=== PATIENT | female | born 1975 | race Caucasian/White ===

== ENCOUNTER 2016-11-20 13:37 | Emergency (ER) | payer MEDICAID ==
[2016-11-20] MEDS ORDERED: DEXAMETHASONE 10 MG/ML VIAL PO STA (14:23)
[2016-11-20] MEDS ORDERED: CHERRY SYRUP 10 ML UDC PO ONE (14:23)
[2016-11-20] MEDS ORDERED: DEXAMETHASONE 10 MG/ML VIAL ONE (14:23)
[2016-11-20] MEDS ORDERED: AMOXICILLIN 250 MG CAPSULE PO STA (14:24)
[2016-11-20] MEDS ORDERED: AMOXICILLIN 250 MG CAPSULE PO ONE (14:26)
== END 2016-11-20 14:39 | disposition home or self-care (01) ==
DX: K04.7 Periapical abscess without sinus (principal); K02.9 Dental caries, unspecified; F17.200 Nicotine dependence, unspecified, uncomplicated
CPT/HCPCS: 99283; A9270

== ENCOUNTER 2017-10-05 15:32 | Emergency (ER) | payer MEDICAID ==
--- NOTE | 2017-10-05 16:42 | ED Physician Documentation ---
PD HPI NVD - Stated complaint Stated Complaint: FLU LIKE SYMPTOMS - Chief complaint Chief Complaint: General - History obtained from History obtained from: Patient - History of Present Illness Timing - onset: How many days ago (3) Timing - duration: Days (3) Timing - details: Abrupt onset, Still present Associated symptoms: Fever, Loss of appetite. 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 ). No: Bad food, Travel, Recent antibiotics Improved by: No: Vomiting Worsened by: Eating Similar symptoms before: Has not had sx before Recently seen: Not recently seen Review of Systems Constitutional: reports: Fever, Chills, Myalgias, Fatigue Nose: reports: Congestion. denies: Rhinorrhea / runny nose Throat: denies: Sore throat Respiratory: reports: Dyspnea, Cough GI: reports: Nausea, Vomiting. denies: Abdominal Pain : denies: Dysuria, Frequency Skin: denies: Rash, Lesions PD PAST MEDICAL HISTORY - Past Medical History Neuro: Headache/migraine - Past Surgical History Past Surgical History: No - Present Medications Home Medications: Ambulatory Orders Medication Instructions Recorded Confirmed Ferrous Sulfate 325 mg PO TID #90 tablet 08/19/15 11/20/16 Sumatriptan Succinate [Imitrex] 25 mg PO Q8H PRN #15 tablet 08/19/15 11/20/16 Amoxicillin 500 mg PO Q8H #30 capsule 11/20/16 HYDROcod/ACETAM 5/325 [[place] 5/325] 1 ea PO Q6H PRN #10 tablet 11/20/16 Ibuprofen [Motrin] 400 mg PO Q6H PRN #30 tablet 11/20/16 Dexamethasone [Decadron] 4 mg PO DAILY #5 tablet 10/05/17 HYDROcod/ACETAM 5/325 [[place] 5/325] 1 tab PO Q6H PRN #12 tablet 10/05/17 Ondansetron Odt [Zofran] 4 mg TL Q6H PRN #15 tablet 10/05/17 Oseltamivir [Tamiflu] 75 mg PO BID #10 capsule 10/05/17 - Allergies Allergies/Adverse Reactions: Allergies Allergy/AdvReac Type Severity Reaction Status Date / Time No Known Drug Allergies Allergy Verified 10/05/17 15:44 - Social History Does the pt smoke?: Yes Smoking Status: Current every day smoker Does the pt drink ETOH?: No Does the pt have substance abuse?: No - Immunizations Immunizations are current?: Yes - POLST Patient has POLST: No PD ED PE NORMAL - Vitals Vital signs reviewed: Yes - General General: Alert and oriented X 3, No acute distress, Well developed/nourished - HEENT HEENT: Ears normal, Pharynx benign. No: Moist mucous membranes - Neck Neck: Supple, no meningeal sign, Other (mild anterior adenopathy) - Cardiac Cardiac: RRR, No murmur - Respiratory Respiratory: Clear bilaterally - Abdomen Abdomen: Normal bowel sounds, Soft, Non tender, Non distended - Back Back: No CVA TTP - Derm Derm: Normal color, Warm and dry, No rash - 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, No motor deficit, Normal speech Results - Vitals Vitals: Oxygen O2 Source Room air - Labs Labs: Laboratory Tests 10/05/17 15:53 Influenza A (Rapid) Negative Influenza B (Rapid) POSITIVE H Influenza Types A,B Ag + H PD MEDICAL DECISION MAKING - ED course Complexity details: reviewed results, considered differential (sounds like the flu. ), d/w patient Departure - Departure Disposition: Home, Self Care Clinical Impression: Influenza B Condition: Stable Record reviewed to determine appropriate education?: Yes Instructions: ED Flu Follow-Up: Trevor Last MD [Primary Care Provider] - Prescriptions: Dexamethasone [Decadron] 4 mg PO DAILY #5 tablet HYDROcod/ACETAM 5/325 [[place] 5/325] 1 tab PO Q6H PRN #12 tablet PRN Reason: Pain Ondansetron Odt [Zofran] 4 mg TL Q6H PRN #15 tablet PRN Reason: Nausea / Vomiting Oseltamivir [Tamiflu] 75 mg PO BID #10 capsule Comments: Drink lots of fluids. Ondansetron if needed for nausea. you can use Decadron for inflammation to try to help with aches and pains. Use Tylenol if needed for fevers and pains. Add hydrocodone if needed for worse pain that can help with some diarrhea as well. Tamiflu can be used to try to reduce the degree of symptoms and shorten the course of the illness. 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 I presume this is likely to be another for 5 more days but he will have to see how you feel. Forms: Activity restrictions Discharge Date/Time: 10/05/17 18:18
[2017-10-05] MEDS ORDERED: ONDANSETRON ODT 4 MG TABLET TL STA (17:17)
[2017-10-05] MEDS ORDERED: DEXAMETHASONE 10 MG/ML VIAL PO STA (17:17)
[2017-10-05] MEDS ORDERED: KETOROLAC 30 MG/ML VIAL IM STA (17:17)
[2017-10-05] MEDS ORDERED: OSELTAMIVIR 75 MG CAPSULE PO STA (17:17)
[2017-10-05] MEDS ORDERED: CHERRY SYRUP 10 ML UDC PO ONE (17:36)
[2017-10-05 17:37] VITALS: BP 126/76
== END 2017-10-05 18:18 | disposition home or self-care (01) ==
LOC: ED 15:32
DX: J10.1 Influenza due to other identified influenza virus with other respiratory manifestations (principal); F17.200 Nicotine dependence, unspecified, uncomplicated
CPT/HCPCS: 87275; 87276; 96372; 99283; A9270; Q0162

== ENCOUNTER 2018-06-08 14:31 | Outpatient (CLI) | payer MEDICAID ==
--- NOTE | 2018-06-08 15:49 | XRAY Report ---
Reason: NUMBNESS TINGLING IN RIGHT ARM, NECK PAIN Procedure Date: 06/08/2018 Accession Number: [id number] / [id number] Procedure: XR - Cervical Spine 2 View CPT Code: FULL RESULT: EXAM: CERVICAL SPINE RADIOGRAPHY EXAM DATE: 06/08/2018 02:54 PM. CLINICAL HISTORY: Numbness, tingling in right arm, neck pain. COMPARISONS: None. TECHNIQUE: 3 views. FINDINGS: Alignment: Normal. No spondylolisthesis or scoliosis. Bones: The cervical vertebral bodies and posterior elements are well visualized from the skull base through C7-T1. No fractures or bone lesions. Disks: Normal. Disk heights are maintained. Facets: No degenerative disease. Soft Tissues: Normal. No prevertebral soft tissue swelling. The visualized lung apices are clear. IMPRESSION: Normal cervical spine radiography. [facility]
== END 2018-06-08 14:32 | disposition home or self-care (01) ==
LOC: DI 14:31
PROVIDERS: ATTEND Physician Assistant Medical
DX: M54.2 Cervicalgia (principal); R20.2 Paresthesia of skin
CPT/HCPCS: 72040

== ENCOUNTER 2018-11-18 13:18 | Emergency (ER) | payer MEDICAID ==
[2018-11-18 13:27] VITALS: BP 111/74
--- NOTE | 2018-11-18 14:12 | ED Physician Documentation ---
History of Present Illness - Stated complaint Stated Complaint: MOUTH PAIN - Chief complaint Chief Complaint: Heent - History obtained from History obtained from: Patient - Additonal information Additional information: Patient is a previously healthy 43-year-old female presenting with concern for dental infection. Patient reports that she has poor dental hygiene at baseline and follows with a dentist. Over the past 1 week, patient has had gum swelling, redness, purulent drainage over the right lower teeth. Patient also reports facial swelling over this area, but no facial erythema. Patient reports area to be extremely painful, but is still able to speak without issue, open her mouth without issue, and eat liquids and solids. No particular symptoms or interventions improve or worsen her complaints. Review of Systems Throat: reports: Dental pain / toothache, Other (Right lower gum swelling and purulent drainage. Poor dental hygiene throughout. Scattered dental caries and multiple missing teeth.Pharyngeal and tonsillar exam benign.) Respiratory: denies: Dyspnea Skin: reports: Other (Mild facial swelling over right lower mandible without erythema) PD PAST MEDICAL HISTORY - Past Medical History Past Medical History: No - Past Surgical History Past Surgical History: No - Present Medications Home Medications: Ambulatory Orders Medication Instructions Recorded Confirmed RX: Ferrous Sulfate 325 mg PO TID #90 tablet 08/19/15 11/20/16 Sumatriptan Succinate [Imitrex] 25 mg PO Q8H PRN #15 tablet 08/19/15 11/20/16 Ibuprofen [Motrin] 400 mg PO Q6H PRN #30 tablet 11/20/16 RX: Amoxicillin 500 mg PO Q8H #30 capsule 11/20/16 RX: HYDROcod/ACETAM 5/325 [[place] 1 ea PO Q6H PRN #10 tablet 11/20/16 5/325] Dexamethasone [Decadron] 4 mg PO DAILY #5 tablet 10/05/17 HYDROcod/ACETAM 5/325 [[place] 5/325] 1 tab PO Q6H PRN #12 tablet 10/05/17 Ondansetron Odt [Zofran] 4 mg TL Q6H PRN #15 tablet 10/05/17 Oseltamivir [Tamiflu] 75 mg PO BID #10 capsule 10/05/17 Chlorhexidine Gluconate [Peridex] 15 ml MM 1-2XD #10 mouthwash 11/18/18 RX: Penicillin Vk 500 mg PO Q6H 10 Days tablet 11/18/18 - Allergies Allergies/Adverse Reactions: Allergies Allergy/AdvReac Type Severity Reaction Status Date / Time No Known Drug Allergies Allergy Verified 11/18/18 13:26 - Social History Does the pt smoke?: Yes Smoking Status: Current every day smoker Does the pt drink ETOH?: No Does the pt have substance abuse?: No - Immunizations Immunizations are current?: Yes - POLST Patient has POLST: No PD ED PE NORMAL - General General: Alert and oriented X 3, No acute distress, Well developed/nourished - HEENT HEENT: Atraumatic, Moist mucous membranes, Pharynx benign, Other (Poor dental hygiene throughout with multiple missing teeth and scattered caries. Purulent drainage with gum swelling to right lower canine. Mild facial swelling without erythema overlying this area.) - Respiratory Respiratory: No respiratory distress - Derm Derm: Normal color, Warm and dry, No rash - 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, Normal speech PD ED PE EXPANDED - HEENT HEENT: Dental abscess Results - Vitals Vitals: Vital Signs - 24 hr 11/18/18 13:25 Temperature 36.5 C Heart Rate 89 Respiratory 20 Rate Blood Pressure 111/74 O2 Saturation 100 Oxygen O2 Source Room air PD MEDICAL DECISION MAKING - ED course Complexity details: considered differential, d/w patient ED course: Patient presenting with poor dental hygiene, multiple missing teeth, scattered dental caries and dental abscess to right lower canine area. Abscess is drain ing along the gumline. Abscess does not appear to continue into sublingual space or submandibular space. No facial erythema or other discolorations, but mild facial swelling overlying this area. No trismus. Do not feel patient is appropriate for dental block given obvious infection. Discussed other interventions including oral antibiotics and mouthwash. Also discussed contacting dentist immediately on Tuesday. Patient voiced understanding and is amenable to discharge plan. Departure - Departure Disposition: 01 Home, Self Care Clinical Impression: Dental abscess Condition: Good Instructions: ED Abscess Dental Follow-Up: Jaydon Herrera PA-C [Primary Care Provider] - Within 3 Days Prescriptions: Chlorhexidine Gluconate [Peridex] 15 ml MM 1-2XD #10 mouthwash RX: Penicillin Vk 500 mg PO Q6H 10 Days tablet Comments: Recommend good oral hygiene. Please use prescribed mouthwash as instructed, as well as take antibiotics as instructed. Please contact her dentist on Tuesday to set up an appointment and otherwise contact her primary care provider in next 2-3 days for follow-up. Please return to ED sooner if experience worsening signs of infection, pain, difficulty swallowing or breathing, difficulty opening your mouth, or other concerns. Discharge Date/Time: 11/18/18 14:37
--- NOTE | 2018-11-19 12:58 | ED Physician Documentation ---
ED Addendum - Addendum Addendum: 11/19/18 12:58 Diagnosis dental abscess Status good
== END 2018-11-18 14:37 | disposition home or self-care (01) ==
LOC: ED 13:18
DX: K04.7 Periapical abscess without sinus (principal); F17.200 Nicotine dependence, unspecified, uncomplicated
CPT/HCPCS: 99283

== ENCOUNTER 2019-08-13 15:07 | Emergency (ER) | payer MEDICAID ==
[2019-08-13] MEDS ORDERED: HYDROcod/ACETAM 5/325 MG TABLET PO STA (16:36)
[2019-08-13] MEDS ORDERED: predniSONE 20 MG TABLET PO STA (16:36)
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
[2019-08-13 17:12] VITALS: BP 159/98
== END 2019-08-13 17:05 | disposition home or self-care (01) ==
LOC: ED 15:07
DX: M54.5 Low back pain (principal); F17.200 Nicotine dependence, unspecified, uncomplicated
CPT/HCPCS: 99282; 99284; A9270; J7512

== ENCOUNTER 2019-09-16 08:00 | Outpatient (CLI) | payer MEDICAID | END 2019-09-16 23:59 | LOC: LAB.R 08:00 | PROVIDERS: ATTEND Family Medicine | DX: F10.929 Alcohol use, unspecified with intoxication, unspecified (principal) | CPT/HCPCS: 80320 ==

== ENCOUNTER 2019-11-17 20:07 | Emergency (ER) | payer MEDICAID ==
--- NOTE | 2019-11-17 20:24 | ED Physician Documentation ---
History of Present Illness - Stated complaint Stated Complaint: CP/BACK PX - Chief complaint Chief Complaint: Cardiac - History obtained from History obtained from: Patient (The patient is a 44-year-old female who presents with multiple complaints. She is complaining of chest pain, back pain, abdominal pain, subjective fever subjective chills subjective cough denies headache neck pain or rashes. Reports she did not take anything prior to arrival. Reports she drinks some milk and then became nauseated.Denies any recent travel outside the country in the last 14 days.) Review of Systems Constitutional: reports: Chills, Myalgias, Reviewed and negative Eyes: reports: Reviewed and negative Ears: reports: Reviewed and negative Nose: reports: Reviewed and negative Throat: reports: Reviewed and negative Cardiac: reports: Palpitations Respiratory: reports: Reviewed and negative GI: reports: Reviewed and negative : reports: Reviewed and negative Skin: reports: Reviewed and negative Musculoskeletal: reports: Back pain Neurologic: reports: Reviewed and negative Psychiatric: reports: Reviewed and negative Endocrine: reports: Reviewed and negative Immunocompromised: reports: Reviewed and negative PD PAST MEDICAL HISTORY - Past Surgical History Past Surgical History: No - Present Medications Home Medications: Ambulatory Orders Medication Instructions Recorded Confirmed Ferrous Sulfate 325 mg PO TID #90 tablet 08/19/15 11/20/16 Sumatriptan Succinate [Imitrex] 25 mg PO Q8H PRN #15 tablet 08/19/15 11/20/16 Amoxicillin 500 mg PO Q8H #30 capsule 11/20/16 HYDROcod/ACETAM 5/325 [[place] 5/325] 1 ea PO Q6H PRN #10 tablet 11/20/16 Ibuprofen [Motrin] 400 mg PO Q6H PRN #30 tablet 11/20/16 HYDROcod/ACETAM 5/325 [[place] 5/325] 1 tab PO Q6H PRN #12 tablet 10/05/17 Ondansetron Odt [Zofran] 4 mg TL Q6H PRN #15 tablet 10/05/17 Oseltamivir [Tamiflu] 75 mg PO BID #10 capsule 10/05/17 dexAMETHasone [Decadron] 4 mg PO DAILY #5 tablet 10/05/17 Chlorhexidine Gluconate [Peridex] 15 ml MM 1-2XD #10 mouthwash 11/18/18 Penicillin Vk 500 mg PO Q6H 10 Days tablet 11/18/18 Hydrocodone/Acetaminophen 1 - 2 each PO Q6H PRN #14 tablet 08/13/19 [Hydrocodon-Acetaminophen 5-325] predniSONE [Deltasone] 20 mg PO [id number] #21 tab 08/13/19 - Allergies Allergies/Adverse Reactions: Allergies Allergy/AdvReac Type Severity Reaction Status Date / Time No Known Drug Allergies Allergy Verified 11/17/19 20:17 - Social History Does the pt smoke?: Yes Smoking Status: Current every day smoker Does the pt drink ETOH?: No Does the pt have substance abuse?: No - Immunizations Immunizations are current?: Yes - POLST Patient has POLST: No PD ED PE NORMAL - Vitals Vital signs reviewed: Yes - General General: Alert and oriented X 3, No acute distress, Well developed/nourished - HEENT HEENT: Atraumatic, PERRL, EOMI, Ears normal, Moist mucous membranes, Pharynx benign, Dentition benign - Neck Neck: Supple, no meningeal sign, No JVD - Cardiac Cardiac: RRR, No murmur, Strong equal pulses - Respiratory Respiratory: No respiratory distress, Clear bilaterally - Abdomen Abdomen: Normal bowel sounds, Soft, Non tender, Non distended, No organomegaly - Female Female : Deferred - Rectal Rectal: Deferred - Back Back: No CVA TTP, No spinal TTP - Derm Derm: Normal color, Warm and dry, No rash - Extremities Extremities: No deformity, No tenderness to palpate, Normal ROM s pain, No edema, No calf tenderness / cord - 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, 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, No motor deficit, No sensory deficit, Normal speech - Psych Psych: Normal mood, Normal affect Results - Vitals Vitals: Vital Signs - 24 hr 11/17/19 11/17/19 11/17/19 20:17 20:29 22:11 Temperature 36.7 C 36.9 C Heart Rate 83 82 Respiratory 14 20 Rate Blood Pressure 170/100 H 142/87 H Blood Pressure 170/100 H [Left] O2 Saturation 98 96 Oxygen O2 Source Room air - EKG (time done) 20:19 Rate: Other (NO STEMI) - Labs Labs: Laboratory Tests 11/17/19 11/17/19 11/17/19 20:15 20:47 20:47 WBC 12.5 H RBC 4.17 L Hgb 13.2 Hct 38.9 MCV 93.3 MCH 31.7 H MCHC 33.9 RDW 14.4 Plt Count 354 MPV 9.3 Neut # (Auto) 9.1 H Lymph # (Auto) 2.6 [place] # (Auto) 0.6 Eos # (Auto) 0.1 Baso # (Auto) 0.1 Absolute Nucleated RBC 0.00 Nucleated RBC % 0.0 PT 11.7 INR 1.0 APTT 28.4 D-Dimer 224.2 Sodium 134 L Potassium 3.5 Chloride 102 Carbon Dioxide 23 Anion Gap 9.0 BUN 18 Creatinine 0.9 Estimated GFR (MDRD) 69 L Glucose 129 H Lactic Acid Calcium 9.1 Total Bilirubin 0.6 Direct Bilirubin 0.1 AST 77 H ALT 30 Alkaline Phosphatase 74 Total Creatine Kinase 73 Troponin I High Sens B-Natriuretic Peptide Total Protein 7.3 Albumin 4.1 Globulin 3.2 Lipase 32 Serum HCG, Qual Urine Color Urine Clarity Urine pH Ur Specific [place] Urine Protein Urine Glucose (UA) Urine Ketones Urine Occult Blood Urine Nitrite Urine Bilirubin Urine Urobilinogen Ur Leukocyte Esterase Urine RBC Urine WBC Ur Squamous Epith Cells Urine Bacteria Urine Mucus Ur Microscopic Review Urine Culture Comments Ethyl Alcohol < 5.0 11/17/19 11/17/19 11/17/19 20:47 20:47 20:47 WBC RBC Hgb Hct MCV MCH MCHC RDW Plt Count MPV Neut # (Auto) Lymph # (Auto) [place] # (Auto) Eos # (Auto) Baso # (Auto) Absolute Nucleated RBC Nucleated RBC % PT INR APTT D-Dimer Sodium Potassium Chloride Carbon Dioxide Anion Gap BUN Creatinine Estimated GFR (MDRD) Glucose Lactic Acid 2.0 Calcium Total Bilirubin Direct Bilirubin AST ALT Alkaline Phosphatase Total Creatine Kinase Troponin I High Sens 2.9 B-Natriuretic Peptide 15 Total Protein Albumin Globulin Lipase Serum HCG, Qual Urine Color Urine Clarity Urine pH Ur Specific [place] Urine Protein Urine Glucose (UA) Urine Ketones Urine Occult Blood Urine Nitrite Urine Bilirubin Urine Urobilinogen Ur Leukocyte Esterase Urine RBC Urine WBC Ur Squamous Epith Cells Urine Bacteria Urine Mucus Ur Microscopic Review Urine Culture Comments Ethyl Alcohol 11/17/19 11/17/19 20:47 21:57 WBC RBC Hgb Hct MCV MCH MCHC RDW Plt Count MPV Neut # (Auto) Lymph # (Auto) [place] # (Auto) Eos # (Auto) Baso # (Auto) Absolute Nucleated RBC Nucleated RBC % PT INR APTT D-Dimer Sodium Potassium Chloride Carbon Dioxide Anion Gap BUN Creatinine Estimated GFR (MDRD) Glucose Lactic Acid Calcium Total Bilirubin Direct Bilirubin AST ALT Alkaline Phosphatase Total Creatine Kinase Troponin I High Sens B-Natriuretic Peptide Total Protein Albumin Globulin Lipase Serum HCG, Qual NEGATIVE Urine Color YELLOW Urine Clarity CLEAR Urine pH 5.5 Ur Specific [place] >=1.030 H Urine Protein NEGATIVE Urine Glucose (UA) NEGATIVE Urine Ketones NEGATIVE Urine Occult Blood SMALL H Urine Nitrite NEGATIVE Urine Bilirubin NEGATIVE Urine Urobilinogen 0.2 (NORMAL) Ur Leukocyte Esterase NEGATIVE Urine RBC 6-10 H Urine WBC 0-3 Ur Squamous Epith Cells MOD Squamous H Urine Bacteria None Seen Urine Mucus Moderate Strands Ur Microscopic Review INDICATED Urine Culture Comments NOT INDICATED Ethyl Alcohol PD MEDICAL DECISION MAKING - ED course Complexity details: reviewed results, re-evaluated patient (23:00 Asymptomatic, pain-free with requesting to be discharged home patient updated on all of her results.), considered differential (Viral syndrome, although unlikely but it is in the differential would be ACS, PE, pneumothorax, esophageal rupture, Cardiac tamponade. Pneumonia bronchitis esophagitis pancreatitis cholecystitis. Given the fact that the patient is now pain-free and asymptomatic her work-up is unremarkable she has a negative chest x-ray negative EKG negative troponin negat reynold d-dimer LFTs are unremarkable lipase is will she does have a mild leukocytosis however she is well-appearing on the a.m. no headache no neck pain no rashes no chest pain on reevaluation no back pain on reevaluation no abdominal pain tolerated p.o. challenge has a steady gait and is asking to be discharged home.), d/w patient Departure - Departure Disposition: 01 Home, Self Care Clinical Impression: Viral syndrome Condition: Stable Instructions: ED Viral Syndrome Follow-Up: Jaydon Herrera PA-C [Primary Care Provider] - Within 3 Days
[2019-11-17] MEDS ORDERED: ASPIRIN CHEW 81 MG TABLET PO STA (20:32)
[2019-11-17] MEDS ORDERED: SODIUM CHLORIDE 0.9% 1,000 ML IV ONE (20:42)
[2019-11-17] MEDS ORDERED: ONDANSETRON 4 MG/2 ML VIAL IVP STA (20:42)
[2019-11-17] MEDS ORDERED: MORPHINE 2 MG/ML CARPUJECT IVP STA (20:42)
[2019-11-17 21:07] LABS: BASOPHILS # (AUTO) 0.1 10^3/uL (0.0-0.1); BASOPHILS % (AUTO) 0.8 %; EOSINOPHILS # (AUTO) 0.1 10^3/uL (0.0-0.7); EOSINOPHILS % (AUTO) 0.7 %; HGB - HEMOGLOBIN 13.2 g/dL (12.0-16.0); LYMPHOCYTES # (AUTO) 2.6 10^3/uL (1.5-3.5); LYMPHOCYTES % (AUTO) 20.5 %; MEAN CORPUSCULAR HEMOGLOBIN 31.7 pg (27.0-31.0); MEAN CORPUSCULAR HGB CONC 33.9 g/dL (32.0-36.0); MEAN CORPUSCULAR VOLUME 93.3 fL (81.0-99.0); MEAN PLATELET VOLUME 9.3 fL (7.9-10.8); MONOCYTES # (AUTO) 0.6 10^3/uL (0.0-1.0); MONOCYTES % (AUTO) 4.9 %; NEUTROPHILS # (AUTO) 9.1 10^3/uL (1.5-6.6); NEUTROPHILS % (AUTO) 72.7 %; PLT - PLATELET COUNT 354 10^3/uL (130-450); RED BLOOD COUNT 4.17 10^6/uL (4.20-5.40); RED CELL DISTRIBUTION WIDTH 14.4 % (12.0-15.0); WHITE BLOOD COUNT 12.5 x10^3/uL (4.8-10.8)
--- NOTE | 2019-11-17 21:24 | XRAY Report ---
Reason: cp Procedure Date: 11/17/2019 Accession Number: [id number] / [id number] Procedure: XR - Chest 2 View X-Ray CPT Code: 71728 Final Report FULL RESULT: EXAM: CHEST RADIOGRAPHY EXAM DATE: 11/17/2019 09:10 PM. CLINICAL HISTORY: Chest pain. COMPARISON: None available. TECHNIQUE: 2 views. FINDINGS: Heart size is normal. No consolidation, pleural effusion, or pneumothorax. IMPRESSION: No acute cardiopulmonary findings. [facility]
[2019-11-17 21:30] LABS: ALBUMIN 4.1 g/dL (3.2-5.5); ALKALINE PHOSPHATASE 74 IU/L (42-121); BUN - BLOOD UREA NITROGEN 18 mg/dL (6-20); CALCIUM 9.1 mg/dL (8.5-10.3); CARBON DIOXIDE - CO2 23 mmol/L (21-32); CHLORIDE 102 mmol/L (101-111); CK- CREATINE KINASE 73 IU/L (22-269); CREATININE 0.9 mg/dL (0.4-1.0); GFR - MDRD 69 (>89); GLUCOSE 129 mg/dL (70-100); LIPASE 32 U/L (22-51); SODIUM 134 mmol/L (135-145); TOTAL PROTEIN 7.3 g/dL (6.7-8.2)
[2019-11-17 21:31] LABS: HCG,QUALITATIVE BLOOD NEGATIVE
[2019-11-17 21:36] LABS: D-DIMER 224.2 ng/mL (200.0-255.0)
[2019-11-17 21:40] LABS: PT - PROTHROMBIN TIME 11.7 secs (9.9-12.6)
[2019-11-17 21:47] LABS: PARTIAL THROMBOPLASTIN TIME 28.4 secs (24.9-33.3)
[2019-11-17 21:49] LABS: ALT ALANINE AMINOTRANSFERASE 30 IU/L (10-60); AST ASPARTATE AMINOTRANSFERASE 77 IU/L (10-42); BILIRUBIN,DIRECT 0.1 mg/dL (0.1-0.5); BILIRUBIN,TOTAL 0.6 mg/dL (0.2-1.0)
[2019-11-17 22:10] LABS: GLUCOSE, URINE (UA) NEGATIVE (NEGATIVE); KETONES,URINE (UA) NEGATIVE (NEGATIVE); LEUKOCYTE ESTERASE, URINE NEGATIVE (NEGATIVE); NITRITE,URINE NEGATIVE (NEGATIVE); OCCULT BLOOD,URINE SMALL (NEGATIVE); PH,URINE 5.5 PH (5.0-7.5); PROTEIN,URINE NEGATIVE (NEGATIVE); UROBILINOGEN,URINE 0.2 (NORMAL) E.U./dL (NORMAL)
[2019-11-17 22:13] LABS: CLARITY,URINE CLEAR (CLEAR)
[2019-11-17 22:14] LABS: BILIRUBIN,URINE NEGATIVE (NEGATIVE); ICTOTEST,URINE NEGATIVE
[2019-11-17 22:24] LABS: BACTERIA,URINE None Seen /HPF (None Seen); MUCUS,URINE Moderate Strands; SQUAMOUS EPITHELIAL CELL,UR MOD Squamous (<= Few)
[2019-11-17 23:18] VITALS: BP 131/81
== END 2019-11-17 23:24 | disposition home or self-care (01) ==
LOC: ED 20:07
DX: B34.9 Viral infection, unspecified (principal); F17.210 Nicotine dependence, cigarettes, uncomplicated
CPT/HCPCS: 36415; 71046; 80048; 80076; 80320; 81001; 82550; 83605; 83690; 83880; 84484; 84703; 85025; 85379; 85610; 85730; 93005; 96361; 96374; 99284; A9270; 81003; 87086

== ENCOUNTER 2019-11-23 07:26 | Outpatient (CLI) | payer MEDICAID ==
[2019-11-23 07:59] LABS: BASOPHILS # (AUTO) 0.1 10^3/uL (0.0-0.1); BASOPHILS % (AUTO) 0.9 %; EOSINOPHILS # (AUTO) 0.1 10^3/uL (0.0-0.7); EOSINOPHILS % (AUTO) 1.5 %; HGB - HEMOGLOBIN 13.6 g/dL (12.0-16.0); LYMPHOCYTES # (AUTO) 3.2 10^3/uL (1.5-3.5); LYMPHOCYTES % (AUTO) 35.2 %; MEAN CORPUSCULAR HEMOGLOBIN 32.2 pg (27.0-31.0); MEAN CORPUSCULAR HGB CONC 33.7 g/dL (32.0-36.0); MEAN CORPUSCULAR VOLUME 95.3 fL (81.0-99.0); MEAN PLATELET VOLUME 9.1 fL (7.9-10.8); MONOCYTES # (AUTO) 0.6 10^3/uL (0.0-1.0); MONOCYTES % (AUTO) 6.4 %; NEUTROPHILS # (AUTO) 5.1 10^3/uL (1.5-6.6); NEUTROPHILS % (AUTO) 55.6 %; PLT - PLATELET COUNT 335 10^3/uL (130-450); RED BLOOD COUNT 4.23 10^6/uL (4.20-5.40); WHITE BLOOD COUNT 9.2 x10^3/uL (4.8-10.8)
[2019-11-23 08:04] LABS: ALBUMIN/GLOBULIN RATIO 1.2 (1.0-2.2); ALKALINE PHOSPHATASE 73 IU/L (42-121); ALT ALANINE AMINOTRANSFERASE 27 IU/L (10-60); AST ASPARTATE AMINOTRANSFERASE 45 IU/L (10-42); BILIRUBIN,TOTAL 0.9 mg/dL (0.2-1.0); BUN - BLOOD UREA NITROGEN 16 mg/dL (6-20); CALCIUM 9.1 mg/dL (8.5-10.3); CARBON DIOXIDE - CO2 25 mmol/L (21-32); CHLORIDE 102 mmol/L (101-111); CHOL/HDL RATIO 3.1 (<4.4); CHOLESTEROL 234 mg/dL; CREATININE 0.7 mg/dL (0.4-1.0); GFR - MDRD 92 (>89); GLUCOSE 93 mg/dL (70-100); HDL CHOLESTEROL 76 mg/dL; LDL CHOLESTEROL,CALCULATED 142 mg/dL; LDL/HDL RATIO 1.9 (<4.4); SODIUM 135 mmol/L (135-145); TOTAL PROTEIN 7.3 g/dL (6.7-8.2); VLDL CHOLESTEROL 16 mg/dL
== END 2019-11-23 07:27 | disposition home or self-care (01) ==
LOC: LAB 07:26
PROVIDERS: ATTEND Physician Assistant Medical
DX: I10 Essential (primary) hypertension (principal); F17.200 Nicotine dependence, unspecified, uncomplicated
CPT/HCPCS: 36415; 80050; 80061; 83721

== ENCOUNTER 2020-01-14 17:32 | Emergency (ER) | payer MEDICAID ==
[2020-01-14] MEDS ORDERED: THIAMINE 100 MG TABLET PO STA (17:58)
--- NOTE | 2020-01-14 17:59 | ED Physician Documentation ---
History of Present Illness - Stated complaint Stated Complaint: DETOX - Chief complaint Chief Complaint: General - History obtained from History obtained from: Patient - History of Present Illness Timing: Chronic (44-year-old woman has been drinking heavily for the last 4 months. About a gallon of whiskey a day. She presents requesting help with detox and with depression. She denies suicidal or homicidal ideation. 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, 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) : None HEENT: None Psych: None Musculoskeletal: None Derm: None - Past Surgical History Past Surgical History: No - Present Medications Home Medications: Ambulatory Orders Medication Instructions Recorded Confirmed Lisinopril [Prinivil] 10 mg PO DAILY 01/14/20 01/14/20 Migraine Otc Medication ORAL DAILY 01/14/20 - Allergies Allergies/Adverse Reactions: Allergies Allergy/AdvReac Type Severity Reaction Status Date / Time No Known Drug Allergies Allergy Verified 01/14/20 17:36 - Social History Does the pt smoke?: Yes Smoking Status: Current every day smoker Does the pt drink ETOH?: No Does the pt have substance abuse?: No - Family History Family history: reports: Non contributory - Immunizations Immunizations are current?: Yes Immunizations: TDAP >10years/unknown - POLST Patient has POLST: No PD ED PE NORMAL - Vitals Vital signs reviewed: Yes - General General: Alert and oriented X 3 (She is tearful with bloodshot eyes, poor eye contact but in no distress. She is alert and oriented.) - HEENT HEENT: PERRL, EOMI - Neck Neck: Supple, no meningeal sign, No bony TTP - Cardiac Cardiac: RRR, No murmur - Respiratory Respiratory: No respiratory distress, Clear bilaterally - Abdomen Abdomen: Non tender, Non distended - Back Back: No CVA TTP, No spinal TTP - Derm Derm: Normal color, Warm and dry - Extremities Extremities: No edema, No calf tenderness / cord - 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, Normal speech Results - Vitals Vitals: Vital Signs - 24 hr 01/14/20 01/14/20 17:36 19:14 Temperature 36.5 C 36.2 C L Heart Rate 100 88 Respiratory 20 16 Rate Blood Pressure 144/100 H 117/78 O2 Saturation 100 95 Oxygen O2 Source Room air - Labs Labs: Laboratory Tests 01/14/20 01/14/20 01/14/20 17:50 17:50 18:32 WBC 9.1 RBC 4.33 Hgb 14.6 Hct 42.1 MCV 97.2 MCH 33.7 H MCHC 34.7 RDW 15.9 H Plt Count 237 MPV 8.6 Neut # (Auto) 5.8 Lymph # (Auto) 2.4 [place] # (Auto) 0.6 Eos # (Auto) 0.1 Baso # (Auto) 0.1 Absolute Nucleated RBC 0.00 Nucleated RBC % 0.0 Sodium Potassium Chloride Carbon Dioxide Anion Gap BUN Creatinine Estimated GFR (MDRD) Glucose Calcium Total Bilirubin AST ALT Alkaline Phosphatase Total Protein Albumin Globulin Albumin/Globulin Ratio Lipase TSH Urine Color YELLOW Urine Clarity CLEAR Urine pH 6.5 Ur Specific [place] 1.010 Urine Protein NEGATIVE Urine Glucose (UA) NEGATIVE Urine Ketones TRACE Urine Occult Blood SMALL H Urine Nitrite NEGATIVE Urine Bilirubin NEGATIVE Urine Urobilinogen 0.2 (NORMAL) Ur Leukocyte Esterase NEGATIVE Urine RBC 0-5 Urine WBC 0-3 Ur Squamous Epith Cells MANY Squamous H Urine Bacteria None Seen Ur Microscopic Review INDICATED Urine Culture Comments NOT INDICATED Urine HCG, Qual NEGATIVE Salicylates Urine Opiates Screen NEGATIVE Ur Oxycodone Screen NEGATIVE Urine Methadone Screen NEGATIVE Ur Propoxyphene Screen NEGATIVE Acetaminophen Ur Barbiturates Screen NEGATIVE Ur Tricyclics Screen NEGATIVE Ur Phencyclidine Scrn NEGATIVE Ur Amphetamine Screen NEGATIVE U Methamphetamines Scrn NEGATIVE U Benzodiazepines Scrn NEGATIVE Urine Cocaine Screen NEGATIVE U Cannabinoids Screen POSITIVE H Ethyl Alcohol 01/14/20 01/14/20 18:32 18:32 WBC RBC Hgb Hct MCV MCH MCHC RDW Plt Count MPV Neut # (Auto) Lymph # (Auto) [place] # (Auto) Eos # (Auto) Baso # (Auto) Absolute Nucleated RBC Nucleated RBC % Sodium 140 Potassium 3.1 L Chloride 103 Carbon Dioxide 23 Anion Gap 14.0 H BUN 14 Creatinine 0.6 Estimated GFR (MDRD) 110 Glucose 78 Calcium 8.5 Total Bilirubin 0.5 AST 87 H ALT 75 H Alkaline Phosphatase 91 Total Protein 7.1 Albumin 4.0 Globulin 3.1 Albumin/Globulin Ratio 1.3 Lipase 190 H TSH 1.38 Urine Color Urine Clarity Urine pH Ur Specific [place] Urine Protein Urine Glucose (UA) Urine Ketones Urine Occult Blood Urine Nitrite Urine Bilirubin Urine Urobilinogen Ur Leukocyte Esterase Urine RBC Urine WBC Ur Squamous Epith Cells Urine Bacteria Ur Microscopic Review Urine Culture Comments Urine HCG, Qual Salicylates < 6.0 Urine Opiates Screen Ur Oxycodone Screen Urine Methadone Screen Ur Propoxyphene Screen Acetaminophen < 10 L Ur Barbiturates Screen Ur Tricyclics Screen Ur Phencyclidine Scrn Ur Amphetamine Screen U Methamphetamines Scrn U Benzodiazepines Scrn Urine Cocaine Screen U Cannabinoids Screen Ethyl Alcohol 277.8 PD MEDICAL DECISION MAKING - ED course ED course: 44-year-old woman presents with alcohol intoxication and ongoing abuse. We were arranging for outpatient detox, but she came out of the room yelling about her nurse being rude and eloped out of the department despite my attempts to talk her down. Departure - Departure Disposition: ED [place] Clinical Impression: Alcohol abuse Alcohol intoxication Qualifiers: Complication of substance-induced condition: uncomplicated Qualified Code(s): F10.920 - Alcohol use, unspecified with intoxication, uncomplicated Condition: Stable
[2020-01-14 18:03] LABS: MUDS CUTOFF CONCENTRATIONS CUTOFF CONC BELOW:
[2020-01-14 18:06] LABS: BILIRUBIN,URINE NEGATIVE (NEGATIVE); GLUCOSE, URINE (UA) NEGATIVE (NEGATIVE); KETONES,URINE (UA) TRACE mg/dL (NEGATIVE); LEUKOCYTE ESTERASE, URINE NEGATIVE (NEGATIVE); NITRITE,URINE NEGATIVE (NEGATIVE); OCCULT BLOOD,URINE SMALL (NEGATIVE); PH,URINE 6.5 PH (5.0-7.5); PROTEIN,URINE NEGATIVE (NEGATIVE); UROBILINOGEN,URINE 0.2 (NORMAL) E.U./dL (NORMAL)
[2020-01-14 18:08] LABS: CLARITY,URINE CLEAR (CLEAR); HCG UR QUAL NEGATIVE
[2020-01-14 18:18] LABS: AMPHETAMINE SCREEN,URINE NEGATIVE (NEGATIVE); BACTERIA,URINE None Seen /HPF (None Seen); BENZODIAZEPINES SCREEN, URINE NEGATIVE (NEGATIVE); COCAINE SCREEN URINE NEGATIVE (NEGATIVE); METHADONE SCREEN, URINE NEGATIVE (NEGATIVE); METHAMPHETAMINES SCREEN, URINE NEGATIVE (NEGATIVE); OPIATE SCREEN, URINE NEGATIVE (NEGATIVE); OXYCODONE SCREEN, URINE NEGATIVE (NEGATIVE); PROPOXYPHENE SCREEN, URINE NEGATIVE (NEGATIVE); RBC,URINE 0-5 /HPF (0-5); SQUAMOUS EPITHELIAL CELL,UR MANY Squamous (<= Few); TRICYCLIC ANTIDEPRESSANT,URINE NEGATIVE (NEGATIVE)
[2020-01-14 18:35] LABS: BASOPHILS # (AUTO) 0.1 10^3/uL (0.0-0.1); BASOPHILS % (AUTO) 1.1 %; EOSINOPHILS # (AUTO) 0.1 10^3/uL (0.0-0.7); EOSINOPHILS % (AUTO) 1.3 %; HGB - HEMOGLOBIN 14.6 g/dL (12.0-16.0); LYMPHOCYTES # (AUTO) 2.4 10^3/uL (1.5-3.5); LYMPHOCYTES % (AUTO) 26.8 %; MEAN CORPUSCULAR HEMOGLOBIN 33.7 pg (27.0-31.0); MEAN CORPUSCULAR HGB CONC 34.7 g/dL (32.0-36.0); MEAN CORPUSCULAR VOLUME 97.2 fL (81.0-99.0); MEAN PLATELET VOLUME 8.6 fL (7.9-10.8); MONOCYTES # (AUTO) 0.6 10^3/uL (0.0-1.0); MONOCYTES % (AUTO) 6.8 %; NEUTROPHILS # (AUTO) 5.8 10^3/uL (1.5-6.6); NEUTROPHILS % (AUTO) 63.7 %; PLT - PLATELET COUNT 237 10^3/uL (130-450); RED BLOOD COUNT 4.33 10^6/uL (4.20-5.40); RED CELL DISTRIBUTION WIDTH 15.9 % (12.0-15.0); WHITE BLOOD COUNT 9.1 x10^3/uL (4.8-10.8)
[2020-01-14 18:52] LABS: ACETAMINOPHEN < 10 ug/mL (10-30); ALBUMIN/GLOBULIN RATIO 1.3 (1.0-2.2); ALKALINE PHOSPHATASE 91 IU/L (42-121); ALT ALANINE AMINOTRANSFERASE 75 IU/L (10-60); AST ASPARTATE AMINOTRANSFERASE 87 IU/L (10-42); BILIRUBIN,TOTAL 0.5 mg/dL (0.2-1.0); BUN - BLOOD UREA NITROGEN 14 mg/dL (6-20); CALCIUM 8.5 mg/dL (8.5-10.3); CARBON DIOXIDE - CO2 23 mmol/L (21-32); CHLORIDE 103 mmol/L (101-111); CREATININE 0.6 mg/dL (0.4-1.0); GLUCOSE 78 mg/dL (70-100); LIPASE 190 U/L (22-51); SALICYLATE < 6.0 mg/dL; SODIUM 140 mmol/L (135-145); TOTAL PROTEIN 7.1 g/dL (6.7-8.2)
[2020-01-14 19:16] VITALS: BP 117/78
[2020-01-14] MEDS ORDERED: ONDANSETRON ODT 4 MG TABLET TL STA (19:21)
== END 2020-01-14 20:20 | disposition left against medical advice (07) ==
LOC: ED 17:32
DX: F10.129 Alcohol abuse with intoxication, unspecified (principal); F32.9 Major depressive disorder, single episode, unspecified; F17.200 Nicotine dependence, unspecified, uncomplicated; Z53.20 Procedure and treatment not carried out because of patient's decision for unspecified reasons
CPT/HCPCS: 36415; 80053; 80306; 80307; 80320; 80329; 81001; 81025; 83690; 84443; 85025; 99283; A9270; Q0162; 81003; 87086

== ENCOUNTER 2020-01-19 10:13 | Inpatient (IN) | payer MEDICAID ==
[2020-01-19 10:41] LABS: BASOPHILS # (AUTO) 0.1 10^3/uL (0.0-0.1); BASOPHILS % (AUTO) 1.1 %; EOSINOPHILS # (AUTO) 0.1 10^3/uL (0.0-0.7); EOSINOPHILS % (AUTO) 0.7 %; HGB - HEMOGLOBIN 16.6 g/dL (12.0-16.0); LYMPHOCYTES # (AUTO) 1.4 10^3/uL (1.5-3.5); LYMPHOCYTES % (AUTO) 12.9 %; MEAN CORPUSCULAR HEMOGLOBIN 34.1 pg (27.0-31.0); MEAN CORPUSCULAR HGB CONC 34.3 g/dL (32.0-36.0); MEAN CORPUSCULAR VOLUME 99.4 fL (81.0-99.0); MEAN PLATELET VOLUME 9.1 fL (7.9-10.8); MONOCYTES # (AUTO) 0.9 10^3/uL (0.0-1.0); MONOCYTES % (AUTO) 8.4 %; NEUTROPHILS # (AUTO) 8.5 10^3/uL (1.5-6.6); NEUTROPHILS % (AUTO) 76.4 %; PLT - PLATELET COUNT 324 10^3/uL (130-450); RED BLOOD COUNT 4.87 10^6/uL (4.20-5.40); RED CELL DISTRIBUTION WIDTH 15.5 % (12.0-15.0); WHITE BLOOD COUNT 11.2 x10^3/uL (4.8-10.8)
[2020-01-19 11:11] LABS: ALBUMIN/GLOBULIN RATIO 1.3 (1.0-2.2); BILIRUBIN,TOTAL 1.1 mg/dL (0.2-1.0); CALCIUM 9.8 mg/dL (8.5-10.3); CREATININE 0.9 mg/dL (0.4-1.0); TOTAL PROTEIN 8.9 g/dL (6.7-8.2)
[2020-01-19] MEDS ORDERED: ONDANSETRON 4 MG/2 ML VIAL IVP STA (11:45)
[2020-01-19] MEDS ORDERED: MORPHINE 2 MG/ML CARPUJECT IVP STA (11:45)
[2020-01-19] MEDS ORDERED: FOLIC ACID INJ 1 MG, THIAMINE INJ 100 MG, MAGNESIUM SULFATE 2 GM, MULTIVITAMIN 10 ML in... IV STA ×5 (11:45)
--- NOTE | 2020-01-19 11:48 | ED Physician Documentation ---
PD HPI ABD PAIN - Stated complaint Stated Complaint: ABD PAIN - Chief complaint Chief Complaint: Abd Pain - History obtained from History obtained from: Patient - History of Present Illness Timing - onset: How many weeks ago (1) Timing - duration: Weeks (1) Timing - details: Gradual onset, Still present Quality: Cramping, Sharp, Pain Location: Epigastric Radiation: Chest Improved by: Vomiting Worsened by: Eating, Palpation Associated symptoms: Nausea, Vomiting, Loss of appetite Similar symptoms before: Has not had sx before Recently seen: Emergency Dept - Additional information Additional information: 42-year-old female with history of alcoholism consumes large quantities of whiskey and she has developed abdominal pain over the past week she has had vomiting and epigastric pain and she has not been able to drink. She has not been able hold down fluids and she is coming to the emergency department today with epigastric pain vomiting and alcohol withdrawal. She came to the emergency department several days ago but felt that her nurse was rude and she left the department before being seen. She reports daily alcohol consumption since July. Review of Systems Constitutional: denies: Fever Eyes: denies: Decreased vision Ears: denies: Ear pain Nose: denies: Congestion Throat: denies: Sore throat Cardiac: denies: Chest pain / pressure, Palpitations Respiratory: denies: Dyspnea, Cough GI: reports: Abdominal Pain, Nausea, Vomiting : denies: Dysuria, Frequency Skin: denies: Rash Musculoskeletal: denies: Neck pain, Back pain, Extremity pain Neurologic: reports: Generalized weakness. 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, 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) : None HEENT: None Psych: None Musculoskeletal: None Derm: None - Past Surgical History Past Surgical History: No /CREDIT BALANCE SPECIALIST: Other - Present Medications Home Medications: Ambulatory Orders Medication Instructions Recorded Confirmed No Known Home Medications 01/19/20 01/19/20 - Allergies Allergies/Adverse Reactions: Allergies Allergy/AdvReac Type Severity Reaction Status Date / Time No Known Drug Allergies Allergy Verified 01/19/20 10:21 - Social History Does the pt smoke?: Yes Smoking Status: Current every day smoker Does the pt drink ETOH?: No Does the pt have substance abuse?: No - Immunizations Immunizations are current?: Yes Immunizations: TDAP >10years/unknown - POLST Patient has POLST: No PD ED PE NORMAL - Vitals Vital signs reviewed: Yes (tachy and hypertensive ) - General General: Alert and oriented X 3, Well developed/nourished, Other (The patient appears to be in pain ) - HEENT HEENT: Atraumatic, PERRL, EOMI, Other (dry mucous membranes) - Neck Neck: Supple, no meningeal sign, No bony TTP - Cardiac Cardiac: No murmur, Other (tachy ) - Respiratory Respiratory: No respiratory distress, Clear bilaterally - Abdomen Abdomen: Soft, Other (epigastric tenderness with garding and no referred tenderness. 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 ) Results - Vitals Vitals: Vital Signs - 24 hr 01/19/20 01/19/20 01/19/20 10:16 12:10 13:33 Temperature 36.9 C Heart Rate 119 H 110 H 117 H Respiratory 22 16 16 Rate Blood Pressure 140/118 H 122/98 H 154/110 H O2 Saturation 99 95 98 Oxygen O2 Source Room air - Labs Labs: Laboratory Tests 01/19/20 01/19/20 01/19/20 10:32 10:32 11:40 WBC 11.2 H RBC 4.87 Hgb 16.6 H Hct 48.4 H MCV 99.4 H MCH 34.1 H MCHC 34.3 RDW 15.5 H Plt Count 324 MPV 9.1 Neut # (Auto) 8.5 H Lymph # (Auto) 1.4 L [place] # (Auto) 0.9 Eos # (Auto) 0.1 Baso # (Auto) 0.1 Absolute Nucleated RBC 0.00 Nucleated RBC % 0.0 Sodium 138 Potassium 3.7 Chloride 97 L Carbon Dioxide 8 L* Anion Gap 33.0 H BUN 19 Creatinine 0.9 Estimated GFR (MDRD) 69 L Glucose 80 Calcium 9.8 Total Bilirubin 1.1 H AST 103 H ALT 66 H Alkaline Phosphatase 123 H Total Protein 8.9 H Albumin 5.0 Globulin 3.9 Albumin/Globulin Ratio 1.3 Lipase 740 H Urine Color YELLOW Urine Clarity CLEAR Urine pH 6.0 Ur Specific [place] >=1.030 H Urine Protein 100 H Urine Glucose (UA) NEGATIVE Urine Ketones >=80 H Urine Occult Blood MODERATE H Urine Nitrite NEGATIVE Urine Bilirubin NEGATIVE Urine Urobilinogen 0.2 (NORMAL) Ur Leukocyte Esterase NEGATIVE Urine RBC 0-5 Urine WBC 0-3 Ur Squamous Epith Cells FEW Squamous Urine Bacteria Few Ur Microscopic Review INDICATED Urine Culture Comments NOT INDICATED Urine HCG, Qual Ethyl Alcohol 90.1 01/19/20 11:40 WBC RBC Hgb Hct MCV MCH MCHC RDW Plt Count MPV Neut # (Auto) Lymph # (Auto) [place] # (Auto) Eos # (Auto) Baso # (Auto) Absolute Nucleated RBC Nucleated RBC % Sodium Potassium Chloride Carbon Dioxide Anion Gap BUN Creatinine Estimated GFR (MDRD) Glucose Calcium Total Bilirubin AST ALT Alkaline Phosphatase Total Protein Albumin Globulin Albumin/Globulin Ratio Lipase Urine Color Urine Clarity Urine pH Ur Specific [place] >=1.030 H Urine Protein Urine Glucose (UA) Urine Ketones Urine Occult Blood Urine Nitrite Urine Bilirubin Urine Urobilinogen Ur Leukocyte Esterase Urine RBC Urine WBC Ur Squamous Epith Cells Urine Bacteria Ur Microscopic Review Urine Culture Comments Urine HCG, Qual NEGATIVE Ethyl Alcohol - Rads (name of study) CT ab/pel w Radiology: Prelim report reviewed, EMP read indepedently, See rad report Procedures - IVC sono (time) 1145 Bedside IVC sono: IVC measures (cm) (0.67), IVC collapsed c insp (cm) (complete), Profound dehydration (est 3 liter deficit.) PD MEDICAL DECISION MAKING - ED course Complexity details: reviewed old records, reviewed results, re-evaluated patient, considered differential, d/w patient ED course: 44-year-old alcoholic female with acute epigastric pain and vomiting appears to have acute pancreatitis by review of her laboratory studies she is extremely dry she has an IVC measured at 0.67 cm estimating her deficit to be at least 3 L. She is administered a banana bag intravenously wide open and morphine and Zofran as well.A CT scan of the abdomen pelvis is undertaken. The scan does show acute pancreatitis without fluid collection. She does have findings in the liver with some hepatic steatosis and a question of a breast mass. The patient is severely dehydrated with an IVC measuring 0.67 centimeters with complete collapse and she does have a lactate of 3.3. She will need admission to the hospital for acute alcoholic pancreatitis. Departure - Departure Disposition: 66 [facility] DC/Xfer Clinical Impression: Dehydration Pancreatitis Qualifiers: Chronicity: acute Pancreatitis type: alcohol induced Acute pancreatitis complication: no infection or necrosis Qualified Code(s): K85.20 - Alcohol induced acute pancreatitis without necrosis or infection Condition: Serious Discharge Date/Time: 01/19/20 14:39
[2020-01-19] MEDS ORDERED: IOVERSOL 320 100 ML VIAL IVP ONE ×2 (11:54→12:40)
[2020-01-19 12:12] LABS: BILIRUBIN,URINE NEGATIVE (NEGATIVE); GLUCOSE, URINE (UA) NEGATIVE (NEGATIVE); KETONES,URINE (UA) >=80 mg/dL (NEGATIVE); LEUKOCYTE ESTERASE, URINE NEGATIVE (NEGATIVE); NITRITE,URINE NEGATIVE (NEGATIVE); OCCULT BLOOD,URINE MODERATE (NEGATIVE); PROTEIN,URINE 100 mg/dL (NEGATIVE); UROBILINOGEN,URINE 0.2 (NORMAL) E.U./dL (NORMAL)
[2020-01-19 12:15] LABS: CLARITY,URINE CLEAR (CLEAR)
[2020-01-19 12:21] LABS: HCG UR QUAL NEGATIVE
[2020-01-19] MEDS ORDERED: HYDROmorphone 1 MG/ML CARPUJECT IVP STA ×2 (12:44→16:12)
[2020-01-19 13:21] LABS: RBC,URINE 0-5 /HPF (0-5); SQUAMOUS EPITHELIAL CELL,UR FEW Squamous (<= Few)
[2020-01-19 13:22] LABS: BACTERIA,URINE Few /HPF (None Seen)
--- NOTE | 2020-01-19 13:45 | CT Report ---
Reason: pancreatitis Procedure Date: 01/19/2020 Accession Number: [id number] / [id number] Procedure: CT - Abdomen/Pelvis W CPT Code: Final Report FULL RESULT: EXAM: CT ABDOMEN AND PELVIS EXAM DATE: 01/19/2020 12:39 PM. CLINICAL HISTORY: Pancreatitis. COMPARISONS: None. TECHNIQUE: Routine helical CT imaging was performed through the abdomen and pelvis. IV contrast: 100 cc Optiray 320. Enteric contrast: No. Reconstructions: Coronal and sagittal. In accordance with CT protocol optimization, one or more of the following dose reduction techniques were utilized for this exam: automated exposure control, adjustment of mA and/or KV based on patient size, or use of iterative reconstructive technique. FINDINGS: Lung Bases: Unremarkable. Liver: There is diffusely low attenuation of the liver, compatible with severe hepatic steatosis. Additional focal fat deposition is present in segment 4B. No focal lesions are demonstrated. Portal veins are patent. Gallbladder/Bile Ducts: Unremarkable. Spleen: Within normal limits. Pancreas: There is mild diffuse peripancreatic haziness. No dilation of the main pancreatic duct. The gland enhances homogeneously. No areas of parenchymal necrosis demonstrated. No loculated pancreatic or peripancreatic collections demonstrated. Adrenal Glands: No nodules. Kidneys: There is a subcentimeter hypoattenuating focus in the lower pole of the left kidney which is too small to characterize. There is also a 2 mm nonobstructing calculus in the lower pole of the left kidney (series 5, image 33). No hydronephrosis. Peritoneal Cavity/Bowel: No evidence of bowel obstruction or inflammation. Appendix is within normal limits. Pelvic Organs: Urinary bladder is unremarkable. Uterus and adnexal structures are unremarkable in CT appearance. No pelvic adenopathy or free fluid. Vasculature: No abdominal aortic aneurysm. Portal veins are patent. Bones: No suspicious osseous lesion. Other: No retroperitoneal adenopathy. In the superior aspect of the right breast, there is a 15 mm ovoid nodule (series 3, image 2). IMPRESSION: 1. Findings compatible with acute interstitial edematous pancreatitis. No evidence for pancreatic necrosis or fluid collection. 2. Severe hepatic steatosis. 3. Non-obstructing left nephrolithiasis. 4. Small, well-circumscribed nodule in the superior aspect of the right breast is indeterminate. Although potentially representing a benign lesion, such as fibroadenoma, breast findings are not well assessed by CT. Suggest correlation with any previous mammogram. [facility]
[2020-01-19] MEDS ORDERED: MORPHINE 2 MG/ML CARPUJECT IVP PRN (14:04)
--- NOTE | 2020-01-19 14:08 | HISTORY & PHYSICAL EXAMINATION ---
Chief Complaint - Chief Complaint Chief Complaint: Abdominal pain History of Present Illness - Admitted From Admitted From:: Home - History Obtained From Records Reviewed: Yes History obtained from: Patient, ER Physician, EMR - History of Present Illness HPI Comment/Other: This is a 44-year-old female with a past medical history significant for hype rtension depression who presents today complaining of abdominal pain. She states that she has been drinking alcohol on a daily basis since July. She is drinking a bottle of whiskey each day and she has been trying to quit at times but would get tremors and so she would continue to drink. She began drinking in July due to stress at work and at home. Reports that yesterday she developed abdominal pain that became more severe overnight. She had episodes of nausea and vomiting yesterday. She reports no blood when she did vomit. She states she had a poor appetite and has been able to keep nothing down. She tried to drink alcohol this morning but she continued to vomit. Reports that pain is 10 out of 10 located in the epigastric area. Denies any fevers, chills, chest pain, dyspnea. Currently does not take any medications. She denies any current drug use and reports quitting meth over 5 years ago. In the emergency department, she is on be afebrile temperature of 36.9 C. She was tachycardic with a heart rate of 119. Hypertensive the blood pressure of 140/118. She was tachypneic and saturating well on room air. Labs showed a white count of 11.2 and hemoglobin of 16.6. Her BMP showed her bicarbonate was 8 and an anion gap of 33. Her AST and ALT were elevated. Lipase is also elevated at 740. Urinalysis showed greater than 80 ketones and a specific gravity of 1.03. CT of the abdomen and pelvis showed findings compatible with pancreatitis. Given these findings, medicine was consulted for admission. 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 Her grandmother on her father's side had a myocardial infarction. Her mother suffered from alcoholism and had melanoma. Living arrangement: At home Living Situation: With family Social History Notes: She reports she lives at home with her 4 children. Her ages range from 5-25. 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 She was most recently at [employer] but was previously at [email or web address]. Report smoking a pack a day for the past 20 years. She has been drinking a bottle of whiskey on a daily basis since July. She reports having signs of withdrawal but she would like to quit. 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 She denies any history of injection. - POLST Patient has POLST: No Meds/Allgy - Home Medications Home Medications: Ambulatory Orders Medication Instructions Recorded Confirmed No Known Home Medications 01/19/20 01/19/20 - Allergies Allergies/Adverse Reactions: Allergies Allergy/AdvReac Type Severity Reaction Status Date / Time No Known Drug Allergies Allergy Verified 01/19/20 10:21 Review of Systems - Constitutional Constitutional: reports: Weakness, Poor appetite. denies: Fever, Chills - Ears, Nose & Throat Ears, Nose & Throat: denies: Nasal congestion, Sore throat - Cardiovascular Cariovascular: denies: Chest pain, Exertional dyspnea, Decr. exercise tolerance - Respiratory Respiratory: denies: SOB at rest, SOB with exertion - Gastrointestinal Gastrointestinal: reports: Abdominal pain, Constipation, Nausea, Vomiting, Reflux/heartburn, Poor appetite. denies: Diarrhea, Rectal bleeding, Hemanth blood emesis - Genitourinary Genitourinary: denies: Dysuria, Frequency, Urgency - Integumentary Integumentary: reports: Pigment changes. denies: Rash - Neurological Neurological: reports: General weakness. denies: Focal weakness - Psychiatric Psychiatric: reports: Depression - All Other Systems All Other Systems: reports: Reviewed and negative Prior Level of Functionality: She is independent with her ADL's. Exam - Vital Signs Vital Signs: Vital Signs x48h Temp Pulse Resp BP Pulse Ox 01/19/20 13:33 117 H 16 154/110 H 98 01/19/20 12:10 110 H 16 122/98 H 95 01/19/20 10:16 36.9 C 119 H 22 140/118 H 99 - Physical Exam General Appearance: positive: Alert, Moderate distress Eyes Bilateral: positive: Normal inspection ENT: positive: ENT inspection nml Neck: positive: Nml inspection Respiratory: positive: No respiratory distress, Other (Tachypnic.). negative: Wheezes, Rales, Rhonchi Cardiovascular: positive: No murmur, Tachycardia. negative: Irregularly irregular, Systolic murmur, Diastolic murmur Abdomen: positive: No distention, Tenderness (Epigastric.). negative: Guarding, Rebound Skin: positive: Warm, Dry Extremities: positive: Full ROM, No pedal edema Neurologic/Psychiatric: positive: Oriented x3, Motor nml. negative: Disoriented to person, Disoriented to place, Disoriented to time Conclusion/Plan - Problem List (1) Alcoholic pancreatitis Conclusion/Plan: Her CT scan findings are consistent with pancreatitis and her lipase is elevated. This is secondary to her alcohol abuse. We will keep her n.p.o. except for sips of clears as tolerated. We will give her a liter of lactated Ringer's now and start her on maintenance fluids with D5 half-normal given her alcoholic ketoacidosis. Trend her lipase. We will advance her diet as she tolerates. Morphine IV as needed for pain control. Zofran IV as needed for nausea. We discussed the importance of alcohol cessation. I do not believe she is a right upper quadrant ultrasound at this time as her pancreatitis is likely due to alcohol and I doubt gallstones. Her LFTs likely elevated due to her alcohol abuse. Qualifiers: Chronicity: acute (2) Alcoholic ketoacidosis Conclusion/Plan: Bicarbonate is decreased at 8 and her anion gap is elevated at 33. Her urine reveals ketones. This is likely due to alcoholic/starvation ketoacidosis. We will start her on D5 half-normal saline at 150 mL an hour. Check serum ketones. Will check lactic acid given the elevated anion gap. (3) Alcohol abuse Conclusion/Plan: She has been drinking on a daily basis since July. We will monitor her for signs of withdrawal. Start her on thiamine and folate. Social work consult to discuss alcohol cessation as the patient is interested. (4) Transaminitis Conclusion/Plan: Her LFTs are elevated with AST greater than ALT. This likely secondary to her alcohol abuse. CT showed a fatty liver. We will trend her LFTs. (5) Breast mass, right Conclusion/Plan: This was incidental finding on CT of the abdomen pelvis. This was discussed with the patient. She will need an outpatient mammogram. (6) Depression Conclusion/Plan: She reports feeling depressed and stressed at home and says that her to turn to alcohol. Will consider an SSRI/SNRI on discharge. - Lab Results Lab results reviewed: Yes Aroldo Bones: 01/19/20 10:32 01/19/20 10:32 - Diagnostic Imaging Results Diagnostic Imaging Results: positive: Final report reviewed Core Measures - Anticipated LOS I expect patient to be DC'd or transferred within 96 hours.: Yes - Issues Hospital Issues and Management Plan: 44-year-old female with alcoholic pancreatitis and alcoholic ketoacidosis. She will be admitted for IV fluids and pain control. - DVT/VTE - Prophylaxis VTE/DVT Device ordered at admit?: Yes VTE/DVT Prophylaxis med ordered at admit?: Yes
--- NOTE | 2020-01-19 15:01 | PHARMACY PROGRESS NOTE ---
- Best Possible Medication History Admit Date and Time: 01/19/20 1404 Processed by: Pharmacy Medication History completed: Yes Secondary Source(s): Physician records, Pharmacy records, Insurance records As the person ultimately responsible for medication therapy, providers are able to order a medication from an existing home medication list in [facility] via the "Reconcile Routine" prior to Confirmation of that medication by client support representative. Such practice is discouraged except when the physician, in their clinical judgment, deems that a medical need exists for a medication without regard to previous use.
[2020-01-19] MEDS ORDERED: LACTATED RINGERS 1,000 ML IV ONE (15:12)
[2020-01-19] MEDS ORDERED: MORPHINE 4 MG/ML VIAL IVP PRN (15:19)
[2020-01-19] MEDS ORDERED: THIAMINE INJ 100 MG in SODIUM CHLORIDE 0.9% 50 ML IV ONE (15:20)
[2020-01-19] MEDS: SODIUM CHLORIDE FLUSH 0.9% 10 ML SYRINGE IVP SCH ×2 (15:35→23:52)
[2020-01-19 15:49] LABS: KETONES, SERUM (ACETEST) SMALL (NEGATIVE)
[2020-01-19 15:56] LABS: PHOSPHORUS 4.3 mg/dL (2.5-4.6)
[2020-01-19] MEDS ORDERED: LACTATED RINGERS 1,000 ML IV SCH (16:00)
[2020-01-19] MEDS: NICOTINE 14 MG PATCH TOP SCH (17:33)
[2020-01-19] MEDS: HYDROmorphone 1 MG/ML CARPUJECT IVP PRN ×3 (17:39→23:42)
[2020-01-19] MEDS: DEXTROSE 5%-0.45% NACL 1,000 ML IV SCH ×2 (17:45→23:51)
[2020-01-19] MEDS: ONDANSETRON 4 MG/2 ML VIAL IVP PRN (18:20)
[2020-01-19] MEDS: SODIUM CHLORIDE FLUSH 0.9% 10 ML SYRINGE IVP PRN ×2 (19:50→21:04)
[2020-01-19 20:19] LABS: CALCIUM 8.3 mg/dL (8.5-10.3); CREATININE 0.7 mg/dL (0.4-1.0)
[2020-01-19] MEDS: PROCHLORPERAZINE 10 MG/2 ML VIAL IVP PRN (21:02)
[2020-01-20] MEDS: HYDROmorphone 1 MG/ML CARPUJECT IVP PRN ×10 (01:47→22:33)
[2020-01-20] MEDS: ONDANSETRON 4 MG/2 ML VIAL IVP PRN ×3 (05:17→22:33)
[2020-01-20] MEDS: DEXTROSE 5%-0.45% NACL 1,000 ML IV SCH ×2 (05:39→13:07)
[2020-01-20 06:21] LABS: BASOPHILS % (AUTO) 0.5 %; EOSINOPHILS % (AUTO) 0.5 %; HGB - HEMOGLOBIN 12.9 g/dL (12.0-16.0); LYMPHOCYTES # (AUTO) 1.4 10^3/uL (1.5-3.5); MEAN CORPUSCULAR HEMOGLOBIN 32.3 pg (27.0-31.0); MEAN CORPUSCULAR VOLUME 94.8 fL (81.0-99.0); MEAN PLATELET VOLUME 9.2 fL (7.9-10.8); MONOCYTES # (AUTO) 0.6 10^3/uL (0.0-1.0); MONOCYTES % (AUTO) 6.8 %; NEUTROPHILS # (AUTO) 6.3 10^3/uL (1.5-6.6); NEUTROPHILS % (AUTO) 74.8 %; PLT - PLATELET COUNT 246 10^3/uL (130-450); WHITE BLOOD COUNT 8.4 x10^3/uL (4.8-10.8)
[2020-01-20 06:44] LABS: ALBUMIN 3.4 g/dL (3.2-5.5); BILIRUBIN,DIRECT 0.2 mg/dL (0.1-0.5); BILIRUBIN,TOTAL 0.9 mg/dL (0.2-1.0); CALCIUM 8.5 mg/dL (8.5-10.3); CREATININE 0.5 mg/dL (0.4-1.0); PHOSPHORUS 1.4 mg/dL (2.5-4.6); TOTAL PROTEIN 6.1 g/dL (6.7-8.2)
[2020-01-20] MEDS ORDERED: POTASSIUM CHLORIDE 20 MEQ TABLET PO ONE (07:34)
[2020-01-20] MEDS ORDERED: POTASSIUM PHOSPHATE 21 MMOL in SODIUM CHLORIDE 0.9% 250 ML IV ONE (08:00)
[2020-01-20] MEDS ORDERED: POTASSIUM CHLOR 10 MEQ/100 ML 10 MEQ/100 ML BAG IV SCH (08:00)
[2020-01-20] MEDS: NICOTINE 14 MG PATCH TOP SCH (08:02)
[2020-01-20] MEDS: ENOXAPARIN 40 MG/0.4 ML SYRINGE SUBQ SCH (08:02)
[2020-01-20] MEDS ORDERED: MULTIVITAMIN 10 ML, THIAMINE INJ 100 MG, FOLIC ACID INJ 1 MG in D5.45NS W/20 MEQ KCL 1,... IV SCH (09:00)
--- NOTE | 2020-01-20 09:29 | PROVIDER PROGRESS NOTE ---
Subjective - Prog Note Date Prog Note Date: 01/20/20 - Subjective Subjective: She reported abdominal pain has significantly improved but is still present. She did have some nausea and vomiting this morning. She would like to try some clears. Current Medications - Current Medications Current Medications: Active Medications Enoxaparin Sodium (Lovenox) 40 mg SUBQ DAILY [facility] Last Admin: 01/20/20 08:02 Dose: 40 mg Hydromorphone HCl (Dilaudid Inj Carp) 1 mg IVP Q2HR PRN PRN Reason: PAIN Last Admin: 01/20/20 09:18 Dose: 1 mg Dextrose/Sodium Chloride (D5.45ns) 1,000 mls @ 150 mls/hr IV .Q6H40M [facility] Last Admin: 01/20/20 05:39 Dose: 150 mls/hr Potassium Phosphate 21 mmol/ (Sodium Chloride) 257 mls @ 42.833 mls/hr IV ONCE ONE Stop: 01/20/20 13:59 Last Admin: 01/20/20 09:26 Dose: 42.833 mls/hr Multivitamins 10 ml/ Thiamine HCl 100 mg/ Folic Acid 1 mg/Sodium Chloride 1,011 .2 mls @ 200 mls/hr IV DAILY [facility] Last Admin: 01/20/20 09:41 Dose: 200 mls/hr Nicotine (Nicoderm) 1 patch TOP DAILY [facility] Last Admin: 01/20/20 08:02 Dose: 1 patch Ondansetron HCl (Zofran Inj) 4 mg IVP Q6HR PRN PRN Reason: Nausea / Vomiting Last Admin: 01/20/20 05:17 Dose: 4 mg Prochlorperazine Edisylate (Compazine Inj) 10 mg IVP Q6HR PRN PRN Reason: Nausea / Vomiting Last Admin: 01/19/20 21:02 Dose: 10 mg Sodium Chloride (Normal Saline Flush 0.9%) 10 ml IVP PRN PRN PRN Reason: NEEDED PER PROVIDER ORDERS Last Admin: 01/19/20 21:04 Dose: 10 ml Sodium Chloride (Normal Saline Flush 0.9%) 10 ml IVP 0100,0900,1700 [facility] Last Admin: 01/20/20 09:41 Dose: 10 ml No Known Home Medications 01/19/20 Objective - Vital Signs/Intake & Output Reviewed Vital Signs: Yes Vital Signs: Vital Signs x48h Temp Pulse Resp BP Pulse Ox 01/20/20 07:50 36.8 C 106 H 16 118/82 H 94 01/20/20 05:00 36.7 C 108 H 16 129/84 H 94 Intake & Output: Intake & Output 01/17/20 01/18/20 01/19/20 01/20/20 23:59 23:59 23:59 23:59 Intake Total 2981.2 870 Output Total 650 Balance 2331.2 870 - Objective General Appearance: positive: Alert, Mild distress Eyes Bilateral: positive: Normal inspection, Conjunctivae nml ENT: positive: ENT inspection nml Neck: positive: Nml inspection Respiratory: positive: No respiratory distress. negative: Wheezes, Rales Cardiovascular: positive: No murmur, Tachycardia. negative: Bradycardia, Systolic murmur Abdomen: positive: Nml bowel sounds, Tenderness (There is now only mild tenderness in the epigastric region.). negative: Non-tender, Guarding, Rebound Skin: positive: Warm, Dry. negative: Diaphoresis Extremities: positive: No pedal edema Neurologic/Psychiatric: positive: Oriented x3, Motor nml. negative: Disoriented to person, Disoriented to time - Lab Results Fish Bones: 01/20/20 05:49 01/20/20 14:58 Other Labs: Lab Results x24hrs 01/20/20 01/20/20 01/19/20 Range/Units 05:49 05:49 20:05 WBC 8.4 (4.8-10.8) x10^3/uL RBC 4.00 L (4.20-5.40) 10^6/uL Hgb 12.9 (12.0-16.0) g/dL Hct 37.9 (37.0-47.0) % MCV 94.8 (81.0-99.0) fL MCH 32.3 H (27.0-31.0) pg MCHC 34.0 (32.0-36.0) g/dL RDW 15.0 (12.0-15.0) % Plt Count 246 (130-450) 10^3/uL MPV 9.2 (7.9-10.8) fL Neut # (Auto) 6.3 (1.5-6.6) 10^3/uL Lymph # (Auto) 1.4 L (1.5-3.5) 10^3/uL [place] # (Auto) 0.6 (0.0-1.0) 10^3/uL Eos # (Auto) 0.0 (0.0-0.7) 10^3/uL Baso # (Auto) 0.0 (0.0-0.1) 10^3/uL Absolute Nucleated RBC 0.00 x10^3/uL Nucleated RBC % 0.0 /100WBC Sodium 129 L (135-145) mmol/L Potassium 3.3 L (3.5-5.0) mmol/L Chloride 97 L (101-111) mmol/L Carbon Dioxide 25 (21-32) mmol/L Anion Gap 7.0 (6-13) BUN 14 (6-20) mg/dL Creatinine 0.5 (0.4-1.0) mg/dL Estimated GFR (MDRD) 135 (>89) Glucose 182 H (70-100) mg/dL Lactic Acid 1.6 (0.5-2.2) mmol/L Calcium 8.5 (8.5-10.3) mg/dL Phosphorus 1.4 L (2.5-4.6) mg/dL Magnesium 2.0 (1.7-2.8) mg/dL Total Bilirubin 0.9 (0.2-1.0) mg/dL Direct Bilirubin 0.2 (0.1-0.5) mg/dL AST 45 H (10-42) IU/L ALT 39 (10-60) IU/L Alkaline Phosphatase 81 (42-121) IU/L Total Protein 6.1 L (6.7-8.2) g/dL Albumin 3.4 (3.2-5.5) g/dL Globulin 2.7 (2.1-4.2) g/dL Albumin/Globulin Ratio (1.0-2.2) Amylase 151 H (28-100) U/L Lipase 820 H (22-51) U/L Urine Color Urine Clarity (CLEAR) Urine pH (5.0-7.5) PH Ur Specific Geraldine (1.002-1.030) Urine Protein (NEGATIVE) mg/dL Urine Glucose (UA) (NEGATIVE) mg/dL Urine Ketones (NEGATIVE) mg/dL Urine Occult Blood (NEGATIVE) Urine Nitrite (NEGATIVE) Urine Bilirubin (NEGATIVE) Urine Urobilinogen (NORMAL) E.U./dL Ur Leukocyte Esterase (NEGATIVE) Urine RBC (0-5) /HPF Urine WBC (0-5) /HPF Ur Squamous Epith Cells (<= Few) Urine Bacteria (None Seen) /HPF Ur Microscopic Review Urine Culture Comments Urine HCG, Qual Ethyl Alcohol mg/dL Serum Ketones (NEGATIVE) 01/19/20 01/19/20 01/19/20 Range/Units 20:05 15:30 15:30 WBC (4.8-10.8) x10^3/uL RBC (4.20-5.40) 10^6/uL Hgb (12.0-16.0) g/dL Hct (37.0-47.0) % MCV (81.0-99.0) fL MCH (27.0-31.0) pg MCHC (32.0-36.0) g/dL RDW (12.0-15.0) % Plt Count (130-450) 10^3/uL MPV (7.9-10.8) fL Neut # (Auto) (1.5-6.6) 10^3/uL Lymph # (Auto) (1.5-3.5) 10^3/uL [place] # (Auto) (0.0-1.0) 10^3/uL Eos # (Auto) (0.0-0.7) 10^3/uL Baso # (Auto) (0.0-0.1) 10^3/uL Absolute Nucleated RBC x10^3/uL Nucleated RBC % /100WBC Sodium 131 L (135-145) mmol/L Potassium 4.1 (3.5-5.0) mmol/L Chloride 99 L (101-111) mmol/L Carbon Dioxide 14 L (21-32) mmol/L Anion Gap 18.0 H (6-13) BUN 15 (6-20) mg/dL Creatinine 0.7 (0.4-1.0) mg/dL Estimated GFR (MDRD) 92 (>89) Glucose 190 H (70-100) mg/dL Lactic Acid 4.2 H* (0.5-2.2) mmol/L Calcium 8.3 L (8.5-10.3) mg/dL Phosphorus 4.3 (2.5-4.6) mg/dL Magnesium 3.0 H (1.7-2.8) mg/dL Total Bilirubin (0.2-1.0) mg/dL Direct Bilirubin (0.1-0.5) mg/dL AST (10-42) IU/L ALT (10-60) IU/L Alkaline Phosphatase (42-121) IU/L Total Protein (6.7-8.2) g/dL Albumin (3.2-5.5) g/dL Globulin (2.1-4.2) g/dL Albumin/Globulin Ratio (1.0-2.2) Amylase (28-100) U/L Lipase (22-51) U/L Urine Color Urine Clarity (CLEAR) Urine pH (5.0-7.5) PH Ur Specific Geraldine (1.002-1.030) Urine Protein (NEGATIVE) mg/dL Urine Glucose (UA) (NEGATIVE) mg/dL Urine Ketones (NEGATIVE) mg/dL Urine Occult Blood (NEGATIVE) Urine Nitrite (NEGATIVE) Urine Bilirubin (NEGATIVE) Urine Urobilinogen (NORMAL) E.U./dL Ur Leukocyte Esterase (NEGATIVE) Urine RBC (0-5) /HPF Urine WBC (0-5) /HPF Ur Squamous Epith Cells (<= Few) Urine Bacteria (None Seen) /HPF Ur Microscopic Review Urine Culture Comments Urine HCG, Qual Ethyl Alcohol mg/dL Serum Ketones SMALL H (NEGATIVE) 01/19/20 01/19/20 01/19/20 Range/Units 11:40 11:40 10:32 WBC (4.8-10.8) x10^3/uL RBC (4.20-5.40) 10^6/uL Hgb (12.0-16.0) g/dL Hct (37.0-47.0) % MCV (81.0-99.0) fL MCH (27.0-31.0) pg MCHC (32.0-36.0) g/dL RDW (12.0-15.0) % Plt Count (130-450) 10^3/uL MPV (7.9-10.8) fL Neut # (Auto) (1.5-6.6) 10^3/uL Lymph # (Auto) (1.5-3.5) 10^3/uL [place] # (Auto) (0.0-1.0) 10^3/uL Eos # (Auto) (0.0-0.7) 10^3/uL Baso # (Auto) (0.0-0.1) 10^3/uL Absolute Nucleated RBC x10^3/uL Nucleated RBC % /100WBC Sodium 138 (135-145) mmol/L Potassium 3.7 (3.5-5.0) mmol/L Chloride 97 L (101-111) mmol/L Carbon Dioxide 8 L* (21-32) mmol/L Anion Gap 33.0 H (6-13) BUN 19 (6-20) mg/dL Creatinine 0.9 (0.4-1.0) mg/dL Estimated GFR (MDRD) 69 L (>89) Glucose 80 (70-100) mg/dL Lactic Acid (0.5-2.2) mmol/L Calcium 9.8 (8.5-10.3) mg/dL Phosphorus (2.5-4.6) mg/dL Magnesium (1.7-2.8) mg/dL Total Bilirubin 1.1 H (0.2-1.0) mg/dL Direct Bilirubin (0.1-0.5) mg/dL AST 103 H (10-42) IU/L ALT 66 H (10-60) IU/L Alkaline Phosphatase 123 H (42-121) IU/L Total Protein 8.9 H (6.7-8.2) g/dL Albumin 5.0 (3.2-5.5) g/dL Globulin 3.9 (2.1-4.2) g/dL Albumin/Globulin Ratio 1.3 (1.0-2.2) Amylase (28-100) U/L Lipase 740 H (22-51) U/L Urine Color YELLOW Urine Clarity CLEAR (CLEAR) Urine pH 6.0 (5.0-7.5) PH Ur Specific Geraldine >=1.030 H >=1.030 H (1.002-1.030) Urine Protein 100 H (NEGATIVE) mg/dL Urine Glucose (UA) NEGATIVE (NEGATIVE) mg/dL Urine Ketones >=80 H (NEGATIVE) mg/dL Urine Occult Blood MODERATE H (NEGATIVE) Urine Nitrite NEGATIVE (NEGATIVE) Urine Bilirubin NEGATIVE (NEGATIVE) Urine Urobilinogen 0.2 (NORMAL) (NORMAL) E.U./dL Ur Leukocyte Esterase NEGATIVE (NEGATIVE) Urine RBC 0-5 (0-5) /HPF Urine WBC 0-3 (0-5) /HPF Ur Squamous Epith Cells FEW Squamous (<= Few) Urine Bacteria Few (None Seen) /HPF Ur Microscopic Review INDICATED Urine Culture Comments NOT INDICATED Urine HCG, Qual NEGATIVE Ethyl Alcohol 90.1 mg/dL Serum Ketones (NEGATIVE) 01/19/20 Range/Units 10:32 WBC 11.2 H (4.8-10.8) x10^3/uL RBC 4.87 (4.20-5.40) 10^6/uL Hgb 16.6 H (12.0-16.0) g/dL Hct 48.4 H (37.0-47.0) % MCV 99.4 H (81.0-99.0) fL MCH 34.1 H (27.0-31.0) pg MCHC 34.3 (32.0-36.0) g/dL RDW 15.5 H (12.0-15.0) % Plt Count 324 (130-450) 10^3/uL MPV 9.1 (7.9-10.8) fL Neut # (Auto) 8.5 H (1.5-6.6) 10^3/uL Lymph # (Auto) 1.4 L (1.5-3.5) 10^3/uL [place] # (Auto) 0.9 (0.0-1.0) 10^3/uL Eos # (Auto) 0.1 (0.0-0.7) 10^3/uL Baso # (Auto) 0.1 (0.0-0.1) 10^3/uL Absolute Nucleated RBC 0.00 x10^3/uL Nucleated RBC % 0.0 /100WBC Sodium (135-145) mmol/L Potassium (3.5-5.0) mmol/L Chloride (101-111) mmol/L Carbon Dioxide (21-32) mmol/L Anion Gap (6-13) BUN (6-20) mg/dL Creatinine (0.4-1.0) mg/dL Estimated GFR (MDRD) (>89) Glucose (70-100) mg/dL Lactic Acid (0.5-2.2) mmol/L Calcium (8.5-10.3) mg/dL Phosphorus (2.5-4.6) mg/dL Magnesium (1.7-2.8) mg/dL Total Bilirubin (0.2-1.0) mg/dL Direct Bilirubin (0.1-0.5) mg/dL AST (10-42) IU/L ALT (10-60) IU/L Alkaline Phosphatase (42-121) IU/L Total Protein (6.7-8.2) g/dL Albumin (3.2-5.5) g/dL Globulin (2.1-4.2) g/dL Albumin/Globulin Ratio (1.0-2.2) Amylase (28-100) U/L Lipase (22-51) U/L Urine Color Urine Clarity (CLEAR) Urine pH (5.0-7.5) PH Ur Specific Geraldine (1.002-1.030) Urine Protein (NEGATIVE) mg/dL Urine Glucose (UA) (NEGATIVE) mg/dL Urine Ketones (NEGATIVE) mg/dL Urine Occult Blood (NEGATIVE) Urine Nitrite (NEGATIVE) Urine Bilirubin (NEGATIVE) Urine Urobilinogen (NORMAL) E.U./dL Ur Leukocyte Esterase (NEGATIVE) Urine RBC (0-5) /HPF Urine WBC (0-5) /HPF Ur Squamous Epith Cells (<= Few) Urine Bacteria (None Seen) /HPF Ur Microscopic Review Urine Culture Comments Urine HCG, Qual Ethyl Alcohol mg/dL Serum Ketones (NEGATIVE) ABX Reporting Has patient been on IV antibiotics over the past 48 hours?: No Assessment/Plan - Problem List (1) Alcoholic pancreatitis Impression: This is secondary to her alcohol abuse. Clinically, her abdominal pain has improved but her lipase is elevated this morning compared to admission. We will continue her on IV normal saline. Given her pain has improved and she will try clears, will start her on a clear liquid diet as tolerated. Continue with Dilaudid and Zofran IV as needed. We will recheck a lipase and amylase in the morning. Qualifiers: Chronicity: acute (2) Alcohol abuse Impression: She had been drinking daily since July and is at high risk for withdrawal. We will continue her on a banana bag. We will start her on CIWA protocol and monitor for signs of withdrawal. If there is any evidence, we will start her on Librium and Ativan as needed. (3) Hypokalemia Impression: We will replace intravenously and continue to monitor. (4) Breast mass, right Impression: This was evident on CT of the abdomen pelvis and she will need an outpatient mammogram. This was discussed with the patient. (5) Depression Impression: She reports feeling depressed and stressed at home. She had considered antidepressants in the past. Will discuss further with her as her pancreatitis improves and will consider discharging her on an SSRI or SNRI. Social work has been consulted given her stressful home and work situation. (6) Alcoholic ketoacidosis Impression: This has resolved. Her anion gap is closed and her bicarbonate is now within normal limits. (7) Transaminitis Impression: This was likely secondary to her alcohol use and has resolved.
[2020-01-20] MEDS: SODIUM CHLORIDE FLUSH 0.9% 10 ML SYRINGE IVP SCH ×2 (09:41→16:10)
[2020-01-20] MEDS: MULTIVITAMIN 10 ML, THIAMINE INJ 100 MG, FOLIC ACID INJ 1 MG in SODIUM CHLORIDE 0.9% 1,... IV SCH (09:41)
[2020-01-20 15:16] LABS: CALCIUM 8.1 mg/dL (8.5-10.3); CREATININE 0.5 mg/dL (0.4-1.0); PHOSPHORUS 2.2 mg/dL (2.5-4.6)
[2020-01-20] MEDS: SODIUM CHLORIDE 0.9% 1,000 ML IV SCH (17:49)
[2020-01-20] MEDS: SODIUM CHLORIDE FLUSH 0.9% 10 ML SYRINGE IVP PRN (17:49)
[2020-01-21] MEDS: hydrOXYzine PAMOATE 25 MG CAPSULE PO PRN ×2 (00:02→22:15)
[2020-01-21] MEDS: SODIUM CHLORIDE 0.9% 1,000 ML IV SCH ×2 (00:03→05:51)
[2020-01-21] MEDS: SODIUM CHLORIDE FLUSH 0.9% 10 ML SYRINGE IVP SCH ×4 (00:03→23:32)
[2020-01-21] MEDS: PROCHLORPERAZINE 10 MG/2 ML VIAL IVP PRN (00:09)
[2020-01-21] MEDS: HYDROmorphone 1 MG/ML CARPUJECT IVP PRN ×8 (00:14→23:32)
[2020-01-21 05:26] LABS: BASOPHILS # (AUTO) 0.1 10^3/uL (0.0-0.1); EOSINOPHILS # (AUTO) 0.2 10^3/uL (0.0-0.7); EOSINOPHILS % (AUTO) 3.8 %; HGB - HEMOGLOBIN 10.6 g/dL (12.0-16.0); LYMPHOCYTES # (AUTO) 1.4 10^3/uL (1.5-3.5); LYMPHOCYTES % (AUTO) 23.9 %; MEAN CORPUSCULAR HEMOGLOBIN 33.2 pg (27.0-31.0); MEAN CORPUSCULAR VOLUME 97.8 fL (81.0-99.0); MEAN PLATELET VOLUME 9.1 fL (7.9-10.8); MONOCYTES # (AUTO) 0.5 10^3/uL (0.0-1.0); NEUTROPHILS # (AUTO) 3.8 10^3/uL (1.5-6.6); NEUTROPHILS % (AUTO) 63.1 %; PLT - PLATELET COUNT 186 10^3/uL (130-450); RED BLOOD COUNT 3.19 10^6/uL (4.20-5.40); RED CELL DISTRIBUTION WIDTH 15.5 % (12.0-15.0)
[2020-01-21 05:40] LABS: ALBUMIN 2.9 g/dL (3.2-5.5); BILIRUBIN,DIRECT 0.2 mg/dL (0.1-0.5); BILIRUBIN,TOTAL 0.6 mg/dL (0.2-1.0); CALCIUM 8.1 mg/dL (8.5-10.3); CREATININE 0.4 mg/dL (0.4-1.0); MAGNESIUM 1.7 mg/dL (1.7-2.8); PHOSPHORUS 1.8 mg/dL (2.5-4.6); TOTAL PROTEIN 5.3 g/dL (6.7-8.2)
[2020-01-21] MEDS ORDERED: POTASSIUM CHLORIDE 20 MEQ TABLET PO ONE (07:28)
[2020-01-21] MEDS ORDERED: NEUTRA-PHOS 250 MG TABLET PO ONE (08:00)
[2020-01-21] MEDS: NICOTINE 14 MG PATCH TOP SCH (08:00)
[2020-01-21] MEDS: ENOXAPARIN 40 MG/0.4 ML SYRINGE SUBQ SCH (08:02)
[2020-01-21] MEDS: oxyCODONE 5 MG TABLET PO PRN ×4 (08:08→21:32)
[2020-01-21] MEDS: ONDANSETRON 4 MG/2 ML VIAL IVP PRN (08:09)
[2020-01-21] MEDS: SODIUM CHLORIDE FLUSH 0.9% 10 ML SYRINGE IVP PRN ×3 (08:13→19:30)
[2020-01-21] MEDS: MULTIVITAMIN 10 ML, THIAMINE INJ 100 MG, FOLIC ACID INJ 1 MG in SODIUM CHLORIDE 0.9% 1,... IV SCH (09:14)
--- NOTE | 2020-01-21 13:25 | PROVIDER PROGRESS NOTE ---
Subjective - Prog Note Date Prog Note Date: 01/21/20 - Subjective Subjective: She reports her abdominal pain has improved but is still present. She did tolerate a soft diet for lunch but continues to have epigastric pain that is 7 out of 10. She also has nausea but no vomiting. She has required IV Dilaudid although the frequency has decreased. Current Medications - Current Medications Current Medications: Active Medications Enoxaparin Sodium (Lovenox) 40 mg SUBQ DAILY [facility] Last Admin: 01/21/20 08:02 Dose: 40 mg Hydromorphone HCl (Dilaudid Inj Carp) 1 mg IVP Q4HR PRN PRN Reason: PAIN Last Admin: 01/21/20 11:06 Dose: 1 mg Hydroxyzine Pamoate (Vistaril) 50 mg PO QPM PRN PRN Reason: Insomnia Last Admin: 01/21/20 00:02 Dose: 50 mg Multivitamins 10 ml/ Thiamine HCl 100 mg/ Folic Acid 1 mg/Sodium Chloride 1,011.2 mls @ 200 mls/hr IV DAILY [facility] Last Admin: 01/21/20 09:14 Dose: 200 mls/hr Nicotine (Nicoderm) 1 patch TOP DAILY [facility] Last Admin: 01/21/20 08:00 Dose: 1 patch Ondansetron HCl (Zofran Inj) 4 mg IVP Q6HR PRN PRN Reason: Nausea / Vomiting Last Admin: 01/21/20 08:09 Dose: 4 mg Oxycodone HCl (Roxicodone) 5 mg PO Q4HR PRN PRN Reason: PAIN Last Admin: 01/21/20 13:15 Dose: 5 mg Prochlorperazine Edisylate (Compazine Inj) 10 mg IVP Q6HR PRN PRN Reason: Nausea / Vomiting Last Admin: 01/21/20 00:09 Dose: 10 mg Sodium Chloride (Normal Saline Flush 0.9%) 10 ml IVP PRN PRN PRN Reason: NEEDED PER PROVIDER ORDERS Last Admin: 01/21/20 09:17 Dose: 10 ml Sodium Chloride (Normal Saline Flush 0.9%) 10 ml IVP 0100,0900,1700 [facility] Last Admin: 01/21/20 08:08 Dose: 10 ml No Known Home Medications 01/19/20 Objective - Vital Signs/Intake & Output Reviewed Vital Signs: Yes Vital Signs: Vital Signs x48h Temp Pulse Resp BP Pulse Ox 01/21/20 08:14 36.9 C 92 16 103/80 94 01/21/20 05:48 36.8 C 94 18 121/77 93 Intake & Output: Intake & Output 01/18/20 01/19/20 01/20/20 01/21/20 23:59 23:59 23:59 23:59 Intake Total 2981.2 5933.1 3132.5 Output Total 650 Balance 2331.2 5933.1 3132.5 - Objective General Appearance: positive: No acute distress, Alert Eyes Bilateral: positive: Normal inspection ENT: positive: ENT inspection nml Neck: positive: Nml inspection Respiratory: positive: No respiratory distress. negative: Wheezes, Rales Cardiovascular: positive: No murmur, Tachycardia. negative: Systolic murmur Abdomen: positive: Nml bowel sounds, No distention, Tenderness (Mild tenderness in the epigastric region on deep palpation. Improved since admission.). negative: Non-tender, Guarding, Rebound Skin: positive: No rash, Warm, Dry Extremities: positive: Full ROM, No pedal edema Neurologic/Psychiatric: positive: Oriented x3, Motor nml. negative: Disoriented to person, Disoriented to place, Disoriented to time - Lab Results Fish Bones: 01/21/20 05:07 01/21/20 05:07 Other Labs: Lab Results x24hrs 01/21/20 01/21/20 01/20/20 Range/Units 05:07 05:07 14:58 WBC 6.0 (4.8-10.8) x10^3/uL RBC 3.19 L (4.20-5.40) 10^6/uL Hgb 10.6 L (12.0-16.0) g/dL Hct 31.2 L (37.0-47.0) % MCV 97.8 (81.0-99.0) fL MCH 33.2 H (27.0-31.0) pg MCHC 34.0 (32.0-36.0) g/dL RDW 15.5 H (12.0-15.0) % Plt Count 186 (130-450) 10^3/uL MPV 9.1 (7.9-10.8) fL Neut # (Auto) 3.8 (1.5-6.6) 10^3/uL Lymph # (Auto) 1.4 L (1.5-3.5) 10^3/uL [place] # (Auto) 0.5 (0.0-1.0) 10^3/uL Eos # (Auto) 0.2 (0.0-0.7) 10^3/uL Baso # (Auto) 0.1 (0.0-0.1) 10^3/uL Absolute Nucleated RBC 0.00 x10^3/uL Nucleated RBC % 0.0 /100WBC Sodium 136 131 L (135-145) mmol/L Potassium 3.1 L 3.7 (3.5-5.0) mmol/L Chloride 106 100 L (101-111) mmol/L Carbon Dioxide 25 23 (21-32) mmol/L Anion Gap 5.0 L 8.0 (6-13) BUN 7 10 (6-20) mg/dL Creatinine 0.4 0.5 (0.4-1.0) mg/dL Estimated GFR (MDRD) 175 135 (>89) Glucose 87 105 H (70-100) mg/dL Calcium 8.1 L 8.1 L (8.5-10.3) mg/dL Phosphorus 1.8 L 2.2 L (2.5-4.6) mg/dL Magnesium 1.7 (1.7-2.8) mg/dL Total Bilirubin 0.6 (0.2-1.0) mg/dL Direct Bilirubin 0.2 (0.1-0.5) mg/dL AST 31 (10-42) IU/L ALT 28 (10-60) IU/L Alkaline Phosphatase 67 (42-121) IU/L Total Protein 5.3 L (6.7-8.2) g/dL Albumin 2.9 L (3.2-5.5) g/dL Globulin 2.4 (2.1-4.2) g/dL Amylase 72 (28-100) U/L Lipase 169 H (22-51) U/L - Diagnostic Imaging Diagnostic Imaging Results: positive: Final report reviewed ABX Reporting Has patient been on IV antibiotics over the past 48 hours?: No Assessment/Plan - Problem List (1) Alcoholic pancreatitis Impression: He has significantly improved and her lipase is trending down. She does continue to have some abdominal pain after meals and is still requiring occasional IV pain medication. Given this, we will keep her 1 more night and hope to discharge her tomorrow. We will decrease the frequency of her Dilaudid and continue the oxycodone as needed. He was soft diet hope to advance to regular diet in the morning. Qualifiers: Chronicity: acute (2) Alcohol abuse Impression: She has not gone through withdrawal during this hospitalization. Continue thiamine and folate. (3) Hypokalemia Impression: We will replace orally. (4) Breast mass, right Impression: Will need outpatient follow-up and this was discussed with the patient. (5) Depression Impression: She has been tearful at times and misses her family. She was started on Atarax yesterday evening and this has helped with the feeling of anxiety. Will discuss prior to discharge regarding starting her on an SSRI/SNRI. (6) Transaminitis Impression: This has resolved. Was secondary to alcohol use.
[2020-01-21] MEDS: DOCUSATE SODIUM 250 MG CAPSULE PO SCH (17:12)
[2020-01-21] MEDS: SENNA 8.6 MG TABLET PO SCH (17:12)
[2020-01-21] MEDS: polyethylene glycoL 3350 17 GM PACKET PO SCH (21:32)
[2020-01-22] MEDS: oxyCODONE 5 MG TABLET PO PRN ×4 (02:11→20:24)
[2020-01-22] MEDS: SODIUM CHLORIDE FLUSH 0.9% 10 ML SYRINGE IVP PRN ×3 (05:10→22:49)
[2020-01-22] MEDS: HYDROmorphone 1 MG/ML CARPUJECT IVP PRN ×5 (05:10→22:49)
[2020-01-22 05:44] LABS: BASOPHILS # (AUTO) 0.1 10^3/uL (0.0-0.1); BASOPHILS % (AUTO) 1.1 %; EOSINOPHILS # (AUTO) 0.2 10^3/uL (0.0-0.7); EOSINOPHILS % (AUTO) 3.7 %; HGB - HEMOGLOBIN 11.4 g/dL (12.0-16.0); LYMPHOCYTES # (AUTO) 1.9 10^3/uL (1.5-3.5); LYMPHOCYTES % (AUTO) 32.6 %; MEAN CORPUSCULAR HEMOGLOBIN 34.1 pg (27.0-31.0); MEAN CORPUSCULAR VOLUME 97.6 fL (81.0-99.0); MEAN PLATELET VOLUME 9.2 fL (7.9-10.8); MONOCYTES # (AUTO) 0.5 10^3/uL (0.0-1.0); MONOCYTES % (AUTO) 8.5 %; NEUTROPHILS # (AUTO) 3.1 10^3/uL (1.5-6.6); NEUTROPHILS % (AUTO) 53.7 %; PLT - PLATELET COUNT 194 10^3/uL (130-450); RED BLOOD COUNT 3.34 10^6/uL (4.20-5.40); RED CELL DISTRIBUTION WIDTH 15.5 % (12.0-15.0); WHITE BLOOD COUNT 5.7 x10^3/uL (4.8-10.8)
[2020-01-22 06:16] LABS: ALBUMIN 3.1 g/dL (3.2-5.5); ALKALINE PHOSPHATASE 84 IU/L (42-121); ALT ALANINE AMINOTRANSFERASE 41 IU/L (10-60); AST ASPARTATE AMINOTRANSFERASE 64 IU/L (10-42); BILIRUBIN,DIRECT 0.2 mg/dL (0.1-0.5); BILIRUBIN,TOTAL 0.8 mg/dL (0.2-1.0); BUN - BLOOD UREA NITROGEN < 5 mg/dL (6-20); CALCIUM 8.6 mg/dL (8.5-10.3); CARBON DIOXIDE - CO2 28 mmol/L (21-32); CHLORIDE 103 mmol/L (101-111); CREATININE 0.4 mg/dL (0.4-1.0); GLUCOSE 90 mg/dL (70-100); MAGNESIUM 2.1 mg/dL (1.7-2.8); PHOSPHORUS 2.8 mg/dL (2.5-4.6); SODIUM 138 mmol/L (135-145); TOTAL PROTEIN 5.7 g/dL (6.7-8.2)
[2020-01-22] MEDS ORDERED: POTASSIUM CHLORIDE 20 MEQ TABLET PO ONE ×2 (07:33→13:34)
[2020-01-22] MEDS: SENNA 8.6 MG TABLET PO SCH (08:01)
[2020-01-22] MEDS: DOCUSATE SODIUM 250 MG CAPSULE PO SCH (08:01)
[2020-01-22] MEDS: ENOXAPARIN 40 MG/0.4 ML SYRINGE SUBQ SCH (08:02)
[2020-01-22] MEDS: NICOTINE 14 MG PATCH TOP SCH (08:02)
[2020-01-22] MEDS: POTASSIUM CHLOR 10 MEQ/100 ML 10 MEQ/100 ML BAG IV SCH ×2 (08:03→09:41)
[2020-01-22] MEDS: polyethylene glycoL 3350 17 GM PACKET PO SCH (08:03)
[2020-01-22] MEDS: SODIUM CHLORIDE FLUSH 0.9% 10 ML SYRINGE IVP SCH ×2 (08:12→16:08)
[2020-01-22] MEDS: MULTIVITAMIN 10 ML, THIAMINE INJ 100 MG, FOLIC ACID INJ 1 MG in SODIUM CHLORIDE 0.9% 1,... IV SCH (10:51)
--- NOTE | 2020-01-22 12:47 | XRAY Report ---
Reason: left mild to moderate abdominal pain Procedure Date: 01/22/2020 Accession Number: [id number] / [id number] Procedure: XR - Abdomen 1 View X-Ray CPT Code: 51365 Final Report FULL RESULT: EXAM: ABDOMEN RADIOGRAPHY EXAM DATE: 01/22/2020 11:48 AM. CLINICAL HISTORY: Left mild to moderate abdominal pain. COMPARISON: None. TECHNIQUE: 1 view. FINDINGS: Bowel Gas Pattern: Within normal limits. No dilated loops. Other: None. IMPRESSION: Normal 1-view abdomen x-ray. RADIA
[2020-01-22] MEDS ORDERED: MAGNESIUM CITRATE 296 ML BOTTLE PO PRN (13:35)
[2020-01-22] MEDS: ONDANSETRON 4 MG/2 ML VIAL IVP PRN (16:08)
--- NOTE | 2020-01-22 17:06 | PROVIDER PROGRESS NOTE ---
Assessment/Plan - Problem List (1) Alcoholic pancreatitis Qualifiers: Chronicity: acute Assessment/Plan: pt still complain of abdominal pain at upper quadrant. Lipase is 160. pt also complain of 7 days without bowel movement. continue banana bag with IVF, continue pain control, treat with constipation with enema, will consider clear diet if pt continue complaint of abdominal pain. (2)constipation pt also complain of 7 days without bowel movement. order mag citrate did not work, will order enema now (3) Alcohol abuse Impression: She has not gone through withdrawal during this hospitalization. Continue thiamine and folate. (4) Hypokalemia Impression: pt is still lower potassium, will replace, lab test (5) Breast mass, right Impression: discuss with pt and Will need outpatient follow-up and this was discussed with the patient. (6) Depression Impression: stable. (7) Transaminitis Impression: resolved, is secondary to alcohol use. - Current Meds Current Meds: Current Medications Generic Name Dose Route Start Last Admin Trade Name Freq PRN Reason Stop Dose Admin Docusate Sodium 250 - 500 mg 01/21/20 18:00 01/22/20 08:01 Colace 250mg Capsule PO 250 mg DAILY AL Administration Enoxaparin Sodium 40 mg 01/20/20 09:00 01/22/20 08:02 Lovenox SUBQ 40 mg DAILY AL Administration Hydromorphone HCl 1 mg 01/21/20 07:29 01/22/20 14:21 Dilaudid Inj Carp IVP 1 mg Q4HR PRN Administration PAIN Hydroxyzine Pamoate 50 mg 01/20/20 22:49 01/21/20 22:15 Vistaril PO 50 mg QPM PRN Administration Insomnia Multivitamins 10 ml/ Thiamine 1,011.2 mls @ 200 mls/hr 01/20/20 09:00 01/22/20 10:51 HCl 100 mg/ Folic Acid 1 mg/ IV 200 mls/hr Sodium Chloride DAILY AL Administration Magnesium Citrate 296 ml 01/22/20 13:35 01/22/20 14:11 PO 01/24/20 13:34 296 ml ONCE PRN Administration Constipation Nicotine 1 patch 01/19/20 17:06 01/22/20 08:02 Nicoderm TOP 1 patch DAILY AL Administration Ondansetron HCl 4 mg 01/19/20 14:04 01/22/20 16:08 Zofran Inj IVP 4 mg Q6HR PRN Administration Nausea / Vomiting Oxycodone HCl 5 mg 01/21/20 07:29 01/22/20 16:31 Roxicodone PO 5 mg Q4HR PRN Administration PAIN Polyethylene Glycol 17 gm 01/21/20 21:00 01/22/20 08:03 Miralax PO 17 gm DAILY AL Administration Prochlorperazine Edisylate 10 mg 01/19/20 20:36 01/21/20 00:09 Compazine Inj IVP 10 mg Q6HR PRN Administration Nausea / Vomiting Senna 8.6 - 17.2 mg 01/21/20 18:00 01/22/20 08:01 Senokot PO 8.6 mg DAILY AL Administration Sodium Chloride 10 ml 01/19/20 14:04 01/22/20 05:10 Normal Saline Flush 0.9% IVP 10 ml PRN PRN Administration NEEDED PER PROVIDER ORDERS Sodium Chloride 10 ml 01/19/20 17:00 01/22/20 16:08 Normal Saline Flush 0.9% IVP 10 ml 0100,0900,1700 AL Administration - Lab Result Fish Bone Diagrams: 01/22/20 05:31 01/22/20 12:49 - Additional Planning My Orders: My Active Orders 01/22/20 13:35 Magnesium Citrate 296 ml PO ONCE PRN 01/22/20 18:00 Mineral Oil [Mineral Oil Enema] 133 ml RC ONCE Subjective - Subjective Patient Reports: Constipation Objective Vital Signs: Vital Signs - 24 hr 01/21/20 01/21/20 01/22/20 20:18 23:31 05:00 Temperature 37.0 C 37.0 C 37 C Heart Rate [ 90 86 85 Brachial] Respiratory 16 16 16 Rate Blood Pressure 116/79 131/91 H 132/89 H [Right Brachial artery] O2 Saturation 96 97 93 01/22/20 01/22/20 01/22/20 05:18 08:05 12:31 Temperature 37.0 C 37.2 C 37.4 C Heart Rate [ 89 87 80 Brachial] Respiratory 19 16 16 Rate Blood Pressure 135/88 H 134/98 H 128/83 H [Right Brachial artery] O2 Saturation 97 95 97 01/22/20 15:39 Temperature 36.8 C Heart Rate [ 86 Brachial] Respiratory 18 Rate Blood Pressure 131/93 H [Right Brachial artery] O2 Saturation 99 Oxygen O2 Source Room air I&O (Last 24 Hrs): Intake and Output Totals x24h 01/20/20 01/21/20 01/22/20 23:59 23:59 23:59 Intake Total 5933.1 5203.7 1460 Output Total 500 700 Balance 5933.1 4703.7 760 General: Alert, Oriented x3, Mild distress HEENT: Atraumatic Neck: Supple Lymphatic: no adenopathy Neuro: Alert, Non Focal, Oriented Times 3 Cardiovascular: Regular rate, Normal S1, Normal S2 Respiratory: Chest non-tender, No respiratory distress, Breath sounds nml Abdomen: Normal bowel sounds, Soft, No tenderness Extremities: Normal pulses - Results Results: Laboratory Results WBC 5.7 x10^3/uL (4.8-10.8) 01/22/20 05:31 RBC 3.34 10^6/uL (4.20-5.40) L 01/22/20 05:31 Hgb 11.4 g/dL (12.0-16.0) L 01/22/20 05:31 Hct 32.6 % (37.0-47.0) L 01/22/20 05:31 MCV 97.6 fL (81.0-99.0) 01/22/20 05:31 MCH 34.1 pg (27.0-31.0) H 01/22/20 05:31 MCHC 35.0 g/dL (32.0-36.0) 01/22/20 05:31 RDW 15.5 % (12.0-15.0) H 01/22/20 05:31 Plt Count 194 10^3/uL (130-450) 01/22/20 05:31 MPV 9.2 fL (7.9-10.8) 01/22/20 05:31 Neut # (Auto) 3.1 10^3/uL (1.5-6.6) 01/22/20 05:31 Lymph # (Auto) 1.9 10^3/uL (1.5-3.5) 01/22/20 05:31 Kaufman # (Auto) 0.5 10^3/uL (0.0-1.0) 01/22/20 05:31 Eos # (Auto) 0.2 10^3/uL (0.0-0.7) 01/22/20 05:31 Baso # (Auto) 0.1 10^3/uL (0.0-0.1) 01/22/20 05:31 Absolute Nucleated RBC 0.00 x10^3/uL 01/22/20 05:31 Nucleated RBC % 0.0 /100WBC 01/22/20 05:31 Sodium 138 mmol/L (135-145) 01/22/20 05:31 Potassium 3.4 mmol/L (3.5-5.0) L 01/22/20 12:49 Chloride 103 mmol/L (101-111) 01/22/20 05:31 Carbon Dioxide 28 mmol/L (21-32) 01/22/20 05:31 Anion Gap 7.0 (6-13) 01/22/20 05:31 BUN < 5 mg/dL (6-20) L 01/22/20 05:31 Creatinine 0.4 mg/dL (0.4-1.0) 01/22/20 05:31 Estimated GFR (MDRD) 175 (>89) 01/22/20 05:31 Glucose 90 mg/dL (70-100) 01/22/20 05:31 Lactic Acid 1.6 mmol/L (0.5-2.2) 01/19/20 20:05 Calcium 8.6 mg/dL (8.5-10.3) 01/22/20 05:31 Phosphorus 2.8 mg/dL (2.5-4.6) 01/22/20 05:31 Magnesium 2.1 mg/dL (1.7-2.8) 01/22/20 05:31 Total Bilirubin 0.8 mg/dL (0.2-1.0) 01/22/20 05:31 Direct Bilirubin 0.2 mg/dL (0.1-0.5) 01/22/20 05:31 AST 64 IU/L (10-42) H 01/22/20 05:31 ALT 41 IU/L (10-60) 01/22/20 05:31 Alkaline Phosphatase 84 IU/L (42-121) 01/22/20 05:31 Total Protein 5.7 g/dL (6.7-8.2) L 01/22/20 05:31 Albumin 3.1 g/dL (3.2-5.5) L 01/22/20 05:31 Globulin 2.6 g/dL (2.1-4.2) 01/22/20 05:31 Albumin/Globulin Ratio 1.3 (1.0-2.2) 01/19/20 10:32 Amylase 72 U/L (28-100) 01/21/20 05:07 Lipase 160 U/L (22-51) H 01/22/20 12:30 Urine Color YELLOW 01/19/20 11:40 Urine Clarity CLEAR (CLEAR) 01/19/20 11:40 Urine pH 6.0 PH (5.0-7.5) 01/19/20 11:40 Ur Specific [place] >=1.030 (1.002-1.030) H 01/19/20 11:40 Urine Protein 100 mg/dL (NEGATIVE) H 01/19/20 11:40 Urine Glucose (UA) NEGATIVE mg/dL (NEGATIVE) 01/19/20 11:40 Urine Ketones >=80 mg/dL (NEGATIVE) H 01/19/20 11:40 Urine Occult Blood MODERATE (NEGATIVE) H 01/19/20 11:40 Urine Nitrite NEGATIVE (NEGATIVE) 01/19/20 11:40 Urine Bilirubin NEGATIVE (NEGATIVE) 01/19/20 11:40 Urine Urobilinogen 0.2 (NORMAL) E.U./dL (NORMAL) 01/19/20 11:40 Ur Leukocyte Esterase NEGATIVE (NEGATIVE) 01/19/20 11:40 Urine RBC 0-5 /HPF (0-5) 01/19/20 11:40 Urine WBC 0-3 /HPF (0-5) 01/19/20 11:40 Ur Squamous Epith Cells FEW Squamous (<= Few) 01/19/20 11:40 Urine Bacteria Few /HPF (None Seen) 01/19/20 11:40 Ur Microscopic Review INDICATED 01/19/20 11:40 Urine Culture Comments NOT INDICATED 01/19/20 11:40 Urine HCG, Qual NEGATIVE 01/19/20 11:40 Ethyl Alcohol 90.1 mg/dL 01/19/20 10:32 Serum Ketones SMALL (NEGATIVE) H 01/19/20 15:30 Sepsis Event Note (H) - Evaluation Current Stage of Sepsis: Ruled out ABX Reporting Has patient been on IV antibiotics over the past 48 hours?: No Current Medications - Current Medications Current Medications: Active Medications Docusate Sodium (Colace 250mg Capsule) 250 - 500 mg PO DAILY [facility] Last Admin: 01/22/20 08:01 Dose: 250 mg Enoxaparin Sodium (Lovenox) 40 mg SUBQ DAILY [facility] Last Admin: 01/22/20 08:02 Dose: 40 mg Hydromorphone HCl (Dilaudid Inj Carp) 1 mg IVP Q4HR PRN PRN Reason: PAIN Last Admin: 01/22/20 14:21 Dose: 1 mg Hydroxyzine Pamoate (Vistaril) 50 mg PO QPM PRN PRN Reason: Insomnia Last Admin: 01/21/20 22:15 Dose: 50 mg Multivitamins 10 ml/ Thiamine HCl 100 mg/ Folic Acid 1 mg/Sodium Chloride 1,011.2 mls @ 200 mls/hr IV DAILY [facility] Last Infusion: 01/22/20 16:00 Dose: Infused Magnesium Citrate () 296 ml PO ONCE PRN PRN Reason: Constipation Stop: 01/24/20 13:34 Last Admin: 01/22/20 14:11 Dose: 296 ml Mineral Oil (Mineral Oil Enema) 133 ml RC ONCE [facility] Stop: 01/22/20 18:01 Nicotine (Nicoderm) 1 patch TOP DAILY [facility] Last Admin: 01/22/20 08:02 Dose: 1 patch Ondansetron HCl (Zofran Inj) 4 mg IVP Q6HR PRN PRN Reason: Nausea / Vomiting Last Admin: 01/22/20 16:08 Dose: 4 mg Oxycodone HCl (Roxicodone) 5 mg PO Q4HR PRN PRN Reason: PAIN Last Admin: 01/22/20 16:31 Dose: 5 mg Polyethylene Glycol (Miralax) 17 gm PO DAILY [facility] Last Admin: 01/22/20 08:03 Dose: 17 gm Prochlorperazine Edisylate (Compazine Inj) 10 mg IVP Q6HR PRN PRN Reason: Nausea / Vomiting Last Admin: 01/21/20 00:09 Dose: 10 mg Senna (Senokot) 8.6 - 17.2 mg PO DAILY [facility] Last Admin: 01/22/20 08:01 Dose: 8.6 mg Sodium Chloride (Normal Saline Flush 0.9%) 10 ml IVP PRN PRN PRN Reason: NEEDED PER PROVIDER ORDERS Last Admin: 01/22/20 05:10 Dose: 10 ml Sodium Chloride (Normal Saline Flush 0.9%) 10 ml IVP 0100,0900,1700 AL Last Admin: 01/22/20 16:08 Dose: 10 ml No Known Home Medications 01/19/20
[2020-01-22] MEDS ORDERED: MINERAL OIL ENEMA 133 ML BOTTLE RC SCH (18:00)
[2020-01-22] MEDS: hydrOXYzine PAMOATE 25 MG CAPSULE PO PRN (20:25)
[2020-01-23] MEDS: oxyCODONE 5 MG TABLET PO PRN ×3 (00:54→09:36)
[2020-01-23] MEDS: SODIUM CHLORIDE FLUSH 0.9% 10 ML SYRINGE IVP SCH ×2 (00:55→09:35)
[2020-01-23] MEDS: SODIUM CHLORIDE FLUSH 0.9% 10 ML SYRINGE IVP PRN ×2 (03:01→06:52)
[2020-01-23] MEDS: HYDROmorphone 1 MG/ML CARPUJECT IVP PRN ×3 (03:01→11:40)
[2020-01-23 05:23] LABS: BASOPHILS # (AUTO) 0.1 10^3/uL (0.0-0.1); BASOPHILS % (AUTO) 1.3 %; EOSINOPHILS # (AUTO) 0.2 10^3/uL (0.0-0.7); EOSINOPHILS % (AUTO) 4.3 %; HGB - HEMOGLOBIN 11.2 g/dL (12.0-16.0); LYMPHOCYTES # (AUTO) 1.8 10^3/uL (1.5-3.5); LYMPHOCYTES % (AUTO) 34.8 %; MEAN PLATELET VOLUME 9.4 fL (7.9-10.8); MONOCYTES # (AUTO) 0.5 10^3/uL (0.0-1.0); MONOCYTES % (AUTO) 9.8 %; NEUTROPHILS # (AUTO) 2.6 10^3/uL (1.5-6.6); NEUTROPHILS % (AUTO) 49.4 %; PLT - PLATELET COUNT 228 10^3/uL (130-450); RED BLOOD COUNT 3.29 10^6/uL (4.20-5.40); RED CELL DISTRIBUTION WIDTH 15.9 % (12.0-15.0); WHITE BLOOD COUNT 5.3 x10^3/uL (4.8-10.8)
[2020-01-23 05:59] LABS: BUN - BLOOD UREA NITROGEN < 5 mg/dL (6-20); CALCIUM 8.6 mg/dL (8.5-10.3); CARBON DIOXIDE - CO2 27 mmol/L (21-32); CHLORIDE 100 mmol/L (101-111); CREATININE 0.5 mg/dL (0.4-1.0); GLUCOSE 100 mg/dL (70-100); MAGNESIUM 2.1 mg/dL (1.7-2.8); SODIUM 137 mmol/L (135-145)
[2020-01-23] MEDS ORDERED: POTASSIUM CHLORIDE 20 MEQ TABLET PO ONE (08:00)
[2020-01-23 08:08] LABS: KETONES, SERUM (ACETEST) NEGATIVE (NEGATIVE)
[2020-01-23 08:12] LABS: LIPASE 161 U/L (22-51)
[2020-01-23] MEDS: DOCUSATE SODIUM 250 MG CAPSULE PO SCH (09:34)
[2020-01-23] MEDS: polyethylene glycoL 3350 17 GM PACKET PO SCH (09:34)
[2020-01-23] MEDS: ENOXAPARIN 40 MG/0.4 ML SYRINGE SUBQ SCH (09:35)
[2020-01-23] MEDS: NICOTINE 14 MG PATCH TOP SCH (09:35)
[2020-01-23] MEDS: SENNA 8.6 MG TABLET PO SCH (09:35)
[2020-01-23] MEDS: MULTIVITAMIN 10 ML, THIAMINE INJ 100 MG, FOLIC ACID INJ 1 MG in SODIUM CHLORIDE 0.9% 1,... IV SCH (10:33)
[2020-01-23 13:10] VITALS: BP 120/80
--- NOTE | 2020-01-23 13:29 | Discharge Plan ---
Discharge Plan Problem Reviewed?: Yes Disposition: Home, Self Care Condition: Stable Prescriptions: oxyCODONE [Roxicodone] 5 mg PO Q4HR PRN #20 tablet PRN Reason: Pain Pnv No.95/Ferrous Fum/Folic AC [ Tablet] 1 each PO DAILY #15 tablet Thiamine HCl [Vitamin B-1] 100 mg PO DAILY #15 tablet Diet: Regular Activity Restrictions: Activity as Tolerated Shower Restrictions: No (fall precaution) Instruction Topics: Oxycodone tablets or capsules, Alcoholism Get Help, ED Withdrawal Alcohol Health Concerns: alcoholism Plan of Treatment: discussed with you about your alcohol issue, advise you quit alcohol. you understood and agreed to quit alcohol Care Goals: stabilization and improvement/resolved of your medical conditions. Assessment: discussed with you the care plan, you understood and agreed Additional Instructions or Follow Up instructions: you may followup your PCP in one to two weeks. Should your symptoms return or worsen, you may present ER or call 911 for help. No Smoking: If you smoke, Please STOP! Call for help. Follow-up with: Jaydon Herrera PA-C [Primary Care Provider] -
--- NOTE | 2020-01-23 13:46 | DISCHARGE SUMMARY ---
Discharge Summary Admit Date: 01/19/20 Discharge Date: 01/23/20 Discharging Provider: Romain Sanders Primary Care Provider: Jaydon Mcarthur Condition at Discharge: Stable Discharge Disposition: 01 Home, Self Care Discharge Facility Name: home - DIAGNOSES Admission Diagnoses: (1) Alcoholic pancreatitis (2) Alcoholic ketoacidosis (3) Alcohol abuse (4) Transaminitis (5) Breast mass, right (6) Depression Discharge Diagnoses with Status of Each Condition: (1) Alcoholic pancreatitis resolved. pt tolerate regular diet without nausea and vomiting. CT of abdomen reveals acute pancreatitis. (2)constipation resolved (3) Alcohol abuse discussed with pt. pt state she will quit alcohol (4) Hypokalemia resolved (5) Breast mass, right Dr. Mena discussed with pt for out-pt mammogram. I discussed with pt also for followup care. (6) Depression resolved (7) Transaminitis resolved - HPI History of Present Illness: refer from Dr. Mena's HPI on 01/19/2020 This is a 44-year-old female with a past medical history significant for hypertension depression who presents today complaining of abdominal pain. She states that she has been drinking alcohol on a daily basis since July. She is drinking a bottle of whiskey each day and she has been trying to quit at times but would get tremors and so she would continue to drink. She began drinking in July due to stress at work and at home. Reports that yesterday she developed abdominal pain that became more severe overnight. She had episodes of nausea and vomiting yesterday. She reports no blood when she did vomit. She states she had a poor appetite and has been able to keep nothing down. She tried to drink alcohol this morning but she continued to vomit. Reports that pain is 10 out of 10 located in the epigastric area. Denies any fevers, chills, chest pain, dyspnea. Currently does not take any medications. She denies any current drug use and reports quitting meth over 5 years ago. In the emergency department, she is on be afebrile temperature of 36.9 C. She was tachycardic with a heart rate of 119. Hypertensive the blood pressure of 140/118. She was tachypneic and saturating well on room air. Labs showed a white count of 11.2 and hemoglobin of 16.6. Her BMP showed her bicarbonate was 8 and an anion gap of 33. Her AST and ALT were elevated. Lipase is also elevated at 740. Urinalysis showed greater than 80 ketones and a specific gravity of 1.03. CT of the abdomen and pelvis showed findings compatible with pancreatitis. Given these findings, medicine was consulted for admission. - HOSPITAL COURSE Hospital Course: Patient was admitted for abdominal pain, CAT scan of abdomen reviewed acute pancreatitis, patient has alcoholic level was 90, patient was treated with bowel rest, intravenous IV fluids, lab monitor. After treatment, patient abdominal pain is controlled, patient tolerated regular diet without nausea vomiting. See detailed hospital course is as below (1) Alcoholic pancreatitis resolved. pt tolerate regular diet without nausea and vomiting. CT of abdomen reveals acute pancreatitis. (2)constipation resolved (3) Alcohol abuse discussed with pt. pt state she will quit alcohol (4) Hypokalemia resolved (5) Breast mass, right Dr. Mena discussed with pt for out-pt mammogram. I discussed with pt also for followup care. (6) Depression resolved (7) Transaminitis resolved - ALLERGIES Allergies/Adverse Reactions: Allergies Allergy/AdvReac Type Severity Reaction Status Date / Time No Known Drug Allergies Allergy Verified 01/19/20 10:21 - MEDICATIONS Home Medications: Ambulatory Orders Medication Instructions Recorded Confirmed Pnv No.95/Ferrous Fum/Folic AC 1 each PO DAILY #15 tablet 01/23/20 [ Tablet] Thiamine HCl [Vitamin B-1] 100 mg PO DAILY #15 tablet 01/23/20 oxyCODONE [Roxicodone] 5 mg PO Q4HR PRN #20 tablet 01/23/20 - PHYSICAL EXAM AT DISCHARGE General Appearance: positive: No acute distress, Alert. negative: Lethargic Eyes Bilateral: positive: Normal inspection, PERRL, No lid inflammation ENT: positive: ENT inspection nml, Pharynx nml, No signs of dehydration. negative: Dry mucous membranes Neck: positive: Nml inspection, Thyroid nml, Trachea midline. negative: Thyromegaly, Stiff neck, Tracheal deviation Respiratory: positive: Chest non-tender, No respiratory distress, Breath sounds nml. negative: Wheezes, Rales, Rhonchi Cardiovascular: positive: Regular rate & rhythm, No murmur, No gallop. negative: Irregularly irregular, Tachycardia, Bradycardia, Systolic murmur, Diastolic murmur Peripheral Pulses: positive: 2+ Abdomen: positive: Non-tender, No organomegaly, Nml bowel sounds, No distention. negative: Tenderness, Guarding, Rebound Back: positive: Nml inspection. negative: CVA tenderness (R), CVA tenderness (L) Skin: positive: Color nml, No rash, Warm, Dry. negative: Cyanosis, Diaphoresis, Pallor Extremities: positive: Non-tender, Full ROM, Nml appearance. negative: Calf tenderness, Jorgito's sign/cords Neurologic/Psychiatric: positive: Oriented x3, Motor nml, Sensation nml, Mood/affect nml. negative: Weakness, Sensory loss, Facial droop, Slurred/abnml speech, Depressed mood/affect - LABS Result Diagrams: 01/23/20 05:05 01/23/20 05:40 - SEPSIS Current Stage of Sepsis: Ruled out - FOLLOW UP Follow Up: discussed with you about your alcohol issue, advise you quit alcohol. you understood and agreed to quit alcohol. followup to have mammogram for her right breast small nodule. you may followup your PCP in one to two weeks. Should your symptoms return or worsen, you may present ER or call 911 for help. - TIME SPENT Time Spent in Discharge (Minutes): 30
== END 2020-01-23 14:17 | disposition home or self-care (01) | DRG 640 ==
LOC: ED 10:13 → MS2 14:04
PROVIDERS: ADMIT Internal Medicine; ATTEND Nurse Practitioner Gerontology
DX: E87.2 Acidosis (principal); K85.20 Alcohol induced acute pancreatitis without necrosis or infection; K59.00 Constipation, unspecified; F10.10 Alcohol abuse, uncomplicated; E87.6 Hypokalemia; F32.9 Major depressive disorder, single episode, unspecified; R74.0 Nonspecific elevation of levels of transaminase and lactic acid dehydrogenase [LDH]; I10 Essential (primary) hypertension; F17.210 Nicotine dependence, cigarettes, uncomplicated; N63.0 Unspecified lump in unspecified breast
CPT/HCPCS: 36415; 74018; 74177; 80048; 80053; 80076; 80320; 81001; 81025; 82009; 82150; 83605; 83690; 83735; 84100; 84132; 85025; 96365; 96375; 99284; 99285; 99406; A9270; J1170; J1650; J2270; J3411; J7040; J7120; Q9967; 81003; 87086

== ENCOUNTER 2020-02-20 08:00 | Outpatient (CLI) | payer MEDICAID ==
[2020-02-20 19:02] LABS: BASOPHILS # (AUTO) 0.2 10^3/uL (0.0-0.1); BASOPHILS % (AUTO) 1.5 %; EOSINOPHILS # (AUTO) 0.8 10^3/uL (0.0-0.7); EOSINOPHILS % (AUTO) 7.5 %; HGB - HEMOGLOBIN 14.4 g/dL (12.0-16.0); LYMPHOCYTES # (AUTO) 3.6 10^3/uL (1.5-3.5); MEAN CORPUSCULAR HEMOGLOBIN 32.4 pg (27.0-31.0); MEAN CORPUSCULAR HGB CONC 33.4 g/dL (32.0-36.0); MEAN CORPUSCULAR VOLUME 96.9 fL (81.0-99.0); MEAN PLATELET VOLUME 9.6 fL (7.9-10.8); MONOCYTES # (AUTO) 0.7 10^3/uL (0.0-1.0); MONOCYTES % (AUTO) 6.3 %; NEUTROPHILS # (AUTO) 5.3 10^3/uL (1.5-6.6); NEUTROPHILS % (AUTO) 50.4 %; PLT - PLATELET COUNT 360 10^3/uL (130-450); RED BLOOD COUNT 4.45 10^6/uL (4.20-5.40); RED CELL DISTRIBUTION WIDTH 15.9 % (12.0-15.0); WHITE BLOOD COUNT 10.5 x10^3/uL (4.8-10.8)
[2020-02-20 19:07] LABS: ALBUMIN/GLOBULIN RATIO 1.3 (1.0-2.2); BILIRUBIN,TOTAL 0.5 mg/dL (0.2-1.0); CALCIUM 9.5 mg/dL (8.5-10.3); CREATININE 0.6 mg/dL (0.4-1.0); TOTAL PROTEIN 7.1 g/dL (6.7-8.2)
== END 2020-02-20 23:59 | disposition home or self-care (01) ==
LOC: LAB.WCP 08:00
PROVIDERS: ATTEND Nurse Practitioner Family
DX: E87.6 Hypokalemia (principal); K86.0 Alcohol-induced chronic pancreatitis
CPT/HCPCS: 36415; 80053; 83690; 85025

== ENCOUNTER 2020-03-13 14:53 | Outpatient (CLI) | payer MEDICAID ==
--- NOTE | 2020-03-14 11:59 | Ultrasound Report ---
LIMITED ULTRASOUND OF RIGHT BREAST: 03/13/2020 CLINICAL: Follow up from incidental finding on CT exam, Right breast mass. Comparison is made to exam dated: 03/13/2020 mammogram - formerly [facility]. Color flow and real-time ultrasound of the right breast 10 o'clock region were performed. Sumner scale images of the real-time examination were reviewed. There is a 1.9 cm x 1.8 cm x 0.9 cm oval mass with a circumscribed and microlobulated margin in the r ight breast at 10 o'clock middle depth 4 cm from the nipple. This oval mass is hypoechoic with a wel l-defined boundary and no posterior acoustic shadowing or enhancement. This correlates with mammogra phy findings. Color flow imaging demonstrates that there is an adjacent vascularity. IMPRESSION: PROBABLY BENIGN The 1.9 cm oval mass in the right breast most likely is a fibroadenoma and is probably benign. Exam findings were conveyed to the patient. Discussion of possible biopsy versus follow-up imaging wa s held. The patient would like to proceed with follow-up imaging. Additionally there are multiple benign appearing masses in both breasts. These findings are probably benign. A follow-up right mammogram and right ultrasound in 6 months is recommended to demonstrate stability. This exam was interpreted at Station ID: [id number]. Electronically Signed By: Stuart Toussaint M.D. slc/:03/14/2020 09:18:07 Entry: - 03/14/2020 09:18:08 Ultrasound BI-RADS: 3 Probably benign BI-RADS CATEGORY: (3) - 3 Mammo and US [id number] 6 month follow-up LATERALITY: (B)
--- NOTE | 2020-03-14 11:59 | Mammography Report ---
BILATERAL DIGITAL DIAGNOSTIC MAMMOGRAM 3D/2D: 03/13/2020 CLINICAL: Right breast lump found on CT. Baseline exam. No prior mammograms available for comparison. CT abdomen and pelvis 01/19/2020 demonstr ates a mass in the right breast. The tissue of both breasts is heterogeneously dense. This may lower the sensitivity of mammography. There is a 2 cm oval mass with an obscured and circumscribed margin in the right breast at 10 o'clock middle depth. This correlates as an incidental finding on prior CT scan. Additional circumscribed masses in both breasts. No significant calcifications. IMPRESSION: INCOMPLETE: NEEDS ADDITIONAL IMAGING EVALUATION The 2 cm oval mass in the right breast corresponding to the incidental finding most likely is a cyst or a fibroadenoma and is indeterminate. A targeted ultrasound is recommended and will immediately follow. This exam was interpreted at Station ID: [id number]. NOTE: For mammograms, a report in lay terms will be sent to the patient. Approximately 15% of breast malignancies will not be visualized mammographically. In the management of a palpable breast mass, a negative mammogram must not discourage biopsy of a clinically suspicious lesion. Electronically Signed By: Stuart Toussaint M.D. slc/:03/13/2020 16:31:53 ACR BI-RADS Category 0: Incomplete 3340F PARENCHYMAL PATTERN: (D) - The breast(s) demonstrate(s) heterogeneously dense fibroglandular paramira acosta. BI-RADS CATEGORY: (0) - 0 Ultrasound [id number] Immediate follow-up LATERALITY: (B)
== END 2020-03-13 14:54 | disposition home or self-care (01) ==
LOC: DI 14:53
PROVIDERS: ATTEND Nurse Practitioner Family
DX: N63.12 Unspecified lump in the right breast, upper inner quadrant (principal)
CPT/HCPCS: 76642; 77066

== ENCOUNTER 2020-05-02 08:44 | Emergency (ER) | payer MEDICAID ==
[2020-05-02 09:55] LABS: BASOPHILS # (AUTO) 0.2 10^3/uL (0.0-0.1); BASOPHILS % (AUTO) 1.7 %; EOSINOPHILS % (AUTO) 0.1 %; LYMPHOCYTES # (AUTO) 1.5 10^3/uL (1.5-3.5); LYMPHOCYTES % (AUTO) 16.4 %; MEAN CORPUSCULAR HGB CONC 34.4 g/dL (32.0-36.0); MEAN CORPUSCULAR VOLUME 101.8 fL (81.0-99.0); MEAN PLATELET VOLUME 9.7 fL (7.9-10.8); MONOCYTES # (AUTO) 0.6 10^3/uL (0.0-1.0); NEUTROPHILS # (AUTO) 6.8 10^3/uL (1.5-6.6); NEUTROPHILS % (AUTO) 74.4 %; PLT - PLATELET COUNT 350 10^3/uL (130-450); RED CELL DISTRIBUTION WIDTH 17.3 % (12.0-15.0); WHITE BLOOD COUNT 9.1 x10^3/uL (4.8-10.8)
[2020-05-02] MEDS ORDERED: SODIUM CHLORIDE 0.9% 1,000 ML IV STA (10:15)
[2020-05-02 10:16] LABS: ALBUMIN 3.8 g/dL (3.2-5.5); ALBUMIN/GLOBULIN RATIO 1.2 (1.0-2.2); CALCIUM 8.6 mg/dL (8.5-10.3); CREATININE 0.6 mg/dL (0.4-1.0); TOTAL PROTEIN 7.1 g/dL (6.7-8.2)
[2020-05-02] MEDS ORDERED: KETOROLAC 30 MG/ML VIAL IVP STA (10:16)
[2020-05-02] MEDS ORDERED: LORazepam 2 MG/ML VIAL IVP STA (10:16)
[2020-05-02] MEDS ORDERED: PROMETHAZINE INJ 25 MG in SODIUM CHLORIDE 0.9% 50 ML IV STA (10:16)
--- NOTE | 2020-05-02 11:27 | ED Physician Documentation ---
History of Present Illness - Stated complaint Stated Complaint: BODY PX - Chief complaint Chief Complaint: General - History obtained from History obtained from: Patient - Additonal information Additional information: Pt comes to the ED complaining of nausea and body pain since cutting back her alcohol intake from a gallon of liquor/day to 1/4 gallon/day. She has been working with [facility] on her cessation plan, and states they told her not to quit all at once. Pt has been using Librium to help with the sx, but states she is out. No fevers. No other signs of illness. Pt states she has a h/o pancreatitis. Review of Systems Ten Systems: 10 systems reviewed and negative Constitutional: reports: Reviewed and negative Eyes: reports: Reviewed and negative Ears: reports: Reviewed and negative Nose: reports: Reviewed and negative Throat: reports: Reviewed and negative Cardiac: reports: Reviewed and negative Respiratory: reports: Reviewed and negative GI: reports: Nausea, Vomiting : reports: Reviewed and negative Skin: reports: Reviewed and negative Musculoskeletal: reports: Reviewed and negative Neurologic: reports: Reviewed and negative Psychiatric: reports: Reviewed and negative Endocrine: reports: Reviewed and negative Immunocompromised: reports: Reviewed and negative PD PAST MEDICAL HISTORY - Past Medical History Past Medical History: Yes Cardiovascular: None Respiratory: None Neuro: None, Migraines Endocrine/Autoimmune: None GI: Pancreatitis 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, 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) : None HEENT: None Psych: None Musculoskeletal: None Derm: None Other Past Medical History: alcoholism - Past Surgical History Past Surgical History: Yes /DOCTOR OF NURSE ANESTHESIA PRACTICE: Other - Present Medications Home Medications: Ambulatory Orders Medication Instructions Recorded Confirmed Pnv No.95/Ferrous Fum/Folic AC 1 each PO DAILY #15 tablet 01/23/20 [ Tablet] Thiamine HCl [Vitamin B-1] 100 mg PO DAILY #15 tablet 01/23/20 oxyCODONE [Roxicodone] 5 mg PO Q4HR PRN #20 tablet 01/23/20 Ondansetron Odt [Zofran] 4 mg TL Q6H PRN #10 tablet 05/02/20 chlordiazePOXIDE [Librium] 25 mg PO Q6H PRN #12 capsule 05/02/20 - Allergies Allergies/Adverse Reactions: Allergies Allergy/AdvReac Type Severity Reaction Status Date / Time No Known Drug Allergies Allergy Verified 05/02/20 08:58 - Social History Does the pt smoke?: Yes Smoking Status: Current every day smoker Does the pt drink ETOH?: No Does the pt have substance abuse?: No - Immunizations Immunizations are current?: Yes Immunizations: TDAP >10years/unknown - POLST Patient has POLST: No PD ED PE NORMAL - Vitals Vital signs reviewed: Yes - General General: Alert and oriented X 3, No acute distress, Well developed/nourished - HEENT HEENT: Atraumatic, PERRL, EOMI, Moist mucous membranes - Neck Neck: Supple, no meningeal sign - Cardiac Cardiac: RRR, No murmur - Respiratory Respiratory: No respiratory distress, Clear bilaterally - Abdomen Abdomen: Soft, Non distended, Other (mild diffuse tenderness) - Derm Derm: Warm and dry - Extremities Extremities: No deformity - 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 - Psych Psych: Normal mood, Normal affect Results - Vitals Vitals: Oxygen O2 Source Room air - Labs Labs: Laboratory Tests 05/02/20 05/02/20 09:32 09:32 WBC 9.1 RBC 4.00 L Hgb 14.0 Hct 40.7 MCV 101.8 H MCH 35.0 H MCHC 34.4 RDW 17.3 H Plt Count 350 MPV 9.7 Neut # (Auto) 6.8 H Lymph # (Auto) 1.5 [place] # (Auto) 0.6 Eos # (Auto) 0.0 Baso # (Auto) 0.2 H Absolute Nucleated RBC 0.03 Nucleated RBC % 0.3 Sodium 140 Potassium 3.1 L Chloride 99 L Carbon Dioxide 16 L Anion Gap 25.0 H BUN 11 Creatinine 0.6 Estimated GFR (MDRD) 110 Glucose 114 H Calcium 8.6 Total Bilirubin 5.0 H AST 475 H ALT 151 H Alkaline Phosphatase 220 H Total Protein 7.1 Albumin 3.8 Globulin 3.3 Albumin/Globulin Ratio 1.2 Lipase 219 H PD MEDICAL DECISION MAKING - ED course Complexity details: reviewed old records, reviewed results, re-evaluated patient, considered differential, d/w patient ED course: Pt was given IV fluids and anti-emetics, with improvement in sx. Her labs showed moderate elevation of her LFTs and mild elevation of lipase, most likely due to her chronic alcohol intake. Pt states that [facility] told her to come here today, but I have d/w her that it is very important that she follow up with them to be she sticks with their plan. I have given her a small Rx for Librium here, as well as for Zofran. We have discussed the usual indications for return. Departure - Departure Disposition: 01 Home, Self Care Clinical Impression: Chronic pain Qualifiers: Chronic pain type: chronic pain syndrome Qualified Code(s): G89.4 - Chronic pa in syndrome Alcohol dependence Qualifiers: Substance use status: uncomplicated Qualified Code(s): F10.20 - Alcohol dependence, uncomplicated Condition: Stable Instructions: ED Alcohol Abuse Prescriptions: chlordiazePOXIDE [Librium] 25 mg PO Q6H PRN #12 capsule PRN Reason: Alcohol Withdrawal Ondansetron Odt [Zofran] 4 mg TL Q6H PRN #10 tablet PRN Reason: Nausea / Vomiting Comments: Your labs show some stress to your liver from the drinking. However, there is not evidence of a an attack of pancreatitis at this time. Please continue your medications and follow-[facility]. Take the Zofran as needed for nausea and the Librium as needed for any further alcohol withdrawal symptoms. Be sure to get plenty of water to drink, as well. Discharge Date/Time: 05/02/20 12:33
[2020-05-02 12:28] VITALS: BP 123/90
== END 2020-05-02 12:33 | disposition home or self-care (01) ==
LOC: ED 08:44
DX: F10.20 Alcohol dependence, uncomplicated (principal); G89.4 Chronic pain syndrome; F17.200 Nicotine dependence, unspecified, uncomplicated
CPT/HCPCS: 36415; 80053; 83690; 85025; 96361; 96365; 96375; 99284; J2060; J7040

== ENCOUNTER 2020-05-05 14:33 | Outpatient (CLI) | payer MEDICAID | END 2020-05-05 14:34 | disposition critical access hospital (66) | LOC: EMS 14:33 | PROVIDERS: ATTEND Surgery | DX: R10.9 Unspecified abdominal pain (principal); R11.2 Nausea with vomiting, unspecified | CPT/HCPCS: A0425; A0429; A0999 ==

== ENCOUNTER 2020-05-05 14:36 | Inpatient (IN) | payer MEDICAID ==
[2020-05-05] MEDS ORDERED: SODIUM CHLORIDE 0.9% 1,000 ML IV STA (15:02)
[2020-05-05] MEDS ORDERED: THIAMINE INJ 100 MG in SODIUM CHLORIDE 0.9% 50 ML IV STA (15:02)
[2020-05-05] MEDS ORDERED: MORPHINE 2 MG/ML CARPUJECT IVP STA ×3 (15:02→18:07)
--- NOTE | 2020-05-05 15:05 | ED Physician Documentation ---
PD HPI ABD PAIN - Stated complaint Stated Complaint: CONSTIPATION - Chief complaint Chief Complaint: Abd Pain - History obtained from History obtained from: Patient - Additional information Additional information: 45-year-old woman with history of alcoholism presents by ambulance for abdominal, back pain, leg pain, and constipation. She had a lot of troubles lately with trying to quit drinking. For the last week she has been feeling sick with vomiting. Poor oral intake. Lack of bowel movements. Now developed Abdominal and back pain as well as leg pain below the thighs. There is no injury. No blood in the vomit. 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, 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) : None HEENT: None Psych: None Musculoskeletal: None Derm: None - Past Surgical History Past Surgical History: Yes /AIRCONDITIONING ENGINEER: Other - Present Medications Home Medications: Ambulatory Orders Medication Instructions Recorded Confirmed Pnv No.95/Ferrous Fum/Folic AC 1 each PO DAILY #15 tablet 01/23/20 [ Tablet] Thiamine HCl [Vitamin B-1] 100 mg PO DAILY #15 tablet 01/23/20 oxyCODONE [Roxicodone] 5 mg PO Q4HR PRN #20 tablet 01/23/20 Ondansetron Odt [Zofran] 4 mg TL Q6H PRN #10 tablet 05/02/20 chlordiazePOXIDE [Librium] 25 mg PO Q6H PRN #12 capsule 05/02/20 - Allergies Allergies/Adverse Reactions: Allergies Allergy/AdvReac Type Severity Reaction Status Date / Time No Known Drug Allergies Allergy Verified 05/02/20 08:58 - Social History Does the pt smoke?: Yes Smoking Status: Current every day smoker Does the pt drink ETOH?: No Does the pt have substance abuse?: No - Immunizations Immunizations are current?: Yes Immunizations: TDAP >10years/unknown - POLST Patient has POLST: No PD ED PE NORMAL - Vitals Vital signs reviewed: Yes - General General: Alert and oriented X 3, Other (She is writhing and uncomfortable, modestly tachycardic) - HEENT HEENT: PERRL, Other (She is icteric) - Neck Neck: Supple, no meningeal sign, No bony TTP - Cardiac Cardiac: RRR, No murmur - Respiratory Respiratory: No respiratory distress, Clear bilaterally - Abdomen Abdomen: Other (Diminished but not quite absent bowel tones with mild distention, mild diffuse tenderness without surgical signs.) - Back Back: No CVA TTP, No spinal TTP - Derm Derm: Normal color, Warm and dry - Extremities Extremities: Other (Lower extremities are nontender, nonswollen, full range of motion) - 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, Normal speech Results - Vitals Vitals: Vital Signs - 24 hr 05/05/20 05/05/20 05/05/20 14:46 14:50 17:16 Temperature 36.6 C 36.6 C Heart Rate 117 H 117 H 94 Respiratory 16 16 Rate Blood Pressure 127/95 H 127/95 H 115/93 H O2 Saturation 97 97 97 Oxygen O2 Source Room air - Labs Labs: Laboratory Tests 05/05/20 05/05/20 05/05/20 15:27 15:27 15:27 WBC 8.8 RBC 3.78 L Hgb 13.7 Hct 38.2 MCV 101.1 H MCH 36.2 H MCHC 35.9 RDW 15.2 H Plt Count 270 MPV 9.7 Neut # (Auto) 6.4 Lymph # (Auto) 1.6 [place] # (Auto) 0.6 Eos # (Auto) 0.0 Baso # (Auto) 0.2 H Absolute Nucleated RBC 0.00 Nucleated RBC % 0.0 PT 14.4 H INR 1.3 H VBG pH VBG pCO2 VBG pO2 VBG HCO3 VBG Total CO2 VBG O2 Saturation VBG Base Excess Sodium 135 Potassium 2.5 L* Chloride 96 L Carbon Dioxide 16 L Anion Gap 23.0 H BUN 13 Creatinine 0.5 Estimated GFR (MDRD) 135 Glucose 104 H Calcium 9.6 Magnesium 2.3 Total Bilirubin 10.0 H AST 605 H ALT 196 H Alkaline Phosphatase 253 H Total Creatine Kinase 28 Total Protein 7.7 Albumin 4.0 Globulin 3.7 Albumin/Globulin Ratio 1.1 Lipase 100 H Ur Specific [place] Urine HCG, Qual Salicylates < 6.0 Urine Opiates Screen Ur Oxycodone Screen Urine Methadone Screen Ur Propoxyphene Screen Acetaminophen < 10 L Ur Barbiturates Screen Ur Tricyclics Screen Ur Phencyclidine Scrn Ur Amphetamine Screen U Methamphetamines Scrn U Benzodiazepines Scrn Urine Cocaine Screen U Cannabinoids Screen Ethyl Alcohol 124.1 05/05/20 05/05/20 15:27 16:43 WBC RBC Hgb Hct MCV MCH MCHC RDW Plt Count MPV Neut # (Auto) Lymph # (Auto) [place] # (Auto) Eos # (Auto) Baso # (Auto) Absolute Nucleated RBC Nucleated RBC % PT INR VBG pH 7.404 VBG pCO2 27.2 L VBG pO2 73.3 H VBG HCO3 16.6 L VBG Total CO2 17.5 L VBG O2 Saturation 94.1 H VBG Base Excess -6.4 L Sodium Potassium Chloride Carbon Dioxide Anion Gap BUN Creatinine Estimated GFR (MDRD) Glucose Calcium Magnesium Total Bilirubin AST ALT Alkaline Phosphatase Total Creatine Kinase Total Protein Albumin Globulin Albumin/Globulin Ratio Lipase Ur Specific [place] >=1.030 H Urine HCG, Qual NEGATIVE Salicylates Urine Opiates Screen POSITIVE H Ur Oxycodone Screen NEGATIVE Urine Methadone Screen NEGATIVE Ur Propoxyphene Screen NEGATIVE Acetaminophen Ur Barbiturates Screen NEGATIVE Ur Tricyclics Screen NEGATIVE Ur Phencyclidine Scrn NEGATIVE Ur Amphetamine Screen NEGATIVE U Methamphetamines Scrn NEGATIVE U Benzodiazepines Scrn POSITIVE H Urine Cocaine Screen NEGATIVE U Cannabinoids Screen POSITIVE H Ethyl Alcohol PD MEDICAL DECISION MAKING - ED course ED course: 45-year-old woman with alcoholic pancreatitis and gastritis, also evidence of liver failure with a meld score of 19, discriminant factor is 16 suggesting no need for steroids. CT with evidence of colitis although this is in contrast with the H&P since she has not had diarrhea .Electrolyte abnormalities, most notably the potassium repleted IV. Spoke with Dr. Vera for admission at 6 PM. Departure - Departure Disposition: 66 [facility] DC/Xfer Clinical Impression: Transaminitis, Hypokalemia Alcoholic pancreatitis Qualifiers: Chronicity: acute Acute pancreatitis complication: unspecified Qualified Code(s): K85.20 - Alcohol induced acute pancreatitis without necrosis or infection Abdominal pain Qualifiers: Abdominal location: generalized Qualified Code(s): R10.84 - Generalized abdominal pain Condition: Serious
[2020-05-05] MEDS ORDERED: IOVERSOL 320 100 ML VIAL IVP ONE ×2 (15:13→21:08)
[2020-05-05 15:34] LABS: BASOPHILS # (AUTO) 0.2 10^3/uL (0.0-0.1); BASOPHILS % (AUTO) 1.7 %; EOSINOPHILS % (AUTO) 0.2 %; HGB - HEMOGLOBIN 13.7 g/dL (12.0-16.0); LYMPHOCYTES # (AUTO) 1.6 10^3/uL (1.5-3.5); LYMPHOCYTES % (AUTO) 17.9 %; MEAN CORPUSCULAR HEMOGLOBIN 36.2 pg (27.0-31.0); MEAN CORPUSCULAR HGB CONC 35.9 g/dL (32.0-36.0); MEAN CORPUSCULAR VOLUME 101.1 fL (81.0-99.0); MEAN PLATELET VOLUME 9.7 fL (7.9-10.8); MONOCYTES # (AUTO) 0.6 10^3/uL (0.0-1.0); MONOCYTES % (AUTO) 6.7 %; NEUTROPHILS # (AUTO) 6.4 10^3/uL (1.5-6.6); NEUTROPHILS % (AUTO) 72.9 %; PLT - PLATELET COUNT 270 10^3/uL (130-450); RED BLOOD COUNT 3.78 10^6/uL (4.20-5.40); RED CELL DISTRIBUTION WIDTH 15.2 % (12.0-15.0); WHITE BLOOD COUNT 8.8 x10^3/uL (4.8-10.8)
[2020-05-05 15:39] LABS: INR 1.3 (0.8-1.2); PT - PROTHROMBIN TIME 14.4 secs (9.9-12.6)
[2020-05-05 15:40] LABS: VBG PCO2 27.2 mmHg (41-51); VBG PH 7.404 (7.31-7.41); VBG PO2 73.3 mmHg (25-47)
[2020-05-05 15:41] LABS: VBG BASE EXCESS -6.4 mmol/L (-2 - +2); VBG TOTAL CO2 17.5 mmol/L (24-29)
[2020-05-05 15:53] LABS: ACETAMINOPHEN < 10 ug/mL (10-30); ALBUMIN/GLOBULIN RATIO 1.1 (1.0-2.2); ALKALINE PHOSPHATASE 253 IU/L (42-121); ALT ALANINE AMINOTRANSFERASE 196 IU/L (10-60); AST ASPARTATE AMINOTRANSFERASE 605 IU/L (10-42); BUN - BLOOD UREA NITROGEN 13 mg/dL (6-20); CALCIUM 9.6 mg/dL (8.5-10.3); CARBON DIOXIDE - CO2 16 mmol/L (21-32); CHLORIDE 96 mmol/L (101-111); CK- CREATINE KINASE 28 IU/L (22-269); CREATININE 0.5 mg/dL (0.4-1.0); GLUCOSE 104 mg/dL (70-100); LIPASE 100 U/L (22-51); MAGNESIUM 2.3 mg/dL (1.7-2.8); SALICYLATE < 6.0 mg/dL; SODIUM 135 mmol/L (135-145); TOTAL PROTEIN 7.7 g/dL (6.7-8.2)
[2020-05-05] MEDS ORDERED: POTASSIUM CHLOR 10 MEQ/100 ML 10 MEQ/100 ML BAG IV ONE ×2 (15:55)
[2020-05-05 16:56] LABS: MUDS CUTOFF CONCENTRATIONS CUTOFF CONC BELOW:
[2020-05-05 17:01] LABS: HCG UR QUAL NEGATIVE
[2020-05-05 17:08] LABS: AMPHETAMINE SCREEN,URINE NEGATIVE (NEGATIVE); BENZODIAZEPINES SCREEN, URINE POSITIVE (NEGATIVE); COCAINE SCREEN URINE NEGATIVE (NEGATIVE); METHADONE SCREEN, URINE NEGATIVE (NEGATIVE); METHAMPHETAMINES SCREEN, URINE NEGATIVE (NEGATIVE); OPIATE SCREEN, URINE POSITIVE (NEGATIVE); OXYCODONE SCREEN, URINE NEGATIVE (NEGATIVE); PROPOXYPHENE SCREEN, URINE NEGATIVE (NEGATIVE); TRICYCLIC ANTIDEPRESSANT,URINE NEGATIVE (NEGATIVE)
--- NOTE | 2020-05-05 17:45 | CT Report ---
PROCEDURE: Abdomen/Pelvis W INDICATIONS: IV only, abd pain CONTRAST: IV CONTRAST: Optiray 320 ml: 100 PO CONTRAST: *NO PO CONTRAST TECHNIQUE: After the administration of nonenhancing intravenous contrast, 5 mm thick sections acquired from the diaphragms to the symphysis. 5 mm thick coronal and sagittal reformats were acquired. For radiation dose reduction, the following was used: automated exposure control, adjustment of mA and/or kV acco rding to patient size. COMPARISON: 01/19/2020 FINDINGS: Image quality: Excellent. ABDOMEN: Lung bases: Lung bases are clear. Heart size is normal. Solid organs: An enlarged, fatty liver is seen. No focal liver lesions are seen. The spleen demonstra logan normal size, without focal lesions. Gallbladder wall does not appear thickened. The gallbladder i s prominent in size. Biliary system is non dilated. No significant pancreatic abnormality is seen. No significant peripancreatic inflammatory change can be seen. No adrenal nodules. Kidneys demonstrate normal size and enhancement, without hydronephrosis. Peritoneum and bowel: The colon demonstrates generalized wall thickening, with a nodular appearance. This is seen involving the descending colon, transverse colon, descending colon and the sigmoid colo n. Minimal surrounding inflammatory changes are seen. No free air is seen to suggest perforation. No loculated abscess is seen. No dilated loops of small bowel can be seen. Nodes and vessels: No retroperitoneal or mesenteric adenopathy by size criteria. Aorta and inferior vena cava are normal in size. Miscellaneous: No ventral hernias. PELVIS: Genitourinary: Bladder wall thickness is normal. The uterus demonstrates an unremarkable appearance for age. No adnexal masses are seen. Miscellaneous: No inguinal hernias or adenopathy. Bones: No suspicious bony lesions. No vertebral body compression fractures. IMPRESSION: Abnormal colon, with nodular thickening seen throughout is course. Please correlate with potential infectious and inflammatory causes, including C. difficile colitis. Given the age of the p atient and the extent of the involvement, ischemic colitis is considered to be unlikely. A prominent gallbladder is seen, without additional abnormality seen by CT. The pancreas now demonstrates a normal appearance. Incidental note is made of: Enlarged, fatty liver. Reviewed by: Jaden Chavez MD on 05/05/2020 4:44 PM [facility]DT Approved by: Jaden Chavez MD on 05/05/2020 4:44 PM AKDT Station ID: [id number]
[2020-05-05] MEDS: MORPHINE 4 MG/ML VIAL IVP PRN (21:43)
[2020-05-05] MEDS: SODIUM CHLORIDE 0.9% 1,000 ML IV SCH (21:44)
[2020-05-05] MEDS: POTASSIUM CHLOR 10 MEQ/100 ML 10 MEQ/100 ML BAG IV SCH ×2 (21:55→22:57)
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
[2020-05-05] MEDS ORDERED: LORazepam 2 MG/ML VIAL IVP STA (22:55)
[2020-05-05] MEDS: NICOTINE 7 MG PATCH TOP SCH (23:20)
[2020-05-05] MEDS ORDERED: MAGNESIUM SULFATE 2 GRAM 2 GM/50 ML BAG IV ONE (23:22)
[2020-05-06] MEDS: POTASSIUM CHLOR 10 MEQ/100 ML 10 MEQ/100 ML BAG IV SCH ×8 (00:09→14:14)
[2020-05-06] MEDS: MORPHINE 4 MG/ML VIAL IVP PRN ×6 (00:09→22:30)
[2020-05-06] MEDS ORDERED: THIAMINE 100 MG/1 ML 2 ML MDV ONE (00:19)
[2020-05-06 04:59] LABS: BASOPHILS # (AUTO) 0.1 10^3/uL (0.0-0.1); BASOPHILS % (AUTO) 1.2 %; EOSINOPHILS # (AUTO) 0.1 10^3/uL (0.0-0.7); EOSINOPHILS % (AUTO) 1.5 %; HGB - HEMOGLOBIN 11.9 g/dL (12.0-16.0); LYMPHOCYTES # (AUTO) 2.4 10^3/uL (1.5-3.5); LYMPHOCYTES % (AUTO) 26.9 %; MEAN CORPUSCULAR HEMOGLOBIN 37.1 pg (27.0-31.0); MEAN CORPUSCULAR HGB CONC 35.5 g/dL (32.0-36.0); MEAN CORPUSCULAR VOLUME 104.4 fL (81.0-99.0); MEAN PLATELET VOLUME 10.1 fL (7.9-10.8); MONOCYTES # (AUTO) 0.4 10^3/uL (0.0-1.0); NEUTROPHILS # (AUTO) 5.9 10^3/uL (1.5-6.6); PLT - PLATELET COUNT 244 10^3/uL (130-450); RED BLOOD COUNT 3.21 10^6/uL (4.20-5.40); RED CELL DISTRIBUTION WIDTH 15.4 % (12.0-15.0); WHITE BLOOD COUNT 8.9 x10^3/uL (4.8-10.8)
[2020-05-06 05:09] LABS: INR 1.2 (0.8-1.2)
[2020-05-06 05:19] LABS: ALBUMIN 3.4 g/dL (3.2-5.5); ALBUMIN/GLOBULIN RATIO 1.1 (1.0-2.2); BILIRUBIN,TOTAL 9.2 mg/dL (0.2-1.0); CALCIUM 7.9 mg/dL (8.5-10.3); CREATININE 0.4 mg/dL (0.4-1.0); TOTAL PROTEIN 6.5 g/dL (6.7-8.2)
[2020-05-06] MEDS: SODIUM CHLORIDE 0.9% 1,000 ML IV SCH (06:17)
[2020-05-06 08:48] LABS: MAGNESIUM 2.7 mg/dL (1.7-2.8); PHOSPHORUS 1.4 mg/dL (2.5-4.6)
[2020-05-06] MEDS: LORazepam 2 MG/ML VIAL IVP PRN ×2 (08:48→16:31)
[2020-05-06] MEDS: NICOTINE 7 MG PATCH TOP SCH (08:50)
[2020-05-06 09:00] LABS: KETONES, SERUM (ACETEST) NEGATIVE (NEGATIVE)
[2020-05-06] MEDS ORDERED: MULTIVITAMIN 10 ML, THIAMINE INJ 100 MG, FOLIC ACID INJ 1 MG in SODIUM CHLORIDE 0.9% 1,... IV SCH (09:00)
--- NOTE | 2020-05-06 09:15 | PHARMACY PROGRESS NOTE ---
- Best Possible Medication History Admit Date and Time: 05/05/20 1803 Processed by: Pharmacy Medication History completed: Yes Patient Interview: Completed Secondary Source(s): Pharmacy records, Insurance records (PATIENT INTERVIEWED BY EMBOSSING TOOL SETTER. PATIENT CONFIRMS HOME MEDICATIONS. PATIENT HAS NOT BEEN TAKING HOME MEDICATIONS X1 WEEK DUE TO NAUSEA AND VOMITING ) As the person ultimately responsible for medication therapy, providers are able to order a medication from an existing home medication list in [facility] via the "Reconcile Routine" prior to Confirmation of that medication by underwriting support manager. Such practice is discouraged except when the physician, in their clinical judgment, deems that a medical need exists for a medication without regard to previous use.
--- NOTE | 2020-05-06 09:20 | Ultrasound Report ---
PROCEDURE: Abdomen Complete INDICATIONS: liver failure TECHNIQUE: Real-time scanning was performed of the abdominal and retroperitoneal organs, with image documentatio n. COMPARISON: CT abdomen and pelvis 05/05/2020. FINDINGS: Liver: Liver is enlarged measuring 22.2 cm in long axis. Liver is diffusely echogenic. No focal hepa tic mass lesions. Gallbladder: Gallbladder is slightly prominent. No gallstones. No pericholecystic fluid. No gallbladd er wall thickening with gallbladder wall measuring 1.8 mm. No sonographic Espinal sign. Biliary ducts: Intrahepatic bile ducts are non-dilated. Extrahepatic bile duct caliber measures 6.2 mm. Normal is 6-7 mm or less in diameter, or 10 mm or less post-cholecystectomy. Pancreas: Obscured by bowel gas. Spleen: Spleen is normal in size and homogeneous in echotexture. Kidneys: Kidneys are normal in size and echotexture. Right kidney measures 10.6 cm long; left kidne y measures 11.4 cm long. No hydronephrosis or nephrolithiasis. No solid masses. Aorta: Visualized aorta is normal in caliber at less than 3 cm. Iliacs: Obscured by bowel gas. IVC: Intrahepatic inferior vena cava is patent. Miscellaneous: No free abdominal fluid. IMPRESSION: 1. Hepatomegaly. Liver is diffusely echogenic which is typically related to fatty infiltration, howev er finding is nonspecific and other etiologies including hepatic cirrhosis can produce a similar appe arance. Please correlate with clinical and laboratory data. 2. No biliary tree dilatation. 3. No sonographic evidence of cholelithiasis or cholecystitis. Reviewed by: Rufina Billings MD, PhD on 05/06/2020 9:19 AM PDT Approved by: Rufina Billings MD, PhD on 05/06/2020 9:19 AM PDT Station ID: [id number]
[2020-05-06] MEDS: D5.45NS W/20 MEQ KCL 1,000 ML IV SCH ×2 (10:02→23:42)
[2020-05-06] MEDS: NEUTRA-PHOS 250 MG TABLET PO SCH ×2 (12:09→18:00)
--- NOTE | 2020-05-06 15:30 | PROVIDER PROGRESS NOTE ---
Assessment/Plan - Problem List (1) Liver failure without hepatic coma Qualifiers: Liver failure chronicity: acute Qualified Code(s): K72.00 - Acute and subacute hepatic failure without coma Assessment/Plan: Improved, patient's liver enzyme and total bili are all reduced. 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 Patient reported she still drinks alcohol but she state a she will stop and quit.Continue banana bag (2) Alcoholic pancreatitis Conclusion/Plan: Lipase is 99 today, Supportive care with IV fluids, antiemetics, pain medicine. start with clear diet, continue lab monitor (3) Hypokalemia Conclusion/Plan: supplement IV recheck in am (4) Alcohol dependence Conclusion/Plan: Patient is tacycardia in the improved, heart rate is 104. continue monitor carefully for high blood pressure, tachycardia, delirium. CIWA protocol will be used at that time. (5) Colitis Conclusion/Plan: Improved, patient had a small bowel movement that without diarrhea. There is no hematochezia or diarrhea. Patient had normal WBC, patient has no fever, patient does not complain abdominal pain now, Just diffuse colon wall thickening on CT scan. Continue to monitor closely for signs and symptoms of infection and then will add antibiotics. Consideration of outpatient colonoscopy as needed - Current Meds Current Meds: Current Medications Generic Name Dose Route Start Last Admin Trade Name Freq PRN Reason Stop Dose Admin Multivitamins 10 ml/ Thiamine 1,011.2 mls @ 100 mls/hr 05/06/20 09:00 0 05/06/20 13:52 HCl 100 mg/ Folic Acid 1 mg/ IV 100 mls/hr Sodium Chloride DAILY AL Administration Potassium Chloride/Dextrose/Sod Cl 1,000 mls @ 100 mls/hr 05/06/20 09:00 05/06/20 10:02 D5.45ns W/20 Meq Kcl IV 05/07/20 04:59 Not Given .Q10H AL Lorazepam 1 mg 05/05/20 22:52 05/06/20 08:48 Ativan Inj (Vial) IVP 1 mg Q2H PRN Administration CIWA >8 Protocol Morphine Sulfate 4 mg 05/05/20 21:23 05/06/20 12:50 Morphine IVP 4 mg Q2HR PRN Administration PAIN Nicotine 1 patch 05/05/20 22:52 05/06/20 08:50 Nicoderm TOP 1 patch DAILY AL Administration Sodium Phosphate 250 mg 05/06/20 12:00 05/06/20 12:09 K-Phos Neutral PO 250 mg TIDWM AL Administration - Lab Result Fish Bone Diagrams: 05/06/20 04:00 05/06/20 04:00 - Additional Planning My Orders: My Active Orders 05/06/20 09:00 D5.45ns W/20 Meq KCl 1,000 ml IV 100 mls/hr 05/06/20 Lunch Clear Liquid Diet [DIET] 05/06/20 12:00 Neutra-Phos [K-Phos Neutral] 250 mg PO TIDWM 05/06/20 12:11 Telemetry- [RC] Q4HR 05/06/20 15:15 AMMONIA [CHEM] Routine POTASSIUM [CHEM] Timed Subjective - Subjective Patient Reports: Feeling Better Objective Vital Signs: Vital Signs - 24 hr 05/05/20 05/05/20 05/05/20 17:16 18:38 19:26 Temperature 36.6 C 36.5 C Heart Rate 94 116 H Heart Rate [ 87 Brachial] Respiratory 16 16 Rate Blood Pressure 115/93 H 137/100 H Blood Pressure 146/98 H [Right Brachial artery] O2 Saturation 97 100 98 05/05/20 05/05/20 05/06/20 21:00 23:35 04:25 Temperature 34.7 C L 36.9 C 36.7 C Heart Rate Heart Rate [ 115 H 109 H 104 H Brachial] Respiratory 16 20 16 Rate Blood Pressure Blood Pressure 148/106 H 135/95 H 131/84 H [Right Brachial artery] O2 Saturation 97 98 96 05/06/20 05/06/20 08:00 12:50 Temperature 36.7 C 36.9 C Heart Rate Heart Rate [ 114 H 102 H Brachial] Respiratory 16 18 Rate Blood Pressure Blood Pressure 137/95 H 123/87 H [Right Brachial artery] O2 Saturation 96 97 Oxygen O2 Source Room air I&O (Last 24 Hrs): Intake and Output Totals x24h 05/04/20 05/05/20 05/06/20 23:59 23:59 23:59 Intake Total 1451 3060 Balance 1451 3060 General: Alert, Oriented x3, No acute distress HEENT: Atraumatic Neck: Supple Lymphatic: no adenopathy Neuro: Alert, Non Focal, Oriented Times 3 Cardiovascular: Normal S1, Normal S2 Respiratory: Chest non-tender, No respiratory distress Abdomen: Normal bowel sounds, No tenderness Extremities: Normal pulses - Results Results: Laboratory Results WBC 8.9 x10^3/uL (4.8-10.8) 05/06/20 04:00 RBC 3.21 10^6/uL (4.20-5.40) L 05/06/20 04:00 Hgb 11.9 g/dL (12.0-16.0) L 05/06/20 04:00 Hct 33.5 % (37.0-47.0) L 05/06/20 04:00 MCV 104.4 fL (81.0-99.0) H 05/06/20 04:00 MCH 37.1 pg (27.0-31.0) H 05/06/20 04:00 MCHC 35.5 g/dL (32.0-36.0) 05/06/20 04:00 RDW 15.4 % (12.0-15.0) H 05/06/20 04:00 Plt Count 244 10^3/uL (130-450) 05/06/20 04:00 MPV 10.1 fL (7.9-10.8) 05/06/20 04:00 Neut # (Auto) 5.9 10^3/uL (1.5-6.6) 05/06/20 04:00 Lymph # (Auto) 2.4 10^3/uL (1.5-3.5) 05/06/20 04:00 [place] # (Auto) 0.4 10^3/uL (0.0-1.0) 05/06/20 04:00 Eos # (Auto) 0.1 10^3/uL (0.0-0.7) 05/06/20 04:00 Baso # (Auto) 0.1 10^3/uL (0.0-0.1) 05/06/20 04:00 Absolute Nucleated RBC 0.02 x10^3/uL 05/06/20 04:00 Nucleated RBC % 0.2 /100WBC 05/06/20 04:00 PT 14.0 secs (9.9-12.6) H 05/06/20 04:00 INR 1.2 (0.8-1.2) 05/06/20 04:00 VBG pH 7.404 (7.31-7.41) 05/05/20 15: VBG pCO2 27.2 mmHg (41-51) L 05/05/20: VBG pO2 73.3 mmHg (25-47) H 05/05/20: VBG HCO3 16.6 mmol/L (23-28) L 05/05/20: VBG Total CO2 17.5 mmol/L (24-29) L 05/05/20: VBG O2 Saturation 94.1 % (60-80) H 05/05/20: VBG Base Excess -6.4 mmol/L (-2 - +2) L 05/05/20 15: Sodium 134 mmol/L (135-145) L 05/06/20 04:00 Potassium 2.8 mmol/L (3.5-5.0) L 05/06/20 04:00 Chloride 98 mmol/L (101-111) L 05/06/20 04:00 Carbon Dioxide 19 mmol/L (21-32) L 05/06/20 04:00 Anion Gap 17.0 (6-13) H 05/06/20 04:00 BUN 11 mg/dL (6-20) 05/06/20 04:00 Creatinine 0.4 mg/dL (0.4-1.0) 05/06/20 04:00 Estimated GFR (MDRD) 174 (>89) 05/06/20 04:00 Glucose 74 mg/dL (70-100) 05/06/20 04:00 Calcium 7.9 mg/dL (8.5-10.3) L 05/06/20 04:00 Phosphorus 1.4 mg/dL (2.5-4.6) L 05/06/20 04:00 Magnesium 2.7 mg/dL (1.7-2.8) 05/06/20 04:00 Total Bilirubin 9.2 mg/dL (0.2-1.0) H 05/06/20 04:00 AST 493 IU/L (10-42) H 05/06/20 04:00 ALT 158 IU/L (10-60) H 05/06/20 04:00 Alkaline Phosphatase 201 IU/L (42-121) H 05/06/20 04:00 Total Creatine Kinase 28 IU/L (22-269) 05/05/20 15:27 Total Protein 6.5 g/dL (6.7-8.2) L 05/06/20 04:00 Albumin 3.4 g/dL (3.2-5.5) 05/06/20 04:00 Globulin 3.1 g/dL (2.1-4.2) 05/06/20 04:00 Albumin/Globulin Ratio 1.1 (1.0-2.2) 05/06/20 04:00 Lipase 99 U/L (22-51) H 05/06/20 04:00 Ur Specific [place] >=1.030 (1.002-1.030) H 05/05/20 16:43 Urine HCG, Qual NEGATIVE 05/05/20 16:43 Salicylates < 6.0 mg/dL 05/05/20 15:27 Urine Opiates Screen POSITIVE (NEGATIVE) H 05/05/20 16:43 Ur Oxycodone Screen NEGATIVE (NEGATIVE) 05/05/20 16:43 Urine Methadone Screen NEGATIVE (NEGATIVE) 05/05/20 16:43 Ur Propoxyphene Screen NEGATIVE (NEGATIVE) 05/05/20 16:43 Acetaminophen < 10 ug/mL (10-30) L 05/05/20 15:27 Ur Barbiturates Screen NEGATIVE (NEGATIVE) 05/05/20 16:43 Ur Tricyclics Screen NEGATIVE (NEGATIVE) 05/05/20 16:43 Ur Phencyclidine Scrn NEGATIVE (NEGATIVE) 05/05/20 16:43 Ur Amphetamine Screen NEGATIVE (NEGATIVE) 05/05/20 16:43 U Methamphetamines Scrn NEGATIVE (NEGATIVE) 05/05/20 16:43 U Benzodiazepines Scrn POSITIVE (NEGATIVE) H 05/05/20 16:43 Urine Cocaine Screen NEGATIVE (NEGATIVE) 05/05/20 16:43 U Cannabinoids Screen POSITIVE (NEGATIVE) H 05/05/20 16:43 Ethyl Alcohol 124.1 mg/dL 05/05/20 15:27 Serum Ketones NEGATIVE (NEGATIVE) 05/06/20 04:00 ABX Reporting Has patient been on IV antibiotics over the past 48 hours?: No Current Medications - Current Medications Current Medications: Active Medications Multivitamins 10 ml/ Thiamine HCl 100 mg/ Folic Acid 1 mg/Sodium Chloride 1,011.2 mls @ 100 mls/hr IV DAILY [facility] Last Admin: 05/06/20 13:52 Dose: 100 mls/hr Documented by: Potassium Chloride/Dextrose/Sod Cl (D5.45ns W/20 Meq Kcl) 1,000 mls @ 100 mls/hr IV .Q10H [facility] Stop: 05/07/20 04:59 Last Admin: 05/06/20 10:02 Dose: Not Given Documented by: Lorazepam (Ativan Inj (Vial)) 1 mg IVP Q2H PRN; Protocol PRN Reason: CIWA >8 Last Admin: 05/06/20 08:48 Dose: 1 mg Documented by: Morphine Sulfate (Morphine) 4 mg IVP Q2HR PRN PRN Reason: PAIN Last Admin: 05/06/20 12:50 Dose: 4 mg Documented by: Nicotine (Nicoderm) 1 patch TOP DAILY [facility] Last Admin: 05/06/20 08:50 Dose: 1 patch Documented by: Sodium Phosphate (K-Phos Neutral) 250 mg PO TIDWM [facility] Last Admin: 05/06/20 12:09 Dose: 250 mg Documented by: Albuterol Sulfate [Albuterol Sulfate Hfa] 2 puffs IH Q4H PRN 05/06/20 Fluticasone [Flonase] 2 sprays BEN DAILY 05/06/20 cloNIDine [Catapres] 0.1 mg PO BID 05/06/20
[2020-05-06] MEDS ORDERED: ALBUTEROL NEB 2.5 MG/3 ML INH PRN (15:53)
[2020-05-06] MEDS ORDERED: oxyCODONE 5 MG TABLET PO PRN (15:54)
[2020-05-06] MEDS: cloNIDine 0.1 MG TABLET PO SCH (20:41)
[2020-05-07] MEDS: MORPHINE 4 MG/ML VIAL IVP PRN ×9 (01:33→23:54)
[2020-05-07 05:31] LABS: BASOPHILS # (AUTO) 0.1 10^3/uL (0.0-0.1); BASOPHILS % (AUTO) 1.6 %; EOSINOPHILS # (AUTO) 0.2 10^3/uL (0.0-0.7); EOSINOPHILS % (AUTO) 2.9 %; HGB - HEMOGLOBIN 9.8 g/dL (12.0-16.0); LYMPHOCYTES # (AUTO) 2.2 10^3/uL (1.5-3.5); MEAN CORPUSCULAR HEMOGLOBIN 36.4 pg (27.0-31.0); MEAN CORPUSCULAR HGB CONC 34.3 g/dL (32.0-36.0); MEAN CORPUSCULAR VOLUME 106.3 fL (81.0-99.0); MEAN PLATELET VOLUME 10.3 fL (7.9-10.8); MONOCYTES # (AUTO) 0.3 10^3/uL (0.0-1.0); MONOCYTES % (AUTO) 4.4 %; NEUTROPHILS # (AUTO) 3.3 10^3/uL (1.5-6.6); NEUTROPHILS % (AUTO) 54.4 %; PLT - PLATELET COUNT 200 10^3/uL (130-450); RED BLOOD COUNT 2.69 10^6/uL (4.20-5.40); RED CELL DISTRIBUTION WIDTH 15.3 % (12.0-15.0); WHITE BLOOD COUNT 6.1 x10^3/uL (4.8-10.8)
[2020-05-07 05:46] LABS: ALBUMIN/GLOBULIN RATIO 1.2 (1.0-2.2); BILIRUBIN,TOTAL 8.8 mg/dL (0.2-1.0); CALCIUM 8.2 mg/dL (8.5-10.3); CREATININE 0.4 mg/dL (0.4-1.0); TOTAL PROTEIN 5.6 g/dL (6.7-8.2)
[2020-05-07] MEDS ORDERED: POTASSIUM CHLORIDE 20 MEQ TABLET PO ONE (07:56)
[2020-05-07] MEDS ORDERED: FLUTICASONE NASAL SPRAY NAS SCH (09:00)
[2020-05-07] MEDS: NEUTRA-PHOS 250 MG TABLET PO SCH ×3 (09:10→16:34)
[2020-05-07] MEDS: chlordiazePOXIDE 25 MG CAPSULE PO PRN ×2 (09:12→22:25)
[2020-05-07] MEDS: PRENATAL VITAMIN TABLET PO SCH ×2 (09:12→09:20)
[2020-05-07] MEDS: cloNIDine 0.1 MG TABLET PO SCH ×2 (09:12→21:05)
[2020-05-07] MEDS: NICOTINE 7 MG PATCH TOP SCH (09:12)
[2020-05-07] MEDS: POTASSIUM CHLOR 10 MEQ/100 ML 10 MEQ/100 ML BAG IV SCH ×2 (09:20→10:38)
[2020-05-07] MEDS: THIAMINE 100 MG TABLET PO SCH (09:24)
[2020-05-07 13:53] LABS: HEPATITIS A IGM NON-REACTIVE (NON-REACTIVE); HEPATITIS B SURFACE ANTIGEN NON-REACTIVE (NON-REACTIVE); HEPATITIS C ANTIBODY NON-REACTIVE (NON-REACTIVE)
--- NOTE | 2020-05-07 16:47 | PROVIDER PROGRESS NOTE ---
Assessment/Plan - Problem List (1) Liver failure without hepatic coma Qualifiers: Liver failure chronicity: acute Qualified Code(s): K72.00 - Acute and subacute hepatic failure without coma Assessment/Plan: 92, Patient's liver enzymes still high, almost the same as yesterday. But the patient request to eat more, has appetite on today. Advance diet as tolerated. 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 Hold hepatic toxic agent. Consult with social work to help patient quit alcoholic Improved, patient's liver enzyme and total bili are all reduced. Patient request diet, alcohol use is likely the cause of her liver failure.Order clear diet for patient.Continue laboratory mechanical technician. Patient reported she still drinks alcohol but she state a she will stop and quit.Continue banana bag (2) Alcoholic pancreatitis Conclusion/Plan: Slightly improved, lipase is 66 down from yesterday 99. Continue intravenous IV fluids, continue laboratory mechanical technician Lipase is 99 today, Supportive care with IV fluids, antiemetics, pain medicine. start with clear diet, continue lab monitor (3) Hypokalemia Conclusion/Plan: supplement IV recheck in am (4) Alcohol dependence Conclusion/Plan: 92,Patient tachycardia is controlled, HR 96.Continue CIWA protocol. Patient is tacycardia in the improved, heart rate is 104. continue monitor carefully for high blood pressure, tachycardia, delirium. CIWA protocol will be used at that time. (5) Colitis Conclusion/Plan: Improved, patient had a small bowel movement that without diarrhea. There is no hematochezia or diarrhea. Patient had normal WBC, patient has no fever, patient does not complain abdominal pain now, Just diffuse colon wall thickening on CT scan. Continue to monitor closely for signs and symptoms of infection and then will add antibiotics. Consideration of outpatient colonoscopy as needed - Current Meds Current Meds: Current Medications Generic Name Dose Route Start Last Admin Trade Name Freq PRN Reason Stop Dose Admin Chlordiazepoxide HCl 25 mg 05/06/20 15:53 05/07/20 09:12 Librium PO 25 mg Q6H PRN Administration Alcohol Withdrawal Clonidine HCl 0.1 mg 05/06/20 21:00 05/07/20 09:12 Catapres PO 0.1 mg BID AL Administration Lorazepam 1 mg 05/05/20 22:52 05/06/20 16:31 Ativan Inj (Vial) IVP 1 mg Q2H PRN Administration CIWA >8 Protocol Morphine Sulfate 4 mg 05/05/20 21:23 05/07/20 14:56 Morphine IVP 4 mg Q2HR PRN Administration PAIN Nicotine 1 patch 05/05/20 22:52 05/07/20 09:12 Nicoderm TOP 1 patch DAILY AL Administration Multivit/Folic Acid/Iron 1 tab 05/07/20 08:00 05/07/20 09:20 Trinatal Rx 1 PO 1 tab DAILYWM AL Administration Sodium Phosphate 250 mg 05/06/20 12:00 05/07/20 16:34 K-Phos Neutral PO 250 mg TIDWM AL Administration Thiamine HCl 100 mg 05/07/20 09:00 05/07/20 09:24 Vitamin B-1 PO 100 mg DAILY AL Administration - Lab Result Fish Bone Diagrams: 05/07/20 04:45 05/07/20 04:45 - Additional Planning My Orders: My Active Orders 05/06/20 15:53 Nebulizer/MDI Tx. [RC] .q4prn Resp Teach Nebulizer/MDI [RC] .ONCE Albuterol 2.5 mg INH RTQ4H PRN chlordiazePOXIDE [Librium] 25 mg PO Q6H PRN 05/06/20 16:47 Ondansetron Inj [Zofran Inj] 4 mg IVP Q6HR PRN 05/06/20 21:00 cloNIDine [Catapres] 0.1 mg PO BID 05/07/20 Breakfast Full Liquid Diet [DIET] 05/07/20 08:00 Vitamin [Trinatal Rx 1] 1 tab PO DAILYWM 05/07/20 09:00 Thiamine [Vitamin B-1] 100 mg PO DAILY 05/08/20 05:00 AMMONIA [CHEM] DAILYLAB PHOSPHORUS [CHEM] DAILYLAB 05/09/20 05:00 AMMONIA [CHEM] DAILYLAB 05/10/20 05:00 AMMONIA [CHEM] DAILYLAB Subjective - Subjective Patient Reports: Feeling Better Objective Vital Signs: Vital Signs - 24 hr 05/06/20 05/06/20 05/07/20 20:33 23:43 04:35 Temperature 36.9 C 37.0 C 37.0 C Heart Rate [ 100 102 H 90 Brachial] Respiratory 16 16 16 Rate Blood Pressure 125/89 H 115/78 130/88 H [Left Brachial artery] O2 Saturation 97 98 97 05/07/20 05/07/20 05/07/20 07:00 13:00 16:28 Temperature 36.6 C 36.7 C 36.8 C Heart Rate [ 104 H 95 96 Brachial] Respiratory 18 17 18 Rate Blood Pressure 124/86 H 96/67 107/65 [Left Brachial artery] O2 Saturation 96 97 96 Oxygen O2 Source Room air I&O (Last 24 Hrs): Intake and Output Totals x24h 05/05/20 05/06/20 05/07/20 23:59 23:59 23:59 Intake Total 1451 4411.2 1400 Output Total 1450 Balance 1451 4411.2 -50 General: Alert, Oriented x3, No acute distress HEENT: Atraumatic Neck: Supple Lymphatic: no adenopathy Neuro: Alert, Non Focal, Oriented Times 3 Cardiovascular: Regular rate, Normal S1, Normal S2 Respiratory: Chest non-tender, No respiratory distress Extremities: Normal pulses - Results Results: Laboratory Results WBC 6.1 x10^3/uL (4.8-10.8) 05/07/20 04:45 RBC 2.69 10^6/uL (4.20-5.40) L 05/07/20 04:45 Hgb 9.8 g/dL (12.0-16.0) L 05/07/20 04:45 Hct 28.6 % (37.0-47.0) L 05/07/20 04:45 MCV 106.3 fL (81.0-99.0) H 05/07/20 04:45 MCH 36.4 pg (27.0-31.0) H 05/07/20 04:45 MCHC 34.3 g/dL (32.0-36.0) 05/07/20 04:45 RDW 15.3 % (12.0-15.0) H 05/07/20 04:45 Plt Count 200 10^3/uL (130-450) 05/07/20 04:45 MPV 10.3 fL (7.9-10.8) 05/07/20 04:45 Neut # (Auto) 3.3 10^3/uL (1.5-6.6) 05/07/20 04:45 Lymph # (Auto) 2.2 10^3/uL (1.5-3.5) 05/07/20 04:45 [place] # (Auto) 0.3 10^3/uL (0.0-1.0) 05/07/20 04:45 Eos # (Auto) 0.2 10^3/uL (0.0-0.7) 05/07/20 04:45 Baso # (Auto) 0.1 10^3/uL (0.0-0.1) 05/07/20 04:45 Absolute Nucleated RBC 0.00 x10^3/uL 05/07/20 04:45 Nucleated RBC % 0.0 /100WBC 05/07/20 04:45 PT 14.0 secs (9.9-12.6) H 05/06/20 04:00 INR 1.2 (0.8-1.2) 05/06/20 04:00 VBG pH 7.404 (7.31-7.41) 05/05/20 15:27 VBG pCO2 27.2 mmHg (41-51) L 05/05/20 15:27 VBG pO2 73.3 mmHg (25-47) H 05/05/20 15:27 VBG HCO3 16.6 mmol/L (23-28) L 05/05/20 15:27 VBG Total CO2 17.5 mmol/L (24-29) L 05/05/20 15:27 VBG O2 Saturation 94.1 % (60-80) H 05/05/20 15:27 VBG Base Excess -6.4 mmol/L (-2 - +2) L 05/05/20 15:27 Sodium 137 mmol/L (135-145) 05/07/20 04:45 Potassium 3.0 mmol/L (3.5-5.0) L 05/07/20 04:45 Chloride 102 mmol/L (101-111) 05/07/20 04:45 Carbon Dioxide 23 mmol/L (21-32) 05/07/20 04:45 Anion Gap 12.0 (6-13) 05/07/20 04:45 BUN 9 mg/dL (6-20) 05/07/20 04:45 Creatinine 0.4 mg/dL (0.4-1.0) 05/07/20 04:45 Estimated GFR (MDRD) 174 (>89) 05/07/20 04:45 Glucose 82 mg/dL (70-100) 05/07/20 04:45 Calcium 8.2 mg/dL (8.5-10.3) L 05/07/20 04:45 Phosphorus 1.4 mg/dL (2.5-4.6) L 05/07/20 04:45 Magnesium 2.7 mg/dL (1.7-2.8) 05/06/20 04:00 Total Bilirubin 8.8 mg/dL (0.2-1.0) H 05/07/20 04:45 AST 627 IU/L (10-42) H 05/07/20 04:45 ALT 176 IU/L (10-60) H 05/07/20 04:45 Alkaline Phosphatase 214 IU/L (42-121) H 05/07/20 04:45 Ammonia 38.3 umol/L (7-35) H 05/07/20 08:53 Total Creatine Kinase 28 IU/L (22-269) 05/05/20 15:27 Total Protein 5.6 g/dL (6.7-8.2) L 05/07/20 04:45 Albumin 3.0 g/dL (3.2-5.5) L 05/07/20 04:45 Globulin 2.6 g/dL (2.1-4.2) 05/07/20 04:45 Albumin/Globulin Ratio 1.2 (1.0-2.2) 05/07/20 04:45 Lipase 64 U/L (22-51) H 05/07/20 04:45 Ur Specific [place] >=1.030 (1.002-1.030) H 05/05/20 16:43 Urine HCG, Qual NEGATIVE 05/05/20 16:43 Salicylates < 6.0 mg/dL 05/05/20 15:27 Urine Opiates Screen POSITIVE (NEGATIVE) H 05/05/20 16:43 Ur Oxycodone Screen NEGATIVE (NEGATIVE) 05/05/20 16:43 Urine Methadone Screen NEGATIVE (NEGATIVE) 05/05/20 16:43 Ur Propoxyphene Screen NEGATIVE (NEGATIVE) 05/05/20 16:43 Acetaminophen < 10 ug/mL (10-30) L 05/05/20 15:27 Ur Barbiturates Screen NEGATIVE (NEGATIVE) 05/05/20 16:43 Ur Tricyclics Screen NEGATIVE (NEGATIVE) 05/05/20 16:43 Ur Phencyclidine Scrn NEGATIVE (NEGATIVE) 05/05/20 16:43 Ur Amphetamine Screen NEGATIVE (NEGATIVE) 05/05/20 16:43 U Methamphetamines Scrn NEGATIVE (NEGATIVE) 05/05/20 16:43 U Benzodiazepines Scrn POSITIVE (NEGATIVE) H 05/05/20 16:43 Urine Cocaine Screen NEGATIVE (NEGATIVE) 05/05/20 16:43 U Cannabinoids Screen POSITIVE (NEGATIVE) H 05/05/20 16:43 Ethyl Alcohol 124.1 mg/dL 05/05/20 15:27 Serum Ketones NEGATIVE (NEGATIVE) 05/06/20 04:00 Hepatitis A IgM Ab NON-REACTIVE (NON-REACTIVE) 05/06/20 04:00 Hep Bs Antigen NON-REACTIVE (NON-REACTIVE) 05/06/20 04:00 Hep B Core IgM Ab NON-REACTIVE (NON-REACTIVE) 05/06/20 04:00 Hepatitis C Antibody NON-REACTIVE (NON-REACTIVE) 05/06/20 04:00 Hep C Ab Signal/Cutoff 0.00 (<1.00) 05/06/20 04:00 ABX Reporting Has patient been on IV antibiotics over the past 48 hours?: No Current Medications - Current Medications Current Medications: Active Medications Albuterol () 2.5 mg INH RTQ4H PRN PRN Reason: Wheezing Chlordiazepoxide HCl (Librium) 25 mg PO Q6H PRN PRN Reason: Alcohol Withdrawal Last Admin: 05/07/20 09:12 Dose: 25 mg Documented by: Clonidine HCl (Catapres) 0.1 mg PO BID AL Last Admin: 05/07/20 09:12 Dose: 0.1 mg Documented by: Sodium Chloride (Normal Saline 0.9%) 1,000 mls @ 100 mls/hr IV .Q10H AL Stop: 05/08/20 13:59 Lorazepam (Ativan Inj (Vial)) 1 mg IVP Q2H PRN; Protocol PRN Reason: CIWA >8 Last Admin: 05/06/20 16:31 Dose: 1 mg Documented by: Morphine Sulfate (Morphine) 4 mg IVP Q2HR PRN PRN Reason: PAIN Last Admin: 05/07/20 14:56 Dose: 4 mg Documented by: Nicotine (Nicoderm) 1 patch TOP DAILY AL Last Admin: 05/07/20 09:12 Dose: 1 patch Documented by: Ondansetron HCl (Zofran Inj) 4 mg IVP Q6HR PRN PRN Reason: Nausea / Vomiting Multivit/Folic Acid/Iron (Trinatal Rx 1) 1 tab PO DAILYWM [facility] Last Admin: 05/07/20 09:20 Dose: 1 tab Documented by: Sodium Phosphate (K-Phos Neutral) 250 mg PO TIDWM [facility] Last Admin: 05/07/20 16:34 Dose: 250 mg Documented by: Thiamine HCl (Vitamin B-1) 100 mg PO DAILY [facility] Last Admin: 05/07/20 09:24 Dose: 100 mg Documented by: Albuterol Sulfate [Albuterol Sulfate Hfa] 2 puffs IH Q4H PRN 05/06/20 Fluticasone [Flonase] 2 sprays BEN DAILY 05/06/20 cloNIDine [Catapres] 0.1 mg PO BID 05/06/20
[2020-05-07] MEDS: SODIUM CHLORIDE 0.9% 1,000 ML IV SCH (18:09)
[2020-05-08] MEDS: MORPHINE 4 MG/ML VIAL IVP PRN ×8 (01:51→21:07)
[2020-05-08] MEDS: SODIUM CHLORIDE 0.9% 1,000 ML IV SCH (03:48)
[2020-05-08] MEDS: chlordiazePOXIDE 25 MG CAPSULE PO PRN ×3 (05:10→17:15)
[2020-05-08 05:18] LABS: BASOPHILS # (AUTO) 0.1 10^3/uL (0.0-0.1); BASOPHILS % (AUTO) 1.5 %; EOSINOPHILS # (AUTO) 0.3 10^3/uL (0.0-0.7); HGB - HEMOGLOBIN 9.3 g/dL (12.0-16.0); LYMPHOCYTES # (AUTO) 2.1 10^3/uL (1.5-3.5); LYMPHOCYTES % (AUTO) 39.9 %; MEAN CORPUSCULAR HEMOGLOBIN 36.8 pg (27.0-31.0); MEAN CORPUSCULAR VOLUME 105.1 fL (81.0-99.0); MEAN PLATELET VOLUME 10.4 fL (7.9-10.8); MONOCYTES # (AUTO) 0.3 10^3/uL (0.0-1.0); NEUTROPHILS # (AUTO) 2.6 10^3/uL (1.5-6.6); PLT - PLATELET COUNT 197 10^3/uL (130-450); RED BLOOD COUNT 2.53 10^6/uL (4.20-5.40); RED CELL DISTRIBUTION WIDTH 15.2 % (12.0-15.0); WHITE BLOOD COUNT 5.4 x10^3/uL (4.8-10.8)
[2020-05-08 05:45] LABS: ALBUMIN 2.6 g/dL (3.2-5.5); ALBUMIN/GLOBULIN RATIO 1.1 (1.0-2.2); ALKALINE PHOSPHATASE 165 IU/L (42-121); ALT ALANINE AMINOTRANSFERASE 142 IU/L (10-60); AST ASPARTATE AMINOTRANSFERASE 352 IU/L (10-42); BUN - BLOOD UREA NITROGEN < 5 mg/dL (6-20); CALCIUM 8.2 mg/dL (8.5-10.3); CARBON DIOXIDE - CO2 25 mmol/L (21-32); CHLORIDE 106 mmol/L (101-111); CREATININE 0.4 mg/dL (0.4-1.0); GLUCOSE 93 mg/dL (70-100); LIPASE 49 U/L (22-51); PHOSPHORUS 2.8 mg/dL (2.5-4.6); SODIUM 138 mmol/L (135-145); TOTAL PROTEIN 4.9 g/dL (6.7-8.2)
[2020-05-08] MEDS ORDERED: POTASSIUM CHLORIDE 20 MEQ TABLET PO ONE (07:44)
[2020-05-08] MEDS: ONDANSETRON 4 MG/2 ML VIAL IVP PRN ×3 (08:52→17:08)
[2020-05-08] MEDS: NICOTINE 7 MG PATCH TOP SCH (09:21)
[2020-05-08] MEDS: NEUTRA-PHOS 250 MG TABLET PO SCH ×3 (09:22→17:08)
[2020-05-08] MEDS: cloNIDine 0.1 MG TABLET PO SCH ×2 (09:22→21:06)
[2020-05-08] MEDS: THIAMINE 100 MG TABLET PO SCH (09:23)
[2020-05-08] MEDS: POTASSIUM CHLOR 10 MEQ/100 ML 10 MEQ/100 ML BAG IV SCH ×4 (09:33→13:02)
--- NOTE | 2020-05-08 13:43 | PROVIDER PROGRESS NOTE ---
Assessment/Plan - Problem List (1) Liver failure without hepatic coma Qualifiers: Liver failure chronicity: acute Qualified Code(s): K72.00 - Acute and subacute hepatic failure without coma Assessment/Plan: 93,Patient's liver enzyme trended down significantly, Patient reported she feel better and request advance her diet. 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 92, Patient's liver enzymes still high, almost the same as yesterday. But the patient request to eat more, has appetite on today. Advance diet as tolerated. 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 Hold hepatic toxic agent. Consult with social work to help patient quit alcoholic Improved, patient's liver enzyme and total bili are all reduced. 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 Patient reported she still drinks alcohol but she state a she will stop and quit.Continue banana bag (2) Alcoholic pancreatitis Conclusion/Plan: 93, lipase is normal, pt request advance diet, Slightly improved, lipase is 66 down from yesterday 99. Continue intravenous IV fluids, continue tutorial laboratory supervisor Lipase is 99 today, Supportive care with IV fluids, antiemetics, pain medicine. start with clear diet, continue lab monitor (3) Hypokalemia Conclusion/Plan: supplement IV recheck in am (4) Alcohol dependence Conclusion/Plan: 92,Patient tachycardia is controlled, HR 96.Continue CIWA protocol. Patient is tacycardia in the improved, heart rate is 104. continue monitor carefully for high blood pressure, tachycardia, delirium. CIWA protocol will be used at that time. (5) Colitis Conclusion/Plan: /,Patient denies abdominal pain, patient has no diarrhea, normal WBC, patient has no fever, not antibiotics indicated. advise pt followup with GI as out-pt for colonoscopy. Improved, patient had a small bowel movement that without diarrhea. There is no hematochezia or diarrhea. Patient had normal WBC, patient has no fever, patient does not complain abdominal pain now, Just diffuse colon wall thickening on CT scan. Continue to monitor closely for signs and symptoms of infection and then will add antibiotics. Consideration of outpatient colonoscopy as needed - Current Meds Current Meds: Current Medications Generic Name Dose Route Start Last Admin Trade Name Freq PRN Reason Stop Dose Admin Chlordiazepoxide HCl 25 mg 05/06/20 15:53 05/08/20 11:39 Librium PO 25 mg Q6H PRN Administration Alcohol Withdrawal Clonidine HCl 0.1 mg 05/06/20 21:00 05/08/20 09:22 Catapres PO 0.1 mg BID AL Administration Sodium Chloride 1,000 mls @ 100 mls/hr 05/07/20 18:00 05/08/20 03:48 Normal Saline 0.9% IV 05/08/20 13:59 100 mls/hr .Q10H AL Administration Lorazepam 1 mg 05/05/20 22:52 05/06/20 16:31 Ativan Inj (Vial) IVP 1 mg Q2H PRN Administration CIWA >8 Protocol Morphine Sulfate 4 mg 05/05/20 21:23 05/08/20 11:47 Morphine IVP 4 mg Q2HR PRN Administration PAIN Nicotine 1 patch 05/05/20 22:52 05/08/20 09:21 Nicoderm TOP 1 patch DAILY AL Administration Ondansetron HCl 4 mg 05/06/20 16:47 05/08/20 09:21 Zofran Inj IVP 4 mg Q6HR PRN Administration Nausea / Vomiting Multivit/Folic Acid/Iron 1 tab 05/07/20 08:00 05/07/20 09:20 Trinatal Rx 1 PO 1 tab DAILYWM AL Administration Sodium Phosphate 250 mg 05/06/20 12:00 05/08/20 11:41 K-Phos Neutral PO 250 mg TIDWM AL Administration Thiamine HCl 100 mg 05/07/20 09:00 05/08/20 09:23 Vitamin B-1 PO 100 mg DAILY AL Administration - Lab Result Fish Bone Diagrams: 05/08/20 04:55 05/08/20 04:55 - Additional Planning My Orders: My Active Orders 05/07/20 18:00 Sodium Chloride 0.9% [Normal Saline 0.9%] 1,000 ml IV 100 mls/hr 05/08/20 Breakfast Soft (Low Fiber) Diet [DIET] 05/09/20 05:00 AMMONIA [CHEM] DAILYLAB 05/10/20 05:00 AMMONIA [CHEM] DAILYLAB Subjective - Subjective Patient Reports: Feeling Better Objective Vital Signs: Vital Signs - 24 hr 0905/07/20 05/07/20 16:28 20:48 23:55 Temperature 36.8 C 36.7 C 36.9 C Heart Rate [ 96 97 99 Brachial] Respiratory 18 18 16 Rate Blood Pressure 107/65 117/84 H 129/84 H [Left Brachial artery] O2 Saturation 96 98 99 05/08/20 05/08/20 05/08/20 03:51 08:00 12:45 Temperature 37.0 C 36.7 C 36.3 C L Heart Rate [ 98 97 100 Brachial] Respiratory 18 20 16 Rate Blood Pressure 119/84 H 111/79 112/72 [Left Brachial artery] O2 Saturation 96 99 99 Oxygen O2 Source Room air I&O (Last 24 Hrs): Intake and Output Totals x24h 05/06/20 05/07/20 05/08/20 23:59 23:59 23:59 Intake Total 4411.2 1890 1365 Output Total 1950 1075 Balance 4411.2 -60 290 General: Alert, Oriented x3, No acute distress HEENT: Atraumatic Neck: Supple Lymphatic: no adenopathy Neuro: Alert, Non Focal, Oriented Times 3 Cardiovascular: Regular rate, Normal S1, Normal S2 Respiratory: Chest non-tender, No respiratory distress Extremities: Normal pulses - Results Results: Laboratory Results WBC 5.4 x10^3/uL (4.8-10.8) 05/08/20 04:55 RBC 2.53 10^6/uL (4.20-5.40) L 05/08/20 04:55 Hgb 9.3 g/dL (12.0-16.0) L 05/08/20 04:55 Hct 26.6 % (37.0-47.0) L 05/08/20 04:55 MCV 105.1 fL (81.0-99.0) H 05/08/20 04:55 MCH 36.8 pg (27.0-31.0) H 05/08/20 04:55 MCHC 35.0 g/dL (32.0-36.0) 05/08/20 04:55 RDW 15.2 % (12.0-15.0) H 05/08/20 04:55 Plt Count 197 10^3/uL (130-450) 05/08/20 04:55 MPV 10.4 fL (7.9-10.8) 05/08/20 04:55 Neut # (Auto) 2.6 10^3/uL (1.5-6.6) 05/08/20 04:55 Lymph # (Auto) 2.1 10^3/uL (1.5-3.5) 05/08/20 04:55 [facility] # (Auto) 0.3 10^3/uL (0.0-1.0) 05/08/20 04:55 Eos # (Auto) 0.3 10^3/uL (0.0-0.7) 05/08/20 04:55 Baso # (Auto) 0.1 10^3/uL (0.0-0.1) 05/08/20 04:55 Absolute Nucleated RBC 0.00 x10^3/uL 05/08/20 04:55 Nucleated RBC % 0.0 /100WBC 05/08/20 04:55 PT 14.0 secs (9.9-12.6) H 05/06/20 04:00 INR 1.2 (0.8-1.2) 05/06/20 04:00 VBG pH 7.404 (7.31-7.41) 05/05/20 15:27 VBG pCO2 27.2 mmHg (41-51) L 05/05/20 15:27 VBG pO2 73.3 mmHg (25-47) H 05/05/20 15:27 VBG HCO3 16.6 mmol/L (23-28) L 05/05/20 15:27 VBG Total CO2 17.5 mmol/L (24-29) L 05/05/20 15:27 VBG O2 Saturation 94.1 % (60-80) H 05/05/20 15:27 VBG Base Excess -6.4 mmol/L (-2 - +2) L 05/05/20 15:27 Sodium 138 mmol/L (135-145) 05/08/20 04:55 Potassium 3.0 mmol/L (3.5-5.0) L 05/08/20 04:55 Chloride 106 mmol/L (101-111) 05/08/20 04:55 Carbon Dioxide 25 mmol/L (21-32) 05/08/20 04:55 Anion Gap 7.0 (6-13) 05/08/20 04:55 BUN < 5 mg/dL (6-20) L 05/08/20 04:55 Creatinine 0.4 mg/dL (0.4-1.0) 05/08/20 04:55 Estimated GFR (MDRD) 174 (>89) 05/08/20 04:55 Glucose 93 mg/dL (70-100) 05/08/20 04:55 POC Whole Bld Glucose 103 mg/dL (70 - 100) H 05/08/20 11:15 Calcium 8.2 mg/dL (8.5-10.3) L 05/08/20 04:55 Phosphorus 2.8 mg/dL (2.5-4.6) 05/08/20 04:55 Magnesium 2.7 mg/dL (1.7-2.8) 05/06/20 04:00 Total Bilirubin 7.0 mg/dL (0.2-1.0) H 05/08/20 04:55 AST 352 IU/L (10-42) H 05/08/20 04:55 ALT 142 IU/L (10-60) H 05/08/20 04:55 Alkaline Phosphatase 165 IU/L (42-121) H 05/08/20 04:55 Ammonia 30.7 umol/L (7-35) 05/08/20 04:55 Total Creatine Kinase 28 IU/L (22-269) 05/05/20 15:27 Total Protein 4.9 g/dL (6.7-8.2) L 05/08/20 04:55 Albumin 2.6 g/dL (3.2-5.5) L 05/08/20 04:55 Globulin 2.3 g/dL (2.1-4.2) 05/08/20 04:55 Albumin/Globulin Ratio 1.1 (1.0-2.2) 05/08/20 04:55 Lipase 49 U/L (22-51) 05/08/20 04:55 Ur Specific [place] >=1.030 (1.002-1.030) H 05/05/20 16:43 Urine HCG, Qual NEGATIVE 05/05/20 16:43 Salicylates < 6.0 mg/dL 05/05/20 15:27 Urine Opiates Screen POSITIVE (NEGATIVE) H 05/05/20 16:43 Ur Oxycodone Screen NEGATIVE (NEGATIVE) 05/05/20 16:43 Urine Methadone Screen NEGATIVE (NEGATIVE) 05/05/20 16:43 Ur Propoxyphene Screen NEGATIVE (NEGATIVE) 05/05/20 16:43 Acetaminophen < 10 ug/mL (10-30) L 05/05/20 15:27 Ur Barbiturates Screen NEGATIVE (NEGATIVE) 05/05/20 16:43 Ur Tricyclics Screen NEGATIVE (NEGATIVE) 05/05/20 16:43 Ur Phencyclidine Scrn NEGATIVE (NEGATIVE) 05/05/20 16:43 Ur Amphetamine Screen NEGATIVE (NEGATIVE) 05/05/20 16:43 U Methamphetamines Scrn NEGATIVE (NEGATIVE) 05/05/20 16:43 U Benzodiazepines Scrn POSITIVE (NEGATIVE) H 05/05/20 16:43 Urine Cocaine Screen NEGATIVE (NEGATIVE) 05/05/20 16:43 U Cannabinoids Screen POSITIVE (NEGATIVE) H 05/05/20 16:43 Ethyl Alcohol 124.1 mg/dL 05/05/20 15:27 Serum Ketones NEGATIVE (NEGATIVE) 05/06/20 04:00 Hepatitis A IgM Ab NON-REACTIVE (NON-REACTIVE) 05/06/20 04:00 Hep Bs Antigen NON-REACTIVE (NON-REACTIVE) 05/06/20 04:00 Hep B Core IgM Ab NON-REACTIVE (NON-REACTIVE) 05/06/20 04:00 Hepatitis C Antibody NON-REACTIVE (NON-REACTIVE) 05/06/20 04:00 Hep C Ab Signal/Cutoff 0.00 (<1.00) 05/06/20 04:00 ABX Reporting Has patient been on IV antibiotics over the past 48 hours?: No Current Medications - Current Medications Current Medications: Active Medications Albuterol () 2.5 mg INH RTQ4H PRN PRN Reason: Wheezing Chlordiazepoxide HCl (Librium) 25 mg PO Q6H PRN PRN Reason: Alcohol Withdrawal Last Admin: 05/08/20 11:39 Dose: 25 mg Documented by: Clonidine HCl (Catapres) 0.1 mg PO BID AL Last Admin: 05/08/20 09:22 Dose: 0.1 mg Documented by: Lorazepam (Ativan Inj (Vial)) 1 mg IVP Q2H PRN; Protocol PRN Reason: CIWA >8 Last Admin: 05/06/20 16:31 Dose: 1 mg Documented by: Morphine Sulfate (Morphine) 4 mg IVP Q2HR PRN PRN Reason: PAIN Last Admin: 05/08/20 11:47 Dose: 4 mg Documented by: Nicotine (Nicoderm) 1 patch TOP DAILY [facility] Last Admin: 05/08/20 09:21 Dose: 1 patch Documented by: Ondansetron HCl (Zofran Inj) 4 mg IVP Q6HR PRN PRN Reason: Nausea / Vomiting Last Admin: 05/08/20 09:21 Dose: 4 mg Documented by: Multivit/Folic Acid/Iron (Trinatal Rx 1) 1 tab PO DAILYWM [facility] Last Admin: 05/07/20 09:20 Dose: 1 tab Documented by: Sodium Phosphate (K-Phos Neutral) 250 mg PO TIDWM [facility] Last Admin: 05/08/20 11:41 Dose: 250 mg Documented by: Thiamine HCl (Vitamin B-1) 100 mg PO DAILY [facility] Last Admin: 05/08/20 09:23 Dose: 100 mg Documented by: Albuterol Sulfate [Albuterol Sulfate Hfa] 2 puffs IH Q4H PRN 05/06/20 Fluticasone [Flonase] 2 sprays BEN DAILY 05/06/20 cloNIDine [Catapres] 0.1 mg PO BID 05/06/20
[2020-05-09] MEDS: MORPHINE 4 MG/ML VIAL IVP PRN ×3 (00:53→11:08)
[2020-05-09] MEDS: chlordiazePOXIDE 25 MG CAPSULE PO PRN (00:54)
[2020-05-09] MEDS: LORazepam 2 MG/ML VIAL IVP PRN (04:05)
[2020-05-09 05:16] LABS: BASOPHILS # (AUTO) 0.1 10^3/uL (0.0-0.1); BASOPHILS % (AUTO) 1.4 %; EOSINOPHILS # (AUTO) 0.3 10^3/uL (0.0-0.7); EOSINOPHILS % (AUTO) 4.3 %; HGB - HEMOGLOBIN 9.6 g/dL (12.0-16.0); LYMPHOCYTES # (AUTO) 2.2 10^3/uL (1.5-3.5); LYMPHOCYTES % (AUTO) 37.9 %; MEAN CORPUSCULAR HEMOGLOBIN 35.6 pg (27.0-31.0); MEAN CORPUSCULAR HGB CONC 33.6 g/dL (32.0-36.0); MEAN CORPUSCULAR VOLUME 105.9 fL (81.0-99.0); MEAN PLATELET VOLUME 9.9 fL (7.9-10.8); MONOCYTES # (AUTO) 0.3 10^3/uL (0.0-1.0); MONOCYTES % (AUTO) 5.1 %; NEUTROPHILS % (AUTO) 50.8 %; PLT - PLATELET COUNT 226 10^3/uL (130-450); RED CELL DISTRIBUTION WIDTH 15.6 % (12.0-15.0); WHITE BLOOD COUNT 5.9 x10^3/uL (4.8-10.8)
[2020-05-09 05:32] LABS: ALBUMIN 2.8 g/dL (3.2-5.5); ALBUMIN/GLOBULIN RATIO 1.1 (1.0-2.2); BILIRUBIN,TOTAL 5.9 mg/dL (0.2-1.0); CALCIUM 9.1 mg/dL (8.5-10.3); CREATININE 0.5 mg/dL (0.4-1.0); TOTAL PROTEIN 5.3 g/dL (6.7-8.2)
[2020-05-09] MEDS ORDERED: POTASSIUM CHLORIDE 20 MEQ TABLET PO ONE (07:40)
[2020-05-09] MEDS: PRENATAL VITAMIN TABLET PO SCH (08:16)
[2020-05-09] MEDS: NEUTRA-PHOS 250 MG TABLET PO SCH ×3 (08:16→17:38)
[2020-05-09] MEDS: THIAMINE 100 MG TABLET PO SCH (08:17)
[2020-05-09] MEDS: LACTULOSE 10 GM /15 ML UDC PO SCH (08:17)
[2020-05-09] MEDS: cloNIDine 0.1 MG TABLET PO SCH (08:17)
[2020-05-09] MEDS: NICOTINE 7 MG PATCH TOP SCH (08:18)
[2020-05-09] MEDS ORDERED: SODIUM CHLORIDE 0.9% 1,000 ML IV SCH ×2 (11:00→13:40)
[2020-05-09] MEDS ORDERED: SODIUM CHLORIDE 0.9% 500 ML IV ONE (13:40)
[2020-05-09] MEDS ORDERED: ALBUTEROL SULFATE IH PRN (13:42)
[2020-05-09] MEDS: oxyCODONE 5 MG TABLET PO PRN ×3 (14:51→22:57)
--- NOTE | 2020-05-09 16:02 | Discharge Plan ---
Discharge Plan Problem Reviewed?: Yes Disposition: Home, Self Care Condition: Poor Prescriptions: Lactulose [Constulose] 10 gm PO DAILY #15 solution Diet: Regular Activity Restrictions: Activity as Tolerated Shower Restrictions: No (fall precaution) Instruction Topics: Lactulose oral solution, Alcoholism, Abuse Alcohol Life After [employer], Alcoholism Impact, Alcoholism Get Help Health Concerns: alcoholism Plan of Treatment: strongly advise and encourage you quit alcohol, you state you understood and will quit. daily Lactulose is prescribed for you, you was found to have slight elevated Ammonia level at hospital. Followup with your PCP in one week and recheck your liver enzyme. Care Goals: stabilization and improvement of your medical conditions Assessment: discussed the care plan with you, you understood and agreed. Additional Instructions or Follow Up instructions: you may followup with your PCP in one week, and have blood work to check your liver enzyme. Should your symptoms return or worsen, you may present ER or call 911 for help. No Smoking: If you smoke, Please STOP! Call for help. Follow-up with: VIVIENNE PEREZ, MSN, RENAL DIETITIAN [Primary Care Provider] -
--- NOTE | 2020-05-09 16:21 | DISCHARGE SUMMARY ---
Discharge Summary Discharge Date: 05/09/20 Discharging Provider: Romain Sanders Primary Care Provider: Mireille Bruner Condition at Discharge: Poor Discharge Disposition: 01 Home, Self Care Discharge Facility Name: home - ALLERGIES Allergies/Adverse Reactions: Allergies Allergy/AdvReac Type Severity Reaction Status Date / Time No Known Drug Allergies Allergy Verified 05/02/20 08:58 - MEDICATIONS Home Medications: Ambulatory Orders Medication Instructions Recorded Confirmed Pnv No.95/Ferrous Fum/Folic AC 1 each PO DAILY #15 tablet 01/23/20 05/06/20 [ Tablet] Thiamine HCl [Vitamin B-1] 100 mg PO DAILY #15 tablet 01/23/20 05/06/20 oxyCODONE [Roxicodone] 5 mg PO Q4HR PRN #20 tablet 01/23/20 05/06/20 Ondansetron Odt [Zofran Odt] 4 mg TL Q6H PRN #10 tablet 05/02/20 05/06/20 chlordiazePOXIDE [Librium] 25 mg PO Q6H PRN #12 capsule 05/02/20 05/06/20 Albuterol Sulfate [Albuterol 2 puffs IH Q4H PRN 05/06/20 05/06/20 Sulfate Hfa] Fluticasone [Flonase] 2 sprays BEN DAILY 05/06/20 05/06/20 cloNIDine [Catapres] 0.1 mg PO BID 05/06/20 05/06/20 Lactulose [Constulose] 10 gm PO DAILY #15 solution 05/09/20 - LABS Result Diagrams: 05/09/20 05:00 05/09/20 05:00
[2020-05-09] MEDS ORDERED: PROCHLORPERAZINE 10 MG/2 ML VIAL IVP PRN (16:23)
[2020-05-09] MEDS: ONDANSETRON 4 MG/2 ML VIAL IVP PRN (16:25)
--- NOTE | 2020-05-09 17:20 | PROVIDER PROGRESS NOTE ---
Assessment/Plan - Problem List (1) Liver failure without hepatic coma Qualifiers: Liver failure chronicity: acute Qualified Code(s): K72.00 - Acute and subacute hepatic failure without coma Assessment/Plan: (1) Liver failure without hepatic coma 94, liver enzyme continue to improve, total bili is 5.9 on today. Today patient had a slight elevated ammonia level, patient was give daily lactulose. recheck ammonia level is normal. Continue lab test 93,Patient's liver enzyme trended down significantly, Patient reported she feel better and request advance her diet. 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 92, Patient's liver enzymes still high, almost the same as yesterday. But the patient request to eat more, has appetite on today. Advance diet as tolerated. Continue supervisor laboratory animal facility. Hold hepatic toxic agent. Consult with social work to help patient quit alcoholic Improved, patient's liver enzyme and total bili are all reduced. 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 Patient reported she still drinks alcohol but she state a she will stop and quit.Continue banana bag (2) intractable nausea and vomiting 05/09 Patient had nausea and vomiting at this afternoon before discharge. Unknown etiology. Patient was prescript antiemesis as needed. We will continue monitor patient, supervisor laboratory animal facility patient, we may start intravenous IV fluids as needed (3) Alcoholic pancreatitis Conclusion/Plan: 94, patient denies abdominal pain, Lipase is down to the normal. advise the patient quitted alcohol 93, lipase is normal, pt request advance diet, Slightly improved, lipase is 66 down from yesterday 99. Continue intravenous IV fluids, continue supervisor laboratory animal facility Lipase is 99 today, Supportive care with IV fluids, antiemetics, pain medicine. start with clear diet, continue lab monitor (4) Hypokalemia Conclusion/Plan: supplement IV recheck in am (5) Alcohol dependence Conclusion/Plan: 92,Patient tachycardia is controlled, HR 96.Continue CIWA protocol. Patient is tacycardia in the improved, heart rate is 104. continue monitor carefully for high blood pressure, tachycardia, delirium. CIWA protocol will be used at that time. (6) Colitis Conclusion/Plan: 05/08,Patient denies abdominal pain, patient has no diarrhea, normal WBC, patient has no fever, not antibiotics indicated. advise pt followup with GI as out-pt for colonoscopy. Improved, patient had a small bowel movement that without diarrhea. There is no hematochezia or diarrhea. Patient had normal WBC, patient has no fever, patient does not complain abdominal pain now, Just diffuse colon wall thickening on CT scan. Continue to monitor closely for signs and symptoms of infection and then will add antibiotics. Consideration of outpatient colonoscopy as needed - Current Meds Current Meds: Current Medications Generic Name Dose Route Start Last Admin Trade Name Freq PRN Reason Stop Dose Admin Chlordiazepoxide HCl 25 mg 05/06/20 15:53 05/09/20 00:54 Librium PO 25 mg Q6H PRN Administration Alcohol Withdrawal Lactulose 10 gm 05/09/20 09:00 05/09/20 08:17 Enulose PO 10 gm DAILY AL Administration Lorazepam 1 mg 05/05/20 22:52 05/09/20 04:05 Ativan Inj (Vial) IVP 1 mg Q2H PRN Administration CIWA >8 Protocol Nicotine 1 patch 05/05/20 22:52 05/09/20 08:18 Nicoderm TOP 1 patch DAILY AL Administration Ondansetron HCl 4 mg 05/06/20 16:47 05/09/20 16:25 Zofran Inj IVP 4 mg Q6HR PRN Administration Nausea / Vomiting Oxycodone HCl 5 mg 05/09/20 13:05 05/09/20 14:51 Roxicodone PO 5 mg Q4HR PRN Administration PAIN Multivit/Folic Acid/Iron 1 tab 05/07/20 08:00 05/09/20 08:16 Trinatal Rx 1 PO 1 tab DAILYWM AL Administration Sodium Phosphate 250 mg 05/06/20 12:00 05/09/20 13:25 K-Phos Neutral PO Not Given TIDWM AL Thiamine HCl 100 mg 05/07/20 09:00 05/09/20 08:17 Vitamin B-1 PO 100 mg DAILY AL Administration - Lab Result Fish Bone Diagrams: 05/09/20 05:00 05/09/20 05:00 - Additional Planning My Orders: My Active Orders 05/09/20 09:00 Lactulose [Enulose] 10 gm PO DAILY 09/04/20 13:05 oxyCODONE [Roxicodone] 5 mg PO Q4HR PRN 05/09/20 Dinner Clear Liquid Diet [DIET] 05/09/20 16:20 Initiate Discharge Checklist [RC] .ONCE 05/09/20 16:23 Prochlorperazine Inj [Compazine Inj] 10 mg IVP Q6HR PRN 05/10/20 05:00 AMMONIA [CHEM] DAILYLAB CMP [COMPREHENSIVE METABOLIC PANEL] [CHEM] DAILYLAB 05/10/20 09:00 Enoxaparin [Lovenox] 40 mg SUBQ DAILY 05/11/20 05:00 CMP [COMPREHENSIVE METABOLIC PANEL] [CHEM] DAILYLAB 05/12/20 05:00 CMP [COMPREHENSIVE METABOLIC PANEL] [CHEM] DAILYLAB 05/13/20 05:00 CMP [COMPREHENSIVE METABOLIC PANEL] [CHEM] DAILYLAB Subjective - Subjective Patient Reports: Nausea Objective Vital Signs: Vital Signs - 24 hr 05/08/20 05/08/20 05/08/20 20:11 20:38 21:30 Temperature 36.5 C 37.2 C Heart Rate 85 Heart Rate [ 101 H 85 Brachial] Respiratory 18 18 18 Rate Blood Pressure 115/73 103/67 [Left Brachial artery] Blood Pressure [Right Brachial artery] O2 Saturation 99 97 05/09/20 05/09/20 05/09/20 00:49 03:57 09:00 Temperature 37.1 C 36.7 C 36.9 C Heart Rate Heart Rate [ 88 93 90 Brachial] Respiratory 18 18 15 Rate Blood Pressure 110/72 115/78 96/57 L [Left Brachial artery] Blood Pressure [Right Brachial artery] O2 Saturation 97 98 97 05/09/20 05/09/20 05/09/20 10:00 13:09 13:39 Temperature 36.9 C Heart Rate Heart Rate [ 93 99 Brachial] Respiratory 16 Rate Blood Pressure 100/57 L 99/62 104/64 [Left Brachial artery] Blood Pressure 90/62 [Right Brachial artery] O2 Saturation 97 05/09/20 05/09/20 14:49 15:42 Temperature 37.4 C 37.4 C Heart Rate Heart Rate [ 89 91 Brachial] Respiratory 16 18 Rate Blood Pressure [Left Brachial artery] Blood Pressure 98/69 108/74 [Right Brachial artery] O2 Saturation 97 95 Oxygen O2 Source Room air I&O (Last 24 Hrs): Intake and Output Totals x24h 09/02/20 09/03/20 09/04/20 23:59 23:59 23:59 Intake Total 1890 2785 2505 Output Total 1950 1525 1700 Balance -60 1260 805 General: Alert, Oriented x3, Mild distress HEENT: Atraumatic Neck: Supple Lymphatic: no adenopathy Neuro: Alert, Non Focal, Oriented Times 3 Cardiovascular: Regular rate, Normal S1, Normal S2 Respiratory: Chest non-tender, No respiratory distress Abdomen: Normal bowel sounds, Soft, No tenderness Extremities: Normal pulses - Results Results: Laboratory Results WBC 5.9 x10^3/uL (4.8-10.8) 05/09/20 05:00 RBC 2.70 10^6/uL (4.20-5.40) L 05/09/20 05:00 Hgb 9.6 g/dL (12.0-16.0) L 05/09/20 05:00 Hct 28.6 % (37.0-47.0) L 05/09/20 05:00 MCV 105.9 fL (81.0-99.0) H 05/09/20 05:00 MCH 35.6 pg (27.0-31.0) H 05/09/20 05:00 MCHC 33.6 g/dL (32.0-36.0) 05/09/20 05:00 RDW 15.6 % (12.0-15.0) H 05/09/20 05:00 Plt Count 226 10^3/uL (130-450) 05/09/20 05:00 MPV 9.9 fL (7.9-10.8) 05/09/20 05:00 Neut # (Auto) 3.0 10^3/uL (1.5-6.6) 05/09/20 05:00 Lymph # (Auto) 2.2 10^3/uL (1.5-3.5) 05/09/20 05:00 [place] # (Auto) 0.3 10^3/uL (0.0-1.0) 05/09/20 05:00 Eos # (Auto) 0.3 10^3/uL (0.0-0.7) 05/09/20 05:00 Baso # (Auto) 0.1 10^3/uL (0.0-0.1) 05/09/20 05:00 Absolute Nucleated RBC 0.00 x10^3/uL 05/09/20 05:00 Nucleated RBC % 0.0 /100WBC 05/09/20 05:00 PT 14.0 secs (9.9-12.6) H 05/06/20 04:00 INR 1.2 (0.8-1.2) 05/06/20 04:00 VBG pH 7.404 (7.31-7.41) 05/05/20 15:27 VBG pCO2 27.2 mmHg (41-51) L 05/05/20 15: VBG pO2 73.3 mmHg (25-47) H 05/05/20 15:27 VBG HCO3 16.6 mmol/L (23-28) L 05/05/20 15:27 VBG Total CO2 17.5 mmol/L (24-29) L 05/05/20 15: VBG O2 Saturation 94.1 % (60-80) H 05/05/20 15:27 VBG Base Excess -6.4 mmol/L (-2 - +2) L 05/05/20 15:27 Sodium 138 mmol/L (135-145) 05/09/20 05:00 Potassium 3.3 mmol/L (3.5-5.0) L 05/09/20 05:00 Chloride 105 mmol/L (101-111) 05/09/20 05:00 Carbon Dioxide 25 mmol/L (21-32) 05/09/20 05:00 Anion Gap 8.0 (6-13) 05/09/20 05:00 BUN 6 mg/dL (6-20) 05/09/20 05:00 Creatinine 0.5 mg/dL (0.4-1.0) 05/09/20 05:00 Estimated GFR (MDRD) 135 (>89) 05/09/20 05:00 Glucose 128 mg/dL (70-100) H 05/09/20 05:00 POC Whole Bld Glucose 107 mg/dL (70 - 100) H 05/09/20 16:24 Calcium 9.1 mg/dL (8.5-10.3) 05/09/20 05:00 Phosphorus 2.8 mg/dL (2.5-4.6) 05/08/20 04:55 Magnesium 2.7 mg/dL (1.7-2.8) 05/06/20 04:00 Total Bilirubin 5.9 mg/dL (0.2-1.0) H 05/09/20 05:00 AST 243 IU/L (10-42) H 05/09/20 05:00 ALT 132 IU/L (10-60) H 05/09/20 05:00 Alkaline Phosphatase 166 IU/L (42-121) H 05/09/20 05:00 Ammonia 34.6 umol/L (7-35) 05/09/20 15:40 Total Creatine Kinase 28 IU/L (22-269) 05/05/20 15:27 Troponin I High Sens 6.2 ng/L (2.3-14.8) 05/09/20 14:00 Total Protein 5.3 g/dL (6.7-8.2) L 05/09/20 05:00 Albumin 2.8 g/dL (3.2-5.5) L 05/09/20 05:00 Globulin 2.5 g/dL (2.1-4.2) 05/09/20 05:00 Albumin/Globulin Ratio 1.1 (1.0-2.2) 05/09/20 05:00 Lipase 52 U/L (22-51) H 05/09/20 05:00 Ur Specific Barry >=1.030 (1.002-1.030) H 05/05/20 16:43 Urine HCG, Qual NEGATIVE 05/05/20 16:43 Salicylates < 6.0 mg/dL 05/05/20 15:27 Urine Opiates Screen POSITIVE (NEGATIVE) H 05/05/20 16:43 Ur Oxycodone Screen NEGATIVE (NEGATIVE) 05/05/20 16:43 Urine Methadone Screen NEGATIVE (NEGATIVE) 05/05/20 16:43 Ur Propoxyphene Screen NEGATIVE (NEGATIVE) 05/05/20 16:43 Acetaminophen < 10 ug/mL (10-30) L 05/05/20 15:27 Ur Barbiturates Screen NEGATIVE (NEGATIVE) 05/05/20 16:43 Ur Tricyclics Screen NEGATIVE (NEGATIVE) 05/05/20 16:43 Ur Phencyclidine Scrn NEGATIVE (NEGATIVE) 05/05/20 16:43 Ur Amphetamine Screen NEGATIVE (NEGATIVE) 05/05/20 16:43 U Methamphetamines Scrn NEGATIVE (NEGATIVE) 05/05/20 16:43 U Benzodiazepines Scrn POSITIVE (NEGATIVE) H 05/05/20 16:43 Urine Cocaine Screen NEGATIVE (NEGATIVE) 05/05/20 16:43 U Cannabinoids Screen POSITIVE (NEGATIVE) H 05/05/20 16:43 Ethyl Alcohol 124.1 mg/dL 05/05/20 15:27 Serum Ketones NEGATIVE (NEGATIVE) 05/06/20 04:00 Hepatitis A IgM Ab NON-REACTIVE (NON-REACTIVE) 05/06/20 04:00 Hep Bs Antigen NON-REACTIVE (NON-REACTIVE) 05/06/20 04:00 Hep B Core IgM Ab NON-REACTIVE (NON-REACTIVE) 05/06/20 04:00 Hepatitis C Antibody NON-REACTIVE (NON-REACTIVE) 05/06/20 04:00 Hep C Ab Signal/Cutoff 0.00 (<1.00) 05/06/20 04:00 ABX Reporting Has patient been on IV antibiotics over the past 48 hours?: No Current Medications - Current Medications Current Medications: Active Medications Albuterol () 2.5 mg INH RTQ4H PRN PRN Reason: Wheezing Chlordiazepoxide HCl (Librium) 25 mg PO Q6H PRN PRN Reason: Alcohol Withdrawal Last Admin: 05/09/20 00:54 Dose: 25 mg Documented by: Enoxaparin Sodium (Lovenox) 40 mg SUBQ DAILY AL Lactulose (Enulose) 10 gm PO DAILY AL Last Admin: 05/09/20 08:17 Dose: 10 gm Documented by: Lorazepam (Ativan Inj (Vial)) 1 mg IVP Q2H PRN; Protocol PRN Reason: CIWA >8 Last Admin: 05/09/20 04:05 Dose: 1 mg Documented by: Nicotine (Nicoderm) 1 patch TOP DAILY AL Last Admin: 05/09/20 08:18 Dose: 1 patch Documented by: Ondansetron HCl (Zofran Inj) 4 mg IVP Q6HR PRN PRN Reason: Nausea / Vomiting Last Admin: 05/09/20 16:25 Dose: 4 mg Documented by: Oxycodone HCl (Roxicodone) 5 mg PO Q4HR PRN PRN Reason: PAIN Last Admin: 05/09/20 14:51 Dose: 5 mg Documented by: Multivit/Folic Acid/Iron (Trinatal Rx 1) 1 tab PO DAILYWM [facility] Last Admin: 05/09/20 08:16 Dose: 1 tab Documented by: Prochlorperazine Edisylate (Compazine Inj) 10 mg IVP Q6HR PRN PRN Reason: Nausea / Vomiting Sodium Phosphate (K-Phos Neutral) 250 mg PO TIDWM [facility] Last Admin: 05/09/20 13:25 Dose: Not Given Documented by: Thiamine HCl (Vitamin B-1) 100 mg PO DAILY [facility] Last Admin: 05/09/20 08:17 Dose: 100 mg Documented by: Albuterol Sulfate [Albuterol Sulfate Hfa] 2 puffs IH Q4H PRN 05/06/20 Fluticasone [Flonase] 2 sprays BEN DAILY 05/06/20 cloNIDine [Catapres] 0.1 mg PO BID 05/06/20
[2020-05-10] MEDS: oxyCODONE 5 MG TABLET PO PRN ×2 (02:36→07:58)
[2020-05-10 05:07] LABS: BASOPHILS # (AUTO) 0.1 10^3/uL (0.0-0.1); BASOPHILS % (AUTO) 0.9 %; EOSINOPHILS # (AUTO) 0.2 10^3/uL (0.0-0.7); EOSINOPHILS % (AUTO) 2.9 %; HGB - HEMOGLOBIN 9.6 g/dL (12.0-16.0); LYMPHOCYTES # (AUTO) 1.8 10^3/uL (1.5-3.5); LYMPHOCYTES % (AUTO) 32.6 %; MEAN CORPUSCULAR HEMOGLOBIN 36.1 pg (27.0-31.0); MEAN CORPUSCULAR HGB CONC 33.2 g/dL (32.0-36.0); MEAN CORPUSCULAR VOLUME 108.6 fL (81.0-99.0); MEAN PLATELET VOLUME 9.7 fL (7.9-10.8); MONOCYTES # (AUTO) 0.3 10^3/uL (0.0-1.0); MONOCYTES % (AUTO) 5.9 %; NEUTROPHILS # (AUTO) 3.1 10^3/uL (1.5-6.6); NEUTROPHILS % (AUTO) 57.3 %; PLT - PLATELET COUNT 243 10^3/uL (130-450); RED BLOOD COUNT 2.66 10^6/uL (4.20-5.40); RED CELL DISTRIBUTION WIDTH 16.7 % (12.0-15.0); WHITE BLOOD COUNT 5.4 x10^3/uL (4.8-10.8)
[2020-05-10 05:14] VITALS: BP 127/88
[2020-05-10 05:20] LABS: ALBUMIN 2.7 g/dL (3.2-5.5); ALBUMIN/GLOBULIN RATIO 1.1 (1.0-2.2); BILIRUBIN,TOTAL 5.4 mg/dL (0.2-1.0); CALCIUM 8.5 mg/dL (8.5-10.3); CREATININE 0.4 mg/dL (0.4-1.0); TOTAL PROTEIN 5.1 g/dL (6.7-8.2)
[2020-05-10] MEDS: ONDANSETRON 4 MG/2 ML VIAL IVP PRN (06:45)
[2020-05-10] MEDS ORDERED: POTASSIUM CHLORIDE 20 MEQ TABLET PO ONE (06:56)
--- NOTE | 2020-05-10 07:05 | Discharge Plan ---
Discharge Plan Problem Reviewed?: Yes Disposition: Home, Self Care Condition: Stable Prescriptions: oxyCODONE [Roxicodone] 5 mg PO Q4HR PRN #20 tablet PRN Reason: Pain Lactulose [Constulose] 10 gm PO DAILY #15 solution Ondansetron Odt [Zofran Odt] 4 mg TL Q6H PRN #30 tablet PRN Reason: Nausea / Vomiting Diet: Soft (with low, low fat) Activity Restrictions: Activity as Tolerated Shower Restrictions: No (fall precaution) Instruction Topics: Lactulose oral solution, Abuse Alcohol Life After Combat, Alcoholism, Alcoholism Impact, Alcoholism Get Help Health Concerns: You were admitted to the hospital with abdominal pain, back pain and leg pain. That is what brought you to the emergency room. You also shared with us you have been drinking way too much since July of last year and had been admitted once before in January 2020 for pancreatitis from alcohol abuse. Right now, you have been trying to stop drinking for 2 to 3 weeks. You were coming off of it by using a pill given to you by an outpatient rehab facility in [place]. You had become shaky, could not eat, had vomiting, and you had to come to the emergency room with your back pain and leg pain. We found you to have alcoholic hepatitis, pancreatitis, and a low potassium with severe dehydration. Plan of Treatment: Treatment consisted of intravenous fluids. We did not feed you anything for several days. After a few days in the hospital you were able to start taking clear liquids and then full liquids. We were getting ready to discharge you when you had an episode of vomiting and as such we kept you 1 more day. You were still with some abdominal pain and would like some pain medicine to go home with. You also wanted a nicotine patch to help you stop smoking. Care Goals: stabilization and improvement of your medical conditions As sucs you will go home with: 1. Nicotine 7 mg patch 2. Zofran tablets for nausea, 1 every 6 hours as needed 3. Take a vitamin every day 4. Thiamine (vitamin B1) 100 mg a day As you know, you must stop smoking and drinking. It is detrimental enough to yo ur health that your lifespan will be significantly shortened. Assessment: discussed the care plan with you, you understood and agreed. Additional Instructions or Follow Up instructions: you may followup with your PCP in one week, and have blood work to check your liver enzyme. Should your symptoms return or worsen, you may present ER or call 911 for help. No Smoking: If you smoke, Please STOP! Call for help. Follow-up with: VIVIENNE PEREZ, MSN, HUMAN SERVICE SPECIALIST [Primary Care Provider] -
[2020-05-10] MEDS: NICOTINE 7 MG PATCH TOP SCH (07:55)
[2020-05-10] MEDS: NEUTRA-PHOS 250 MG TABLET PO SCH (07:56)
[2020-05-10] MEDS: PRENATAL VITAMIN TABLET PO SCH (07:57)
[2020-05-10] MEDS: THIAMINE 100 MG TABLET PO SCH (07:57)
[2020-05-10] MEDS: LACTULOSE 10 GM /15 ML UDC PO SCH (07:59)
--- NOTE | 2020-05-10 08:48 | DISCHARGE SUMMARY ---
Discharge Summary Admit Date: 05/05/20 Discharge Date: 05/10/20 Discharging Provider: Ada Steele Primary Care Provider: Mireille Bruner Code Status: Attempt Resuscitation Condition at Discharge: Stable Discharge Disposition: 01 Home, Self Care - DIAGNOSES Admission Diagnoses: Liver failure without hepatic coma Alcoholic pancreatitis Hypokalemia Alcohol dependence Colitis Discharge Diagnoses with Status of Each Condition: Liver cirrhosis - improving. Alcoholic pancreatitis - resolved. Hypokalemia - stable. Alcohol dependence - stable. Colitis - improving. - HPI History of Present Illness: H&P per Dr. Steele: She is a 45-year-old white female who stated that she did not start abusing al cohol till July of last year. 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 While she was doing training and during her work hours, she worked 14 days in a row and it was "too much for her". So she started drinking in response to "all of that stress". She was admitted in January 2020 with alcoholic pancreatitis and discharged after 4 days. She continues to abuse alcohol. Again states that she is overwhelmed, and is "doing too much for everybody in her life". She is working with a company called [employer] out of [place]. She has managed to cut her drinking from half a gallon of whiskey a day to 1/4 gallon of whiskey a day. Starting 2 to 3 weeks ago they then instructed her to take the pill that they prescribed. Take the pill, 3 hours later she can have a drink, 3 hours later a pill, 3 hours later to drink, etc. This way she could avoid withdrawal. The pills she was using was Librium and she ran out a few days ago. She has become shaky, not eating. Become constipated. A couple of weeks ago she started having vomiting. No hematemesis, no hematochezia. She denies fever, chills, cough, shortness of breath. She began having leg pain and thigh pain. So she came to the emergency [facility] May 02. At that point in time CBC was normal other than macrocytosis. Potassium was 3.1. Total bili 5. AST 475, ALT 151, alk phos 220 and lipase 219. She was given IV fluids as well as antiemetics and improved. She was given a small prescription number for Librium as well as Zofran. She returns today because her abdominal pain got so severe, as well as leg pain. Ambulance was called and she was brought in by EMS. In e emergency room she was afebrile, oxygenating well. Mildly hypertensive and tachycardic. On examination she was icteric, alert. Writhing and uncomfortable in pain, tachycardic. Mild diffuse abdominal tenderness without surgical signs. Alert and oriented with normal speech. Labs showed her to be hypokalemic. Total bili was 10, liver enzymes show an AST of 605, ALT 196, alk phos 253. Lipase 100. CT of abdomen and pelvis shows clear lung bases. The colon had generalized wall thickening with a nodular appearance. This involves the descending colon, transverse colon, descending colon and the sigmoid colon. No free air. No loculated abscesses. No adenopathy. An enlarged fatty liver was seen. Spleen was normal size. No significant pancreatic abnormality was seen. Specifically there is no significant peripancreatic inflammatory changes. She is brought in for the presumptive diagnosis of colitis, hypokalemia, and incipient alcohol withdrawal. - CONSULTS | PROCEDURES Consultations: Social Work Procedures: CT of the abdomen and pelvis with IV contrast dated May 05 showed abnormal colon, with nodule thickening seen throughout his course. Please correlate with potential infectious inflammatory causes, including C. difficile colitis. Given the age of the patient extent of the involvement, ischemic colitis considered to be unlikely. A prominent gallbladder is seen, without additional abnormality seen by CT. The pancreas now demonstrates normal appearance. Abdominal ultrasound dated May 06 showed hepatomegaly. Liver is diffusely echogenic which is typically related to fatty infiltration, however finding is nonspecific and other etiology including hepatic cirrhosis Is a similar appearance. Please correlate with clinical laboratory data. No biliary tree dilatation. No sonographic evidence of cholelithiasis or cholecystitis. - HOSPITAL COURSE Hospital Course: He was admitted to the floor for alcoholic hepatitis and possible alcoholic pancreatitis/gastritis. The CT of the abdomen and pelvis did not suggest pancreatitis but suggested colitis. She did not have diarrhea during this hospitalization and so she was not tested for C. difficile. She was treated with antiemetics and IV fluids with improvement in her symptoms. Her LFTs trended down and improved. A right upper quadrant ultrasound was consistent with liver cirrhosis. Social work was consulted to provide the patient with resources regarding alcohol cessation. She was started on a clear liquid diet which was advanced. This took a few days due to nausea and vomiting. Kelleye was tested for hepatitis which was negative. She was initially supposed be discharged on May 09 but she developed nausea and vomiting in the afternoon and so she remained hospitalized until the following day. She was able to tolerate a diet without any further emesis. She was discharged home with antiemetics and she was provided with 20 tablets of oxycodone for pain. - ALLERGIES Allergies/Adverse Reactions: Allergies Allergy/AdvReac Type Severity Reaction Status Date / Time No Known Drug Allergies Allergy Verified 05/02/20 08:58 - MEDICATIONS Home Medications: Ambulatory Orders Medication Instructions Recorded Confirmed Pnv No.95/Ferrous Fum/Folic AC 1 each PO DAILY #15 tablet 01/23/20 05/06/20 [ Tablet] chlordiazePOXIDE [Librium] 25 mg PO Q6H PRN #12 capsule 05/02/20 05/06/20 Albuterol Sulfate [Albuterol 2 puffs IH Q4H PRN 05/06/20 05/06/20 Sulfate Hfa] Fluticasone [Flonase] 2 sprays BEN DAILY 05/06/20 05/06/20 cloNIDine [Catapres] 0.1 mg PO BID 05/06/20 05/06/20 Lactulose [Constulose] 10 gm PO DAILY #15 solution 05/09/20 Ondansetron Odt [Zofran Odt] 4 mg TL Q6H PRN #30 tablet 05/10/20 Thiamine HCl [Vitamin B-1] 100 mg PO DAILY #30 tablet 05/10/20 05/06/20 oxyCODONE [Roxicodone] 5 mg PO Q4HR PRN #20 tablet 05/10/20 - PHYSICAL EXAM AT DISCHARGE General Appearance: positive: No acute distress, Alert Eyes Bilateral: positive: Normal inspection, Conjunctivae nml ENT: positive: ENT inspection nml Neck: positive: Nml inspection Respiratory: positive: No respiratory distress. negative: Wheezes, Rales Cardiovascular: positive: Regular rate & rhythm, No murmur. negative: Tachycardia, Systolic murmur Abdomen: positive: Non-tender, No distention. negative: Tenderness, Guarding, Rebound Back: positive: Other (Paraspinal tenderness) Skin: positive: No rash, Warm, Dry Extremities: positive: Full ROM, No pedal edema Neurologic/Psychiatric: positive: Oriented x3, Motor nml. negative: Disoriented to person, Disoriented to place, Disoriented to time - LABS Result Diagrams: 05/10/20 04:54 05/10/20 04:54 - DIAGNOSTIC IMAGING Diagnostic Imaging Results: Final report reviewed - FOLLOW UP Follow Up: She was asked to follow up with her primary care provider in 1-2 weeks. - TIME SPENT Time Spent in Discharge (Minutes): 32
[2020-05-10] MEDS ORDERED: ENOXAPARIN 40 MG/0.4 ML SYRINGE SUBQ SCH (09:00)
== END 2020-05-10 08:37 | disposition home or self-care (01) | DRG 432 ==
LOC: EDUNIT# → ED 14:36 → MS3 18:03
PROVIDERS: ADMIT Internal Medicine; ATTEND Specialist
DX: K70.30 Alcoholic cirrhosis of liver without ascites (principal); K85.20 Alcohol induced acute pancreatitis without necrosis or infection; F10.239 Alcohol dependence with withdrawal, unspecified; K70.40 Alcoholic hepatic failure without coma; E87.6 Hypokalemia; K52.9 Noninfective gastroenteritis and colitis, unspecified; R11.2 Nausea with vomiting, unspecified; K70.10 Alcoholic hepatitis without ascites; F17.210 Nicotine dependence, cigarettes, uncomplicated; I10 Essential (primary) hypertension
CPT/HCPCS: 36415; 74177; 76700; 80053; 80074; 80306; 80307; 80320; 80329; 81025; 82009; 82140; 82550; 82803; 83690; 83735; 84100; 84132; 84484; 85025; 85610; 96365; 96366; 96367; 96375; 96376; 99284; 99285; A9270; J2060; J2270; J3411; J7040; Q9967

== ENCOUNTER 2020-12-11 20:42 | Inpatient (IN) | payer MEDICAID ==
--- OUTSIDE RECORDS SUMMARY | 2020-12-11 21:06 | EXTERNAL MEDICAL SUMMARY RPT | Continuity of Care Document ---
:1975 Demographics Phone Unavailable Preferred Language Unknown Marital Status Unknown Jainism Affiliation Unknown Race Unknown Ethnic Group Unknown Author Organization [facility] Address [address] [place] [address] Phone Social History date description facility [id number]
[2020-12-11 21:32] LABS: BASOPHILS # (AUTO) 0.1 10^3/uL (0.0-0.1); BASOPHILS % (AUTO) 0.5 %; EOSINOPHILS % (AUTO) 0.2 %; HGB - HEMOGLOBIN 15.5 g/dL (12.0-16.0); LYMPHOCYTES # (AUTO) 1.4 10^3/uL (1.5-3.5); LYMPHOCYTES % (AUTO) 8.1 %; MEAN CORPUSCULAR HEMOGLOBIN 31.9 pg (27.0-31.0); MEAN CORPUSCULAR VOLUME 96.7 fL (81.0-99.0); MEAN PLATELET VOLUME 9.7 fL (7.9-10.8); MONOCYTES # (AUTO) 0.7 10^3/uL (0.0-1.0); MONOCYTES % (AUTO) 4.1 %; NEUTROPHILS % (AUTO) 86.7 %; PLT - PLATELET COUNT 270 10^3/uL (130-450); RED BLOOD COUNT 4.86 10^6/uL (4.20-5.40); RED CELL DISTRIBUTION WIDTH 17.2 % (12.0-15.0); WHITE BLOOD COUNT 17.3 x10^3/uL (4.8-10.8)
[2020-12-11] MEDS ORDERED: ONDANSETRON 4 MG/2 ML VIAL IVP STA (21:35)
[2020-12-11] MEDS ORDERED: PANTOPRAZOLE 40 MG VIAL IV STA (21:35)
[2020-12-11 21:49] LABS: ALBUMIN 5.4 g/dL (3.2-5.5); ALBUMIN/GLOBULIN RATIO 1.6 (1.0-2.2); BILIRUBIN,TOTAL 1.1 mg/dL (0.2-1.0); CALCIUM 9.6 mg/dL (8.5-10.3); CREATININE 1.1 mg/dL (0.4-1.0); POTASSIUM 3.8 mmol/L (3.5-5.0); TOTAL PROTEIN 8.8 g/dL (6.7-8.2)
[2020-12-11] MEDS ORDERED: SODIUM CHLORIDE 0.9% 1,000 ML IV STA (21:56)
[2020-12-11] MEDS ORDERED: LORazepam 2 MG/ML VIAL IVP STA (22:18)
[2020-12-11] MEDS ORDERED: DROPERIDOL 5 MG/2 ML VIAL IVP STA (22:55)
[2020-12-11] MEDS ORDERED: FOLIC ACID INJ 1 MG, THIAMINE INJ 100 MG, MAGNESIUM SULFATE 2 GM, MULTIVITAMIN 10 ML in... IV STA ×5 (23:48)
[2020-12-11] MEDS ORDERED: PHENobarbital 65 MG/ML VIAL IV STA ×2 (23:50→23:51)
[2020-12-11] MEDS ORDERED: THIAMINE 100 MG/1 ML 2 ML MDV ONE (23:53)
[2020-12-11] MEDS ORDERED: MAGNESIUM SULFATE 1 GM/2 ML VIAL ONE (23:53)
[2020-12-11] MEDS ORDERED: FOLIC ACID 5 MG/1 ML 10ML MDV ONE (23:53)
--- NOTE | 2020-12-12 00:38 | ED Physician Documentation ---
History of Present Illness - Stated complaint Stated Complaint: VOMITING BLOOD - Chief complaint Chief Complaint: General - History obtained from History obtained from: Patient - Additonal information Additional information: Patient comes to the emergency department chief complaint of vomiting blood. The patient has a longstanding history of alcoholism, and states that her last week day of drinking was 4 days ago. She initially does not admit to drinking since, but then admits she has been drinking a lesser amount. She states she began to vomit a couple days ago and has had upper abdominal pain. She states that 2 of her most recent episodes of vomiting contained coffee-ground emesis. She has a history of chronic pancreatitis from her alcohol abuse, and is concerned this is acting up as well. Patient denies feeling shaky, but she is beginning to Feel nauseated again. No other complaints at this time. No fevers or chills. No dysuria. Review of Systems Ten Systems: 10 systems reviewed and negative Constitutional: reports: Reviewed and negative Eyes: reports: Reviewed and negative Ears: reports: Reviewed and negative Nose: reports: Reviewed and negative Throat: reports: Reviewed and negative Cardiac: reports: Reviewed and negative Respiratory: reports: Reviewed and negative GI: reports: Abdominal Pain, Nausea, Vomiting, Hematemesis : reports: Reviewed and negative Skin: reports: Reviewed and negative Musculoskeletal: reports: Reviewed and negative Neurologic: reports: Reviewed and negative Psychiatric: reports: Reviewed and negative Endocrine: reports: Reviewed and negative Immunocompromised: reports: Reviewed and negative PD PAST MEDICAL HISTORY - Past Medical History Past Medical History: Yes Cardiovascular: Hypertension Respiratory: None Neuro: Migraines Endocrine/Autoimmune: None GI: Pancreatitis [employer]: Ovarian cysts, 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), Other : None HEENT: Other Psych: Depression, Anxiety Musculoskeletal: Chronic back pain, Other Derm: None - Past Surgical History Past Surgical History: Yes /[employer]: Other - Present Medications Home Medications: Ambulatory Orders Medication Instructions Recorded Confirmed Pnv No.95/Ferrous Fum/Folic AC 1 each PO DAILY #15 tablet 01/23/20 05/06/20 [ Tablet] chlordiazePOXIDE [Librium] 25 mg PO Q6H PRN #12 capsule 05/02/20 05/06/20 Albuterol Sulfate [Albuterol 2 puffs IH Q4H PRN 05/06/20 05/06/20 Sulfate Hfa] Fluticasone [Flonase] 2 sprays BEN DAILY 05/06/20 05/06/20 cloNIDine [Catapres] 0.1 mg PO BID 05/06/20 05/06/20 Lactulose [Constulose] 10 gm PO DAILY #15 solution 05/09/20 Ondansetron Odt [Zofran Odt] 4 mg TL Q6H PRN #30 tablet 05/10/20 Thiamine HCl [Vitamin B-1] 100 mg PO DAILY #30 tablet 05/10/20 05/06/20 oxyCODONE [Roxicodone] 5 mg PO Q4HR PRN #20 tablet 05/10/20 - Allergies Allergies/Adverse Reactions: Allergies Allergy/AdvReac Type Severity Reaction Status Date / Time No Known Drug Allergies Allergy Verified 12/11/20 20:59 - Social History Does the pt smoke?: Yes Smoking Status: Current every day smoker Does the pt drink ETOH?: Yes Does the pt have substance abuse?: No - Immunizations Immunizations are current?: Yes Immunizations: TDAP >10years/unknown - POLST Patient has POLST: No POLST Status: Full Code PD ED PE NORMAL - Vitals Vital signs reviewed: Yes - General General: Alert and oriented X 3, No acute distress - HEENT HEENT: Atraumatic, PERRL, EOMI, Moist mucous membranes - Neck Neck: Supple, no meningeal sign - Cardiac Cardiac: No murmur, Other (Regular rhythm tachycardic rate in the 130s to 140s.) - Respiratory Respiratory: Clear bilaterally - Abdomen Abdomen: Normal bowel sounds, Soft, Non tender, Non distended - Derm Derm: Warm and dry - Extremities Extremities: No deformity - 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 - Psych Psych: Normal mood, Normal affect Results - Vitals Vitals: Vital Signs - 24 hr 12/11/20 12/11/20 12/11/20 20:59 21:05 23:05 Temperature 36.6 C 36.6 C 36.6 C Heart Rate 149 H 110 H 130 H Respiratory 16 17 18 Rate Blood Pressure 127/94 H 140/98 H 120/96 H O2 Saturation 94 100 99 12/11/20 23:48 Temperature 36.6 C Heart Rate 134 H Respiratory 19 Rate Blood Pressure 120/96 H O2 Saturation 98 Oxygen O2 Source Room air - Labs Labs: Laboratory Tests 04/04/2512/11/20 12/11/20 01:20 21:00 21:21 WBC 17.3 H RBC 4.86 Hgb 15.5 Hct 47.0 MCV 96.7 MCH 31.9 H MCHC 33.0 RDW 17.2 H Plt Count 270 MPV 9.7 Neut # (Auto) 15.0 H Lymph # (Auto) 1.4 L [place] # (Auto) 0.7 Eos # (Auto) 0.0 Baso # (Auto) 0.1 Absolute Nucleated RBC 0.00 Nucleated RBC % 0.0 PT 13.5 H INR 1.2 Sodium Potassium Chloride Carbon Dioxide Anion Gap BUN Creatinine Estimated GFR (MDRD) Glucose Calcium Total Bilirubin AST ALT Alkaline Phosphatase Total Protein Albumin Globulin Albumin/Globulin Ratio Lipase Urine Color YELLOW Urine Clarity CLEAR Urine pH 6.0 Ur Specific [place] >=1.030 H Urine Protein 30 H Urine Glucose (UA) NEGATIVE Urine Ketones >=80 H Urine Occult Blood LARGE H Urine Nitrite NEGATIVE Urine Bilirubin NEGATIVE Urine Urobilinogen 0.2 (NORMAL) Ur Leukocyte Esterase NEGATIVE Urine RBC 6-10 H Urine WBC 0-3 Ur Squamous Epith Cells MOD Squamous H Urine Bacteria Rare Urine Casts 3-5 Hyaline Casts Ur Microscopic Review INDICATED Urine Culture Comments NOT INDICATED Nasal Adenovirus (PCR) Nasal B. parapertussis DNA (PCR) Nasal Coronavir 229E PCR Nasal Coronavir HKU1 PCR Nasal Coronavir NL63 PCR Nasal Coronavir OC43 PCR Nasal Enterovir/Rhinovir PCR Nasal Influenza B PCR Nasal Influenza A PCR Nasal Parainfluen 1 PCR Nasal Parainfluen 2 PCR Nasal Parainfluen 3 PCR Nasal Parainfluen 4 PCR Nasal RSV (PCR) Nasal B.pertussis DNA PCR Nasal C.pneumoniae (PCR) Ben Human Metapneumo PCR Nasal M.pneumoniae (PCR) Nasal SARS-CoV-2 (PCR) Ethyl Alcohol Blood Type Blood Type Recheck Antibody Screen 12/11/20 12/11/20 12/11/20 21:21 21:21 21:21 WBC RBC Hgb Hct MCV MCH MCHC RDW Plt Count MPV Neut # (Auto) Lymph # (Auto) [place] # (Auto) Eos # (Auto) Baso # (Auto) Absolute Nucleated RBC Nucleated RBC % PT INR Sodium 139 Potassium 3.8 Chloride 98 L Carbon Dioxide 9 L* Anion Gap 32.0 H BUN 17 Creatinine 1.1 H Estimated GFR (MDRD) 54 L Glucose 79 Calcium 9.6 Total Bilirubin 1.1 H AST 117 H ALT 59 Alkaline Phosphatase 126 H Total Protein 8.8 H Albumin 5.4 Globulin 3.4 Albumin/Globulin Ratio 1.6 Lipase 142 H Urine Color Urine Clarity Urine pH Ur Specific [place] Urine Protein Urine Glucose (UA) Urine Ketones Urine Occult Blood Urine Nitrite Urine Bilirubin Urine Urobilinogen Ur Leukocyte Esterase Urine RBC Urine WBC Ur Squamous Epith Cells Urine Bacteria Urine Casts Ur Microscopic Review Urine Culture Comments Nasal Adenovirus (PCR) Nasal B. parapertussis DNA (PCR) Nasal Coronavir 229E PCR Nasal Coronavir HKU1 PCR Nasal Coronavir NL63 PCR Nasal Coronavir OC43 PCR Nasal Enterovir/Rhinovir PCR Nasal Influenza B PCR Nasal Influenza A PCR Nasal Parainfluen 1 PCR Nasal Parainfluen 2 PCR Nasal Parainfluen 3 PCR Nasal Parainfluen 4 PCR Nasal RSV (PCR) Nasal B.pertussis DNA PCR Nasal C.pneumoniae (PCR) Ben Human Metapneumo PCR Nasal M.pneumoniae (PCR) Nasal SARS-CoV-2 (PCR) Ethyl Alcohol 123.3 Blood Type Blood Type Recheck O NEGATIVE Antibody Screen 12/11/20 12/12/20 21:27 00:38 WBC RBC Hgb Hct MCV MCH MCHC RDW Plt Count MPV Neut # (Auto) Lymph # (Auto) [place] # (Auto) Eos # (Auto) Baso # (Auto) Absolute Nucleated RBC Nucleated RBC % PT INR Sodium Potassium Chloride Carbon Dioxide Anion Gap BUN Creatinine Estimated GFR (MDRD) Glucose Calcium Total Bilirubin AST ALT Alkaline Phosphatase Total Protein Albumin Globulin Albumin/Globulin Ratio Lipase Urine Color Urine Clarity Urine pH Ur Specific [place] Urine Protein Urine Glucose (UA) Urine Ketones Urine Occult Blood Urine Nitrite Urine Bilirubin Urine Urobilinogen Ur Leukocyte Esterase Urine RBC Urine WBC Ur Squamous Epith Cells Urine Bacteria Urine Casts Ur Microscopic Review Urine Culture Comments Nasal Adenovirus (PCR) NOT DETECTED Nasal B. parapertussis DNA (PCR) NOT DETECTED Nasal Coronavir 229E PCR NOT DETECTED Nasal Coronavir HKU1 PCR NOT DETECTED Nasal Coronavir NL63 PCR NOT DETECTED Nasal Coronavir OC43 PCR NOT DETECTED Nasal Enterovir/Rhinovir PCR NOT DETECTED Nasal Influenza B PCR NOT DETECTED Nasal Influenza A PCR NOT DETECTED Nasal Parainfluen 1 PCR NOT DETECTED Nasal Parainfluen 2 PCR NOT DETECTED Nasal Parainfluen 3 PCR NOT DETECTED Nasal Parainfluen 4 PCR NOT DETECTED Nasal RSV (PCR) NOT DETECTED Nasal B.pertussis DNA PCR NOT DETECTED Nasal C.pneumoniae (PCR) NOT DETECTED Ben Human Metapneumo PCR NOT DETECTED Nasal M.pneumoniae (PCR) NOT DETECTED Nasal SARS-CoV-2 (PCR) NOT DETECTED Ethyl Alcohol Blood Type O NEGATIVE Blood Type Recheck Antibody Screen NEGATIVE PD MEDICAL DECISION MAKING - ED course Complexity details: reviewed old records, reviewed results, re-evaluated patient, considered differential, d/w patient ED course: Patient was treated with IV fluids and Zofran, as well as Ativan, followed by phenobarbital IV. She was also given a liter 0.9 normal saline to start with, as well as a banana bag. On reevaluation, the patient was still significantly tachycardic. Her white blood cell count had been modestly elevated and her Lipase was also mildly elevated. I felt given her persistent, significant tachycardia in the setting of alcoholism and Hematemesis, the patient should stay in the Hospital. I spoke with Dr. Vera, who agreed to admit the patient to her service. Departure - Departure Disposition: [facility] DC/Xfer Clinical Impression: Alcohol withdrawal Qualifiers: Complication of substance-induced condition: uncomplicated Qualified Code(s): F10.230 - Alcohol dependence with withdrawal, uncomplicated Pancreatitis Qualifiers: Chronicity: acute Pancreatitis type: alcohol induced Acute pancreatitis complication: unspecified Qualified Code(s): K85.20 - Alcohol induced acute pancreatitis without necrosis or infection Condition: Critical Discharge Date/Time: 12/12/20 02:03
[2020-12-12] MEDS ORDERED: PROCHLORPERAZINE 10 MG/2 ML VIAL IVP PRN (00:43)
[2020-12-12] MEDS ORDERED: ONDANSETRON 4 MG/2 ML VIAL IVP PRN (00:43)
[2020-12-12 00:58] LABS: VBG PH 7.097 (7.31-7.41)
[2020-12-12 00:59] LABS: VBG BASE EXCESS -19.6 mmol/L (-2 - +2); VBG HCO3 8.8 mmol/L (23-28); VBG OXYGEN SATURATION 65.5 % (60-80); VBG PCO2 29.1 mmHg (41-51); VBG PO2 41.4 mmHg (25-47); VBG TOTAL CO2 9.7 mmol/L (24-29)
[2020-12-12] MEDS ORDERED: LORazepam 2 MG/ML VIAL IVP PRN (01:00)
[2020-12-12] MEDS ORDERED: IOPAMIDOL-300 100 ML VIAL ONE (01:03)
[2020-12-12 01:05] LABS: INR 1.2 (0.8-1.2); PT - PROTHROMBIN TIME 13.5 secs (9.9-12.6)
--- OUTSIDE RECORDS SUMMARY | 2020-12-12 01:08 | EXTERNAL MEDICAL SUMMARY RPT | Continuity of Care Document ---
:1975 Demographics Phone Unavailable Preferred Language Unknown Marital Status Unknown Uatsdin Affiliation Unknown Race Unknown Ethnic Group Unknown Author Organization [facility] Address [address] [place] [address] Phone Social History date description facility [phone]
[2020-12-12 01:28] LABS: MUDS CUTOFF CONCENTRATIONS CUTOFF CONC BELOW:
[2020-12-12 01:29] LABS: BILIRUBIN,URINE NEGATIVE (NEGATIVE); GLUCOSE, URINE (UA) NEGATIVE (NEGATIVE); KETONES,URINE (UA) >=80 mg/dL (NEGATIVE); LEUKOCYTE ESTERASE, URINE NEGATIVE (NEGATIVE); NITRITE,URINE NEGATIVE (NEGATIVE); OCCULT BLOOD,URINE LARGE (NEGATIVE); PROTEIN,URINE 30 mg/dL (NEGATIVE); UROBILINOGEN,URINE 0.2 (NORMAL) E.U./dL (NORMAL)
[2020-12-12 01:31] LABS: CLARITY,URINE CLEAR (CLEAR)
[2020-12-12 01:32] LABS: HCG UR QUAL NEGATIVE
[2020-12-12 01:35] LABS: B. PARAPERTUSSIS- RESP PCR PAN NOT DETECTED; B. PERTUSSIS- RESP PCR PANEL NOT DETECTED; C. PNEUMONIAE- RESP PCR PANEL NOT DETECTED; CORONAVIRUS 229E-RESP PCR NOT DETECTED; CORONAVIRUS HKU1-RESP PCR NOT DETECTED; CORONAVIRUS NL63-RESP PCR NOT DETECTED; CORONAVIRUS OC43-RESP PCR NOT DETECTED; HUMAN METAPNEUMOVIRUS NOT DETECTED; INFLUENZA A- RESP PCR PANEL NOT DETECTED; INFLUENZA B - RESP PCR PANEL NOT DETECTED; M. PNEUMONIAE- RESP PCR PANEL NOT DETECTED; PARAINFLUENZA VIRUS 1 NOT DETECTED; PARAINFLUENZA VIRUS 2 NOT DETECTED; PARAINFLUENZA VIRUS 3 NOT DETECTED; PARAINFLUENZA VIRUS 4 NOT DETECTED; RHINOVIRUS/ENTEROVIRUS NOT DETECTED; RSV- RESP PCR PANEL NOT DETECTED; SARS-CoV-2 -RESP PCR PANEL NOT DETECTED
[2020-12-12 01:40] LABS: AMPHETAMINE SCREEN,URINE NEGATIVE (NEGATIVE); BARBITURATE SCREEN,UR NEGATIVE (NEGATIVE); BENZODIAZEPINES SCREEN, URINE NEGATIVE (NEGATIVE); COCAINE SCREEN URINE NEGATIVE (NEGATIVE); METHADONE SCREEN, URINE NEGATIVE (NEGATIVE); METHAMPHETAMINES SCREEN, URINE NEGATIVE (NEGATIVE); OPIATE SCREEN, URINE NEGATIVE (NEGATIVE); OXYCODONE SCREEN, URINE NEGATIVE (NEGATIVE); PROPOXYPHENE SCREEN, URINE NEGATIVE (NEGATIVE); THC CANNABINOID SCREEN, URINE NEGATIVE (NEGATIVE); TRICYCLIC ANTIDEPRESSANT,URINE NEGATIVE (NEGATIVE)
[2020-12-12 01:40] LABS: BACTERIA,URINE Rare /HPF (None Seen); CASTS, URINE 3-5 Hyaline Casts /LPF; SQUAMOUS EPITHELIAL CELL,UR MOD Squamous (<= Few); WBC,URINE 0-3 /HPF (0-5)
[2020-12-12] MEDS ORDERED: IOPAMIDOL-300 100 ML VIAL IVP ONE (01:55)
[2020-12-12] MEDS: SODIUM CHLORIDE FLUSH 0.9% 10 ML SYRINGE IVP SCH ×3 (02:08→17:35)
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
[2020-12-12 05:16] LABS: BASOPHILS # (AUTO) 0.1 10^3/uL (0.0-0.1); BASOPHILS % (AUTO) 0.3 %; HGB - HEMOGLOBIN 12.5 g/dL (12.0-16.0); LYMPHOCYTES # (AUTO) 1.4 10^3/uL (1.5-3.5); LYMPHOCYTES % (AUTO) 8.3 %; MEAN CORPUSCULAR HEMOGLOBIN 31.6 pg (27.0-31.0); MEAN CORPUSCULAR HGB CONC 32.9 g/dL (32.0-36.0); MEAN CORPUSCULAR VOLUME 96.2 fL (81.0-99.0); MEAN PLATELET VOLUME 9.6 fL (7.9-10.8); MONOCYTES # (AUTO) 0.7 10^3/uL (0.0-1.0); MONOCYTES % (AUTO) 4.2 %; NEUTROPHILS # (AUTO) 14.6 10^3/uL (1.5-6.6); NEUTROPHILS % (AUTO) 86.7 %; PLT - PLATELET COUNT 207 10^3/uL (130-450); RED BLOOD COUNT 3.95 10^6/uL (4.20-5.40); RED CELL DISTRIBUTION WIDTH 17.1 % (12.0-15.0); WHITE BLOOD COUNT 16.8 x10^3/uL (4.8-10.8)
[2020-12-12 05:32] LABS: ALBUMIN 4.3 g/dL (3.2-5.5); ALBUMIN/GLOBULIN RATIO 1.6 (1.0-2.2); BILIRUBIN,TOTAL 1.7 mg/dL (0.2-1.0); CALCIUM 8.4 mg/dL (8.5-10.3); CREATININE 0.7 mg/dL (0.4-1.0); PHOSPHORUS 1.8 mg/dL (2.5-4.6); POTASSIUM 4.3 mmol/L (3.5-5.0)
[2020-12-12] MEDS ORDERED: MAGNESIUM SULFATE 2 GRAM 2 GM/50 ML BAG IV ONE (08:30)
[2020-12-12] MEDS ORDERED: chlordiazePOXIDE 25 MG CAPSULE PO SCH (09:00)
[2020-12-12] MEDS ORDERED: NEUTRA-PHOS 250 MG TABLET PO SCH (09:00)
[2020-12-12] MEDS ORDERED: POTASSIUM PHOSPHATE 15 MMOL in SODIUM CHLORIDE 0.9% 250 ML IV ONE (09:00)
--- NOTE | 2020-12-12 09:00 | CT Report ---
PROCEDURE: Abdomen/Pelvis W INDICATIONS: Nausea vomiting, pancreatitis suspected CONTRAST: IV CONTRAST: Isovue 300 ml: 100 PO CONTRAST: *NO PO CONTRAST TECHNIQUE: After the administration of intravenous contrast, 5 mm thick sections acquired from the diaphragms to the symphysis. 5 mm thick coronal and sagittal reformats were acquired. For radiation dose reducti on, the following was used: automated exposure control, adjustment of mA and/or kV according to ascencion ent size. COMPARISON: CT abdomen and pelvis with contrast, 05/05/2020 and 01/19/2020. Ultrasound abdomen, 2019. FINDINGS: Image quality: Excellent. ABDOMEN: Lung bases: Lung bases are clear. Heart size is normal. Solid organs: Severe hepatic steatosis. Liver and spleen are normal in size and enhancement. Gallbl adder Biliary system is non dilated. Subtle stranding around the pancreas suggesting mild pancre atitis. No adrenal nodules. There is a 3 mm stone in the left kidney. Kidneys demonstrate normal si ze and enhancement, without hydronephrosis. Peritoneum and bowel: Mild diffuse colonic wall thickening is present. Bowel loops demonstrate bob l wall thickness and caliber. No free fluid or air. Nodes and vessels: No retroperitoneal or mesenteric adenopathy by size criteria. Aorta and inferior vena cava are normal in size. Miscellaneous: No ventral hernias. PELVIS: Genitourinary: Bladder wall thickness is normal. Uterus is normal. There is a 1.7 cm cyst in the le ft ovary, compatible with a dominant ovarian follicle. Right ovary is unremarkable. No free fluid in pelvis. Miscellaneous: No inguinal hernias or adenopathy. Bones: No suspicious bony lesions. No vertebral body compression fractures. IMPRESSION: 1. Subtle stranding around the pancreas suggesting mild pancreatitis. 2. Severe hepatic steatosis. 3. A 3 mm nonobstructive stone in left kidney. 4. Mild diffuse colonic wall thickening is present as seen on the last exam. Differential diagnoses i nclude artifact from inadequate distention versus colitis, possibly related to inflammatory bowel dis ease. Recommend clinical correlation. No significant discrepancy with the preliminary interpretation. Reviewed by: Rui Wesley MD on 12/12/2020 8:59 AM PDT Approved by: Rui Wesley MD on 12/12/2020 8:59 AM PDT Station ID: [id number]
[2020-12-12] MEDS: FAMOTIDINE 20 MG/2 ML VIAL IVP SCH ×2 (09:24→21:06)
[2020-12-12] MEDS: SODIUM CHLORIDE 0.9% 1,000 ML IV SCH ×2 (09:27→17:34)
[2020-12-12] MEDS: MORPHINE 2 MG/ML CARPUJECT IVP PRN ×2 (09:51→12:23)
[2020-12-12] MEDS: MAGNESIUM OXIDE 400 MG TABLET PO SCH (10:05)
[2020-12-12] MEDS: chlordiazePOXIDE 25 MG CAPSULE PO SCH ×3 (10:06→23:48)
[2020-12-12] MEDS: THIAMINE 100 MG TABLET PO SCH (10:06)
[2020-12-12] MEDS: SODIUM CHLORIDE FLUSH 0.9% 10 ML SYRINGE IVP PRN (12:27)
[2020-12-12] MEDS ORDERED: LABETALOL 20 MG/4 ML SYRINGE IVP PRN (15:20)
[2020-12-12] MEDS: HYDROmorphone 1 MG/ML CARPUJECT IVP PRN ×3 (15:45→23:48)
[2020-12-12] MEDS ORDERED: MULTIVITAMIN 10 ML, THIAMINE INJ 100 MG, FOLIC ACID INJ 1 MG in SODIUM CHLORIDE 0.9% 1,... IV SCH (20:00)
[2020-12-12] MEDS: cloNIDine 0.1 MG TABLET PO SCH (21:06)
[2020-12-13] MEDS: SODIUM CHLORIDE 0.9% 1,000 ML IV SCH ×3 (01:18→18:11)
[2020-12-13] MEDS: HYDROmorphone 1 MG/ML CARPUJECT IVP PRN ×8 (03:30→22:56)
[2020-12-13] MEDS: SODIUM CHLORIDE FLUSH 0.9% 10 ML SYRINGE IVP SCH ×3 (04:45→18:12)
[2020-12-13 04:53] LABS: BASOPHILS # (AUTO) 0.1 10^3/uL (0.0-0.1); BASOPHILS % (AUTO) 0.5 %; EOSINOPHILS # (AUTO) 0.1 10^3/uL (0.0-0.7); EOSINOPHILS % (AUTO) 0.4 %; HCT - HEMATOCRIT 31.8 % (37.0-47.0); LYMPHOCYTES # (AUTO) 2.7 10^3/uL (1.5-3.5); MEAN CORPUSCULAR HEMOGLOBIN 32.4 pg (27.0-31.0); MEAN CORPUSCULAR HGB CONC 34.6 g/dL (32.0-36.0); MEAN CORPUSCULAR VOLUME 93.8 fL (81.0-99.0); MEAN PLATELET VOLUME 9.6 fL (7.9-10.8); MONOCYTES # (AUTO) 0.5 10^3/uL (0.0-1.0); MONOCYTES % (AUTO) 3.7 %; NEUTROPHILS # (AUTO) 8.8 10^3/uL (1.5-6.6); PLT - PLATELET COUNT 153 10^3/uL (130-450); RED BLOOD COUNT 3.39 10^6/uL (4.20-5.40); RED CELL DISTRIBUTION WIDTH 16.8 % (12.0-15.0); WHITE BLOOD COUNT 12.1 x10^3/uL (4.8-10.8)
[2020-12-13 05:08] LABS: ALBUMIN 3.6 g/dL (3.2-5.5); ALBUMIN/GLOBULIN RATIO 1.7 (1.0-2.2); BILIRUBIN,TOTAL 1.7 mg/dL (0.2-1.0); CALCIUM 8.6 mg/dL (8.5-10.3); CREATININE 0.4 mg/dL (0.4-1.0); POTASSIUM 3.3 mmol/L (3.5-5.0); TOTAL PROTEIN 5.7 g/dL (6.7-8.2)
[2020-12-13] MEDS: chlordiazePOXIDE 25 MG CAPSULE PO SCH ×3 (06:35→18:12)
[2020-12-13 07:18] LABS: MAGNESIUM 2.1 mg/dL (1.7-2.8); PHOSPHORUS 1.2 mg/dL (2.5-4.6)
--- NOTE | 2020-12-13 07:48 | PROVIDER PROGRESS NOTE ---
Assessment/Plan - Problem List (1) Alcoholic pancreatitis Qualifiers: Chronicity: acute Acute pancreatitis complication: unspecified Qualified Code(s): K85.20 - Alcohol induced acute pancreatitis without necrosis or infection Assessment/Plan: Lipase level is 67. Yesterday was 142. Patient receiving IV hydration with normal saline at 125 mils per hour Pain management with Dilaudid 1 mg IV every 2 hours as needed and [place]. CIWA protocol initiated. Patient has been on Librium 25 mg 4 times daily scheduled. Ativan ordered as needed. Patient receiving magnesium and vitamin B1 orally. (2) Alcoholic ketoacidosis Assessment/Plan: Improved/resolved with IV hydration. Patient's anion gap is 10. 2 days ago it was 32. Patient's bicarbonate level has improved from 9 to 21 Patient tolerated a clear liquid diet so her diet was advanced to full liquid diet. (3) Alcohol abuse Assessment/Plan: CIWA protocol initiated. Librium 25 mg 4 times daily scheduled ordered. Ativan ordered as needed. Patient received a banana bag. Patient is on oral vitamin B1 and magnesium. (4) Dehydration Assessment/Plan: Patient has been receiving normal saline at 125 mL/h. Patient's estimated GFR has improved from 54 to 174 (5) Nausea & vomiting Assessment/Plan: Improved On zofran and compazine prn Tolerated a clear liquid diet. Diet advanced to full liquid diet. (6) Hypokalemia Assessment/Plan: Replacing per ICU electrolyte protocol - Current Meds Current Meds: Current Medications Generic Name Dose Route Start Last Admin Trade Name Freq PRN Reason Stop Dose Admin Chlordiazepoxide HCl 25 mg 12/12/20 10:00 12/13/20 06:35 Chlordiazepoxide 25 Mg Capsule PO 12/13/20 18:01 25 mg Q6HR AL Administration Clonidine HCl 0.1 mg 12/12/20 21:00 12/12/20 21:06 Clonidine 0.1 Mg Tablet PO 0.1 mg BID AL Administration Famotidine 20 mg 12/12/20 09:00 12/12/20 21:06 Famotidine 20 Mg/2 Ml Vial IVP 20 mg BID AL Administration Hydromorphone HCl 1 mg 12/12/20 15:13 12/13/20 06:44 Hydromorphone 1 Mg/Ml Carpuject IVP 1 mg Q2HR PRN Administration PAIN Sodium Chloride 1,000 mls @ 125 mls/hr 12/12/20 09:00 12/13/20 01:18 Normal Saline 0.9% IV 125 mls/hr .Q8H AL Administration Labetalol HCl 10 mg 12/12/20 15:20 12/12/20 15:48 Labetalol 20 Mg/4 Ml Syringe IVP 10 mg Q4H PRN Administration PER PHYSICIAN ORDER Lorazepam 2 mg 12/12/20 01:00 12/12/20 02:09 Lorazepam 2 Mg/Ml Vial IVP 2 mg Q30M PRN Administration CIWA >8 Protocol Magnesium Oxide 400 mg 12/12/20 09:00 12/12/20 10:05 Magnesium Oxide 400 Mg Tablet PO 400 mg DAILYWM AL Administration Sodium Chloride 10 ml 12/12/20 01:00 12/13/20 04:45 Sodium Chloride Flush 0.9% 10 Ml Syringe IVP Not Given 0100,0900,1700 AL Sodium Chloride 10 ml 12/12/20 00:43 12/12/20 12:27 Sodium Chloride Flush 0.9% 10 Ml Syringe IVP 10 ml PRN PRN Administration NEEDED PER PROVIDER ORDERS Thiamine HCl 100 mg 12/12/20 09:00 12/12/20 10:06 Thiamine 100 Mg Tablet PO 100 mg DAILY AL Administration - Lab Result Fish Bone Diagrams: 12/13/20 04:41 12/13/20 04:41 - Additional Planning My Orders: My Active Orders 12/12/20 09:00 Magnesium Oxide [Mag Ox] 400 mg PO DAILYWM Sodium Chloride 0.9% [Normal Saline 0.9%] 1,000 ml IV 125 mls/hr Thiamine [Vitamin B-1] 100 mg PO DAILY 12/12/20 10:00 chlordiazePOXIDE [Librium] 25 mg PO Q6HR 12/12/20 15:13 HYDROmorphone 1MG CARP [Dilaudid Inj Carp] 1 mg IVP Q2HR PRN 12/12/20 15:20 Labetalol Syringe [Trandate Syringe] 10 mg IVP Q4H PRN 12/12/20 21:00 cloNIDine [Catapres] 0.1 mg PO BID 12/14/20 05:00 LIPASE [CHEM] DAILYLAB 12/15/20 05:00 LIPASE [CHEM] DAILYLAB Subjective - Subjective Patient Reports: Other (Patient is more awake alert oriented and communicative today. She is able to tolerate a clear liquid diet. Her abdominal pain and chronic back pain persist. She denies chest pain, dyspnea, nausea, vomiting, fever or chills. She is not tremulous.) Objective Vital Signs: Vital Signs - 24 hr 12/12/20 12/12/20 12/12/20 08:12 10:00 11:00 Temperature 37.2 C Heart Rate [ 120 H 111 H 112 H Monitoring electrodes] Respiratory 26 H 26 H 24 Rate Blood Pressure 151/110 H 168/115 H 168/115 H [Right Brachial artery] O2 Saturation 95 97 97 12/12/20 12/12/20 12/12/20 13:00 13:59 15:10 Temperature Heart Rate [ 101 H 102 H 104 H Monitoring electrodes] Respiratory 22 28 H 22 Rate Blood Pressure 148/115 H 141/115 H [Right Brachial artery] O2 Saturation 95 95 95 12/12/20 12/12/20 12/12/20 15:55 15:56 16:00 Temperature Heart Rate [ 106 H 98 94 Monitoring electrodes] Respiratory 18 17 16 Rate Blood Pressure 136/103 H 121/93 H 114/94 H [Right Brachial artery] O2 Saturation 90 L 95 96 12/12/20 12/12/20 12/12/20 16:15 16:30 16:45 Temperature 37.2 C Heart Rate [ 99 97 94 Monitoring electrodes] Respiratory 12 Rate Blood Pressure 107/86 H 115/88 H 120/95 H [Right Brachial artery] O2 Saturation 98 12/12/20 12/12/20 12/12/20 17:00 18:00 19:00 Temperature Heart Rate [ 100 94 95 Monitoring electrodes] Respiratory 15 22 17 Rate Blood Pressure 125/96 H 134/107 H 114/83 H [Right Brachial artery] O2 Saturation 99 94 93 12/12/20 12/12/20 12/13/20 21:00 22:01 01:00 Temperature 36.7 C Heart Rate [ 93 91 90 Monitoring electrodes] Respiratory 14 14 11 L Rate Blood Pressure 124/94 H 120/95 H 117/96 H [Right Brachial artery] O2 Saturation 96 94 94 12/13/20 12/13/20 04:11 07:15 Temperature 36.7 C Heart Rate [ 92 91 Monitoring electrodes] Respiratory 10 L 10 L Rate Blood Pressure 109/86 H 107/81 H [Right Brachial artery] O2 Saturation 93 97 Oxygen O2 Source Room air I&O (Last 24 Hrs): Intake and Output Totals x24h 12/11/20 12/12/20 12/13/20 23:59 23:59 23:59 Intake Total 1000 2854.367 1062.5 Output Total 2575 800 Balance 1000 279.367 262.5 General: Alert, Oriented x3, No acute distress HEENT: PERRLA, EOMI Neck: Supple, No JVD Neuro: Alert, Non Focal, Oriented Times 3 Cardiovascular: No murmurs, Other (Mild sinus tachycardia) Respiratory: Chest non-tender, No respiratory distress, Breath sounds nml Abdomen: Normal bowel sounds, Soft, Other (tenderness to palpation) Extremities: No clubbing, No cyanosis, No edema Skin: No rashes, No breakdown, No significant lesion - Results Results: Laboratory Results WBC 12.1 x10^3/uL (4.8-10.8) H 12/13/20 04:41 RBC 3.39 10^6/uL (4.20-5.40) L 12/13/20 04:41 Hgb 11.0 g/dL (12.0-16.0) L 12/13/20 04:41 Hct 31.8 % (37.0-47.0) L 12/13/20 04:41 MCV 93.8 fL (81.0-99.0) 12/13/20 04:41 MCH 32.4 pg (27.0-31.0) H 12/13/20 04:41 MCHC 34.6 g/dL (32.0-36.0) 12/13/20 04:41 RDW 16.8 % (12.0-15.0) H 12/13/20 04:41 Plt Count 153 10^3/uL (130-450) 12/13/20 04:41 MPV 9.6 fL (7.9-10.8) 12/13/20 04:41 Neut # (Auto) 8.8 10^3/uL (1.5-6.6) H 12/13/20 04:41 Lymph # (Auto) 2.7 10^3/uL (1.5-3.5) 12/13/20 04:41 [place] # (Auto) 0.5 10^3/uL (0.0-1.0) 12/13/20 04:41 Eos # (Auto) 0.1 10^3/uL (0.0-0.7) 12/13/20 04:41 Baso # (Auto) 0.1 10^3/uL (0.0-0.1) 12/13/20 04:41 Absolute Nucleated RBC 0.00 x10^3/uL 12/13/20 04:41 Nucleated RBC % 0.0 /100WBC 12/13/20 04:41 PT 13.5 secs (9.9-12.6) H 12/11/20 21:00 INR 1.2 (0.8-1.2) 12/11/20 21:00 VBG pH 7.097 (7.31-7.41) L 12/12/20 00:55 VBG pCO2 29.1 mmHg (41-51) L 12/12/20 00:55 VBG pO2 41.4 mmHg (25-47) 12/12/20 00:55 VBG HCO3 8.8 mmol/L (23-28) L 12/12/20 00:55 VBG Total CO2 9.7 mmol/L (24-29) L 12/12/20 00:55 VBG O2 Saturation 65.5 % (60-80) 12/12/20 00:55 VBG Base Excess -19.6 mmol/L (-2 - +2) L 12/12/20 00:55 Sodium 135 mmol/L (135-145) 12/13/20 04:41 Potassium 3.3 mmol/L (3.5-5.0) L 12/13/20 04:41 Chloride 104 mmol/L (101-111) 12/13/20 04:41 Carbon Dioxide 21 mmol/L (21-32) 12/13/20 04:41 Anion Gap 10.0 (6-13) 12/13/20 04:41 BUN 13 mg/dL (6-20) 12/13/20 04:41 Creatinine 0.4 mg/dL (0.4-1.0) 12/13/20 04:41 Estimated GFR (MDRD) 174 (>89) 12/13/20 04:41 Glucose 100 mg/dL (70-100) 12/13/20 04:41 Calcium 8.6 mg/dL (8.5-10.3) 12/13/20 04:41 Phosphorus 1.2 mg/dL (2.5-4.6) L 12/13/20 04:41 Magnesium 2.1 mg/dL (1.7-2.8) 12/13/20 04:41 Total Bilirubin 1.7 mg/dL (0.2-1.0) H 12/13/20 04:41 GGT 122 IU/L (8-38) H 12/12/20 04:20 AST 44 IU/L (10-42) H 12/13/20 04:41 ALT 34 IU/L (10-60) 12/13/20 04:41 Alkaline Phosphatase 76 IU/L (42-121) 12/13/20 04:41 Total Protein 5.7 g/dL (6.7-8.2) L 12/13/20 04:41 Albumin 3.6 g/dL (3.2-5.5) 12/13/20 04:41 Globulin 2.1 g/dL (2.1-4.2) 12/13/20 04:41 Albumin/Globulin Ratio 1.7 (1.0-2.2) 12/13/20 04:41 Lipase 67 U/L (22-51) H 12/13/20 04:41 Urine Color YELLOW 12/11/20 01:20 Urine Clarity CLEAR (CLEAR) 12/11/20 01:20 Urine pH 6.0 PH (5.0-7.5) 12/11/20 01:20 Ur Specific [place] >=1.030 (1.002-1.030) H 12/11/20 01:20 Urine Protein 30 mg/dL (NEGATIVE) H 12/11/20 01:20 Urine Glucose (UA) NEGATIVE mg/dL (NEGATIVE) 12/11/20 01:20 Urine Ketones >=80 mg/dL (NEGATIVE) H 12/11/20 01:20 Urine Occult Blood LARGE (NEGATIVE) H 12/11/20 01:20 Urine Nitrite NEGATIVE (NEGATIVE) 12/11/20 01:20 Urine Bilirubin NEGATIVE (NEGATIVE) 12/11/20 01:20 Urine Urobilinogen 0.2 (NORMAL) E.U./dL (NORMAL) 12/11/20 01:20 Ur Leukocyte Esterase NEGATIVE (NEGATIVE) 12/11/20 01:20 Urine RBC 6-10 /HPF (0-5) H 12/11/20 01:20 Urine WBC 0-3 /HPF (0-5) 12/11/20 01:20 Ur Squamous Epith Cells MOD Squamous (<= Few) H 12/11/20 01:20 Urine Bacteria Rare /HPF (None Seen) 12/11/20 01:20 Urine Casts 3-5 Hyaline Casts /LPF 12/11/20 01:20 Ur Microscopic Review INDICATED 12/11/20 01:20 Urine Culture Comments NOT INDICATED 12/11/20 01:20 Urine HCG, Qual NEGATIVE 12/12/20 01:21 Nasal Adenovirus (PCR) NOT DETECTED 12/12/20 00:38 Nasal B. parapertussis DNA (PCR) NOT DETECTED 12/12/20 00:38 Nasal Coronavir 229E PCR NOT DETECTED 12/12/20 00:38 Nasal Coronavir HKU1 PCR NOT DETECTED 12/12/20 00:38 Nasal Coronavir NL63 PCR NOT DETECTED 12/12/20 00:38 Nasal Coronavir OC43 PCR NOT DETECTED 12/12/20 00:38 Nasal Enterovir/Rhinovir PCR NOT DETECTED 12/12/20 00:38 Nasal Influenza B PCR NOT DETECTED 12/12/20 00:38 Nasal Influenza A PCR NOT DETECTED 12/12/20 00:38 Nasal Parainfluen 1 PCR NOT DETECTED 12/12/20 00:38 Nasal Parainfluen 2 PCR NOT DETECTED 12/12/20 00:38 Nasal Parainfluen 3 PCR NOT DETECTED 12/12/20 00:38 Nasal Parainfluen 4 PCR NOT DETECTED 12/12/20 00:38 Nasal RSV (PCR) NOT DETECTED 12/12/20 00:38 Nasal Screen MRSA (PCR) NEGATIVE (NEGATIVE) 12/12/20 01:45 Nasal B.pertussis DNA PCR NOT DETECTED 12/12/20 00:38 Nasal C.pneumoniae (PCR) NOT DETECTED 12/12/20 00:38 Rm Human Metapneumo PCR NOT DETECTED 12/12/20 00:38 Nasal M.pneumoniae (PCR) NOT DETECTED 12/12/20 00:38 Nasal SARS-CoV-2 (PCR) NOT DETECTED 12/12/20 00:38 Urine Opiates Screen NEGATIVE (NEGATIVE) 12/12/20 01:20 Ur Oxycodone Screen NEGATIVE (NEGATIVE) 12/12/20 01:20 Urine Methadone Screen NEGATIVE (NEGATIVE) 12/12/20 01:20 Ur Propoxyphene Screen NEGATIVE (NEGATIVE) 12/12/20 01:20 Ur Barbiturates Screen NEGATIVE (NEGATIVE) 12/12/20 01:20 Ur Tricyclics Screen NEGATIVE (NEGATIVE) 12/12/20 01:20 Ur Phencyclidine Scrn NEGATIVE (NEGATIVE) 12/12/20 01:20 Ur Amphetamine Screen NEGATIVE (NEGATIVE) 12/12/20 01:20 U Methamphetamines Scrn NEGATIVE (NEGATIVE) 12/12/20 01:20 U Benzodiazepines Scrn NEGATIVE (NEGATIVE) 12/12/20 01:20 Urine Cocaine Screen NEGATIVE (NEGATIVE) 12/12/20 01:20 U Cannabinoids Screen NEGATIVE (NEGATIVE) 12/12/20 01:20 Ethyl Alcohol 123.3 mg/dL 12/11/20 21:21 Blood Type O NEGATIVE 12/11/20 21:27 Blood Type Recheck O NEGATIVE 12/11/20 21:21 Antibody Screen NEGATIVE 12/11/20 21:27 ABX Reporting Has patient been on IV antibiotics over the past 48 hours?: No
[2020-12-13] MEDS ORDERED: POTASSIUM CHLORIDE 20 MEQ TABLET PO ONE (08:00)
[2020-12-13] MEDS: MAGNESIUM OXIDE 400 MG TABLET PO SCH (08:15)
[2020-12-13] MEDS: THIAMINE 100 MG TABLET PO SCH (08:15)
[2020-12-13] MEDS: cloNIDine 0.1 MG TABLET PO SCH ×2 (08:15→20:59)
[2020-12-13] MEDS: FAMOTIDINE 20 MG/2 ML VIAL IVP SCH (08:16)
--- NOTE | 2020-12-13 10:17 | PHARMACY PROGRESS NOTE ---
- Best Possible Medication History Admit Date and Time: 12/12/20 0043 Processed by: Pharmacy Medication History completed: Yes Patient Interview: Pt unable to participate Secondary Source(s): Physician records As the person ultimately responsible for medication therapy, providers are able to order a medication from an existing home medication list in [facility] via the "Reconcile Routine" prior to Confirmation of that medication by merchandise support associate. Such practice is discouraged except when the physician, in their clinical judgment, deems that a medical need exists for a medication without regard to previous use.
[2020-12-13] MEDS: HYDROcodone/ACETAM 7.5 MG/325 MG 15 ML UDC PO PRN ×2 (14:51→20:54)
[2020-12-13] MEDS: NICOTINE 14 MG PATCH TOP SCH (18:11)
[2020-12-13] MEDS: FAMOTIDINE 20 MG TABLET PO SCH (20:59)
[2020-12-14] MEDS: SODIUM CHLORIDE FLUSH 0.9% 10 ML SYRINGE IVP SCH ×4 (01:03→23:27)
[2020-12-14] MEDS: HYDROmorphone 1 MG/ML CARPUJECT IVP PRN ×7 (01:03→23:33)
[2020-12-14] MEDS: SODIUM CHLORIDE 0.9% 1,000 ML IV SCH ×3 (02:54→19:28)
[2020-12-14 05:22] LABS: BASOPHILS % (AUTO) 0.7 %; EOSINOPHILS % (AUTO) 0.7 %; HCT - HEMATOCRIT 28.3 % (37.0-47.0); HGB - HEMOGLOBIN 9.7 g/dL (12.0-16.0); LYMPHOCYTES # (AUTO) 2.3 10^3/uL (1.5-3.5); LYMPHOCYTES % (AUTO) 39.6 %; MEAN CORPUSCULAR HEMOGLOBIN 32.3 pg (27.0-31.0); MEAN CORPUSCULAR HGB CONC 34.3 g/dL (32.0-36.0); MEAN CORPUSCULAR VOLUME 94.3 fL (81.0-99.0); MEAN PLATELET VOLUME 10.2 fL (7.9-10.8); MONOCYTES # (AUTO) 0.3 10^3/uL (0.0-1.0); MONOCYTES % (AUTO) 4.5 %; NEUTROPHILS # (AUTO) 3.1 10^3/uL (1.5-6.6); NEUTROPHILS % (AUTO) 54.3 %; PLT - PLATELET COUNT 138 10^3/uL (130-450); RED CELL DISTRIBUTION WIDTH 16.8 % (12.0-15.0); WHITE BLOOD COUNT 5.8 x10^3/uL (4.8-10.8)
[2020-12-14 05:44] LABS: ALBUMIN 3.2 g/dL (3.2-5.5); ALBUMIN/GLOBULIN RATIO 1.5 (1.0-2.2); BILIRUBIN,TOTAL 1.2 mg/dL (0.2-1.0); CALCIUM 8.3 mg/dL (8.5-10.3); CREATININE 0.4 mg/dL (0.4-1.0); POTASSIUM 3.2 mmol/L (3.5-5.0); TOTAL PROTEIN 5.3 g/dL (6.7-8.2)
--- NOTE | 2020-12-14 07:20 | PROVIDER PROGRESS NOTE ---
Assessment/Plan - Problem List (1) Alcoholic pancreatitis Qualifiers: Chronicity: acute Acute pancreatitis complication: unspecified Qualified Code(s): K85.20 - Alcohol induced acute pancreatitis without necrosis or infection Assessment/Plan: Lipase level is 38. Yesterday was 67. Patient receiving IV hydration with normal saline at 125 mils per hour Pain management with Dilaudid 1 mg IV every 2 hours as needed and [place]. CIWA protocol . Librium discontinued Ativan ordered as needed. Patient receiving magnesium and vitamin B1 orally. Tolerating mechanical soft diet. Anticipating discharge home tomorrow 12/15/20 (2) Alcoholic ketoacidosis Assessment/Plan: Improved/resolved with IV hydration. Tolerated mechanical soft diet. (3) Alcohol abuse Assessment/Plan: CIWA protocol. Ativan as needed. Librium discontinued after 6 doses. Patient receiving thiamine and magnesium supplements. (4) Dehydration Assessment/Plan: Patient has been receiving normal saline at 125 mL/h. Patient's estimated GFR has improved from 54 to 174 (5) Nausea & vomiting Assessment/Plan: Improved On zofran and compazine prn Currently on mechanical soft diet. (6) Hypokalemia Assessment/Plan: Will replace and recheck. - Current Meds Current Meds: Current Medications Generic Name Dose Route Start Last Admin Trade Name Freq PRN Reason Stop Dose Admin Hydrocodone Bitart/Acetaminophen 15 ml 12/13/20 14:45 12/13/20 20:54 Hydrocodone/Acetam 7.5 Mg/325 Mg 15 Ml Udc PO 15 ml Q6HR PRN Administration PAIN Clonidine HCl 0.1 mg 12/12/20 21:00 12/13/20 20:59 Clonidine 0.1 Mg Tablet PO 0.1 mg BID AL Administration Famotidine 20 mg 12/13/20 21:00 12/13/20 20:59 Famotidine 20 Mg Tablet PO 20 mg BID AL Administration Hydromorphone HCl 1 mg 12/12/20 15:13 12/14/20 05:35 Hydromorphone 1 Mg/Ml Carpuject IVP 1 mg Q2HR PRN Administration PAIN Sodium Chloride 1,000 mls @ 125 mls/hr 12/12/20 09:00 12/14/20 02:54 Normal Saline 0.9% IV 125 mls/hr .Q8H AL Administration Labetalol HCl 10 mg 12/12/20 15:20 12/12/20 15:48 Labetalol 20 Mg/4 Ml Syringe IVP 10 mg Q4H PRN Administration PER PHYSICIAN ORDER Lorazepam 2 mg 12/12/20 01:00 12/12/20 02:09 Lorazepam 2 Mg/Ml Vial IVP 2 mg Q30M PRN Administration CIWA >8 Protocol Magnesium Oxide 400 mg 12/12/20 09:00 12/13/20 08:15 Magnesium Oxide 400 Mg Tablet PO 400 mg DAILYWM AL Administration Nicotine 1 patch 12/13/20 17:00 12/13/20 18:11 Nicotine 14 Mg Patch TOP 1 patch DAILY AL Administration Sodium Chloride 10 ml 12/12/20 01:00 12/14/20 01:03 Sodium Chloride Flush 0.9% 10 Ml Syringe IVP 10 ml 0100,0900,1700 AL Administration Sodium Chloride 10 ml 12/12/20 00:43 12/12/20 12:27 Sodium Chloride Flush 0.9% 10 Ml Syringe IVP 10 ml PRN PRN Administration NEEDED PER PROVIDER ORDERS Thiamine HCl 100 mg 12/12/20 09:00 12/13/20 08:15 Thiamine 100 Mg Tablet PO 100 mg DAILY AL Administration - Lab Result Fish Bone Diagrams: 12/14/20 05:13 12/14/20 05:13 - Additional Planning My Orders: My Active Orders 12/13/20 14:45 HYDROcodone/ACET 7.5/325 SHANKAR [Lortab 7.5/325 Shankar] 15 ml PO Q6HR PRN 12/13/20 17:00 Nicotine 14 mg Patch [Nicoderm] 1 patch TOP DAILY 12/13/20 18:39 Telemetry- [RC] Q4HR 12/14/20 09:00 polyethylene glycoL 3350 [Miralax] 17 gm PO DAILY 12/15/20 05:00 LIPASE [CHEM] DAILYLAB Subjective - Subjective Patient Reports: Other (Patient was seated in bedside chair at time of exam. C omplained of a poor night sleep. She reported improvement in her abdominal pain. She tolerated a soft mechanical diet. Denied any other complains.) Objective Vital Signs: Vital Signs - 24 hr 12/13/20 12/13/20 12/13/20 08:00 09:00 10:00 Temperature Heart Rate [ 94 88 100 Monitoring electrodes] Respiratory 17 10 L 13 Rate Blood Pressure 94/72 94/72 104/77 [Left Brachial artery] O2 Saturation 99 96 98 12/13/20 12/13/20 12/13/20 12:00 13:00 14:00 Temperature Heart Rate [ 85 89 101 H Monitoring electrodes] Respiratory 11 L 14 12 Rate Blood Pressure 92/73 95/79 100/80 [Left Brachial artery] O2 Saturation 96 97 98 12/13/20 12/13/20 12/14/20 17:00 18:37 00:01 Temperature 36.9 C 36.5 C Heart Rate [ 99 101 H 85 Monitoring electrodes] Respiratory 13 20 16 Rate Blood Pressure 107/78 113/87 H 93/65 [Left Brachial artery] O2 Saturation 97 98 100 12/14/20 05:43 Temperature 36.8 C Heart Rate [ 85 Monitoring electrodes] Respiratory 16 Rate Blood Pressure 99/66 [Left Brachial artery] O2 Saturation 98 Oxygen O2 Source Room air I&O (Last 24 Hrs): Intake and Output Totals x24h 12/12/20 12/13/20 12/14/20 23:59 23:59 23:59 Intake Total 2854.367 4662.500 1000 Output Total 2575 1420 Balance 433.004 0283.500 1000 General: Alert, Oriented x3, Moderate distress HEENT: PERRLA, EOMI Neck: Supple, No JVD Neuro: Alert, Non Focal, Oriented Times 3 Cardiovascular: Regular rate, No murmurs Respiratory: Chest non-tender, No respiratory distress, Breath sounds nml Abdomen: Normal bowel sounds, Soft, Other (mild tenderness to palpation) Extremities: No clubbing, No cyanosis, No edema Skin: No rashes, No breakdown - Results Results: Laboratory Results WBC 5.8 x10^3/uL (4.8-10.8) 12/14/20 05:13 RBC 3.00 10^6/uL (4.20-5.40) L 12/14/20 05:13 Hgb 9.7 g/dL (12.0-16.0) L 12/14/20 05:13 Hct 28.3 % (37.0-47.0) L 12/14/20 05:13 MCV 94.3 fL (81.0-99.0) 12/14/20 05:13 MCH 32.3 pg (27.0-31.0) H 12/14/20 05:13 MCHC 34.3 g/dL (32.0-36.0) 12/14/20 05:13 RDW 16.8 % (12.0-15.0) H 12/14/20 05:13 Plt Count 138 10^3/uL (130-450) 12/14/20 05:13 MPV 10.2 fL (7.9-10.8) 12/14/20 05:13 Neut # (Auto) 3.1 10^3/uL (1.5-6.6) 12/14/20 05:13 Lymph # (Auto) 2.3 10^3/uL (1.5-3.5) 12/14/20 05:13 [place] # (Auto) 0.3 10^3/uL (0.0-1.0) 12/14/20 05:13 Eos # (Auto) 0.0 10^3/uL (0.0-0.7) 12/14/20 05:13 Baso # (Auto) 0.0 10^3/uL (0.0-0.1) 12/14/20 05:13 Absolute Nucleated RBC 0.00 x10^3/uL 12/14/20 05:13 Nucleated RBC % 0.0 /100WBC 12/14/20 05:13 PT 13.5 secs (9.9-12.6) H 12/11/20 21:00 INR 1.2 (0.8-1.2) 12/11/20 21:00 VBG pH 7.097 (7.31-7.41) L 12/12/20 00:55 VBG pCO2 29.1 mmHg (41-51) L 12/12/20 00:55 VBG pO2 41.4 mmHg (25-47) 12/12/20 00:55 VBG HCO3 8.8 mmol/L (23-28) L 12/12/20 00:55 VBG Total CO2 9.7 mmol/L (24-29) L 12/12/20 00:55 VBG O2 Saturation 65.5 % (60-80) 12/12/20 00:55 VBG Base Excess -19.6 mmol/L (-2 - +2) L 12/12/20 00:55 Sodium 135 mmol/L (135-145) 12/14/20 05:13 Potassium 3.2 mmol/L (3.5-5.0) L 12/14/20 05:13 Chloride 105 mmol/L (101-111) 12/14/20 05:13 Carbon Dioxide 24 mmol/L (21-32) 12/14/20 05:13 Anion Gap 6.0 (6-13) 12/14/20 05:13 BUN 10 mg/dL (6-20) 12/14/20 05:13 Creatinine 0.4 mg/dL (0.4-1.0) 12/14/20 05:13 Estimated GFR (MDRD) 174 (>89) 12/14/20 05:13 Glucose 99 mg/dL (70-100) 12/14/20 05:13 Calcium 8.3 mg/dL (8.5-10.3) L 12/14/20 05:13 Phosphorus 1.2 mg/dL (2.5-4.6) L 12/13/20 04:41 Magnesium 2.1 mg/dL (1.7-2.8) 12/13/20 04:41 Total Bilirubin 1.2 mg/dL (0.2-1.0) H 12/14/20 05:13 GGT 122 IU/L (8-38) H 12/12/20 04:20 AST 38 IU/L (10-42) 12/14/20 05:13 ALT 25 IU/L (10-60) 12/14/20 05:13 Alkaline Phosphatase 73 IU/L (42-121) 12/14/20 05:13 Total Protein 5.3 g/dL (6.7-8.2) L 12/14/20 05:13 Albumin 3.2 g/dL (3.2-5.5) 12/14/20 05:13 Globulin 2.1 g/dL (2.1-4.2) 12/14/20 05:13 Albumin/Globulin Ratio 1.5 (1.0-2.2) 12/14/20 05:13 Lipase 38 U/L (22-51) 12/14/20 05:13 Urine Color YELLOW 12/11/20 01:20 Urine Clarity CLEAR (CLEAR) 12/11/20 01:20 Urine pH 6.0 PH (5.0-7.5) 12/11/20 01:20 Ur Specific [place] >=1.030 (1.002-1.030) H 12/11/20 01:20 Urine Protein 30 mg/dL (NEGATIVE) H 12/11/20 01:20 Urine Glucose (UA) NEGATIVE mg/dL (NEGATIVE) 12/11/20 01:20 Urine Ketones >=80 mg/dL (NEGATIVE) H 12/11/20 01:20 Urine Occult Blood LARGE (NEGATIVE) H 12/11/20 01:20 Urine Nitrite NEGATIVE (NEGATIVE) 12/11/20 01:20 Urine Bilirubin NEGATIVE (NEGATIVE) 12/11/20 01:20 Urine Urobilinogen 0.2 (NORMAL) E.U./dL (NORMAL) 12/11/20 01:20 Ur Leukocyte Esterase NEGATIVE (NEGATIVE) 12/11/20 01:20 Urine RBC 6-10 /HPF (0-5) H 12/11/20 01:20 Urine WBC 0-3 /HPF (0-5) 12/11/20 01:20 Ur Squamous Epith Cells MOD Squamous (<= Few) H 12/11/20 01:20 Urine Bacteria Rare /HPF (None Seen) 12/11/20 01:20 Urine Casts 3-5 Hyaline Casts /LPF 12/11/20 01:20 Ur Microscopic Review INDICATED 12/11/20 01:20 Urine Culture Comments NOT INDICATED 12/11/20 01:20 Urine HCG, Qual NEGATIVE 12/12/20 01:21 Nasal Adenovirus (PCR) NOT DETECTED 12/12/20 00:38 Nasal B. parapertussis DNA (PCR) NOT DETECTED 12/12/20 00:38 Nasal Coronavir 229E PCR NOT DETECTED 12/12/20 00:38 Nasal Coronavir HKU1 PCR NOT DETECTED 12/12/20 00:38 Nasal Coronavir NL63 PCR NOT DETECTED 12/12/20 00:38 Nasal Coronavir OC43 PCR NOT DETECTED 12/12/20 00:38 Nasal Enterovir/Rhinovir PCR NOT DETECTED 12/12/20 00:38 Nasal Influenza B PCR NOT DETECTED 12/12/20 00:38 Nasal Influenza A PCR NOT DETECTED 12/12/20 00:38 Nasal Parainfluen 1 PCR NOT DETECTED 12/12/20 00:38 Nasal Parainfluen 2 PCR NOT DETECTED 12/12/20 00:38 Nasal Parainfluen 3 PCR NOT DETECTED 12/12/20 00:38 Nasal Parainfluen 4 PCR NOT DETECTED 12/12/20 00:38 Nasal RSV (PCR) NOT DETECTED 12/12/20 00:38 Nasal Screen MRSA (PCR) NEGATIVE (NEGATIVE) 12/12/20 01:45 Nasal B.pertussis DNA PCR NOT DETECTED 12/12/20 00:38 Nasal C.pneumoniae (PCR) NOT DETECTED 12/12/20 00:38 Rm Human Metapneumo PCR NOT DETECTED 12/12/20 00:38 Nasal M.pneumoniae (PCR) NOT DETECTED 12/12/20 00:38 Nasal SARS-CoV-2 (PCR) NOT DETECTED 12/12/20 00:38 Urine Opiates Screen NEGATIVE (NEGATIVE) 12/12/20 01:20 Ur Oxycodone Screen NEGATIVE (NEGATIVE) 12/12/20 01:20 Urine Methadone Screen NEGATIVE (NEGATIVE) 12/12/20 01:20 Ur Propoxyphene Screen NEGATIVE (NEGATIVE) 12/12/20 01:20 Ur Barbiturates Screen NEGATIVE (NEGATIVE) 12/12/20 01:20 Ur Tricyclics Screen NEGATIVE (NEGATIVE) 12/12/20 01:20 Ur Phencyclidine Scrn NEGATIVE (NEGATIVE) 12/12/20 01:20 Ur Amphetamine Screen NEGATIVE (NEGATIVE) 12/12/20 01:20 U Methamphetamines Scrn NEGATIVE (NEGATIVE) 12/12/20 01:20 U Benzodiazepines Scrn NEGATIVE (NEGATIVE) 12/12/20 01:20 Urine Cocaine Screen NEGATIVE (NEGATIVE) 12/12/20 01:20 U Cannabinoids Screen NEGATIVE (NEGATIVE) 12/12/20 01:20 Ethyl Alcohol 123.3 mg/dL 12/11/20 21:21 Blood Type O NEGATIVE 12/11/20 21:27 Blood Type Recheck O NEGATIVE 12/11/20 21:21 Antibody Screen NEGATIVE 12/11/20 21:27 ABX Reporting Has patient been on IV antibiotics over the past 48 hours?: No
[2020-12-14] MEDS ORDERED: POTASSIUM CHLORIDE 20 MEQ TABLET PO ONE (08:00)
[2020-12-14] MEDS: MAGNESIUM OXIDE 400 MG TABLET PO SCH (08:34)
[2020-12-14] MEDS: FAMOTIDINE 20 MG TABLET PO SCH ×2 (08:34→20:40)
[2020-12-14] MEDS: NICOTINE 14 MG PATCH TOP SCH (08:35)
[2020-12-14] MEDS: polyethylene glycoL 3350 17 GM PACKET PO SCH (08:35)
[2020-12-14] MEDS: cloNIDine 0.1 MG TABLET PO SCH ×2 (08:35→20:40)
[2020-12-14] MEDS: THIAMINE 100 MG TABLET PO SCH (08:36)
[2020-12-14] MEDS: HYDROcodone/ACETAM 7.5 MG/325 MG 15 ML UDC PO PRN ×2 (11:33→18:27)
[2020-12-14] MEDS ORDERED: NEUTRA-PHOS 250 MG TABLET PO STA (16:29)
[2020-12-14] MEDS: SODIUM CHLORIDE FLUSH 0.9% 10 ML SYRINGE IVP PRN (19:41)
[2020-12-15] MEDS: HYDROcodone/ACETAM 7.5 MG/325 MG 15 ML UDC PO PRN ×2 (02:55→08:48)
[2020-12-15] MEDS: SODIUM CHLORIDE 0.9% 1,000 ML IV SCH ×2 (03:26→10:42)
[2020-12-15 06:37] LABS: CALCIUM 8.1 mg/dL (8.5-10.3); CREATININE 0.4 mg/dL (0.4-1.0); POTASSIUM 3.6 mmol/L (3.5-5.0)
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
[2020-12-15 08:25] LABS: BASOPHILS % (AUTO) 0.9 %; EOSINOPHILS # (AUTO) 0.1 10^3/uL (0.0-0.7); EOSINOPHILS % (AUTO) 1.8 %; HCT - HEMATOCRIT 25.6 % (37.0-47.0); HGB - HEMOGLOBIN 8.7 g/dL (12.0-16.0); LYMPHOCYTES % (AUTO) 44.4 %; MEAN CORPUSCULAR HEMOGLOBIN 32.8 pg (27.0-31.0); MEAN CORPUSCULAR VOLUME 96.6 fL (81.0-99.0); MEAN PLATELET VOLUME 11.1 fL (7.9-10.8); MONOCYTES # (AUTO) 0.3 10^3/uL (0.0-1.0); MONOCYTES % (AUTO) 5.7 %; NEUTROPHILS # (AUTO) 2.2 10^3/uL (1.5-6.6); PLT - PLATELET COUNT 142 10^3/uL (130-450); RED BLOOD COUNT 2.65 10^6/uL (4.20-5.40); RED CELL DISTRIBUTION WIDTH 17.3 % (12.0-15.0); WHITE BLOOD COUNT 4.6 x10^3/uL (4.8-10.8)
[2020-12-15] MEDS: NICOTINE 14 MG PATCH TOP SCH (08:49)
[2020-12-15] MEDS: cloNIDine 0.1 MG TABLET PO SCH (08:49)
[2020-12-15] MEDS: FAMOTIDINE 20 MG TABLET PO SCH (08:49)
[2020-12-15] MEDS: MAGNESIUM OXIDE 400 MG TABLET PO SCH (08:49)
[2020-12-15] MEDS: THIAMINE 100 MG TABLET PO SCH (08:49)
[2020-12-15] MEDS: polyethylene glycoL 3350 17 GM PACKET PO SCH (08:50)
[2020-12-15] MEDS: SODIUM CHLORIDE FLUSH 0.9% 10 ML SYRINGE IVP SCH (08:52)
[2020-12-15] MEDS ORDERED: DOCUSATE SODIUM 250 MG CAPSULE PO SCH (09:00)
[2020-12-15 10:34] VITALS: BP 107/74
== END 2020-12-15 11:20 | disposition home or self-care (01) | DRG 439 ==
LOC: ED 20:42 → ICU 12-12 00:43 → MS3 12-13 19:16
PROVIDERS: ADMIT Internal Medicine; ATTEND Internal Medicine
DX: K85.20 Alcohol induced acute pancreatitis without necrosis or infection (principal); E87.2 Acidosis; F10.139 Alcohol abuse with withdrawal, unspecified; Y90.6 Blood alcohol level of 120-199 mg/100 ml; F15.11 Other stimulant abuse, in remission; R74.01 Elevation of levels of liver transaminase levels; I10 Essential (primary) hypertension; G89.29 Other chronic pain; M54.9 Dorsalgia, unspecified; E86.0 Dehydration; R00.0 Tachycardia, unspecified; E87.6 Hypokalemia; F17.210 Nicotine dependence, cigarettes, uncomplicated; Z20.822 Contact with and (suspected) exposure to COVID-19; Z79.899 Other long term (current) drug therapy
CPT/HCPCS: 0202U; 36415; 74177; 80048; 80053; 80306; 80320; 81001; 81025; 82803; 82977; 83690; 83735; 84100; 85025; 85610; 86850; 86900; 86901; 87150; 96374; 96375; 99284; 99285; A9270; J1170; J2060; J3411; Q9967; 81003; 87086

== ENCOUNTER 2021-01-11 15:19 | Outpatient (CLI) | payer MEDICAID | END 2021-01-11 15:20 | disposition critical access hospital (66) | LOC: EMS 15:19 | DX: R55 Syncope and collapse (principal); S09.93XA Unspecified injury of face, initial encounter; W19.XXXA Unspecified fall, initial encounter | CPT/HCPCS: A0425; A0429 ==

== ENCOUNTER 2021-01-11 15:23 | Emergency (ER) | payer MEDICAID ==
[2021-01-11] MEDS ORDERED: THIAMINE 100 MG TABLET PO STA (15:35)
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
[2021-01-11 16:11] LABS: BASOPHILS # (AUTO) 0.1 10^3/uL (0.0-0.1); EOSINOPHILS # (AUTO) 0.1 10^3/uL (0.0-0.7); EOSINOPHILS % (AUTO) 0.8 %; HCT - HEMATOCRIT 41.5 % (37.0-47.0); HGB - HEMOGLOBIN 14.1 g/dL (12.0-16.0); LYMPHOCYTES # (AUTO) 3.7 10^3/uL (1.5-3.5); LYMPHOCYTES % (AUTO) 35.7 %; MEAN CORPUSCULAR HEMOGLOBIN 31.7 pg (27.0-31.0); MEAN CORPUSCULAR VOLUME 93.3 fL (81.0-99.0); MEAN PLATELET VOLUME 8.9 fL (7.9-10.8); MONOCYTES # (AUTO) 0.4 10^3/uL (0.0-1.0); NEUTROPHILS % (AUTO) 58.3 %; PLT - PLATELET COUNT 362 10^3/uL (130-450); RED BLOOD COUNT 4.45 10^6/uL (4.20-5.40); RED CELL DISTRIBUTION WIDTH 16.7 % (12.0-15.0); WHITE BLOOD COUNT 10.3 x10^3/uL (4.8-10.8)
[2021-01-11 16:24] LABS: ALBUMIN 4.5 g/dL (3.2-5.5); ALBUMIN/GLOBULIN RATIO 1.3 (1.0-2.2); BILIRUBIN,TOTAL 0.6 mg/dL (0.2-1.0); CALCIUM 9.3 mg/dL (8.5-10.3); CREATININE 0.5 mg/dL (0.4-1.0); POTASSIUM 3.3 mmol/L (3.5-5.0); TOTAL PROTEIN 7.9 g/dL (6.7-8.2)
[2021-01-11 16:32] LABS: MUDS CUTOFF CONCENTRATIONS CUTOFF CONC BELOW:
[2021-01-11 16:34] LABS: HCG UR QUAL NEGATIVE
--- NOTE | 2021-01-11 16:40 | CT Report ---
PROCEDURE: HEAD WO INDICATIONS: syncope, hx subarachnoid cysts TECHNIQUE: Noncontrast 4.5 mm thick angled axial sections acquired from the foramen magnum to the vertex. For r adiation dose reduction, the following was used: automated exposure control, adjustment of mA and/or kV according to patient size. COMPARISON: Correlation is made with the accompanying maxillofacial CT, 01/11/2021. Correlation is mad e with the prior brain MRI, 11/25/2015 FINDINGS: Image quality: Excellent. CSF spaces: Basal cisterns are patent. There is a stable arachnoid cyst again seen along the posteri or aspect of the posterior fossa, without significant change compared to 2016. Ventricles are normal in size and shape. Brain: No midline shift. No intracranial masses or hemorrhage. Sumner-white matter interface is norm al. Skull and face: Calvarium and visualized facial bones are intact, without suspicious lesions. Sinuses: Visualized sinuses and mastoids are clear. IMPRESSION: No acute abnormality is seen. No imaging explanation is found for syncope. Stable posterior fossa arachnoid cyst, unchanged from 2016. Reviewed by: Jaden Chavez MD on 01/11/2021 3:38 PM TERESO Approved by: Jaden Chavez MD on 01/11/2021 3:38 PM TERESO Station ID: [id number]
--- NOTE | 2021-01-11 16:40 | CT Report ---
PROCEDURE: MAXILLOFACIAL WO INDICATIONS: syncope TECHNIQUE: Noncontrast 1.5 mm thick axial images acquired from the mandible through the frontal sinuses, with co mandi and sagittal reformatting. For radiation dose reduction, the following was used: automated ex posure control, adjustment of mA and/or kV according to patient size. COMPARISON: Correlation is made with the accompanying head CT, 01/11/2021. FINDINGS: Image quality: Excellent. Bones and teeth: Orbital ward are intact. Sinus ward show no fracture or deformity. Nasal bones and septum are intact. Visualized portions of the mandible demonstrate no fractures or subluxation. Zygomatic arches are intact. Pterygoid plates are intact. Visualized portions of the skull base an d auditory canals are intact. Poor dentition is seen, particularly considering the patient's age. Sinuses: Paranasal sinuses are aerated, without fluid levels, mucosal thickening, or mucoceles. Mil d leftward nasal septal deviation is incidentally noted. Mastoid air cells are aerated. Soft tissues: No edema, masses, or fluid collections. No enlarged lymph nodes. No soft tissue lace rations or debris. Vascular: Visualized vascular structures appear normal in the absence of contrast. Bony vascular fo ramina and canals are intact. IMPRESSION: No displaced fracture is seen. Reviewed by: Jaden Chavez MD on 01/11/2021 3:39 PM TERESO Approved by: Jaden Chavez MD on 01/11/2021 3:39 PM TERESO Station ID: [id number]
[2021-01-11 16:48] LABS: AMPHETAMINE SCREEN,URINE NEGATIVE (NEGATIVE); BARBITURATE SCREEN,UR NEGATIVE (NEGATIVE); BENZODIAZEPINES SCREEN, URINE NEGATIVE (NEGATIVE); COCAINE SCREEN URINE NEGATIVE (NEGATIVE); METHADONE SCREEN, URINE NEGATIVE (NEGATIVE); METHAMPHETAMINES SCREEN, URINE NEGATIVE (NEGATIVE); OPIATE SCREEN, URINE NEGATIVE (NEGATIVE); OXYCODONE SCREEN, URINE NEGATIVE (NEGATIVE); PROPOXYPHENE SCREEN, URINE NEGATIVE (NEGATIVE); THC CANNABINOID SCREEN, URINE POSITIVE (NEGATIVE); TRICYCLIC ANTIDEPRESSANT,URINE NEGATIVE (NEGATIVE)
[2021-01-11] MEDS ORDERED: TETANUS/DIPHTHERIA/PERTUSSIS 0.5 ML SYRINGE IM ONE (16:51)
[2021-01-11] MEDS ORDERED: BACITRACIN ZINC OINT 1 PACKET TOP STA (16:51)
[2021-01-11] MEDS ORDERED: KETOROLAC 30 MG/ML VIAL IVP STA (17:24)
[2021-01-11] MEDS ORDERED: oxyCODONE 5 MG TABLET PO STA (17:24)
[2021-01-11 17:30] LABS: CALCIUM, IONIZED 1.11 mmol/L (1.15-1.33); VBG PH 7.377 (7.31-7.41)
[2021-01-11 18:25] VITALS: BP 124/79
--- NOTE | 2021-01-11 19:41 | XRAY Report ---
PROCEDURE: Chest 1 View X-Ray INDICATIONS: Syncope, prolonged qt TECHNIQUE: One view of the chest was acquired. COMPARISON: 11/17/2019 FINDINGS: Surgical changes and devices: None. Lungs and pleura: No pleural effusions or pneumothorax. Lungs are clear. Mediastinum: Mediastinal contours appear normal. Heart size is normal. Bones and chest wall: No suspicious bony lesions. Overlying soft tissues appear unremarkable. IMPRESSION: No acute cardiopulmonary process demonstrated radiographically. Reviewed by: Mil Rivas MD on 01/11/2021 7:40 PM PDT Approved by: Mil Rivas MD on 01/11/2021 7:40 PM PDT Station ID: [id number]
== END 2021-01-11 18:40 | disposition left against medical advice (07) ==
LOC: EDUNIT# → ED 15:23
DX: R55 Syncope and collapse (principal); R94.31 Abnormal electrocardiogram [ECG] [EKG]; I10 Essential (primary) hypertension; F10.10 Alcohol abuse, uncomplicated; R93.0 Abnormal findings on diagnostic imaging of skull and head, not elsewhere classified; Z53.29 Procedure and treatment not carried out because of patient's decision for other reasons; F17.200 Nicotine dependence, unspecified, uncomplicated; Z91.81 History of falling
CPT/HCPCS: 36415; 70450; 70486; 71045; 80053; 80306; 81025; 82330; 83690; 83735; 85025; 90471; 90715; 93005; 96374; 99284; A9270; 82310

== ENCOUNTER 2021-02-22 21:24 | Emergency (ER) | payer MEDICAID ==
[2021-02-22] MEDS ORDERED: SODIUM CHLORIDE 0.9% 1,000 ML IV STA ×2 (21:47→23:00)
[2021-02-22] MEDS ORDERED: ONDANSETRON 4 MG/2 ML VIAL IVP STA (21:47)
[2021-02-22] MEDS ORDERED: PHENobarbital 65 MG/ML VIAL IV STA (21:48)
[2021-02-22 21:55] LABS: BASOPHILS # (AUTO) 0.1 10^3/uL (0.0-0.1); BASOPHILS % (AUTO) 0.9 %; EOSINOPHILS # (AUTO) 0.3 10^3/uL (0.0-0.7); EOSINOPHILS % (AUTO) 3.5 %; HCT - HEMATOCRIT 41.3 % (37.0-47.0); HGB - HEMOGLOBIN 14.5 g/dL (12.0-16.0); LYMPHOCYTES # (AUTO) 1.2 10^3/uL (1.5-3.5); LYMPHOCYTES % (AUTO) 12.2 %; MEAN CORPUSCULAR HEMOGLOBIN 34.7 pg (27.0-31.0); MEAN CORPUSCULAR HGB CONC 35.1 g/dL (32.0-36.0); MEAN CORPUSCULAR VOLUME 98.8 fL (81.0-99.0); MEAN PLATELET VOLUME 10.4 fL (7.9-10.8); MONOCYTES # (AUTO) 0.6 10^3/uL (0.0-1.0); MONOCYTES % (AUTO) 5.8 %; NEUTROPHILS # (AUTO) 7.6 10^3/uL (1.5-6.6); NEUTROPHILS % (AUTO) 77.2 %; PLT - PLATELET COUNT 198 10^3/uL (130-450); RED BLOOD COUNT 4.18 10^6/uL (4.20-5.40); RED CELL DISTRIBUTION WIDTH 18.4 % (12.0-15.0); WHITE BLOOD COUNT 9.8 x10^3/uL (4.8-10.8)
[2021-02-22 22:13] LABS: ALBUMIN 5.1 g/dL (3.2-5.5); ALBUMIN/GLOBULIN RATIO 1.5 (1.0-2.2); BILIRUBIN,TOTAL 3.7 mg/dL (0.2-1.0); CALCIUM 10.1 mg/dL (8.5-10.3); CREATININE 0.7 mg/dL (0.4-1.0); ETOH - ETHANOL 14.1 mg/dL; POTASSIUM 3.8 mmol/L (3.5-5.0); TOTAL PROTEIN 8.4 g/dL (6.7-8.2)
[2021-02-22] MEDS ORDERED: KETOROLAC 30 MG/ML VIAL IVP STA (22:59)
[2021-02-22] MEDS ORDERED: HYDROmorphone 0.5 MG/0.5 ML SYRINGE IVP STA (23:00)
--- NOTE | 2021-02-22 23:02 | ED Physician Documentation ---
History of Present Illness - Stated complaint Stated Complaint: SOA,BACK PX,DETOX - Chief complaint Chief Complaint: Cardiac - History obtained from History obtained from: Patient - Additonal information Additional information: Patient comes emergency department chief complaint of nausea and vomiting and shakiness for the last few days. She states that she has not been able to keep alcohol down and that her back, which gives her chronic trouble, has been hurting worse ever since an injury a few weeks ago. No fevers or chills. No shortness of breath or cough. No blood in her vomit. No diarrhea. Patient states that she feels as though she is going through some alcohol withdrawal. She also states she feels very dehydrated. No other complaints at this time. Review of Systems Ten Systems: 10 systems reviewed and negative Constitutional: reports: Reviewed and negative Eyes: reports: Reviewed and negative Ears: reports: Reviewed and negative Nose: reports: Reviewed and negative Throat: reports: Reviewed and negative Cardiac: reports: Reviewed and negative Respiratory: reports: Reviewed and negative GI: reports: Nausea, Vomiting : reports: Reviewed and negative Skin: reports: Reviewed and negative Musculoskeletal: reports: Back pain Neurologic: reports: Reviewed and negative Psychiatric: reports: Reviewed and negative Endocrine: reports: Reviewed and negative Immunocompromised: reports: Reviewed and negative PD PAST MEDICAL HISTORY - Past Medical History Past Medical History: Yes Cardiovascular: Hypertension Respiratory: None Neuro: Migraines Endocrine/Autoimmune: None GI: Pancreatitis 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, 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), Other : None HEENT: Other Psych: Depression, Anxiety Musculoskeletal: Chronic back pain, Other Derm: None - Past Surgical History Past Surgical History: Yes /DEPOSITION OPERATOR: Other - Present Medications Home Medications: Ambulatory Orders Medication Instructions Recorded Confirmed Pnv No.95/Ferrous Fum/Folic AC 1 each PO DAILY #15 tablet 01/23/20 12/13/20 [ Tablet] Albuterol Sulfate [Albuterol 2 puffs IH Q4H PRN 05/06/20 12/13/20 Sulfate Hfa] Fluticasone [Flonase] 2 sprays BEN DAILY 05/06/20 12/13/20 Thiamine HCl [Vitamin B-1] 100 mg PO DAILY #30 tablet 05/10/20 12/13/20 lisinopriL [Lisinopril] 10 mg PO DAILY 12/13/20 12/13/20 oxyCODONE [Roxicodone] 5 mg PO Q4-6H #12 tablet 12/15/20 Ondansetron Odt [Zofran] 4 mg TL Q6H PRN #10 tablet 02/23/21 - Allergies Allergies/Adverse Reactions: Allergies Allergy/AdvReac Type Severity Reaction Status Date / Time No Known Drug Allergies Allergy Verified 01/11/21 15:27 - Social History Does the pt smoke?: Yes Smoking Status: Current every day smoker Does the pt drink ETOH?: Yes Does the pt have substance abuse?: No - Immunizations Immunizations are current?: Yes Immunizations: TDAP >10years/unknown - POLST Patient has POLST: No POLST Status: Full Code PD ED PE NORMAL - Vitals Vital signs reviewed: Yes - General General: Alert and oriented X 3, No acute distress, Other (Patient appears to be in chronically poor health but does not appear acutely in distress) - HEENT HEENT: Atraumatic, PERRL, EOMI, Other (Moderately dry mucous membranes) - Neck Neck: Supple, no meningeal sign - Cardiac Cardiac: No murmur, Strong equal pulses, Other (Tachycardic rate regular rhythm no murmur) - Respiratory Respiratory: No respiratory distress, Clear bilaterally - Abdomen Abdomen: Soft, Non distended, Other (Mild tenderness epigastric region) - Back Back: Other (Mild tenderness L1-L2 with increased spacing of spinous processes) - Derm Derm: Normal color, Warm and dry, No rash - Extremities Extremities: No deformity, No edema - 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, 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, No motor deficit, No sensory deficit, Normal speech, Other (Mild fine tremor.) - Psych Psych: Normal mood, Normal affect Results - Vitals Vitals: Vital Signs - 24 hr 02/22/21 02/22/21 02/22/21 21:40 21:48 22:18 Temperature 36.2 C L Heart Rate 137 H 126 H 89 Respiratory 16 18 18 Rate Blood Pressure 124/102 H 129/106 H 138/90 H O2 Saturation 99 98 99 02/22/21 02/22/21 02/23/21 23:00 23:30 00:00 Temperature Heart Rate 95 95 98 Respiratory 17 18 18 Rate Blood Pressure 137/96 H 138/91 H 145/88 H O2 Saturation 99 100 99 Oxygen O2 Source Room air - Labs Labs: Laboratory Tests 02/22/21 02/22/21 21:45 21:45 WBC 9.8 RBC 4.18 L Hgb 14.5 Hct 41.3 MCV 98.8 MCH 34.7 H MCHC 35.1 RDW 18.4 H Plt Count 198 MPV 10.4 Neut # (Auto) 7.6 H Lymph # (Auto) 1.2 L [place] # (Auto) 0.6 Eos # (Auto) 0.3 Baso # (Auto) 0.1 Absolute Nucleated RBC 0.00 Nucleated RBC % 0.0 Sodium 138 Potassium 3.8 Chloride 97 L Carbon Dioxide 11 L* Anion Gap 30.0 H BUN 15 Creatinine 0.7 Estimated GFR (MDRD) 91 Glucose 133 H Calcium 10.1 Total Bilirubin 3.7 H AST 234 H ALT 121 H Alkaline Phosphatase 124 H Total Protein 8.4 H Albumin 5.1 Globulin 3.3 Albumin/Globulin Ratio 1.5 Lipase 66 H Ethyl Alcohol 14.1 PD MEDICAL DECISION MAKING - ED course Complexity details: reviewed old records, reviewed results, re-evaluated patient, considered differential, d/w patient ED course: Patient was treated symptomatically with IV fluids, Zofran, phenobarbital, Toradol, and 1/2 mg of Dilaudid. She was worked up with labs and x-ray of the lumbar spine, all of which were unremarkable. I gave the patient prescription for Zofran. We have discussed the usual indications for return. Departure - Departure Disposition: 01 Home, Self Care Clinical Impression: Alcohol withdrawal Qualifiers: Complication of substance-induced condition: uncomplicated Qualified Code(s): F10.230 - Alcohol dependence with withdrawal, uncomplicated Back pain Qualifiers: Back pain location: low back pain Chronicity: acute Back pain laterality: midline Sciatica presence: without sciatica Qualified Code(s): M54.5 - Low back pain Condition: Stable Instructions: ED Withdrawal Alcohol, ED Neck Back Pain General Prescriptions: Ondansetron Odt [Zofran] 4 mg TL Q6H PRN #10 tablet PRN Reason: Nausea / Vomiting Comments: Your labs show mild ongoing elevations of your liver enzymes, which is not new. Your pancreatic pancreatic enzymes are slightly elevated, but not in the range of acute pancreatitis. You have been treated for your tremors, nausea, and dehydration tonight. Please take the nausea medication, as needed and try to get clear liquids as much as possible. You may start with small amounts of water or sports drinks at a time, every 15 to 20 minutes while awake. If you are able to hold this down for an hour or more, you may increase the amount of fluid. Your x-rays do not show any concerning findings at this time. Please follow-up with your primary care physician if you are not feeling better after the next few days. Discharge Date/Time: 02/23/21 00:28
[2021-02-23 00:08] VITALS: BP 145/88
--- NOTE | 2021-02-23 10:00 | XRAY Report ---
PROCEDURE: Lumbar Spine 2 View INDICATIONS: back pain after injury TECHNIQUE: 2 views of the lumbar spine were acquired. COMPARISON: None. FINDINGS: Bones: 5 [id number] vertebrae are present. There is normal bony alignment. No vertebral body compression fractures. No suspicious bony lesions. Soft tissues: Overlying bowel gas pattern is normal. No suspicious soft tissue calcifications. IMPRESSION: No visualized acute fracture or dislocation. However, occult injury cannot be excluded. Recommend short interval imaging follow-up in 7-10 days as clinically indicated for additional evalua tion. Reviewed by: Poly Benjamin MD on 02/23/2021 9:59 AM PDT Approved by: Poly Benjamin MD on 02/23/2021 9:59 AM PDT Station ID: [id number]
== END 2021-02-23 00:28 | disposition home or self-care (01) ==
LOC: ED 21:24
DX: F10.230 Alcohol dependence with withdrawal, uncomplicated (principal); E86.0 Dehydration; M54.5 Low back pain; G89.29 Other chronic pain; I10 Essential (primary) hypertension; F17.200 Nicotine dependence, unspecified, uncomplicated
CPT/HCPCS: 36415; 72100; 80053; 80320; 83690; 85025; 93005; 96361; 96374; 96375; 99284; J1170

== ENCOUNTER 2021-03-15 15:12 | Emergency (ER) | payer MEDICAID ==
[2021-03-15 15:23] VITALS: BP 123/84
[2021-03-15] MEDS ORDERED: BUFFERED LIDOCAINE 10 ML SYRINGE SUBQ STA (15:30)
[2021-03-15] MEDS ORDERED: HYDROmorphone 1 MG/ML CARPUJECT IVP STA (15:30)
[2021-03-15] MEDS ORDERED: KETAMINE 500 MG/10 ML VIAL IVP STA (15:31)
--- NOTE | 2021-03-15 15:32 | ED Physician Documentation ---
History of Present Illness - Stated complaint Stated Complaint: DRAINING LUMP UNDER BREAST - Chief complaint Chief Complaint: General - History obtained from History obtained from: Patient - Additonal information Additional information: Woman with history of alcoholism and long QT syndrome presents with a painful lump under her left breast. She has noticed the lump for years, but over the last week or so it has become significantly more painful. She denies fevers or chills. 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), Other : None HEENT: Other Psych: Depression, Anxiety Musculoskeletal: Chronic back pain, Other Derm: None - Past Surgical History Past Surgical History: Yes /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 SEAM 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: Other - Present Medications Home Medications: Ambulatory Orders Medication Instructions Recorded Confirmed Pnv No.95/Ferrous Fum/Folic AC 1 each PO DAILY #15 tablet 01/23/20 12/13/20 [ Tablet] Albuterol Sulfate [Albuterol 2 puffs IH Q4H PRN 05/06/20 12/13/20 Sulfate Hfa] Fluticasone [Flonase] 2 sprays BEN DAILY 05/06/20 12/13/20 Thiamine HCl [Vitamin B-1] 100 mg PO DAILY #30 tablet 05/10/20 12/13/20 lisinopriL [Lisinopril] 10 mg PO DAILY 12/13/20 12/13/20 oxyCODONE [Roxicodone] 5 mg PO Q4-6H #12 tablet 12/15/20 Ondansetron Odt [Zofran] 4 mg TL Q6H PRN #10 tablet 02/23/21 Amox/Clav 875/125 [Augmentin] 1 each PO Q12H #20 tablet 03/15/21 HYDROcod/ACETAM 5/325 [[place] 5/325] 1 - 2 tab PO Q6H PRN #15 tablet 03/15/21 - Allergies Allergies/Adverse Reactions: Allergies Allergy/AdvReac Type Severity Reaction Status Date / Time No Known Drug Allergies Allergy Verified 03/15/21 15:23 - Social History Does the pt smoke?: Yes Smoking Status: Current every day smoker Does the pt drink ETOH?: Yes Does the pt have substance abuse?: No - Immunizations Immunizations are current?: Yes Immunizations: TDAP >10years/unknown - POLST Patient has POLST: No POLST Status: Full Code PD ED PE NORMAL - Vitals Vital signs reviewed: Yes - General General: Alert and oriented X 3, No acute distress - HEENT HEENT: PERRL, EOMI - Neck Neck: Supple, no meningeal sign, No bony TTP - Cardiac Cardiac: RRR, No murmur - Respiratory Respiratory: No respiratory distress, Clear bilaterally - Abdomen Abdomen: Non tender - Back Back: No CVA TTP, No spinal TTP - Derm Derm: Other (There is an abscess on the inferior part of the left breast, given her description it most likely represents a infected sebaceous cyst. Breast exam and procedures done with RN present and chaperoning.) - 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, Normal speech Results - Vitals Vitals: Vital Signs - 24 hr 03/15/21 03/15/21 15:16 15:45 Temperature 37.9 C Heart Rate 92 75 Respiratory 16 12 Rate Blood Pressure 123/84 H O2 Saturation 99 Oxygen O2 Source Room air Procedures - Abscess I&D (location) L breast Preparation: Alcohol, Lidocaine 1% Incision: Incised with scalpel, Purulent drainage, Loculations broken, Packed, Culture obtained Other: Pt tolerated well, Dressing applied, Antibiotic prescribed - Procedural sedation Sedation prep: Informed consent, Time out completed, Last meal (last night), PE performed (Mallampati 1), ASA 2 - mild disease (smoking/htn) Sedation medications: ketamine (100mg IVP x 1) Patient status during sedation: Responds to tactile, Recovered uneventfully Sedation recovery: Recovered uneventfully, Other (She drove here but says she will have her son pick her up.) Time in sedation (Minutes): 20 Departure - Departure Disposition: 01 Home, Self Care Clinical Impression: Breast abscess Condition: Good Record reviewed to determine appropriate education?: Yes Instructions: ED Abscess IandD Follow-Up: Alex Ríos MD [Provider Admit Priv/Credential] - Prescriptions: Amox/Clav 875/125 [Augmentin] 1 each PO Q12H #20 tablet HYDROcod/ACETAM 5/325 [[place] 5/325] 1 - 2 tab PO Q6H PRN #15 tablet PRN Reason: Pain Comments: Do not drive for the next 24 hours. Return, follow-up with your doctor, or go to urgent care in 2 days for recheck and packing removal. Eventually you should follow-up with the breast surgeon, her name is listed on this form. We are performing a wound culture, the results should be done in 48-72 hours. If antibiotic change is necessary we will call you. Return if worse in the meantime, especially if you develop increased pain, fevers, cannot keep down the medication. Otherwise follow-up with your physician in approximately 2-3 days. I am prescribing a short course of narcotic pain medication for you. These are potentially dangerous and addictive medications that should be used carefully. These medications may constipate you. Take an axuq-slo-hyhphui stool softener (docusate) twice daily with plenty of water while taking these medications. If you go 24 hours without a bowel movement, take [id number] miralax, per package instructions. Do not drink or drive while taking these medications. If you received narcotic or sedating medications while in the emergency department, do not drive for 24 hours. Store this medication in a safe, secure place and out of reach of children. It is a violation of federal law to give or sell this medication to another person or to use in a manner other than prescribed. The ED will not refill narcotic prescriptions, including prescriptions lost or stolen. To dispose of unwanted medications: 1. [facility] at [address] in [place] has a medication drop box. They accept prescription medications (in pill form) Tuesday through Tuesday 9:00 a.m. to 5:00 p.m. 2. [facility] accepts prescription medications (in pill form only) for disposal year round. Call for more information. 3. Contact the [facility] for the next [facility] sponsored prescription drug collection event. , [phone], or [phone]; Note that many narcotic pain relievers also contain Tylenol/acetaminophen. Please ensure that your total dose of acetaminophen from all sources does not exceed 3 g (3000 mg) per day.
[2021-03-15] MEDS ORDERED: AMOX/CLAV 875 MG/125 MG TABLET PO STA (16:31)
[2021-03-15] MEDS ORDERED: KETOROLAC 15 MG/ML VIAL IVP STA (16:31)
[2021-03-15] MEDS ORDERED: HYDROcod/ACET 5/325 Prepack 4 PO STA (16:33)
== END 2021-03-15 17:12 | disposition home or self-care (01) ==
LOC: ED 15:12
DX: N61.1 Abscess of the breast and nipple (principal); F17.200 Nicotine dependence, unspecified, uncomplicated
CPT/HCPCS: 10061; 87070; 87205; 96374; 96375; 99152; 99284; 99285; A9270; J1170; 94770

== ENCOUNTER 2021-03-17 12:59 | Emergency (ER) | payer MEDICAID ==
--- NOTE | 2021-03-17 15:47 | ED Physician Documentation ---
History of Present Illness - Stated complaint Stated Complaint: WOUND REDRESSED - Chief complaint Chief Complaint: Wound - Additonal information Additional information: 42-year-old female presents emergency department to have the packing removed from her left breast abscess. Seen by my colleague 2 days ago for the abscess which was drained at the bedside. She was prescribed Augmentin but did not fill the prescription until today. She has had no fevers. She reports that it has continued to drain some bloody purulent fluid. 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, 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), Other : None HEENT: Other Psych: Depression, Anxiety Musculoskeletal: Chronic back pain, Other Derm: None - Past Surgical History Past Surgical History: Yes /COMMERCIAL DESIGNER: Other - Present Medications Home Medications: Ambulatory Orders Medication Instructions Recorded Confirmed Pnv No.95/Ferrous Fum/Folic AC 1 each PO DAILY #15 tablet 01/23/20 12/13/20 [ Tablet] Albuterol Sulfate [Albuterol 2 puffs IH Q4H PRN 05/06/20 12/13/20 Sulfate Hfa] Fluticasone [Flonase] 2 sprays BEN DAILY 05/06/20 12/13/20 Thiamine HCl [Vitamin B-1] 100 mg PO DAILY #30 tablet 05/10/20 12/13/20 lisinopriL [Lisinopril] 10 mg PO DAILY 12/13/20 12/13/20 oxyCODONE [Roxicodone] 5 mg PO Q4-6H #12 tablet 12/15/20 Ondansetron Odt [Zofran] 4 mg TL Q6H PRN #10 tablet 02/23/21 Amox/Clav 875/125 [Augmentin] 1 each PO Q12H #20 tablet 03/15/21 HYDROcod/ACETAM 5/325 [[place] 5/325] 1 - 2 tab PO Q6H PRN #15 tablet 03/15/21 - Allergies Allergies/Adverse Reactions: Allergies Allergy/AdvReac Type Severity Reaction Status Date / Time No Known Drug Allergies Allergy Verified 03/17/21 13:05 - Social History Does the pt smoke?: Yes Smoking Status: Current every day smoker Does the pt drink ETOH?: Yes Does the pt have substance abuse?: No - Immunizations Immunizations are current?: Yes Immunizations: TDAP >10years/unknown - POLST Patient has POLST: No POLST Status: Full Code PD ED PE EXPANDED - General General: Alert, In Pain - Derm Derm: Abscess (1 cm incision is noted under the left breast abscess with a very small amount of surrounding erythema. Packing was removed and does reveal a small to moderate amount of mucopurulent drainage on the dressing though no further drainage was delivered with palpation of the wound. ) Results - Vitals Vitals: Vital Signs - 24 hr 03/17/21 13:05 Temperature 36.5 C Heart Rate 85 Respiratory 16 Rate Blood Pressure 116/73 O2 Saturation 99 Oxygen O2 Source Room air PD MEDICAL DECISION MAKING - ED course Complexity details: reviewed results, re-evaluated patient, d/w patient ED course: 45-year-old female presents the emergency department to have the packing removed from under her left breast. Status post I&D 2 days ago by my colleague. The packing was removed and a small to moderate amount of mucopurulent drainage was on the dressing material but none was delivered from the wound itself. Wound appears to be healing appropriately. Though it is quite painful. I did encourage her to begin taking the antibiotics as prescribed as well as routine w ound care to include showers Neosporin. Advise close follow-up with breast surgeon as already referred. Emergent and worrisome return precautions were discussed. Departure - Departure Disposition: 01 Home, Self Care Clinical Impression: Breast abscess Condition: Stable Record reviewed to determine appropriate education?: Yes Comments: Jerica we did remove the packing from your breast abscess today. The wound looks good. It is normal to expect a little bit of bloody as well as milky or purulent drainage. Please begin taking the antibiotics that Dr. Martínez prescribed. It is okay to shower normally and allow water to rinse through your wound. With the antibiotics and routine wound care I would expect your pain to be getting markedly better over the next 3 to 4 days. If your symptoms are worsening, you develop fevers have increased redness or worsening pain please risk return to the ER for a second look. Also continue to follow-up with the surgeon that you were referred to.
[2021-03-17 15:49] VITALS: BP 114/72
== END 2021-03-17 15:48 | disposition home or self-care (01) ==
LOC: ED 12:59
DX: Z48.01 Encounter for change or removal of surgical wound dressing (principal); N61.1 Abscess of the breast and nipple; I10 Essential (primary) hypertension; F17.200 Nicotine dependence, unspecified, uncomplicated

== ENCOUNTER 2021-07-01 08:18 | Outpatient (CLI) | payer MEDICAID ==
[2021-07-01 08:56] LABS: ALBUMIN 4.3 g/dL (3.2-5.5); ALBUMIN/GLOBULIN RATIO 1.4 (1.0-2.2); BILIRUBIN,TOTAL 0.6 mg/dL (0.2-1.0); CALCIUM 9.4 mg/dL (8.5-10.3); CREATININE 0.5 mg/dL (0.4-1.0); POTASSIUM 3.9 mmol/L (3.5-5.0); TOTAL PROTEIN 7.3 g/dL (6.7-8.2)
== END 2021-07-01 08:19 | disposition home or self-care (01) ==
LOC: LAB 08:18
PROVIDERS: ATTEND Internal Medicine
DX: I45.81 Long QT syndrome (principal)
CPT/HCPCS: 36415; 80053; 83735

== ENCOUNTER 2021-10-31 02:55 | Outpatient (CLI) | payer MEDICAID ==
[2021-10-31 03:23] LABS: BASOPHILS # (AUTO) 0.1 10^3/uL (0.0-0.1); EOSINOPHILS # (AUTO) 0.2 10^3/uL (0.0-0.7); EOSINOPHILS % (AUTO) 1.9 %; HCT - HEMATOCRIT 36.5 % (37.0-47.0); HGB - HEMOGLOBIN 11.9 g/dL (12.0-16.0); LYMPHOCYTES # (AUTO) 3.6 10^3/uL (1.5-3.5); MEAN CORPUSCULAR HEMOGLOBIN 31.1 pg (27.0-31.0); MEAN CORPUSCULAR HGB CONC 32.6 g/dL (32.0-36.0); MEAN CORPUSCULAR VOLUME 95.3 fL (81.0-99.0); MEAN PLATELET VOLUME 9.3 fL (7.9-10.8); MONOCYTES # (AUTO) 0.5 10^3/uL (0.0-1.0); MONOCYTES % (AUTO) 5.3 %; NEUTROPHILS % (AUTO) 53.7 %; PLT - PLATELET COUNT 397 10^3/uL (130-450); RED BLOOD COUNT 3.83 10^6/uL (4.20-5.40); RED CELL DISTRIBUTION WIDTH 16.2 % (12.0-15.0); WHITE BLOOD COUNT 9.4 x10^3/uL (4.8-10.8)
[2021-10-31 03:42] LABS: ALBUMIN 3.8 g/dL (3.2-5.5); ALBUMIN/GLOBULIN RATIO 1.3 (1.0-2.2); ALKALINE PHOSPHATASE 87 IU/L (42-121); ALT ALANINE AMINOTRANSFERASE 21 IU/L (10-60); AST ASPARTATE AMINOTRANSFERASE 28 IU/L (10-42); BILIRUBIN,TOTAL 0.6 mg/dL (0.2-1.0); BUN - BLOOD UREA NITROGEN 14 mg/dL (6-20); CALCIUM 9.1 mg/dL (8.5-10.3); CARBON DIOXIDE - CO2 24 mmol/L (21-32); CHLORIDE 105 mmol/L (101-111); CHOLESTEROL 206 mg/dL; CREATININE 0.6 mg/dL (0.4-1.0); GFR - MDRD 109 (>89); GLUCOSE 112 mg/dL (70-100); HDL CHOLESTEROL 51 mg/dL; LDL CHOLESTEROL,CALCULATED 129 mg/dL; LDL/HDL RATIO 2.5 (<4.4); POTASSIUM 3.7 mmol/L (3.5-5.0); SODIUM 139 mmol/L (135-145); TOTAL PROTEIN 6.8 g/dL (6.7-8.2); TRIGLYCERIDES 128 mg/dL; VLDL CHOLESTEROL 26 mg/dL
[2021-10-31 03:53] LABS: THYROID STIMULATING HORMONE 2.27 uIU/mL (0.34-5.60)
[2021-10-31 08:53] LABS: ESTIMATED AVERAGE GLUCOSE 114 mg/dL (70-100); HEMOGLOBIN A1c% 5.6 % (4.27-6.07)
== END 2021-10-31 02:56 | disposition home or self-care (01) ==
LOC: LAB 02:55
PROVIDERS: ATTEND Internal Medicine Cardiovascular Disease
DX: R55 Syncope and collapse (principal); I10 Essential (primary) hypertension; Z13.220 Encounter for screening for lipoid disorders; Z13.1 Encounter for screening for diabetes mellitus
CPT/HCPCS: 36415; 80050; 80061; 83036; 83721; 83735

== ENCOUNTER 2021-11-28 15:08 | Inpatient (IN) | payer MEDICAID ==
[2021-11-28] MEDS ORDERED: HYDROmorphone 1 MG/ML CARPUJECT IVP STA (15:14)
[2021-11-28] MEDS ORDERED: SODIUM CHLORIDE 0.9% 1,000 ML IV STA (15:14)
[2021-11-28] MEDS ORDERED: ONDANSETRON 4 MG/2 ML VIAL IVP STA ×2 (15:14→19:23)
--- NOTE | 2021-11-28 15:15 | ED Physician Documentation ---
PD HPI ABD PAIN - Stated complaint Stated Complaint: ABD PX - History obtained from History obtained from: Patient, EMS - Additional information Additional information: 46-year-old woman with history of alcoholism and alcoholic pancreatitis has been sick since last night with right-sided abdominal pain and vomiting. It is associated with decreased bowel movements. She describes the vomit is brown but not black. She admits to drinking alcohol, "but less than I used to." Review of Systems Ten Systems: 10 systems reviewed and negative Constitutional: reports: Reviewed and negative Throat: reports: Reviewed and negative Cardiac: reports: Reviewed and negative PD PAST MEDICAL HISTORY - Past Medical History Cardiovascular: Hypertension Respiratory: None Neuro: Migraines Endocrine/Autoimmune: None GI: Pancreatitis COPYWRITING INTERN: Ovarian cysts, 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), Other : None HEENT: Other Psych: Depression, Anxiety Musculoskeletal: Chronic back pain, Other Derm: None - Past Surgical History Past Surgical History: Yes /COPYWRITING INTERN: Other - Present Medications Home Medications: Ambulatory Orders Medication Instructions Recorded Confirmed Pnv No.95/Ferrous Fum/Folic AC 1 each PO DAILY #15 tablet 01/23/20 12/13/20 [ Tablet] Albuterol Sulfate [Albuterol 2 puffs IH Q4H PRN 05/06/20 12/13/20 Sulfate Hfa] Fluticasone [Flonase] 2 sprays BEN DAILY 05/06/20 12/13/20 Thiamine HCl [Vitamin B-1] 100 mg PO DAILY #30 tablet 05/10/20 12/13/20 lisinopriL [Lisinopril] 10 mg PO DAILY 12/13/20 12/13/20 oxyCODONE [Roxicodone] 5 mg PO Q4-6H #12 tablet 12/15/20 Ondansetron Odt [Zofran] 4 mg TL Q6H PRN #10 tablet 02/23/21 Amox/Clav 875/125 [Augmentin] 1 each PO Q12H #20 tablet 03/15/21 HYDROcod/ACETAM 5/325 [[place] 5/325] 1 - 2 tab PO Q6H PRN #15 tablet 03/15/21 - Allergies Allergies/Adverse Reactions: Allergies Allergy/AdvReac Type Severity Reaction Status Date / Time No Known Drug Allergies Allergy Verified 11/28/21 15:15 - Social History Does the pt smoke?: Yes Smoking Status: Current every day smoker Does the pt drink ETOH?: Yes Does the pt have substance abuse?: No - Immunizations Immunizations are current?: Yes Immunizations: TDAP >10years/unknown - POLST Patient has POLST: No POLST Status: Full Code PD ED PE NORMAL - Vitals Vital signs reviewed: Yes (Slight resting tachypnea and tachycardia) - General General: No acute distress, Other (Slow slurred speech; Retching) - HEENT HEENT: Other (Very dry mucous membranes) - Neck Neck: Supple, no meningeal sign, No bony TTP - Cardiac Cardiac: Other (Tachycardic but regular without murmur) - Respiratory Respiratory: Clear bilaterally, Other (Mild tachypnea with clear lungs) - Abdomen Abdomen: Other (Quite diminished bowel tones with mild diffuse tenderness without focal findings or surgical signs.) - Back Back: No CVA TTP, No spinal TTP - Derm Derm: Normal color, Warm and dry - Extremities Extremities: No edema, No calf tenderness / cord - 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, Normal speech Results - Vitals Vitals: Vital Signs - 24 hr 11/28/21 11/28/21 11/28/21 15:16 15:18 17:17 Temperature 36.5 C 36.5 C 36.5 C Heart Rate 120 H 120 H 116 H Respiratory 16 16 Rate Blood Pressure 140/100 H 141/100 H 158/96 H O2 Saturation 100 100 99 11/28/21 11/28/21 11/28/21 17:18 18:00 19:00 Temperature 36.5 C Heart Rate 116 H 117 H 120 H Respiratory 18 24 Rate Blood Pressure 158/96 H 155/92 H 158/90 H O2 Saturation 99 98 98 11/28/21 11/28/21 19:30 20:00 Temperature 36.5 C Heart Rate 129 H 112 H Respiratory 20 18 Rate Blood Pressure 142/95 H 140/72 H O2 Saturation 97 98 Oxygen O2 Source Room air - Labs Labs: Laboratory Tests 11/28/21 11/28/21 11/28/21 06:05 15:25 15:25 WBC 26.3 H RBC 4.44 Hgb 13.6 Hct 42.4 MCV 95.5 MCH 30.6 MCHC 32.1 RDW 17.7 H Plt Count 432 MPV 9.4 Neut # (Auto) Not Reportable Lymph # (Auto) Not Reportable [place] # (Auto) Not Reportable Eos # (Auto) Not Reportable Baso # (Auto) Not Reportable Absolute Nucleated RBC Not Reportable Total Counted 100 Band Neuts % (Manual) 2 Abnorm Lymph % (Manual) 0 Nucleated RBC % Not Reportable Neutrophils # (Manual) 24.7 H Lymphocytes # (Manual) 1.3 L Monocytes # (Manual) 0.3 Eosinophils # (Manual) 0.0 Basophils # (Manual) 0.0 Differential Comment MANUAL DIFFERENTIAL Platelet Estimate NORMAL (130-450,000) Platelet Morphology RARE GIANT PLATELETS RBC Morph Micro Appear 1+ ANISOCYTOSIS PT 12.7 H INR 1.1 Bld Gas Analysis Time 1609 Sample Site RIGHT BRACHIAL ABG pH 7.11 L* ABG pCO2 19 L* ABG pO2 158 H* ABG HCO3 5.7 L ABG Total CO2 6.3 L* ABG O2 Saturation 99 H ABG Base Excess -21.9 L Christo Test NOT APPLICABLE VBG pH VBG pCO2 VBG pO2 VBG HCO3 VBG Total CO2 VBG O2 Saturation VBG Base Excess Room Air YES Sodium Potassium Chloride Carbon Dioxide Anion Gap BUN Creatinine Estimated GFR (MDRD) Glucose Lactic Acid Calcium Total Bilirubin AST ALT Alkaline Phosphatase Total Protein Albumin Globulin Albumin/Globulin Ratio Lipase Urine Color Urine Clarity Urine pH Ur Specific [place] Urine Protein Urine Glucose (UA) Urine Ketones Urine Occult Blood Urine Nitrite Urine Bilirubin Urine Urobilinogen Ur Leukocyte Esterase Urine RBC Urine WBC Ur Squamous Epith Cells Urine Bacteria Ur Microscopic Review Urine Culture Comments Urine HCG, Qual Urine Opiates Screen Ur Oxycodone Screen Urine Methadone Screen Ur Propoxyphene Screen Ur Barbiturates Screen Ur Tricyclics Screen Ur Phencyclidine Scrn Ur Amphetamine Screen U Methamphetamines Scrn U Benzodiazepines Scrn Urine Cocaine Screen U Cannabinoids Screen Ethyl Alcohol Serum Ketones SARS-CoV-2 (PCR) 11/28/21 11/28/21 11/28/21 15:25 15:25 15:59 WBC RBC Hgb Hct MCV MCH MCHC RDW Plt Count MPV Neut # (Auto) Lymph # (Auto) [place] # (Auto) Eos # (Auto) Baso # (Auto) Absolute Nucleated RBC Total Counted Band Neuts % (Manual) Abnorm Lymph % (Manual) Nucleated RBC % Neutrophils # (Manual) Lymphocytes # (Manual) Monocytes # (Manual) Eosinophils # (Manual) Basophils # (Manual) Differential Comment Platelet Estimate Platelet Morphology RBC Morph Micro Appear PT INR Bld Gas Analysis Time Sample Site ABG pH ABG pCO2 ABG pO2 ABG HCO3 ABG Total CO2 ABG O2 Saturation ABG Base Excess Christo Test VBG pH 7.074 L VBG pCO2 25.3 L VBG pO2 59.4 H VBG HCO3 7.2 L VBG Total CO2 8.0 L VBG O2 Saturation 80.5 H VBG Base Excess -21.4 L Room Air Sodium 139 Potassium 3.6 Chloride 94 L Carbon Dioxide 8 L* Anion Gap 37.0 H BUN 20 Creatinine 0.9 Estimated GFR (MDRD) 68 L Glucose 94 Lactic Acid 9.2 H* Calcium 9.2 Total Bilirubin 1.5 H AST 148 H ALT 65 H Alkaline Phosphatase 126 H Total Protein 8.4 H Albumin 5.0 Globulin 3.4 Albumin/Globulin Ratio 1.5 Lipase 23 Urine Color Urine Clarity Urine pH Ur Specific [place] Urine Protein Urine Glucose (UA) Urine Ketones Urine Occult Blood Urine Nitrite Urine Bilirubin Urine Urobilinogen Ur Leukocyte Esterase Urine RBC Urine WBC Ur Squamous Epith Cells Urine Bacteria Ur Microscopic Review Urine Culture Comments Urine HCG, Qual Urine Opiates Screen Ur Oxycodone Screen Urine Methadone Screen Ur Propoxyphene Screen Ur Barbiturates Screen Ur Tricyclics Screen Ur Phencyclidine Scrn Ur Amphetamine Screen U Methamphetamines Scrn U Benzodiazepines Scrn Urine Cocaine Screen U Cannabinoids Screen Ethyl Alcohol 95.6 Serum Ketones SMALL H SARS-CoV-2 (PCR) 11/28/21 11/28/21 11/28/21 16:30 16:45 19:06 WBC RBC Hgb Hct MCV MCH MCHC RDW Plt Count MPV Neut # (Auto) Lymph # (Auto) [place] # (Auto) Eos # (Auto) Baso # (Auto) Absolute Nucleated RBC Total Counted Band Neuts % (Manual) Abnorm Lymph % (Manual) Nucleated RBC % Neutrophils # (Manual) Lymphocytes # (Manual) Monocytes # (Manual) Eosinophils # (Manual) Basophils # (Manual) Differential Comment Platelet Estimate Platelet Morphology RBC Morph Micro Appear PT INR Bld Gas Analysis Time Sample Site ABG pH ABG pCO2 ABG pO2 ABG HCO3 ABG Total CO2 ABG O2 Saturation ABG Base Excess Christo Test VBG pH VBG pCO2 VBG pO2 VBG HCO3 VBG Total CO2 VBG O2 Saturation VBG Base Excess Room Air Sodium Potassium Chloride Carbon Dioxide Anion Gap BUN Creatinine Estimated GFR (MDRD) Glucose Lactic Acid 9.5 H* Calcium Total Bilirubin AST ALT Alkaline Phosphatase Total Protein Albumin Globulin Albumin/Globulin Ratio Lipase Urine Color YELLOW Urine Clarity HAZY Urine pH 6.0 Ur Specific [place] 1.020 Urine Protein 30 H Urine Glucose (UA) NEGATIVE Urine Ketones 40 H Urine Occult Blood LARGE H Urine Nitrite NEGATIVE Urine Bilirubin NEGATIVE Urine Urobilinogen 0.2 (NORMAL) Ur Leukocyte Esterase NEGATIVE Urine RBC 6-10 H Urine WBC 4-5 Ur Squamous Epith Cells MOD Squamous H Urine Bacteria Few Ur Microscopic Review INDICATED Urine Culture Comments NOT INDICATED Urine HCG, Qual NEGATIVE Urine Opiates Screen POSITIVE H Ur Oxycodone Screen NEGATIVE Urine Methadone Screen NEGATIVE Ur Propoxyphene Screen NEGATIVE Ur Barbiturates Screen NEGATIVE Ur Tricyclics Screen NEGATIVE Ur Phencyclidine Scrn NEGATIVE Ur Amphetamine Screen NEGATIVE U Methamphetamines Scrn NEGATIVE U Benzodiazepines Scrn NEGATIVE Urine Cocaine Screen NEGATIVE U Cannabinoids Screen POSITIVE H Ethyl Alcohol Serum Ketones SARS-CoV-2 (PCR) NOT DETECTED Procedures - Central Line Central Line Preparation: Consent Obtained, Time out completed, Ultrasound used, Sterile prep and drape Central line location: Right IJ Central line type: Triple lumen Central line aftercare: Chlorhexidine disc placed, Secured, Placement confirmed, No pneumothorax, No complications, Bundle checklist complete, Pt tolerated well PD MEDICAL DECISION MAKING - ED course ED course: 46-year-old woman presents by ambulance for abdominal pain of a days duration and vomiting. She is found to be surprisingly ill with a white count of 26,000, significant metabolic acidosis with respiratory compensation and profound lactic acidemia. She was given large volume crystalloid resuscitation with 3 L of crystalloid, 1 of saline and 2 of lactated Ringer's. She had a peripheral IV prehospital and a central line was placed after noting her lactate. She may be in septic shock, although sepsis is not clear given lack of source but given the lactic acidosis and white count will treat for same and was administered cefepime, Flagyl, and vancomycin after blood cultures. Spoke with Dr. Vera for admission at 5:30 PM. Her second lactate was actually slightly uptrending and a bicarb drip was started. - Critical Care Time(min): 44 Time Includes: Direct patient care, Review records, Reassess patient, Document care, Coordinate care, Medical consult Data interpretation: Labs, Pulse ox Procedures included in critical care time: Peripheral IV Procedures excluded from critical care time: Central IV Departure - Departure Disposition: 66 [facility] DC/Xfer Clinical Impression: Transaminitis, Lactic acidosis, Dehydration Alcohol intoxication Qualifiers: Complication of substance-induced condition: uncomplicated Qualified Code(s): F10.920 - Alcohol use, unspecified with intoxication, uncomplicated Abdominal pain Qualifiers: Abdominal location: generalized Qualified Code(s): R10.84 - Generalized abdomi nal pain Condition: Critical Discharge Date/Time: 11/28/21 21:08
[2021-11-28] MEDS ORDERED: IOVERSOL 320 100 ML VIAL IVP ONE ×2 (15:28→16:29)
[2021-11-28 15:32] LABS: BASOPHILS % (AUTO) 0.6 %; EOSINOPHILS % (AUTO) 0.2 %; HCT - HEMATOCRIT 42.4 % (37.0-47.0); HGB - HEMOGLOBIN 13.6 g/dL (12.0-16.0); LYMPHOCYTES % (AUTO) 6.3 %; MEAN CORPUSCULAR HEMOGLOBIN 30.6 pg (27.0-31.0); MEAN CORPUSCULAR HGB CONC 32.1 g/dL (32.0-36.0); MEAN CORPUSCULAR VOLUME 95.5 fL (81.0-99.0); MEAN PLATELET VOLUME 9.4 fL (7.9-10.8); MONOCYTES % (AUTO) 5.4 %; PLT - PLATELET COUNT 432 10^3/uL (130-450); RED BLOOD COUNT 4.44 10^6/uL (4.20-5.40); RED CELL DISTRIBUTION WIDTH 17.7 % (12.0-15.0); WHITE BLOOD COUNT 26.3 x10^3/uL (4.8-10.8)
[2021-11-28 15:34] LABS: ABNORMAL LYMPHS % (MANUAL) 0 %
[2021-11-28 15:36] LABS: VBG PCO2 25.3 mmHg (41-51); VBG PH 7.074 (7.31-7.41); VBG PO2 59.4 mmHg (25-47)
[2021-11-28 15:37] LABS: VBG BASE EXCESS -21.4 mmol/L (-2 - +2); VBG HCO3 7.2 mmol/L (23-28); VBG OXYGEN SATURATION 80.5 % (60-80)
[2021-11-28 15:38] LABS: KETONES, SERUM (ACETEST) SMALL (NEGATIVE)
[2021-11-28 15:42] LABS: INR 1.1 (0.8-1.2); PT - PROTHROMBIN TIME 12.7 secs (9.9-12.6)
[2021-11-28 15:45] LABS: ALBUMIN/GLOBULIN RATIO 1.5 (1.0-2.2); ALKALINE PHOSPHATASE 126 IU/L (42-121); ALT ALANINE AMINOTRANSFERASE 65 IU/L (10-60); AST ASPARTATE AMINOTRANSFERASE 148 IU/L (10-42); BILIRUBIN,TOTAL 1.5 mg/dL (0.2-1.0); BUN - BLOOD UREA NITROGEN 20 mg/dL (6-20); CALCIUM 9.2 mg/dL (8.5-10.3); CHLORIDE 94 mmol/L (101-111); CREATININE 0.9 mg/dL (0.4-1.0); ETOH - ETHANOL 95.6 mg/dL; GFR - MDRD 68 (>89); GLUCOSE 94 mg/dL (70-100); LIPASE 23 U/L (22-51); POTASSIUM 3.6 mmol/L (3.5-5.0); SODIUM 139 mmol/L (135-145); TOTAL PROTEIN 8.4 g/dL (6.7-8.2)
[2021-11-28 15:47] LABS: CARBON DIOXIDE - CO2 8 mmol/L (21-32)
[2021-11-28] MEDS ORDERED: LACTATED RINGERS 1,000 ML IV STA ×2 (15:47→16:27)
[2021-11-28] MEDS ORDERED: THIAMINE INJ 100 MG in SODIUM CHLORIDE 0.9% 50 ML IV STA (15:50)
[2021-11-28] MEDS ORDERED: METOCLOPRAMIDE 10 MG/2 ML VIAL IVP STA (16:06)
[2021-11-28 16:12] LABS: ABG HCO3 5.7 mmol/L (22.0-26.0)
[2021-11-28 16:13] LABS: ABG BASE EXCESS -21.9 mmol/L (-2.0-3.0); ABG OXYGEN SATURATION 99 % (94-98)
[2021-11-28 16:15] LABS: BAND NEUTROPHILS % (MANUAL) 2 %; LYMPHOCYTES # (MANUAL) 1.3 10^3/uL (1.5-3.5); LYMPHOCYTES % (MANUAL) 5 %; MONOCYTES # (MANUAL) 0.3 10^3/uL (0.0-1.0); NEUTROPHILS # (MANUAL) 24.7 10^3/uL (1.5-6.6)
[2021-11-28 16:16] LABS: DIFFERENTIAL COMMENT MANUAL DIFFERENTIAL; PLATELET ESTIMATE, MANUAL NORMAL (130-450,000) (NORMAL); PLATELET MORPHOLOGY RARE GIANT PLATELETS (NORMAL); RBC MORPHOLOGY (MULTIPLE) 1+ ANISOCYTOSIS (NORMAL)
[2021-11-28 16:16] LABS: ABG PH 7.11 (7.35-7.45)
[2021-11-28 16:17] LABS: ABG PCO2 19 mmHg (34-45); ABG PO2 158 mmHg (80-100); ABG TCO2 6.3 MMOL/L (21.0-29.0)
[2021-11-28] MEDS ORDERED: metroNIDAZOLE 500 MG/100 ML 500 MG/100 ML BAG IV STA (16:17)
[2021-11-28] MEDS ORDERED: CEFEPIME 2 GM in SODIUM CHLORIDE 0.9% MINIBAG 100 ML IV STA (16:17)
[2021-11-28] MEDS ORDERED: VANCOMYCIN INJ 1.25 GM in SODIUM CHLORIDE 0.9% 250 ML IV STA (16:17)
[2021-11-28 16:18] LABS: LACTIC ACID, VENOUS 9.2 mmol/L (0.5-2.2)
--- NOTE | 2021-11-28 16:57 | CT Report ---
PROCEDURE: Abdomen/Pelvis W INDICATIONS: IV only R abd pain CONTRAST: IV CONTRAST: Optiray 320 ml: 100 PO CONTRAST: *NO PO CONTRAST TECHNIQUE: After the administration of IV contrast, 5 mm thick sections acquired from the diaphragms to the symp hysis. 5 mm thick coronal and sagittal reformats were acquired. For radiation dose reduction, the f ollowing was used: automated exposure control, adjustment of mA and/or kV according to patient size. COMPARISON: 2020 FINDINGS: Image quality: Excellent. ABDOMEN: Lung bases: Lung bases are clear. Heart size is normal. There is a small to moderate hiatal hernia . Solid organs: The liver demonstrates profound fatty infiltration. No focally suspicious liver lesion s are seen. The liver demonstrates mild enlargement. The spleen demonstrates normal size and demonstrates no suspicious lesions. The gallbladder is prominent in size. Gallbladder wall does not appear thickened. No pericholecystic fluid is seen. Biliary system is non dilated. Pancreas enhances normally. No adrenal nodules. Kidneys demonstrate normal size and enhancement, without hydronephrosis. A 3 mm nonobstructing left- sided kidney stone is again seen. Peritoneum and bowel: There is diffuse nodular thickening seen throughout the colon. No abscess colle ction is seen. No dilated loops of small bowel are seen. No free air or significant free fluid can be seen. A normal appendix is incidentally noted. Nodes and vessels: No retroperitoneal or mesenteric adenopathy by size criteria. Aorta and inferior vena cava are normal in size. Miscellaneous: No ventral hernias. PELVIS: Genitourinary: Bladder wall thickness is normal. The uterus demonstrates an unremarkable appearance for age. No adnexal masses are seen. Miscellaneous: No inguinal hernias or adenopathy. Bones: No suspicious bony lesions. No vertebral body compression fractures. Mild dextroconvex scol iotic curvature is seen. IMPRESSION: Diffuse nodular thickening can be seen throughout the colon. Please correlate with potent ial infectious and inflammatory causes of colitis, including C. difficile colitis. The colon appears similar to the 12/12/2020 examination. No findings of abscess or perforation can be seen. No dilated loops of small bowel are seen. A normal appendix is seen. The gallbladder is prominent in size, and demonstrates no additional CT abnormality. If there is stro ng clinical concern for cholecystitis, please consider dedicated right upper quadrant ultrasound. Incidental note is made of: Small to moderate hiatal hernia Mildly enlarged, prominently fatty infiltrated liver. 3 mm nonobstructing left-sided kidney stone Reviewed by: Jaden Chavez MD on 11/28/2021 3:56 PM TERESO Approved by: Jaden Chavez MD on 11/28/2021 3:56 PM TERESO Station ID: [id number]
[2021-11-28 17:03] LABS: MUDS CUTOFF CONCENTRATIONS CUTOFF CONC BELOW:
[2021-11-28 17:07] LABS: BILIRUBIN,URINE NEGATIVE (NEGATIVE); GLUCOSE, URINE (UA) NEGATIVE (NEGATIVE); KETONES,URINE (UA) 40 mg/dL (NEGATIVE); LEUKOCYTE ESTERASE, URINE NEGATIVE (NEGATIVE); NITRITE,URINE NEGATIVE (NEGATIVE); OCCULT BLOOD,URINE LARGE (NEGATIVE); PROTEIN,URINE 30 mg/dL (NEGATIVE); UROBILINOGEN,URINE 0.2 (NORMAL) E.U./dL (NORMAL)
[2021-11-28 17:18] LABS: CLARITY,URINE HAZY (CLEAR); HCG UR QUAL NEGATIVE
--- NOTE | 2021-11-28 17:28 | XRAY Report ---
PROCEDURE: Chest for Line Placement INDICATIONS: LINE PLACEMENT TECHNIQUE: One view of the chest was acquired. COMPARISON: 01/11/2021 FINDINGS: Surgical changes and devices: There is a right-sided central line, with the tip overlying the inferio r aspect of the superior vena cava, near the cavoatrial junction. Lungs and pleura: No pleural effusions or pneumothorax. Lungs are clear. Mediastinum: Mediastinal contours appear normal. Heart size is normal. Bones and chest wall: No suspicious bony lesions. Overlying soft tissues appear unremarkable. IMPRESSION: The tip of the right-sided central line overlies the inferior aspect of the superior vena cava. Reviewed by: Jaden Chavez MD on 11/28/2021 4:27 PM TERESO Approved by: Jaden Chavez MD on 11/28/2021 4:27 PM TERESO Station ID: [id number]
[2021-11-28 17:30] LABS: BACTERIA,URINE Few /HPF (None Seen); SQUAMOUS EPITHELIAL CELL,UR MOD Squamous (<= Few)
[2021-11-28 17:31] LABS: AMPHETAMINE SCREEN,URINE NEGATIVE (NEGATIVE); BARBITURATE SCREEN,UR NEGATIVE (NEGATIVE); BENZODIAZEPINES SCREEN, URINE NEGATIVE (NEGATIVE); COCAINE SCREEN URINE NEGATIVE (NEGATIVE); METHADONE SCREEN, URINE NEGATIVE (NEGATIVE); METHAMPHETAMINES SCREEN, URINE NEGATIVE (NEGATIVE); OPIATE SCREEN, URINE POSITIVE (NEGATIVE); OXYCODONE SCREEN, URINE NEGATIVE (NEGATIVE); PROPOXYPHENE SCREEN, URINE NEGATIVE (NEGATIVE); THC CANNABINOID SCREEN, URINE POSITIVE (NEGATIVE); TRICYCLIC ANTIDEPRESSANT,URINE NEGATIVE (NEGATIVE)
[2021-11-28] MEDS ORDERED: LORazepam 2 MG/ML VIAL IVP STA (17:47)
[2021-11-28] MEDS ORDERED: KETOROLAC 15 MG/ML VIAL IVP STA (19:23)
[2021-11-28 19:33] LABS: LACTIC ACID, VENOUS 9.5 mmol/L (0.5-2.2)
[2021-11-28] MEDS ORDERED: SODIUM BICARBONATE 150 MEQ in DEXTROSE 5% 1,000 ML IV SCH (20:00)
[2021-11-28] MEDS: SODIUM BICARBONATE 150 MEQ in DEXTROSE 5% 1,000 ML IV SCH (20:02)
[2021-11-28] MEDS ORDERED: ONDANSETRON 4 MG/2 ML VIAL IVP PRN (20:19)
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
[2021-11-28 20:42] LABS: BASOPHILS % (AUTO) 0.3 %; EOSINOPHILS % (AUTO) 0.2 %; HCT - HEMATOCRIT 34.1 % (37.0-47.0); LYMPHOCYTES % (AUTO) 5.5 %; MEAN CORPUSCULAR HEMOGLOBIN 30.8 pg (27.0-31.0); MEAN CORPUSCULAR HGB CONC 32.3 g/dL (32.0-36.0); MEAN CORPUSCULAR VOLUME 95.5 fL (81.0-99.0); MEAN PLATELET VOLUME 9.2 fL (7.9-10.8); MONOCYTES % (AUTO) 4.1 %; PLT - PLATELET COUNT 326 10^3/uL (130-450); RED BLOOD COUNT 3.57 10^6/uL (4.20-5.40); RED CELL DISTRIBUTION WIDTH 17.6 % (12.0-15.0); WHITE BLOOD COUNT 25.5 x10^3/uL (4.8-10.8)
[2021-11-28 20:54] LABS: ABNORMAL LYMPHS % (MANUAL) 0 %; BAND NEUTROPHILS % (MANUAL) 0 %
[2021-11-28 20:55] LABS: ALBUMIN 4.2 g/dL (3.2-5.5); ALBUMIN/GLOBULIN RATIO 1.4 (1.0-2.2); BILIRUBIN,TOTAL 1.7 mg/dL (0.2-1.0); CALCIUM 8.4 mg/dL (8.5-10.3); CREATININE 0.8 mg/dL (0.4-1.0); POTASSIUM 4.4 mmol/L (3.5-5.0); TOTAL PROTEIN 7.1 g/dL (6.7-8.2)
[2021-11-28] MEDS ORDERED: metroNIDAZOLE 500 MG/100 ML 500 MG/100 ML BAG IV SCH (21:00)
[2021-11-28 21:09] LABS: DIFFERENTIAL COMMENT MANUAL DIFFERENTIAL; LYMPHOCYTES # (MANUAL) 2.6 10^3/uL (1.5-3.5); LYMPHOCYTES % (MANUAL) 10 %; MONOCYTES # (MANUAL) 1.3 10^3/uL (0.0-1.0); NEUTROPHILS # (MANUAL) 21.7 10^3/uL (1.5-6.6); PLATELET ESTIMATE, MANUAL NORMAL (130-450,000) (NORMAL); PLATELET MORPHOLOGY NORMAL APPEARANCE (NORMAL); RBC MORPHOLOGY (MULTIPLE) 1+ ANISOCYTOSIS (NORMAL)
[2021-11-28] MEDS: oxyCODONE 5 MG TABLET PO PRN (21:59)
[2021-11-28] MEDS: chlordiazePOXIDE 25 MG CAPSULE PO SCH (21:59)
[2021-11-28] MEDS: ACETAMINOPHEN 325 MG TABLET PO PRN (22:00)
[2021-11-28 22:40] LABS: LACTIC ACID, VENOUS 4.7 mmol/L (0.5-2.2)
[2021-11-29] MEDS ORDERED: SODIUM CHLORIDE 0.9% 500 ML IV PRN (00:16)
[2021-11-29] MEDS: metroNIDAZOLE 500 MG/100 ML 500 MG/100 ML BAG IV SCH ×3 (00:33→16:44)
[2021-11-29] MEDS: DEXTROSE 5%-0.45% NACL 1,000 ML IV SCH ×3 (00:57→11:09)
[2021-11-29] MEDS: oxyCODONE 5 MG TABLET PO PRN ×6 (02:35→22:54)
[2021-11-29] MEDS: ACETAMINOPHEN 325 MG TABLET PO PRN ×4 (02:35→22:54)
[2021-11-29] MEDS: SODIUM CHLORIDE FLUSH 0.9% 10 ML SYRINGE IVP PRN ×3 (02:36→20:12)
[2021-11-29] MEDS: SODIUM CHLORIDE FLUSH 0.9% 10 ML SYRINGE IVP SCH ×3 (02:36→17:32)
[2021-11-29] MEDS: SODIUM BICARBONATE 150 MEQ in DEXTROSE 5% 1,000 ML IV SCH ×2 (04:03→07:48)
[2021-11-29] MEDS: chlordiazePOXIDE 25 MG CAPSULE PO SCH ×3 (04:49→20:12)
[2021-11-29] MEDS: CEFEPIME 2 GM in SODIUM CHLORIDE 0.9% MINIBAG 100 ML IV SCH ×2 (04:49→16:12)
[2021-11-29] MEDS ORDERED: VANCOMYCIN INJ 1 GM in SODIUM CHLORIDE 0.9% 250 ML IV SCH (05:00)
[2021-11-29 05:22] LABS: CALCIUM, IONIZED 1.09 mmol/L (1.15-1.33); VBG PH 7.409 (7.31-7.41)
[2021-11-29 05:24] LABS: BASOPHILS % (AUTO) 0.4 %; HCT - HEMATOCRIT 26.2 % (37.0-47.0); HGB - HEMOGLOBIN 8.7 g/dL (12.0-16.0); LYMPHOCYTES # (AUTO) 1.6 10^3/uL (1.5-3.5); LYMPHOCYTES % (AUTO) 15.8 %; MEAN CORPUSCULAR HEMOGLOBIN 30.5 pg (27.0-31.0); MEAN CORPUSCULAR HGB CONC 33.2 g/dL (32.0-36.0); MEAN CORPUSCULAR VOLUME 91.9 fL (81.0-99.0); MONOCYTES # (AUTO) 0.6 10^3/uL (0.0-1.0); MONOCYTES % (AUTO) 5.8 %; NEUTROPHILS # (AUTO) 7.6 10^3/uL (1.5-6.6); NEUTROPHILS % (AUTO) 77.6 %; PLT - PLATELET COUNT 260 10^3/uL (130-450); RED BLOOD COUNT 2.85 10^6/uL (4.20-5.40); RED CELL DISTRIBUTION WIDTH 17.2 % (12.0-15.0); WHITE BLOOD COUNT 9.8 x10^3/uL (4.8-10.8)
[2021-11-29 05:37] LABS: ALBUMIN 3.4 g/dL (3.2-5.5); ALBUMIN/GLOBULIN RATIO 1.6 (1.0-2.2); ALKALINE PHOSPHATASE 72 IU/L (42-121); ALT ALANINE AMINOTRANSFERASE 39 IU/L (10-60); AST ASPARTATE AMINOTRANSFERASE 69 IU/L (10-42); BILIRUBIN,TOTAL 1.5 mg/dL (0.2-1.0); BUN - BLOOD UREA NITROGEN 13 mg/dL (6-20); CARBON DIOXIDE - CO2 24 mmol/L (21-32); CHLORIDE 98 mmol/L (101-111); CREATININE 0.6 mg/dL (0.4-1.0); GFR - MDRD 109 (>89); GLUCOSE 394 mg/dL (70-100); MAGNESIUM 1.3 mg/dL (1.7-2.8); POTASSIUM 3.3 mmol/L (3.5-5.0); SODIUM 132 mmol/L (135-145); TOTAL PROTEIN 5.5 g/dL (6.7-8.2)
[2021-11-29 05:38] LABS: PHOSPHORUS < 1.0 mg/dL (2.5-4.6)
[2021-11-29] MEDS: PANTOPRAZOLE 40 MG VIAL IVP SCH (06:37)
[2021-11-29] MEDS: MAGNESIUM SULFATE 2 GRAM 2 GM/50 ML BAG IV SCH ×2 (06:37→07:54)
[2021-11-29] MEDS: CALCIUM CARBONATE CHEW 500 MG TABLET PO SCH ×2 (06:37→09:13)
[2021-11-29] MEDS: SODIUM CHLORIDE 0.9% 1,000 ML IV SCH ×2 (07:49→16:02)
[2021-11-29] MEDS: NICOTINE 14 MG PATCH TOP SCH (09:12)
[2021-11-29] MEDS: POTASSIUM PHOSPHATE 15 MMOL in SODIUM CHLORIDE 0.9% 250 ML IV SCH ×2 (09:12→13:53)
[2021-11-29] MEDS: THIAMINE 100 MG TABLET PO SCH (09:13)
[2021-11-29] MEDS: PRENATAL VITAMIN TABLET PO SCH (09:13)
[2021-11-29] MEDS: SENNA 8.6 MG TABLET PO SCH (10:52)
[2021-11-29] MEDS: DOCUSATE SODIUM 250 MG CAPSULE PO SCH (10:52)
[2021-11-29] MEDS: polyethylene glycoL 3350 17 GM PACKET PO SCH (10:52)
--- NOTE | 2021-11-29 11:35 | PHARMACY PROGRESS NOTE ---
- Best Possible Medication History Admit Date and Time: 11/28/212013 Processed by: Pharmacy Medication History completed: Yes Secondary Source(s): Physician records, Insurance records As the person ultimately responsible for medication therapy, providers are able to order a medication from an existing home medication list in [facility] via the "Reconcile Routine" prior to Confirmation of that medication by technical support technician. Such practice is discouraged except when the physician, in their clinical judgment, deems that a medical need exists for a medication without regard to previous use.
[2021-11-29] MEDS: VANCOMYCIN INJ 1 GM in SODIUM CHLORIDE 0.9% 250 ML IV SCH ×2 (12:40→20:15)
[2021-11-29] MEDS: LIDOCAINE PATCH 5% TOP PRN (13:42)
[2021-11-29 13:44] LABS: CALCIUM, IONIZED 1.11 mmol/L (1.15-1.33); VBG PH 7.433 (7.31-7.41)
[2021-11-29 16:40] LABS: PHOSPHORUS < 1.0 mg/dL (2.5-4.6)
[2021-11-29] MEDS ORDERED: POTASSIUM PHOSPHATE 15 MMOL in SODIUM CHLORIDE 0.9% 250 ML IV SCH ×2 (17:00→22:00)
--- NOTE | 2021-11-29 19:38 | PROVIDER PROGRESS NOTE ---
Assessment/Plan - Problem List (1) Sepsis Assessment/Plan: 11/29/21 WBC improved from 26.3 yesterday down to 9.8 today. Lactic acid is down to 2.2. Blood cultures are no growth to date. We will continue vancomycin, cefepime and Flagyl for 1 more day. Continue IV hydration with normal saline at 125 mL/h. 11/28/[address] of the abdomen/pelvis showed colitis. Blood cultures drawn. WBC was 26.3 with lactic acid of 9.2. Patient was started on vancomycin, cefepime and Flagyl. We will continue. She was given a liter of sodium bicarbonate. We will hold off on further administration for now. Continue IV hydration with normal saline at 125 mL/h. Lactic acid check q. 4 hours x 2. Patient was admitted to the ICU. (2) Colitis Assessment/Plan: This was shown on CT of abdomen/pelvis done in the ED. Patient is currently on cefepime, vancomycin and Flagyl. We will continue to monitor. (3) Dehydration Assessment/Plan: She was given 1 L bolus of fluids in the ED. We will continue IV hydration with normal saline at 125 mL/h. (4) Lactic acidosis Assessment/Plan: 11/29/21 Improved/resolved. Lactic acid today was 2.2. Continue IV hydration with normal saline at 125 mL/h. 11/28/21 Etiology undetermined. Suspect alcohol abuse and/or sepsis When 1 L sodium bicarbonate solution in the ED. She also received 1 L of normal saline. We will continue IV hydration with normal saline at 125 mL/h. We will trend lactic acid x2 more. (5) Alcohol abuse Assessment/Plan: [facility] protocol initiated. Librium 25 mg p.o. 3 times daily ordered. Multivitamin ordered - Current Meds Current Meds: Current Medications Generic Name Dose Route Start Last Admin Trade Name Freq PRN Reason Stop Dose Admin Acetaminophen 650 mg 11/28/21 20:19 11/29/21 19:23 Acetaminophen 325 Mg Tablet PO 650 mg Q4HR PRN Administration Pain 1 to 4 Chlordiazepoxide HCl 25 mg 11/28/21 21:00 11/29/21 12:40 Chlordiazepoxide 25 Mg Capsule PO 25 mg Q8H AL Administration Docusate Sodium 250 - 500 mg 11/29/21 11:00 11/29/21 10:52 Docusate Sodium 250 Mg Capsule PO 250 mg DAILY AL Administration Cefepime HCl 2 gm/ Sodium 100 mls @ 200 mls/hr 11/29/21 05:00 11/29/21 16:43 Chloride IV Infused Q12H AL Infusion Metronidazole 500 mg in 100 mls @ 100 mls/hr 11/29/21 01:00 11/29/21 17:33 Flagyl 500 Mg/100 Ml IV Infused Q8H AL Infusion Sodium Chloride 500 mls @ 20 mls/hr 11/29/21 00:16 11/29/21 18:03 Normal Saline 0.9% IV 20 mls/hr Q24H PRN Infusion TKO RATE Sodium Chloride 1,000 mls @ 125 mls/hr 11/29/21 08:00 11/29/21 18:00 Normal Saline 0.9% IV 125 mls/hr .Q8H AL Infusion Vancomycin HCl 1 gm/ Sodium 250 mls @ 167 mls/hr 11/29/21 13:00 11/29/21 14:30 Chloride IV Infused Q8H AL Infusion Potassium Phosphate 15 mmol/ 255 mls @ 63 mls/hr 11/29/21 17:00 11/29/21 18:00 Sodium Chloride IV 11/29/21 20:59 64 mls/hr Q4H AL Infusion Protocol Potassium Chloride 20 meq in 100 mls @ 100 mls/hr 11/29/21 21:00 11/29/21 18:04 Potassium Chloride IV 11/29/21 21:59 Infused ONCE ONE Infusion Lidocaine 1 patch 11/29/21 10:58 11/29/21 13:42 Lidocaine Patch 5% TOP 1 patch DAILY PRN Administration PAIN Nicotine 1 patch 11/29/21 09:00 11/29/21 09:12 Nicotine 14 Mg Patch TOP 1 patch DAILY AL Administration Ondansetron HCl 4 mg 11/28/21 20:19 11/29/21 09:32 Ondansetron 4 Mg/2 Ml Vial IVP 4 mg Q6HR PRN Administration Nausea / Vomiting Oxycodone HCl 5 mg 11/28/21 21:22 11/29/21 19:23 Oxycodone 5 Mg Tablet PO 5 mg Q4HR PRN Administration PAIN Pantoprazole Sodium 40 mg 11/29/21 07:00 11/29/21 06:37 Pantoprazole 40 Mg Vial IVP 40 mg QDAC AL Administration Polyethylene Glycol 17 gm 11/29/21 11:00 11/29/21 10:52 Polyethylene Glycol 3350 17 Gm Packet PO 17 gm DAILY AL Administration Multivit/Folic Acid/Iron 1 tab 11/29/21 09:00 11/29/21 09:13 Vitamin Tablet PO 1 tab DAILY AL Administration Senna 8.6 - 17.2 mg 11/29/21 11:00 11/29/21 10:52 Senna 8.6 Mg Tablet PO 8.6 mg DAILY AL Administration Sodium Chloride 10 ml 11/29/21 01:00 11/29/21 17:32 Sodium Chloride Flush 0.9% 10 Ml Syringe IVP Not Given 0100,0900,1700 AL Sodium Chloride 10 ml 11/28/21 20:14 11/29/21 06:38 Sodium Chloride Flush 0.9% 10 Ml Syringe IVP 10 ml PRN PRN Administration NEEDED PER PROVIDER ORDERS Sodium Chloride 20 ml 11/28/21 23:51 11/29/21 02:36 Sodium Chloride Flush 0.9% 10 Ml Syringe IVP 20 ml PRN PRN Administration After Blood Draw Thiamine HCl 100 mg 11/29/21 09:00 11/29/21 09:13 Thiamine 100 Mg Tablet PO 100 mg DAILY AL Administration - Lab Result Fish Bone Diagrams: 11/29/21 04:45 11/29/21 16:00 - Additional Planning My Orders: My Active Orders 11/28/21 20:14 Activity Orders [RC] Q2HR Daily Weight [RC] 0600 IO [RC] Q1HR Initiate Bowel Care Protocol [RC] QSHIFT Initiate ICU Electrolyte Prot. [RC] .protocol Initiate Line Care Protocol [RC] .protocol Initiate Personal Care Protoco [RC] .protocol Sodium Chloride Flush 0.9% [Normal Saline Flush 0.9%] 10 ml IVP PRN PRN Code Status [OTHERS] Routine Condition of Patient [OTHERS] Routine DVT Prophylaxis [OTHERS] Routine 11/28/21 20:19 Acetaminophen [Tylenol] 650 mg PO Q4HR PRN Ondansetron Inj [Zofran Inj] 4 mg IVP Q6HR PRN 11/28/21 20:21 Telemetry- [RC] Q4HR 11/28/21 20:22 Oxygen Therapy [RC] .PRN SCDs [RC] QSHIFT 11/28/21 20:30 CIWA - AR Score Card [RC] Q4HR LORazepam INJ [Ativan Inj (Vial)] 1 mg IVP Q30M PRN 11/28/21 21:00 chlordiazePOXIDE [Librium] 25 mg PO Q8H 11/28/21 21:22 oxyCODONE [Roxicodone] 5 mg PO Q4HR PRN 11/28/21 23:51 Sodium Chloride Flush 0.9% [Normal Saline Flush 0.9%] 20 ml IVP PRN PRN 11/29/21 00:16 Sodium Chloride 0.9% [Normal Saline 0.9%] 500 ml IV Q24H 11/29/21 01:00 Sodium Chloride Flush 0.9% [Normal Saline Flush 0.9%] 10 ml IVP 0100,0900,1700 metroNIDAZOLE 500 MG/100 ML [Flagyl 500 mg/100 ml] 500 mg in 100 ml IV Q8H 11/29/21 05:00 Cefepime 2 gm Sodium Chloride 0.9% Minibag [Normal Saline 0.9% Minibag] 100 ml IV Q12H 11/29/21 07:00 Pantoprazole [Protonix] 40 mg IVP QDAC 11/29/21 08:00 Sodium Chloride 0.9% [Normal Saline 0.9%] 1,000 ml IV 125 mls/hr 11/29/21 09:00 Nicotine 14 mg Patch [Nicoderm] 1 patch TOP DAILY Vitamin [Trinatal Rx 1] 1 tab PO DAILY Thiamine [Vitamin B-1] 100 mg PO DAILY 11/29/21 11:00 Docusate Sodium 250Mg Capsule [Colace 250Mg Capsule] 250 - 500 mg PO DAILY Senna [Senokot] 8.6 - 17.2 mg PO DAILY polyethylene glycoL 3350 [Miralax] 17 gm PO DAILY 11/29/21 13:00 Vancomycin Inj [Vancomycin] 1 gm Sodium Chloride 0.9% [Normal Saline 0.9%] 250 ml IV Q8H 11/29/21 17:00 Potassium Phosphate 15 mmol Sodium Chloride 0.9% [Normal Saline 0.9%] 250 ml IV Q4H 11/29/21 19:37 LACTIC ACID, VENOUS [CHEM] Stat 11/30/21 05:00 CALCIUM, IONIZED ([facility]) [BG] DAILYLAB CBC - COMP BLD CT W/AUTO DIFF [HEME] DAILYLAB COMPREHENSIVE METABOLIC PANEL [CHEM] DAILYLAB 12/01/21 05:00 CALCIUM, IONIZED ([facility]) [BG] DAILYLAB CBC - COMP BLD CT W/AUTO DIFF [HEME] DAILYLAB COMPREHENSIVE METABOLIC PANEL [CHEM] DAILYLAB 12/02/21 05:00 CBC - COMP BLD CT W/AUTO DIFF [HEME] DAILYLAB COMPREHENSIVE METABOLIC PANEL [CHEM] DAILYLAB 12/03/21 05:00 CBC - COMP BLD CT W/AUTO DIFF [HEME] DAILYLAB COMPREHENSIVE METABOLIC PANEL [CHEM] DAILYLAB Subjective - Subjective Patient Reports: Other (Resting comfortably in bed. Reported mild right-sided abdominal pain which is significantly improved from the previous day. Also reported chronic back pain. Has been having diarrhea today.) Objective Vital Signs: Vital Signs - 24 hr 11/28/21 11/28/21 11/28/21 20:00 21:00 22:00 Temperature 36.5 C Heart Rate 112 H Heart Rate [ 128 H 116 H Monitoring electrodes] Respiratory 18 26 H 22 Rate Blood Pressure 140/72 H Blood Pressure 142/87 H 140/88 H [Left Brachial artery] Blood Pressure [Right brachial artery] O2 Saturation 98 100 100 11/28/21 11/29/21 11/29/21 23:00 00:00 01:00 Temperature 37.4 C Heart Rate Heart Rate [ 121 H 110 H 119 H Monitoring electrodes] Respiratory 21 23 17 Rate Blood Pressure Blood Pressure 147/102 H 108/52 L 124/79 [Left Brachial artery] Blood Pressure [Right brachial artery] O2 Saturation 97 96 96 11/29/21 11/29/21 11/29/21 02:00 03:00 04:00 Temperature Heart Rate Heart Rate [ 115 H 107 H 103 H Monitoring electrodes] Respiratory 17 19 17 Rate Blood Pressure Blood Pressure 115/79 113/82 H 121/82 H [Left Brachial artery] Blood Pressure [Right brachial artery] O2 Saturation 98 94 98 11/29/21 11/29/21 11/29/21 05:00 06:00 07:00 Temperature 37.2 C Heart Rate Heart Rate [ 102 H 99 96 Monitoring electrodes] Respiratory 16 22 20 Rate Blood Pressure Blood Pressure 127/87 H [Left Brachial artery] Blood Pressure 110/75 114/72 [Right brachial artery] O2 Saturation 98 95 94 11/29/21 11/29/21 11/29/21 08:00 09:00 10:00 Temperature 36.8 C Heart Rate Heart Rate [ 100 94 91 Monitoring electrodes] Respiratory 16 20 18 Rate Blood Pressure Blood Pressure [Left Brachial artery] Blood Pressure 122/97 H 142/95 H 111/82 H [Right brachial artery] O2 Saturation 97 96 98 11/29/21 11/29/21 11/29/21 11:00 12:00 13:00 Temperature 36.8 C Heart Rate Heart Rate [ 100 98 90 Monitoring electrodes] Respiratory 20 19 14 Rate Blood Pressure Blood Pressure [Left Brachial artery] Blood Pressure 127/91 H 129/95 H 130/92 H [Right brachial artery] O2 Saturation 99 97 97 11/29/21 11/29/21 11/29/21 14:00 15:00 16:00 Temperature Heart Rate Heart Rate [ 81 85 89 Monitoring electrodes] Respiratory 17 20 20 Rate Blood Pressure Blood Pressure [Left Brachial artery] Blood Pressure 130/89 H 146/95 H 137/99 H [Right brachial artery] O2 Saturation 94 97 98 11/29/21 11/29/21 11/29/21 17:00 18:00 19:00 Temperature 37.1 C Heart Rate Heart Rate [ 96 90 89 Monitoring electrodes] Respiratory 13 15 19 Rate Blood Pressure Blood Pressure [Left Brachial artery] Blood Pressure 125/89 H 135/96 H 123/95 H [Right brachial artery] O2 Saturation 99 98 95 Oxygen O2 Source Room air I&O (Last 24 Hrs): Intake and Output Totals x24h 11/27/21 11/28/21 11/29/21 23:59 23:59 23:59 Intake Total 4094.333 8599.966 Output Total 350 4400 Balance 3744.333 4199.966 General: Alert, Oriented x3, Mild distress HEENT: PERRLA, EOMI Neck: Supple, No JVD Neuro: Alert, Oriented Times 3 Cardiovascular: Regular rate, Normal S1, Normal S2, No murmurs Respiratory: Chest non-tender, No respiratory distress, Breath sounds nml Abdomen: Normal bowel sounds, Soft, Other (Mild abdominal tenderness) Extremities: No clubbing, No cyanosis, No edema Skin: No rashes, No breakdown, No significant lesion - Results Results: Laboratory Results WBC 9.8 x10^3/uL (4.8-10.8) 11/29/21 04:45 RBC 2.85 10^6/uL (4.20-5.40) L 11/29/21 04:45 Hgb 8.7 g/dL (12.0-16.0) L 11/29/21 04:45 Hct 26.2 % (37.0-47.0) L 11/29/21 04:45 MCV 91.9 fL (81.0-99.0) 11/29/21 04:45 MCH 30.5 pg (27.0-31.0) 11/29/21 04:45 MCHC 33.2 g/dL (32.0-36.0) 11/29/21 04:45 RDW 17.2 % (12.0-15.0) H 11/29/21 04:45 Plt Count 260 10^3/uL (130-450) 11/29/21 04:45 MPV 10.0 fL (7.9-10.8) 11/29/21 04:45 Neut # (Auto) 7.6 10^3/uL (1.5-6.6) H 11/29/21 04:45 Lymph # (Auto) 1.6 10^3/uL (1.5-3.5) 11/29/21 04:45 Harding # (Auto) 0.6 10^3/uL (0.0-1.0) 11/29/21 04:45 Eos # (Auto) 0.0 10^3/uL (0.0-0.7) 11/29/21 04:45 Baso # (Auto) 0.0 10^3/uL (0.0-0.1) 11/29/21 04:45 Absolute Nucleated RBC 0.00 x10^3/uL 11/29/21 04:45 Total Counted 100 11/28/21 20:37 Band Neuts % (Manual) 0 % (0-10) 11/28/21 20:37 Abnorm Lymph % (Manual) 0 % 11/28/21 20:37 Nucleated RBC % 0.0 /100WBC 11/29/21 04:45 Neutrophils # (Manual) 21.7 10^3/uL (1.5-6.6) H 11/28/21 20:37 Lymphocytes # (Manual) 2.6 10^3/uL (1.5-3.5) 11/28/21 20:37 Monocytes # (Manual) 1.3 10^3/uL (0.0-1.0) H 11/28/21 20:37 Eosinophils # (Manual) 0.0 10^3/uL (0-0.7) 11/28/21 20:37 Basophils # (Manual) 0.0 10^3/uL (0-0.1) 11/28/21 20:37 Differential Comment MANUAL DIFFERENTIAL 11/28/21 20:37 Platelet Estimate NORMAL (130-450,000) (NORMAL) 11/28/21 20: Platelet Morphology NORMAL APPEARANCE (NORMAL) 11/28/21 20: RBC Morph Micro Appear 1+ ANISOCYTOSIS (NORMAL) 11/28/21 20:37 PT 12.7 secs (9.9-12.6) H 11/28/21 15:25 INR 1.1 (0.8-1.2) 11/28/21 15:25 Bld Gas Analysis Time 1609 11/28/21 06:05 Sample Site RIGHT BRACHIAL 11/28/21 06:05 ABG pH 7.11 (7.35-7.45) L* 11/28/21 06:05 ABG pCO2 19 mmHg (34-45) L* 11/28/21 06:05 ABG pO2 158 mmHg (80-100) H* 11/28/21 06:05 ABG HCO3 5.7 mmol/L (22.0-26.0) L 11/28/21 06:05 ABG Total CO2 6.3 MMOL/L (21.0-29.0) L* 11/28/21 06:05 ABG O2 Saturation 99 % (94-98) H 11/28/21 06:05 ABG Base Excess -21.9 mmol/L (-2.0-3.0) L 11/28/21 06:05 Christo Test NOT APPLICABLE 11/28/21 06:05 VBG pH 7.433 (7.31-7.41) H 11/29/21 13:34 VBG pCO2 25.3 mmHg (41-51) L 11/28/21 15:25 VBG pO2 59.4 mmHg (25-47) H 11/28/21 15:25 VBG HCO3 7.2 mmol/L (23-28) L 11/28/21 15:25 VBG Total CO2 8.0 mmol/L (24-29) L 11/28/21 15:25 VBG O2 Saturation 80.5 % (60-80) H 11/28/21 15:25 VBG Base Excess -21.4 mmol/L (-2 - +2) L 11/28/21 15:25 Ionized Calcium 1.11 mmol/L (1.15-1.33) L 11/29/21 13:34 Room Air YES 11/28/21 06:05 Sodium 132 mmol/L (135-145) L 11/29/21 04:45 Potassium 3.0 mmol/L (3.5-5.0) L 11/29/21 16:00 Chloride 98 mmol/L (101-111) L 11/29/21 04:45 Carbon Dioxide 24 mmol/L (21-32) 11/29/21 04:45 Anion Gap 10.0 (6-13) 11/29/21 04:45 BUN 13 mg/dL (6-20) 11/29/21 04:45 Creatinine 0.6 mg/dL (0.4-1.0) 11/29/21 04:45 Estimated GFR (MDRD) 109 (>89) 11/29/21 04:45 Glucose 394 mg/dL (70-100) H 11/29/21 04:45 Lactic Acid 3.6 mmol/L (0.5-2.2) H* 11/29/21 07:00 Calcium 8.0 mg/dL (8.5-10.3) L 11/29/21 04:45 Phosphorus < 1.0 mg/dL (2.5-4.6) L* 11/29/21 16:00 Magnesium 3.0 mg/dL (1.7-2.8) H 11/29/21 10:56 Total Bilirubin 1.5 mg/dL (0.2-1.0) H 11/29/21 04:45 AST 69 IU/L (10-42) H 11/29/21 04:45 ALT 39 IU/L (10-60) 11/29/21 04:45 Alkaline Phosphatase 72 IU/L (42-121) 11/29/21 04:45 Total Protein 5.5 g/dL (6.7-8.2) L 11/29/21 04:45 Albumin 3.4 g/dL (3.2-5.5) 11/29/21 04:45 Globulin 2.1 g/dL (2.1-4.2) 11/29/21 04:45 Albumin/Globulin Ratio 1.6 (1.0-2.2) 11/29/21 04:45 Lipase 23 U/L (22-51) 11/28/21 15:25 Urine Color YELLOW 11/28/21 16:45 Urine Clarity HAZY (CLEAR) 11/28/21 16:45 Urine pH 6.0 PH (5.0-7.5) 11/28/21 16:45 Ur Specific [place] 1.020 (1.002-1.030) 11/28/21 16:45 Urine Protein 30 mg/dL (NEGATIVE) H 11/28/21 16:45 Urine Glucose (UA) NEGATIVE mg/dL (NEGATIVE) 11/28/21 16:45 Urine Ketones 40 mg/dL (NEGATIVE) H 11/28/21 16:45 Urine Occult Blood LARGE (NEGATIVE) H 11/28/21 16:45 Urine Nitrite NEGATIVE (NEGATIVE) 11/28/21 16:45 Urine Bilirubin NEGATIVE (NEGATIVE) 11/28/21 16:45 Urine Urobilinogen 0.2 (NORMAL) E.U./dL (NORMAL) 11/28/21 16:45 Ur Leukocyte Esterase NEGATIVE (NEGATIVE) 11/28/21 16:45 Urine RBC 6-10 /HPF (0-5) H 11/28/21 16:45 Urine WBC 4-5 /HPF (0-5) 11/28/21 16:45 Ur Squamous Epith Cells MOD Squamous (<= Few) H 11/28/21 16:45 Urine Bacteria Few /HPF (None Seen) 11/28/21 16:45 Ur Microscopic Review INDICATED 11/28/21 16:45 Urine Culture Comments NOT INDICATED 11/28/21 16:45 Urine HCG, Qual NEGATIVE 11/28/21 16:45 Nasal Screen MRSA (PCR) NEGATIVE (NEGATIVE) 11/28/21 21:30 Urine Opiates Screen POSITIVE (NEGATIVE) H 11/28/21 16:45 Ur Oxycodone Screen NEGATIVE (NEGATIVE) 11/28/21 16:45 Urine Methadone Screen NEGATIVE (NEGATIVE) 11/28/21 16:45 Ur Propoxyphene Screen NEGATIVE (NEGATIVE) 11/28/21 16:45 Ur Barbiturates Screen NEGATIVE (NEGATIVE) 11/28/21 16:45 Ur Tricyclics Screen NEGATIVE (NEGATIVE) 11/28/21 16:45 Ur Phencyclidine Scrn NEGATIVE (NEGATIVE) 11/28/21 16:45 Ur Amphetamine Screen NEGATIVE (NEGATIVE) 11/28/21 16:45 U Methamphetamines Scrn NEGATIVE (NEGATIVE) 11/28/21 16:45 U Benzodiazepines Scrn NEGATIVE (NEGATIVE) 11/28/21 16:45 Urine Cocaine Screen NEGATIVE (NEGATIVE) 11/28/21 16:45 U Cannabinoids Screen POSITIVE (NEGATIVE) H 11/28/21 16:45 Ethyl Alcohol 95.6 mg/dL 11/28/21 15:25 Serum Ketones SMALL (NEGATIVE) H 11/28/21 15:25 SARS-CoV-2 (PCR) NOT DETECTED 11/28/21 16:30 Sepsis Event Note (H) - Evaluation Current Stage of Sepsis: Sepsis Possible source of Sepsis: positive: GI tract/intra-abdominal - Sepsis Criteria Sepsis Criteria: Recorded Heart Rate greater than 90 bpm, WBC count greater than 12,000 or less than 4000, Metabolic: lactate > 2 mmol/L ABX Reporting Has patient been on IV antibiotics over the past 48 hours?: Yes
[2021-11-29] MEDS ORDERED: POTASSIUM CHLOR 20 MEQ/100 ML 20 MEQ/100 ML BAG IV ONE (21:00)
[2021-11-30] MEDS: SODIUM CHLORIDE 0.9% 1,000 ML IV SCH (00:01)
[2021-11-30] MEDS: metroNIDAZOLE 500 MG/100 ML 500 MG/100 ML BAG IV SCH ×3 (00:50→17:23)
[2021-11-30] MEDS: SODIUM CHLORIDE FLUSH 0.9% 10 ML SYRINGE IVP SCH ×4 (00:50→22:57)
[2021-11-30] MEDS: LORazepam 2 MG/ML VIAL IVP PRN ×2 (00:51→08:23)
[2021-11-30] MEDS: oxyCODONE 5 MG TABLET PO PRN ×6 (02:50→22:55)
[2021-11-30] MEDS: ACETAMINOPHEN 325 MG TABLET PO PRN ×5 (02:50→20:23)
[2021-11-30] MEDS: chlordiazePOXIDE 25 MG CAPSULE PO SCH ×3 (04:13→20:22)
[2021-11-30] MEDS: CEFEPIME 2 GM in SODIUM CHLORIDE 0.9% MINIBAG 100 ML IV SCH ×2 (04:14→17:17)
[2021-11-30] MEDS: SODIUM CHLORIDE FLUSH 0.9% 10 ML SYRINGE IVP PRN ×3 (04:18→22:57)
[2021-11-30] MEDS: VANCOMYCIN INJ 1 GM in SODIUM CHLORIDE 0.9% 250 ML IV SCH ×3 (05:13→21:01)
[2021-11-30 05:46] LABS: CALCIUM, IONIZED 1.12 mmol/L (1.15-1.33); VBG PH 7.412 (7.31-7.41)
[2021-11-30 06:01] LABS: BASOPHILS # (AUTO) 0.1 10^3/uL (0.0-0.1); BASOPHILS % (AUTO) 0.8 %; EOSINOPHILS % (AUTO) 0.5 %; HCT - HEMATOCRIT 26.7 % (37.0-47.0); LYMPHOCYTES # (AUTO) 2.8 10^3/uL (1.5-3.5); LYMPHOCYTES % (AUTO) 34.8 %; MEAN CORPUSCULAR HEMOGLOBIN 30.7 pg (27.0-31.0); MEAN CORPUSCULAR HGB CONC 33.7 g/dL (32.0-36.0); MEAN CORPUSCULAR VOLUME 91.1 fL (81.0-99.0); MEAN PLATELET VOLUME 10.1 fL (7.9-10.8); MONOCYTES # (AUTO) 0.2 10^3/uL (0.0-1.0); NEUTROPHILS # (AUTO) 4.8 10^3/uL (1.5-6.6); NEUTROPHILS % (AUTO) 60.6 %; PLT - PLATELET COUNT 223 10^3/uL (130-450); RED BLOOD COUNT 2.93 10^6/uL (4.20-5.40); RED CELL DISTRIBUTION WIDTH 17.5 % (12.0-15.0); WHITE BLOOD COUNT 7.9 x10^3/uL (4.8-10.8)
[2021-11-30 06:02] LABS: ALBUMIN 3.3 g/dL (3.2-5.5); ALBUMIN/GLOBULIN RATIO 1.7 (1.0-2.2); ALKALINE PHOSPHATASE 71 IU/L (42-121); ALT ALANINE AMINOTRANSFERASE 30 IU/L (10-60); AST ASPARTATE AMINOTRANSFERASE 44 IU/L (10-42); BUN - BLOOD UREA NITROGEN < 5 mg/dL (6-20); CALCIUM 8.1 mg/dL (8.5-10.3); CARBON DIOXIDE - CO2 26 mmol/L (21-32); CHLORIDE 105 mmol/L (101-111); CREATININE 0.4 mg/dL (0.4-1.0); GFR - MDRD 173 (>89); GLUCOSE 168 mg/dL (70-100); MAGNESIUM 1.8 mg/dL (1.7-2.8); PHOSPHORUS 1.5 mg/dL (2.5-4.6); POTASSIUM 2.8 mmol/L (3.5-5.0); SODIUM 140 mmol/L (135-145); TOTAL PROTEIN 5.3 g/dL (6.7-8.2)
[2021-11-30] MEDS: PANTOPRAZOLE 40 MG VIAL IVP SCH (06:45)
[2021-11-30] MEDS ORDERED: MAGNESIUM SULFATE 2 GRAM 2 GM/50 ML BAG IV ONE (07:00)
[2021-11-30] MEDS ORDERED: POTASSIUM CHLOR 20 MEQ/100 ML 20 MEQ/100 ML BAG IV SCH ×2 (07:00)
[2021-11-30] MEDS: polyethylene glycoL 3350 17 GM PACKET PO SCH (07:39)
[2021-11-30] MEDS: DOCUSATE SODIUM 250 MG CAPSULE PO SCH (07:39)
[2021-11-30] MEDS ORDERED: POTASSIUM CHLOR 10 MEQ/100 ML 10 MEQ/100 ML BAG IV SCH (08:00)
[2021-11-30] MEDS: SENNA 8.6 MG TABLET PO SCH (08:27)
[2021-11-30] MEDS: NICOTINE 14 MG PATCH TOP SCH (08:34)
[2021-11-30] MEDS: THIAMINE 100 MG TABLET PO SCH (08:37)
[2021-11-30] MEDS: PRENATAL VITAMIN TABLET PO SCH (08:37)
[2021-11-30] MEDS ORDERED: POTASSIUM PHOSPHATE 21 MMOL in SODIUM CHLORIDE 0.9% 250 ML IV ONE (09:00)
[2021-11-30 10:16] LABS: MAGNESIUM 2.3 mg/dL (1.7-2.8); POTASSIUM 2.9 mmol/L (3.5-5.0)
[2021-11-30] MEDS: POTASSIUM CHLOR 10 MEQ/100 ML 10 MEQ/100 ML BAG IV SCH ×4 (13:12→16:54)
[2021-11-30] MEDS: LIDOCAINE PATCH 5% TOP PRN (13:44)
[2021-11-30] MEDS: POTASSIUM CHLOR 20 MEQ/100 ML 20 MEQ/100 ML BAG IV SCH ×2 (19:58→21:02)
--- NOTE | 2021-11-30 21:20 | PROVIDER PROGRESS NOTE ---
Assessment/Plan - Problem List (1) Sepsis Assessment/Plan: 11/30/21 Antibiotics discontinued today. Blood cultures are no growth to date. Patient made Med/Surg Status Anticipate discharged on 12/01/2021. 11/29/21 WBC improved from 26.3 yesterday down to 9.8 today. Lactic acid is down to 2.2. Blood cultures are no growth to date. We will continue vancomycin, cefepime and Flagyl for 1 more day. Continue IV hydration with normal saline at 125 mL/h. 11/28/[address] of the abdomen/pelvis showed colitis. Blood cultures drawn. WBC was 26.3 with lactic acid of 9.2. Patient was started on vancomycin, cefepime and Flagyl. We will continue. She was given a liter of sodium bicarbonate. We will hold off on further administration for now. Continue IV hydration with normal saline at 125 mL/h. Lactic acid check q. 4 hours x 2. Patient was admitted to the ICU. (2) Colitis Assessment/Plan: 11/30/21 Abdominal pain significantly improved. Antibiotics discontinued today 11/30/2021. Advanced diet tolerated. 11/29/21 This was shown on CT of abdomen/pelvis done in the ED. Patient is currently on cefepime, vancomycin and Flagyl. We will continue to monitor. (3) Dehydration Assessment/Plan: Resolved. IV hydration discontinued since patient is adequately drinking liquids. (4) Lactic acidosis Assessment/Plan: 11/29/21 Improved/resolved. Lactic acid today was 2.2. Continue IV hydration with normal saline at 125 mL/h. 11/28/21 Etiology undetermined. Suspect alcohol abuse and/or sepsis When 1 L sodium bicarbonate solution in the ED. She also received 1 L of normal saline. We will continue IV hydration with normal saline at 125 mL/h. We will trend lactic acid x2 more. (5) Alcohol abuse Assessment/Plan: On [facility] protocol. Librium 25 mg p.o. 3 times daily ordered. Multivitamin ordered - Current Meds Current Meds: Current Medications Generic Name Dose Route Start Last Admin Trade Name Freq PRN Reason Stop Dose Admin Acetaminophen 650 mg 11/28/21 20:19 11/30/21 20:23 Acetaminophen 325 Mg Tablet PO 650 mg Q4HR PRN Administration Pain 1 to 4 Chlordiazepoxide HCl 25 mg 11/28/21 21:00 11/30/21 20:22 Chlordiazepoxide 25 Mg Capsule PO 25 mg Q8H AL Administration Docusate Sodium 250 - 500 mg 11/29/21 11:00 11/30/21 07:39 Docusate Sodium 250 Mg Capsule PO Not Given DAILY AL Cefepime HCl 2 gm/ Sodium 100 mls @ 200 mls/hr 11/29/21 05:00 11/30/21 19:32 Chloride IV Infused Q12H AL Infusion Metronidazole 500 mg in 100 mls @ 100 mls/hr 11/29/21 01:00 11/30/21 18:25 Flagyl 500 Mg/100 Ml IV Infused Q8H AL Infusion Sodium Chloride 500 mls @ 20 mls/hr 11/29/21 00:16 11/30/21 14:42 Normal Saline 0.9% IV 20 mls/hr Q24H PRN Infusion TKO RATE Vancomycin HCl 1 gm/ Sodium 250 mls @ 167 mls/hr 11/29/21 13:00 11/30/21 21:01 Chloride IV 167 mls/hr Q8H AL Administration Potassium Chloride 20 meq in 100 mls @ 100 mls/hr 11/30/21 20:00 11/30/21 21:02 Potassium Chloride IV 11/30/21 21:59 100 mls/hr Q1H AL Administration Protocol Lidocaine 1 patch 11/29/21 10:58 11/30/21 13:44 Lidocaine Patch 5% TOP 1 patch DAILY PRN Administration PAIN Lorazepam 1 mg 11/28/21 20:30 11/30/21 08:23 Lorazepam 2 Mg/Ml Vial IVP 1 mg Q30M PRN Administration CIWA >8 Protocol Nicotine 1 patch 11/29/21 09:00 11/30/21 08:34 Nicotine 14 Mg Patch TOP 1 patch DAILY AL Administration Ondansetron HCl 4 mg 11/28/21 20:19 11/29/21 09:32 Ondansetron 4 Mg/2 Ml Vial IVP 4 mg Q6HR PRN Administration Nausea / Vomiting Oxycodone HCl 5 mg 11/28/21 21:22 11/30/21 18:23 Oxycodone 5 Mg Tablet PO 5 mg Q4HR PRN Administration PAIN Polyethylene Glycol 17 gm 11/29/21 11:00 11/30/21 07:39 Polyethylene Glycol 3350 17 Gm Packet PO Not Given DAILY AL Multivit/Folic Acid/Iron 1 tab 11/29/21 09:00 11/30/21 08:37 Vitamin Tablet PO 1 tab DAILY AL Administration Senna 8.6 - 17.2 mg 11/29/21 11:00 11/30/21 08:27 Senna 8.6 Mg Tablet PO Not Given DAILY AL Sodium Chloride 10 ml 11/29/21 01:00 11/30/21 17:25 Sodium Chloride Flush 0.9% 10 Ml Syringe IVP 10 ml 0100,0900,1700 AL Administration Sodium Chloride 10 ml 11/28/21 20:14 11/30/21 06:45 Sodium Chloride Flush 0.9% 10 Ml Syringe IVP 10 ml PRN PRN Administration NEEDED PER PROVIDER ORDERS Sodium Chloride 20 ml 11/28/21 23:51 11/30/21 04:18 Sodium Chloride Flush 0.9% 10 Ml Syringe IVP 20 ml PRN PRN Administration After Blood Draw Thiamine HCl 100 mg 11/29/21 09:00 11/30/21 08:37 Thiamine 100 Mg Tablet PO 100 mg DAILY AL Administration - Lab Result Fish Bone Diagrams: 11/30/21 04:15 11/30/21 18:45 - Additional Planning My Orders: My Active Orders 12/01/21 05:00 CALCIUM, IONIZED ([facility]) [BG] DAILYLAB CBC - COMP BLD CT W/AUTO DIFF [HEME] DAILYLAB COMPREHENSIVE METABOLIC PANEL [CHEM] DAILYLAB 12/01/21 07:00 Pantoprazole [Protonix] 40 mg PO QDAC 12/02/21 05:00 CBC - COMP BLD CT W/AUTO DIFF [HEME] DAILYLAB COMPREHENSIVE METABOLIC PANEL [CHEM] DAILYLAB 12/03/21 05:00 CBC - COMP BLD CT W/AUTO DIFF [HEME] DAILYLAB COMPREHENSIVE METABOLIC PANEL [CHEM] DAILYLAB Subjective - Subjective Patient Reports: Other (Resting comfortably in bed. No new complaints however patient complains of lower back pain which is chronic and discomfort at the site of central line on the right side of her neck.) Objective Vital Signs: Vital Signs - 24 hr 11/29/21 11/29/21 11/29/21 22:00 23:00 23:24 Temperature 37.1 C Heart Rate [ 93 86 Monitoring electrodes] Respiratory 17 18 Rate Blood Pressure 107/73 124/91 H [Right brachial artery] O2 Saturation 95 96 11/30/21 11/30/21 11/30/21 00:00 03:06 06:00 Temperature 36.6 C Heart Rate [ 96 91 Monitoring electrodes] Respiratory 17 20 Rate Blood Pressure 112/76 128/93 H [Right brachial artery] O2 Saturation 94 96 11/30/21 11/30/21 11/30/21 08:00 12:00 17:24 Temperature 36.6 C 36.8 C Heart Rate [ 93 86 96 Monitoring electrodes] Respiratory 17 16 20 Rate Blood Pressure 122/92 H 138/97 H [Right brachial artery] O2 Saturation 97 95 100 Oxygen O2 Source Room air I&O (Last 24 Hrs): Intake and Output Totals x24h 11/28/21 11/29/21 11/30/21 23:59 23:59 23:59 Intake Total 4094.333 9884.166 7260.417 Output Total 350 5550 7325 Balance 3744.333 4334.166 -64.583 Comments/Notes: General: Alert, Oriented x3, Mild distress HEENT: PERRLA, EOMI Neck: Supple, No JVD Neuro: Alert, Oriented Times 3 Cardiovascular: Regular rate, Normal S1, Normal S2, No murmurs Respiratory: Chest non-tender, No respiratory distress, Breath sounds nml Abdomen: Normal bowel sounds, Soft, Other (Mild abdominal tenderness) Extremities: No clubbing, No cyanosis, No edema Skin: No rashes, No breakdown, No significant lesion - Results Results: Laboratory Results WBC 7.9 x10^3/uL (4.8-10.8) 11/30/21 04:15 RBC 2.93 10^6/uL (4.20-5.40) L 11/30/21 04:15 Hgb 9.0 g/dL (12.0-16.0) L 11/30/21 04:15 Hct 26.7 % (37.0-47.0) L 11/30/21 04:15 MCV 91.1 fL (81.0-99.0) 11/30/21 04:15 MCH 30.7 pg (27.0-31.0) 11/30/21 04:15 MCHC 33.7 g/dL (32.0-36.0) 11/30/21 04:15 RDW 17.5 % (12.0-15.0) H 11/30/21 04:15 Plt Count 223 10^3/uL (130-450) 11/30/21 04:15 MPV 10.1 fL (7.9-10.8) 11/30/21 04:15 Neut # (Auto) 4.8 10^3/uL (1.5-6.6) 11/30/21 04:15 Lymph # (Auto) 2.8 10^3/uL (1.5-3.5) 11/30/21 04:15 [place] # (Auto) 0.2 10^3/uL (0.0-1.0) 11/30/21 04:15 Eos # (Auto) 0.0 10^3/uL (0.0-0.7) 11/30/21 04:15 Baso # (Auto) 0.1 10^3/uL (0.0-0.1) 11/30/21 04:15 Absolute Nucleated RBC 0.00 x10^3/uL 11/30/21 04:15 Total Counted 100 11/28/21 20:37 Band Neuts % (Manual) 0 % (0-10) 11/28/21 20:37 Abnorm Lymph % (Manual) 0 % 11/28/21 20:37 Nucleated RBC % 0.0 /100WBC 11/30/21 04:15 Neutrophils # (Manual) 21.7 10^3/uL (1.5-6.6) H 11/28/21 20:37 Lymphocytes # (Manual) 2.6 10^3/uL (1.5-3.5) 11/28/21 20:37 Monocytes # (Manual) 1.3 10^3/uL (0.0-1.0) H 11/28/21 20:37 Eosinophils # (Manual) 0.0 10^3/uL (0-0.7) 11/28/21 20:37 Basophils # (Manual) 0.0 10^3/uL (0-0.1) 11/28/21 20:37 Differential Comment MANUAL DIFFERENTIAL 11/28/21 20:37 Platelet Estimate NORMAL (130-450,000) (NORMAL) 11/28/21 20:37 Platelet Morphology NORMAL APPEARANCE (NORMAL) 11/28/21 20:37 RBC Morph Micro Appear 1+ ANISOCYTOSIS (NORMAL) 11/28/21 20:37 PT 12.7 secs (9.9-12.6) H 11/28/21 15:25 INR 1.1 (0.8-1.2) 11/28/21 15:25 Bld Gas Analysis Time 1609 11/28/21 06:05 Sample Site RIGHT BRACHIAL 11/28/21 06:05 ABG pH 7.11 (7.35-7.45) L* 11/28/21 06:05 ABG pCO2 19 mmHg (34-45) L* 11/28/21 06:05 ABG pO2 158 mmHg (80-100) H* 11/28/21 06:05 ABG HCO3 5.7 mmol/L (22.0-26.0) L 11/28/21 06:05 ABG Total CO2 6.3 MMOL/L (21.0-29.0) L* 11/28/21 06:05 ABG O2 Saturation 99 % (94-98) H 11/28/21 06:05 ABG Base Excess -21.9 mmol/L (-2.0-3.0) L 11/28/21 06:05 Christo Test NOT APPLICABLE 11/28/21 06:05 VBG pH 7.412 (7.31-7.41) H 11/30/21 04:15 VBG pCO2 25.3 mmHg (41-51) L 11/28/21 15:25 VBG pO2 59.4 mmHg (25-47) H 11/28/21 15:25 VBG HCO3 7.2 mmol/L (23-28) L 11/28/21 15:25 VBG Total CO2 8.0 mmol/L (24-29) L 11/28/21 15:25 VBG O2 Saturation 80.5 % (60-80) H 11/28/21 15:25 VBG Base Excess -21.4 mmol/L (-2 - +2) L 11/28/21 15:25 Ionized Calcium 1.12 mmol/L (1.15-1.33) L 11/30/21 04:15 Room Air YES 11/28/21 06:05 Sodium 140 mmol/L (135-145) 11/30/21 04:15 Potassium 3.2 mmol/L (3.5-5.0) L 11/30/21 18:45 Chloride 105 mmol/L (101-111) 11/30/21 04:15 Carbon Dioxide 26 mmol/L (21-32) 11/30/21 04:15 Anion Gap 9.0 (6-13) 11/30/21 04:15 BUN < 5 mg/dL (6-20) L 11/30/21 04:15 Creatinine 0.4 mg/dL (0.4-1.0) 11/30/21 04:15 Estimated GFR (MDRD) 173 (>89) 11/30/21 04:15 Glucose 168 mg/dL (70-100) H 11/30/21 04:15 Lactic Acid 2.2 mmol/L (0.5-2.2) 11/29/21 20:15 Calcium 8.1 mg/dL (8.5-10.3) L 11/30/21 04:15 Phosphorus 2.9 mg/dL (2.5-4.6) 11/30/21 15:15 Magnesium 2.3 mg/dL (1.7-2.8) 11/30/21 09:56 Total Bilirubin 1.0 mg/dL (0.2-1.0) 11/30/21 04:15 AST 44 IU/L (10-42) H 11/30/21 04:15 ALT 30 IU/L (10-60) 11/30/21 04:15 Alkaline Phosphatase 71 IU/L (42-121) 11/30/21 04:15 Total Protein 5.3 g/dL (6.7-8.2) L 11/30/21 04:15 Albumin 3.3 g/dL (3.2-5.5) 11/30/21 04:15 Globulin 2.0 g/dL (2.1-4.2) L 11/30/21 04:15 Albumin/Globulin Ratio 1.7 (1.0-2.2) 11/30/21 04:15 Lipase 23 U/L (22-51) 11/28/21 15:25 Urine Color YELLOW 11/28/21 16:45 Urine Clarity HAZY (CLEAR) 11/28/21 16:45 Urine pH 6.0 PH (5.0-7.5) 11/28/21 16:45 Ur Specific [place] 1.020 (1.002-1.030) 11/28/21 16:45 Urine Protein 30 mg/dL (NEGATIVE) H 11/28/21 16:45 Urine Glucose (UA) NEGATIVE mg/dL (NEGATIVE) 11/28/21 16:45 Urine Ketones 40 mg/dL (NEGATIVE) H 11/28/21 16:45 Urine Occult Blood LARGE (NEGATIVE) H 11/28/21 16:45 Urine Nitrite NEGATIVE (NEGATIVE) 11/28/21 16:45 Urine Bilirubin NEGATIVE (NEGATIVE) 11/28/21 16:45 Urine Urobilinogen 0.2 (NORMAL) E.U./dL (NORMAL) 11/28/21 16:45 Ur Leukocyte Esterase NEGATIVE (NEGATIVE) 11/28/21 16:45 Urine RBC 6-10 /HPF (0-5) H 11/28/21 16:45 Urine WBC 4-5 /HPF (0-5) 11/28/21 16:45 Ur Squamous Epith Cells MOD Squamous (<= Few) H 11/28/21 16:45 Urine Bacteria Few /HPF (None Seen) 11/28/21 16:45 Ur Microscopic Review INDICATED 11/28/21 16:45 Urine Culture Comments NOT INDICATED 11/28/21 16:45 Urine HCG, Qual NEGATIVE 11/28/21 16:45 Nasal Screen MRSA (PCR) NEGATIVE (NEGATIVE) 11/28/21 21:30 Last Dose Date 11/29/21 11/30/21 12:04 Last Dose Time 13:00 11/30/21 12:04 Vancomycin Trough 16.0 ug/mL (10.0-20.0) 11/30/21 12:04 Urine Opiates Screen POSITIVE (NEGATIVE) H 11/28/21 16:45 Ur Oxycodone Screen NEGATIVE (NEGATIVE) 11/28/21 16:45 Urine Methadone Screen NEGATIVE (NEGATIVE) 11/28/21 16:45 Ur Propoxyphene Screen NEGATIVE (NEGATIVE) 11/28/21 16:45 Ur Barbiturates Screen NEGATIVE (NEGATIVE) 11/28/21 16:45 Ur Tricyclics Screen NEGATIVE (NEGATIVE) 11/28/21 16:45 Ur Phencyclidine Scrn NEGATIVE (NEGATIVE) 11/28/21 16:45 Ur Amphetamine Screen NEGATIVE (NEGATIVE) 11/28/21 16:45 U Methamphetamines Scrn NEGATIVE (NEGATIVE) 11/28/21 16:45 U Benzodiazepines Scrn NEGATIVE (NEGATIVE) 11/28/21 16:45 Urine Cocaine Screen NEGATIVE (NEGATIVE) 11/28/21 16:45 U Cannabinoids Screen POSITIVE (NEGATIVE) H 11/28/21 16:45 Ethyl Alcohol 95.6 mg/dL 11/28/21 15:25 Serum Ketones SMALL (NEGATIVE) H 11/28/21 15:25 SARS-CoV-2 (PCR) NOT DETECTED 11/28/21 16:30 Sepsis Event Note (H) - Evaluation Current Stage of Sepsis: Sepsis Possible source of Sepsis: positive: GI tract/intra-abdominal - Sepsis Criteria Sepsis Criteria: Recorded Heart Rate greater than 90 bpm, WBC count greater than 12,000 or less than 4000, Metabolic: lactate > 2 mmol/L ABX Reporting Has patient been on IV antibiotics over the past 48 hours?: Yes
[2021-12-01] MEDS: ACETAMINOPHEN 325 MG TABLET PO PRN (03:20)
[2021-12-01] MEDS: oxyCODONE 5 MG TABLET PO PRN ×2 (03:20→11:01)
[2021-12-01] MEDS: chlordiazePOXIDE 25 MG CAPSULE PO SCH (05:11)
[2021-12-01] MEDS: SODIUM CHLORIDE FLUSH 0.9% 10 ML SYRINGE IVP PRN (05:11)
[2021-12-01 05:21] LABS: BASOPHILS # (AUTO) 0.1 10^3/uL (0.0-0.1); BASOPHILS % (AUTO) 1.3 %; EOSINOPHILS # (AUTO) 0.1 10^3/uL (0.0-0.7); EOSINOPHILS % (AUTO) 2.3 %; HCT - HEMATOCRIT 26.9 % (37.0-47.0); HGB - HEMOGLOBIN 8.9 g/dL (12.0-16.0); LYMPHOCYTES # (AUTO) 2.1 10^3/uL (1.5-3.5); MEAN CORPUSCULAR HEMOGLOBIN 30.7 pg (27.0-31.0); MEAN CORPUSCULAR HGB CONC 33.1 g/dL (32.0-36.0); MEAN CORPUSCULAR VOLUME 92.8 fL (81.0-99.0); MEAN PLATELET VOLUME 9.3 fL (7.9-10.8); MONOCYTES # (AUTO) 0.2 10^3/uL (0.0-1.0); MONOCYTES % (AUTO) 5.8 %; NEUTROPHILS # (AUTO) 1.6 10^3/uL (1.5-6.6); NEUTROPHILS % (AUTO) 38.6 %; PLT - PLATELET COUNT 174 10^3/uL (130-450)
[2021-12-01 05:23] LABS: CALCIUM, IONIZED 1.13 mmol/L (1.15-1.33); VBG PH 7.447 (7.31-7.41)
[2021-12-01 05:43] LABS: ALBUMIN 3.3 g/dL (3.2-5.5); ALBUMIN/GLOBULIN RATIO 1.7 (1.0-2.2); ALKALINE PHOSPHATASE 71 IU/L (42-121); ALT ALANINE AMINOTRANSFERASE 30 IU/L (10-60); AST ASPARTATE AMINOTRANSFERASE 57 IU/L (10-42); BILIRUBIN,TOTAL 0.9 mg/dL (0.2-1.0); BUN - BLOOD UREA NITROGEN < 5 mg/dL (6-20); CALCIUM 8.5 mg/dL (8.5-10.3); CARBON DIOXIDE - CO2 27 mmol/L (21-32); CHLORIDE 107 mmol/L (101-111); CREATININE 0.4 mg/dL (0.4-1.0); GFR - MDRD 173 (>89); GLUCOSE 110 mg/dL (70-100); MAGNESIUM 1.9 mg/dL (1.7-2.8); PHOSPHORUS 2.9 mg/dL (2.5-4.6); POTASSIUM 3.2 mmol/L (3.5-5.0); SODIUM 142 mmol/L (135-145); TOTAL PROTEIN 5.2 g/dL (6.7-8.2)
[2021-12-01] MEDS ORDERED: PANTOPRAZOLE 40 MG TABLET PO SCH (07:00)
[2021-12-01] MEDS ORDERED: POTASSIUM CHLORIDE 20 MEQ TABLET PO SCH (08:00)
[2021-12-01] MEDS: polyethylene glycoL 3350 17 GM PACKET PO SCH (08:38)
[2021-12-01] MEDS: THIAMINE 100 MG TABLET PO SCH (08:38)
[2021-12-01] MEDS: PRENATAL VITAMIN TABLET PO SCH (08:38)
[2021-12-01] MEDS: NICOTINE 14 MG PATCH TOP SCH (08:52)
[2021-12-01] MEDS: SENNA 8.6 MG TABLET PO SCH (08:53)
[2021-12-01] MEDS: DOCUSATE SODIUM 250 MG CAPSULE PO SCH (08:53)
--- NOTE | 2021-12-01 09:21 | Discharge Plan ---
Discharge Plan Problem Reviewed?: Yes Disposition: Home, Self Care Condition: Good Prescriptions: Pnv No.121/Iron/Folic Acid [ Multivitamin Tablet] 1 each PO DAILY #30 tablet Thiamine [Vitamin B-1] 100 mg PO DAILY #30 tablet Diet: Regular Activity Restrictions: Activity as Tolerated Shower Restrictions: No Driving Restrictions: No Health Concerns: You have a history of alcohol abuse that is complicated by alcoholic pancreatitis history. You also have episodes of alcohol withdrawal. You were seen in our emergency room after being brought in by ambulance because you started having right-sided abdominal pain and vomiting that had been going on for a couple of days. It was associated with decreased bowel movements. After evaluation we found her to have severe electrolyte abnormalities with low potassium, dehydration, and an elevated lactic acid. We were afraid that you are having an episode of infection but we now feel that it was just a severe inflammatory response from your liver causing all of these problems. You have responded to vitamins, intravenous fluids for hydration, and medicines for nausea and vomiting. You now feels stable enough to return home. You have been able to keep food down and your abdominal pain is controlled. Plan of Treatment: 1. Please see your primary care provider, Mireille Bruner, in the next 1 to 2 weeks for follow-up. 2. Please make sure you take a multivitamin and a thiamine tablet every day. Those vitamins are needed when someone has chronic alcohol changes in their bowel and liver. It helps prevent brain damage. 3. You stated that you do not want to do alcohol rehab, or get an AA sponsor, or see a counselor. You have spoken to your family and are going to quit cold turkey because you have a 7-year-old and a 12-year-old at home. You need to be more present in your children's life. However, if you feel yourself sliding back, please take advantage of some of the places you could go to for help as identified by our high school social studies tutor. Care Goals: To remain off alcohol and avoid the complications of pancreatitis, alcoholic dementia, and cirrhotic liver disease. Assessment: Patient is stating her care goals of stopping drinking and declines rehab or AA at this time No Smoking: If you smoke, Please STOP! Call for help. Follow-up with: Provider,Other [Primary Care Provider] -
--- NOTE | 2021-12-01 09:30 | DISCHARGE SUMMARY ---
"Discharge Summary Admit Date: 11/28/21 Discharge Date: 12/01/21 Discharging Provider: Ada Steele MD Primary Care Provider: Mireille Bruner Code Status: Attempt Resuscitation Condition at Discharge: Good Discharge Disposition: 01 Home, Self Care - DIAGNOSES Discharge Diagnoses with Status of Each Condition: 1. Abdominal pain, diffuse, resolved 2. SIRS due to noninfectious process without acute organ dysfunction, resolved 3. Gastroenteritis 4. Chronic alcohol abuse 5. History of pancreatitis 6. Dehydration 7. Lactic acidosis - HPI History of Present Illness: 46-year-old female with history of alcohol abuse and alcoholic pancreatitis who presented to the ED with complaint of right-sided abdominal pain, nausea and vomiting. Her symptoms have been going on for the past 2 days. She also repor yamilex no bowel movement in the past 1 week. She denied eating anything bad. She has not traveled recently. Her daughter has been sick with flu-like symptoms. She reports that her last alcohol consumption was yesterday when she drank 2 shots of whiskey. In the ED she was noted to be tachycardic with heart rate in the 120s. Work-up included a BMP which showed a bicarbonate level of 8. She also had a lactic acid of 9.2 and creatinine 1.5. She had a WBC of 26.3. CT of the abdomen pelvis showed diffuse nodular thickening throughout the colon for which a potential infectious cause was suspected. She was presented for admission for further management. 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 Please correlate with potential infectious and inflammatory causes of colitis including C. difficile colitis. The colon appears similar to December 12, 2020. No abscess or perforation. No dilated loops of bowel. Normal appendix. Gallbladder prominent in size but no CT abnormality. Chest x-ray with the tip of a right-sided central line overlying the inferior aspect of the superior vena cava. No pleural effusions no pneumothorax. Lungs are clear. Blood cultures negative after 2 days from November 28. - HOSPITAL COURSE Hospital Course: The patient was treated for her symptoms of abdominal pain, nausea, and received IV fluids, pain medicines, nausea medicines. She was also placed on empiric antibiotic therapy with cefepime. Flagyl. She did have some electrolyte ab normalities requiring copious potassium supplementation. She also received Librium as needed for possible alcohol withdrawal. Patient was initially n.p.o. then transition to a diet that she was able to keep food down with. Abdominal pain remained vague and on the right side without rebound or guarding and normal bowel sounds. Although her abdominal pain was at times attributed to chronic pancreatitis, it was more right-sided than left-sided. The fact that her bowel continues to be nodular and abnormal from a previous CAT scan to now indicates the patient should probably have a colonoscopy for diagnosis. I shared that with her. Dehydration, lactic acidosis resolved. White cell count went to normal. She was initially treated as sepsis from a bowel source due to the CT scan. However clinically she did not follow a pattern of diverticulitis, cholecystitis or appendicitis. She appeared to have diffuse enteritis. Antibiotics were not continued at discharge. She did not have diarrhea. Tox screen was positive for cannabis and opiates with a small amount of ketones. Ethyl alcohol level on admission was 95.6. Patient was eating and keeping down her food. Without abdominal pain. Ambulating in her room but the day of discharge. Exam at discharge with a temperature of 36.9. Heart rate 91. Blood pressure 130/96. Respirations 17. 98% on room air. She is 5 foot 2 inches tall and weighs 65.5 kg. She is a slender, fatigued appearing white female who looks older than stated age. Neck is supple. Oral mucosa is pink and moist. Lungs are clear to auscultation and percussion. Regular rate and rhythm. Abdomen still has vague right mid abdominal aching with palpation but no rebound or guarding and bowel sounds are normal. There are no masses. Extremities are without clubbing cyanosis or edema. She is alert, oriented, ambulating in her room without any deficits, ataxia, or tremulousness. Greater than 30 minutes was spent coordinating discharge. I explained that she cannot drink any alcohol, ever, again. Her risk of pancreatitis and the complications could lead to . She says that she was not ever going to drink again because of her 2 small children at home.. - ALLERGIES Allergies/Adverse Reactions: Allergies Allergy/AdvReac Type Severity Reaction Status Date / Time No Known Drug Allergies Allergy Verified 11/28/21 15:15 - MEDICATIONS Home Medications: Ambulatory Orders Medication Instructions Recorded Confirmed Albuterol Sulfate [Albuterol 2 puffs IH Q4H PRN 05/06/20 11/29/21 Sulfate Hfa] Ibuprofen [Motrin] 800 mg PO DAILY PRN 11/29/21 11/29/21 Pnv No.121/Iron/Folic Acid 1 each PO DAILY #30 tablet 12/01/21 [ Multivitamin Tablet] Thiamine [Vitamin B-1] 100 mg PO DAILY #30 tablet 12/01/21 - LABS Result Diagrams: 12/01/21 05:12 12/01/21 05:12"
[2021-12-01] MEDS: SODIUM CHLORIDE FLUSH 0.9% 10 ML SYRINGE IVP SCH (10:12)
[2021-12-01 11:50] VITALS: BP 130/96
== END 2021-12-01 12:05 | disposition home or self-care (01) | DRG 872 ==
LOC: EDUNIT# → ED 15:08 → ICU 20:14
PROVIDERS: ADMIT Internal Medicine; ATTEND Specialist
DX: A41.9 Sepsis, unspecified organism (principal); E87.2 Acidosis; K86.0 Alcohol-induced chronic pancreatitis; F10.139 Alcohol abuse with withdrawal, unspecified; K52.9 Noninfective gastroenteritis and colitis, unspecified; E86.0 Dehydration; I10 Essential (primary) hypertension; F17.200 Nicotine dependence, unspecified, uncomplicated; F32.A Depression, unspecified; F41.9 Anxiety disorder, unspecified; Z20.822 Contact with and (suspected) exposure to COVID-19; Z32.02 Encounter for pregnancy test, result negative
CPT/HCPCS: 36415; 36556; 74177; 80053; 80202; 80306; 80320; 81001; 81025; 82009; 82330; 82803; 83605; 83690; 83735; 84100; 84132; 85025; 85610; 87040; 87150; 87635; 96361; 96365; 96366; 96368; 96375; 96376; 99285; 99291; A9270; J1170; J2060; J2765; J3370; J3411; J7040; J7120; Q9967; 81003; 87086

== ENCOUNTER 2021-12-03 22:18 | Outpatient (CLI) | payer MEDICAID ==
[2021-12-03 22:32] LABS: BASOPHILS % (AUTO) 0.5 %; EOSINOPHILS # (AUTO) 0.1 10^3/uL (0.0-0.7); EOSINOPHILS % (AUTO) 1.6 %; HCT - HEMATOCRIT 32.6 % (37.0-47.0); HGB - HEMOGLOBIN 10.5 g/dL (12.0-16.0); LYMPHOCYTES # (AUTO) 2.5 10^3/uL (1.5-3.5); LYMPHOCYTES % (AUTO) 33.4 %; MEAN CORPUSCULAR HEMOGLOBIN 30.8 pg (27.0-31.0); MEAN CORPUSCULAR HGB CONC 32.2 g/dL (32.0-36.0); MEAN CORPUSCULAR VOLUME 95.6 fL (81.0-99.0); MEAN PLATELET VOLUME 9.3 fL (7.9-10.8); MONOCYTES # (AUTO) 0.7 10^3/uL (0.0-1.0); MONOCYTES % (AUTO) 9.8 %; NEUTROPHILS % (AUTO) 54.4 %; PLT - PLATELET COUNT 245 10^3/uL (130-450); RED BLOOD COUNT 3.41 10^6/uL (4.20-5.40); RED CELL DISTRIBUTION WIDTH 19.9 % (12.0-15.0); WHITE BLOOD COUNT 7.4 x10^3/uL (4.8-10.8)
[2021-12-03 22:37] LABS: BILIRUBIN,URINE NEGATIVE (NEGATIVE); CLARITY,URINE CLEAR (CLEAR); GLUCOSE, URINE (UA) NEGATIVE (NEGATIVE); KETONES,URINE (UA) NEGATIVE (NEGATIVE); LEUKOCYTE ESTERASE, URINE TRACE (NEGATIVE); NITRITE,URINE NEGATIVE (NEGATIVE); OCCULT BLOOD,URINE NEGATIVE (NEGATIVE); PH,URINE 6.5 PH (5.0-7.5); PROTEIN,URINE TRACE mg/dL (NEGATIVE); UROBILINOGEN,URINE 0.2 (NORMAL) E.U./dL (NORMAL)
[2021-12-03 22:43] LABS: BACTERIA,URINE Rare /HPF (None Seen); RBC,URINE None Seen /HPF (0-5); SQUAMOUS EPITHELIAL CELL,UR MOD Squamous (<= Few); WBC,URINE 0-3 /HPF (0-5)
[2021-12-03 22:45] LABS: ALBUMIN 4.1 g/dL (3.2-5.5); ALBUMIN/GLOBULIN RATIO 1.6 (1.0-2.2); BILIRUBIN,TOTAL 0.4 mg/dL (0.2-1.0); CALCIUM 9.1 mg/dL (8.5-10.3); CREATININE 0.5 mg/dL (0.4-1.0); POTASSIUM 3.9 mmol/L (3.5-5.0); TOTAL PROTEIN 6.7 g/dL (6.7-8.2)
== END 2021-12-03 22:19 | disposition home or self-care (01) ==
LOC: LAB 22:18
PROVIDERS: ATTEND Nurse Practitioner
DX: R10.31 Right lower quadrant pain (principal)
CPT/HCPCS: 36415; 80053; 81001; 82150; 83615; 83690; 85025; 87086

== ENCOUNTER 2022-01-01 17:54 | Emergency (ER) | payer MEDICAID ==
[2022-01-01] MEDS ORDERED: HYDROmorphone 1 MG/ML CARPUJECT IVP STA (18:18)
[2022-01-01] MEDS ORDERED: SODIUM CHLORIDE 0.9% 1,000 ML IV STA (18:18)
[2022-01-01] MEDS ORDERED: ONDANSETRON 4 MG/2 ML VIAL IVP STA (18:18)
--- NOTE | 2022-01-01 18:20 | ED Physician Documentation ---
PD HPI ABD PAIN - Stated complaint Stated Complaint: ABD & BACK PX - Chief complaint Chief Complaint: Abd Pain - History obtained from History obtained from: Patient - Additional information Additional information: 46-year-old woman with history of alcoholism, although she states she has not drank since she was discharged from this hospital last month where she had a few day stay for SIRS and colitis. She has a history of pancreatitis and for the last 6 days has had upper abdominal pain radiating to the back similar to prior episodes of pancreatitis. No history of abdominal surgeries save and exploratory laparoscopy for endometriosis. No history of gallstones. Pain is severe and unrelenting. She is nauseous but has not vomited. Some constipation the last few days, perhaps due to poor appetite she thinks. 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: Other - Present Medications Home Medications: Ambulatory Orders Medication Instructions Recorded Confirmed Albuterol Sulfate [Albuterol 2 puffs IH Q4H PRN 05/06/20 11/29/21 Sulfate Hfa] Ibuprofen [Motrin] 800 mg PO DAILY PRN 11/29/21 11/29/21 Pnv No.121/Iron/Folic Acid 1 each PO DAILY #30 tablet 12/01/21 [ Multivitamin Tablet] Thiamine [Vitamin B-1] 100 mg PO DAILY #30 tablet 12/01/21 Omeprazole 40 mg PO DAILY #30 cap 01/01/22 Oxycodone HCl/Acetaminophen 1 - 2 each PO Q6H PRN #14 tablet 01/01/22 [Percocet 5-325 mg Tablet] - Allergies Allergies/Adverse Reactions: Allergies Allergy/AdvReac Type Severity Reaction Status Date / Time No Known Drug Allergies Allergy Verified 11/28/21 15:15 - Social History Does the pt smoke?: Yes Smoking Status: Current every day smoker Does the pt drink ETOH?: Yes Does the pt have substance abuse?: No - Immunizations Immunizations are current?: Yes Immunizations: TDAP >10years/unknown - POLST Patient has POLST: No POLST Status: Full Code PD ED PE NORMAL - Vitals Vital signs reviewed: Yes - General General: Alert and oriented X 3, Other (Appears uncomfortable) - HEENT HEENT: PERRL, EOMI - Neck Neck: Supple, no meningeal sign, No bony TTP - Cardiac Cardiac: Other (Tachycardic, regular without murmur) - Respiratory Respiratory: No respiratory distress, Clear bilaterally - Abdomen Abdomen: Normal bowel sounds, Soft, Other (Moderately tender in the upper abdomen without surgical signs) - Back Back: No CVA TTP, No spinal TTP - Derm Derm: Normal color, Warm and dry - Extremities Extremities: No edema, No calf tenderness / cord - 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, Normal speech Results - Vitals Vitals: Vital Signs - 24 hr 01/01/22 01/01/22 17:59 20:03 Temperature 36.3 C L 36.5 C Heart Rate 126 H 90 Respiratory 16 16 Rate Blood Pressure 141/107 H 128/88 H O2 Saturation 98 98 Oxygen O2 Source Room air - Labs Labs: Laboratory Tests 01/01/22 01/01/22 01/01/22 18:12 18:12 18:32 WBC 13.3 H RBC 4.64 Hgb 13.9 Hct 40.7 MCV 87.7 MCH 30.0 MCHC 34.2 RDW 18.4 H Plt Count 443 MPV 9.1 Neut # (Auto) 8.1 H Lymph # (Auto) 3.9 H [place] # (Auto) 1.0 Eos # (Auto) 0.2 Baso # (Auto) 0.1 Absolute Nucleated RBC 0.00 Nucleated RBC % 0.0 PT 13.2 H INR 1.2 VBG pH VBG pCO2 VBG pO2 VBG HCO3 VBG Total CO2 VBG O2 Saturation VBG Base Excess Sodium 132 L Potassium 3.5 Chloride 103 Carbon Dioxide 14 L Anion Gap 15.0 H BUN 22 H Creatinine 1.0 Estimated GFR (MDRD) 60 L Glucose 108 H Calcium 10.2 Magnesium 2.0 Total Bilirubin 0.6 AST 18 ALT 16 Alkaline Phosphatase 105 Total Protein 8.5 H Albumin 5.0 Globulin 3.5 Albumin/Globulin Ratio 1.4 Lipase 56 H Urine Color Urine Clarity Urine pH Ur Specific [place] Urine Protein Urine Glucose (UA) Urine Ketones Urine Occult Blood Urine Nitrite Urine Bilirubin Urine Urobilinogen Ur Leukocyte Esterase Urine RBC Urine WBC Ur Squamous Epith Cells Urine Bacteria Urine Casts Urine Mucus Ur Microscopic Review Urine Culture Comments Urine HCG, Qual Ethyl Alcohol < 5.0 Serum Ketones NEGATIVE 01/01/22 01/01/22 18:32 19:00 WBC RBC Hgb Hct MCV MCH MCHC RDW Plt Count MPV Neut # (Auto) Lymph # (Auto) [place] # (Auto) Eos # (Auto) Baso # (Auto) Absolute Nucleated RBC Nucleated RBC % PT INR VBG pH 7.318 VBG pCO2 27.2 L VBG pO2 95.4 H VBG HCO3 13.6 L VBG Total CO2 14.5 L VBG O2 Saturation 97.5 H VBG Base Excess -10.8 L Sodium Potassium Chloride Carbon Dioxide Anion Gap BUN Creatinine Estimated GFR (MDRD) Glucose Calcium Magnesium Total Bilirubin AST ALT Alkaline Phosphatase Total Protein Albumin Globulin Albumin/Globulin Ratio Lipase Urine Color YELLOW Urine Clarity HAZY Urine pH 6.0 Ur Specific [place] 1.025 Urine Protein 30 H Urine Glucose (UA) NEGATIVE Urine Ketones TRACE Urine Occult Blood NEGATIVE Urine Nitrite NEGATIVE Urine Bilirubin NEGATIVE Urine Urobilinogen 0.2 (NORMAL) Ur Leukocyte Esterase NEGATIVE Urine RBC 0-5 Urine WBC 4-5 Ur Squamous Epith Cells MANY Squamous H Urine Bacteria Few Urine Casts 3-5 WBC Casts Urine Mucus Few Strands Ur Microscopic Review INDICATED Urine Culture Comments NOT INDICATED Urine HCG, Qual NEGATIVE Ethyl Alcohol Serum Ketones PD MEDICAL DECISION MAKING - ED course ED course: 46-year-old woman presents for 6 days of upper abdominal pain. She has a history of pancreatitis related to alcohol but has not been drinking corroborated by a negative blood alcohol level here. Gallbladder ultrasound was negative for gallstones and no evidence of biliary obstruction on labs. White blood cell count borderline high. Low bicarb noted but this is a frequent finding with her and she has been much worse with that in the past. No biochemical evidence of pancreatitis, although her lipase is elevated it is not elevated enough to be consistent with that diagnosis. She is feeling much better after meds here. Gastritis could still be causative and would not show up on the testing available to me fla[place] and she will be treated with a PPI pending follow-up. Departure - Departure Disposition: 01 Home, Self Care Clinical Impression: Gastritis Qualifiers: Gastritis type: unspecified gastritis Chronicity: acute Gastritis bleeding: without bleeding Qualified Code(s): K29.00 - Acute gastritis without bleeding Condition: Good Record reviewed to determine appropriate education?: Yes Instructions: ED PUD Vs Gastritis Prescriptions: Omeprazole 40 mg PO DAILY #30 cap Oxycodone HCl/Acetaminophen [Percocet 5-325 mg Tablet] 1 - 2 each PO Q6H PRN #14 tablet PRN Reason: pain Comments: I sent your prescription electronically to the [facility] pharmacy at the corner of [address] and [address] here in [place]. As discussed, really no sign of active pancreatitis. By process of illumination and given the ultrasound showing no gallstones, I suspect to have gastritis. This should be well treated by the antacid medicine we are putting you on. However it still usually takes a few days for the pain to go completely away. Return for new or worsening symptoms or if pain is uncontrolled by the pain medication. Follow-up with your primary care physician, next available appointment for discussion. If symptoms are persistent they may want to refer you for an upper endoscopy. I am prescribing a short course of narcotic pain medication for you. These are potentially dangerous and addictive medications that should be used carefully. These medications may constipate you. Take an nhhi-mnz-oqibmvx stool softener (docusate) twice daily with plenty of water while taking these medications. If you go 24 hours without a bowel movement, take [id number] miralax, per package instructions. Do not drink or drive while taking these medications. If you received narcotic or sedating medications while in the emergency department, do not drive for 24 hours. Store this medication in a safe, secure place and out of reach of children. It is a violation of federal law to give or sell this medication to another [facility] or to use in a manner other than prescribed. The ED will not refill narcotic prescriptions, including prescriptions lost or stolen. To dispose of unwanted medications: 1. [facility] at [address] in [place] has a medication drop box. They accept prescription medications (in pill form) Tuesday through Tuesday 9:00 a.m. to 5:00 p.m. 2. The [facility] Police Department accepts prescription medications (in pill form only) for disposal year round. Call for more information. 3. Contact the [facility] for the next [facility] sponsored prescription drug collection event. , [id number], or [phone]; Note that many narcotic pain relievers also contain Tylenol/acetaminophen. Please ensure that your total dose of acetaminophen from all sources does not exceed 3 g (3000 mg) per day. Discharge Date/Time: 01/01/22 20:20
[2022-01-01 18:23] LABS: BASOPHILS # (AUTO) 0.1 10^3/uL (0.0-0.1); BASOPHILS % (AUTO) 0.8 %; EOSINOPHILS # (AUTO) 0.2 10^3/uL (0.0-0.7); EOSINOPHILS % (AUTO) 1.8 %; HCT - HEMATOCRIT 40.7 % (37.0-47.0); HGB - HEMOGLOBIN 13.9 g/dL (12.0-16.0); LYMPHOCYTES # (AUTO) 3.9 10^3/uL (1.5-3.5); LYMPHOCYTES % (AUTO) 29.1 %; MEAN CORPUSCULAR HGB CONC 34.2 g/dL (32.0-36.0); MEAN CORPUSCULAR VOLUME 87.7 fL (81.0-99.0); MEAN PLATELET VOLUME 9.1 fL (7.9-10.8); MONOCYTES % (AUTO) 7.2 %; NEUTROPHILS # (AUTO) 8.1 10^3/uL (1.5-6.6); NEUTROPHILS % (AUTO) 60.8 %; PLT - PLATELET COUNT 443 10^3/uL (130-450); RED BLOOD COUNT 4.64 10^6/uL (4.20-5.40); RED CELL DISTRIBUTION WIDTH 18.4 % (12.0-15.0); WHITE BLOOD COUNT 13.3 x10^3/uL (4.8-10.8)
[2022-01-01 18:34] LABS: ALBUMIN/GLOBULIN RATIO 1.4 (1.0-2.2); ALKALINE PHOSPHATASE 105 IU/L (42-121); ALT ALANINE AMINOTRANSFERASE 16 IU/L (10-60); AST ASPARTATE AMINOTRANSFERASE 18 IU/L (10-42); BILIRUBIN,TOTAL 0.6 mg/dL (0.2-1.0); BUN - BLOOD UREA NITROGEN 22 mg/dL (6-20); CALCIUM 10.2 mg/dL (8.5-10.3); CARBON DIOXIDE - CO2 14 mmol/L (21-32); CHLORIDE 103 mmol/L (101-111); ETOH - ETHANOL < 5.0 mg/dL; GFR - MDRD 60 (>89); GLUCOSE 108 mg/dL (70-100); LIPASE 56 U/L (22-51); POTASSIUM 3.5 mmol/L (3.5-5.0); SODIUM 132 mmol/L (135-145); TOTAL PROTEIN 8.5 g/dL (6.7-8.2)
[2022-01-01 18:38] LABS: KETONES, SERUM (ACETEST) NEGATIVE (NEGATIVE)
[2022-01-01 18:38] LABS: VBG BASE EXCESS -10.8 mmol/L (-2 - +2); VBG HCO3 13.6 mmol/L (23-28); VBG OXYGEN SATURATION 97.5 % (60-80); VBG PCO2 27.2 mmHg (41-51); VBG PH 7.318 (7.31-7.41); VBG PO2 95.4 mmHg (25-47); VBG TOTAL CO2 14.5 mmol/L (24-29)
[2022-01-01 18:43] LABS: INR 1.2 (0.8-1.2); PT - PROTHROMBIN TIME 13.2 secs (9.9-12.6)
[2022-01-01 19:12] LABS: BILIRUBIN,URINE NEGATIVE (NEGATIVE); GLUCOSE, URINE (UA) NEGATIVE (NEGATIVE); KETONES,URINE (UA) TRACE mg/dL (NEGATIVE); LEUKOCYTE ESTERASE, URINE NEGATIVE (NEGATIVE); NITRITE,URINE NEGATIVE (NEGATIVE); OCCULT BLOOD,URINE NEGATIVE (NEGATIVE); PROTEIN,URINE 30 mg/dL (NEGATIVE); UROBILINOGEN,URINE 0.2 (NORMAL) E.U./dL (NORMAL)
[2022-01-01 19:13] LABS: CLARITY,URINE HAZY (CLEAR); HCG UR QUAL NEGATIVE
[2022-01-01 19:24] LABS: BACTERIA,URINE Few /HPF (None Seen); RBC,URINE 0-5 /HPF (0-5); SQUAMOUS EPITHELIAL CELL,UR MANY Squamous (<= Few)
[2022-01-01 19:25] LABS: CASTS, URINE 3-5 WBC Casts /LPF; MUCUS,URINE Few Strands
--- NOTE | 2022-01-01 19:53 | Ultrasound Report ---
PROCEDURE: Abdomen Limited INDICATIONS: RUQ pain TECHNIQUE: Real-time scanning was performed of the abdominal and retroperitoneal organs, with image documentatio n. COMPARISON: None. FINDINGS: Liver: Liver is normal in size and homogeneous in echotexture. Gallbladder: No stones. Wall thickness is normal measuring 2.3 mm. Biliary ducts: Intrahepatic bile ducts are non-dilated. Extrahepatic bile duct caliber measures 78 mm. Normal is 6-7 mm or less in diameter, or 10 mm or less post-cholecystectomy. Pancreas: Not visualized Kidneys: Right kidney measures 10.2 cm long. No hydronephrosis. Punctate focus of echogenicity is p resent within the right kidney. No solid masses. Aorta: Visualized aorta is normal in caliber at less than 3 cm. Iliacs: Proximal common iliac arteries are normal in caliber at less than 2.5 cm. Miscellaneous: No free abdominal fluid. IMPRESSION: Punctate focus suspicious for nonobstructing calculus in the right kidney. Gallbladder is unremarkable. Reviewed by: Poly Benjamin MD on 01/01/2022 7:52 PM PDT Approved by: Poly Benjamin MD on 01/01/2022 7:52 PM PDT Station ID: [id number]
[2022-01-01] MEDS ORDERED: PANTOPRAZOLE 40 MG VIAL IVP STA (20:01)
[2022-01-01] MEDS ORDERED: oxyCODONE/ACET 5/325 Prepack 4 PO STA (20:01)
[2022-01-01 20:13] VITALS: BP 128/88
== END 2022-01-01 20:20 | disposition home or self-care (01) ==
LOC: ED 17:54
DX: K29.00 Acute gastritis without bleeding (principal); I10 Essential (primary) hypertension; F17.200 Nicotine dependence, unspecified, uncomplicated
CPT/HCPCS: 36415; 76705; 80053; 80320; 81001; 81025; 82009; 82803; 83690; 83735; 85025; 85610; 96374; 96375; 99284; J1170; 81003; 87086

== ENCOUNTER 2022-01-31 23:48 | Emergency (ER) | payer MEDICAID ==
[2022-02-01 00:35] LABS: BASOPHILS # (AUTO) 0.1 10^3/uL (0.0-0.1); BASOPHILS % (AUTO) 0.6 %; EOSINOPHILS # (AUTO) 0.1 10^3/uL (0.0-0.7); EOSINOPHILS % (AUTO) 1.1 %; HCT - HEMATOCRIT 35.1 % (37.0-47.0); HGB - HEMOGLOBIN 12.3 g/dL (12.0-16.0); LYMPHOCYTES # (AUTO) 3.5 10^3/uL (1.5-3.5); LYMPHOCYTES % (AUTO) 35.3 %; MEAN CORPUSCULAR HEMOGLOBIN 30.4 pg (27.0-31.0); MEAN CORPUSCULAR VOLUME 86.7 fL (81.0-99.0); MEAN PLATELET VOLUME 9.3 fL (7.9-10.8); MONOCYTES # (AUTO) 0.6 10^3/uL (0.0-1.0); NEUTROPHILS # (AUTO) 5.6 10^3/uL (1.5-6.6); NEUTROPHILS % (AUTO) 56.8 %; PLT - PLATELET COUNT 400 10^3/uL (130-450); RED BLOOD COUNT 4.05 10^6/uL (4.20-5.40); RED CELL DISTRIBUTION WIDTH 18.6 % (12.0-15.0); WHITE BLOOD COUNT 9.8 x10^3/uL (4.8-10.8)
[2022-02-01 00:49] LABS: ALBUMIN 3.6 g/dL (3.2-5.5); ALBUMIN/GLOBULIN RATIO 1.1 (1.0-2.2); BILIRUBIN,TOTAL 0.9 mg/dL (0.2-1.0); CALCIUM 9.2 mg/dL (8.5-10.3); CREATININE 0.5 mg/dL (0.4-1.0); POTASSIUM 3.1 mmol/L (3.5-5.0)
--- NOTE | 2022-02-01 01:05 | ED Physician Documentation ---
PD HPI ABD PAIN - Chief complaint Chief Complaint: Abd Pain - History obtained from History obtained from: Patient - History of Present Illness Timing - onset: Other (a little over a month ago, per patient) Timing - details: Waxing and waning Pain level now: 8 Improved by: Other (no ameliorating factors) Worsened by: Other (no exacerbating factors) Associated symptoms: Nausea, Vomiting. No: Fever, Hematemesis, Diarrhea, Constipation, Melena, Hematochezia Recently seen: Emergency Dept (T+R for similar symptoms last month) - Additional information Additional information: c/o ongoing abdominal pain, generalized but worst across upper abdomen and periumbilical region. She says the pain has been ongoing for a little over a month ago (per patient), and she was T+R from this ED last month for similar c/o. She says she was evaluated by PMD since previous [facility] ED visit and is waiting to obtain appointment for consult with GI. She says she was told the medication that she was prescribed on previous ED visit would resolve symptoms, but she says she is no better with the rx (PPI). She says she has not had any alcohol for over two months Review of Systems Constitutional: reports: Reviewed and negative Cardiac: reports: Reviewed and negative Respiratory: reports: Reviewed and negative GI: reports: Abdominal Pain, Nausea, Vomiting. 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 - Present Medications Home Medications: Ambulatory Orders Medication Instructions Recorded Confirmed Albuterol Sulfate [Albuterol 2 puffs IH Q4H PRN 05/06/20 11/29/21 Sulfate Hfa] Ibuprofen [Motrin] 800 mg PO DAILY PRN 11/29/21 11/29/21 Pnv No.121/Iron/Folic Acid 1 each PO DAILY #30 tablet 12/01/21 [ Multivitamin Tablet] Thiamine [Vitamin B-1] 100 mg PO DAILY #30 tablet 12/01/21 Omeprazole 40 mg PO DAILY #30 cap 01/01/22 Oxycodone HCl/Acetaminophen 1 - 2 each PO Q6H PRN #14 tablet 01/01/22 [Percocet 5-325 mg Tablet] oxyCODONE [Roxicodone] 5 - 10 mg PO Q6H PRN #14 tablet 02/01/22 - Allergies Allergies/Adverse Reactions: Allergies Allergy/AdvReac Type Severity Reaction Status Date / Time No Known Drug Allergies Allergy Verified 01/31/22 23:51 - Social History Does the pt smoke?: Yes Smoking Status: Current every day smoker Does the pt drink ETOH?: Yes Does the pt have substance abuse?: No - Immunizations Immunizations are current?: Yes Immunizations: TDAP >10years/unknown - POLST Patient has POLST: No POLST Status: Full Code PD ED PE NORMAL - Vitals Vital signs reviewed: Yes - General General: Alert and oriented X 3, No acute distress, Well developed/nourished, Other (asleep when I enter room, slowly wakens to verbal but then AAOx3. NAD during H+P, expresses painful discomfort towards end of this initial evaluation) - HEENT HEENT: Moist mucous membranes - Cardiac Cardiac: RRR, No murmur - Respiratory Respiratory: No respiratory distress, Clear bilaterally - Abdomen Abdomen: Normal bowel sounds, Soft, Non tender, Non distended - Back Back: No CVA TTP - Derm Derm: Normal color, Warm and dry - Extremities Extremities: No edema - 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 Results - Vitals Vitals: Oxygen O2 Source Room air - Labs Labs: Laboratory Tests 01/31/22 01/31/22 02/01/22 00:08 00:08 00:48 WBC 9.8 RBC 4.05 L Hgb 12.3 Hct 35.1 L MCV 86.7 MCH 30.4 MCHC 35.0 RDW 18.6 H Plt Count 400 MPV 9.3 Neut # (Auto) 5.6 Lymph # (Auto) 3.5 [place] # (Auto) 0.6 Eos # (Auto) 0.1 Baso # (Auto) 0.1 Absolute Nucleated RBC 0.00 Nucleated RBC % 0.0 Sodium 140 Potassium 3.1 L Chloride 106 Carbon Dioxide 22 Anion Gap 12.0 BUN 17 Creatinine 0.5 Estimated GFR (MDRD) 134 Glucose 136 H Calcium 9.2 Total Bilirubin 0.9 AST 393 H ALT 136 H Alkaline Phosphatase 348 H Total Protein 7.0 Albumin 3.6 Globulin 3.4 Albumin/Globulin Ratio 1.1 Lipase 46 Urine Color DARK YELLOW Urine Clarity CLEAR Urine pH 6.0 Ur Specific [place] >=1.030 H Urine Protein TRACE Urine Glucose (UA) NEGATIVE Urine Ketones TRACE Urine Occult Blood NEGATIVE Urine Nitrite NEGATIVE Urine Bilirubin NEGATIVE Urine Urobilinogen 0.2 (NORMAL) Ur Leukocyte Esterase NEGATIVE Ur Microscopic Review NOT INDICATED Urine Culture Comments NOT INDICATED Urine HCG, Qual NEGATIVE PD MEDICAL DECISION MAKING - ED course Complexity details: reviewed results, re-evaluated patient, considered differential, d/w patient ED course: Unclear cause of her abdominal pain at this time. She has unremarkable CBC, normal lipase. Her AST, ALT, and alkaline phosphate are all elevated (normal bilirubin) with AST/ALT ratio of 2.9. She denies recent alcohol intake, says she is sober over two months. PUD/gastritis remains high on differential diagnosis. She had similar symptoms last month and, at that time had unremarkable US. No emergent imaging performed on tonights visit. Given maalox, lidocaine PO as well as tramadol for pain. On reevaluation, she reports inadequate relief although she is not in any apparent distress and abdomen is nontender (when distracted). I discussed the results with patient as well as lack of apparent cause of her pain/lack of diagnosis. Most concerning are the abnormal LFTs, which were normal last month but have been elevated (even higher) on previous visits. We discussed acetaminophen intake and she describes taking acetaminophen on a regular, daily basis although adhering to maximum 2gram/day intake. I advised her to stop taking acetaminophen/tylenol (and any acetaminophen-containing products) until she is advised otherwise by her doctor (which would likely be contingent on normalization of LFTs). In regards to pain medication, she says she was told to avoid NSAIDs due to suspected gastritis. She reports no improvement with tramadol. She is given percocet take-home pack (recognizing that this is an acetaminophen-containing product but there are no alternative take-home medications without acetaminophen), and oxycodone rx e-prescribed to her pharmacy of choice. Her REYMUNDO form does not reflect a concerning rx-fill pattern. Return precautions discussed and I encouraged her to continue to pursue outpatient follow up, particularly with a gun stock maker. I am prescribing a short course of short-acting opioid pain medication for this patient. 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 I have discussed that the opioids are for short term therapy only, and will not be refilled from the ED Departure - Departure Disposition: Home, Self Care Clinical Impression: Transaminitis Condition: Good Instructions: ED Abdominal Pain Female Non-Specific Abdominal Pain Follow-Up: Shelia Barajas ARNP [Primary Care Provider] - (Call to arrange for next available appointment) Prescriptions: oxyCODONE [Roxicodone] 5 - 10 mg PO Q6H PRN #14 tablet PRN Reason: Abdominal Pain Comments: Your liver function tests are abnormal tonight. You have had similar abnormalities in the past, although not consistently (these tests were normal on your ER visit last month, but they were higher/more abnormal when you were admitted in 2019). The cause of this is not apparent at this time, but you might need other tests to look further into the problem and thus I recommend you contact your primary care provider to arrange for next available appointment for reevaluation. As we discussed, I recommend avoiding tylenol/acetaminophen until you are told it is safe to do so by your doctor. A prescription for oxycodone (narcotic pain medication) has been electronically submitted to [facility] pharmacy in [place] (the [facility] pharmacy is closed today due to but [facility] opens at 10 AM). I am prescribing a short course of narcotic pain medication for you. These are potentially dangerous and addictive medications that should be used carefully. These medications may constipate you. Take an yopp-bew-jgxnyqy stool softener (docusate) twice daily with plenty of water while taking these medications. If you go 24 hours without a bowel movement, take [id number]-svqfrmf miralax, per p porsche instructions. Do not drink or drive while taking these medications. If you received narcotic or sedating medications while in the emergency department, do not drive for 24 hours. Store this medication in a safe, secure place and out of reach of children. It is a violation of federal law to give or sell this medication to another person or to use in a manner other than prescribed. The ED will not refill narcotic prescriptions, including prescriptions lost or stolen. To dispose of unwanted medications: 1. [facility] at [address] in [place] has a medication drop box. They accept prescription medications (in pill form) Tuesday through Tuesday 9:00 a.m. to 5:00 p.m. 2. The [facility] Police Department accepts prescription medications (in pill form only) for disposal year round. Call for more information. 3. Contact the [facility] for the next [facility] sponsored prescription drug collection event. , [phone], or [phone]; Discharge Date/Time: 02/01/22 03:08
[2022-02-01 01:19] LABS: GLUCOSE, URINE (UA) NEGATIVE (NEGATIVE); KETONES,URINE (UA) TRACE mg/dL (NEGATIVE); LEUKOCYTE ESTERASE, URINE NEGATIVE (NEGATIVE); NITRITE,URINE NEGATIVE (NEGATIVE); OCCULT BLOOD,URINE NEGATIVE (NEGATIVE); PROTEIN,URINE TRACE mg/dL (NEGATIVE); UROBILINOGEN,URINE 0.2 (NORMAL) E.U./dL (NORMAL)
[2022-02-01 01:20] LABS: CLARITY,URINE CLEAR (CLEAR)
[2022-02-01 01:24] LABS: BILIRUBIN,URINE NEGATIVE (NEGATIVE); HCG UR QUAL NEGATIVE; ICTOTEST,URINE NEGATIVE
[2022-02-01] MEDS ORDERED: LIDOCAINE VISCOUS 2% 15 ML UDC MM STA (01:28)
[2022-02-01] MEDS ORDERED: MAG HYDROX/AL HYDROX/SIMETH 30 ML UDC PO STA (01:28)
[2022-02-01] MEDS ORDERED: SODIUM CHLORIDE 0.9% 1,000 ML IV STA (01:29)
[2022-02-01] MEDS ORDERED: traMADol 50 MG TABLET PO STA (01:29)
[2022-02-01] MEDS ORDERED: oxyCODONE/ACET 5/325 Prepack 4 PO STA (02:49)
[2022-02-01 03:08] VITALS: BP 145/104
== END 2022-02-01 03:08 | disposition home or self-care (01) ==
LOC: ED 23:48
DX: R74.02 Elevation of levels of lactic acid dehydrogenase [LDH] (principal); I10 Essential (primary) hypertension; F17.200 Nicotine dependence, unspecified, uncomplicated
CPT/HCPCS: 36415; 80053; 81003; 81025; 83690; 85025; 99283; A9270; 81001; 87086

== ENCOUNTER 2022-02-16 20:03 | Emergency (ER) | payer MEDICAID ==
[2022-02-16 21:03] LABS: BASOPHILS # (AUTO) 0.1 10^3/uL (0.0-0.1); BASOPHILS % (AUTO) 0.8 %; EOSINOPHILS # (AUTO) 0.3 10^3/uL (0.0-0.7); EOSINOPHILS % (AUTO) 3.4 %; HCT - HEMATOCRIT 35.1 % (37.0-47.0); HGB - HEMOGLOBIN 11.9 g/dL (12.0-16.0); LYMPHOCYTES # (AUTO) 3.2 10^3/uL (1.5-3.5); LYMPHOCYTES % (AUTO) 36.9 %; MEAN CORPUSCULAR HGB CONC 33.9 g/dL (32.0-36.0); MEAN CORPUSCULAR VOLUME 88.4 fL (81.0-99.0); MEAN PLATELET VOLUME 8.9 fL (7.9-10.8); MONOCYTES # (AUTO) 0.5 10^3/uL (0.0-1.0); MONOCYTES % (AUTO) 6.3 %; NEUTROPHILS # (AUTO) 4.5 10^3/uL (1.5-6.6); NEUTROPHILS % (AUTO) 52.4 %; PLT - PLATELET COUNT 411 10^3/uL (130-450); RED BLOOD COUNT 3.97 10^6/uL (4.20-5.40); RED CELL DISTRIBUTION WIDTH 18.2 % (12.0-15.0); WHITE BLOOD COUNT 8.5 x10^3/uL (4.8-10.8)
[2022-02-16 21:15] LABS: ALBUMIN 3.6 g/dL (3.2-5.5); ALBUMIN/GLOBULIN RATIO 1.1 (1.0-2.2); BILIRUBIN,TOTAL 0.7 mg/dL (0.2-1.0); CALCIUM 9.1 mg/dL (8.5-10.3); CREATININE 0.6 mg/dL (0.4-1.0); POTASSIUM 2.8 mmol/L (3.5-5.0); TOTAL PROTEIN 6.9 g/dL (6.7-8.2)
[2022-02-16 21:47] LABS: BILIRUBIN,URINE NEGATIVE (NEGATIVE); GLUCOSE, URINE (UA) NEGATIVE (NEGATIVE); KETONES,URINE (UA) NEGATIVE (NEGATIVE); LEUKOCYTE ESTERASE, URINE NEGATIVE (NEGATIVE); NITRITE,URINE NEGATIVE (NEGATIVE); OCCULT BLOOD,URINE NEGATIVE (NEGATIVE); PH,URINE 5.5 PH (5.0-7.5); PROTEIN,URINE TRACE mg/dL (NEGATIVE); UROBILINOGEN,URINE 0.2 (NORMAL) E.U./dL (NORMAL)
[2022-02-16 21:50] LABS: CLARITY,URINE CLEAR (CLEAR); HCG UR QUAL NEGATIVE
[2022-02-16] MEDS ORDERED: HYDROmorphone 1 MG/ML CARPUJECT IVP STA (22:10)
[2022-02-16] MEDS ORDERED: ONDANSETRON 4 MG/2 ML VIAL IVP STA (22:10)
[2022-02-16] MEDS ORDERED: POTASSIUM CHLORIDE 20 MEQ/15 ML UDC PO STA (22:10)
[2022-02-16] MEDS ORDERED: SODIUM CHLORIDE 0.9% 1,000 ML IV STA (22:10)
[2022-02-16] MEDS ORDERED: POTASSIUM CHLOR 10 MEQ/100 ML 10 MEQ/100 ML BAG IV ONE (22:10)
[2022-02-16] MEDS ORDERED: THIAMINE INJ 100 MG, MAGNESIUM SULFATE 2 GM, MULTIVITAMIN 10 ML, FOLIC ACID INJ 1 MG in... IV ONE ×5 (23:13)
[2022-02-16] MEDS ORDERED: FOLIC ACID 5 MG/1 ML 10ML MDV ONE (23:32)
[2022-02-16] MEDS ORDERED: MAGNESIUM SULFATE 1 GM/2 ML VIAL ONE (23:32)
[2022-02-16] MEDS ORDERED: MULTIVITAMIN IV 10 ML VIAL ONE (23:32)
[2022-02-16] MEDS ORDERED: THIAMINE 100 MG/1 ML 2 ML MDV ONE (23:32)
[2022-02-17] MEDS ORDERED: HYDROmorphone 1 MG/ML CARPUJECT IVP STA (00:06)
--- NOTE | 2022-02-17 01:14 | ED Physician Documentation ---
PD HPI ABD PAIN - Stated complaint Stated Complaint: ABD AND BACK PX - Chief complaint Chief Complaint: Abd Pain - History obtained from History obtained from: Patient - History of Present Illness Timing - onset: Chronic Timing - duration: Days (2) Timing - details: Gradual onset, Still present Quality: Cramping, Sharp, Pain Location: RUQ Radiation: Other (periumbilical) Improved by: Laying still Worsened by: Moving, Position, Palpation Associated symptoms: Nausea Similar symptoms before: Diagnosis (chronic abdominal pain with fatty infiltrate of the liver.) Recently seen: Emergency Dept - Additional information Additional information: 46 y/o female with a history of alcoholism has been without alcohol (except 2 times) in the past 3 months. She has abdominal pain and she has been seen for this about once per month here in the ED. She has an appointment to see GI and she has an appointment for a HIDA scan in 2 days. Review of Systems Constitutional: denies: Fever Eyes: denies: Decreased vision Ears: denies: Ear pain Nose: denies: Congestion Throat: denies: Sore throat Cardiac: denies: Chest pain / pressure, Palpitations Respiratory: denies: Dyspnea, Cough GI: reports: Abdominal Pain, Nausea : denies: Dysuria, Frequency Skin: denies: Rash Musculoskeletal: denies: Neck pain, Back pain, Extremity pain Neurologic: denies: Generalized weakness, Focal weakness, Numbness PD PAST MEDICAL HISTORY - Past Medical History Past Medical History: Yes Cardiovascular: Hypertension Respiratory: None Neuro: Migraines Endocrine/Autoimmune: None GI: Pancreatitis 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, 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), Other : None HEENT: Other Psych: Depression, Anxiety Musculoskeletal: Chronic back pain, Other Derm: None - Past Surgical History Past Surgical History: Yes /SALES OPERATIONS ASSISTANT: Other - Present Medications Home Medications: Ambulatory Orders Medication Instructions Recorded Confirmed Albuterol Sulfate [Albuterol 2 puffs IH Q4H PRN 05/06/20 11/29/21 Sulfate Hfa] Ibuprofen [Motrin] 800 mg PO DAILY PRN 11/29/21 11/29/21 Pnv No.121/Iron/Folic Acid 1 each PO DAILY #30 tablet 12/01/21 [ Multivitamin Tablet] Thiamine [Vitamin B-1] 100 mg PO DAILY #30 tablet 12/01/21 Omeprazole 40 mg PO DAILY #30 cap 01/01/22 Oxycodone HCl/Acetaminophen 1 - 2 each PO Q6H PRN #14 tablet 01/01/22 [Percocet 5-325 mg Tablet] oxyCODONE [Roxicodone] 5 - 10 mg PO Q6H PRN #14 tablet 02/01/22 Oxycodone HCl/Acetaminophen 1 - 2 each PO Q6H PRN #14 tablet 02/17/22 [Percocet 5-325 mg Tablet] - Allergies Allergies/Adverse Reactions: Allergies Allergy/AdvReac Type Severity Reaction Status Date / Time No Known Drug Allergies Allergy Verified 02/16/22 20:21 - Social History Does the pt smoke?: Yes Smoking Status: Current every day smoker Does the pt drink ETOH?: Yes Does the pt have substance abuse?: No - Immunizations Immunizations are current?: Yes Immunizations: TDAP >10years/unknown - POLST Patient has POLST: No POLST Status: Full Code PD ED PE NORMAL - Vitals Vital signs reviewed: Yes (hypertensive mild ) - General General: Alert and oriented X 3, No acute distress, Well developed/nourished - HEENT HEENT: Atraumatic, PERRL, EOMI - Neck Neck: Supple, no meningeal sign, No bony TTP - Cardiac Cardiac: RRR, No murmur - Respiratory Respiratory: No respiratory distress, Clear bilaterally - Abdomen Abdomen: Normal bowel sounds, Soft, Non distended, Other (mild general tenderness without garding or rebound. ) - Back Back: No CVA TTP, No spinal TTP - Derm Derm: Normal color, Warm and dry, No rash - Extremities Extremities: No deformity, No edema - 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, ground worker 2-12 intact, No motor deficit, No sensory deficit, Normal speech Eye Opening: Spontaneous Motor: Obeys Commands Verbal: Oriented GCS Score: 15 - Psych Psych: Normal mood, Normal affect Results - Vitals Vitals: Vital Signs - 24 hr 02/16/22 02/16/22 02/16/22 20:16 20:20 22:20 Temperature 36.3 C L 36.3 C L Heart Rate 87 87 77 Respiratory 16 16 13 Rate Blood Pressure 124/88 H 124/88 H 144/95 H O2 Saturation 98 98 100 02/17/22 02/17/22 02/17/22 00:00 00:55 01:44 Temperature Heart Rate 77 63 63 Respiratory 13 17 16 Rate Blood Pressure 144/95 H 164/113 H 154/102 H O2 Saturation 100 99 100 Oxygen O2 Source Room air - Labs Labs: Laboratory Tests 02/16/22 02/16/22 02/16/22 20:56 20:56 21:42 WBC 8.5 RBC 3.97 L Hgb 11.9 L Hct 35.1 L MCV 88.4 MCH 30.0 MCHC 33.9 RDW 18.2 H Plt Count 411 MPV 8.9 Neut # (Auto) 4.5 Lymph # (Auto) 3.2 [place] # (Auto) 0.5 Eos # (Auto) 0.3 Baso # (Auto) 0.1 Absolute Nucleated RBC 0.00 Nucleated RBC % 0.0 Sodium 139 Potassium 2.8 L Chloride 103 Carbon Dioxide 25 Anion Gap 11.0 BUN 11 Creatinine 0.6 Estimated GFR (MDRD) 109 Glucose 128 H Calcium 9.1 Total Bilirubin 0.7 AST 88 H ALT 85 H Alkaline Phosphatase 258 H Total Protein 6.9 Albumin 3.6 Globulin 3.3 Albumin/Globulin Ratio 1.1 Lipase 61 H Urine Color YELLOW Urine Clarity CLEAR Urine pH 5.5 Ur Specific [place] >=1.030 H Urine Protein TRACE Urine Glucose (UA) NEGATIVE Urine Ketones NEGATIVE Urine Occult Blood NEGATIVE Urine Nitrite NEGATIVE Urine Bilirubin NEGATIVE Urine Urobilinogen 0.2 (NORMAL) Ur Leukocyte Esterase NEGATIVE Ur Microscopic Review NOT INDICATED Urine Culture Comments NOT INDICATED Urine HCG, Qual NEGATIVE Ethyl Alcohol 02/17/22 00:15 WBC RBC Hgb Hct MCV MCH MCHC RDW Plt Count MPV Neut # (Auto) Lymph # (Auto) [place] # (Auto) Eos # (Auto) Baso # (Auto) Absolute Nucleated RBC Nucleated RBC % Sodium Potassium Chloride Carbon Dioxide Anion Gap BUN Creatinine Estimated GFR (MDRD) Glucose Calcium Total Bilirubin AST ALT Alkaline Phosphatase Total Protein Albumin Globulin Albumin/Globulin Ratio Lipase Urine Color Urine Clarity Urine pH Ur Specific [place] Urine Protein Urine Glucose (UA) Urine Ketones Urine Occult Blood Urine Nitrite Urine Bilirubin Urine Urobilinogen Ur Leukocyte Esterase Ur Microscopic Review Urine Culture Comments Urine HCG, Qual Ethyl Alcohol < 5.0 PD MEDICAL DECISION MAKING - ED course Complexity details: reviewed old records, reviewed results, re-evaluated patient, considered differential, d/w patient ED course: 46-year-old female with fatty infiltrated liver history of alcoholism has chronic abdominal pain and she has quite a large liver on CT scan. I wonder even if her abdominal pain is related to the suspensory ligaments of the liver. She indicates that certain ways that she rolls and moves will increase the pain. Tonight she is having significant pain and comes to the emergency department for treatment. She does have an appointment for a HIDA scan in 2 days time. She has an appointment for GI specialist as well. She is prescribed a small amount of pain medication. She is found to be dehydrated and have a low potassium. Here in the emergency department she is administered a banana bag intravenously as well as IV and oral potassium. Departure - Departure Disposition: Home, Self Care Clinical Impression: Dehydration, Hypokalemia, Chronic abdominal pain Condition: Stable Instructions: Diet High Potassium Dc, ED Abdominal Pain Female Non-Specific Abdominal Pain, ED Dehydration Follow-Up: Shelia Barajas ARNP [Primary Care Provider] - Prescriptions: Oxycodone HCl/Acetaminophen [Percocet 5-325 mg Tablet] 1 - 2 each PO Q6H PRN #14 tablet PRN Reason: pain Comments: Jerica, today it looks like you are a bit dehydrated and had a low potassium. We have provided some potassium but you will need to to have a diet high in potassium. Continue your current medications and follow-up with your primary care doctor as planned. Discharge Date/Time: 02/17/22 01:49
[2022-02-17 01:46] VITALS: BP 154/102
== END 2022-02-17 01:49 | disposition home or self-care (01) ==
LOC: ED 20:03
DX: R10.11 Right upper quadrant pain (principal); G89.29 Other chronic pain; I10 Essential (primary) hypertension; F17.200 Nicotine dependence, unspecified, uncomplicated; E86.0 Dehydration; E87.6 Hypokalemia
CPT/HCPCS: 36415; 80053; 80320; 81003; 81025; 83690; 85025; 96365; 96366; 96368; 96375; 96376; 99284; 99285; A9270; J1170; J3411; 81001; 87086

== ENCOUNTER 2022-02-18 08:48 | Outpatient (CLI) | payer MEDICAID ==
--- NOTE | 2022-02-18 14:11 | Nuclear Medicine Report ---
PROCEDURE: Hepatobiliary HIDA w/ Rx INDICATIONS: ABD PAIN RADIOPHARMACEUTICAL: 5.5 mCi Tc-99m meprofenin i.v. and 1.1 g sincalide i.v. TECHNIQUE: Following intravenous administration of Tc-99m meprofenin, sequential anterior abdominal images were obtained through 60 minutes. To evaluate the contractile response of the gallbladder in response to Cholecystokinin (CCK), 1.1 microgram sincalide (0.02 g/kg) was administered by slow intr avenous infusion approximately 60 minutes after the administration of the radiopharmaceutical. Seque ntial imaging was continued for 30 minutes after the start of CCK infusion. Gallbladder ejection fra ction was calculated. COMPARISON: None. FINDINGS: Biliary scan: There is normal tracer uptake and excretion by the liver. There is normal visualizati on of the intrahepatic ducts, common bile duct, and gallbladder. There is normal tracer transit into the duodenum. CCK stimulation: There is poor contractile response of the gallbladder to CCK infusion. The calcula yamilex gallbladder ejection fraction is 24%; normal values are above 35%. IMPRESSION: 1. Normal filling of gallbladder. No findings to suggest acute cholecystitis. 2. Poor contractile response of gallbladder to CCK infusion, consistent with cooperative dyskinesia. Reviewed by: Rui Wesley MD on 02/18/2022 2:10 PM PDT Approved by: Rui Wesley MD on 02/18/2022 2:10 PM PDT Station ID: [id number]
[2022-02-18] MEDS ORDERED: SINCALIDE 1.2 MCG in SODIUM CHLORIDE 0.9% 50 ML IV ONE (14:28)
== END 2022-02-18 08:49 | disposition home or self-care (01) ==
LOC: DI 08:48
PROVIDERS: ATTEND Physician Assistant Medical
DX: R10.10 Upper abdominal pain, unspecified (principal)
CPT/HCPCS: 78227; J7040

== ENCOUNTER 2022-02-25 08:34 | Outpatient (CLI) | payer MEDICAID ==
[2022-02-25 08:54] LABS: BASOPHILS # (AUTO) 0.1 10^3/uL (0.0-0.1); BASOPHILS % (AUTO) 0.8 %; EOSINOPHILS # (AUTO) 0.2 10^3/uL (0.0-0.7); EOSINOPHILS % (AUTO) 2.5 %; HCT - HEMATOCRIT 35.9 % (37.0-47.0); LYMPHOCYTES % (AUTO) 25.2 %; MEAN CORPUSCULAR HEMOGLOBIN 30.4 pg (27.0-31.0); MEAN CORPUSCULAR HGB CONC 33.4 g/dL (32.0-36.0); MEAN CORPUSCULAR VOLUME 90.9 fL (81.0-99.0); MEAN PLATELET VOLUME 8.9 fL (7.9-10.8); MONOCYTES # (AUTO) 0.5 10^3/uL (0.0-1.0); MONOCYTES % (AUTO) 5.7 %; NEUTROPHILS # (AUTO) 5.2 10^3/uL (1.5-6.6); NEUTROPHILS % (AUTO) 65.5 %; PLT - PLATELET COUNT 451 10^3/uL (130-450); RED BLOOD COUNT 3.95 10^6/uL (4.20-5.40); RED CELL DISTRIBUTION WIDTH 19.7 % (12.0-15.0); WHITE BLOOD COUNT 7.9 x10^3/uL (4.8-10.8)
[2022-02-25 09:08] LABS: ALBUMIN 3.6 g/dL (3.2-5.5); BILIRUBIN,TOTAL 0.6 mg/dL (0.2-1.0); CALCIUM 9.3 mg/dL (8.5-10.3); CREATININE 0.6 mg/dL (0.4-1.0); POTASSIUM 3.3 mmol/L (3.5-5.0); TOTAL PROTEIN 7.1 g/dL (6.7-8.2)
[2022-02-25 09:09] LABS: INR 1.1 (0.8-1.2); PT - PROTHROMBIN TIME 12.7 secs (9.9-12.6)
[2022-02-26 06:10] LABS: HBsAG SCREEN Negative (Negative); HCV AB <0.1 s/co ratio (0.0-0.9)
== END 2022-02-25 08:35 | disposition home or self-care (01) ==
LOC: LAB 08:34
PROVIDERS: ATTEND Nurse Practitioner
DX: R10.31 Right lower quadrant pain (principal); R10.11 Right upper quadrant pain
CPT/HCPCS: 36415; 80053; 82150; 83690; 85025; 85610; 86709; 86803; 87340

== ENCOUNTER 2022-03-09 15:11 | Outpatient (CLI) | payer MEDICAID | END 2022-03-09 15:12 | disposition home or self-care (01) | LOC: LAB 15:11 | PROVIDERS: ATTEND Physician Assistant | DX: Z01.812 Encounter for preprocedural laboratory examination (principal); Z20.822 Contact with and (suspected) exposure to COVID-19 ==

== ENCOUNTER 2022-03-28 10:00 | Emergency (ER) | payer MEDICAID ==
[2022-03-28] MEDS ORDERED: ONDANSETRON ODT 4 MG TABLET TL STA (10:13)
[2022-03-28 10:23] LABS: BASOPHILS # (AUTO) 0.1 10^3/uL (0.0-0.1); BASOPHILS % (AUTO) 0.9 %; EOSINOPHILS # (AUTO) 0.2 10^3/uL (0.0-0.7); EOSINOPHILS % (AUTO) 2.5 %; HGB - HEMOGLOBIN 11.8 g/dL (12.0-16.0); LYMPHOCYTES % (AUTO) 30.9 %; MEAN CORPUSCULAR HEMOGLOBIN 33.2 pg (27.0-31.0); MEAN CORPUSCULAR HGB CONC 35.8 g/dL (32.0-36.0); MEAN PLATELET VOLUME 8.4 fL (7.9-10.8); MONOCYTES # (AUTO) 0.5 10^3/uL (0.0-1.0); MONOCYTES % (AUTO) 5.5 %; NEUTROPHILS # (AUTO) 5.7 10^3/uL (1.5-6.6); NEUTROPHILS % (AUTO) 59.8 %; PLT - PLATELET COUNT 518 10^3/uL (130-450); RED BLOOD COUNT 3.55 10^6/uL (4.20-5.40); RED CELL DISTRIBUTION WIDTH 19.6 % (12.0-15.0); WHITE BLOOD COUNT 9.6 x10^3/uL (4.8-10.8)
[2022-03-28 10:37] LABS: ALBUMIN/GLOBULIN RATIO 0.9 (1.0-2.2); BILIRUBIN,TOTAL 0.4 mg/dL (0.2-1.0); CALCIUM 9.4 mg/dL (8.5-10.3); CREATININE 0.4 mg/dL (0.4-1.0); POTASSIUM 3.5 mmol/L (3.5-5.0); TOTAL PROTEIN 6.2 g/dL (6.7-8.2)
[2022-03-28 11:22] LABS: BILIRUBIN,URINE NEGATIVE (NEGATIVE); GLUCOSE, URINE (UA) NEGATIVE (NEGATIVE); KETONES,URINE (UA) NEGATIVE (NEGATIVE); LEUKOCYTE ESTERASE, URINE NEGATIVE (NEGATIVE); NITRITE,URINE NEGATIVE (NEGATIVE); OCCULT BLOOD,URINE MODERATE (NEGATIVE); PROTEIN,URINE NEGATIVE (NEGATIVE); UROBILINOGEN,URINE 0.2 (NORMAL) E.U./dL (NORMAL)
[2022-03-28 11:23] LABS: CLARITY,URINE CLEAR (CLEAR); HCG UR QUAL NEGATIVE
[2022-03-28 11:30] LABS: RBC,URINE 0-5 /HPF (0-5); SQUAMOUS EPITHELIAL CELL,UR MOD Squamous (<= Few); WBC,URINE 0-3 /HPF (0-5)
[2022-03-28 11:31] LABS: BACTERIA,URINE Few /HPF (None Seen)
[2022-03-28] MEDS ORDERED: HYDROmorphone 1 MG/ML CARPUJECT IM STA (13:13)
--- NOTE | 2022-03-28 13:17 | ED Physician Documentation ---
PD HPI ABD PAIN - Stated complaint Stated Complaint: STOMACH PAIN - Chief complaint Chief Complaint: Abd Pain - History obtained from History obtained from: Patient - History of Present Illness Timing - onset: How many months ago (3) Timing - duration: Months (3) Timing - details: Gradual onset Pain level max: 7 Pain level now: 6 Quality: Aching, Pain Location: RUQ Radiation: No: Chest, , Lower back, Left flank, Left shoulder, Right flank, Right shoulder, Upper back Associated symptoms: No: Fever, Nausea, Vomiting, Hematemesis, Diarrhea, Constipation, Melena, Hematochezia, Dysuria, Hematuria - Additional information Additional information: 46-year-old female with a history of alcoholism and cirrhosis presents with continued right upper quadrant abdominal pain. Ongoing for several months. She states that her last alcohol intake was about 4 months ago. She states that her doctor tried referring her to palliative care, but they state that they do not have the staff to care for her. Patient states she has had continued pain. Her doctor is trying to prescribe her tramadol but it is stuck in a preauthorization process. Nothing makes it better or worse. No fevers. No vomiting. No diarrhea or constipation. Pain is always in the same spot. She has been worked up several times for this in the past. 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, 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), Other : None HEENT: Other Psych: Depression, Anxiety Musculoskeletal: Chronic back pain, Other Derm: None - Past Surgical History Past Surgical History: Yes /MARKETING ADMINISTRATIVE ASSISTANT: Other - Present Medications Home Medications: Ambulatory Orders Medication Instructions Recorded Confirmed Albuterol Sulfate [Albuterol 2 puffs IH Q4H PRN 05/06/20 11/29/21 Sulfate Hfa] Ibuprofen [Motrin] 800 mg PO DAILY PRN 11/29/21 11/29/21 Pnv No.121/Iron/Folic Acid 1 each PO DAILY #30 tablet 12/01/21 [ Multivitamin Tablet] Thiamine [Vitamin B-1] 100 mg PO DAILY #30 tablet 12/01/21 Omeprazole 40 mg PO DAILY #30 cap 01/01/22 Oxycodone HCl/Acetaminophen 1 - 2 each PO Q6H PRN #14 tablet 01/01/22 [Percocet 5-325 mg Tablet] oxyCODONE [Roxicodone] 5 - 10 mg PO Q6H PRN #14 tablet 02/01/22 Oxycodone HCl/Acetaminophen 1 - 2 each PO Q6H PRN #14 tablet 02/17/22 [Percocet 5-325 mg Tablet] Oxycodone HCl [Roxicodone] 5 - 10 mg PO Q6H PRN #14 tablet 02/27/22 Oxycodone HCl [Roxicodone] 5 mg PO Q6H PRN #14 tablet 03/28/22 - Allergies Allergies/Adverse Reactions: Allergies Allergy/AdvReac Type Severity Reaction Status Date / Time No Known Drug Allergies Allergy Verified 03/28/22 10:11 - Social History Does the pt smoke?: Yes Smoking Status: Current every day smoker Does the pt drink ETOH?: Yes Does the pt have substance abuse?: No - Immunizations Immunizations are current?: Yes Immunizations: TDAP >10years/unknown - POLST Patient has POLST: No POLST Status: Full Code PD ED PE NORMAL - Vitals Vital signs reviewed: Yes - General General: Alert and oriented X 3, No acute distress - HEENT HEENT: Moist mucous membranes - Cardiac Cardiac: RRR, Strong equal pulses - Respiratory Respiratory: No respiratory distress, Clear bilaterally - Abdomen Abdomen: Soft, Non tender, Non distended - Back Back: No CVA TTP - Derm Derm: Warm and dry - Extremities Extremities: No edema - 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 - Psych Psych: Normal mood, Normal affect Results - Vitals Vitals: Vital Signs - 24 hr 03/28/22 03/28/22 10:11 13:37 Temperature 36.8 C 37.0 C Heart Rate 97 82 Respiratory 18 16 Rate Blood Pressure 119/88 H 141/100 H O2 Saturation 98 98 Oxygen O2 Source Room air - Labs Labs: Laboratory Tests 03/28/22 03/28/22 03/28/22 10:20 10:20 11:15 WBC 9.6 RBC 3.55 L Hgb 11.8 L Hct 33.0 L MCV 93.0 MCH 33.2 H MCHC 35.8 RDW 19.6 H Plt Count 518 H MPV 8.4 Neut # (Auto) 5.7 Lymph # (Auto) 3.0 [place] # (Auto) 0.5 Eos # (Auto) 0.2 Baso # (Auto) 0.1 Absolute Nucleated RBC 0.00 Nucleated RBC % 0.0 Sodium 140 Potassium 3.5 Chloride 106 Carbon Dioxide 23 Anion Gap 11.0 BUN 11 Creatinine 0.4 Estimated GFR (MDRD) 173 Glucose 143 H Calcium 9.4 Total Bilirubin 0.4 AST 29 ALT 26 Alkaline Phosphatase 147 H Total Protein 6.2 L Albumin 3.0 L Globulin 3.2 Albumin/Globulin Ratio 0.9 L Lipase 40 Urine Color YELLOW Urine Clarity CLEAR Urine pH 6.0 Ur Specific [place] >=1.030 H Urine Protein NEGATIVE Urine Glucose (UA) NEGATIVE Urine Ketones NEGATIVE Urine Occult Blood MODERATE H Urine Nitrite NEGATIVE Urine Bilirubin NEGATIVE Urine Urobilinogen 0.2 (NORMAL) Ur Leukocyte Esterase NEGATIVE Urine RBC 0-5 Urine WBC 0-3 Ur Squamous Epith Cells MOD Squamous H Urine Bacteria Few Ur Microscopic Review INDICATED Urine Culture Comments NOT INDICATED Urine HCG, Qual NEGATIVE PD MEDICAL DECISION MAKING - ED course Complexity details: reviewed results, re-evaluated patient, considered differential, d/w patient ED course: Patient has chronic ongoing abdominal pain, has had been through multiple negative work-ups. No cause found. Laboratory testing does not show any acute abnormalities. Will prescribe a small amount of pain medication and have her follow-up with her doctor. Patient was informed that we will no longer be able to prescribe narcotic pain medication through this emergency department for her chronic abd pain. Patient counseled that she needs to work closely with her doctor to establish a care plan for her pain. Patient counseled regarding signs and symptoms for which I believe and urgent re-evaluation would be necessary. Patient with good understanding of and agreement to plan and is comfortable going home at this time This document was made in part using voice recognition software. While efforts are made to proofread this document, sound alike and grammatical errors may occur. Departure - Departure Disposition: 01 Home, Self Care Clinical Impression: Abdominal pain Qualifiers: Abdominal location: unspecified location Qualified Code(s): R10.9 - Unspecified abdominal pain Condition: Good Instructions: ED Abdominal Pain Female Non-Specific Abdominal Pain Follow-Up: Your,doctor in 1 week [Other] Prescriptions: Oxycodone HCl [Roxicodone] 5 mg PO Q6H PRN #14 tablet PRN Reason: Pain Comments: Your prescription was sent to [facility] in [place]. Please follow-up with your doctor for further care. We will be unable to prescribe any more narcotics from the emergency department for this issue. I am prescribing a short course of narcotic pain medication for you. These are potentially dangerous and addictive medications that should be used carefully. These medications may constipate you. Take an trca-mgc-[id number] stool softener (docusate) twice daily with plenty of water while taking these medications. If you go 24 hours without a bowel movement, take [id number]-erflarg miralax, per package instructions. Do not drink or drive while taking these medications. If you received narcotic or sedating medications while in the emergency department, do not drive for 24 hours. Store this medication in a safe, secure place and out of reach of children. It is a violation of federal law to give or sell this medication to another person or to use in a manner other than prescribed. The ED will not refill narcotic prescriptions, including prescriptions lost or stolen. To dispose of unwanted medications: 1. [facility] at [address] in [place] has a medication drop box. They accept prescription medications (in pill form) Tuesday through Tuesday 9:00 a.m. to 5:00 p.m. 2. [facility] accepts prescription medications (in pill form only) for disposal year round. Call for more information. 3. Contact the [facility] for the next [facility] sponsored prescription drug collection event. , [phone], or [phone]; Discharge Date/Time: 03/28/22 13:37
[2022-03-28 13:38] VITALS: BP 141/100
== END 2022-03-28 13:37 | disposition home or self-care (01) ==
LOC: ED 10:00
DX: R10.11 Right upper quadrant pain (principal); I10 Essential (primary) hypertension; F17.200 Nicotine dependence, unspecified, uncomplicated
CPT/HCPCS: 36415; 80053; 81001; 81025; 83690; 85025; 96372; 99283; 99284; J1170; Q0162; 81003; 87086

== ENCOUNTER 2022-04-02 08:57 | Outpatient (CLI) | payer MEDICAID ==
--- NOTE | 2022-04-02 13:21 | Ultrasound Report ---
PROCEDURE: Abdomen Complete INDICATIONS: RUQ ABD PAIN TECHNIQUE: Real-time scanning was performed of the abdominal and retroperitoneal organs, with image documentatio n. COMPARISON: CT 12/12/2020, ultrasound 01/01/2022, HIDA scan 02/18/2022 FINDINGS: Liver: 13.6 cm. Echogenic. Gallbladder: Distended at 10.3 cm. Wall thickness is 2.2 mm. Biliary ductal dilation with CBD measuring 12.2 mm and CHD measuring 4 mm. Intrahepatic dilation is s een. Pancreatic duct is dilated at 10 mm. The parenchyma is heterogeneous. Spleen measures 9.5 cm, within normal limits. Kidneys: No hydronephrosis. Suspected bilateral small calculi. The right kidney measures 11.1 cm. The left kidney measures 11.3 cm. Normal cortical thickness. No abdominal aortic aneurysm. Normal diameter of the common iliac arteries. The IVC is patent. No pathologic free fluid. IMPRESSION: Increased biliary ductal dilation. Newly apparent pancreatic ductal dilation with heterogeneous pancr eatic parenchyma. Further evaluation with MRI abdomen/MRCP is recommended. Hepatic steatosis. Distended gallbladder. February 2022 HIDA scan was negative at the time for cholecystitis. Reviewed by: Alfredito Aguero MD on 04/02/2022 1:20 PM PDT Approved by: Alfredito Aguero MD on 04/02/2022 1:20 PM PDT Station ID: [id number]
== END 2022-04-02 08:58 | disposition home or self-care (01) ==
LOC: DI 08:57
PROVIDERS: ATTEND Nurse Practitioner
DX: K83.8 Other specified diseases of biliary tract (principal); K76.0 Fatty (change of) liver, not elsewhere classified; K82.8 Other specified diseases of gallbladder

== ENCOUNTER 2022-05-01 10:30 | Outpatient (CLI) | payer MEDICAID | END 2022-05-01 23:59 | disposition home or self-care (01) | LOC: MAC.MOP 10:30 | PROVIDERS: ATTEND Nurse Practitioner | DX: R55 Syncope and collapse (principal); I47.2 Ventricular tachycardia; I49.1 Atrial premature depolarization | CPT/HCPCS: 93248 ==

== ENCOUNTER 2022-05-13 09:15 | Outpatient (CLI) | payer MEDICAID ==
--- NOTE | 2022-05-13 12:35 | Mammography Report ---
BILATERAL DIGITAL DIAGNOSTIC MAMMOGRAM 3D/2D: 05/13/2022 CLINICAL: 2 Palpable right breast lumps and focal pain. Comparison is made to exams dated: 03/13/2020 mammogram and 03/13/2020 mammogram - [facility]. Both breasts are heterogeneously dense, which may obscure small masses (category c / 51-75% glandula r tissue). No significant masses, calcifications, or other findings are seen in either breast. No abnormality which corresponds with the palpable abnormalitues are seen. IMPRESSION: INCOMPLETE: NEEDS ADDITIONAL IMAGING EVALUATION There is no abnormality seen in the left breast to correspond with the palpable abnormality at 3 o'cl ock, however, ultrasound is recommended. There is no abnormality seen in the left breast to correspond with the palpable abnormality at 6 o'cl ock, however, ultrasound is recommended. Based on the Tyrer Cuzick model (a risk assessment model) the patients lifetime risk is 10.2% and he r 10 year risk is 1.8%. According to the ACR, ACS, and NCCN guidelines, an annual breast MRI exam mykel ng with mammogram is recommended if the patients lifetime risk is 20% or greater. This exam was interpreted at Station ID: [id number]. NOTE: For mammograms, a report in lay terms will be sent to the patient. Approximately 15% of breast malignancies will not be visualized mammographically. In the management of a palpable breast mass, a negative mammogram must not discourage biopsy of a clinically suspicious lesion. Electronically Signed By: Ryne Duke acr/:05/13/2022 10:47:51 ACR BI-RADS Category 0: Incomplete 3340F PARENCHYMAL PATTERN: (D) - The breast(s) demonstrate(s) heterogeneously dense fibroglandular parenchy ma. BI-RADS CATEGORY: (0) - 0 Ultrasound [id number] Immediate follow-up LATERALITY: (L)
--- NOTE | 2022-05-25 10:08 | Ultrasound Report ---
LIMITED ULTRASOUND OF LEFT BREAST: 05/13/2022 CLINICAL: Palpable left breast lump. Comparison is made to exams dated: 05/13/2022 mammogram, 03/13/2020 mammogram, and 03/13/2020 mammogram - [facility]. Continuous wave Doppler ultrasound of the left breast 2-3 o'clock and 6 o'clock regions was performe d. No abnormality which corresponds with the palpable abnormality is seen. IMPRESSION: NEGATIVE There is no sonographic evidence of malignancy. There are no abnormalities seen in the left breast to correspond with the palpable abnormalities at 2 , 3, and 6 o'clock, however, clinical followup is recommended. Recommend continued clinical and self breast exam and if there is any change in the palpable abnormal ity or enlargement, recommend repeat ultrasound at that time. Otherwise, a 1 year screening mammogram is recommended. This exam was interpreted at Station ID: [id number]. Electronically Signed By: Ryne Duke acr/:05/24/2022 13:41:34 Ultrasound BI-RADS: 1 Negative BI-RADS CATEGORY: (1) - 1 RECOMMENDATION: (ANNUAL) - Recommend routine annual screening mammography. [id number] 1 year screening LATERALITY: (B)
== END 2022-05-13 09:16 | disposition home or self-care (01) ==
LOC: DI 09:15
PROVIDERS: ATTEND Nurse Practitioner
DX: N63.25 Unspecified lump in the left breast, overlapping quadrants (principal)

== ENCOUNTER 2022-05-13 10:19 | Outpatient (CLI) | payer MEDICAID | END 2022-05-13 10:20 | disposition home or self-care (01) | LOC: LAB 10:19 | PROVIDERS: ATTEND Physician Assistant | DX: Z53.9 Procedure and treatment not carried out, unspecified reason (principal) ==

== ENCOUNTER 2022-05-25 16:51 | Emergency (ER) | payer MEDICAID ==
[2022-05-25] MEDS ORDERED: HYDROcod/ACETAM 5/325 MG TABLET PO STA (17:12)
[2022-05-25] MEDS ORDERED: cephALEXin 250 MG CAPSULE PO STA (17:12)
--- NOTE | 2022-05-25 17:16 | ED Physician Documentation ---
PD HPI WOUND RECHECK - Stated complaint Stated Complaint: FEMALE - Chief complaint Chief Complaint: Wound - Histroy obtained from History obtained from: Patient - Additional information Additional information: 47-year-old woman with alcoholism in remission presents with a draining abscess in the left groin. Is been going on for several days and is quite painful. No fevers or chills. She has an ancillary complaint of weight loss. She has GI and surgery follow-up and the running diagnosis is pancreatic insufficiency but she is not on pancreatic enzymes. Review of Systems Constitutional: reports: Fatigue, Weight Loss. 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: Other - Present Medications Home Medications: Ambulatory Orders Medication Instructions Recorded Confirmed Albuterol Sulfate [Albuterol 2 puffs IH Q4H PRN 05/06/20 05/25/22 Sulfate Hfa] Ibuprofen [Motrin] 800 mg PO DAILY PRN 11/29/21 05/25/22 Pnv No.121/Iron/Folic Acid 1 each PO DAILY #30 tablet 12/01/21 05/25/22 [ Multivitamin Tablet] Thiamine [Vitamin B-1] 100 mg PO DAILY #30 tablet 12/01/21 05/25/22 Omeprazole 40 mg PO DAILY #30 cap 01/01/22 05/25/22 HYDROcod/ACETAM 5/325 [[place] 5/325] 1 - 2 tab PO Q6H PRN #10 tablet 05/25/22 Lipase/Protease/Amylase [Creon Dr 1 each PO AC #90 cap.sr 05/25/22 24,000 Unit Capsule] Ondansetron Odt [Zofran Odt] 4 mg TL Q6H PRN 05/25/22 05/25/22 cephALEXin [Keflex] 500 mg PO Q6H #28 cap 05/25/22 - Allergies Allergies/Adverse Reactions: Allergies Allergy/AdvReac Type Severity Reaction Status Date / Time No Known Drug Allergies Allergy Verified 05/25/22 16:54 - Social History Does the pt smoke?: Yes Smoking Status: Current every day smoker Does the pt drink ETOH?: Yes Does the pt have substance abuse?: No - Immunizations Immunizations are current?: Yes Immunizations: TDAP >10years/unknown - POLST Patient has POLST: No POLST Status: Full Code PD ED PE NORMAL - Vitals Vital signs reviewed: Yes - General General: Alert and oriented X 3, No acute distress - Abdomen Abdomen: Normal bowel sounds, Soft, Non tender - Derm Derm: Other (Completely drained abscess but was still with some purulence at the base in the left groin. It is shallow. No cellulitis.) - 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, Normal speech Results - Vitals Vitals: Vital Signs - 24 hr 05/25/22 16:55 Temperature 37.1 C Heart Rate 101 H Respiratory 16 Rate Blood Pressure 142/88 H O2 Saturation 98 Oxygen O2 Source Room air PD MEDICAL DECISION MAKING - ED course ED course: She has an abscess that is completely drained and does not require further incision and drainage. She is started on Keflex for same pending wound culture. She also has a complaint of weight loss chronically, potentially due to chronic pancreatitis and we will trial some Creon. Departure - Departure Disposition: 01 Home, Self Care Clinical Impression: Abscess Condition: Good Record reviewed to determine appropriate education?: Yes Instructions: ED Staph Infec Abx Tx Only Prescriptions: Lipase/Protease/Amylase [[place] Dr 24,000 Unit Capsule] 1 each PO AC #90 cap.sr cephALEXin [Keflex] 500 mg PO Q6H #28 cap HYDROcod/ACETAM 5/325 [Java 5/325] 1 - 2 tab PO Q6H PRN #10 tablet PRN Reason: Pain Comments: I sent your prescriptions electronically to the [facility] pharmacy at the corner of [address] [address] and [facility] in [place]. Return for new or worsening symptoms. We are performing a wound culture, the results should be done in 48-72 hours. If antibiotic change is necessary we will call you. Return if worse in the meantime, especially if you develop increased pain, fevers, cannot keep down the medication. Otherwise follow-up with your physician in approximately 2-3 days. I am prescribing a short course of narcotic pain medication for you. These are potentially dangerous and addictive medications that should be used carefully. These medications may constipate you. Take an duyb-gay-pztjnyw stool softener (docusate) twice daily with plenty of water while taking these medications. If you go 24 hours without a bowel movement, take prpq-yit-vwcmmmj miralax, per package instructions. Do not drink or drive while taking these medications. If you received narcotic or sedating medications while in the emergency department, do not drive for 24 hours. Store this medication in a safe, secure place and out of reach of children. It is a violation of federal law to give or sell this medication to another person or to use in a manner other than prescribed. The ED will not refill narcotic prescriptions, including prescriptions lost or stolen. To dispose of unwanted medications: 1. [facility] at [address] in [place] has a medication drop box. They accept prescription medications (in pill form) Tuesday through Tuesday 9:00 a.m. to 5:00 p.m. 2. The [facility] accepts prescription medications (in pill form only) for disposal year round. Call for more information. 3. Contact the [facility] for the next [facility] sponsored prescription drug collection event. , [phone], or [phone]; Note that many narcotic pain relievers also contain Tylenol/acetaminophen. Please ensure that your total dose of acetaminophen from all sources does not exceed 3 g (3000 mg) per day.
[2022-05-25 17:55] VITALS: BP 130/80
--- NOTE | 2022-05-28 15:01 | ED Physician Documentation ---
ED Addendum - Addendum Addendum: 05/28/22 15:00 Reviewed cultures, will ask RN to change antibiotics to doxycycline 100 mg p.o. twice daily for 7 days
== END 2022-05-25 17:54 | disposition home or self-care (01) ==
LOC: ED 16:51
DX: L02.214 Cutaneous abscess of groin (principal); F17.200 Nicotine dependence, unspecified, uncomplicated
CPT/HCPCS: 87070; 87205; 99283; A9270; 87077; 87181

== ENCOUNTER 2022-06-13 10:02 | Outpatient (CLI) | payer MEDICAID | END 2022-06-13 10:03 | disposition EMS.NT | LOC: EMS 10:02 | DX: K12.1 Other forms of stomatitis (principal) ==

== ENCOUNTER 2022-06-13 10:33 | Emergency (ER) | payer MEDICAID ==
[2022-06-13] MEDS ORDERED: ONDANSETRON 4 MG/2 ML VIAL IVP STA (11:20)
[2022-06-13] MEDS ORDERED: SODIUM CHLORIDE 0.9% 1,000 ML IV STA (11:20)
[2022-06-13] MEDS ORDERED: PROMETHAZINE INJ 25 MG in SODIUM CHLORIDE 0.9% 50 ML IV STA (12:04)
[2022-06-13 12:06] LABS: ALBUMIN 2.8 g/dL (3.2-5.5); ALKALINE PHOSPHATASE 143 IU/L (42-121); ALT ALANINE AMINOTRANSFERASE 29 IU/L (10-60); AST ASPARTATE AMINOTRANSFERASE 37 IU/L (10-42); BILIRUBIN,TOTAL 1.1 mg/dL (0.2-1.0); BUN - BLOOD UREA NITROGEN < 5 mg/dL (6-20); CALCIUM 8.2 mg/dL (8.5-10.3); CARBON DIOXIDE - CO2 22 mmol/L (21-32); CHLORIDE 105 mmol/L (101-111); CREATININE 0.6 mg/dL (0.4-1.0); GFR - MDRD 108 (>89); GLUCOSE 115 mg/dL (70-100); LIPASE 28 U/L (22-51); POTASSIUM 2.6 mmol/L (3.5-5.0); SODIUM 142 mmol/L (135-145); TOTAL PROTEIN 5.6 g/dL (6.7-8.2)
--- NOTE | 2022-06-13 12:07 | ED Physician Documentation ---
History of Present Illness - Stated complaint Stated Complaint: MOUTH PX/ WEAK - Chief complaint Chief Complaint: Abd Pain - History obtained from History obtained from: Patient - History of Present Illness Timing: How many days ago Pain level max: 5 Pain level now: 5 - Additonal information Additional information: Patient is a 47-year-old female who presents to the emergency department complaining of a thick white substance on her tongue and on the roof of her mouth. She has been scraping this off. She states pain to her tongue and mouth. Started after she was taking antibiotics for a abscess. She states the abscess has resolved. No further swelling or drainage. Worse with eating and drinking, nothing makes it better. Started several days ago. No fevers. No chills. She states she had 1 episode of a small amount of blood in her emesis a few days ago but none since. She has had diarrhea as well, nonbloody. This seems to be improving now. 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, 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), Other : None HEENT: Other Psych: Depression, Anxiety Musculoskeletal: Chronic back pain, Other Derm: None - Past Surgical History Past Surgical 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 - Present Medications Home Medications: Ambulatory Orders Medication Instructions Recorded Confirmed Albuterol Sulfate [Albuterol 2 puffs IH Q4H PRN 05/06/20 05/25/22 Sulfate Hfa] Ibuprofen [Motrin] 800 mg PO DAILY PRN 11/29/21 05/25/22 Pnv No.121/Iron/Folic Acid 1 each PO DAILY #30 tablet 12/01/21 05/25/22 [ Multivitamin Tablet] Thiamine [Vitamin B-1] 100 mg PO DAILY #30 tablet 12/01/21 05/25/22 Omeprazole 40 mg PO DAILY #30 cap 01/01/22 05/25/22 HYDROcod/ACETAM 5/325 [[place] 5/325] 1 - 2 tab PO Q6H PRN #10 tablet 05/25/22 Lipase/Protease/Amylase [Creon Dr 1 each PO AC #90 cap.sr 05/25/22 24,000 Unit Capsule] Ondansetron Odt [Zofran Odt] 4 mg TL Q6H PRN 05/25/22 05/25/22 cephALEXin [Keflex] 500 mg PO Q6H #28 cap 05/25/22 Clotrimazole Alexx [Clotrimazole] 10 mg MM 5XD #60 lozenge 06/13/22 Ondansetron Odt [Zofran] 4 mg TL Q6H PRN #10 tablet 06/13/22 Potassium Chloride [K-Dur] 20 meq PO DAILY #5 tablet 06/13/22 Promethazine [Phenergan] 25 mg PO Q6H PRN #10 tab 06/13/22 - Allergies Allergies/Adverse Reactions: Allergies Allergy/AdvReac Type Severity Reaction Status Date / Time No Known Drug Allergies Allergy Verified 06/13/22 10:55 - Social History Does the pt smoke?: Yes Smoking Status: Current every day smoker Does the pt drink ETOH?: Yes Does the pt have substance abuse?: No - Immunizations Immunizations are current?: Yes Immunizations: TDAP >10years/unknown - POLST Patient has POLST: No POLST Status: Full Code PD ED PE NORMAL - Vitals Vital signs reviewed: Yes - General General: Alert and oriented X 3, No acute distress - HEENT HEENT: Moist mucous membranes, Other (I do not see any white exudates on the roof of her mouth or cheeks. There is inflammation of the mucous membranes. Normal phonation. No trismus.) - Neck Neck: Supple, no meningeal sign, No adenopathy - Cardiac Cardiac: RRR, Strong equal pulses - Respiratory Respiratory: No respiratory distress, Clear bilaterally - Abdomen Abdomen: Soft, Non tender, Non distended - Derm Derm: Warm and dry - Extremities Extremities: No edema - 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 - Psych Psych: Normal mood, Normal affect Results - Vitals Vitals: Vital Signs - 24 hr 06/13/22 06/13/2206/13/22 10:50 12:59 13:41 Temperature 36.7 C Heart Rate 69 69 59 L Respiratory 16 20 16 Rate Blood Pressure 105/56 L 96/60 O2 Saturation 98 100 100 Oxygen O2 Source Room air - Labs Labs: Laboratory Tests 06/13/22 06/13/22 06/13/22 11:30 11:30 11:30 WBC 8.7 RBC 3.14 L Hgb 11.3 L Hct 31.1 L MCV 99.0 MCH 36.0 H MCHC 36.3 H RDW 20.2 H Plt Count 504 H MPV 9.1 Neut # (Auto) 5.9 Lymph # (Auto) 2.3 [place] # (Auto) 0.4 Eos # (Auto) 0.0 Baso # (Auto) 0.0 Absolute Nucleated RBC 0.02 Nucleated RBC % 0.2 Manual Slide Review Indicated WBC Morphology NORMAL APPEARANCE Platelet Estimate INCREASED (>450,000) Platelet Morphology NORMAL APPEARANCE RBC Morph Micro Appear 1+ MACROCYTOSIS Sodium 142 Potassium 2.6 L Chloride 105 Carbon Dioxide 22 Anion Gap 15.0 H BUN < 5 L Creatinine 0.6 Estimated GFR (MDRD) 108 Glucose 115 H Calcium 8.2 L Phosphorus 3.6 Magnesium 2.0 Total Bilirubin 1.1 H AST 37 ALT 29 Alkaline Phosphatase 143 H Total Protein 5.6 L Albumin 2.8 L Globulin 2.8 Albumin/Globulin Ratio 1.0 Lipase 28 PD MEDICAL DECISION MAKING - ED course Complexity details: reviewed results, re-evaluated patient, considered differential, d/w patient ED course: 47-year-old female with what sounds like thrush by history. She states she has been scraping the white spots off of her mouth and palate and cheeks. We will treat for possible thrush. Patient feels better after IV fluids, Zofran and Phenergan. She is hypokalemic and was given oral potassium. Eating and drinking without difficulty here. This may be a side effect of the antibiotic she was placed on. She is finished with this now. Has no abscess recurrence. Abdomen is soft, nontender nondistended on serial exam. She will follow-up with her doctor to recheck her potassium later this week. Patient counseled regarding signs and symptoms for which I believe and urgent re-evaluation would be necessary. Patient with good understanding of and agreement to plan and is comfortable going home at this time This document was made in part using voice recognition software. While efforts are made to proofread this document, sound alike and grammatical errors may occur. Departure - Departure Disposition: 01 Home, Self Care Clinical Impression: Oral candidiasis, Hypokalemia, Dehydration Vomiting Qualifiers: Vomiting type: unspecified Nausea presence: with nausea Qualified Code(s): R11.2 - Nausea with vomiting, unspecified Diarrhea Qualifiers: Diarrhea type: unspecified type Qualified Code(s): R19.7 - Diarrhea, unsp ecified Condition: Good Instructions: Thrush Oral, ED Nausea Vomiting Follow-Up: your,doctor in 1 week [Other] Prescriptions: Clotrimazole Alexx [Clotrimazole] 10 mg MM 5XD #60 lozenge Potassium Chloride [K-Dur] 20 meq PO DAILY #5 tablet Promethazine [Phenergan] 25 mg PO Q6H PRN #10 tab PRN Reason: Nausea / Vomiting Ondansetron Odt [Zofran] 4 mg TL Q6H PRN #10 tablet PRN Reason: Nausea / Vomiting Comments: Your prescriptions were sent to the [facility] pharmacy. Drink plenty of fluids at home. Return if you worsen. Please have your potassium rechecked with your doctor later this week. Discharge Date/Time: 06/13/22 13:48
[2022-06-13] MEDS ORDERED: CLOTRIMAZOLE 10 MG LOZENGE MM STA (12:09)
[2022-06-13 12:24] LABS: BASOPHILS % (AUTO) 0.3 %; HCT - HEMATOCRIT 31.1 % (37.0-47.0); HGB - HEMOGLOBIN 11.3 g/dL (12.0-16.0); LYMPHOCYTES # (AUTO) 2.3 10^3/uL (1.5-3.5); LYMPHOCYTES % (AUTO) 26.8 %; MEAN CORPUSCULAR HGB CONC 36.3 g/dL (32.0-36.0); MEAN PLATELET VOLUME 9.1 fL (7.9-10.8); MONOCYTES # (AUTO) 0.4 10^3/uL (0.0-1.0); MONOCYTES % (AUTO) 4.9 %; NEUTROPHILS # (AUTO) 5.9 10^3/uL (1.5-6.6); NEUTROPHILS % (AUTO) 67.8 %; NRBC ABSOLUTE COUNT (AUTO) 0.02 x10^3/uL; NUCLEATED RED BLOOD CELLS AUTO 0.2 /100WBC; PLT - PLATELET COUNT 504 10^3/uL (130-450); RED BLOOD COUNT 3.14 10^6/uL (4.20-5.40); RED CELL DISTRIBUTION WIDTH 20.2 % (12.0-15.0); WHITE BLOOD COUNT 8.7 x10^3/uL (4.8-10.8)
[2022-06-13] MEDS ORDERED: POTASSIUM CHLORIDE 20 MEQ TABLET PO STA (12:27)
[2022-06-13] MEDS ORDERED: MAGNESIUM SULFATE 2 GRAM 2 GM/50 ML BAG IV ONE (12:28)
[2022-06-13 12:48] LABS: PHOSPHORUS 3.6 mg/dL (2.5-4.6)
[2022-06-13 12:54] LABS: SLIDE REVIEW? Indicated
[2022-06-13 13:00] LABS: WBC MORPHOLOGY (MULTIPLE) NORMAL APPEARANCE (NORMAL)
[2022-06-13 13:01] LABS: PLATELET ESTIMATE, MANUAL INCREASED (>450,000) (NORMAL); PLATELET MORPHOLOGY NORMAL APPEARANCE (NORMAL)
[2022-06-13 13:42] VITALS: BP 96/60
== END 2022-06-13 13:48 | disposition home or self-care (01) ==
LOC: ED 10:33
DX: B37.0 Candidal stomatitis (principal); E87.6 Hypokalemia; E86.0 Dehydration; R11.2 Nausea with vomiting, unspecified; R19.7 Diarrhea, unspecified; I10 Essential (primary) hypertension; F17.200 Nicotine dependence, unspecified, uncomplicated
CPT/HCPCS: 36415; 80053; 83690; 83735; 84100; 85025; 96361; 96365; 96368; 96375; 99284; A9270; J7040

== ENCOUNTER 2022-07-14 10:15 | Outpatient (CLI) | payer MEDICAID ==
[2022-07-14 10:50] LABS: % IRON SATURATION 20 % (20-50); CHOL/HDL RATIO 2.7 (<4.4); CHOLESTEROL 91 mg/dL; HDL CHOLESTEROL 34 mg/dL; IRON 46 ug/dL (28-170); LDL CHOLESTEROL,CALCULATED 34 mg/dL; TOTAL IRON BINDING CAPACITY 228 ug/dL (250-450); TRANSFERRIN 163 mg/dL (192-382); TRIGLYCERIDES 116 mg/dL; VLDL CHOLESTEROL 23 mg/dL
[2022-07-14 10:59] LABS: THYROID STIMULATING HORMONE 1.63 uIU/mL (0.34-5.60)
[2022-07-14 11:05] LABS: FERRITIN 16.6 ng/mL (11.0-306.8)
[2022-07-15 07:10] LABS: AFP SERUM TUMOR MARKER 2.4 ng/mL (0.0-6.4)
[2022-07-16 13:11] LABS: DEAMIDATED GLIADIN IGA 5 units (0-19); DEAMIDATED GLIADIN IGG 3 units (0-19); ENDOMYSIAL IGA Negative (Negative); IMMUNOGLOBULIN A 340 mg/dL (87-352); T-TRANSGLUTAMINASE (TTG) IGA <2 U/mL (0-3); T-TRANSGLUTAMINASE (TTG) IGG <2 U/mL (0-5)
== END 2022-07-14 10:16 | disposition home or self-care (01) ==
LOC: LAB 10:15
PROVIDERS: ATTEND Physician Assistant
DX: K85.90 Acute pancreatitis without necrosis or infection, unspecified (principal); R10.84 Generalized abdominal pain; R74.8 Abnormal levels of other serum enzymes
CPT/HCPCS: 36415; 80061; 81599; 82105; 82390; 82728; 82784; 82787; 83516; 83540; 83721; 84443; 84466; 86255

== ENCOUNTER 2022-07-25 10:17 | Outpatient (CLI) | payer MEDICAID ==
[2022-07-25 10:41] LABS: BASOPHILS # (AUTO) 0.1 10^3/uL (0.0-0.1); BASOPHILS % (AUTO) 0.9 %; EOSINOPHILS # (AUTO) 0.2 10^3/uL (0.0-0.7); EOSINOPHILS % (AUTO) 1.8 %; HCT - HEMATOCRIT 31.3 % (37.0-47.0); HGB - HEMOGLOBIN 10.5 g/dL (12.0-16.0); LYMPHOCYTES # (AUTO) 3.9 10^3/uL (1.5-3.5); LYMPHOCYTES % (AUTO) 36.7 %; MEAN CORPUSCULAR HEMOGLOBIN 37.9 pg (27.0-31.0); MEAN CORPUSCULAR HGB CONC 33.5 g/dL (32.0-36.0); MEAN PLATELET VOLUME 8.3 fL (7.9-10.8); MONOCYTES # (AUTO) 0.5 10^3/uL (0.0-1.0); MONOCYTES % (AUTO) 4.7 %; NEUTROPHILS # (AUTO) 5.9 10^3/uL (1.5-6.6); NEUTROPHILS % (AUTO) 55.5 %; PLT - PLATELET COUNT 392 10^3/uL (130-450); RED BLOOD COUNT 2.77 10^6/uL (4.20-5.40); RED CELL DISTRIBUTION WIDTH 15.8 % (12.0-15.0); WHITE BLOOD COUNT 10.6 x10^3/uL (4.8-10.8)
[2022-07-25 10:47] LABS: INR 1.2 (0.8-1.2)
[2022-07-25 10:57] LABS: ALBUMIN 2.5 g/dL (3.2-5.5); ALBUMIN/GLOBULIN RATIO 0.8 (1.0-2.2); BILIRUBIN,TOTAL 0.5 mg/dL (0.2-1.0); CREATININE 0.5 mg/dL (0.4-1.0); POTASSIUM 3.9 mmol/L (3.5-5.0); TOTAL PROTEIN 5.6 g/dL (6.7-8.2)
[2022-07-28 10:09] LABS: MITOCHONDRIAL (M2) ANTIBODY <20.0 Units (0.0-20.0)
[2022-07-28 17:08] LABS: ANTINUCLEAR ANTIBODIES IFA Negative (.)
== END 2022-07-25 10:18 | disposition home or self-care (01) ==
LOC: LAB 10:17
PROVIDERS: ATTEND Nurse Practitioner
DX: K74.60 Unspecified cirrhosis of liver (principal); K86.1 Other chronic pancreatitis
CPT/HCPCS: 36415; 80053; 82150; 83690; 85025; 85610; 85730; 86038; 86381

== ENCOUNTER 2022-09-13 21:09 | Emergency (ER) | payer MEDICAID ==
[2022-09-13] MEDS ORDERED: methocarbamoL 500 MG TABLET PO STA (22:06)
[2022-09-13] MEDS ORDERED: HYDROcod/ACETAM 5/325 MG TABLET PO STA ×2 (22:06→22:58)
[2022-09-13 22:21] LABS: BASOPHILS # (AUTO) 0.1 10^3/uL (0.0-0.1); BASOPHILS % (AUTO) 0.9 %; EOSINOPHILS # (AUTO) 0.2 10^3/uL (0.0-0.7); EOSINOPHILS % (AUTO) 1.5 %; HCT - HEMATOCRIT 33.4 % (37.0-47.0); HGB - HEMOGLOBIN 10.5 g/dL (12.0-16.0); LYMPHOCYTES # (AUTO) 4.5 10^3/uL (1.5-3.5); LYMPHOCYTES % (AUTO) 38.5 %; MEAN CORPUSCULAR HEMOGLOBIN 34.9 pg (27.0-31.0); MEAN CORPUSCULAR HGB CONC 31.4 g/dL (32.0-36.0); MEAN PLATELET VOLUME 8.4 fL (7.9-10.8); MONOCYTES # (AUTO) 0.8 10^3/uL (0.0-1.0); MONOCYTES % (AUTO) 6.6 %; NEUTROPHILS # (AUTO) 6.1 10^3/uL (1.5-6.6); NEUTROPHILS % (AUTO) 52.2 %; PLT - PLATELET COUNT 426 10^3/uL (130-450); RED BLOOD COUNT 3.01 10^6/uL (4.20-5.40); RED CELL DISTRIBUTION WIDTH 13.6 % (12.0-15.0); WHITE BLOOD COUNT 11.7 x10^3/uL (4.8-10.8)
[2022-09-13 22:22] LABS: SLIDE REVIEW? Indicated
[2022-09-13 22:33] LABS: ALBUMIN 2.7 g/dL (3.2-5.5); ALBUMIN/GLOBULIN RATIO 0.8 (1.0-2.2); BILIRUBIN,TOTAL 0.4 mg/dL (0.2-1.0); CALCIUM 8.3 mg/dL (8.5-10.3); CREATININE 0.6 mg/dL (0.4-1.0); PHOSPHORUS 4.2 mg/dL (2.5-4.6); POTASSIUM 3.7 mmol/L (3.5-5.0); TOTAL PROTEIN 5.9 g/dL (6.7-8.2)
[2022-09-13 22:45] LABS: PLATELET ESTIMATE, MANUAL NORMAL (130-450,000) (NORMAL); PLATELET MORPHOLOGY 1+ GIANT PLATELETS (NORMAL); RBC MORPHOLOGY (MULTIPLE) 2+ MACROCYTOSIS (NORMAL)
--- NOTE | 2022-09-13 23:02 | ED Physician Documentation ---
PD HPI BACK PAIN - Stated complaint Stated Complaint: BACK PX, TWITCHING - Chief complaint Chief Complaint: Back Pain - History obtained from History obtained from: Patient - History of Present Illness Timing - onset: How many days ago (3) Timing - duration: Days (3) Timing - details: Gradual onset Pain level max: 6 Pain level now: 6 Location: Mid, Lower, Right, Left Quality: Pain, Spasm, Similar to prior episodes Associated symptoms: No: Fever, Weakness, Numbness, Incontinent of urine, Unable to urinate, Hematuria, Incontinent of stool Improves with: Rest Worsened by: Movement Contributing factors: No: Lifting, Twisting, Trauma, Anticoagulated, Cancer, IVDA, Out of meds Review of Systems Constitutional: denies: Fever, Chills GI: denies: Vomiting : denies: Now EGA Neurologic: denies: Focal weakness, Numbness PD PAST MEDICAL HISTORY - Past Medical History Past Medical History: Yes Cardiovascular: Hypertension Respiratory: None Neuro: Migraines Endocrine/Autoimmune: None GI: Pancreatitis 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, 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), Other : None HEENT: Other Psych: Depression, Anxiety Musculoskeletal: Chronic back pain, Other Derm: None - Past Surgical History Past Surgical 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 - Present Medications Home Medications: Ambulatory Orders Medication Instructions Recorded Confirmed Albuterol Sulfate [Albuterol 2 puffs IH Q4H PRN 05/06/20 05/25/22 Sulfate Hfa] Ibuprofen [Motrin] 800 mg PO DAILY PRN 11/29/21 05/25/22 Pnv No.121/Iron/Folic Acid 1 each PO DAILY #30 tablet 12/01/21 05/25/22 [ Multivitamin Tablet] Thiamine [Vitamin B-1] 100 mg PO DAILY #30 tablet 12/01/21 05/25/22 Omeprazole 40 mg PO DAILY #30 cap 01/01/22 05/25/22 HYDROcod/ACETAM 5/325 [[place] 5/325] 1 - 2 tab PO Q6H PRN #10 tablet 05/25/22 Lipase/Protease/Amylase [Creon Dr 1 each PO AC #90 cap.sr 05/25/22 24,000 Unit Capsule] Ondansetron Odt [Zofran Odt] 4 mg TL Q6H PRN 09/20/22 09/20/22 cephALEXin [Keflex] 500 mg PO Q6H #28 cap 05/25/22 Clotrimazole Alexx [Clotrimazole] 10 mg MM 5XD #60 lozenge 06/13/22 Ondansetron Odt [Zofran] 4 mg TL Q6H PRN #10 tablet 06/13/22 Potassium Chloride [K-Dur] 20 meq PO DAILY #5 tablet 06/13/22 Promethazine [Phenergan] 25 mg PO Q6H PRN #10 tab 06/13/22 HYDROcod/ACETAM 5/325 [[place] 5/325] 1 - 2 ea PO Q6H PRN #14 tablet 09/13/22 methocarbamoL [Robaxin] 500 mg PO Q6H PRN #20 tablet 09/13/22 - Allergies Allergies/Adverse Reactions: Allergies Allergy/AdvReac Type Severity Reaction Status Date / Time No Known Drug Allergies Allergy Verified 09/13/22 21:17 - Social History Does the pt smoke?: Yes Smoking Status: Current every day smoker Does the pt drink ETOH?: Yes Does the pt have substance abuse?: No - Immunizations Immunizations are current?: Yes Immunizations: TDAP >10years/unknown - POLST Patient has POLST: No POLST Status: Full Code PD ED PE NORMAL - Vitals Vital signs reviewed: Yes - General General: Alert and oriented X 3, No acute distress, Well developed/nourished - HEENT HEENT: PERRL, Moist mucous membranes - Neck Neck: Supple, no meningeal sign - Cardiac Cardiac: RRR, Strong equal pulses - Respiratory Respiratory: No respiratory distress, Clear bilaterally - Abdomen Abdomen: Soft, Non tender, Non distended - Back Back: No spinal TTP (No midline tenderness to palpation or percussion. No step- off or deformity.) - Derm Derm: Warm and dry - Extremities Extremities: No edema, No calf tenderness / cord - 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, No motor deficit, No sensory deficit, Other (Normal bilateral lower extremity patellar and ankle jerk reflexes. Normal great toe extension bilaterally. no saddle anesthesia) - Psych Psych: Normal mood, Normal affect Results - Vitals Vitals: Vital Signs - 24 hr 09/13/22 09/13/22 21:13 23:13 Temperature 36.1 C L Heart Rate 74 73 Respiratory 18 16 Rate Blood Pressure 155/93 H 152/97 H O2 Saturation 100 100 Oxygen O2 Source Room air - Labs Labs: Laboratory Tests 09/13/22 09/13/22 22:15 22:15 WBC 11.7 H RBC 3.01 L Hgb 10.5 L Hct 33.4 L MCV 111.0 H MCH 34.9 H MCHC 31.4 L RDW 13.6 Plt Count 426 MPV 8.4 Neut # (Auto) 6.1 Lymph # (Auto) 4.5 H [place] # (Auto) 0.8 Eos # (Auto) 0.2 Baso # (Auto) 0.1 Absolute Nucleated RBC 0.00 Nucleated RBC % 0.0 Manual Slide Review Indicated Platelet Estimate NORMAL (130-450,000) Platelet Morphology 1+ GIANT PLATELETS RBC Morph Micro Appear 2+ MACROCYTOSIS Sodium 138 Potassium 3.7 Chloride 113 H Carbon Dioxide 20 L Anion Gap 5.0 L BUN 8 Creatinine 0.6 Estimated GFR (MDRD) 108 Glucose 90 Calcium 8.3 L Phosphorus 4.2 Magnesium 2.0 Total Bilirubin 0.4 AST 29 ALT 25 Alkaline Phosphatase 112 Total Protein 5.9 L Albumin 2.7 L Globulin 3.2 Albumin/Globulin Ratio 0.8 L PD Medical Decision Making - ED course Complexity details: reviewed results, re-evaluated patient, considered differential (No cauda equina, no spinal epidural abscess, no fracture, no aortic dissection or evidence of aneursym rupture), d/w patient ED course: Patient with back spasm and muscle spasms. Feels better after oral hydrocodone and Robaxin. Ambulating without difficulty in the emergency department. No rice p. No evidence of cauda equina, epidural abscess. No indication for emergent imaging. Laboratory testing does not show any acute abnormalities. Patient will follow up with her doctor for further care. No red flags. Patient counseled regarding signs and symptoms for which I believe and urgent re- evaluation would be necessary. Patient with good understanding of and agreement to plan and is comfortable going home at this time This document was made in part using voice recognition software. While efforts are made to proofread this document, sound alike and grammatical errors may occur. Departure - Departure Disposition: 01 Home, Self Care Clinical Impression: Back spasm Condition: Good Instructions: ED Spasm Back No Trauma Follow-Up: Shelia Barajas ARNP [Primary Care Provider] - Within 1 week Prescriptions: HYDROcod/ACETAM 5/325 [[place] 5/325] 1 - 2 ea PO Q6H PRN #14 tablet PRN Reason: Pain methocarbamoL [Robaxin] 500 mg PO Q6H PRN #20 tablet PRN Reason: muscle spasm Comments: Please follow-up with your doctor for further care. Your prescriptions were sent to [facility] in [place]. Please return if you worsen. Do not drink alcohol with the medications you are prescribed. I am prescribing a short course of narcotic pain medication for you. These are potentially dangerous and addictive medications that should be used carefully. These medications may constipate you. Take an aael-xji-gxnarid stool softener (docusate) twice daily with plenty of water while taking these medications. If you go 24 hours without a bowel movement, take cwml-sjn-fshisdx miralax, per package instructions. Do not drink or drive while taking these medications. If you received narcotic or sedating medications while in the emergency department, do not drive for 24 hours. Store this medication in a safe, secure place and out of reach of children. It is a violation of federal law to give or sell this medication to another person or to use in a manner other than prescribed. The ED will not refill narcotic prescriptions, including prescriptions lost or stolen. To dispose of unwanted medications: 1. [facility] at [address] [facility] in [place] has a medication drop box. They accept prescription medications (in pill form) Tuesday through Tuesday 9:00 a.m. to 5:00 p.m. 2. The [facility] accepts prescription medications (in pill form only) for disposal year round. Call for more information. 3. Contact the [facility] for the next [facility] sponsored prescription drug collection event. , [phone], or [phone]; Discharge Date/Time: 09/13/22 23:15
[2022-09-13 23:14] VITALS: BP 152/97
== END 2022-09-13 23:15 | disposition home or self-care (01) ==
LOC: ED 21:09
DX: M62.830 Muscle spasm of back (principal)
CPT/HCPCS: 36415; 80053; 83735; 84100; 85025; 99283; A9270

== ENCOUNTER 2022-09-19 12:08 | Outpatient (CLI) | payer MEDICAID ==
[2022-09-19 12:52] LABS: INR 1.2 (0.8-1.2); PT - PROTHROMBIN TIME 13.1 secs (9.9-12.6)
[2022-09-19 12:58] LABS: ALBUMIN 2.2 g/dL (3.2-5.5); ALBUMIN/GLOBULIN RATIO 0.8 (1.0-2.2); BILIRUBIN,TOTAL 0.7 mg/dL (0.2-1.0); CALCIUM 7.4 mg/dL (8.5-10.3); CREATININE 0.5 mg/dL (0.4-1.0); POTASSIUM 3.3 mmol/L (3.5-5.0); TOTAL PROTEIN 5.1 g/dL (6.7-8.2)
== END 2022-09-19 12:09 | disposition home or self-care (01) ==
LOC: LAB 12:08
PROVIDERS: ATTEND Physician Assistant
DX: E83.00 Disorder of copper metabolism, unspecified (principal); K86.1 Other chronic pancreatitis; R10.84 Generalized abdominal pain
CPT/HCPCS: 36415; 80053; 81599; 82525; 82570; 82784; 82787; 83690; 85610

== ENCOUNTER 2022-09-23 08:29 | Outpatient (CLI) | payer MEDICAID | END 2022-09-23 08:30 | disposition home or self-care (01) | LOC: LAB.R 08:29 | PROVIDERS: ATTEND Physician Assistant | DX: K86.1 Other chronic pancreatitis (principal) | CPT/HCPCS: 81599; 82653 ==

== ENCOUNTER 2022-10-17 22:14 | Emergency (ER) | payer MEDICAID ==
[2022-10-17 22:25] VITALS: BP 149/99
[2022-10-17 22:44] LABS: BASOPHILS # (AUTO) 0.1 10^3/uL (0.0-0.1); BASOPHILS % (AUTO) 0.7 %; EOSINOPHILS # (AUTO) 0.3 10^3/uL (0.0-0.7); EOSINOPHILS % (AUTO) 1.7 %; HCT - HEMATOCRIT 33.5 % (37.0-47.0); HGB - HEMOGLOBIN 11.1 g/dL (12.0-16.0); LYMPHOCYTES # (AUTO) 4.4 10^3/uL (1.5-3.5); LYMPHOCYTES % (AUTO) 27.1 %; MEAN CORPUSCULAR HEMOGLOBIN 33.4 pg (27.0-31.0); MEAN CORPUSCULAR HGB CONC 33.1 g/dL (32.0-36.0); MEAN CORPUSCULAR VOLUME 100.9 fL (81.0-99.0); MEAN PLATELET VOLUME 8.4 fL (7.9-10.8); MONOCYTES # (AUTO) 0.9 10^3/uL (0.0-1.0); MONOCYTES % (AUTO) 5.7 %; NEUTROPHILS # (AUTO) 10.4 10^3/uL (1.5-6.6); NEUTROPHILS % (AUTO) 64.4 %; PLT - PLATELET COUNT 390 10^3/uL (130-450); RED BLOOD COUNT 3.32 10^6/uL (4.20-5.40); RED CELL DISTRIBUTION WIDTH 16.3 % (12.0-15.0); WHITE BLOOD COUNT 16.1 x10^3/uL (4.8-10.8)
[2022-10-17 22:52] LABS: BILIRUBIN,URINE NEGATIVE (NEGATIVE); GLUCOSE, URINE (UA) NEGATIVE (NEGATIVE); KETONES,URINE (UA) NEGATIVE (NEGATIVE); LEUKOCYTE ESTERASE, URINE NEGATIVE (NEGATIVE); NITRITE,URINE POSITIVE (NEGATIVE); OCCULT BLOOD,URINE NEGATIVE (NEGATIVE); PH,URINE 6.5 PH (5.0-7.5); PROTEIN,URINE NEGATIVE (NEGATIVE); UROBILINOGEN,URINE 0.2 (NORMAL) E.U./dL (NORMAL)
[2022-10-17 22:55] LABS: ALBUMIN 2.7 g/dL (3.2-5.5); ALBUMIN/GLOBULIN RATIO 0.8 (1.0-2.2); BILIRUBIN,TOTAL 0.3 mg/dL (0.2-1.0); CALCIUM 8.7 mg/dL (8.5-10.3); CREATININE 0.4 mg/dL (0.4-1.0); POTASSIUM 3.6 mmol/L (3.5-5.0); TOTAL PROTEIN 6.3 g/dL (6.7-8.2)
[2022-10-17] MEDS ORDERED: ONDANSETRON 4 MG/2 ML VIAL IM STA (22:55)
[2022-10-17] MEDS ORDERED: HYDROmorphone 1 MG/ML CARPUJECT IM STA (22:55)
[2022-10-17 22:57] LABS: CLARITY,URINE CLEAR (CLEAR); RBC,URINE 0-5 /HPF (0-5); WBC,URINE 0-3 /HPF (0-5)
[2022-10-17 22:58] LABS: BACTERIA,URINE Many /HPF (None Seen); SQUAMOUS EPITHELIAL CELL,UR MANY Squamous (<= Few)
[2022-10-17] MEDS ORDERED: HYDROcod/ACET 5/325 Prepack 4 PO STA (23:27)
[2022-10-17] MEDS ORDERED: ONDANSETRON ODT 4 MG Prepack 2 TL PRN (23:27)
--- NOTE | 2022-10-17 23:29 | ED Physician Documentation ---
History of Present Illness - Stated complaint Stated Complaint: ABD PX, SOA - Chief complaint Chief Complaint: Abd Pain - History obtained from History obtained from: Patient - Additonal information Additional information: The patient comes to the emergency department chief complaint of a flareup of her chronic upper abdominal pain. The patient has a longstanding history of upper abdominal pain and has had extensive work-up, including CT scans, ultrasounds, MRCP, And HIDA scan. When she was seen here in April by myself, she had reported that she was going to see a GI specialist and surgeon and talk about possibly having a cholecystectomy. However, the patient states now that she never made it to that appointment and instead, has had telehealth appointments with her GI specialist. They have this point decided that the patient should just be on pancreatic enzymes and does not need a cholecystectomy. The patient has a history of alcoholism but has been sober since last November, she states. She is not really sure what triggered this episode, and states that there is no specific food that seems to trigger her pain. She states she has been nauseated but has not had any vomiting. She states the pain is very much like what she has had in the past with previous episodes. No other complaints at this time. She does note that her GI specialist is trying to work with our surgeons locally to see if she can have endoscopy and colonoscopy done here, as she has not had either of those things done to evaluate her pain. 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: Other - Present Medications Home Medications: Ambulatory Orders Medication Instructions Recorded Confirmed Albuterol Sulfate [Albuterol 2 puffs IH Q4H PRN 05/06/20 05/25/22 Sulfate Hfa] Ibuprofen [Motrin] 800 mg PO DAILY PRN 11/29/21 05/25/22 Pnv No.121/Iron/Folic Acid 1 each PO DAILY #30 tablet 12/01/21 05/25/22 [ Multivitamin Tablet] Thiamine [Vitamin B-1] 100 mg PO DAILY #30 tablet 12/01/21 05/25/22 Omeprazole 40 mg PO DAILY #30 cap 01/01/22 05/25/22 HYDROcod/ACETAM 5/325 [White 5/325] 1 - 2 tab PO Q6H PRN #10 tablet 05/25/22 Lipase/Protease/Amylase [Creon Dr 1 each PO AC #90 cap.sr 05/25/22 24,000 Unit Capsule] Ondansetron Odt [Zofran Odt] 4 mg TL Q6H PRN 05/25/22 05/25/22 cephALEXin [Keflex] 500 mg PO Q6H #28 cap 05/25/22 Clotrimazole Alexx [Clotrimazole] 10 mg MM 5XD #60 lozenge 06/13/22 Ondansetron Odt [Zofran] 4 mg TL Q6H PRN #10 tablet 06/13/22 Potassium Chloride [K-Dur] 20 meq PO DAILY #5 tablet 06/13/22 Promethazine [Phenergan] 25 mg PO Q6H PRN #10 tab 06/13/22 HYDROcod/ACETAM 5/325 [White 5/325] 1 - 2 ea PO Q6H PRN #14 tablet 09/13/22 methocarbamoL [Robaxin] 500 mg PO Q6H PRN #20 tablet 09/13/22 - Allergies Allergies/Adverse Reactions: Allergies Allergy/AdvReac Type Severity Reaction Status Date / Time No Known Drug Allergies Allergy Verified 10/17/22 22:25 - Social History Does the pt smoke?: Yes Smoking Status: Current every day smoker Does the pt drink ETOH?: Yes Does the pt have substance abuse?: No - Immunizations Immunizations are current?: Yes Immunizations: TDAP >10years/unknown - POLST Patient has POLST: No POLST Status: Full Code PD ED PE NORMAL - Vitals Vital signs reviewed: Yes - General General: Alert and oriented X 3, No acute distress, Well developed/nourished - HEENT HEENT: Atraumatic, PERRL, EOMI, Moist mucous membranes - Neck Neck: Supple, no meningeal sign - Cardiac Cardiac: RRR, No murmur, Strong equal pulses - Respiratory Respiratory: No respiratory distress, Clear bilaterally - Abdomen Abdomen: Soft, Non distended, Other (Moderate epigastric tenderness with some medial right upper quadrant tenderness, as well. No rebound or guarding.) - Derm Derm: Warm and dry - Extremities Extremities: No deformity - 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 - Psych Psych: Normal mood, Normal affect Results - Vitals Vitals: Vital Signs - 24 hr 10/17/22 22:18 Temperature 36.8 C Heart Rate 108 H Respiratory 20 Rate Blood Pressure 149/99 H O2 Saturation 100 Oxygen O2 Source Room air - Labs Labs: Laboratory Tests 10/17/22 10/17/22 10/17/22 22:35 22:35 22:41 WBC 16.1 H RBC 3.32 L Hgb 11.1 L Hct 33.5 L MCV 100.9 H MCH 33.4 H MCHC 33.1 RDW 16.3 H Plt Count 390 MPV 8.4 Neut # (Auto) 10.4 H Lymph # (Auto) 4.4 H [place] # (Auto) 0.9 Eos # (Auto) 0.3 Baso # (Auto) 0.1 Absolute Nucleated RBC 0.00 Nucleated RBC % 0.0 Sodium 135 Potassium 3.6 Chloride 101 Carbon Dioxide 24 Anion Gap 10.0 BUN 11 Creatinine 0.4 Estimated GFR (MDRD) 173 Glucose 102 H Calcium 8.7 Total Bilirubin 0.3 AST 36 ALT 21 Alkaline Phosphatase 109 Total Protein 6.3 L Albumin 2.7 L Globulin 3.6 Albumin/Globulin Ratio 0.8 L Lipase 44 Urine Color YELLOW Urine Clarity CLEAR Urine pH 6.5 Ur Specific [place] 1.020 Urine Protein NEGATIVE Urine Glucose (UA) NEGATIVE Urine Ketones NEGATIVE Urine Occult Blood NEGATIVE Urine Nitrite POSITIVE H Urine Bilirubin NEGATIVE Urine Urobilinogen 0.2 (NORMAL) Ur Leukocyte Esterase NEGATIVE Urine RBC 0-5 Urine WBC 0-3 Ur Squamous Epith Cells MANY Squamous H Urine Bacteria Many H Ur Microscopic Review INDICATED Urine Culture Comments NOT INDICATED PD Medical Decision Making - ED course Complexity details: reviewed old records, reviewed results, re-evaluated patient, considered differential, d/w patient ED course: The patient was given a liter of normal saline and doses of Dilaudid and Zofran. She was worked up with laboratory studies which were ordered and reviewed by me, including CBC which showed an elevated white blood cell count of 16, and an ER abdominal panel, which showed normal lipase and no significant abnormalities of LFTs. The patient's urinalysis was positive for nitrite and bacteria, but was heavily contaminated with squamous cells, and I felt that the patient should not be treated with antibiotics unless the culture comes back positive. I went and reevaluated the patient, who is feeling better than she had been. She reported that the pain is same as episode she has had before of her chronic pain, which has been extensively worked up, and additionally, her abdominal exam did not reveal an acute abdomen. [facility] Tuesday [facility], and I did not feel that CT imaging was likely to be helpful if any imaging was done at all. At this point in time, I discussed with the patient that she should stick to a clear liquid diet for the next 24 hours and then slowly advance her diet as tolerated if she is no longer in pain or nauseated. We have discussed that if her symptoms get noticeably worse, she should return to the emergency department. Patient was agreeable to this plan. She is also advised to call her GI specialist's office first thing tomorrow morning. Departure - Departure Disposition: 01 Home, Self Care Clinical Impression: Abdominal pain Qualifiers: Abdominal location: upper abdomen, unspecified Qualified Code(s): R10.10 - Upper abdominal pain, unspecified Condition: Stable Instructions: ED Abdominal Pain Female Non-Specific Abdominal Pain Comments: Your labs do not show pancreatitis or an elevation of your liver enzymes. Your white blood cell count is moderately elevated, which can be due to a number of possibilities. Your abdominal exam does show some tenderness in the top of your abdomen, but does not reveal any concerning findings at this time for a more serious condition. Your urinalysis does show some bacterial breakdown products, but is also contaminated with residue from the outside, and at this time, we will wait to start antibiotics unless your culture comes back positive. Please drink plenty of fluids and follow-up as planned with your orderlies teacher. If you feel as though you are significantly worsening, please return to the emergency department for reevaluation. Discharge Date/Time: 10/17/22 23:51
== END 2022-10-17 23:51 | disposition home or self-care (01) ==
LOC: ED 22:14
DX: R10.10 Upper abdominal pain, unspecified (principal); I10 Essential (primary) hypertension; F17.200 Nicotine dependence, unspecified, uncomplicated
CPT/HCPCS: 36415; 80053; 81001; 83690; 85025; 96372; 99283; 99284; J1170; 81003; 87086

== ENCOUNTER 2022-10-20 10:13 | Outpatient (CLI) | payer MEDICAID ==
[2022-10-20 11:00] LABS: ALBUMIN 2.3 g/dL (3.2-5.5); ALBUMIN/GLOBULIN RATIO 0.7 (1.0-2.2); BILIRUBIN,TOTAL 0.3 mg/dL (0.2-1.0); CREATININE 0.5 mg/dL (0.4-1.0); CRP - C-REACTIVE PROTEIN 3.7 mg/dL (0-1.0); POTASSIUM 3.3 mmol/L (3.5-5.0); TOTAL PROTEIN 5.8 g/dL (6.7-8.2)
[2022-10-20 11:02] LABS: PT - PROTHROMBIN TIME 11.8 secs (9.9-12.6)
[2022-10-21 06:10] LABS: HBsAG SCREEN Negative (Negative); HCV AB Non Reactive (Non Reactive); HEPATITIS B CORE IGM AB Negative (Negative)
[2022-10-21 07:10] LABS: AFP SERUM TUMOR MARKER 2.2 ng/mL (0.0-6.4)
[2022-10-22 06:10] LABS: ADENOVIRUS F 40/41 Not Detected (Not Detected); ASTROVIRUS Not Detected (Not Detected); C DIFFICILE TOXIN A/B Not Detected (Not Detected); CAMPYLOBACTER Not Detected (Not Detected); CRYPTOSPORIDIUM Not Detected (Not Detected); CYCLOSPORA CAYETANENSIS Not Detected (Not Detected); ENTAMOEBA HISTOLYTICA Not Detected (Not Detected); ENTEROAGGREGATIVE E COLI Not Detected (Not Detected); ENTEROPATHOGENIC E COLI Not Detected (Not Detected); ENTEROTOXIGENIC E COLI Not Detected (Not Detected); GIARDIA LAMBLIA Not Detected (Not Detected); NOROVIRUS GI/GII Not Detected (Not Detected); PLESIOMONAS SHIGELLOIDES Not Detected (Not Detected); ROTAVIRUS A Not Detected (Not Detected); SALMONELLA Not Detected (Not Detected); SAPOVIRUS Not Detected (Not Detected); SHIGA-TOXIN-PRODUCING E COLI Not Detected (Not Detected); SHIGELLA/ENTEROINVASIVE E COLI Not Detected (Not Detected); VIBRIO Not Detected (Not Detected); VIBRIO CHOLERAE Not Detected (Not Detected); YERSINIA ENTEROCOLITICA Not Detected (Not Detected)
[2022-10-22 09:09] LABS: LIVER-KIDNEY MICROSOMAL AB 0.9 Units (0.0-20.0)
== END 2022-10-20 10:14 | disposition home or self-care (01) ==
LOC: LAB 10:13
PROVIDERS: ATTEND Physician Assistant
DX: K70.30 Alcoholic cirrhosis of liver without ascites (principal); K86.89 Other specified diseases of pancreas; R19.7 Diarrhea, unspecified; R10.84 Generalized abdominal pain
CPT/HCPCS: 36415; 80053; 81599; 82105; 83690; 85610; 86015; 86140; 86376; 86381; 86705; 86709; 86803; 87340; 87507

== ENCOUNTER 2022-10-26 14:53 | Outpatient (CLI) | payer MEDICAID ==
[2022-10-26] MEDS ORDERED: iohexoL-300 100 ML VIAL ONE (14:57)
--- NOTE | 2022-10-26 16:45 | CT Report ---
PROCEDURE: ABDOMEN/PELVIS W INDICATIONS: PANCREATIC DUCT DILATED, PANCREATIC STONES CONTRAST: 100mL Omni 300 TECHNIQUE: After the administration of IV and oral contrast, 5 mm thick sections acquired from the diaphragms to the symphysis. 5 mm thick coronal and sagittal reformats were acquired. For radiation dose reducti on, the following was used: automated exposure control, adjustment of mA and/or kV according to ascencion ent size. COMPARISON: CT of abdomen and pelvis dated 11/28/2021, 12/12/2020 and 05/05/2020. Ultrasound of abdomen dated 04/18/2022 and 04/02/2022. FINDINGS: Image quality: Excellent. ABDOMEN: Lung bases: Lung bases are clear. Heart size is normal. Solid organs: Liver and spleen are normal in size and enhancement. Gallbladder is within normal rice its. There is no intrahepatic biliary ductal dilatation. Common bile duct measures up to 7 mm in diam eter. Pancreas appears atrophic on the current study with numerous calcifications scattered throughout the pancreatic parenchyma. Prominence of the pancreatic head and uncinate process is seen with adjacent f at stranding and edema concerning for focal pancreatitis involving pancreatic head and uncinate proce ss. Dilated pancreatic duct is seen measures up to 9 mm in diameter near pancreatic head with suggest ion of multiple pancreatic duct stones. No peripancreatic fluid collection is seen. No adrenal nodules. Kidneys demonstrate normal size and enhancement, without hydronephrosis. Peritoneum and bowel: There is no bowel obstruction. No gross abnormal bowel wall thickening or mesen teric fat stranding. No abscess collection. No free fluid of free air. Nodes and vessels: No retroperitoneal or mesenteric adenopathy by size criteria. Aorta and inferior vena cava are normal in size. Miscellaneous: No ventral hernias. PELVIS: Genitourinary: Bladder wall thickness is normal. Miscellaneous: No inguinal hernias or adenopathy. There is suggestion of a right ovarian cyst measu res 2.5 x 2.7 cm in size. Uterus and left ovaries show no gross abnormality. Bones: No suspicious bony lesions. No vertebral body compression fractures. IMPRESSION: 1. Inflammatory changes adjacent to the head and uncinate process of pancreas concerning for acute pa ncreatitis involving head and uncinate process. Atrophic appearing body and tail of pancreas with sca ttered parenchymal calcifications suggestive of sequela from prior pancreatitis. Dilated pancreatic d uct measures up to 9 mm in diameter with suggestion of pancreatic duct stones. No discrete drainable peripancreatic fluid collection. 2. Common bile duct size measures at upper limits of normal. No, bile duct stone is seen. No intrahep atic biliary ductal dilatation. Hepatic steatosis. Normal-appearing gallbladder. 3. No bowel obstruction or abnormal bowel wall thickening. No free fluid of free air. No abscess dipak ection. 4. Suggestion of right over area cyst as above. Reviewed by: Channing Jackson MD on 10/26/2022 4:43 PM PST Approved by: Channing Jackson MD on 10/26/2022 4:43 PM PST Station ID: [id number]
[2022-10-26] MEDS ORDERED: iohexoL-300 100 ML VIAL IVP ONE (16:54)
[2022-10-26] MEDS ORDERED: DIATRIZOATE MEGLU/DIATRIZO SOD 30 ML BOTTLE PO ONE (16:55)
== END 2022-10-26 14:54 | disposition home or self-care (01) ==
LOC: DI 14:53
PROVIDERS: ATTEND Physician Assistant
DX: K86.89 Other specified diseases of pancreas (principal); K86.0 Alcohol-induced chronic pancreatitis; R10.13 Epigastric pain; K76.0 Fatty (change of) liver, not elsewhere classified
CPT/HCPCS: 74177; Q9963; Q9967

== ENCOUNTER 2022-11-10 07:15 | Emergency (ER) | payer MEDICAID ==
[2022-11-10 07:38] LABS: BASOPHILS % (AUTO) 0.6 %; EOSINOPHILS % (AUTO) 0.8 %; HCT - HEMATOCRIT 26.3 % (37.0-47.0); LYMPHOCYTES % (AUTO) 31.8 %; MEAN CORPUSCULAR HEMOGLOBIN 33.3 pg (27.0-31.0); MEAN CORPUSCULAR HGB CONC 34.2 g/dL (32.0-36.0); MEAN CORPUSCULAR VOLUME 97.4 fL (81.0-99.0); MEAN PLATELET VOLUME 8.4 fL (7.9-10.8); MONOCYTES % (AUTO) 5.6 %; NEUTROPHILS % (AUTO) 60.7 %; PLT - PLATELET COUNT 528 10^3/uL (130-450); RED CELL DISTRIBUTION WIDTH 17.2 % (12.0-15.0); WHITE BLOOD COUNT 15.9 x10^3/uL (4.8-10.8)
[2022-11-10 07:41] LABS: ABNORMAL LYMPHS % (MANUAL) 0 %; BAND NEUTROPHILS % (MANUAL) 0 %
--- NOTE | 2022-11-10 07:42 | ED Physician Documentation ---
PD HPI ABD PAIN - Stated complaint Stated Complaint: PAIN,FEMALE - Chief complaint Chief Complaint: Abd Pain - History obtained from History obtained from: Patient - History of Present Illness Timing - onset: How many days ago (2) Timing - duration: Days (2) Timing - details: Gradual onset (has had abd pains intermittently and someewhat chronically for several months. current symptoms are worse the past 2 days. Has not nausea, and soft/slightly watery stool with red/purple clots swirled in. No prior GI bleeding episodes in the past. PCP is referring pt to GI.), Still present, Waxing and waning Quality: Cramping, Aching, Pain Location: Periumbilical Radiation: No: Chest, Lower back Improved by: Laying still. No: Eating Worsened by: Eating Associated symptoms: Nausea, Hematochezia (since last night, has noted red blood swirled with the stool. no melena. no mucous.). No: Fever, Vomiting, Diarrhea (loose stools but not watery.) Similar symptoms before: Diagnosis (has had bile duct obstruction with sludge/small stones and one noted in pancreatic duct causing pancreatic inflammation and chronic pancreatitis. Seen by dr. christianson, gi at [facility] with ercp, clearing of the cbd, sphnicterotomy, but unable to retrieve the pancreatic duct stone.) Recently seen: Surgery Review of Systems Constitutional: reports: Myalgias. denies: Fever, Chills Nose: denies: Rhinorrhea / runny nose, Congestion Throat: denies: Sore throat Respiratory: denies: Cough GI: reports: Abdominal Pain, Nausea, Bloody / black stool. 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), Other : None HEENT: Other Psych: Depression, Anxiety Musculoskeletal: Chronic back pain, Other Derm: None - Past Surgical History Past Surgical History: Yes /SECURITIES ATTORNEY: Other - Present Medications Home Medications: Ambulatory Orders Medication Instructions Recorded Confirmed Albuterol Sulfate [Albuterol 2 puffs IH Q4H PRN 05/06/20 05/25/22 Sulfate Hfa] Ibuprofen [Motrin] 800 mg PO DAILY PRN 11/29/21 05/25/22 Pnv No.121/Iron/Folic Acid 1 each PO DAILY #30 tablet 12/01/21 05/25/22 [ Multivitamin Tablet] Thiamine [Vitamin B-1] 100 mg PO DAILY #30 tablet 12/01/21 05/25/22 Omeprazole 40 mg PO DAILY #30 cap 01/01/22 05/25/22 HYDROcod/ACETAM 5/325 [[place] 5/325] 1 - 2 tab PO Q6H PRN #10 tablet 05/25/22 Lipase/Protease/Amylase [Creon Dr 1 each PO AC #90 cap.sr 05/25/22 24,000 Unit Capsule] Ondansetron Odt [Zofran Odt] 4 mg TL Q6H PRN 05/25/22 05/25/22 cephALEXin [Keflex] 500 mg PO Q6H #28 cap 05/25/22 Clotrimazole Alexx [Clotrimazole] 10 mg MM 5XD #60 lozenge 06/13/22 Ondansetron Odt [Zofran] 4 mg TL Q6H PRN #10 tablet 06/13/22 Potassium Chloride [K-Dur] 20 meq PO DAILY #5 tablet 06/13/22 Promethazine [Phenergan] 25 mg PO Q6H PRN #10 tab 06/13/22 HYDROcod/ACETAM 5/325 [[place] 5/325] 1 - 2 ea PO Q6H PRN #14 tablet 09/13/22 methocarbamoL [Robaxin] 500 mg PO Q6H PRN #20 tablet 09/13/22 Amox/Clav 875/125 [Augmentin] 1 each PO Q12H 5 Days #10 tablet 11/10/22 HYDROcod/ACETAM 5/325 [[place] 5/325] 1 ea PO Q6H PRN #18 tablet 11/10/22 L.acid/L.casei/B.bif/B.cristiano/Fos 1 each PO TID 7 Days #20 cap 11/10/22 [Probiotic Blend Capsule] Ondansetron Odt [Zofran] 4 mg TL Q6H PRN #20 tablet 11/10/22 dexAMETHasone [Decadron] 4 mg PO DAILY #5 tablet 11/10/22 - Allergies Allergies/Adverse Reactions: Allergies Allergy/AdvReac Type Severity Reaction Status Date / Time No Known Drug Allergies Allergy Verified 11/10/22 07:22 - Social History Does the pt smoke?: Yes Smoking Status: Current every day smoker Does the pt drink ETOH?: Yes Does the pt have substance abuse?: No - Immunizations Immunizations are current?: Yes Immunizations: TDAP >10years/unknown - POLST Patient has POLST: No POLST Status: Full Code PD ED PE NORMAL - Vitals Vital signs reviewed: Yes - General General: Alert and oriented X 3, Well developed/nourished, Other (appears in steven n and also tearful.) - HEENT HEENT: PERRL (nonicteric) - Neck Neck: Supple, no meningeal sign, No adenopathy - Cardiac Cardiac: No: RRR (tachycardic but regular. ) Results - Vitals Vitals: Vital Signs - 24 hr 11/10/22 11/10/22 11/10/22 07:20 09:22 10:40 Temperature 36.2 C L 36.6 C Heart Rate 143 H 90 70 Respiratory 20 16 16 Rate Blood Pressure 133/89 H 134/82 H 132/78 H O2 Saturation 100 100 100 Oxygen O2 Source Room air - Labs Labs: Microbiology 11/10/22 08:15 Occult Blood - Final Stool Laboratory Tests 11/10/22 11/10/22 11/10/22 07:29 07:29 07:29 WBC 15.9 H RBC 2.70 L Hgb 9.0 L Hct 26.3 L MCV 97.4 MCH 33.3 H MCHC 34.2 RDW 17.2 H Plt Count 528 H MPV 8.4 Neut # (Auto) Not Reportable Lymph # (Auto) Not Reportable [place] # (Auto) Not Reportable Eos # (Auto) Not Reportable Baso # (Auto) Not Reportable Absolute Nucleated RBC Not Reportable Total Counted 100 Band Neuts % (Manual) 0 Abnorm Lymph % (Manual) 0 Nucleated RBC % Not Reportable Neutrophils # (Manual) 9.2 H Lymphocytes # (Manual) 5.4 H Monocytes # (Manual) 1.0 Eosinophils # (Manual) 0.3 Basophils # (Manual) 0.0 Differential Comment MANUAL DIFFERENTIAL Platelet Estimate INCREASED (>450,000) Platelet Morphology NORMAL APPEARANCE RBC Morph Micro Appear 1+ ANISOCYTOSIS ESR 35 H Sodium 139 Potassium 4.0 Chloride 107 Carbon Dioxide 21 Anion Gap 11.0 BUN 15 Creatinine 0.6 Estimated GFR (MDRD) 108 Glucose 133 H Calcium 8.6 Total Bilirubin 0.5 AST 26 ALT 26 Alkaline Phosphatase 182 H C-Reactive Protein Total Protein 6.0 L Albumin 2.6 L Globulin 3.4 Albumin/Globulin Ratio 0.8 L Lipase 34 Urine Color Urine Clarity Urine pH Ur Specific [place] Urine Protein Urine Glucose (UA) Urine Ketones Urine Occult Blood Urine Nitrite Urine Bilirubin Urine Urobilinogen Ur Leukocyte Esterase Urine RBC Urine WBC Ur Squamous Epith Cells Urine Bacteria Urine Mucus Ur Microscopic Review Urine Culture Comments Stool Leukocytes, Qual 11/10/22 11/10/22 11/10/22 07:29 08:15 08:15 WBC RBC Hgb Hct MCV MCH MCHC RDW Plt Count MPV Neut # (Auto) Lymph # (Auto) [place] # (Auto) Eos # (Auto) Baso # (Auto) Absolute Nucleated RBC Total Counted Band Neuts % (Manual) Abnorm Lymph % (Manual) Nucleated RBC % Neutrophils # (Manual) Lymphocytes # (Manual) Monocytes # (Manual) Eosinophils # (Manual) Basophils # (Manual) Differential Comment Platelet Estimate Platelet Morphology RBC Morph Micro Appear ESR Sodium Potassium Chloride Carbon Dioxide Anion Gap BUN Creatinine Estimated GFR (MDRD) Glucose Calcium Total Bilirubin AST ALT Alkaline Phosphatase C-Reactive Protein < 1.0 Total Protein Albumin Globulin Albumin/Globulin Ratio Lipase Urine Color YELLOW Urine Clarity HAZY Urine pH 5.5 Ur Specific [place] >=1.030 H Urine Protein NEGATIVE Urine Glucose (UA) NEGATIVE Urine Ketones NEGATIVE Urine Occult Blood NEGATIVE Urine Nitrite POSITIVE H Urine Bilirubin NEGATIVE Urine Urobilinogen 0.2 (NORMAL) Ur Leukocyte Esterase NEGATIVE Urine RBC 0-5 Urine WBC 0-3 Ur Squamous Epith Cells FEW Squamous Urine Bacteria Moderate H Urine Mucus Few Strands Ur Microscopic Review INDICATED Urine Culture Comments INDICATED Stool Leukocytes, Qual POSITIVE PD Medical Decision Making - ED course Complexity details: reviewed old records (the patient was able to pull up the procedure note in her mychart, and i read the procedure and findings report from the eRCP. ), reviewed results, considered differential (has recurrent RUQ pain and has had chronic pancreatitis and fatty liver due to ductal stones. Had ERCP with attempt to clear it, and did have clearing of the cBd. this was 2 weeks ago, and so consider complication of that such as bleeding from the site, seroma/hematoma, abscess/infection. can get CT), d/w patient Reviewed Lab Results: CT abd did not show any sequelae that would be from the procedure. Chronic pancreatitis from the persistent pancreatic duct stone. Was tachycardic on presentation and this improved with pain improvement. it seemed regular. Drug Therapy Requiring Monitoring for Toxicity: patient had IV started and was given medications for nausea, pain. Toradol, Dilaudid, Inapsine given iv in standard doses. No ill side effects from these and she did have reasonable though incomplete improvement in the pain. ED course: She should contact her GI in [place] PA-C. Departure - Departure Disposition: Home, Self Care Clinical Impression: GI bleeding, Colitis, Acute on chronic pancreatitis, Pancreatic duct calculus Condition: Stable Record reviewed to determine appropriate education?: Yes Follow-Up: Shelia Barajas ARNP [Primary Care Provider] - Rosa Maria Lynne PA-C [Physician No Access] - Prescriptions: Amox/Clav 875/125 [Augmentin] 1 each PO Q12H 5 Days #10 tablet dexAMETHasone [Decadron] 4 mg PO DAILY #5 tablet HYDROcod/ACETAM 5/325 [[place] 5/325] 1 ea PO Q6H PRN #18 tablet PRN Reason: Pain L.acid/L.casei/B.bif/B.cristiano/Fos [Probiotic Blend Capsule] 1 each PO TID 7 Days #20 cap Ondansetron Odt [Zofran] 4 mg TL Q6H PRN #20 tablet PRN Reason: Nausea / Vomiting Comments: Your CT scan shows a persistence of the pancreatic duct stone and some inflammation of the pancreas so appearance of acute on chronic pancreatitis. Your liver enzymes and lipase/pancreas enzymes are actually normal. You do have a slightly elevated white count which has been that way. Inflammation markers are also elevated. The upper abdominal pain presume is the inflammation of the pancreas. Continue with your pancreatic enzymes and for the next couple of days to clear liquid diet. Being contact with Ms. Parrish your bank courier to discuss further treatment. The CT scan does not show any obvious complications related to the ERCP. No signs of locals fluid collections or abscess etc. This should not necessarily be given new blood in your stool. I presume therefore you have some element of inflammation of the colon/colitis. We can treat this with some antibiotics as well as steroid anti-inflammatory and probiotics. Your blood count is somewhat low/anemic but not too far off from your usual anemia. I would anticipate cessation of the blood in your stool over the next couple of days. Nausea and pain medicine as needed. I sent your prescriptions to your preferred pharmacy. Return if worsening. Discharge Date/Time: 11/10/22 10:50
[2022-11-10 07:47] LABS: ALBUMIN 2.6 g/dL (3.2-5.5); ALBUMIN/GLOBULIN RATIO 0.8 (1.0-2.2); BILIRUBIN,TOTAL 0.5 mg/dL (0.2-1.0); CALCIUM 8.6 mg/dL (8.5-10.3); CREATININE 0.6 mg/dL (0.4-1.0)
[2022-11-10 08:02] LABS: EOSINOPHILS # (MANUAL) 0.3 10^3/uL (0-0.7); LYMPHOCYTES # (MANUAL) 5.4 10^3/uL (1.5-3.5); LYMPHOCYTES % (MANUAL) 34 %; NEUTROPHILS # (MANUAL) 9.2 10^3/uL (1.5-6.6)
[2022-11-10 08:10] LABS: PLATELET ESTIMATE, MANUAL INCREASED (>450,000) (NORMAL); PLATELET MORPHOLOGY NORMAL APPEARANCE (NORMAL); RBC MORPHOLOGY (MULTIPLE) 1+ ANISOCYTOSIS (NORMAL)
[2022-11-10 08:11] LABS: DIFFERENTIAL COMMENT MANUAL DIFFERENTIAL
[2022-11-10 08:23] LABS: BILIRUBIN,URINE NEGATIVE (NEGATIVE); GLUCOSE, URINE (UA) NEGATIVE (NEGATIVE); KETONES,URINE (UA) NEGATIVE (NEGATIVE); LEUKOCYTE ESTERASE, URINE NEGATIVE (NEGATIVE); NITRITE,URINE POSITIVE (NEGATIVE); OCCULT BLOOD,URINE NEGATIVE (NEGATIVE); PH,URINE 5.5 PH (5.0-7.5); PROTEIN,URINE NEGATIVE (NEGATIVE); UROBILINOGEN,URINE 0.2 (NORMAL) E.U./dL (NORMAL)
[2022-11-10 08:25] LABS: CLARITY,URINE HAZY (CLEAR)
[2022-11-10] MEDS: SODIUM CHLORIDE 0.9% 1,000 ML IV STA (08:28)
[2022-11-10] MEDS: KETOROLAC 15 MG/ML VIAL IVP STA (08:30)
[2022-11-10] MEDS: DROPERIDOL 5 MG/2 ML VIAL IVP STA (08:31)
[2022-11-10] MEDS: HYDROmorphone 1 MG/ML CARPUJECT IVP STA (08:32)
[2022-11-10 08:35] LABS: BACTERIA,URINE Moderate /HPF (None Seen); MUCUS,URINE Few Strands; RBC,URINE 0-5 /HPF (0-5); SQUAMOUS EPITHELIAL CELL,UR FEW Squamous (<= Few); WBC,URINE 0-3 /HPF (0-5)
[2022-11-10] MEDS ORDERED: iohexoL-300 100 ML VIAL ONE (09:05)
[2022-11-10] MEDS: iohexoL-300 100 ML VIAL IVP ONE (09:34)
--- NOTE | 2022-11-10 10:04 | CT Report ---
PROCEDURE: ABDOMEN/PELVIS W INDICATIONS: upper abd pain, chronic, but ERCP 2 weeks ago CONTRAST: 100ml Omnipaque 300 TECHNIQUE: After the administration of intravenous contrast, 5 mm thick sections acquired from the diaphragms to the symphysis. 5 mm thick coronal and sagittal reformats were acquired. For radiation dose reducti on, the following was used: automated exposure control, adjustment of mA and/or kV according to ascencion ent size. COMPARISON: 10/26/2022, 11/28/2021. FINDINGS: Image quality: Excellent. ABDOMEN: Lung bases: Lung bases are clear. Heart size is normal. Solid organs: Liver and spleen are normal in size and enhancement. In November,, there was moderat e to severe diffuse hepatic steatosis. This has resolved. Gallbladder is somewhat distended. No galls tones are identified. No gallbladder wall thickening. Biliary system is non dilated. Again noted are diffuse changes of chronic pancreatitis with extensive pancreatic calcifications and a significantly dilated pancreatic duct. There is a prominent stone in the pancreatic duct at the level of the pancr eatic head. This was also present in the most recent prior study. The area of the pancreatic head and uncinate process is enlarged, as was the case in October,, but not in November,. Findings mo st likely represent acute on chronic pancreatitis. No adrenal nodules. Kidneys demonstrate normal si ze and enhancement, without hydronephrosis. Peritoneum and bowel: Bowel loops demonstrate normal wall thickness and caliber. No free fluid or a ir. Nodes and vessels: No retroperitoneal or mesenteric adenopathy by size criteria. Aorta and inferior vena cava are normal in size. Miscellaneous: No ventral hernias. PELVIS: Genitourinary: Bladder wall thickness is normal. Miscellaneous: No inguinal hernias or adenopathy. Bones: No suspicious bony lesions. No vertebral body compression fractures. IMPRESSION: 1. Findings are consistent with acute on chronic pancreatitis. 2. Among other things, there is a prominent pancreatic duct stone. This was present in October, , as well. 3. Distended gallbladder. No gallstones or gallbladder wall thickening. Reviewed by: Uriah Costa MD on 11/10/2022 10:03 AM PST Approved by: Uriah Costa MD on 11/10/2022 10:03 AM PST Station ID: [id number]
[2022-11-10] MEDS ORDERED: CHERRY SYRUP 10 ML UDC PO ONE (10:40)
[2022-11-10] MEDS: AMOX/CLAV 875 MG/125 MG TABLET PO STA (10:41)
[2022-11-10 10:43] VITALS: BP 132/78
[2022-11-10] MEDS: DEXAMETHASONE 10 MG/ML VIAL IVP STA (10:45)
== END 2022-11-10 10:50 | disposition home or self-care (01) ==
LOC: ED 07:15
DX: K92.2 Gastrointestinal hemorrhage, unspecified (principal); K85.90 Acute pancreatitis without necrosis or infection, unspecified; K86.89 Other specified diseases of pancreas; I10 Essential (primary) hypertension; F17.200 Nicotine dependence, unspecified, uncomplicated; Z79.899 Other long term (current) drug therapy
CPT/HCPCS: 36415; 74177; 80053; 81001; 82272; 83630; 83690; 83993; 85025; 85651; 86140; 87086; 87181; 96361; 96374; 96375; 99284; 99285; A9270; J1170; Q9967; 81003

== ENCOUNTER 2022-11-18 21:19 | Emergency (ER) | payer MEDICAID ==
[2022-11-18 21:55] VITALS: BP 120/80
== END 2022-11-18 23:30 | disposition left against medical advice (07) ==
LOC: ED 21:19
DX: Z53.21 Procedure and treatment not carried out due to patient leaving prior to being seen by health care provider (principal)

== ENCOUNTER 2022-11-20 15:39 | Emergency (ER) | payer MEDICAID ==
--- NOTE | 2022-11-20 16:03 | ED Physician Documentation ---
PD HPI ABD PAIN - Stated complaint Stated Complaint: BACK PX,RT SIDE PX - Chief complaint Chief Complaint: Abd Pain - History obtained from History obtained from: Patient - History of Present Illness Quality: Aching, Sharp Location: RUQ Radiation: Right flank Improved by: Other (Nothing) Worsened by: Moving, Palpation Associated symptoms: Nausea. No: Fever, Vomiting, Hematemesis, Diarrhea, Constipation, Dysuria, Hematuria - Additional information Additional information: Patient is a 47-year-old female presents the emergency department with ongoing right-sided abdominal pain. This is a chronic ongoing condition. She has had an ERCP and still has 2 stones in her pancreatic duct. She is followed by GI at [facility]. 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 She states he has been unable to sisal picker any pain medication and is requesting pain control. No fevers. No vomiting. Nothing makes it better or worse. Had a CT scan about 10 days ago. She states that she had dark stools about 10 days ago as well, but these have resolved. Does not have any further bleeding. Has never had a blood transfusion. 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), Other : None HEENT: Other Psych: Depression, Anxiety Musculoskeletal: Chronic back pain, Other Derm: None - Past Surgical History Past Surgical History: Yes /FLAVORING MACHINE OPERATOR: Other - Present Medications Home Medications: Ambulatory Orders Medication Instructions Recorded Confirmed Albuterol Sulfate [Albuterol 2 puffs IH Q4H PRN 05/06/20 05/25/22 Sulfate Hfa] Ibuprofen [Motrin] 800 mg PO DAILY PRN 11/29/21 05/25/22 Pnv No.121/Iron/Folic Acid 1 each PO DAILY #30 tablet 12/01/21 05/25/22 [ Multivitamin Tablet] Thiamine [Vitamin B-1] 100 mg PO DAILY #30 tablet 12/01/21 05/25/22 Omeprazole 40 mg PO DAILY #30 cap 01/01/22 05/25/22 HYDROcod/ACETAM 5/325 [[place] 5/325] 1 - 2 tab PO Q6H PRN #10 tablet 05/25/22 Lipase/Protease/Amylase [Creon Dr 1 each PO AC #90 cap.sr 05/25/22 24,000 Unit Capsule] Ondansetron Odt [Zofran Odt] 4 mg TL Q6H PRN 05/25/22 05/25/22 cephALEXin [Keflex] 500 mg PO Q6H #28 cap 05/25/22 Clotrimazole Alexx [Clotrimazole] 10 mg MM 5XD #60 lozenge 06/13/22 Ondansetron Odt [Zofran] 4 mg TL Q6H PRN #10 tablet 06/13/22 Potassium Chloride [K-Dur] 20 meq PO DAILY #5 tablet 06/13/22 Promethazine [Phenergan] 25 mg PO Q6H PRN #10 tab 06/13/22 HYDROcod/ACETAM 5/325 [[place] 5/325] 1 - 2 ea PO Q6H PRN #14 tablet 09/13/22 methocarbamoL [Robaxin] 500 mg PO Q6H PRN #20 tablet 09/13/22 Amox/Clav 875/125 [Augmentin] 1 each PO Q12H 5 Days #10 tablet 11/10/22 HYDROcod/ACETAM 5/325 [[place] 5/325] 1 ea PO Q6H PRN #18 tablet 11/10/22 L.acid/L.casei/B.bif/B.cristiano/Fos 1 each PO TID 7 Days #20 cap 11/10/22 [Probiotic Blend Capsule] Ondansetron Odt [Zofran] 4 mg TL Q6H PRN #20 tablet 11/10/22 dexAMETHasone [Decadron] 4 mg PO DAILY #5 tablet 11/10/22 - Allergies Allergies/Adverse Reactions: Allergies Allergy/AdvReac Type Severity Reaction Status Date / Time No Known Drug Allergies Allergy Verified 11/18/22 21:54 - Social History Does the pt smoke?: Yes Smoking Status: Current every day smoker Does the pt drink ETOH?: Yes Does the pt have substance abuse?: No - Immunizations Immunizations are current?: Yes Immunizations: TDAP >10years/unknown - POLST Patient has POLST: No POLST Status: Full Code PD ED PE NORMAL - Vitals Vital signs reviewed: Yes - General General: Alert and oriented X 3, No acute distress - HEENT HEENT: PERRL, Moist mucous membranes - Neck Neck: Supple, no meningeal sign - Cardiac Cardiac: RRR, Strong equal pulses - Respiratory Respiratory: No respiratory distress, Clear bilaterally - Abdomen Abdomen: Soft, Non distended, Other (Tender palpation right upper quadrant. Positive Espinal sign. Mild right CVA tenderness. No peritoneal signs otherwise normal abdomen exam) - Rectal Rectal: Pt declined - Derm Derm: Warm and dry - Extremities Extremities: No edema, No calf tenderness / cord - 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 - Psych Psych: Normal mood, Normal affect Results - Vitals Vitals: Vital Signs - 24 hr 11/20/22 11/20/22 15:43 19:55 Temperature 36.8 C 36.6 C Heart Rate 114 H Heart Rate [ 63 Monitoring electrodes] Respiratory 18 16 Rate Blood Pressure 148/104 H Blood Pressure 180/111 H [Right Brachial artery] O2 Saturation 99 100 Oxygen O2 Source Room air - Labs Labs: Laboratory Tests 11/20/22 11/20/22 11/20/22 16:00 16:00 16:08 WBC 17.7 H RBC 2.32 L Hgb 7.3 L Hct 23.2 L MCV 100.0 H MCH 31.5 H MCHC 31.5 L RDW 17.4 H Plt Count 837 H* MPV 7.9 Neut # (Auto) 10.5 H Lymph # (Auto) 5.6 H Custer # (Auto) 1.2 H Eos # (Auto) 0.3 Baso # (Auto) 0.1 Absolute Nucleated RBC 0.02 Band Neuts % (Manual) Not Reportable Abnorm Lymph % (Manual) Not Reportable Nucleated RBC % 0.1 Neutrophils # (Manual) Not Reportable Lymphocytes # (Manual) Not Reportable Monocytes # (Manual) Not Reportable Eosinophils # (Manual) Not Reportable Basophils # (Manual) Not Reportable Differential Comment MANUAL=AUTO DIFF Manual Slide Review Indicated WBC Morphology 1+ SMUDGE CELLS Platelet Estimate INCREASED (>450,000) Platelet Morphology NORMAL APPEARANCE RBC Morph Micro Appear 2+ ACANTHOCYTES PT INR APTT Sodium 136 Potassium 4.0 Chloride 108 Carbon Dioxide 21 Anion Gap 7.0 BUN 8 Creatinine 0.5 Estimated GFR (MDRD) 133 Glucose 143 H Calcium 8.2 L Total Bilirubin 0.2 AST 29 ALT 26 Alkaline Phosphatase 118 Total Protein 5.9 L Albumin 2.7 L Globulin 3.2 Albumin/Globulin Ratio 0.8 L Lipase 118 H Urine Color YELLOW Urine Clarity CLEAR Urine pH 6.0 Ur Specific [place] >=1.030 H Urine Protein NEGATIVE Urine Glucose (UA) NEGATIVE Urine Ketones NEGATIVE Urine Occult Blood NEGATIVE Urine Nitrite NEGATIVE Urine Bilirubin NEGATIVE Urine Urobilinogen 0.2 (NORMAL) Ur Leukocyte Esterase NEGATIVE Ur Microscopic Review NOT INDICATED Urine Culture Comments NOT INDICATED Urine HCG, Qual NEGATIVE Slides for Path Review Indicated Blood Type Antibody Screen Crossmatch IS Only 11/20/22 11/20/22 16:58 16:58 WBC RBC Hgb Hct MCV MCH MCHC RDW Plt Count MPV Neut # (Auto) Lymph # (Auto) [place] # (Auto) Eos # (Auto) Baso # (Auto) Absolute Nucleated RBC Band Neuts % (Manual) Abnorm Lymph % (Manual) Nucleated RBC % Neutrophils # (Manual) Lymphocytes # (Manual) Monocytes # (Manual) Eosinophils # (Manual) Basophils # (Manual) Differential Comment Manual Slide Review WBC Morphology Platelet Estimate Platelet Morphology RBC Morph Micro Appear PT 10.9 INR 1.0 APTT 26.2 Sodium Potassium Chloride Carbon Dioxide Anion Gap BUN Creatinine Estimated GFR (MDRD) Glucose Calcium Total Bilirubin AST ALT Alkaline Phosphatase Total Protein Albumin Globulin Albumin/Globulin Ratio Lipase Urine Color Urine Clarity Urine pH Ur Specific [place] Urine Protein Urine Glucose (UA) Urine Ketones Urine Occult Blood Urine Nitrite Urine Bilirubin Urine Urobilinogen Ur Leukocyte Esterase Ur Microscopic Review Urine Culture Comments Urine HCG, Qual Slides for Path Review Blood Type O NEGATIVE Antibody Screen NEGATIVE Crossmatch IS Only See Detail - Rads (name of study) Right upper quadrant ultrasound Relevant Findings:: Final report received, See rad report CT abdomen pelvis Relevant Findings:: Final report received, See rad report PD Medical Decision Making - ED course Complexity details: reviewed results, re-evaluated patient, considered differential, d/w patient ED course: 47-year-old female with continued abdominal pain and flank pain. Has known stones in her pancreatic duct. She has an elevated white blood cell count. Her platelets are elevated as well. She is anemic. She denies any blood in the stool currently. Given IV Protonix. Her pain is well controlled with IV Dilaudid. Discussed admission to the hospital versus transfer with the patient. She states that she has to be at home with her daughter until she can find someone to watch her, likely tomorrow. The patient did agree to stay tonight for at least a unit of blood. Informed of the risks of leaving including worsening infection, sepsis, . Patient accepts these risks and will liekly sign AMA after the blood transfusion. Patient is signed out to the oncoming emergency department physician awaiting the blood transfusion and reassessment of the patient. Departure - Departure Clinical Impression: Acute on chronic pancreatitis, Pancreatic duct calculus, Thrombocytosis Anemia Qualifiers: Anemia type: unspecified type Qualified Code(s): D64.9 - Anemia, unspecified Abdominal pain Qualifiers: Abdominal location: unspecified location Qualified Code(s): R10.9 - Unspecified abdominal pain Leukocytosis Qualifiers: Leukocytosis type: unspecified Qualified Code(s): D72.829 - Elevated white blood cell count, unspecified Condition: Stable
[2022-11-20 16:07] LABS: BASOPHILS # (AUTO) 0.1 10^3/uL (0.0-0.1); BASOPHILS % (AUTO) 0.5 %; EOSINOPHILS # (AUTO) 0.3 10^3/uL (0.0-0.7); EOSINOPHILS % (AUTO) 1.5 %; HCT - HEMATOCRIT 23.2 % (37.0-47.0); HGB - HEMOGLOBIN 7.3 g/dL (12.0-16.0); LYMPHOCYTES # (AUTO) 5.6 10^3/uL (1.5-3.5); LYMPHOCYTES % (AUTO) 31.5 %; MEAN CORPUSCULAR HEMOGLOBIN 31.5 pg (27.0-31.0); MEAN CORPUSCULAR HGB CONC 31.5 g/dL (32.0-36.0); MEAN PLATELET VOLUME 7.9 fL (7.9-10.8); MONOCYTES # (AUTO) 1.2 10^3/uL (0.0-1.0); MONOCYTES % (AUTO) 6.6 %; NEUTROPHILS # (AUTO) 10.5 10^3/uL (1.5-6.6); NEUTROPHILS % (AUTO) 59.2 %; NRBC ABSOLUTE COUNT (AUTO) 0.02 x10^3/uL; NUCLEATED RED BLOOD CELLS AUTO 0.1 /100WBC; RED BLOOD COUNT 2.32 10^6/uL (4.20-5.40); RED CELL DISTRIBUTION WIDTH 17.4 % (12.0-15.0); WHITE BLOOD COUNT 17.7 x10^3/uL (4.8-10.8)
[2022-11-20 16:13] LABS: PLT - PLATELET COUNT 837 10^3/uL (130-450); SLIDE REVIEW? Indicated
[2022-11-20] MEDS ORDERED: HYDROmorphone 1 MG/ML CARPUJECT IVP STA ×2 (16:17→18:32)
[2022-11-20 16:18] LABS: ALBUMIN 2.7 g/dL (3.2-5.5); ALBUMIN/GLOBULIN RATIO 0.8 (1.0-2.2); BILIRUBIN,TOTAL 0.2 mg/dL (0.2-1.0); CALCIUM 8.2 mg/dL (8.5-10.3); CREATININE 0.5 mg/dL (0.4-1.0); TOTAL PROTEIN 5.9 g/dL (6.7-8.2)
[2022-11-20] MEDS ORDERED: SODIUM CHLORIDE 0.9% 1,000 ML IV STA (16:23)
[2022-11-20 16:25] LABS: BILIRUBIN,URINE NEGATIVE (NEGATIVE); GLUCOSE, URINE (UA) NEGATIVE (NEGATIVE); KETONES,URINE (UA) NEGATIVE (NEGATIVE); LEUKOCYTE ESTERASE, URINE NEGATIVE (NEGATIVE); NITRITE,URINE NEGATIVE (NEGATIVE); OCCULT BLOOD,URINE NEGATIVE (NEGATIVE); PROTEIN,URINE NEGATIVE (NEGATIVE); UROBILINOGEN,URINE 0.2 (NORMAL) E.U./dL (NORMAL)
[2022-11-20 16:28] LABS: CLARITY,URINE CLEAR (CLEAR)
[2022-11-20 16:29] LABS: HCG UR QUAL NEGATIVE
[2022-11-20 16:49] LABS: PLATELET ESTIMATE, MANUAL INCREASED (>450,000) (NORMAL); PLATELET MORPHOLOGY NORMAL APPEARANCE (NORMAL)
[2022-11-20 16:50] LABS: DIFFERENTIAL COMMENT MANUAL=AUTO DIFF; SLIDE SENT FOR PATH REVIEW? Indicated
[2022-11-20] MEDS ORDERED: iohexoL-300 100 ML VIAL ONE (16:53)
[2022-11-20] MEDS ORDERED: iohexoL-300 100 ML VIAL IVP ONE (17:15)
[2022-11-20 17:16] LABS: PT - PROTHROMBIN TIME 10.9 secs (9.9-12.6)
[2022-11-20 17:23] LABS: PARTIAL THROMBOPLASTIN TIME 26.2 secs (24.9-33.3)
--- NOTE | 2022-11-20 18:08 | CT Report ---
PROCEDURE: ABDOMEN/PELVIS W INDICATIONS: RUQ/RLQ abd pain, anemia CONTRAST: 100ml omni 300 TECHNIQUE: After the administration of IV contrast, 5 mm thick sections acquired from the diaphragms to the symp hysis. 5 mm thick coronal and sagittal reformats were acquired. For radiation dose reduction, the f ollowing was used: automated exposure control, adjustment of mA and/or kV according to patient size. COMPARISON: November 10, 2022. October 26, 2022 FINDINGS: Image quality: Excellent. ABDOMEN: Lung bases: Lung bases are clear. Heart size is normal. Solid organs: Liver and spleen are normal in size and enhancement. Gallbladder is hydropic. Biliar y system is non dilated. The pancreas is diffusely edematous and enhances poorly with numerous calcif ications throughout the pancreas. There is dilation of the pancreatic duct with numerous stones near the confluence. Number of calcifications in the degree of ductal dilation is relatively unchanged fro m study November 10.. No adrenal nodules. Kidneys demonstrate normal size and enhancement, without hydro nephrosis. Peritoneum and bowel: Bowel loops demonstrate normal wall thickness and caliber. No free fluid or a ir. Nodes and vessels: No retroperitoneal or mesenteric adenopathy by size criteria. Aorta and inferior vena cava are normal in size. Miscellaneous: No ventral hernias. PELVIS: Genitourinary: Bladder wall thickness is normal. Miscellaneous: No inguinal hernias or adenopathy. Bones: No suspicious bony lesions. No vertebral body compression fractures. IMPRESSION: 1.Acute on chronic pancreatitis. 2.Pancreatic ductal dilation with numerous calcific bodies near the distal duct, relatively unchanged . 3.Stable hydropic gallbladder. Reviewed by: Alber Rivas MD on 11/20/2022 5:07 PM AKDT Approved by: Alber Rivas MD on 11/20/2022 5:07 PM AKDT Station ID: [id number]
[2022-11-20] MEDS ORDERED: PANTOPRAZOLE 40 MG VIAL IVP STA (18:33)
--- NOTE | 2022-11-20 19:11 | Ultrasound Report ---
PROCEDURE: Abdomen Limited INDICATIONS: RUQ abd pain TECHNIQUE: Real-time focused scanning was performed of the abdomen, with image documentation. COMPARISON: CT November 20, 2022. Ultrasound 04/18/2022 FINDINGS: Liver measures 14.7 cm. Diffuse increased echogenicity of the liver. Portal veins are patent with hep atopedal flow. Common hepatic duct measures 4 mm. Common biliary duct measures 9 mm, previously 13.5 mm. Gallbladder is hydropic without stone identified. No pericholecystic fluid or sonographic Espinal's si gn per fugitive investigator. Gallbladder wall measures 2.9 mm. The pancreas is diffusely heterogeneous with numerous echogenicities throughout the head and body. Th e tail is obscured by bowel gas. The pancreatic duct is dilated to 9.1 mm, previously seen at 8 mm. N umerous calcific densities overlie the pancreatic duct with at least 2 measuring 7.5 mm. The right kidney measures 10.6 cm in length with normal morphology. Renal cortex measures 1.5 cm in t hickness. IMPRESSION: 1.Persistently dilated pancreatic duct measuring up to 9 mm with calcific densities consistent with c hronic pancreatitis. 2.Continued slight increase in size of common biliary duct without intrahepatic ductal dilation. Reviewed by: Alber Rivas MD on 11/20/2022 6:10 PM TERESO Approved by: Alber Rivas MD on 11/20/2022 6:10 PM AKMINH Station ID: [id number]
[2022-11-20] MEDS ORDERED: oxyCODONE/ACET 5/325 Prepack 4 PO STA (21:05)
--- NOTE | 2022-11-20 21:06 | ED Physician Documentation ---
ED Addendum - Addendum Addendum: 11/20/22 21:06 Patient received in signout from Dr. Knox pending reevaluation after blood transfusion. Patient was advised She needs admission for further management of her anemia as well as acute on chronic pancreatitis and leukocytosis.However she did inform Dr. Knox that she was not able to stay in the hospital [facility] as she needs to attend to her daughter at home. She did receive 1 unit of PRBCs. Patient still is not wanting to go home. She understands the risks of leaving AGAINST MEDICAL ADVICE which include Ongoing blood loss, infection, sepsis, .She does not appear intoxicated and is able to state clearly the reasons that she is not able to stay as well as the risks of leaving.She does have signs of acute on chronic pancreatitis and states that she does not have any pain medication at home. Therefore I did send the patient with a small amount of narcotic pain medication. Patient is aware that she is welcome to return to the emergency department at any time. Departure - Departure Disposition: 01 Home, Self Care Clinical Impression: Acute on chronic pancreatitis, Pancreatic duct calculus, Thrombocytosis Anemia Qualifiers: Anemia type: unspecified type Qualified Code(s): D64.9 - Anemia, unspecified Abdominal pain Qualifiers: Abdominal location: unspecified location Qualified Code(s): R10.9 - Unspecified abdominal pain Leukocytosis Qualifiers: Leukocytosis type: unspecified Qualified Code(s): D72.829 - Elevated white blood cell count, unspecified Condition: Stable Instructions: ED Anemia Type Not Specified, ED Pancreatitis Prescriptions: Oxycodone HCl/Acetaminophen [Percocet 5-325 mg Tablet] 1 each PO Q6H PRN #10 tablet PRN Reason: pain Comments: We recommended you stay in the hospital [facility] for further management of your anemia and pancreatitis. But we also understand that you have an application at home that you need to attend to. I have sent a small amount of narcotic pain medication to [facility] to help you with your pain until you are able to return to the emergency department for further treatment. Please do not take NSAIDs like ibuprofen or naproxen. Please understand that you are welcome to return to the ER at any time. Please also follow-up with your PCP and home and school visitor Discharge Date/Time: 11/20/22 21:18
[2022-11-20 21:08] VITALS: BP 178/107
[2022-11-23 12:41] LABS: PATHOLOGIST SLIDE COMMENTS SEE SEPARATE REPORT
== END 2022-11-20 21:18 | disposition home or self-care (01) ==
LOC: ED 15:39
DX: K86.1 Other chronic pancreatitis (principal); K86.89 Other specified diseases of pancreas; D75.839 Thrombocytosis, unspecified; D64.9 Anemia, unspecified; D72.829 Elevated white blood cell count, unspecified; I10 Essential (primary) hypertension; F17.200 Nicotine dependence, unspecified, uncomplicated
CPT/HCPCS: 36415; 36430; 74177; 76705; 80053; 81003; 81025; 83690; 85025; 85610; 85730; 86850; 86900; 86901; 86920; 96361; 96374; 96375; 96376; 99284; 99285; J1170; P9016; Q9967; 81001; 87086

== ENCOUNTER 2022-11-21 05:01 | Outpatient (CLI) | payer MEDICAID | END 2022-11-21 05:02 | disposition critical access hospital (66) | LOC: EMS 05:01 | DX: R51.9 Headache, unspecified (principal); R11.2 Nausea with vomiting, unspecified; R10.9 Unspecified abdominal pain | CPT/HCPCS: A0425; A0429; A0999 ==

== ENCOUNTER 2022-11-21 05:05 | Inpatient (IN) | payer MEDICAID ==
[2022-11-21] MEDS ORDERED: SODIUM CHLORIDE 0.9% 1,000 ML IV STA (05:38)
[2022-11-21] MEDS ORDERED: ONDANSETRON 4 MG/2 ML VIAL IVP STA (05:38)
[2022-11-21] MEDS ORDERED: HYDROmorphone 1 MG/ML CARPUJECT IVP STA ×2 (05:38→06:41)
[2022-11-21 05:42] LABS: BASOPHILS # (AUTO) 0.1 10^3/uL (0.0-0.1); BASOPHILS % (AUTO) 0.6 %; EOSINOPHILS # (AUTO) 0.3 10^3/uL (0.0-0.7); EOSINOPHILS % (AUTO) 1.9 %; HCT - HEMATOCRIT 27.6 % (37.0-47.0); HGB - HEMOGLOBIN 8.9 g/dL (12.0-16.0); LYMPHOCYTES # (AUTO) 5.4 10^3/uL (1.5-3.5); LYMPHOCYTES % (AUTO) 34.4 %; MEAN CORPUSCULAR HEMOGLOBIN 31.6 pg (27.0-31.0); MEAN CORPUSCULAR HGB CONC 32.2 g/dL (32.0-36.0); MEAN CORPUSCULAR VOLUME 97.9 fL (81.0-99.0); MEAN PLATELET VOLUME 7.8 fL (7.9-10.8); MONOCYTES % (AUTO) 6.4 %; NEUTROPHILS # (AUTO) 8.8 10^3/uL (1.5-6.6); NRBC ABSOLUTE COUNT (AUTO) 0.03 x10^3/uL; NUCLEATED RED BLOOD CELLS AUTO 0.2 /100WBC; PLT - PLATELET COUNT 723 10^3/uL (130-450); RED BLOOD COUNT 2.82 10^6/uL (4.20-5.40); RED CELL DISTRIBUTION WIDTH 17.4 % (12.0-15.0); WHITE BLOOD COUNT 15.6 x10^3/uL (4.8-10.8)
--- NOTE | 2022-11-21 05:48 | ED Physician Documentation ---
PD HPI ABD PAIN - Stated complaint Stated Complaint: N/V - Chief complaint Chief Complaint: Abd Pain - History obtained from History obtained from: Patient - Additional information Additional information: Patient is a 47-year-old female presenting for evaluation of nausea and vomiting for the past several hours. She has a history of chronic Pancreatitis. She has been sober from alcohol for the past 1 year. She recently had an ERCP in October But there was challenges with cannulation of the pancreatic duct and still has 2 stones in her pancreatic duct. (Gi = ADELINE Lynne at [facility]).She was seen yesterday in the emergency department for ongoing right-sided abdominal pain. She had imaging with CT and ultrasound showing acute on chronic pancreatitis. She was also found to be slightly anemic with a hemoglobin of 7.3. She had had dark stools 10 days prior but these have resolved. She was found to have a leukocytosis. It was recommended that she stay in the hospital for further evaluation but patient had to go home to 10 to a young child.In the middle the night she started having repeated episodes of emesis that she was not able to control. She denies blood in her emesis. She also reports having abdominal pain. Patient had an ultrasound last night IMPRESSION: 1.Persistently dilated pancreatic duct measuring up to 9 mm with calcific densities consistent with chronic pancreatitis. 2.Continued slight increase in size of common biliary duct without intrahepatic ductal dilation. Common bile duct measures 9 mm, previously 13.5 mm.Gallbladder wall measures 2.[address] of the abdomen and pelvis showed IMPRESSION: 1.Acute on chronic pancreatitis. 2.Pancreatic ductal dilation with numerous calcific bodies near the distal duct, relatively unchanged. 3.Stable hydropic gallbladder. Review of Systems Constitutional: denies: Fever Cardiac: denies: Chest pain / pressure Respiratory: denies: Dyspnea GI: reports: Abdominal Pain, Nausea, Vomiting. 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 - Present Medications Home Medications: Ambulatory Orders Medication Instructions Recorded Confirmed Albuterol Sulfate [Albuterol 2 puffs IH Q4H PRN 05/06/20 11/21/22 Sulfate Hfa] Ibuprofen [Motrin] 800 mg PO Q6H PRN 11/29/21 11/21/22 Pnv No.121/Iron/Folic Acid 1 each PO DAILY #30 tablet 12/01/21 11/21/22 [ Multivitamin Tablet] Thiamine [Vitamin B-1] 100 mg PO DAILY #30 tablet 12/01/21 11/21/22 Omeprazole 40 mg PO DAILY #30 cap 01/01/22 11/21/22 Acetaminophen [Tylenol] 1,000 mg PO Q6H PRN 11/21/22 11/21/22 Calcium Carbonate [Tums (Calcium 500 mg PO Q4-6H 11/21/22 11/21/22 Carbonate 500mg)] Colestipol HCl [Colestid] 2 gm PO BID 11/21/22 11/21/22 Lipase/Protease/Amylase [Zenpep Dr 1 cap PO TIDWM 11/21/22 11/21/22 20,000 Unit Capsule] Metoclopramide [Reglan] 10 mg PO TID PRN 11/21/22 11/21/22 Ondansetron Odt [Zofran Odt] 4 mg PO TID PRN 11/21/22 11/21/22 Potassium Chloride [K-Dur] 10 meq PO DAILY 11/21/22 11/21/22 - Allergies Allergies/Adverse Reactions: Allergies Allergy/AdvReac Type Severity Reaction Status Date / Time No Known Drug Allergies Allergy Verified 11/21/22 05:13 - Social History Does the pt smoke?: Yes Smoking Status: Current every day smoker Does the pt drink ETOH?: Yes Does the pt have substance abuse?: No Substance Use and Type: Marijuana, CBD oil / Products - Immunizations Immunizations are current?: Yes Immunizations: TDAP >10years/unknown - POLST Patient has POLST: No POLST Status: Full Code PD ED PE NORMAL - General General: Alert and oriented X 3, No acute distress, Well developed/nourished - HEENT HEENT: Atraumatic - Neck Neck: Supple, no meningeal sign - Cardiac Cardiac: RRR - Respiratory Respiratory: No respiratory distress, Clear bilaterally - Abdomen Abdomen: Normal bowel sounds, Soft, Non distended, Other (Epigastric and B/l upper quadrant (R>L) tenderness to palpation) - Derm Derm: Warm and dry - Neuro Neuro: Normal speech Results - Vitals Vitals: Vital Signs - 24 hr 11/21/22 11/21/22 11/21/22 05:10 05:13 06:32 Temperature 36.6 C Heart Rate 66 71 59 L Respiratory 17 17 14 Rate Blood Pressure 175/107 H 160/94 H 162/95 H O2 Saturation 100 97 100 Oxygen O2 Source Room air - Labs Labs: Laboratory Tests 11/21/22 11/21/22 11/21/22 05:26 05:26 05:26 WBC 15.6 H RBC 2.82 L Hgb 8.9 L Hct 27.6 L MCV 97.9 MCH 31.6 H MCHC 32.2 RDW 17.4 H Plt Count 723 H MPV 7.8 L Neut # (Auto) 8.8 H Lymph # (Auto) 5.4 H [place] # (Auto) 1.0 Eos # (Auto) 0.3 Baso # (Auto) 0.1 Absolute Nucleated RBC 0.03 Nucleated RBC % 0.2 Sodium 137 Potassium 3.0 L Chloride 105 Carbon Dioxide 24 Anion Gap 8.0 BUN 8 Creatinine 0.4 Estimated GFR (MDRD) 173 Glucose 123 H Calcium 8.1 L Magnesium 1.9 Total Bilirubin 0.5 AST 22 ALT 24 Alkaline Phosphatase 119 Total Protein 5.8 L Albumin 2.6 L Globulin 3.2 Albumin/Globulin Ratio 0.8 L Lipase 19 L PD Medical Decision Making - ED course Complexity details: reviewed results, re-evaluated patient, d/w patient Social Determinants of Health: Reports sobriety from ETOH 1 year ED course: 608 - D/W [facility] GI (Dr. Herrera). Reviewed patient's presentations, relevant labs and imaging along with recent history including ERCP with difficulties of cannulating the pancreatic duct.He does not feel that the patient requires transfer at this time Or is an urgent need for procedure. He feels that the patient can be managed medically with IV fluids, pain and nausea medications. Pt is a 47 yo F with chronic pancreatitis presenting with increased pain, N/V. Seen last night for pain and found to have acute on chronic pancreatitis, Hgb 7.3 and WBC 17. She had reported dark stools that resolved 1 week ago - was given 1 U PRBC. Imaging was obtained. She was advised to stay in the hospital but she needed to leave to take care of young child. She returns this morning with uncontrolled N/V despite use of zofran at home. VSS. Repeat labs show improved Hgb to 8.9, improved white count to 15, mild hypokalemia 3.0, lipase 19. Pt has failed trial of outpatient management and is willing to be hospitalized. D/W implementation project coordinator GI at [facility] who feels pt can be managed medically at this time and does not require transfer at this time. D/W with admitting hospitalist, Dr. Steele who will see pt. Departure - Departure Disposition: ED Place in Observation Clinical Impression: Acute on chronic pancreatitis, Hypokalemia, Anemia, Leukocytosis Condition: Stable Discharge Date/Time: 11/21/22 10:10
[2022-11-21 05:53] LABS: ALBUMIN 2.6 g/dL (3.2-5.5); ALBUMIN/GLOBULIN RATIO 0.8 (1.0-2.2); BILIRUBIN,TOTAL 0.5 mg/dL (0.2-1.0); CALCIUM 8.1 mg/dL (8.5-10.3); CREATININE 0.4 mg/dL (0.4-1.0); TOTAL PROTEIN 5.8 g/dL (6.7-8.2)
[2022-11-21] MEDS: POTASSIUM CHLOR 10 MEQ/100 ML 10 MEQ/100 ML BAG IV SCH ×4 (06:03→10:18)
[2022-11-21] MEDS ORDERED: METOCLOPRAMIDE 10 MG/2 ML VIAL IVP STA (06:41)
[2022-11-21] MEDS: SODIUM CHLORIDE 0.9% 1,000 ML IV SCH ×2 (10:18→22:03)
[2022-11-21] MEDS: ENOXAPARIN 40 MG/0.4 ML SYRINGE SUBQ SCH (10:18)
[2022-11-21] MEDS: SODIUM CHLORIDE FLUSH 0.9% 10 ML SYRINGE IVP SCH ×2 (10:19→18:22)
[2022-11-21] MEDS: MORPHINE 2 MG/ML CARPUJECT IVP PRN ×2 (10:23→12:28)
--- NOTE | 2022-11-21 11:36 | PHARMACY PROGRESS NOTE ---
- Best Possible Medication History Admit Date and Time: 11/21/22 0757 Processed by: Pharmacy Medication History completed: Yes Patient Interview: Completed Secondary Source(s): Pharmacy records, Insurance records As the person ultimately responsible for medication therapy, providers are able to order a medication from an existing home medication list in [facility] via the "Reconcile Routine" prior to Confirmation of that medication by arch support maker. Such practice is discouraged except when the physician, in their clinical judgment, deems that a medical need exists for a medication without regard to previous use.
[2022-11-21] MEDS: HYDROmorphone 1 MG/ML CARPUJECT IVP PRN ×5 (13:56→22:48)
[2022-11-21] MEDS: NICOTINE 14 MG PATCH TOP SCH (13:56)
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
[2022-11-21 16:39] LABS: MUDS CUTOFF CONCENTRATIONS CUTOFF CONC BELOW:
[2022-11-21 16:52] LABS: AMPHETAMINE SCREEN,URINE NEGATIVE (NEGATIVE); BARBITURATE SCREEN,UR NEGATIVE (NEGATIVE); BENZODIAZEPINES SCREEN, URINE NEGATIVE (NEGATIVE); COCAINE SCREEN URINE NEGATIVE (NEGATIVE); METHADONE SCREEN, URINE NEGATIVE (NEGATIVE); METHAMPHETAMINES SCREEN, URINE NEGATIVE (NEGATIVE); OPIATE SCREEN, URINE POSITIVE (NEGATIVE); THC CANNABINOID SCREEN, URINE POSITIVE (NEGATIVE); TRICYCLIC ANTIDEPRESSANT,URINE NEGATIVE (NEGATIVE)
[2022-11-21 16:53] LABS: OXYCODONE SCREEN, URINE POSITIVE (NEGATIVE); PROPOXYPHENE SCREEN, URINE NEGATIVE (NEGATIVE)
[2022-11-21] MEDS: ONDANSETRON 4 MG/2 ML VIAL IVP PRN (21:22)
[2022-11-22] MEDS: HYDROmorphone 1 MG/ML CARPUJECT IVP PRN ×10 (00:47→23:52)
[2022-11-22] MEDS: SODIUM CHLORIDE FLUSH 0.9% 10 ML SYRINGE IVP SCH ×4 (00:50→23:52)
[2022-11-22] MEDS: ONDANSETRON 4 MG/2 ML VIAL IVP PRN ×3 (03:12→18:42)
[2022-11-22] MEDS: PROCHLORPERAZINE 10 MG/2 ML VIAL IVP PRN ×3 (04:21→22:40)
[2022-11-22] MEDS: SODIUM CHLORIDE FLUSH 0.9% 10 ML SYRINGE IVP PRN ×2 (07:47→11:50)
[2022-11-22 07:53] LABS: BASOPHILS # (AUTO) 0.1 10^3/uL (0.0-0.1); BASOPHILS % (AUTO) 0.5 %; EOSINOPHILS % (AUTO) 0.3 %; HGB - HEMOGLOBIN 9.2 g/dL (12.0-16.0); LYMPHOCYTES # (AUTO) 2.8 10^3/uL (1.5-3.5); LYMPHOCYTES % (AUTO) 25.6 %; MEAN CORPUSCULAR HEMOGLOBIN 31.8 pg (27.0-31.0); MEAN CORPUSCULAR HGB CONC 32.9 g/dL (32.0-36.0); MEAN CORPUSCULAR VOLUME 96.9 fL (81.0-99.0); MEAN PLATELET VOLUME 7.6 fL (7.9-10.8); MONOCYTES # (AUTO) 0.7 10^3/uL (0.0-1.0); NEUTROPHILS # (AUTO) 7.5 10^3/uL (1.5-6.6); NEUTROPHILS % (AUTO) 67.1 %; PLT - PLATELET COUNT 642 10^3/uL (130-450); RED BLOOD COUNT 2.89 10^6/uL (4.20-5.40); RED CELL DISTRIBUTION WIDTH 17.2 % (12.0-15.0); WHITE BLOOD COUNT 11.1 x10^3/uL (4.8-10.8)
[2022-11-22 08:06] LABS: ALBUMIN 2.7 g/dL (3.2-5.5); ALBUMIN/GLOBULIN RATIO 0.8 (1.0-2.2); BILIRUBIN,TOTAL 0.5 mg/dL (0.2-1.0); CALCIUM 8.1 mg/dL (8.5-10.3); CREATININE 0.4 mg/dL (0.4-1.0); POTASSIUM 3.3 mmol/L (3.5-5.0)
[2022-11-22] MEDS: SODIUM CHLORIDE 0.9% 1,000 ML IV SCH ×2 (08:42→14:04)
[2022-11-22] MEDS: ENOXAPARIN 40 MG/0.4 ML SYRINGE SUBQ SCH (08:45)
[2022-11-22] MEDS: NICOTINE 14 MG PATCH TOP SCH (08:45)
[2022-11-22] MEDS: POTASSIUM CHLOR 10 MEQ/100 ML 10 MEQ/100 ML BAG IV SCH ×4 (13:38→17:43)
--- NOTE | 2022-11-22 17:51 | PROVIDER PROGRESS NOTE ---
Subjective - Prog Note Date Prog Note Date: 11/22/22 Prog Note Time: 17:45 - Subjective Pt reports feeling: No change Subjective: Nausea all day long off-and-on. Waxes and wanes. Had emesis this morning. Pain continues to that she needs IV Dilaudid every 2-3 hours. She denies fever, chills, chest pain. She says that her headache is just as bad as her abdominal pain. The headache is because she has had nothing to eat. Current Medications - Current Medications Current Medications: Active Medications Enoxaparin Sodium (Enoxaparin 40 Mg/0.4 Ml Syringe) 40 mg SUBQ DAILY [facility]LY [facility], [facility] Last Admin: 11/22/22 08:45 Dose: 40 mg Hydromorphone HCl (Hydromorphone 1 Mg/Ml Carpuject) 1 mg IVP Q2HR PRN PRN Reason: Severe Pain (Level 7-10) Last Admin: 11/22/22 16:43 Dose: 1 mg Sodium Chloride (Normal Saline 0.9%) 1,000 mls @ 100 mls/hr IV .Q10H [facility], [facility] Last Admin: 11/22/22 14:04 Dose: Not Given Multivitamins 10 ml/ TRACE ELEMENTS 1 ml/ Amino Acids/Electrolytes/Dextrose 2,011 mls @ 83 mls/hr IV MoWeFr [facility], [facility]; Protocol Fat Emulsion Intravenous (Intralipid 20%) 250 mls @ 21 mls/hr IV 1900 AL Amino Acids/Electrolytes/Dextrose (Clinimix E 4.25%-5% Solution) 2,000 mls @ 83 mls/hr IV SuTuThSa [facility], [facility]; Protocol Nicotine (Nicotine 14 Mg Patch) 1 patch TOP DAILY [facility], [facility] Last Admin: 11/22/22 08:45 Dose: 1 patch Ondansetron HCl (Ondansetron Odt 4 Mg Tablet) 4 mg TL Q6HR PRN PRN Reason: Nausea / Vomiting Ondansetron HCl (Ondansetron 4 Mg/2 Ml Vial) 4 mg IVP Q6HR PRN PRN Reason: Nausea / Vomiting Last Admin: 11/22/22 09:40 Dose: 4 mg Prochlorperazine Edisylate (Prochlorperazine 10 Mg/2 Ml Vial) 10 mg IVP Q6HR PRN PRN Reason: Nausea / Vomiting Last Admin: 11/22/22 11:50 Dose: 10 mg Sodium Chloride (Sodium Chloride Flush 0.9% 10 Ml Syringe) 10 ml IVP PRN PRN PRN Reason: NEEDED PER PROVIDER ORDERS Last Admin: 11/22/22 11:50 Dose: 10 ml Sodium Chloride (Sodium Chloride Flush 0.9% 10 Ml Syringe) 10 ml IVP 010 0,0900,1700 AL Last Admin: 11/22/22 17:43 Dose: 10 ml Albuterol Sulfate [Albuterol Sulfate Hfa] 2 puffs IH Q4H PRN 05/06/20 Ibuprofen [Motrin] 800 mg PO Q6H PRN 11/29/21 Acetaminophen [Tylenol] 1,000 mg PO Q6H PRN 11/21/22 Calcium Carbonate [Tums (Calcium Carbonate 500mg)] 500 mg PO Q4-6H 11/21/22 Colestipol HCl [Colestid] 2 gm PO BID 11/21/22 Lipase/Protease/Amylase [Zenpep Dr 20,000 Unit Capsule] 1 cap PO TIDWM 11/21/22 Metoclopramide [Reglan] 10 mg PO TID PRN 11/21/22 Ondansetron Odt [Zofran Odt] 4 mg PO TID PRN 11/21/22 Potassium Chloride [K-Dur] 10 meq PO DAILY 11/21/22 Objective - Vital Signs/Intake & Output Reviewed Vital Signs: Yes Vital Signs: Vital Signs x48h Temp Pulse Resp BP Pulse Ox 11/22/22 16:00 36.7 C 61 16 177/98 H 100 Intake & Output: Intake & Output 11/19/22 11/20/22 11/21/22 11/22/22 23:59 23:59 23:59 23:59 Intake Total 6854.665 5335 Output Total 50 Balance 3350.626 7620 - Objective General Appearance: positive: Alert, Other (Thin white female, looks very fatigued, alopecia, cachectic) Eyes Bilateral: positive: PERRL, No scleral icterus ENT: positive: Dry mucous membranes (She is being allowed ice chips) Neck: positive: No JVD. negative: Stiff neck Respiratory: positive: No respiratory distress. negative: Wheezes, Rales, Rhonchi Cardiovascular: positive: Regular rate & rhythm Abdomen: positive: Other (Soft. Deep palpation does not reproduce any pain. Hypoactive bowel sounds. No rebound or guarding.) Skin: positive: Warm, Dry, Pallor Extremities: positive: Non-tender, Full ROM Neurologic/Psychiatric: positive: Oriented x3, CN's nml (2-12), Motor nml - Lab Results Fish Bones: 11/22/22 07:48 11/22/22 07:48 Other Labs: Lab Results x24hrs 11/22/22 11/22/22 Range/Units 07:48 07:48 WBC 11.1 H (4.8-10.8) x10^3/uL RBC 2.89 L (4.20-5.40) 10^6/uL Hgb 9.2 L (12.0-16.0) g/dL Hct 28.0 L (37.0-47.0) % MCV 96.9 (81.0-99.0) fL MCH 31.8 H (27.0-31.0) pg MCHC 32.9 (32.0-36.0) g/dL RDW 17.2 H (12.0-15.0) % Plt Count 642 H (130-450) 10^3/uL MPV 7.6 L (7.9-10.8) fL Neut # (Auto) 7.5 H (1.5-6.6) 10^3/uL Lymph # (Auto) 2.8 (1.5-3.5) 10^3/uL [place] # (Auto) 0.7 (0.0-1.0) 10^3/uL Eos # (Auto) 0.0 (0.0-0.7) 10^3/uL Baso # (Auto) 0.1 (0.0-0.1) 10^3/uL Absolute Nucleated RBC 0.00 x10^3/uL Nucleated RBC % 0.0 /100WBC Sodium 135 (135-145) mmol/L Potassium 3.3 L (3.5-5.0) mmol/L Chloride 104 (101-111) mmol/L Carbon Dioxide 23 (21-32) mmol/L Anion Gap 8.0 (6-13) BUN 5 L (6-20) mg/dL Creatinine 0.4 (0.4-1.0) mg/dL Estimated GFR (MDRD) 173 (>89) Glucose 118 H (70-100) mg/dL Calcium 8.1 L (8.5-10.3) mg/dL Total Bilirubin 0.5 (0.2-1.0) mg/dL AST 19 (10-42) IU/L ALT 19 (10-60) IU/L Alkaline Phosphatase 125 H (42-121) IU/L Total Protein 6.0 L (6.7-8.2) g/dL Albumin 2.7 L (3.2-5.5) g/dL Globulin 3.3 (2.1-4.2) g/dL Albumin/Globulin Ratio 0.8 L (1.0-2.2) Lipase 39 (22-51) U/L ABX Reporting Has patient been on IV antibiotics over the past 48 hours?: No Assessment/Plan - Problem List (1) Acute on chronic pancreatitis Impression: With intractable abdominal pain. She continues to have abdominal pain, enough that she is requiring Dilaudid 1 mg every 2-3 hours IV push. Lipase is unremarkable. It was 118 when she was evaluated in the emergency room the day before yesterday, normal at 19 yesterday. And today she is 39. I shared with her her lab values. Explained that the only thing on finding today is a slightly low potassium, and a slightly elevated blood pressure. White cell count was 15.6 yesterday, and 11.1 today but I do not suspect infection. She has no fever. No chills. The main manifestation of her acute phase for her pancreatitis was pain. She continues to have pain requiring extensive doses of IV opioids. She still has nausea, and had emesis this morning she tells me. She still wants us to give her food now even if it is broth. I have carefully explained to her for as long as she is having pain, I must assume that her pancreas is inflamed to the point that she cannot eat. Especially if she is having nausea and vomiting. I would like her pain to be controlled more than Dilaudid 1 mg every 2-3 hours before feeding her. She is concerned about nutrition status and I share her concern since she has lost quite a bit of weight over the last few months with this chronic pancreatitis. She had an unsuccessful ERCP in October. It should be remembered that she should be referred to [facility] in the outpatient setting to have a second ERCP to get the pancreatic duct stone removed. The ER provider who took care of her in the emergency room had a phone conversation with [facility] GI on-call. They did not feel that there was an urgent need to have her transferred for an ERCP. Plan: Continue IV pain medicines in the form of Dilaudid (not morphine) at her request at 1 mg every 2 hours as needed Continue IV or oral disintegrating Zofran 4 mg IV push every 6 hours as needed nausea IV fluids in the form of normal saline at 100 cc an hour for hydration N.p.o. except for ice chips until pain has resolved and nausea and vomiting have resolved PPN to start tonight at 1900 for help with malnutrition (2) Tobacco withdrawal Conclusion/Plan: NicoDerm 14 mg ordered (3) Hypokalemia Conclusion/Plan: She received a potassium rider 40 mEq in the emergency room. That was when she was 3.0. And spite of supplementation she is 3.3 today, and I will give her another 40 mEq potassium rider. (4) Anemia due to poor nutrition Conclusion/Plan: She has been intermittently anemic. 2021, April, she went to 11.7. By July 2022 she was 10.5. September of this year she was 11.1. November 10 she was 9, and 11/20 in the ER she was 7.3. Iron in July 2022 was 46, ferritin was 16.6, TIBC 228 and considered low, percent saturation 20 and transferrin 163. She is not hemolyzing becasue she has within normal LDH November 2021. Platelets are high on admission with a thrombocytosis that I think is reactive. White cell count is also elevated but there is no fever, chills, or positive review of systems for infection. Her main complaint is abdominal pain. Nevertheless pancreatitis can convert to infected pancreas and we will continue to monitor for signs and symptoms of that. I will order iron infusion since she is not able to absorb due to her chronic pancreatitis (5) Hypertension Hypertension is not listed in her past medical history and she does not take any medications for hypertension. CARLOS ALBERTO inhibitors are rarely associated with pancreatitis and as such I will not be giving her that. Will order hydralazine for systolic blood pressures greater than 160, and if she is discharged, and still needs medication, she may be a candidate for either amlodipine or m etoprolol.
[2022-11-22] MEDS ORDERED: hydrALAZINE INJ 20 MG/ML VIAL IVP PRN (17:57)
[2022-11-22] MEDS: FAT EMULSION 20% 250 ML IV SCH (19:22)
[2022-11-22] MEDS: PPN (CLINIMIX E 4.25/5) 2,000 ML with MULTIVITAMIN 10 ML, TRACE ELEMENTS 1 ML IV SCH ×3 (19:22)
[2022-11-23] MEDS: ONDANSETRON 4 MG/2 ML VIAL IVP PRN ×3 (00:52→13:56)
[2022-11-23] MEDS: HYDROmorphone 1 MG/ML CARPUJECT IVP PRN ×9 (01:48→23:15)
[2022-11-23] MEDS: PROCHLORPERAZINE 10 MG/2 ML VIAL IVP PRN ×3 (04:36→18:34)
[2022-11-23 06:26] LABS: BASOPHILS % (AUTO) 0.3 %; EOSINOPHILS % (AUTO) 0.4 %; HCT - HEMATOCRIT 26.9 % (37.0-47.0); HGB - HEMOGLOBIN 8.8 g/dL (12.0-16.0); LYMPHOCYTES # (AUTO) 1.9 10^3/uL (1.5-3.5); LYMPHOCYTES % (AUTO) 16.5 %; MEAN CORPUSCULAR HEMOGLOBIN 31.5 pg (27.0-31.0); MEAN CORPUSCULAR HGB CONC 32.7 g/dL (32.0-36.0); MEAN CORPUSCULAR VOLUME 96.4 fL (81.0-99.0); MEAN PLATELET VOLUME 7.7 fL (7.9-10.8); MONOCYTES # (AUTO) 0.7 10^3/uL (0.0-1.0); MONOCYTES % (AUTO) 6.1 %; NEUTROPHILS # (AUTO) 8.7 10^3/uL (1.5-6.6); NEUTROPHILS % (AUTO) 76.3 %; PLT - PLATELET COUNT 540 10^3/uL (130-450); RED BLOOD COUNT 2.79 10^6/uL (4.20-5.40); RED CELL DISTRIBUTION WIDTH 16.6 % (12.0-15.0); WHITE BLOOD COUNT 11.3 x10^3/uL (4.8-10.8)
[2022-11-23 06:43] LABS: ALBUMIN 2.6 g/dL (3.2-5.5); ALBUMIN/GLOBULIN RATIO 0.8 (1.0-2.2); BILIRUBIN,TOTAL 0.3 mg/dL (0.2-1.0); CALCIUM 8.2 mg/dL (8.5-10.3); CREATININE 0.4 mg/dL (0.4-1.0); PHOSPHORUS 3.7 mg/dL (2.5-4.6); POTASSIUM 3.2 mmol/L (3.5-5.0)
[2022-11-23] MEDS: FERRIC GLUCONATE 125 MG in SODIUM CHLORIDE 0.9% 100ML 100 ML IV SCH (08:55)
[2022-11-23] MEDS: NICOTINE 14 MG PATCH TOP SCH (08:56)
[2022-11-23] MEDS: ENOXAPARIN 40 MG/0.4 ML SYRINGE SUBQ SCH (08:57)
[2022-11-23] MEDS: SODIUM CHLORIDE FLUSH 0.9% 10 ML SYRINGE IVP SCH ×3 (08:57→23:55)
[2022-11-23] MEDS: BUTALB/ACETAM/CAFF 50/325/40MG TABLET PO PRN (16:38)
[2022-11-23] MEDS: SODIUM CHLORIDE FLUSH 0.9% 10 ML SYRINGE IVP PRN ×4 (18:11→23:16)
[2022-11-23] MEDS: POTASSIUM CHLOR 10 MEQ/100 ML 10 MEQ/100 ML BAG IV SCH ×4 (18:11→23:15)
[2022-11-23] MEDS ORDERED: PPN IV SCH (19:00)
[2022-11-23] MEDS: FAT EMULSION 20% 250 ML IV SCH (19:33)
--- NOTE | 2022-11-23 19:52 | PROVIDER PROGRESS NOTE ---
Assessment/Plan - Problem List (1) Acute on chronic pancreatitis Assessment/Plan: She presented with intractable abdominal pain, requiring Dilaudid 1 mg every 2-3 hours IV push. Lipase is unremarkable. It was 118 when she was evaluated in the emergency room the day before yesterday, normal at 19 yesterday. And today she is 39. I shared with her her lab values. Explained that the only thing on finding today is a slightly low potassium, and a slightly elevated blood pressure. White cell count was 15.6 yesterday, and 11.1 today but I do not suspect infection. She has no fever. No chills. The main manifestation of her acute phase for her pancreatitis was pain. She continues to have pain requiring extensive doses of IV opioids. She still has nausea, and had emesis this morning she tells me. She still wants us to give her food now even if it is broth. I have carefully explained to her for as long as she is having pain, I must assume that her pancreas is inflamed to the point that she cannot eat. Especially if she is having nausea and vomiting. I would like her pain to be controlled more than Dilaudid 1 mg every 2-3 hours before feeding her. She is concerned about nutrition status and I share her concern since she has lost quite a bit of weight over the last few months with this chr onic pancreatitis. Plan: Continue IV pain medicines in the form of Dilaudid (not morphine at her request) at 1 mg every 2 hours as needed Continue IV or oral Zofran 4 mg IV prn nausea Because her IV narcotic needs have slightly decreased since yesterday, will start clear liquids for diet today IV fluids in the form of normal saline at 100 cc an hour for hydration, will be decreased as po intake increases Cont PPN for help with malnutrition (2) Pancreatic duct stones She had an unsuccessful ERCP in October. It should be remembered that she should be referred to [facility] in the outpatient setting to have a second ERCP to get the pancreatic duct stone removed. The ER provider who took care of her in the emergency room had a phone conversation with [facility] GI on-call. They did not feel that there was an urgent need to have her transferred for an ERCP. (3) Migraine headache She takes Excedrin Migraine at home. Plan: We will give Fioricet as needed, which has nearly the same ingredients (4) Hypokalemia Conclusion/Plan: Likely due to poor p.o. intake Plan: Replace with IV K riders Follow BMP daily (5) Anemia due to poor nutrition Conclusion/Plan: She has been intermittently anemic. April, she went to 11.7. By July 2022 she was 10.5. September of this year she was 11.1. November 10 she was 9, and 11/20 in the ER she was 7.3. (6) Iron deficiency anemia Iron in July 2022 was 46, ferritin was 16.6, TIBC 228 and considered low, percent saturation 20 and transferrin 163. She is not hemolyzing becasue she has within normal LDH November 2021. Platelets are high on admission with a thrombocytosis that I think is reactive. White cell count is also elevated but there is no fever, chills, or positive review of systems for infection. Her main complaint is abdominal pain. Nevertheless pancreatitis can convert to infected pancreas and we will continue to monitor for signs and symptoms of that. She likely has anemia due to poor nutrition She got iron infusion since she is not able to absorb due to her chronic pancreatitis Plan: She will probably need future iron infusions, when she is not able to absorb oral iron due to her chronic (7) Hypertension Hypertension is not listed in her past medical history and she does not take any medications for hypertension. CARLOS ALBERTO inhibitors are rarely associated with pancreatitis and as such I will not be giving her that. Possibly BP is up due to her pain Plan: Cont hydralazine prn for systolic blood pressures greater than 160, and if she is discharged, and still needs medication, she may be a candidate for either amlodipine or metoprolol. (8) Severe protein calorie malnutrition She has some muscle wasting and loss of subcutaneous fat on her chest and arms. She has weight loss of 25%of her weight in 1 year. Plan: Cont PPN for help with malnutrition until adequate oral intake shown (9) Tobacco withdrawal Conclusion/Plan: NicoDerm 14 mg ordered - Current Meds Current Meds: Current Medications Generic Name Dose Route Start Last Admin Trade Name Freq PRN Reason Stop Dose Admin Acetaminophen/Butalbital/Caffeine 1 tab 11/23/22 14:31 11/23/22 16:38 Butalb/Acetam/Caff 50/325/40mg Tablet PO 1 tab Q4HR PRN Administration HEADACHE Enoxaparin Sodium 40 mg 03/19/23 09:00 11/23/22 08:57 Enoxaparin 40 Mg/0.4 Ml Syringe SUBQ 40 mg DAILY AL Administration Hydromorphone HCl 1 mg 11/21/22 13:40 11/23/22 18:55 Hydromorphone 1 Mg/Ml Carpuject IVP 1 mg Q2HR PRN Administration Severe Pain (Level 7-10) Multivitamins 10 ml/ TRACE 2,011 mls @ 83 mls/hr 11/22/22 19:00 11/22/22 19:22 ELEMENTS 1 ml/ Amino Acids/ IV 83 mls/hr Electrolytes/Dextrose MoWeFr AL Administration Protocol Fat Emulsion Intravenous 250 mls @ 21 mls/hr 11/22/22 19:00 11/23/22 19:33 Intralipid 20% IV 21 mls/hr 1900 AL Administration Amino Acids/Electrolytes/Dextrose 2,000 mls @ 83 mls/hr 11/23/22 19:00 11/23/22 19:34 Clinimix E 4.25%-5% Solution IV 83 mls/hr SuTuThSa [facility] Administration Protocol Ferric Sodium Gluconate 110 mls @ 100 mls/hr 11/23/22 09:00 11/23/22 10:10 Complex 125 mg/ Sodium IV 11/25/22 10:05 Infused Chloride DAILY AL Infusion Potassium Chloride 10 meq in 100 mls @ 100 mls/hr 11/23/22 18:00 11/23/22 18:34 Potassium Chloride IV 11/23/22 21:59 0 mls/hr Q1H AL Infusion Nicotine 1 patch 11/21/22 14:00 11/23/22 08:56 Nicotine 14 Mg Patch TOP 1 patch DAILY AL Administration Ondansetron HCl 4 mg 11/21/22 07:57 11/23/22 13:56 Ondansetron 4 Mg/2 Ml Vial IVP 4 mg Q6HR PRN Administration Nausea / Vomiting Prochlorperazine Edisylate 10 mg 11/22/22 03:45 11/23/22 18:34 Prochlorperazine 10 Mg/2 Ml Vial IVP 10 mg Q6HR PRN Administration Nausea / Vomiting Sodium Chloride 10 ml 11/21/22 07:57 11/23/22 19:34 Sodium Chloride Flush 0.9% 10 Ml Syringe IVP 10 ml PRN PRN Administration NEEDED PER PROVIDER ORDERS Sodium Chloride 10 ml 11/21/22 09:00 11/23/22 16:38 Sodium Chloride Flush 0.9% 10 Ml Syringe IVP 10 ml 0100,0900,1700 [facility] Administration - Lab Result Fish Bone Diagrams: 11/23/22 06:17 11/24/22 09:43 - Additional Planning My Orders: My Active Orders 11/23/22 14:31 Butalb/Acetam/Caff 50/325/40 [Fioricet] 1 tab PO Q4HR PRN 11/23/22 Dinner DIET [Dysphagia - Puree] [DIET] 11/23/22 18:00 Potassium Chlor 10 Meq/100 ml [Potassium Chloride] 10 meq in 100 ml IV Q1H Subjective - Subjective Patient Reports: Feeling Better (Today she had a migraine headache which she gets when her stomach is empty she says. She asked for pain meds because of this, not because of abdominal pain. When she got clear liquids as a trial, it did not cause her abdominal pain. When she got pured diet for dinner, she started to get RUQ pain) Objective Vital Signs: Vital Signs - 24 hr 11/22/22 11/23/22 11/23/22 23:47 08:04 15:43 Temperature 36.7 C 36.8 C 36.8 C Heart Rate [ 65 58 L 72 Brachial] Respiratory 20 16 18 Rate Blood Pressure 156/83 H 152/88 H 139/86 H [Right Brachial artery] O2 Saturation 100 96 98 Oxygen O2 Source Room air I&O (Last 24 Hrs): Intake and Output Totals x24h 11/21/22 11/22/22 11/23/22 23:59 23:59 23:59 Intake Total 5346.295 6185 518.333 Output Total 275 100 Balance 2309.614 4621 418.333 General: Alert, Oriented x3, Other (Cachexia, sunken eyes) HEENT: Mucous membr. moist/pink, Other (Poor dentition) Neck: Supple, No JVD Neuro: Alert, Non Focal Cardiovascular: Regular rate, No murmurs Respiratory: No respiratory distress Abdomen: Normal bowel sounds, Soft, No tenderness Extremities: No clubbing, No edema, No tenderness/swelling - Results Results: Laboratory Results WBC 11.3 x10^3/uL (4.8-10.8) H 11/23/22 06:17 RBC 2.79 10^6/uL (4.20-5.40) L 11/23/22 06:17 Hgb 8.8 g/dL (12.0-16.0) L 11/23/22 06:17 Hct 26.9 % (37.0-47.0) L 11/23/22 06:17 MCV 96.4 fL (81.0-99.0) 11/23/22 06:17 MCH 31.5 pg (27.0-31.0) H 11/23/22 06:17 MCHC 32.7 g/dL (32.0-36.0) 11/23/22 06:17 RDW 16.6 % (12.0-15.0) H 11/23/22 06:17 Plt Count 540 10^3/uL (130-450) H 11/23/22 06:17 MPV 7.7 fL (7.9-10.8) L 11/23/22 06:17 Neut # (Auto) 8.7 10^3/uL (1.5-6.6) H 11/23/22 06:17 Lymph # (Auto) 1.9 10^3/uL (1.5-3.5) 11/23/22 06:17 [place] # (Auto) 0.7 10^3/uL (0.0-1.0) 11/23/22 06:17 Eos # (Auto) 0.0 10^3/uL (0.0-0.7) 11/23/22 06:17 Baso # (Auto) 0.0 10^3/uL (0.0-0.1) 11/23/22 06:17 Absolute Nucleated RBC 0.00 x10^3/uL 11/23/22 06:17 Nucleated RBC % 0.0 /100WBC 11/23/22 06:17 Sodium 135 mmol/L (135-145) 11/23/22 06:17 Potassium 3.2 mmol/L (3.5-5.0) L 11/23/22 06:17 Chloride 100 mmol/L (101-111) L 11/23/22 06:17 Carbon Dioxide 24 mmol/L (21-32) 11/23/22 06:17 Anion Gap 11.0 (6-13) 11/23/22 06:17 BUN 10 mg/dL (6-20) 11/23/22 06:17 Creatinine 0.4 mg/dL (0.4-1.0) 11/23/22 06:17 Estimated GFR (MDRD) 173 (>89) 11/23/22 06:17 Glucose 189 mg/dL (70-100) H 11/23/22 06:17 Calcium 8.2 mg/dL (8.5-10.3) L 11/23/22 06:17 Phosphorus 3.7 mg/dL (2.5-4.6) 11/23/22 06:17 Magnesium 2.0 mg/dL (1.7-2.8) 11/23/22 06:17 Total Bilirubin 0.3 mg/dL (0.2-1.0) 11/23/22 06:17 AST 18 IU/L (10-42) 11/23/22 06:17 ALT 16 IU/L (10-60) 11/23/22 06:17 Alkaline Phosphatase 108 IU/L (42-121) 11/23/22 06:17 Total Protein 6.0 g/dL (6.7-8.2) L 11/23/22 06:17 Albumin 2.6 g/dL (3.2-5.5) L 11/23/22 06:17 Globulin 3.4 g/dL (2.1-4.2) 11/23/22 06:17 Albumin/Globulin Ratio 0.8 (1.0-2.2) L 11/23/22 06:17 Prealbumin 21 mg/dL (18-45) 11/23/22 06:17 Triglycerides 114 mg/dL (-149) 11/23/22 06:17 Lipase 37 U/L (22-51) 11/23/22 06:17 Urine Opiates Screen POSITIVE (NEGATIVE) H 11/21/22 16:37 Ur Oxycodone Screen POSITIVE (NEGATIVE) H 11/21/22 16:37 Urine Methadone Screen NEGATIVE (NEGATIVE) 11/21/22 16:37 Ur Propoxyphene Screen NEGATIVE (NEGATIVE) 11/21/22 16:37 Ur Barbiturates Screen NEGATIVE (NEGATIVE) 11/21/22 16:37 Ur Tricyclics Screen NEGATIVE (NEGATIVE) 11/21/22 16:37 Ur Phencyclidine Scrn NEGATIVE (NEGATIVE) 11/21/22 16:37 Ur Amphetamine Screen NEGATIVE (NEGATIVE) 11/21/22 16:37 U Methamphetamines Scrn NEGATIVE (NEGATIVE) 11/21/22 16:37 U Benzodiazepines Scrn NEGATIVE (NEGATIVE) 11/21/22 16:37 Urine Cocaine Screen NEGATIVE (NEGATIVE) 11/21/22 16:37 U Cannabinoids Screen POSITIVE (NEGATIVE) H 11/21/22 16:37
[2022-11-24] MEDS: HYDROmorphone 1 MG/ML CARPUJECT IVP PRN ×9 (01:20→23:41)
[2022-11-24] MEDS: BUTALB/ACETAM/CAFF 50/325/40MG TABLET PO PRN (03:59)
[2022-11-24] MEDS: ENOXAPARIN 40 MG/0.4 ML SYRINGE SUBQ SCH (08:18)
[2022-11-24] MEDS: NICOTINE 14 MG PATCH TOP SCH (08:19)
[2022-11-24 09:58] LABS: CALCIUM 8.6 mg/dL (8.5-10.3); CREATININE 0.4 mg/dL (0.4-1.0); POTASSIUM 4.1 mmol/L (3.5-5.0)
[2022-11-24] MEDS: SODIUM CHLORIDE FLUSH 0.9% 10 ML SYRINGE IVP SCH ×3 (10:05→23:41)
[2022-11-24] MEDS: FERRIC GLUCONATE 125 MG in SODIUM CHLORIDE 0.9% 100ML 100 ML IV SCH (10:05)
[2022-11-24] MEDS: ONDANSETRON ODT 4 MG TABLET TL PRN ×2 (12:20→18:33)
--- NOTE | 2022-11-24 17:56 | PROVIDER PROGRESS NOTE ---
Assessment/Plan - Problem List (1) Acute on chronic pancreatitis Assessment/Plan: She presented with intractable abdominal pain, requiring Dilaudid 1 mg every 2-3 hours IV push. Labs were reviewed. Lipase was 118 when she was evaluated in the emergency room then normalized. White cell count improved. She has no fever. No chills. The main manifestation of her acute phase for her pancreatitis was pain requiring IV opioids. She is on iv PPN. Plan: Continue IV pain medicines prn, in the form of Dilaudid (not morphine at her request) at 1 mg but will start to extend dosing interval Continue IV or oral Zofran 4 mg IV prn nausea Because she tolerated clear liquids then pureed for 2 meals, will try soft low fat diet for dinner today IV fluids will be decreased as po intake increases Cont PPN for help with malnutrition (2) Pancreatic duct stones She had an unsuccessful ERCP in October. It should be remembered that she should be referred to [facility] in the outpatient setting to have a second ERCP to get the pancreatic duct stone removed. The ER provider who took care of her in the emergency room had a phone conversation with [facility] GI on-call. They did not feel that there was an urgent need to have her transferred for an ERCP. (3) Hypokalemia Conclusion/Plan: She received a potassium rider 40 mEq in the emergency room. That was when she was 3.0. And spite of supplementation she is 3.3 today, and I will give her another 40 mEq potassium rider. (4) Anemia due to poor nutrition Conclusion/Plan: She has been intermittently anemic. April, she went to 11.7. By July 2022 she was 10.5. September of this year she was 11.1. November 10 she was 9, and 11/20 in the ER she was 7.3. Plan: Following CBC daily (5) Iron deficiency anemia Iron in July 2022 was 46, ferritin was 16.6, TIBC 228 and considered low, pe rcent saturation 20 and transferrin 163. She is not hemolyzing becasue she has within normal LDH November 2021. Platelets are high on admission with a thrombocytosis that I think is reactive. White cell count is also elevated but there is no fever, chills, or positive review of systems for infection. Her main complaint is abdominal pain. Nevertheless pancreatitis can convert to infected pancreas and we will continue to monitor for signs and symptoms of that. She likely has anemia due to poor nutrition She got iron infusion since she is not able to absorb due to her chronic pancreatitis Plan: She will probably need future iron infusions, when she is not able to absorb oral iron due to her chronic (6) Hypertension Hypertension is not listed in her past medical history and she does not take any medications for hypertension. CARLOS ALBERTO inhibitors are rarely associated with pancreatitis and as such I will not be giving her that. Plan: ont hydralazine iv prn for systolic blood pressures greater than 160 (7) Migraine headache Resolved. She takes Excedrin Migraine at home. Plan: We will offer Fioricet as needed, which has nearly the same ingredients. She has also recvd the Dilaudid for this. needs medication, she may be a candidate for either amlodipine or metoprolol. (8) Severe protein calorie malnutrition She has some muscle wasting and loss of subcutaneous fat on her chest and arms. She has weight loss of 25%of her weight in 1 year. Plan: Cont PPN for help with malnutrition (9) Tobacco withdrawal Conclusion/Plan: NicoDerm 14 mg ordered - Current Meds Current Meds: Current Medications Generic Name Dose Route Start Last Admin Trade Name Freq PRN Reason Stop Dose Admin Acetaminophen/Butalbital/Caffeine 1 tab 11/23/22 14:31 11/24/22 03:59 Butalb/Acetam/Caff 50/325/40mg Tablet PO 1 tab Q4HR PRN Administration HEADACHE Enoxaparin Sodium 40 mg 11/21/22 09:00 11/24/22 08:18 Enoxaparin 40 Mg/0.4 Ml Syringe SUBQ 40 mg DAILY AL Administration Hydromorphone HCl 1 mg 11/21/22 13:40 11/24/22 16:34 Hydromorphone 1 Mg/Ml Carpuject IVP 1 mg Q2HR PRN Administration Severe Pain (Level 7-10) Multivitamins 10 ml/ TRACE 2,011 mls @ 83 mls/hr 11/22/22 19:00 11/23/22 19:00 ELEMENTS 1 ml/ Amino Acids/ IV Infused Electrolytes/Dextrose MoWeFr AL Infusion Protocol Fat Emulsion Intravenous 250 mls @ 21 mls/hr 11/22/22 19:00 11/24/22 07:45 Intralipid 20% IV Infused 1900 [facility] Infusion Amino Acids/Electrolytes/Dextrose 2,000 mls @ 83 mls/hr 11/23/22 19:00 11/23/22 22:31 Clinimix E 4.25%-5% Solution [facility]ls[facility] Ferric Sodium Gluconate 110 mls @ 100 mls/hr 11/23/22 09:00 11/24/22 11:11 Complex 125 mg/ Sodium IV 11/25/22 10:05 Infused Chloride DAILY [facility] Infusion Nicotine 1 patch 11/21/22 14:00 11/24/22 08:19 Nicotine 14 Mg Patch TOP 1 patch DAILY AL Administration Ondansetron HCl 4 mg 11/21/22 07:57 11/24/22 12:20 Ondansetron Odt 4 Mg Tablet TL 4 mg Q6HR PRN Administration Nausea / Vomiting Ondansetron HCl 4 mg 11/21/22 07:57 11/23/22 13:56 Ondansetron 4 Mg/2 Ml Vial IVP 4 mg Q6HR PRN Administration Nausea / Vomiting Prochlorperazine Edisylate 10 mg 11/22/22 03:45 11/23/22 18:34 Prochlorperazine 10 Mg/2 Ml Vial IVP 10 mg Q6HR PRN Administration Nausea / Vomiting Sodium Chloride 10 ml 11/21/22 07:57 11/23/22 23:16 Sodium Chloride Flush 0.9% 10 Ml Syringe IVP 10 ml PRN PRN Administration NEEDED PER PROVIDER ORDERS Sodium Chloride 10 ml 11/21/22 09:00 11/24/22 16:37 Sodium Chloride Flush 0.9% 10 Ml Syringe IVP 10 ml 0100,0900,1700 [facility] Administration - Lab Result Fish Bone Diagrams: 11/23/22 06:17 11/24/22 09:43 - Additional Planning My Orders: My Active Orders 11/24/22 Dinner DIET [Low Fat Diet] [DIET] Subjective - Subjective Patient Reports: Abdominal Pain (Less svere abd pain and feels like a fullness in R abd, that she needs to strain to empty her bladder. After urinating, her bladder scan showed 20 cc only.) Objective Vital Signs: Vital Signs - 24 hr 11/24/22 11/24/22 11/24/22 00:00 08:10 14:46 Temperature 37.0 C 36.8 C Heart Rate [ 74 71 65 Brachial] Respiratory 14 20 16 Rate Blood Pressure 131/83 H 162/94 H 154/94 H [Right Brachial artery] O2 Saturation 97 100 100 11/24/22 15:40 Temperature 36.8 C Heart Rate [ 66 Brachial] Respiratory 18 Rate Blood Pressure 147/88 H [Right Brachial artery] O2 Saturation 98 Oxygen O2 Source Room air I&O (Last 24 Hrs): Intake and Output Totals x24h 11/22/22 11/23/22 11/24/22 23:59 23:59 23:59 Intake Total 2183 3468.720 1417.7 Output Total 688 921 7087 Balance 1908 3368.720 17.7 General: Alert, Oriented x3, No acute distress HEENT: Mucous membr. moist/pink, Other (poor dentition, many missing teeth) Neck: Supple, No JVD Neuro: Alert, Non Focal Cardiovascular: Regular rate Respiratory: No respiratory distress Abdomen: Normal bowel sounds, Soft, No tenderness Extremities: No clubbing, No edema, No tenderness/swelling - Results Results: Laboratory Results WBC 11.3 x10^3/uL (4.8-10.8) H 11/23/22 06:17 RBC 2.79 10^6/uL (4.20-5.40) L 11/23/22 06:17 Hgb 8.8 g/dL (12.0-16.0) L 11/23/22 06:17 Hct 26.9 % (37.0-47.0) L 11/23/22 06:17 MCV 96.4 fL (81.0-99.0) 11/23/22 06:17 MCH 31.5 pg (27.0-31.0) H 11/23/22 06:17 MCHC 32.7 g/dL (32.0-36.0) 11/23/22 06:17 RDW 16.6 % (12.0-15.0) H 11/23/22 06:17 Plt Count 540 10^3/uL (130-450) H 11/23/22 06:17 MPV 7.7 fL (7.9-10.8) L 11/23/22 06:17 Neut # (Auto) 8.7 10^3/uL (1.5-6.6) H 11/23/22 06:17 Lymph # (Auto) 1.9 10^3/uL (1.5-3.5) 11/23/22 06:17 [place] # (Auto) 0.7 10^3/uL (0.0-1.0) 11/23/22 06:17 Eos # (Auto) 0.0 10^3/uL (0.0-0.7) 11/23/22 06:17 Baso # (Auto) 0.0 10^3/uL (0.0-0.1) 11/23/22 06:17 Absolute Nucleated RBC 0.00 x10^3/uL 11/23/22 06:17 Nucleated RBC % 0.0 /100WBC 11/23/22 06:17 Sodium 136 mmol/L (135-145) 11/24/22 09:43 Potassium 4.1 mmol/L (3.5-5.0) 11/24/22 09:43 Chloride 103 mmol/L (101-111) 11/24/22 09:43 Carbon Dioxide 25 mmol/L (21-32) 11/24/22 09:43 Anion Gap 8.0 (6-13) 11/24/22 09:43 BUN 11 mg/dL (6-20) 11/24/22 09:43 Creatinine 0.4 mg/dL (0.4-1.0) 11/24/22 09:43 Estimated GFR (MDRD) 173 (>89) 11/24/22 09:43 Glucose 137 mg/dL (70-100) H 11/24/22 09:43 Calcium 8.6 mg/dL (8.5-10.3) 11/24/22 09:43 Phosphorus 3.7 mg/dL (2.5-4.6) 11/23/22 06:17 Magnesium 2.0 mg/dL (1.7-2.8) 11/23/22 06:17 Total Bilirubin 0.3 mg/dL (0.2-1.0) 11/23/22 06:17 AST 18 IU/L (10-42) 11/23/22 06:17 ALT 16 IU/L (10-60) 11/23/22 06:17 Alkaline Phosphatase 108 IU/L (42-121) 11/23/22 06:17 Total Protein 6.0 g/dL (6.7-8.2) L 11/23/22 06:17 Albumin 2.6 g/dL (3.2-5.5) L 11/23/22 06:17 Globulin 3.4 g/dL (2.1-4.2) 11/23/22 06:17 Albumin/Globulin Ratio 0.8 (1.0-2.2) L 11/23/22 06:17 Prealbumin 21 mg/dL (18-45) 11/23/22 06:17 Triglycerides 114 mg/dL (-149) 11/23/22 06:17 Lipase 37 U/L (22-51) 11/23/22 06:17 Urine Opiates Screen POSITIVE (NEGATIVE) H 11/21/22 16:37 Ur Oxycodone Screen POSITIVE (NEGATIVE) H 11/21/22 16:37 Urine Methadone Screen NEGATIVE (NEGATIVE) 11/21/22 16:37 Ur Propoxyphene Screen NEGATIVE (NEGATIVE) 11/21/22 16:37 Ur Barbiturates Screen NEGATIVE (NEGATIVE) 11/21/22 16:37 Ur Tricyclics Screen NEGATIVE (NEGATIVE) 11/21/22 16:37 Ur Phencyclidine Scrn NEGATIVE (NEGATIVE) 11/21/22 16:37 Ur Amphetamine Screen NEGATIVE (NEGATIVE) 11/21/22 16:37 U Methamphetamines Scrn NEGATIVE (NEGATIVE) 11/21/22 16:37 U Benzodiazepines Scrn NEGATIVE (NEGATIVE) 11/21/22 16:37 Urine Cocaine Screen NEGATIVE (NEGATIVE) 11/21/22 16:37 U Cannabinoids Screen POSITIVE (NEGATIVE) H 11/21/22 16:37
[2022-11-24] MEDS ORDERED: BUTALB/ACETAM/CAFF 50/325/40MG TABLET PO PRN (19:00)
[2022-11-24] MEDS: FAT EMULSION 20% 250 ML IV SCH (19:12)
[2022-11-24] MEDS: PPN (CLINIMIX E 4.25/5) 2,000 ML with MULTIVITAMIN 10 ML, TRACE ELEMENTS 1 ML IV SCH ×3 (19:12)
[2022-11-24] MEDS: ACETAMINOPHEN 325 MG TABLET PO PRN (21:15)
[2022-11-25] MEDS: HYDROmorphone 1 MG/ML CARPUJECT IVP PRN ×4 (04:38→21:08)
[2022-11-25 05:53] LABS: ALBUMIN 2.6 g/dL (3.2-5.5); ALBUMIN/GLOBULIN RATIO 0.9 (1.0-2.2); BILIRUBIN,TOTAL 0.3 mg/dL (0.2-1.0); CALCIUM 8.4 mg/dL (8.5-10.3); CREATININE 0.4 mg/dL (0.4-1.0); PHOSPHORUS 4.4 mg/dL (2.5-4.6); POTASSIUM 4.1 mmol/L (3.5-5.0); TOTAL PROTEIN 5.5 g/dL (6.7-8.2)
[2022-11-25] MEDS: ACETAMINOPHEN 325 MG TABLET PO PRN ×2 (06:27→12:23)
[2022-11-25] MEDS: ENOXAPARIN 40 MG/0.4 ML SYRINGE SUBQ SCH (08:58)
[2022-11-25] MEDS: NICOTINE 14 MG PATCH TOP SCH (08:58)
[2022-11-25] MEDS: FERRIC GLUCONATE 125 MG in SODIUM CHLORIDE 0.9% 100ML 100 ML IV SCH (08:58)
[2022-11-25] MEDS: SODIUM CHLORIDE FLUSH 0.9% 10 ML SYRINGE IVP SCH ×2 (08:59→17:19)
[2022-11-25] MEDS: NICOTINE 7 MG PATCH TOP SCH (09:13)
[2022-11-25] MEDS: LIPASE/PROTEASE/AMYLASE CAPSULE PO SCH ×2 (12:23→17:19)
--- NOTE | 2022-11-25 19:31 | PROVIDER PROGRESS NOTE ---
Assessment/Plan - Problem List (1) Acute on chronic pancreatitis Assessment/Plan: She presented with intractable abdominal pain, requiring Dilaudid 1 mg every 2-3 hours IV push. Labs were reviewed. Lipase was 118 when she was evaluated in the emergency room then normalized. White cell count improved. She has no fever. No chills. The main manifestation of her acute phase for her pancreatitis was pain requiring IV opioids. She is on iv PPN. Plan: Because she tolerated soft low fat diet will cont that Will resume her Creon, 30 min before meals Will start to transition to po pain meds: Will order Dilaudid p.o. scheduled at 0200, 0800, 1400, 2200. And will stagger that with Tylenol 1000mg scheduled plus Motrin 600 mg scheduled at 0400, 1000, 1600, 2200. If this schedule works then she can be discharged home to take p.o. pain meds. Continue IV Dilaudid prn 8-10/10 breakthrough pain IV fluids will be decreased even further Stop PPN and iv Lipids today (2) Pancreatic duct stones She had an unsuccessful ERCP in October. It should be remembered that she should be referred to [facility] in the outpatient setting to have a second ERCP to get the pancreatic duct stone removed. The ER provider who took care of her in the emergency room had a phone conversation with [facility] GI on-call. They did not feel that there was an urgent need to have her transferred for an ERCP. (3) Hypokalemia Conclusion/Plan: She received a potassium rider 40 mEq in the emergency room. That was when she was 3.0. And spite of supplementation she is 3.3 today, and I will give her another 40 mEq potassium rider. (4) Anemia due to poor nutrition Conclusion/Plan: She has been intermittently anemic. April, she went to 11.7. By July 2022 she was 10.5. September of this year she was 11.1. November 10 she was 9, and 11/20 in the ER she was 7.3. Plan: Following CBC daily (5) Iron deficiency anemia Iron in July 2022 was 46, ferritin was 16.6, TIBC 228 and considered low, percent saturation 20 and transferrin 163. She is not hemolyzing becasue she has within normal LDH November 2021. Platelets are high on admission with a thrombocytosis that I think is reactive. White cell count is also elevated but there is no fever, chills, or positive review of systems for infection. Her main complaint is abdominal pain. Nevertheless pancreatitis can convert to infected pancreas and we will continue to monitor for signs and symptoms of that. She likely has anemia due to poor nutrition She got iron infusion since she is not able to absorb due to her chronic pancreatitis Plan: She will probably need future iron infusions, when she is not able to absorb oral iron due to her chronic (6) Hypertension Hypertension is not listed in her past medical history and she does not take any medications for hypertension. CARLOS ALBERTO inhibitors are rarely associated with pancreatitis and as such I will not be giving her that. Plan: Cont hydralazine iv prn for systolic blood pressures greater than 160 (7) Migraine headache Resolved. She takes Excedrin Migraine at home. Plan: Pain meds prn (8) Severe protein calorie malnutrition She has some muscle wasting and loss of subcutaneous fat on her chest and arms. She has weight loss of 25%of her weight in 1 year. Plan: We will start weaning down her PPN to stop it as well has her IV fluids, since she is drinking fluids and taking a diet adequately (9) Tobacco withdrawal Conclusion/Plan: NicoDerm 14 mg was decreased to 7 mg 11/25 - Current Meds Current Meds: Current Medications Generic Name Dose Route Start Last Admin Trade Name Freq PRN Reason Stop Dose Admin Lipase/Protease/Amylase 4 cap 11/25/22 12:00 11/25/22 17:19 Lipase/Protease/Amylase Capsule PO 4 cap TIDWM AL Administration Enoxaparin Sodium 40 mg 11/21/22 09:00 11/25/22 08:58 Enoxaparin 40 Mg/0.4 Ml Syringe SUBQ 40 mg DAILY AL Administration Nicotine 1 patch 11/25/22 09:00 11/25/22 09:13 Nicotine 7 Mg Patch TOP 1 patch DAILY AL Administration Ondansetron HCl 4 mg 11/21/22 07:57 11/24/22 18:33 Ondansetron Odt 4 Mg Tablet TL 4 mg Q6HR PRN Administration Nausea / Vomiting Ondansetron HCl 4 mg 11/21/22 07:57 11/23/22 13:56 Ondansetron 4 Mg/2 Ml Vial IVP 4 mg Q6HR PRN Administration Nausea / Vomiting Prochlorperazine Edisylate 10 mg 11/22/22 03:45 11/23/22 18:34 Prochlorperazine 10 Mg/2 Ml Vial IVP 10 mg Q6HR PRN Administration Nausea / Vomiting Sodium Chloride 10 ml 11/21/22 07:57 11/23/22 23:16 Sodium Chloride Flush 0.9% 10 Ml Syringe IVP 10 ml PRN PRN Administration NEEDED PER PROVIDER ORDERS Sodium Chloride 10 ml 11/21/22 09:00 11/25/22 17:19 Sodium Chloride Flush 0.9% 10 Ml Syringe IVP 10 ml 0100,0900,1700 AL Administration - Lab Result Fish Bone Diagrams: 11/23/22 06:17 11/25/22 05:33 - Additional Planning My Orders: My Active Orders 11/25/22 08:59 Miscellaenous Nursing Order [RC] QSHIFT 11/25/22 09:00 Nicotine 7 mg Patch [Nicoderm] 1 patch TOP DAILY 11/25/22 12:00 Lipase/Protease/Amylase [Pancrelipase Dr 5,000/17,000/24,000 Halfway] 4 cap PO TID WM 11/25/22 19:26 HYDROmorphone 1MG CARP [Dilaudid 1Mg Carp] 1 mg IVP Q6HR PRN 11/25/22 20:00 HYDROmorphone [Dilaudid] 2 mg PO 0200,0800,1400,2000 11/25/22 22:00 Acetaminophen [Tylenol] 1,000 mg PO 0400,1000,1600,2200 Ibuprofen [Motrin] 400 mg PO 0400,1000,1600,2200 Subjective - Subjective Patient Reports: Other (Has right upper and right lower quadrant pain when she bends forward, improved when she stretches out her back.) Nursing Reports: Other (She was bladder scanned after urinating to check if the right lower quadrant pain was a full bladder and it only showed 20 cc) Objective Vital Signs: Vital Signs - 24 hr 11/24/22 11/25/22 11/25/22 23:38 08:24 15:35 Temperature 36.9 C 36.7 C 36.4 C L Heart Rate [ 72 73 64 Brachial] Respiratory 16 18 20 Rate Blood Pressure 153/93 H 134/83 H 152/84 H [Right Brachial artery] O2 Saturation 97 99 100 Oxygen O2 Source Room air I&O (Last 24 Hrs): Intake and Output Totals x24h 11/23/22 11/24/22 11/25/22 23:59 23:59 23:59 Intake Total 3468.720 3412.85 1737 Output Total 100 2450 1100 Balance 3368.720 962.85 637 General: Alert, Oriented x3, Other (Cachectic) HEENT: Mucous membr. moist/pink, Other (Poor nutrition, many teeth are missing) Neck: Supple, No JVD Neuro: Alert, Non Focal Respiratory: No respiratory distress Abdomen: Normal bowel sounds, Soft, No tenderness, Other (Firmness in the right upper quadrant and left upper quadrant are noted, possibly her enlarged liver. There is no guarding or rebound. Normal bowel sounds) Extremities: No clubbing, No edema, No tenderness/swelling - Results Results: Laboratory Results WBC 11.3 x10^3/uL (4.8-10.8) H 11/23/22 06:17 RBC 2.79 10^6/uL (4.20-5.40) L 11/23/22 06:17 Hgb 8.8 g/dL (12.0-16.0) L 11/23/22 06:17 Hct 26.9 % (37.0-47.0) L 11/23/22 06:17 MCV 96.4 fL (81.0-99.0) 11/23/22 06:17 MCH 31.5 pg (27.0-31.0) H 11/23/22 06:17 MCHC 32.7 g/dL (32.0-36.0) 11/23/22 06:17 RDW 16.6 % (12.0-15.0) H 11/23/22 06:17 Plt Count 540 10^3/uL (130-450) H 11/23/22 06:17 MPV 7.7 fL (7.9-10.8) L 11/23/22 06:17 Neut # (Auto) 8.7 10^3/uL (1.5-6.6) H 11/23/22 06:17 Lymph # (Auto) 1.9 10^3/uL (1.5-3.5) 11/23/22 06:17 [place] # (Auto) 0.7 10^3/uL (0.0-1.0) 11/23/22 06:17 Eos # (Auto) 0.0 10^3/uL (0.0-0.7) 11/23/22 06:17 Baso # (Auto) 0.0 10^3/uL (0.0-0.1) 11/23/22 06:17 Absolute Nucleated RBC 0.00 x10^3/uL 11/23/22 06:17 Nucleated RBC % 0.0 /100WBC 11/23/22 06:17 Sodium 138 mmol/L (135-145) 11/25/22 05:33 Potassium 4.1 mmol/L (3.5-5.0) 11/25/22 05:33 Chloride 108 mmol/L (101-111) 11/25/22 05:33 Carbon Dioxide 24 mmol/L (21-32) 11/25/22 05:33 Anion Gap 6.0 (6-13) 11/25/22 05:33 BUN 13 mg/dL (6-20) 11/25/22 05:33 Creatinine 0.4 mg/dL (0.4-1.0) 11/25/22 05:33 Estimated GFR (MDRD) 173 (>89) 11/25/22 05:33 Glucose 122 mg/dL (70-100) H 11/25/22 05:33 Calcium 8.4 mg/dL (8.5-10.3) L 11/25/22 05:33 Phosphorus 4.4 mg/dL (2.5-4.6) 11/25/22 05:33 Magnesium 2.0 mg/dL (1.7-2.8) 11/25/22 05:33 Total Bilirubin 0.3 mg/dL (0.2-1.0) 11/25/22 05:33 AST 62 IU/L (10-42) H 11/25/22 05:33 ALT 33 IU/L (10-60) 11/25/22 05:33 Alkaline Phosphatase 110 IU/L (42-121) 11/25/22 05:33 Total Protein 5.5 g/dL (6.7-8.2) L 11/25/22 05:33 Albumin 2.6 g/dL (3.2-5.5) L 11/25/22 05:33 Globulin 2.9 g/dL (2.1-4.2) 11/25/22 05:33 Albumin/Globulin Ratio 0.9 (1.0-2.2) L 11/25/22 05:33 Prealbumin 20 mg/dL (18-45) 11/25/22 05:33 Triglycerides 156 mg/dL (-149) H 11/25/22 05:33 Lipase 37 U/L (22-51) 11/23/22 06:17 Urine Opiates Screen POSITIVE (NEGATIVE) H 11/21/22 16:37 Ur Oxycodone Screen POSITIVE (NEGATIVE) H 11/21/22 16:37 Urine Methadone Screen NEGATIVE (NEGATIVE) 11/21/22 16:37 Ur Propoxyphene Screen NEGATIVE (NEGATIVE) 11/21/22 16:37 Ur Barbiturates Screen NEGATIVE (NEGATIVE) 11/21/22 16:37 Ur Tricyclics Screen NEGATIVE (NEGATIVE) 11/21/22 16:37 Ur Phencyclidine Scrn NEGATIVE (NEGATIVE) 11/21/22 16:37 Ur Amphetamine Screen NEGATIVE (NEGATIVE) 11/21/22 16:37 U Methamphetamines Scrn NEGATIVE (NEGATIVE) 11/21/22 16:37 U Benzodiazepines Scrn NEGATIVE (NEGATIVE) 11/21/22 16:37 Urine Cocaine Screen NEGATIVE (NEGATIVE) 11/21/22 16:37 U Cannabinoids Screen POSITIVE (NEGATIVE) H 11/21/22 16:37
[2022-11-25] MEDS ORDERED: HYDROmorphone 2 MG TABLET PO SCH (20:00)
[2022-11-25] MEDS: HYDROmorphone 2 MG TABLET PO SCH (20:12)
[2022-11-25] MEDS: ACETAMINOPHEN 500 MG TABLET PO SCH (22:07)
[2022-11-25] MEDS: IBUPROFEN 400 MG TABLET PO SCH (22:07)
[2022-11-26] MEDS: SODIUM CHLORIDE FLUSH 0.9% 10 ML SYRINGE IVP SCH ×3 (01:29→16:19)
[2022-11-26] MEDS: HYDROmorphone 2 MG TABLET PO SCH ×2 (02:08→08:17)
[2022-11-26] MEDS: ONDANSETRON ODT 4 MG TABLET TL PRN (03:16)
[2022-11-26] MEDS: ACETAMINOPHEN 500 MG TABLET PO SCH ×4 (03:16→22:35)
[2022-11-26] MEDS: IBUPROFEN 400 MG TABLET PO SCH ×4 (03:16→22:35)
[2022-11-26] MEDS: HYDROmorphone 1 MG/ML CARPUJECT IVP PRN (05:38)
[2022-11-26] MEDS: NICOTINE 7 MG PATCH TOP SCH (08:16)
[2022-11-26] MEDS: LIPASE/PROTEASE/AMYLASE CAPSULE PO SCH ×3 (08:16→16:18)
[2022-11-26] MEDS: ENOXAPARIN 40 MG/0.4 ML SYRINGE SUBQ SCH (08:17)
[2022-11-26] MEDS ORDERED: HYDROmorphone 1 MG/ML CARPUJECT IVP PRN (11:32)
[2022-11-26] MEDS: traMADol 50 MG TABLET PO SCH ×2 (14:17→20:39)
[2022-11-26] MEDS ORDERED: traMADol 50 MG TABLET PO SCH (16:00)
[2022-11-26] MEDS ORDERED: LIPASE/PROTEASE/AMYLASE CAPSULE PO SCH (19:00)
--- NOTE | 2022-11-26 19:44 | PROVIDER PROGRESS NOTE ---
Assessment/Plan - Problem List (1) Acute on chronic pancreatitis Assessment/Plan: She presented with intractable abdominal pain, requiring Dilaudid 1 mg every 2-3 hours IV push. Labs were reviewed. Lipase was 118 when she was evaluated in the emergency room then normalized. White cell count improved. She has no fever. No chills. The main manifestation of her acute phase for her pancreatitis was pain requiring IV opioids. She received iv PPN. I ordered a clear liquid diet 2 days ago, this was able to be advanced to soft, low fat, without any worsening or abdominal pain. Then PPN was stopped and IV fluids have been deep We resumed her Creon, now properly, to be given 30-60 min before meals In order to transition to po pain meds: I ordered Dilaudid p.o. scheduled at 0200, 0800, 1400, 2200. And will stagger that with Tylenol 1000mg scheduled plus Motrin 600 mg scheduled at 0400, 1000, 1600, 2200. Continued IV Dilaudid prn 8- 10/10 breakthrough pain. Plan: Continue to adjust oral pain meds in anticipation of a discharge soon (2) Drug-seaking behavior Patient told her RN that she has tramadol at home and also has oxycodone at home. The RN noticed that the patient is laughing and appears comfortable when she is with visitors but as soon as the RN walks in, she frowns and appears to hold her abdomen as if it is in pain and rates her pain 9/10. Plan: I have changed the scheduled Dilaudid to scheduled Tramadol and intersperse this with the Tylenol/Motrin as above in #1. I told the pt that we will see which narcotic gives her better relief, and that she is expected to be [facility] home tomorrow. (3) Pancreatic duct stones She had an unsuccessful ERCP in October. It should be remembered that she should be referred to [facility] in the outpatient setting to have a second ERCP to get the pancreatic duct stone removed. The ER provider who took care of her in the emergency room had a phone conversation with [facility] GI on-call. They did not feel that there was an urgent need to have her transferred for an ERCP. (4) Anemia due to poor nutrition Conclusion/Plan: She has been intermittently anemic. April, she went to 11.7. By July 2022 she was 10.5. September of this year she was 11.1. November 10 she was 9, and 11/20 in the ER she was 7.3. Plan: Following CBC intermittently (5) Iron deficiency anemia Iron in July 2022 was 46, ferritin was 16.6, TIBC 228 and considered low, percent saturation 20 and transferrin 163. She is not hemolyzing becasue she has within normal LDH November 2021. Platelets are high on admission with a thrombocytosis that I think is reactive. White cell count is also elevated but there is no fever, chills, or positive review of systems for infection. Her main complaint is abdominal pain. Nevertheless pancreatitis can convert to infected pancreas and we will continue to monitor for signs and symptoms of that. She likely has anemia due to poor nutrition She got iron infusion since she is not able to absorb due to her chronic pancreatitis Plan: She will probably need future iron infusions, when she is not able to absorb oral iron due to her chronic (6) Severe protein calorie malnutrition She has some muscle wasting and loss of subcutaneous fat on her chest and arms. She has weight loss of 25%of her weight in 1 year. Plan: Oral diet has started, she is interested in Ensure supplements (7) Tobacco withdrawal Conclusion/Plan: NicoDerm 14 mg was decreased to 7 mg 11/25 (8) Hypertension Hypertension is not listed in her past medical history and she does not take any medications for hypertension. CARLOS ALBERTO inhibitors are rarely associated with pancreatitis and as such I will not be giving her that. Plan: Cont hydralazine iv prn for systolic blood pressures greater than 160 (9) Migraine headache Resolved. She takes Excedrin Migraine at home. Plan: We will offer Fioricet as needed, which has nearly the same ingredients. She has also recvd the Dilaudid for this. needs medication, she may be a candidate for either amlodipine or metoprolol. (10) Hypokalemia Conclusion/Plan: Resolved after replacement Labs were all reviewed - Current Meds Current Meds: Current Medications Generic Name Dose Route Start Last Admin Trade Name Freq PRN Reason Stop Dose Admin Acetaminophen 1,000 mg 11/25/22 22:00 11/26/22 16:19 Acetaminophen 500 Mg Tablet PO 1,000 mg Q6H AL Administration Lipase/Protease/Amylase 4 cap 11/26/22 11:00 11/26/22 16:18 Lipase/Protease/Amylase Capsule PO 4 cap 0700,1100,1600 AL Administration Enoxaparin Sodium 40 mg 11/21/22 09:00 11/26/22 08:17 Enoxaparin 40 Mg/0.4 Ml Syringe SUBQ 40 mg DAILY AL Administration Ibuprofen 400 mg 11/25/22 22:00 11/26/22 16:18 Ibuprofen 400 Mg Tablet PO 400 mg 0400,1000,1600,2200 AL Administration Nicotine 1 patch 11/25/22 09:00 11/26/22 08:16 Nicotine 7 Mg Patch TOP 1 patch DAILY AL Administration Ondansetron HCl 4 mg 11/21/22 07:57 11/26/22 03:16 Ondansetron Odt 4 Mg Tablet TL 4 mg Q6HR PRN Administration Nausea / Vomiting Ondansetron HCl 4 mg 11/21/22 07:57 11/23/22 13:56 Ondansetron 4 Mg/2 Ml Vial IVP 4 mg Q6HR PRN Administration Nausea / Vomiting Prochlorperazine Edisylate 10 mg 11/22/22 03:45 11/23/22 18:34 Prochlorperazine 10 Mg/2 Ml Vial IVP 10 mg Q6HR PRN Administration Nausea / Vomiting Sodium Chloride 10 ml 11/21/22 07:57 11/23/22 23:16 Sodium Chloride Flush 0.9% 10 Ml Syringe IVP 10 ml PRN PRN Administration NEEDED PER PROVIDER ORDERS Sodium Chloride 10 ml 11/21/22 09:00 11/26/22 16:19 Sodium Chloride Flush 0.9% 10 Ml Syringe IVP 10 ml 0100,0900,1700 AL Administration Tramadol HCl 50 mg 11/26/22 14:00 11/26/22 14:17 Tramadol 50 Mg Tablet PO 50 mg 0200,0800,1400,2000 AL Administration - Lab Result Fish Bone Diagrams: 11/23/22 06:17 11/25/22 05:33 - Additional Planning My Orders: My Active Orders 11/25/22 22:00 Acetaminophen [Tylenol] 1,000 mg PO Q6H Ibuprofen [Motrin] 400 mg PO 0400,1000,1600,2200 11/26/22 11:00 Lipase/Protease/Amylase [Pancrelipase Dr 5,000/17,000/24,000 Half-Way] 4 cap PO 0700,1100,1600 11/26/22 11:32 HYDROmorphone 1MG CARP [Dilaudid 1Mg Carp] 1 mg IVP Q8HR PRN 11/26/22 14:00 traMADol [Ultram] 50 mg PO 0200,0800,1400,2000 11/26/22 19:00 Lipase/Protease/Amylase [Pancrelipase Dr 5,000/17,000/24,000 Half-Way] 2 cap PO 1900 Subjective - Subjective Patient Reports: Resting Comfortably Objective Vital Signs: Vital Signs - 24 hr 11/25/22 11/26/22 11/26/22 23:34 08:00 16:00 Temperature 36.6 C 36.5 C 36.3 C L Heart Rate [ 66 67 76 Brachial] Respiratory 18 18 18 Rate Blood Pressure 146/77 H 135/75 H 153/90 H [Right Brachial artery] O2 Saturation 98 99 100 Oxygen O2 Source Room air I&O (Last 24 Hrs): Intake and Output Totals x24h 11/24/22 11/25/22 11/26/22 23:59 23:59 23:59 Intake Total 3412.85 4308 1100 Output Total 2450 1100 Balance 962.85 3208 1100 General: Alert, Oriented x3 HEENT: Mucous membr. moist/pink, Other (Poor dentition with many missing teeth) Neuro: Alert, Non Focal Cardiovascular: Regular rate Respiratory: No respiratory distress Abdomen: Soft, No tenderness Extremities: No clubbing, No edema, No tenderness/swelling - Results Results: Laboratory Results WBC 11.3 x10^3/uL (4.8-10.8) H 11/23/22 06:17 RBC 2.79 10^6/uL (4.20-5.40) L 11/23/22 06:17 Hgb 8.8 g/dL (12.0-16.0) L 11/23/22 06:17 Hct 26.9 % (37.0-47.0) L 11/23/22 06:17 MCV 96.4 fL (81.0-99.0) 11/23/22 06:17 MCH 31.5 pg (27.0-31.0) H 11/23/22 06:17 MCHC 32.7 g/dL (32.0-36.0) 11/23/22 06:17 RDW 16.6 % (12.0-15.0) H 11/23/22 06:17 Plt Count 540 10^3/uL (130-450) H 11/23/22 06:17 MPV 7.7 fL (7.9-10.8) L 11/23/22 06:17 Neut # (Auto) 8.7 10^3/uL (1.5-6.6) H 11/23/22 06:17 Lymph # (Auto) 1.9 10^3/uL (1.5-3.5) 11/23/22 06:17 Baldwin # (Auto) 0.7 10^3/uL (0.0-1.0) 11/23/22 06:17 Eos # (Auto) 0.0 10^3/uL (0.0-0.7) 11/23/22 06:17 Baso # (Auto) 0.0 10^3/uL (0.0-0.1) 11/23/22 06:17 Absolute Nucleated RBC 0.00 x10^3/uL 11/23/22 06:17 Nucleated RBC % 0.0 /100WBC 11/23/22 06:17 Sodium 138 mmol/L (135-145) 11/25/22 05:33 Potassium 4.1 mmol/L (3.5-5.0) 11/25/22 05:33 Chloride 108 mmol/L (101-111) 11/25/22 05:33 Carbon Dioxide 24 mmol/L (21-32) 11/25/22 05:33 Anion Gap 6.0 (6-13) 11/25/22 05:33 BUN 13 mg/dL (6-20) 11/25/22 05:33 Creatinine 0.4 mg/dL (0.4-1.0) 11/25/22 05:33 Estimated GFR (MDRD) 173 (>89) 11/25/22 05:33 Glucose 122 mg/dL (70-100) H 11/25/22 05:33 Calcium 8.4 mg/dL (8.5-10.3) L 11/25/22 05:33 Phosphorus 4.4 mg/dL (2.5-4.6) 11/25/22 05:33 Magnesium 2.0 mg/dL (1.7-2.8) 11/25/22 05:33 Total Bilirubin 0.3 mg/dL (0.2-1.0) 11/25/22 05:33 AST 62 IU/L (10-42) H 11/25/22 05:33 ALT 33 IU/L (10-60) 11/25/22 05:33 Alkaline Phosphatase 110 IU/L (42-121) 11/25/22 05:33 Total Protein 5.5 g/dL (6.7-8.2) L 11/25/22 05:33 Albumin 2.6 g/dL (3.2-5.5) L 11/25/22 05:33 Globulin 2.9 g/dL (2.1-4.2) 11/25/22 05:33 Albumin/Globulin Ratio 0.9 (1.0-2.2) L 11/25/22 05:33 Prealbumin 20 mg/dL (18-45) 11/25/22 05:33 Triglycerides 156 mg/dL (-149) H 11/25/22 05:33 Lipase 37 U/L (22-51) 11/23/22 06:17 Urine Opiates Screen POSITIVE (NEGATIVE) H 11/21/22 16:37 Ur Oxycodone Screen POSITIVE (NEGATIVE) H 11/21/22 16:37 Urine Methadone Screen NEGATIVE (NEGATIVE) 11/21/22 16:37 Ur Propoxyphene Screen NEGATIVE (NEGATIVE) 11/21/22 16:37 Ur Barbiturates Screen NEGATIVE (NEGATIVE) 11/21/22 16:37 Ur Tricyclics Screen NEGATIVE (NEGATIVE) 11/21/22 16:37 Ur Phencyclidine Scrn NEGATIVE (NEGATIVE) 11/21/22 16:37 Ur Amphetamine Screen NEGATIVE (NEGATIVE) 11/21/22 16:37 U Methamphetamines Scrn NEGATIVE (NEGATIVE) 11/21/22 16:37 U Benzodiazepines Scrn NEGATIVE (NEGATIVE) 11/21/22 16:37 Urine Cocaine Screen NEGATIVE (NEGATIVE) 11/21/22 16:37 U Cannabinoids Screen POSITIVE (NEGATIVE) H 11/21/22 16:37
[2022-11-26] MEDS: SODIUM CHLORIDE FLUSH 0.9% 10 ML SYRINGE IVP PRN (22:36)
[2022-11-27] MEDS: traMADol 50 MG TABLET PO SCH ×2 (01:37→08:24)
[2022-11-27] MEDS: SODIUM CHLORIDE FLUSH 0.9% 10 ML SYRINGE IVP SCH ×2 (01:37→08:24)
[2022-11-27] MEDS: IBUPROFEN 400 MG TABLET PO SCH ×2 (03:53→10:29)
[2022-11-27] MEDS: ACETAMINOPHEN 500 MG TABLET PO SCH ×2 (03:53→10:29)
[2022-11-27] MEDS: LIPASE/PROTEASE/AMYLASE CAPSULE PO SCH ×2 (06:30→11:39)
[2022-11-27 07:22] VITALS: BP 163/85
[2022-11-27] MEDS: NICOTINE 7 MG PATCH TOP SCH (08:24)
[2022-11-27] MEDS: ENOXAPARIN 40 MG/0.4 ML SYRINGE SUBQ SCH (08:24)
[2022-11-27] MEDS: ONDANSETRON ODT 4 MG TABLET TL PRN (10:29)
--- NOTE | 2022-11-27 11:03 | Discharge Plan ---
Discharge Plan Problem Reviewed?: Yes Disposition: Home, Self Care Condition: Fair Prescriptions: Ondansetron Odt [Zofran Odt] 4 mg TL Q6HR PRN #14 tab PRN Reason: Nausea / Vomiting HYDROmorphone [Dilaudid] 2 mg PO Q8H PRN #20 tablet PRN Reason: Severe Pain (Level 7-10) Diet: Soft (Low fat diet) Activity Restrictions: Activity as Tolerated Shower Restrictions: No Driving Restrictions: No Instruction Topics: Pancreatitis Chronic Dc Health Concerns: You were hospitalized to treat acute pancreatitis on top of chronic pancreatitis, which is a result of the retained pancreatic duct stones. You needed bowel rest and IV narcotics for pain management, which have now been transitioned to oral narcotic pain meds. You are being discharged home because you can now tolerate a soft diet. Please stay on a low-fat diet and take your pancreas enzyme pills 30 minutes before meals, as you have been doing. Also, please stay well-hydrated. A new prescription for Dilaudid pills, as a pain medication, has been sent to your pharmacy. Please use these sparingly and you can intersperse taking Tylenol and Motrin for pain, as you have done before this hospitalization. Also you can use the Tramadol you have at home and the Hydrocodone you have at home. These medicines need to last you until you see the doctor on Dec 10, who will manage the pancreas duct stones. A prescription for a lozenge to take if you have nausea, has also been ordered for you. All new prescriptions were sent to your [facility] pharmacy in [place]. You should have a follow-up visit with your primary care provider or specialist/[employer], in the next 1 to 2 weeks for further management. Plan of Treatment: As above. Care Goals: Improvement in symptoms and stabilization are the goals. Assessment: These instructions are provided for you as a reminder. No Smoking: If you smoke, Please STOP! Call for help. Follow-up with: Shelia Barajas ARNP [Provider Admit Priv/Credential] -
[2022-11-27] MEDS ORDERED: HYDROmorphone 2 MG TABLET PO ONE (12:05)
--- NOTE | 2022-11-27 12:15 | DISCHARGE SUMMARY ---
Discharge Summary Admit Date: 11/21/22 Discharge Date: 11/27/22 Discharging Provider: Oliva Vera MD Primary Care Provider: Shelia Barajas ARNP Condition at Discharge: Fair Discharge Disposition: 01 Home, Self Care - HPI History of Present Illness: 50-year-old female who has a history of alcoholic pancreatitis but has been sober for over a year according to her stated history, but has developed chronic pancreatitis. She is followed by [facility] gastroenterology for her chronic pancreatitis. She had an ERCP in October for evaluation of retained stones in her pancreatic duct. However it was an unsuccessful procedure and she is awaiting evaluation with [facility]. She is seen frequently in our emergency room because of pain exacerbation. She was seen November 10, 2022. CT scan on that visit showed persistence of the pancreatic duct stone, the same chronic inflammation of her pancreas, and enzymes were normal. She was able to go home from that visit. She then returned on November 20, 2022 twice. With the first visit for abdominal pain, radiating to the right flank, nausea but no fever or vomiting, she was requesting pain medicine. She was requesting pain control. She had some tenderness to palpation on the right upper quadrant, positive Espinal sign, but no peritoneal signs. White cell count was elevated at 15.7, and hemoglobin was 7.3. Admission versus transfer was discussed with the patient. She stated that she really just wanted to go home because she had to deal with home situation. Apparently her 5-year-old daughter was with her in the emergency room. And she could not have her here with her while she was admitted. So she had to find somebody to watch her daughter. Her son came to the emergency room to pecan picker his 5-year-old sister. ER reported that he was intoxicated. And they walked home last night (because they live across the street). While her children walked home, she stayed in the ER to get her 1 unit of blood. She then left, but came back because nausea and vomiting returned. Abdominal pain returned. Objective work-up in the emergency room showed an ultrasound having a persistently dilated pancreatic duct, calcific densities consistent with chronic pancreatitis. Continued slight increase in the common biliary duct without intrahepatic ductal dilatation. CT of the abdomen had acute on chronic pancreatitis. Pancreatic ductal dilatation with numerous calcific bodies near the distal duct. Stable hydropic gallbladder.Bilirubin and liver function studies are normal. White cell count was 15.7 last night, and 15.6 today. Potassium was 4.0 last night, and 3.0 this morning. No fever and BP stable. The second emergency room provider spoke to [facility], spoke to GI. They do not feel that this patient requires urgent transfer for an ERCP at this time. As such the ER doctor is requesting that we admit this patient for acute on chronic pancreatitis, and control of her nausea, and pain. On initial evaluation, the patient's review of systems was positive for her abdominal pain, nausea, vomiting. Right upper quadrant pain that seems to refer to her right shoulder. She denied fever, chills, rigors. No blood in her stool. No blood in her emesis. Weight loss has been ongoing as she has suffered through these last few years of pancreatitis. No new cough, shortness of breath, phlegm production. No urgency, frequency diarrhea. She does not have any new joint pain, just her chronic back pain. No syncope, seizures, memory loss. She is cold all the time The patient has been increasingly angry through the course of the day. She is requesting a nicotine patch for tobacco withdrawal. She is angry that she is n.p.o. except for ice chips. Speaking with a loud voice. She is demanding that we feed her even if it is broth. She does not like morphine and is demanding that we change her to Dilaudid. I did answer her questions and explained that we usually keep acute pancreatitis patients n.p.o. I explained that we do not like to stimulate the pancreas with any type of food or intake in order to quiet enzyme secretion down. And then in a day or 2 as her pancreas calms down, we can start feeding her and moving forward. She is not happy with that plan. She wants a new doctor. I explained that there is no other doctor during this shift and she states that I am lying, that she has worked here before, and knows that there is another doctor on shift. She will call her friends and [id number] to find out who the other doctor is. I ask if there are any other questions and she says no, not for now. - HOSPITAL COURSE Hospital Course: (1) Acute on chronic pancreatitis She presented with intractable abdominal pain, requiring Dilaudid 1 mg every 2 hours. Lipase was 118 when she was evaluated in the emergency room then normalized. Platelets were high on this admission, a thrombocytosis that was probably reactive. White cell count was also elevated, but she had no fever, chills, or positive review of systems for infection. Her main complaint was a bdominal pain. Nevertheless pancreatitis can convert to infected pancreas, and we monitored for signs or symptoms of that. The main manifestation of her acute phase for her pancreatitis was pain requiring IV opioids. She received iv PPN. Then eventually she tolerated a clear liquid diet and was able to be advanced to soft, low fat, diet without any worsening or abdominal pain. PPN was stopped. We resumed her Creon, to be given 30-60 min before meals. She was transitioned to po pain meds with Dilaudid, staggered that with Tylenol plus Motrin. She was discharged with several tablets of oral Dilaudid. (2) Pancreatic duct stones She had an unsuccessful ERCP in October. The ER provider had a phone conversation with [facility] GI on-call. They did not feel that there was an urgent need to have her transferred for an ERCP. It should be rem embered that she should be referred to [facility] in the outpatient setting to have a second ERCP to get the pancreatic duct stone removed. (3) Drug-seeking behavior IV pain medicine was Dilaudid (not Morphine at her request), we ordered 1 mg eulalio ry 2 hours as needed. The RN noticed that the patient was laughing and appeared comfortable when she was with visitors, but as soon as the RN walked in, she frowned and appeared to hold her abdomen, as if it is in pain, and rated her pain 9/10. We tried scheduled Dilaudid and scheduled Tramadol and tried overlapping those with Tylenol/Motrin, since the patient told her RN that she has Tramadol at home. She also changed her story about what she has at home. (4) Anemia due to poor nutrition She has been intermittently anemic. In Apr 2022, Hgb was 11.7. By July, Hgb was 10.5. September2022, Hgb was 11.1. On 11/10/22, Hgb was 9, and 11/20/22 in the ER now, her Hgb was 7.3. She likely has anemia due to poor nutrition. We followed CBC intermittently but no transfusions were needed. (5) Iron deficiency anemia Iron in July 2022 was 46, ferritin was 16.6, TIBC 228 and considered low, percent saturation 20% and transferrin 163. She was not hemolyzing because she had LDH within normal limits in November 2021. She likely has anemia due to poor nutrition. She got iron infusion here, since she was not able to absorb due to her chronic pancreatitis. She will probably need future iron infusions, when she is not able to absorb oral iron due to her chronic pancreatitis. (6) Severe protein calorie malnutrition She has some muscle wasting and loss of subcutaneous fat on her chest and arms. She has had a weight loss of 25% of her weight in 1 year. When she took in a diet, she was interested in Ensure supplements. (7) Hypertension Hypertension is not listed in her past medical history and she does not take any medications for hypertension. CARLOS ALBERTO inhibitors are rarely associated with pancreatitis and as such, we did not give her that. If she needs BP medication, she may be a candidate for either Amlodipine or Metoprolol. (8) Migraine headache She takes Excedrin Migraine at home. We offered Fioricet prn, which has nearly the same ingredients. She wanted Dilaudid for her migraine. (9) Tobacco withdrawal NicoDerm 14 mg was ordered at admission, and decreased to 7 mg on 11/25/22. (10) Hypokalemia Resolved after replacement - ALLERGIES Allergies/Adverse Reactions: Allergies Allergy/AdvReac Type Severity Reaction Status Date / Time No Known Drug Allergies Allergy Verified 11/29/22 10:36 - MEDICATIONS Home Medications: Ambulatory Orders Medication Instructions Recorded Confirmed Albuterol Sulfate [Albuterol 2 puffs IH Q4H PRN 05/06/20 11/21/22 Sulfate Hfa] Ibuprofen [Motrin] 800 mg PO Q6H PRN 11/29/21 11/21/22 Pnv No.121/Iron/Folic Acid 1 each PO DAILY #30 tablet 12/01/21 11/21/22 [ Multivitamin Tablet] Thiamine [Vitamin B-1] 100 mg PO DAILY #30 tablet 12/01/21 11/21/22 Omeprazole 40 mg PO DAILY #30 cap 01/01/22 11/21/22 Acetaminophen [Tylenol] 1,000 mg PO Q6H PRN 11/21/22 11/21/22 Calcium Carbonate [Tums (Calcium 500 mg PO Q4-6H 11/21/22 11/21/22 Carbonate 500mg)] Colestipol HCl [Colestid] 2 gm PO BID 11/21/22 11/21/22 Lipase/Protease/Amylase [Zenpep Dr 1 cap PO TIDWM 11/21/22 11/21/22 20,000 Unit Capsule] Metoclopramide [Reglan] 10 mg PO TID PRN 11/21/22 11/21/22 Ondansetron Odt [Zofran Odt] 4 mg PO TID PRN 11/21/22 11/21/22 Potassium Chloride [K-Dur] 10 meq PO DAILY 11/21/22 11/21/22 HYDROmorphone [Dilaudid] 2 mg PO Q8H PRN #20 tablet 11/27/22 Ondansetron Odt [Zofran Odt] 4 mg TL Q6HR PRN #14 tab 11/27/22 Sulfamethox/Trimeth 800/160 1 each PO BID #14 tablet 11/29/22 [Bactrim Ds 800/160] - PHYSICAL EXAM AT DISCHARGE General Appearance: positive: Alert, Mild distress (when narcotic wearing off.), Other (Cachectic WF) Eyes Bilateral: positive: Normal inspection, EOMI ENT: positive: No signs of dehydration, Other (Poor dentition with many missing teeth.) Neck: positive: Nml inspection, No JVD Respiratory: positive: No respiratory distress Cardiovascular: positive: Regular rate & rhythm, No murmur Abdomen: positive: Non-tender, Nml bowel sounds, No distention Skin: positive: Warm, Dry, Pallor Extremities: positive: Non-tender, No pedal edema Neurologic/Psychiatric: positive: Oriented x3, Motor nml - LABS Result Diagrams: 11/23/22 06:17 11/25/22 05:33 - FOLLOW UP Follow Up: See PCP and keep appt w/ Dr Rodriguez. Needs to return to for repat ERCP. - TIME SPENT Time Spent in Discharge (Minutes): 50
== END 2022-11-27 12:48 | disposition home or self-care (01) | DRG 438 ==
LOC: EDUNIT# → ED 05:05 → MS2 07:57
PROVIDERS: ADMIT Specialist; ATTEND Internal Medicine
DX: K85.90 Acute pancreatitis without necrosis or infection, unspecified (principal); E43 Unspecified severe protein-calorie malnutrition; Z68.1 Body mass index [BMI] 19.9 or less, adult; F17.213 Nicotine dependence, cigarettes, with withdrawal; K86.1 Other chronic pancreatitis; E87.6 Hypokalemia; D72.829 Elevated white blood cell count, unspecified; K86.89 Other specified diseases of pancreas; Z76.5 Malingerer [conscious simulation]; D53.9 Nutritional anemia, unspecified; D50.9 Iron deficiency anemia, unspecified; I10 Essential (primary) hypertension; G43.909 Migraine, unspecified, not intractable, without status migrainosus; E78.00 Pure hypercholesterolemia, unspecified; F41.9 Anxiety disorder, unspecified; F32.A Depression, unspecified
CPT/HCPCS: 36415; 80048; 80053; 80306; 83690; 83735; 84100; 84134; 84478; 85025; 96365; 96375; 96376; 99285; A9270; J1170; J1650; J2765; J2916; J3490; Q0162

== ENCOUNTER 2022-11-29 10:29 | Emergency (ER) | payer MEDICAID ==
[2022-11-29 10:36] VITALS: BP 159/99
[2022-11-29] MEDS ORDERED: SULFAMETH/TRIMETH DS 800/160 MG TABLET PO STA (11:03)
--- NOTE | 2022-11-29 11:19 | ED Physician Documentation ---
PD HPI UPPER EXT INJURY - Stated complaint Stated Complaint: L ARM SWELLING - Chief complaint Chief Complaint: Wound - History obtained from History obtained from: Patient - Additonal information Additional information: The patient comes to the emergency department chief complaint of left arm pain and redness at the site of her IV. She was just here in the hospital for her ongoing issues with abdominal pain and pancreatitis and states actually, since being put on oral Dilaudid, that is doing much better. However, she has noticed a red tender area surrounding where her IV was In her left AC. She has not had any fevers or chills. No streaking. She says her friend said she might have a blood clot and that was why she came in. 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, 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) : None HEENT: Other Psych: Depression, Anxiety Musculoskeletal: Chronic back pain Derm: None - Past Surgical History Past Surgical History: Yes General: Other /ACADEMIC SUCCESS COORDINATOR: Other - Present Medications Home Medications: Ambulatory Orders Medication Instructions Recorded Confirmed Albuterol Sulfate [Albuterol 2 puffs IH Q4H PRN 05/06/20 11/21/22 Sulfate Hfa] Ibuprofen [Motrin] 800 mg PO Q6H PRN 11/29/21 11/21/22 Pnv No.121/Iron/Folic Acid 1 each PO DAILY #30 tablet 12/01/21 11/21/22 [ Multivitamin Tablet] Thiamine [Vitamin B-1] 100 mg PO DAILY #30 tablet 12/01/21 11/21/22 Omeprazole 40 mg PO DAILY #30 cap 01/01/22 11/21/22 Acetaminophen [Tylenol] 1,000 mg PO Q6H PRN 11/21/22 11/21/22 Calcium Carbonate [Tums (Calcium 500 mg PO Q4-6H 11/21/22 11/21/22 Carbonate 500mg)] Colestipol HCl [Colestid] 2 gm PO BID 11/21/22 11/21/22 Lipase/Protease/Amylase [Zenpep Dr 1 cap PO TIDWM 11/21/22 11/21/22 20,000 Unit Capsule] Metoclopramide [Reglan] 10 mg PO TID PRN 11/21/22 11/21/22 Ondansetron Odt [Zofran Odt] 4 mg PO TID PRN 11/21/22 11/21/22 Potassium Chloride [K-Dur] 10 meq PO DAILY 11/21/22 11/21/22 HYDROmorphone [Dilaudid] 2 mg PO Q8H PRN #20 tablet 11/27/22 Ondansetron Odt [Zofran Odt] 4 mg TL Q6HR PRN #14 tab 11/27/22 Sulfamethox/Trimeth 800/160 1 each PO BID #14 tablet 11/29/22 [Bactrim Ds 800/160] - Allergies Allergies/Adverse Reactions: Allergies Allergy/AdvReac Type Severity Reaction Status Date / Time No Known Drug Allergies Allergy Verified 11/29/22 10:36 - Social History Does the pt smoke?: Yes Smoking Status: Current every day smoker Does the pt drink ETOH?: Yes Does the pt have substance abuse?: No - Immunizations Immunizations are current?: Yes Immunizations: TDAP >10years/unknown - POLST Patient has POLST: No POLST Status: Full Code PD ED PE NORMAL - Vitals Vital signs reviewed: Yes - General General: Alert and oriented X 3, No acute distress - HEENT HEENT: Atraumatic, PERRL, EOMI, Moist mucous membranes - Neck Neck: Supple, no meningeal sign - Cardiac Cardiac: Strong equal pulses - Respiratory Respiratory: No respiratory distress - Derm Derm: Warm and dry, Other (IV site in L AC with small scab and approximately 6cm area of erythema surrounding and proximal to the puncture site. Mild induration at puncture, but remainder soft. No fluctuance or drainage.) - Extremities Extremities: No deformity - 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 - Psych Psych: Normal mood, Normal affect Results - Vitals Vitals: Oxygen O2 Source Room air PD Medical Decision Making - ED course Complexity details: considered differential, d/w patient ED course: I d/w pt that her sx and findings are consistent with phlebitis and maybe a small cellulitis. I do not feel the has a DVT. We have started abx in the ED, and pt is given a prescription for the same. We have discussed the usual indications for return. Departure - Departure Disposition: 01 Home, Self Care Clinical Impression: Phlebitis Condition: Stable Instructions: ED Phlebitis Superficial Prescriptions: Sulfamethox/Trimeth 800/160 [Bactrim Ds 800/160] 1 each PO BID #14 tablet Comments: Your symptoms and physical exam findings are consistent with a phlebitis, which is an inflammation of the tissue of the vein and surrounding tissue after IV placement. This is very common and generally benign. It appears you have a little bit of a skin infection surrounding the IV site also, and for this you have been started on antibiotics. Your findings are not at all consistent with a deep vein clot, which would be the only kind that we would worry about in terms of more serious complications. IVs are put in the superficial veins, and these do not pose a risk of clot breaking loose and going to your lung circulation. You may continue your normal pain medication and use hot packs to help soothe the area. You have been given your first dose of antibiotics here, and a prescription has been sent to the [facility] pharmacy. Please pick the antibiotics up this afternoon's you can take your evening dose today. Please follow-up with your primary doctor as needed. Discharge Date/Time: 11/29/22 11:34
== END 2022-11-29 11:34 | disposition home or self-care (01) ==
LOC: ED 10:29
DX: I80.9 Phlebitis and thrombophlebitis of unspecified site (principal); I10 Essential (primary) hypertension; E78.00 Pure hypercholesterolemia, unspecified; F17.200 Nicotine dependence, unspecified, uncomplicated; Z79.899 Other long term (current) drug therapy
CPT/HCPCS: 99282; 99283; A9270

== ENCOUNTER 2023-02-18 13:46 | Outpatient (CLI) | payer MEDICAID ==
[2023-02-18 14:07] LABS: BASOPHILS # (AUTO) 0.1 10^3/uL (0.0-0.1); EOSINOPHILS # (AUTO) 0.3 10^3/uL (0.0-0.7); EOSINOPHILS % (AUTO) 2.4 %; HCT - HEMATOCRIT 34.7 % (37.0-47.0); HGB - HEMOGLOBIN 11.8 g/dL (12.0-16.0); LYMPHOCYTES # (AUTO) 3.7 10^3/uL (1.5-3.5); LYMPHOCYTES % (AUTO) 35.9 %; MEAN CORPUSCULAR HEMOGLOBIN 32.2 pg (27.0-31.0); MEAN CORPUSCULAR VOLUME 94.6 fL (81.0-99.0); MEAN PLATELET VOLUME 8.3 fL (7.9-10.8); MONOCYTES # (AUTO) 0.5 10^3/uL (0.0-1.0); MONOCYTES % (AUTO) 5.2 %; NEUTROPHILS # (AUTO) 5.7 10^3/uL (1.5-6.6); NEUTROPHILS % (AUTO) 55.3 %; PLT - PLATELET COUNT 529 10^3/uL (130-450); RED BLOOD COUNT 3.67 10^6/uL (4.20-5.40); RED CELL DISTRIBUTION WIDTH 19.9 % (12.0-15.0); WHITE BLOOD COUNT 10.4 x10^3/uL (4.8-10.8)
[2023-02-18 14:20] LABS: ALBUMIN 3.2 g/dL (3.2-5.5); ALBUMIN/GLOBULIN RATIO 0.9 (1.0-2.2); BILIRUBIN,TOTAL 0.6 mg/dL (0.2-1.0); CALCIUM 8.5 mg/dL (8.5-10.3); CREATININE 0.6 mg/dL (0.4-1.0); POTASSIUM 3.9 mmol/L (3.5-5.0); TOTAL PROTEIN 6.7 g/dL (6.7-8.2)
[2023-02-18 14:31] LABS: THYROID STIMULATING HORMONE 0.66 uIU/mL (0.34-5.60)
[2023-02-18 14:39] LABS: FERRITIN 59.4 ng/mL (11.0-306.8)
[2023-02-18 14:42] LABS: FOLATE 18.53 ng/mL (5.90 - >24.8)
== END 2023-02-18 13:47 | disposition home or self-care (01) ==
LOC: LAB 13:46
PROVIDERS: ATTEND Nurse Practitioner
DX: K86.1 Other chronic pancreatitis (principal); D64.9 Anemia, unspecified; E46 Unspecified protein-calorie malnutrition
CPT/HCPCS: 36415; 80050; 82150; 82607; 82728; 82746; 83540; 83690; 84466

== ENCOUNTER 2023-03-06 16:50 | Outpatient (CLI) | payer MEDICAID | END 2023-03-06 23:59 | disposition critical access hospital (66) | LOC: EMS 16:50 | DX: R51.9 Headache, unspecified (principal) | CPT/HCPCS: A0425; A0429; A0999 ==

== ENCOUNTER 2023-03-06 16:56 | Emergency (ER) | payer MEDICAID ==
[2023-03-06 17:05] VITALS: BP 107/74
[2023-03-06 17:27] LABS: BASOPHILS % (AUTO) 0.3 %; HGB - HEMOGLOBIN 11.6 g/dL (12.0-16.0); LYMPHOCYTES # (AUTO) 2.8 10^3/uL (1.5-3.5); LYMPHOCYTES % (AUTO) 31.8 %; MEAN CORPUSCULAR HEMOGLOBIN 32.4 pg (27.0-31.0); MEAN CORPUSCULAR HGB CONC 34.1 g/dL (32.0-36.0); MEAN PLATELET VOLUME 8.6 fL (7.9-10.8); MONOCYTES # (AUTO) 0.4 10^3/uL (0.0-1.0); MONOCYTES % (AUTO) 4.9 %; NEUTROPHILS # (AUTO) 5.5 10^3/uL (1.5-6.6); NEUTROPHILS % (AUTO) 62.8 %; PLT - PLATELET COUNT 485 10^3/uL (130-450); RED BLOOD COUNT 3.58 10^6/uL (4.20-5.40); RED CELL DISTRIBUTION WIDTH 20.3 % (12.0-15.0); WHITE BLOOD COUNT 8.8 x10^3/uL (4.8-10.8)
[2023-03-06 17:30] LABS: SLIDE REVIEW? Indicated
[2023-03-06 17:40] LABS: ALBUMIN 2.5 g/dL (3.2-5.5); ALBUMIN/GLOBULIN RATIO 0.8 (1.0-2.2); ALKALINE PHOSPHATASE 158 IU/L (42-121); ALT ALANINE AMINOTRANSFERASE 28 IU/L (10-60); AST ASPARTATE AMINOTRANSFERASE 41 IU/L (10-42); BILIRUBIN,TOTAL 0.6 mg/dL (0.2-1.0); BUN - BLOOD UREA NITROGEN 6 mg/dL (6-20); CALCIUM 8.1 mg/dL (8.5-10.3); CARBON DIOXIDE - CO2 23 mmol/L (21-32); CHLORIDE 108 mmol/L (101-111); CREATININE 0.5 mg/dL (0.4-1.0); ETOH - ETHANOL < 5.0 mg/dL; GFR - MDRD 133 (>89); GLUCOSE 105 mg/dL (70-100); LIPASE 23 U/L (22-51); POTASSIUM 3.1 mmol/L (3.5-5.0); SODIUM 137 mmol/L (135-145); TOTAL PROTEIN 5.7 g/dL (6.7-8.2)
[2023-03-06 17:44] LABS: BILIRUBIN,URINE NEGATIVE (NEGATIVE); GLUCOSE, URINE (UA) NEGATIVE (NEGATIVE); KETONES,URINE (UA) 15 mg/dL (NEGATIVE); LEUKOCYTE ESTERASE, URINE NEGATIVE (NEGATIVE); NITRITE,URINE NEGATIVE (NEGATIVE); OCCULT BLOOD,URINE NEGATIVE (NEGATIVE); PH,URINE 5.5 PH (5.0-7.5); PROTEIN,URINE NEGATIVE (NEGATIVE); UROBILINOGEN,URINE 0.2 (NORMAL) E.U./dL (NORMAL)
[2023-03-06 17:47] LABS: CLARITY,URINE CLEAR (CLEAR)
--- NOTE | 2023-03-06 17:49 | ED Physician Documentation ---
History of Present Illness - Stated complaint Stated Complaint: VOMITING/LOVE - Chief complaint Chief Complaint: General - History obtained from History obtained from: Patient, EMS - History of Present Illness Timing: How many days ago (2) Pain level max: 8 Pain level now: 8 - Additonal information Additional information: Patient is a 47-year-old female who presents to the emergency department complaining of a headache ongoing for the past 2 days. History of migraines and feels similar. She states her last drink of alcohol was last year. She did have some vomiting earlier today but that has since resolved. She is mainly complaining of a gradual onset holoacranial headache that is similar to prior migraines. Dull, aching, throbbing, worse with light and sound. Worse with movement. Took Excedrin Migraine without relief. Denies any trauma or fever. 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, 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) : None HEENT: Other Psych: Depression, Anxiety Musculoskeletal: Chronic back pain Derm: None - Past Surgical History Past Surgical History: Yes General: Other /MELTER LOADER: Other - Present Medications Home Medications: Ambulatory Orders Medication Instructions Recorded Confirmed Albuterol Sulfate [Albuterol 2 puffs IH Q4H PRN 05/06/20 11/21/22 Sulfate Hfa] Ibuprofen [Motrin] 800 mg PO Q6H PRN 11/29/21 11/21/22 Pnv No.121/Iron/Folic Acid 1 each PO DAILY #30 tablet 12/01/21 11/21/22 [ Multivitamin Tablet] Thiamine [Vitamin B-1] 100 mg PO DAILY #30 tablet 12/01/21 11/21/22 Omeprazole 40 mg PO DAILY #30 cap 01/01/22 11/21/22 Acetaminophen [Tylenol] 1,000 mg PO Q6H PRN 11/21/22 11/21/22 Calcium Carbonate [Tums (Calcium 500 mg PO Q4-6H 11/21/22 11/21/22 Carbonate 500mg)] Colestipol HCl [Colestid] 2 gm PO BID 11/21/22 11/21/22 Lipase/Protease/Amylase [Zenpep Dr 1 cap PO TIDWM 11/21/22 11/21/22 20,000 Unit Capsule] Metoclopramide [Reglan] 10 mg PO TID PRN 11/21/22 11/21/22 Ondansetron Odt [Zofran Odt] 4 mg PO TID PRN 11/21/22 11/21/22 Potassium Chloride [K-Dur] 10 meq PO DAILY 11/21/22 11/21/22 HYDROmorphone [Dilaudid] 2 mg PO Q8H PRN #20 tablet 11/27/22 Ondansetron Odt [Zofran Odt] 4 mg TL Q6HR PRN #14 tab 11/27/22 Sulfamethox/Trimeth 800/160 1 each PO BID #14 tablet 11/29/22 [Bactrim Ds 800/160] - Allergies Allergies/Adverse Reactions: Allergies Allergy/AdvReac Type Severity Reaction Status Date / Time No Known Drug Allergies Allergy Verified 03/06/23 17:00 - Social History Does the pt smoke?: Yes Smoking Status: Current every day smoker Does the pt drink ETOH?: Yes Does the pt have substance abuse?: No - Immunizations Immunizations are current?: Yes Immunizations: TDAP >10years/unknown - POLST Patient has POLST: No POLST Status: Full Code PD ED PE NORMAL - Vitals Vital signs reviewed: Yes - General General: Alert and oriented X 3, No acute distress - HEENT HEENT: Atraumatic, PERRL, EOMI, Moist mucous membranes - Neck Neck: Supple, no meningeal sign, No bony TTP - Cardiac Cardiac: RRR - Respiratory Respiratory: No respiratory distress, Clear bilaterally - Abdomen Abdomen: Soft, Non tender, Non distended - Back Back: No CVA TTP, No spinal TTP - Derm Derm: Warm and dry - Extremities Extremities: No edema - 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, qc analyst 2-12 intact, No motor deficit, No sensory deficit, Normal speech - Psych Psych: Normal mood, Normal affect Results - Vitals Vitals: Vital Signs - 24 hr 03/06/23 16:59 Temperature 37.3 C Heart Rate 94 Respiratory 16 Rate Blood Pressure 107/74 O2 Saturation 100 Oxygen O2 Source Room air - Labs Labs: Laboratory Tests 03/06/23 03/06/23 03/06/23 17:20 17:22 17:22 WBC 8.8 RBC 3.58 L Hgb 11.6 L Hct 34.0 L MCV 95.0 MCH 32.4 H MCHC 34.1 RDW 20.3 H Plt Count 485 H MPV 8.6 Neut # (Auto) 5.5 Lymph # (Auto) 2.8 Dale # (Auto) 0.4 Eos # (Auto) 0.0 Baso # (Auto) 0.0 Absolute Nucleated RBC 0.00 Nucleated RBC % 0.0 Manual Slide Review Indicated Platelet Estimate INCREASED (>450,000) Platelet Morphology NORMAL APPEARANCE RBC Morph Micro Appear 3+ ANISOCYTOSIS Sodium 137 Potassium 3.1 L Chloride 108 Carbon Dioxide 23 Anion Gap 6.0 BUN 6 Creatinine 0.5 Estimated GFR (MDRD) 133 Glucose 105 H Calcium 8.1 L Total Bilirubin 0.6 AST 41 ALT 28 Alkaline Phosphatase 158 H Total Protein 5.7 L Albumin 2.5 L Globulin 3.2 Albumin/Globulin Ratio 0.8 L Lipase 23 Urine Color YELLOW Urine Clarity CLEAR Urine pH 5.5 Ur Specific Holden 1.025 Urine Protein NEGATIVE Urine Glucose (UA) NEGATIVE Urine Ketones 15 H Urine Occult Blood NEGATIVE Urine Nitrite NEGATIVE Urine Bilirubin NEGATIVE Urine Urobilinogen 0.2 (NORMAL) Ur Leukocyte Esterase NEGATIVE Ur Microscopic Review NOT INDICATED Urine Culture Comments NOT INDICATED Ethyl Alcohol < 5.0 PD Medical Decision Making - ED course Complexity details: reviewed results, re-evaluated patient, considered differential, d/w patient ED course: Patient with her usual migraine headache. Given IV fluids, droperidol and a dose of Dilaudid. Symptoms resolved. No significant lab abnormalities. Patient feels much better and requesting to go home at this time. Tolerating p.o. without difficulty. No evidence of subarachnoid hemorrhage, tumor. Ambulating without difficulty. No focal neurological deficits. 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 Patient with good understanding of and agreement to plan and is comfortable going home at this time This document was made in part using voice recognition software. While efforts are made to proofread this document, sound alike and grammatical errors may occur. Departure - Departure Disposition: 01 Home, Self Care Clinical Impression: Headache Qualifiers: Headache type: unspecified Headache chronicity pattern: acute headache Intractability: not intractable Qualified Code(s): R51.9 - Headache, unspecified Condition: Good Instructions: ED Headache Migraine Follow-Up: Shelia Barajas ARNP [Primary Care Provider] - As Needed Comments: Please follow-up with your doctor as needed for further care. Please return if you worsen. Discharge Date/Time: 03/06/23 18:54
[2023-03-06 17:51] LABS: PLATELET ESTIMATE, MANUAL INCREASED (>450,000) (NORMAL); PLATELET MORPHOLOGY NORMAL APPEARANCE (NORMAL); RBC MORPHOLOGY (MULTIPLE) 3+ ANISOCYTOSIS (NORMAL)
[2023-03-06] MEDS ORDERED: HYDROmorphone 1 MG/ML CARPUJECT IVP ONE (18:04)
[2023-03-06] MEDS ORDERED: DROPERIDOL 5 MG/2 ML VIAL IVP ONE (18:04)
== END 2023-03-06 18:54 | disposition home or self-care (01) ==
LOC: EDUNIT# → ED 16:56
DX: G43.909 Migraine, unspecified, not intractable, without status migrainosus (principal); F17.200 Nicotine dependence, unspecified, uncomplicated
CPT/HCPCS: 36415; 80053; 80320; 81003; 83690; 85025; 96374; 96375; 99283; J1170; 81001; 87086

== ENCOUNTER 2023-03-08 19:52 | Emergency (ER) | payer MEDICAID ==
[2023-03-08 20:08] VITALS: BP 135/76
[2023-03-08] MEDS ORDERED: HYDROcod/ACETAM 5/325 MG TABLET PO STA (20:21)
[2023-03-08] MEDS ORDERED: LIDOCAINE TOPICAL 4% 50 ML BOTTLE TOP ONE (20:21)
--- NOTE | 2023-03-08 20:25 | ED Physician Documentation ---
History of Present Illness - Stated complaint Stated Complaint: FACE LAC/INJ - Chief complaint Chief Complaint: Heent - History obtained from History obtained from: Patient - Additonal information Additional information: She was getting up out of a chair and tripped over the dog's leash. She face planted on gravel and had positive loss of consciousness. Has scrapes on the face and the knees. Tetanus is up-to-date. Has a moderate headache. 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, 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) : None HEENT: Other Psych: Depression, Anxiety Musculoskeletal: Chronic back pain Derm: None - Past Surgical History Past Surgical History: Yes General: Other /SANDBLASTER SUPERVISOR: Other - Present Medications Home Medications: Ambulatory Orders Medication Instructions Recorded Confirmed Albuterol Sulfate [Albuterol 2 puffs IH Q4H PRN 05/06/20 11/21/22 Sulfate Hfa] Ibuprofen [Motrin] 800 mg PO Q6H PRN 11/29/21 11/21/22 Pnv No.121/Iron/Folic Acid 1 each PO DAILY #30 tablet 12/01/21 11/21/22 [ Multivitamin Tablet] Thiamine [Vitamin B-1] 100 mg PO DAILY #30 tablet 12/01/21 11/21/22 Omeprazole 40 mg PO DAILY #30 cap 01/01/22 11/21/22 Acetaminophen [Tylenol] 1,000 mg PO Q6H PRN 11/21/22 11/21/22 Calcium Carbonate [Tums (Calcium 500 mg PO Q4-6H 11/21/22 11/21/22 Carbonate 500mg)] Colestipol HCl [Colestid] 2 gm PO BID 11/21/22 11/21/22 Lipase/Protease/Amylase [Zenpep Dr 1 cap PO TIDWM 11/21/22 11/21/22 20,000 Unit Capsule] Metoclopramide [Reglan] 10 mg PO TID PRN 11/21/22 11/21/22 Ondansetron Odt [Zofran Odt] 4 mg PO TID PRN 11/21/22 11/21/22 Potassium Chloride [K-Dur] 10 meq PO DAILY 11/21/22 11/21/22 HYDROmorphone [Dilaudid] 2 mg PO Q8H PRN #20 tablet 11/27/22 Ondansetron Odt [Zofran Odt] 4 mg TL Q6HR PRN #14 tab 11/27/22 Sulfamethox/Trimeth 800/160 1 each PO BID #14 tablet 11/29/22 [Bactrim Ds 800/160] - Allergies Allergies/Adverse Reactions: Allergies Allergy/AdvReac Type Severity Reaction Status Date / Time No Known Drug Allergies Allergy Verified 03/08/23 20:04 - Social History Does the pt smoke?: Yes Smoking Status: Current every day smoker Does the pt drink ETOH?: Yes Does the pt have substance abuse?: No - Immunizations Immunizations are current?: Yes Immunizations: TDAP >10years/unknown - POLST Patient has POLST: No POLST Status: Full Code PD ED PE NORMAL - Vitals Vital signs reviewed: Yes - General General: Alert and oriented X 3, No acute distress - HEENT HEENT: PERRL, EOMI, Other (Multiple abrasions on the face, no deformities or facial bony tenderness.) - Neck Neck: Supple, no meningeal sign, No bony TTP - Back Back: No CVA TTP, No spinal TTP - Derm Derm: Normal color, Warm and dry - Extremities Extremities: Other (Right knee greater than left knee abrasions without tenderness or limited range of motion. Normal gait.) - 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 Eye Opening: Spontaneous Motor: Obeys Commands Verbal: Oriented GCS Score: 15 Results - Vitals Vitals: Vital Signs - 24 hr 03/08/23 19:58 Temperature 36.4 C L Heart Rate 68 Respiratory 19 Rate Blood Pressure 135/76 H O2 Saturation 100 Oxygen O2 Source Room air - Rads (name of study) CT of the head is unremarkable Relevant Findings:: Final report received, EMP independent interpretation of test PD Medical Decision Making - ED course ED course: Abrasions on face and right knee had some topical Lidocaine placed on them and then I irrigated and scrubbed. She was counseled on wound care. Departure - Departure Disposition: 01 Home, Self Care Clinical Impression: Facial abrasion Qualifiers: Encounter type: initial encounter Qualified Code(s): S00.81XA - Abrasion of other part of head, initial encounter Concussion Qualifiers: Encounter type: initial encounter Loss of consciousness presence/duration: with LOC of 30 min or less Qualified Code(s): S06.0X1A - Concussion with loss of consciousness of 30 minutes or less, initial encounter Condition: Good Record reviewed to determine appropriate education?: Yes Instructions: ED Abrasion, ED Head Injury Closed Comments: For the abrasions, you can wash gently with soap and water, then apply bacitracin ointment which is available [id number] and keep covered with a Band-Aid. You probably have to do this daily for a week or 2 but this should all heal without much scarring. Discharge Date/Time: 03/08/23 21:52
[2023-03-08] MEDS ORDERED: BACITRACIN ZINC OINT 1 PACKET TOP STA (21:38)
--- NOTE | 2023-03-08 21:55 | CT Report ---
PROCEDURE: HEAD WO INDICATIONS: head inj TECHNIQUE: Noncontrast 4.5 mm thick angled axial sections acquired from the foramen magnum to the vertex. For r adiation dose reduction, the following was used: automated exposure control, adjustment of mA and/or kV according to patient size. COMPARISON: CT head 01/11/2021. FINDINGS: Image quality: Excellent. CSF spaces: Basal cisterns are patent. An arachnoid cyst is redemonstrated within the posterior narcisa a. Ventricles are normal in size and shape. Brain: No intracranial hemorrhage, mass, or mass effect. Sumner-white matter interface appears preser riya. Skull and face: Calvarium and visualized facial bones are intact, without suspicious lesions. Sinuses: Visualized sinuses and mastoids are clear. IMPRESSION: 1. No acute intrcranial abnormality. Reviewed by: Quan Arcos MD on 03/08/2023 9:54 PM PDT Approved by: Quan Arcos MD on 03/08/2023 9:54 PM PDT Station ID: [id number]
== END 2023-03-08 21:52 | disposition home or self-care (01) ==
LOC: ED 19:52
DX: S06.0X1A Concussion with loss of consciousness of 30 minutes or less, initial encounter (principal); S00.81XA Abrasion of other part of head, initial encounter; S80.211A Abrasion, right knee, initial encounter; S80.212A Abrasion, left knee, initial encounter; W01.0XXA Fall on same level from slipping, tripping and stumbling without subsequent striking against object, initial encounter; I10 Essential (primary) hypertension; E78.00 Pure hypercholesterolemia, unspecified; F17.200 Nicotine dependence, unspecified, uncomplicated; Z79.899 Other long term (current) drug therapy
CPT/HCPCS: 70450; 99283; 99284; A9270

== ENCOUNTER 2023-03-16 10:29 | Outpatient (CLI) | payer MEDICAID | END 2023-03-16 10:30 | disposition home or self-care (01) | LOC: NS 10:29 | PROVIDERS: ATTEND Nurse Practitioner | DX: Z71.3 Dietary counseling and surveillance (principal); E46 Unspecified protein-calorie malnutrition; Z68.1 Body mass index [BMI] 19.9 or less, adult | CPT/HCPCS: 97802 ==

== ENCOUNTER 2023-04-28 10:23 | Outpatient (CLI) | payer MEDICAID | END 2023-04-28 10:24 | disposition home or self-care (01) | LOC: NS 10:23 | PROVIDERS: ATTEND Nurse Practitioner | DX: Z71.3 Dietary counseling and surveillance (principal); E46 Unspecified protein-calorie malnutrition | CPT/HCPCS: 97803 ==

== ENCOUNTER 2023-05-05 09:53 | Outpatient (CLI) | payer MEDICAID | END 2023-05-05 09:54 | disposition critical access hospital (66) | LOC: EMS 09:53 | DX: R10.31 Right lower quadrant pain (principal); R11.2 Nausea with vomiting, unspecified; R53.1 Weakness; R51.9 Headache, unspecified | CPT/HCPCS: A0425; A0427; A0999 ==

== ENCOUNTER 2023-05-05 10:03 | Emergency (ER) | payer MEDICAID ==
[2023-05-05 10:28] LABS: BASOPHILS # (AUTO) 0.1 10^3/uL (0.0-0.1); BASOPHILS % (AUTO) 0.6 %; EOSINOPHILS % (AUTO) 0.2 %; HCT - HEMATOCRIT 35.7 % (37.0-47.0); HGB - HEMOGLOBIN 12.1 g/dL (12.0-16.0); LYMPHOCYTES # (AUTO) 2.2 10^3/uL (1.5-3.5); LYMPHOCYTES % (AUTO) 22.3 %; MEAN CORPUSCULAR HEMOGLOBIN 36.6 pg (27.0-31.0); MEAN CORPUSCULAR HGB CONC 33.9 g/dL (32.0-36.0); MEAN CORPUSCULAR VOLUME 107.9 fL (81.0-99.0); MEAN PLATELET VOLUME 8.7 fL (7.9-10.8); MONOCYTES # (AUTO) 0.5 10^3/uL (0.0-1.0); MONOCYTES % (AUTO) 4.8 %; NEUTROPHILS # (AUTO) 7.2 10^3/uL (1.5-6.6); NEUTROPHILS % (AUTO) 71.8 %; PLT - PLATELET COUNT 409 10^3/uL (130-450); RED BLOOD COUNT 3.31 10^6/uL (4.20-5.40)
[2023-05-05 10:43] LABS: ALBUMIN/GLOBULIN RATIO 1.1 (1.0-2.2); BILIRUBIN,TOTAL 0.5 mg/dL (0.2-1.0); CALCIUM 8.7 mg/dL (8.5-10.3); CREATININE 0.5 mg/dL (0.6-1.3); POTASSIUM 3.4 mmol/L (3.5-4.5); TOTAL PROTEIN 5.7 g/dL (6.4-8.9)
[2023-05-05 11:06] VITALS: O2SAT 100
[2023-05-05] MEDS ORDERED: ONDANSETRON 4 MG/2 ML VIAL IVP STA (11:10)
[2023-05-05] MEDS ORDERED: SODIUM CHLORIDE 0.9% 1,000 ML IV STA (11:10)
[2023-05-05] MEDS ORDERED: MORPHINE 2 MG/ML CARPUJECT IVP STA (11:10)
[2023-05-05 11:14] LABS: BILIRUBIN,URINE NEGATIVE (NEGATIVE); GLUCOSE, URINE (UA) NEGATIVE (NEGATIVE); KETONES,URINE (UA) NEGATIVE (NEGATIVE); LEUKOCYTE ESTERASE, URINE NEGATIVE (NEGATIVE); NITRITE,URINE NEGATIVE (NEGATIVE); OCCULT BLOOD,URINE NEGATIVE (NEGATIVE); PROTEIN,URINE NEGATIVE (NEGATIVE); UROBILINOGEN,URINE 0.2 (NORMAL) E.U./dL (NORMAL)
[2023-05-05 11:18] LABS: CLARITY,URINE CLEAR (CLEAR); HCG UR QUAL NEGATIVE
[2023-05-05] MEDS ORDERED: HYDROmorphone 1 MG/ML CARPUJECT IVP STA (11:54)
[2023-05-05] MEDS ORDERED: KETOROLAC 30 MG/ML VIAL IVP STA (13:02)
--- NOTE | 2023-05-05 13:13 | ED Physician Documentation ---
PD HPI ABD PAIN - Stated complaint Stated Complaint: ABD PX - Chief complaint Chief Complaint: Abd Pain - History obtained from History obtained from: Patient - Additional information Additional information: Patient is a 48-year-old female with a history of pancreatitis (History of pancreatic duct stone and pancreatic ductal dilatation) presenting for evaluation of generalized abdominal pain with nausea, vomiting since yesterday and unable to keep anything down despite use of Reglan at home. Patient denies recent alcohol use. She states that she is supposed to have a procedure done to remove a pancreatic duct stent but is concerned that she has not been able to keep anything down and is supposed to gain weight. Other family members have recently tested positive for COVID. The patient states that her test has been negative. She denies URI symptoms, fever, dysuria, concerns for . GI is through Dr. Ceci Powell. From Last GI Note 03/29/23 1. Chronic pancreatitis-patient has a distal CBD stricture as a result of chronic pancreatitis that follows the track of the pancreas. At this time, patient did have a CBD stent that was placed which I feel is potential contributing to her symptoms at this time due to the nature of the biliary stricture. Given the severity of patient's symptoms at this time, I recommend stent removal at this time and I will also attempt to cannulate the pancreatic duct once more which was unsuccessful at as well likely due to the nature of the stones. It is appearing that patient is likely going to be someone who benefits from a piece still however, patient does need to quit smoking and we discussed this extensively. Patient would also benefit from EUS guided celiac plexus block - Proceed with EUS/ERCP with plans for plexus block. We will proceed with an endoscopic ultrasound with a celiac plexus block. We will also plan to remove the stent as well. I will also try to remove the stones from the pancreas. 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) : None HEENT: Other Psych: Depression, Anxiety Musculoskeletal: Chronic back pain Derm: None - Past Surgical History Past Surgical History: Yes General: Other /SHOE WORKER: Other - Present Medications Home Medications: Ambulatory Orders Medication Instructions Recorded Confirmed Albuterol Sulfate [Albuterol 2 puffs IH Q4H PRN 05/06/20 11/21/22 Sulfate Hfa] Ibuprofen [Motrin] 800 mg PO Q6H PRN 11/29/21 11/21/22 Pnv No.121/Iron/Folic Acid 1 each PO DAILY #30 tablet 12/01/21 11/21/22 [ Multivitamin Tablet] Thiamine [Vitamin B-1] 100 mg PO DAILY #30 tablet 12/01/21 11/21/22 Omeprazole 40 mg PO DAILY #30 cap 01/01/22 11/21/22 Acetaminophen [Tylenol] 1,000 mg PO Q6H PRN 11/21/22 11/21/22 Calcium Carbonate [Tums (Calcium 500 mg PO Q4-6H 11/21/22 11/21/22 Carbonate 500mg)] Colestipol HCl [Colestid] 2 gm PO BID 11/21/22 11/21/22 Lipase/Protease/Amylase [Zenpep Dr 1 cap PO TIDWM 11/21/22 11/21/22 20,000 Unit Capsule] Metoclopramide [Reglan] 10 mg PO TID PRN 11/21/22 11/21/22 Ondansetron Odt [Zofran Odt] 4 mg PO TID PRN 11/21/22 11/21/22 Potassium Chloride [K-Dur] 10 meq PO DAILY 11/21/22 11/21/22 HYDROmorphone [Dilaudid] 2 mg PO Q8H PRN #20 tablet 11/27/22 Ondansetron Odt [Zofran Odt] 4 mg TL Q6HR PRN #14 tab 11/27/22 Sulfamethox/Trimeth 800/160 1 each PO BID #14 tablet 11/29/22 [Bactrim Ds 800/160] Oxycodone HCl/Acetaminophen 1 each PO Q6H PRN #14 tablet MDD 6 03/24/23 [Percocet 5-325 mg Tablet] tabs Ondansetron Odt [Zofran] 4 mg TL Q6H PRN #10 tablet 05/05/23 oxyCODONE [Roxicodone] 5 mg PO Q6H PRN #15 tablet 05/05/23 - Allergies Allergies/Adverse Reactions: Allergies Allergy/AdvReac Type Severity Reaction Status Date / Time No Known Drug Allergies Allergy Verified 03/24/23 15:01 - Social History Does the pt smoke?: Yes Smoking Status: Current every day smoker Does the pt drink ETOH?: Yes Does the pt have substance abuse?: No - Immunizations Immunizations are current?: Yes Immunizations: TDAP >10years/unknown - POLST Patient has POLST: No POLST Status: Full Code PD ED PE NORMAL - General General: Alert and oriented X 3, No acute distress, Other (Well-developed, low BMI) - HEENT HEENT: Atraumatic - Neck Neck: Supple, no meningeal sign - Cardiac Cardiac: RRR, No murmur - Respiratory Respiratory: No respiratory distress, Clear bilaterally - Abdomen Abdomen: Normal bowel sounds, Soft, Non distended, Other (Right upper/lower quadrant and epigastric tenderness to palpation) - Derm Derm: Warm and dry - Neuro Neuro: Normal speech Results - Vitals Vitals: Vital Signs - 24 hr 05/05/23 05/05/23 05/05/23 10:05 11:29 13:31 Temperature 36.6 C Heart Rate 63 81 69 Respiratory 20 18 18 Rate Blood Pressure 132/71 H 156/94 H 147/96 H O2 Saturation 100 100 100 Oxygen O2 Source Room air - Labs Labs: Laboratory Tests 05/05/23 05/05/23 05/05/23 10:20 10:20 11:09 WBC 10.0 RBC 3.31 L Hgb 12.1 Hct 35.7 L MCV 107.9 H MCH 36.6 H MCHC 33.9 RDW 15.0 Plt Count 409 MPV 8.7 Neut # (Auto) 7.2 H Lymph # (Auto) 2.2 [place] # (Auto) 0.5 Eos # (Auto) 0.0 Baso # (Auto) 0.1 Absolute Nucleated RBC 0.00 Nucleated RBC % 0.0 Sodium 137 Potassium 3.4 L Chloride 105 Carbon Dioxide 24 Anion Gap 8.0 BUN 10 Creatinine 0.5 L Estimated GFR (MDRD) 133 Glucose 130 H Calcium 8.7 Total Bilirubin 0.5 AST 27 ALT 23 Alkaline Phosphatase 144 H Total Protein 5.7 L Albumin 3.0 L Globulin 2.7 Albumin/Globulin Ratio 1.1 Lipase 12 Urine Color DARK YELLOW Urine Clarity CLEAR Urine pH 5.0 Ur Specific [place] >=1.030 H Urine Protein NEGATIVE Urine Glucose (UA) NEGATIVE Urine Ketones NEGATIVE Urine Occult Blood NEGATIVE Urine Nitrite NEGATIVE Urine Bilirubin NEGATIVE Urine Urobilinogen 0.2 (NORMAL) Ur Leukocyte Esterase NEGATIVE Ur Microscopic Review NOT INDICATED Urine Culture Comments NOT INDICATED Urine HCG, Qual NEGATIVE PD Medical Decision Making - ED course Complexity details: reviewed results, re-evaluated patient, d/w patient ED course: Patient is a 48-year-old female with a history of chronic pancreatitis presenting for evaluation of nausea and vomiting for the past 24 hours and worsening pain. Patient reports that she has daily pain that she gets prescription of tramadol for which has not been helping. She is not been able to keep down any intake since yesterday. CBC, chemistry, urinalysis were obtained and reviewed. CT of the abdomen and pelvis was also obtained with acute versus subacute pancreatitis. Patient is feeling better here after IV fluids, IV Zofran, IV morphine and Dilaudid and Toradol. She was able to tolerate a p.o. challenge. Reviewed the case with on-call GI at [facility]. She is comfortable with managing her symptoms at home with pain and nausea medications. She understands the importance of close GI follow-up as well as concerning symptoms to return for. 1343 - Dr. Agarwal (GI, [facility]) - Reviewed current work-up today and Dr. Ornelas's upcoming plans. Does not feel there is any need for immediate transfer or urgent intervention. Recommends symptom control and close follow up. 1420 - Pt tolerated PO challenge with water. Departure - Departure Disposition: 01 Home, Self Care Clinical Impression: Acute on chronic pancreatitis Condition: Stable Instructions: Pancreatitis Chronic Dc Follow-Up: SHERRY ORNELAS MD [Physician No Access] - Prescriptions: oxyCODONE [Roxicodone] 5 mg PO Q6H PRN #15 tablet PRN Reason: Pain Ondansetron Odt [Zofran] 4 mg TL Q6H PRN #10 tablet PRN Reason: Nausea / Vomiting Comments: I have sent prescriptions for pain and nausea medications to [facility] in [place]. Please have close follow-up with your GI doctor. Please start with a clear liquid diet and advance as tolerated. Return to the ER with any worsening symptoms. I am prescribing a short course of narcotic pain medication for you. These are potentially dangerous and addictive medications that should be used carefully. These medications may constipate you. Take an xrjz-lji-jtnuisn stool softener (docusate) twice daily with plenty of water while taking these medications. If you go 24 hours without a bowel movement, take [id number]-ubxtipq miralax, per package instructions. Do not drink or drive while taking these medications. If you received narcotic or sedating medications while in the emergency department, do not drive for 24 hours. Store this medication in a safe, secure place and out of reach of children. It is a violation of federal law to give or sell this medication to another person or to use in a manner other than prescribed. The ED will not refill narcotic prescriptions, including prescriptions lost or stolen. To dispose of unwanted medications: 1. [facility] at [address] [facility] in [place] has a medication drop box. They accept prescription medications (in pill form) Tuesday through Tuesday 9:00 a.m. to 5:00 p.m. 2. [facility] [employer] accepts prescription medications (in pill form only) for disposal year round. Call for more information. 3. Contact the [facility] for the next [facility] sponsored prescription drug collection event. , [phone], or [phone]; Note that many narcotic pain relievers also contain Tylenol/acetaminophen. Please ensure that your total dose of acetaminophen from all sources does not exceed 3 g (3000 mg) per day. Forms: PCP List Discharge Date/Time: 05/05/23 14:39
[2023-05-05 13:32] VITALS: BP 147/96
--- NOTE | 2023-05-05 13:32 | CT Report ---
PROCEDURE: ABDOMEN/PELVIS W INDICATIONS: R sided abd pain CONTRAST: 100ml Rangel 300 TECHNIQUE: After the administration of IV contrast, 5 mm thick sections acquired from the diaphragms to the symp hysis. 5 mm thick coronal and sagittal reformats were acquired. For radiation dose reduction, the f ollowing was used: automated exposure control, adjustment of mA and/or kV according to patient size. COMPARISON: CT abdomen pelvis 11/20/2022 FINDINGS: Image quality: Excellent. Lung bases and heart: Unremarkable. Liver: No solid mass. Hepatic steatosis is present. Pneumobilia is present particularly within the le ft lobe. Gallbladder and biliary tree: Gallbladder is distended. There is appearance of air within the nondepe ndent portion, new. Common bile duct stent is present, new compared to prior exam. Spleen: No splenomegaly. Pancreas: There is prominent calcifications throughout the pancreas most prominent in the pancreatic head. Ductal dilation is present measuring 1 cm. Overall appearance is unchanged. There is a mildly e dematous appearance of the pancreatic head/uncinate process as well as proximal body. Adrenals: No adrenal nodule. Kidneys and ureters: No hydronephrosis. No renal cystic lesion which requires follow up. No solid mas s. Bowel and peritoneum: No bowel distension. Minimal dependent pelvic fluid is present. Lymph nodes: No central or retroperitoneal adenopathy. Vessels: No infrarenal aortic aneurysm. PELVIS Reproductive organs: Unremarkable. Bladder: No abnormal wall thickening, accounting for underdistension. Pelvic lymph nodes: No pelvic adenopathy by size criteria. Bones: No aggressive osseous abnormality. Other: No significant ventral or inguinal hernia. IMPRESSION: Mild edematous appearance without peripancreatic organized fluid collection of the proximal body as w ell as pancreatic head/uncinate process. There is significant pancreatic calcifications and stable du ctal dilation. Appearance is suggestive of acute/subacute on chronic pancreatitis. Common bile duct stent is been placed. Hepatic pneumobilia. Mild air is present in the nondependent portion possibly related to stent placement. Reviewed by: Poly Benjamin MD on 05/05/2023 1:31 PM PDT Approved by: Poly Benjamin MD on 05/05/2023 1:31 PM PDT Station ID: [id number]
[2023-05-05] MEDS ORDERED: iohexoL-300 100 ML VIAL IVP ONE (15:06)
== END 2023-05-05 14:39 | disposition home or self-care (01) ==
LOC: EDUNIT# → ED 10:03
DX: K85.90 Acute pancreatitis without necrosis or infection, unspecified (principal); K86.1 Other chronic pancreatitis; I10 Essential (primary) hypertension; E78.00 Pure hypercholesterolemia, unspecified; F17.200 Nicotine dependence, unspecified, uncomplicated; Z79.899 Other long term (current) drug therapy
CPT/HCPCS: 36415; 74177; 80053; 81003; 81025; 83690; 85025; 96374; 96375; 99284; J1170; Q9967; 81001; 87086

== ENCOUNTER 2023-05-11 21:25 | Emergency (ER) | payer MEDICAID ==
[2023-05-11] MEDS ORDERED: oxyCODONE/ACET 5/325 Prepack 4 PO STA (22:25)
--- NOTE | 2023-05-11 22:29 | ED Physician Documentation ---
History of Present Illness - Stated complaint Stated Complaint: HEADACHE, STOMACH PX - Chief complaint Chief Complaint: Abd Pain - History obtained from History obtained from: Patient - Additonal information Additional information: 48yF with pmh chronic RUQ pain presents with similar pain today. she states her Primary care provider prescribes her tramadol but she has been having trouble with preauthorization and has not been able to fill her prescription. Also with chronic urinary hesitancy and difficulty fully voiding that is in the process of work-up by her primary care provider. She states they have not found the cause. Patient also endorses mild frontal headache and photosensitivity as well as nausea but states that her COVID test was negative so far despite daughter with positive COVID test. Denies vomiting, diarrhea, fever, cough, chest pain or shortness of breath. 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) : None HEENT: Other Psych: Depression, Anxiety Musculoskeletal: Chronic back pain Derm: None - Past Surgical History Past Surgical History: Yes General: Other /MEDICAL SERVICES ASSISTANT: Other - Present Medications Home Medications: Ambulatory Orders Medication Instructions Recorded Confirmed Albuterol Sulfate [Albuterol 2 puffs IH Q4H PRN 05/06/20 11/21/22 Sulfate Hfa] Ibuprofen [Motrin] 800 mg PO Q6H PRN 11/29/21 11/21/22 Pnv No.121/Iron/Folic Acid 1 each PO DAILY #30 tablet 12/01/21 11/21/22 [ Multivitamin Tablet] Thiamine [Vitamin B-1] 100 mg PO DAILY #30 tablet 12/01/21 11/21/22 Omeprazole 40 mg PO DAILY #30 cap 01/01/22 11/21/22 Acetaminophen [Tylenol] 1,000 mg PO Q6H PRN 11/21/22 11/21/22 Calcium Carbonate [Tums (Calcium 500 mg PO Q4-6H 11/21/22 11/21/22 Carbonate 500mg)] Colestipol HCl [Colestid] 2 gm PO BID 11/21/22 11/21/22 Lipase/Protease/Amylase [Zenpep Dr 1 cap PO TIDWM 11/21/22 11/21/22 20,000 Unit Capsule] Metoclopramide [Reglan] 10 mg PO TID PRN 11/21/22 11/21/22 Ondansetron Odt [Zofran Odt] 4 mg PO TID PRN 11/21/22 11/21/22 Potassium Chloride [K-Dur] 10 meq PO DAILY 11/21/22 11/21/22 HYDROmorphone [Dilaudid] 2 mg PO Q8H PRN #20 tablet 11/27/22 Ondansetron Odt [Zofran Odt] 4 mg TL Q6HR PRN #14 tab 11/27/22 Sulfamethox/Trimeth 800/160 1 each PO BID #14 tablet 11/29/22 [Bactrim Ds 800/160] Oxycodone HCl/Acetaminophen 1 each PO Q6H PRN #14 tablet MDD 6 03/24/23 [Percocet 5-325 mg Tablet] tabs Ondansetron Odt [Zofran] 4 mg TL Q6H PRN #10 tablet 05/05/23 oxyCODONE [Roxicodone] 5 mg PO Q6H PRN #15 tablet 05/05/23 - Allergies Allergies/Adverse Reactions: Allergies Allergy/AdvReac Type Severity Reaction Status Date / Time No Known Drug Allergies Allergy Verified 05/11/23 21:36 - Social History Does the pt smoke?: Yes Smoking Status: Current every day smoker Does the pt drink ETOH?: Yes Does the pt have substance abuse?: No - Immunizations Immunizations are current?: Yes Immunizations: TDAP >10years/unknown - POLST Patient has POLST: No POLST Status: Full Code PD ED PE NORMAL - Vitals Vital signs reviewed: Yes - General General: Alert and oriented X 3, No acute distress, Well developed/nourished - HEENT HEENT: Atraumatic, PERRL, EOMI - Neck Neck: Supple, no meningeal sign - Cardiac Cardiac: RRR - Respiratory Respiratory: No respiratory distress, Clear bilaterally - Abdomen Abdomen: Non tender, Non distended, Other (Discomfort diffusely to palpation) Results - Vitals Vitals: Vital Signs - 24 hr 05/11/23 21:30 Temperature 37.0 C Heart Rate 96 Respiratory 20 Rate Blood Pressure 157/91 H O2 Saturation 99 Oxygen O2 Source Room air PD Medical Decision Making - ED course ED course: 48-year-old woman with hx chronic pancreatitis presents with several chronic symptoms today and issues filling pain medication prescribed by her primary care provider. After discussion of options she declined blood work since she just had blood work and ct a week ago and has had no change in her symptoms since that time. Also stated that she can follow-up with Her primary care provider for referral to urology regarding her chronic urinary symptoms which have already been worked up extensively. Return precautions discussed. Symptomatic care discussed. Departure - Departure Disposition: 01 Home, Self Care Clinical Impression: Headache, Body aches, Abdominal pain Condition: Stable Instructions: Abdominal Pain Follow-Up: Mary Palmer MD [Physician No Access] - Comments: You were seen in the emergency department for multiple medical issues including chronic abdominal pain. Please follow-up with your primary care provider and return to the emergency department if you have any new or worsening symptoms or other concerns. Referral was also provided to a urologist for your urinary issues. Forms: PCP List
[2023-05-11 22:56] VITALS: BP 139/95; O2SAT 98
== END 2023-05-11 22:57 | disposition home or self-care (01) ==
LOC: ED 21:25
DX: R51.9 Headache, unspecified (principal); R10.11 Right upper quadrant pain; I10 Essential (primary) hypertension; F17.200 Nicotine dependence, unspecified, uncomplicated
CPT/HCPCS: 80053; 83690; 85025; 99282; 99283

== ENCOUNTER 2023-05-12 15:50 | Emergency (ER) | payer MEDICAID ==
[2023-05-12] MEDS ORDERED: HYDROmorphone 1 MG/ML CARPUJECT IVP STA (15:58)
[2023-05-12] MEDS ORDERED: KETOROLAC 30 MG/ML VIAL IVP STA (15:58)
[2023-05-12] MEDS ORDERED: SODIUM CHLORIDE 0.9% 1,000 ML IV STA (15:58)
[2023-05-12] MEDS ORDERED: DROPERIDOL 5 MG/2 ML VIAL IVP STA (15:58)
--- NOTE | 2023-05-12 16:13 | ED Physician Documentation ---
PD HPI HEADACHE - Stated complaint Stated Complaint: HEADACHE, VOMITING - Chief complaint Chief Complaint: Heent - History obtained from History obtained from: Patient - Additional information Additional information: The patient comes to the emergency department with chief complaint of headache, nausea, and vomiting. The patient has both chronic migraines and chronic abdominal pain, nausea and vomiting. 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 She has a common bile duct stent which was supposed to be removed tomorrow but the patient states her whole family got COVID and also, she is not feeling well with her headache and vomiting, so she canceled the procedure. The patient states that she has taken 2 COVID tests already and they have been negative. The patient denies fevers or chills. She denies any diarrhea. No blood in her vomitus. No other complaints at this time. 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, 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) : None HEENT: Other Psych: Depression, Anxiety Musculoskeletal: Chronic back pain Derm: None - Past Surgical History Past Surgical History: Yes General: Other /GARMENT SORTER: Other - Present Medications Home Medications: Ambulatory Orders Medication Instructions Recorded Confirmed Albuterol Sulfate [Albuterol 2 puffs IH Q4H PRN 05/06/20 05/12/23 Sulfate Hfa] Ibuprofen [Motrin] 800 mg PO Q6H PRN 11/29/21 05/12/23 Pnv No.121/Iron/Folic Acid 1 each PO DAILY #30 tablet 12/01/21 05/12/23 [ Multivitamin Tablet] Thiamine [Vitamin B-1] 100 mg PO DAILY #30 tablet 12/01/21 05/12/23 Omeprazole 40 mg PO DAILY #30 cap 01/01/22 05/12/23 Acetaminophen [Tylenol] 1,000 mg PO Q6H PRN 11/21/22 05/12/23 Calcium Carbonate [Tums (Calcium 500 mg PO Q4-6H 11/21/22 05/12/23 Carbonate 500mg)] Colestipol HCl [Colestid] 2 gm PO BID 11/21/22 05/12/23 Lipase/Protease/Amylase [Zenpep Dr 1 cap PO TIDWM 11/21/22 05/12/23 20,000 Unit Capsule] Metoclopramide [Reglan] 10 mg PO TID PRN 11/21/22 05/12/23 Ondansetron Odt [Zofran Odt] 4 mg PO TID PRN 11/21/22 05/12/23 Potassium Chloride [K-Dur] 10 meq PO DAILY 11/21/22 05/12/23 HYDROmorphone [Dilaudid] 2 mg PO Q8H PRN #20 tablet 11/27/22 05/12/23 Sulfamethox/Trimeth 800/160 1 each PO BID #14 tablet 11/29/22 05/12/23 [Bactrim Ds 800/160] Oxycodone HCl/Acetaminophen 1 each PO Q6H PRN #14 tablet MDD 6 03/24/23 05/12/23 [Percocet 5-325 mg Tablet] tabs oxyCODONE [Roxicodone] 5 mg PO Q6H PRN #15 tablet 05/05/23 05/12/23 - Allergies Allergies/Adverse Reactions: Allergies Allergy/AdvReac Type Severity Reaction Status Date / Time No Known Drug Allergies Allergy Verified 05/12/23 15:59 - Social History Does the pt smoke?: Yes Smoking Status: Current every day smoker Does the pt drink ETOH?: Yes Does the pt have substance abuse?: No - Immunizations Immunizations are current?: Yes Immunizations: TDAP >10years/unknown - POLST Patient has POLST: No POLST Status: Full Code PD ED PE NORMAL - Vitals Vital signs reviewed: Yes - General General: Alert and oriented X 3, No acute distress, Other (Emaciated female who appears uncomfortable but otherwise no apparent distress.) - HEENT HEENT: Atraumatic, PERRL, EOMI, Moist mucous membranes - Neck Neck: Supple, no meningeal sign - Cardiac Cardiac: RRR, No murmur, Strong equal pulses - Respiratory Respiratory: No respiratory distress, Clear bilaterally - Abdomen Abdomen: Soft, Non distended, Other (Mild diffuse tenderness, no rebound or guarding) - Derm Derm: Warm and dry, Other (Moderate pallor.) - Extremities Extremities: No deformity - 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 - Psych Psych: Normal mood, Normal affect Results - Vitals Vitals: Vital Signs - 24 hr 05/12/23 05/12/23 15:57 16:20 Temperature 36.8 C Heart Rate 111 H 65 Respiratory 22 21 Rate Blood Pressure 125/81 H 147/91 H O2 Saturation 99 95 Oxygen O2 Source Room air PD Medical Decision Making - ED course Complexity details: reviewed old records, reviewed results, re-evaluated patient, considered differential, d/w patient ED course: The patient appeared chronically in poor health but did not appear acutely ill. She was treated symptomatically with IV fluids, Toradol, droperidol, and Dilaudid. I reviewed her records from her visit yesterday. The patient was reevaluated after symptomatic treatment and stated she was feeling quite a bit better, though still had somewhat of a headache. I have given her 1 more small dose of Dilaudid at 0.5 mg and the patient stable for discharge. We have discussed the need for follow-up with gastroenterology to reschedule her procedure. We have also discussed interfacing with her primary doctor regarding her home medications. We have discussed the usual indications for return. Departure - Departure Disposition: 01 Home, Self Care Clinical Impression: Headache Qualifiers: Headache type: unspecified Headache chronicity pattern: acute headache Intractability: not intractable Qualified Code(s): R51.9 - Headache, unspecified Vomiting Qualifiers: Vomiting type: bilious vomiting Nausea presence: with nausea Qualified Code(s): R11.14 - Bilious vomiting Condition: Stable Instructions: ED Headache Migraine, ED Nausea Vomiting Comments: You have been treated for your headache and yourNausea and vomiting today. It is important that you get plenty of fluids. Please follow-up with your primary doctor regarding your home medications. Forms: PCP List
[2023-05-12] MEDS ORDERED: HYDROmorphone 0.5 MG/0.5 ML SYRINGE IVP STA (17:06)
[2023-05-12 17:50] VITALS: BP 107/80; O2SAT 96
== END 2023-05-12 17:46 | disposition home or self-care (01) ==
LOC: ED 15:50
DX: R51.9 Headache, unspecified (principal); R11.2 Nausea with vomiting, unspecified; I10 Essential (primary) hypertension; F17.200 Nicotine dependence, unspecified, uncomplicated
CPT/HCPCS: 96374; 96375; 96376; 99283; J1170

== ENCOUNTER 2023-06-10 18:34 | Emergency (ER) | payer MEDICAID ==
[2023-06-10] MEDS ORDERED: traMADol 50 MG TABLET PO STA (18:56)
[2023-06-10 18:59] LABS: BASOPHILS # (AUTO) 0.1 10^3/uL (0.0-0.1); BASOPHILS % (AUTO) 0.9 %; EOSINOPHILS # (AUTO) 0.2 10^3/uL (0.0-0.7); HCT - HEMATOCRIT 35.3 % (37.0-47.0); LYMPHOCYTES # (AUTO) 4.4 10^3/uL (1.5-3.5); LYMPHOCYTES % (AUTO) 44.2 %; MEAN CORPUSCULAR HEMOGLOBIN 37.3 pg (27.0-31.0); MEAN CORPUSCULAR VOLUME 109.6 fL (81.0-99.0); MEAN PLATELET VOLUME 8.3 fL (7.9-10.8); MONOCYTES # (AUTO) 0.6 10^3/uL (0.0-1.0); MONOCYTES % (AUTO) 6.1 %; NEUTROPHILS # (AUTO) 4.6 10^3/uL (1.5-6.6); NEUTROPHILS % (AUTO) 46.5 %; PLT - PLATELET COUNT 460 10^3/uL (130-450); RED BLOOD COUNT 3.22 10^6/uL (4.20-5.40); RED CELL DISTRIBUTION WIDTH 15.3 % (12.0-15.0); WHITE BLOOD COUNT 9.9 x10^3/uL (4.8-10.8)
[2023-06-10] MEDS ORDERED: HYDROmorphone 0.5 MG/0.5 ML SYRINGE IVP STA (18:59)
--- NOTE | 2023-06-10 18:59 | ED Physician Documentation ---
History of Present Illness - Stated complaint Stated Complaint: ABD PX/SOA - Chief complaint Chief Complaint: Abd Pain - Additonal information Additional information: 48-year-old female comes to the emergency department for evaluation and tr eatment of her chronic abdominal pain. She does have a history of chronic pancreatitis as well as biliary stenosis for which she has a stent in place. The stent was to be removed in early May but had to be delayed due to COVID-19 infection. Patient is scheduled to see GI at [facility] for the stent removal on June 23, 2023. Patient states that typically she is using Zofran for nausea as well as tramadol for analgesia. In general the nausea is well controlled but she has been out of tramadol now for 4 to 5 days. Unable to see her PCP until next week. No diarrhea, no fevers. In general tolerating a diet. Review of Systems Respiratory: reports: Reviewed and negative GI: reports: Abdominal Pain, Nausea. 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, 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) : None HEENT: Other Psych: Depression, Anxiety Musculoskeletal: Chronic back pain Derm: None - Past Surgical History Past Surgical History: Yes General: Other /NETWORK DESIGN ARCHITECT: Other - Present Medications Home Medications: Ambulatory Orders Medication Instructions Recorded Confirmed Albuterol Sulfate [Albuterol 2 puffs IH Q4H PRN 05/06/20 05/12/23 Sulfate Hfa] Ibuprofen [Motrin] 800 mg PO Q6H PRN 11/29/21 05/12/23 Pnv No.121/Iron/Folic Acid 1 each PO DAILY #30 tablet 12/01/21 05/12/23 [ Multivitamin Tablet] Thiamine [Vitamin B-1] 100 mg PO DAILY #30 tablet 12/01/21 05/12/23 Omeprazole 40 mg PO DAILY #30 cap 01/01/22 05/12/23 Acetaminophen [Tylenol] 1,000 mg PO Q6H PRN 11/21/22 05/12/23 Calcium Carbonate [Tums (Calcium 500 mg PO Q4-6H 11/21/22 05/12/23 Carbonate 500mg)] Colestipol HCl [Colestid] 2 gm PO BID 11/21/22 05/12/23 Lipase/Protease/Amylase [Zenpep Dr 1 cap PO TIDWM 11/21/22 05/12/23 20,000 Unit Capsule] Metoclopramide [Reglan] 10 mg PO TID PRN 11/21/22 05/12/23 Ondansetron Odt [Zofran Odt] 4 mg PO TID PRN 11/21/22 05/12/23 Potassium Chloride [K-Dur] 10 meq PO DAILY 11/21/22 05/12/23 HYDROmorphone [Dilaudid] 2 mg PO Q8H PRN #20 tablet 11/27/22 05/12/23 Sulfamethox/Trimeth 800/160 1 each PO BID #14 tablet 11/29/22 05/12/23 [Bactrim Ds 800/160] Oxycodone HCl/Acetaminophen 1 each PO Q6H PRN #14 tablet MDD 6 03/24/23 05/12/23 [Percocet 5-325 mg Tablet] tabs oxyCODONE [Roxicodone] 5 mg PO Q6H PRN #15 tablet 05/05/23 05/12/23 ONDANSETRON ODT Prepack 2 [ZOFRAN 4 mg TL Q6H #30 tablet 06/10/23 ODT Prepack 2] traMADol [Ultram] 50 mg PO BID PRN #20 tablet 06/10/23 - Allergies Allergies/Adverse Reactions: Allergies Allergy/AdvReac Type Severity Reaction Status Date / Time No Known Drug Allergies Allergy Verified 06/10/23 18:37 - Social History Does the pt smoke?: Yes Smoking Status: Current every day smoker Does the pt drink ETOH?: Yes Does the pt have substance abuse?: No - Immunizations Immunizations are current?: Yes Immunizations: TDAP >10years/unknown - POLST Patient has POLST: No POLST Status: Full Code PD ED PE NORMAL - General General: Alert and oriented X 3. No: Well developed/nourished (Thin cachectic appearance) - HEENT HEENT: PERRL - Neck Neck: Supple, no meningeal sign - Cardiac Cardiac: RRR, No murmur - Respiratory Respiratory: No respiratory distress, Clear bilaterally - Abdomen Abdomen: Normal bowel sounds, Soft. No: Non tender (Mild upper abdominal tenderness without guarding or rebound most dominant on the right side. Negative Espinal's.) - Back Back: No CVA TTP - Derm Derm: Normal color - Extremities Extremities: No deformity - 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 Eye Opening: Spontaneous Motor: Obeys Commands Verbal: Oriented GCS Score: 15 Results - Vitals Vitals: Vital Signs - 24 hr 06/10/23 06/10/23 06/10/23 18:37 19:46 20:10 Temperature 37.1 C Heart Rate 90 70 71 Respiratory 16 18 18 Rate Blood Pressure 140/90 H 138/111 H 143/104 H O2 Saturation 99 100 99 Oxygen O2 Source Room air - Labs Labs: Laboratory Tests 06/10/23 06/10/23 18:52 18:52 WBC 9.9 RBC 3.22 L Hgb 12.0 Hct 35.3 L MCV 109.6 H MCH 37.3 H MCHC 34.0 RDW 15.3 H Plt Count 460 H MPV 8.3 Neut # (Auto) 4.6 Lymph # (Auto) 4.4 [place] # (Auto) 0.6 Eos # (Auto) 0.2 Baso # (Auto) 0.1 Absolute Nucleated RBC 0.00 Nucleated RBC % 0.0 Sodium 141 Potassium 4.4 Chloride 110 Carbon Dioxide 24 Anion Gap 7.0 BUN 8 Creatinine 0.6 Estimated GFR (MDRD) 108 Glucose 228 H Calcium 8.5 Total Bilirubin 0.5 AST 48 H ALT 27 Alkaline Phosphatase 151 H Total Protein 5.5 L Albumin 3.0 L Globulin 2.5 Albumin/Globulin Ratio 1.2 Lipase 27 PD Medical Decision Making - ED course Complexity details: reviewed results, re-evaluated patient, considered differential, d/w patient ED course: 48-year-old female presents emergency department for evaluation of acute on chronic abdominal pain. She does have a longstanding history of biliary stenting. She was to have the stents removed in mid May but developed COVID and missed the appointment. Neck scheduled for June 23. Typically she is using tramadol and Zofran at home for symptom control. Ran out of tramadol several days ago and since then has had poor pain control. No vomiting or fevers. On exam she did have some upper abdominal and right upper quadrant tenderness though no guarding or rebound. Her vital signs were reviewed today in the emergency department. No findings of fever tachycardia or hypotension. CBC and electrolytes as interpreted by myself showed no leukocytosis. Hemoglobin remained stable at 12. Her electrolytes revealed a glucose of 228 which is unchanged from baseline in the setting of known diabetes. Bilirubin was not elevated. AST is 48 ALT is 27. Here in the emergency department I administered her 0.5 mg of Dilaudid as well as a single dose of tramadol and on reevaluation she reports her pain is resolved and feels ready to go home. She will be discharged with a [place] prepack for tonight and a prescription for limited amount of tramadol and on gestrinone has been sent to the preferred pharmacy. She is advised very close follow-up with her GI surgeons at [facility]. The usual emergent return precautions for worsening symptoms here was discussed Departure - Departure Disposition: 01 Home, Self Care Clinical Impression: Chronic abdominal pain, History of biliary stent insertion Condition: Stable Record reviewed to determine appropriate education?: Yes Prescriptions: traMADol [Ultram] 50 mg PO BID PRN #20 tablet PRN Reason: Pain >8 ONDANSETRON ODT Prepack 2 [ZOFRAN ODT Prepack 2] 4 mg TL Q6H #30 tablet Comments: Jerica you are seen today in the emergency department for worsening abdominal pain after running out of your pain medication several days ago. Your labs today did not show any worrisome findings. We are writing a prescription for limited amount of the tramadol as well as the Zofran. This has been sent to the [facility] in [place]. It is very critical that you continue to follow with your GI surgeons at [facility] regarding your biliary stenting. Please do not miss your follow-up appointment. Return to the ER if you develop fevers, have worsening abdominal pain at home despite this medication, uncontrolled vomiting or any other emergent concerns. Forms: PCP List
[2023-06-10 19:12] LABS: ALBUMIN/GLOBULIN RATIO 1.2 (1.0-2.2); BILIRUBIN,TOTAL 0.5 mg/dL (0.2-1.0); CALCIUM 8.5 mg/dL (8.5-10.3); CREATININE 0.6 mg/dL (0.6-1.3); POTASSIUM 4.4 mmol/L (3.5-4.5); TOTAL PROTEIN 5.5 g/dL (6.4-8.9)
[2023-06-10] MEDS ORDERED: HYDROcod/ACET 5/325 Prepack 4 PO STA (20:10)
[2023-06-10] MEDS ORDERED: ONDANSETRON ODT 4 MG Prepack 2 TL PRN (20:10)
[2023-06-10 20:11] VITALS: BP 143/104; O2SAT 99
== END 2023-06-10 20:27 | disposition home or self-care (01) ==
LOC: ED 18:34
DX: R10.9 Unspecified abdominal pain (principal); G89.29 Other chronic pain; R11.0 Nausea; F17.200 Nicotine dependence, unspecified, uncomplicated; Z96.89 Presence of other specified functional implants
CPT/HCPCS: 36415; 80053; 83690; 85025; 96374; 99283; 99284; A9270; J1170

== ENCOUNTER 2023-06-21 09:52 | Emergency (ER) | payer MEDICAID ==
[2023-06-21 10:55] LABS: BASOPHILS % (AUTO) 0.2 %; EOSINOPHILS % (AUTO) 0.1 %; HCT - HEMATOCRIT 31.9 % (37.0-47.0); HGB - HEMOGLOBIN 11.2 g/dL (12.0-16.0); LYMPHOCYTES # (AUTO) 1.3 10^3/uL (1.5-3.5); LYMPHOCYTES % (AUTO) 9.7 %; MEAN CORPUSCULAR HEMOGLOBIN 37.8 pg (27.0-31.0); MEAN CORPUSCULAR HGB CONC 35.1 g/dL (32.0-36.0); MEAN CORPUSCULAR VOLUME 107.8 fL (81.0-99.0); MEAN PLATELET VOLUME 8.2 fL (7.9-10.8); MONOCYTES # (AUTO) 0.4 10^3/uL (0.0-1.0); MONOCYTES % (AUTO) 2.9 %; NEUTROPHILS # (AUTO) 11.6 10^3/uL (1.5-6.6); NEUTROPHILS % (AUTO) 86.7 %; PLT - PLATELET COUNT 470 10^3/uL (130-450); RED BLOOD COUNT 2.96 10^6/uL (4.20-5.40); RED CELL DISTRIBUTION WIDTH 15.8 % (12.0-15.0); WHITE BLOOD COUNT 13.3 x10^3/uL (4.8-10.8)
[2023-06-21 11:09] LABS: ALBUMIN 2.9 g/dL (3.2-5.5); ALBUMIN/GLOBULIN RATIO 1.3 (1.0-2.2); ALKALINE PHOSPHATASE 163 IU/L (42-121); ALT ALANINE AMINOTRANSFERASE 43 IU/L (10-60); AST ASPARTATE AMINOTRANSFERASE 58 IU/L (10-42); BILIRUBIN,TOTAL 0.7 mg/dL (0.2-1.0); BUN - BLOOD UREA NITROGEN 4 mg/dL (6-20); CALCIUM 8.7 mg/dL (8.5-10.3); CARBON DIOXIDE - CO2 19 mmol/L (21-32); CHLORIDE 110 mmol/L (101-111); CREATININE 0.6 mg/dL (0.6-1.3); GFR - MDRD 108 (>89); GLUCOSE 111 mg/dL (74-104); POTASSIUM 3.3 mmol/L (3.5-4.5); SODIUM 141 mmol/L (135-145); TOTAL PROTEIN 5.2 g/dL (6.4-8.9)
[2023-06-21] MEDS ORDERED: DROPERIDOL 5 MG/2 ML VIAL IVP STA (11:13)
[2023-06-21 11:22] LABS: LIPASE < 10 U/L (11-82)
--- NOTE | 2023-06-21 11:49 | ED Physician Documentation ---
PD HPI ABD PAIN - Stated complaint Stated Complaint: ABD PX - Chief complaint Chief Complaint: Abd Pain - History obtained from History obtained from: Patient - Additional information Additional information: 48-year-old female with history of chronic pancreatitis with biliary stent in place presents by private vehicle for right upper quadrant abdominal pain. Patient states that she was supposed to see her GI doctor today for stent removal, stone removal, and pain injection, however because she was reporting increased pain they referred to the emergency department. Patient has been seen numerous times in the ER for similar complaint and stating that she could not make her GI appointment as it was canceled for various reasons. She receives multiple IV pain medications including narcotics and discharged with tramadol. Review of Systems Constitutional: denies: Fever, Chills GI: reports: Abdominal Pain. 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, 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) : None HEENT: Other Psych: Depression, Anxiety Musculoskeletal: Chronic back pain Derm: None - Past Surgical History Past Surgical History: Yes General: Other /PIPING DRAFTER: Other - Present Medications Home Medications: Ambulatory Orders Medication Instructions Recorded Confirmed Albuterol Sulfate [Albuterol 2 puffs IH Q4H PRN 05/06/20 06/21/23 Sulfate Hfa] Ibuprofen [Motrin] 800 mg PO Q6H PRN 11/29/21 06/21/23 Pnv No.121/Iron/Folic Acid 1 each PO DAILY #30 tablet 12/01/21 06/21/23 [ Multivitamin Tablet] Thiamine [Vitamin B-1] 100 mg PO DAILY #30 tablet 12/01/21 06/21/23 Acetaminophen [Tylenol] 1,000 mg PO Q6H PRN 11/21/22 06/21/23 Lipase/Protease/Amylase [Zenpep Dr 1 cap PO TIDWM 11/21/22 06/21/23 20,000 Unit Capsule] Ondansetron Odt [Zofran Odt] 4 mg PO TID PRN 11/21/22 06/21/23 Potassium Chloride [K-Dur] 10 meq PO DAILY 11/21/22 06/21/23 traMADol [Ultram] 50 mg PO BID PRN #20 tablet 06/10/23 06/21/23 Mirtazapine 15 mg PO HS 06/21/23 06/21/23 Ondansetron Odt [Zofran] 4 mg TL Q6H PRN #10 tablet 06/21/23 Pantoprazole [Protonix] 40 mg PO DAILY 06/21/23 06/21/23 traMADol [Ultram] 50 mg PO TID PRN #15 tab 06/21/23 - Allergies Allergies/Adverse Reactions: Allergies Allergy/AdvReac Type Severity Reaction Status Date / Time No Known Drug Allergies Allergy Verified 06/21/23 10:12 - Social History Does the pt smoke?: Yes Smoking Status: Current every day smoker Does the pt drink ETOH?: Yes Does the pt have substance abuse?: No - Immunizations Immunizations are current?: Yes Immunizations: TDAP >10years/unknown - POLST Patient has POLST: No POLST Status: Full Code PD ED PE NORMAL - Vitals Vital signs reviewed: Yes - General General: Alert and oriented X 3, Other (appears significantly older than stated age, underweight) - Cardiac Cardiac: RRR - Respiratory Respiratory: No respiratory distress, Clear bilaterally - Abdomen Abdomen: Soft, Other (generalized tendreness to deep palpation) - Derm Derm: Normal color, Warm and dry, No rash - Extremities Extremities: No deformity, No tenderness to palpate, Normal ROM s pain, No edema - Psych Psych: Normal mood, Normal affect Results - Vitals Vitals: Vital Signs - 24 hr 06/21/23 06/21/23 06/21/23 10:12 14:56 16:00 Temperature 36.2 C L 36.6 C Heart Rate 101 H 63 63 Respiratory 20 16 16 Rate Blood Pressure 116/92 H 148/81 H 138/74 H O2 Saturation 99 100 98 Oxygen O2 Source Room air - Labs Labs: Laboratory Tests 06/21/23 06/21/23 06/21/23 10:47 10:47 10:50 WBC 13.3 H RBC 2.96 L Hgb 11.2 L Hct 31.9 L MCV 107.8 H MCH 37.8 H MCHC 35.1 RDW 15.8 H Plt Count 470 H MPV 8.2 Neut # (Auto) 11.6 H Lymph # (Auto) 1.3 L [place] # (Auto) 0.4 Eos # (Auto) 0.0 Baso # (Auto) 0.0 Absolute Nucleated RBC 0.00 Nucleated RBC % 0.0 Sodium 141 Potassium 3.3 L Chloride 110 Carbon Dioxide 19 L Anion Gap 12.0 BUN 4 L Creatinine 0.6 Estimated GFR (MDRD) 108 Glucose 111 H Calcium 8.7 Total Bilirubin 0.7 AST 58 H ALT 43 Alkaline Phosphatase 163 H Total Protein 5.2 L Albumin 2.9 L Globulin 2.3 Albumin/Globulin Ratio 1.3 Lipase < 10 L Urine Color YELLOW Urine Clarity CLEAR Urine pH 5.0 Ur Specific [place] 1.025 Urine Protein NEGATIVE Urine Glucose (UA) NEGATIVE Urine Ketones TRACE Urine Occult Blood NEGATIVE Urine Nitrite NEGATIVE Urine Bilirubin NEGATIVE Urine Urobilinogen 0.2 (NORMAL) Ur Leukocyte Esterase TRACE H Urine RBC None Seen Urine WBC 0-3 Ur Squamous Epith Cells FEW Squamous Urine Bacteria Few Urine Mucus Few Strands Ur Microscopic Review INDICATED Urine Culture Comments INDICATED Urine HCG, Qual NEGATIVE PD Medical Decision Making - ED course Complexity details: reviewed old records, reviewed results, re-evaluated patient, considered differential, d/w patient ED course: This is a chronically unwell appearing patient with worsening of her chronic abdominal pain. Patient has known chronic pancreatitis due to alcohol use. Denies active alcohol use. Patient has documented drug-seeking behavior and frequently presents to the emergency department for narcotics after canceling GI appointments. No narcotics at this time. Laboratory work is reviewed, no significant abnormalities. Patient has chronic elevation in AST and alk phos, these are not significantly changed from priors. Pending CT of the abdomen pelvis. CT shows inflammation around the pancreas concerning for acute on chronic pancreatitis. Patient is resting comfortably in bed. Will give single dose of pain medications here, however she is resting comfortably, tolerating p.o., no indication for admission at this time. Small dose of pain medication sent to pharmacy. Patient was advised of the importance of following up with GI to get her stent removed as reportedly scheduled. She states that she has seen Dr. Ornelas at [facility] in the past. She was instructed to follow clear liquid/low fat diet at home. Departure - Departure Disposition: 01 Home, Self Care Clinical Impression: Acute on chronic pancreatitis Condition: Stable Instructions: Pancreatitis Chronic Dc, ED Pancreatitis Follow-Up: SHERRY ORNELAS MD [Physician No Access] - Prescriptions: traMADol [Ultram] 50 mg PO TID PRN #15 tab PRN Reason: Pain 5-7 Ondansetron Odt [Zofran] 4 mg TL Q6H PRN #10 tablet PRN Reason: Nausea / Vomiting Comments: Today your CT shows that you appear to have acute on top of your chronic pancreatitis. It is of the utmost importance that you follow-up with your GI doctor. If you do not follow-up with GI is likely that your symptoms will never improve. Prescriptions sent to [facility] in [place] Forms: PCP List Discharge Date/Time: 06/21/23 16:10
[2023-06-21 14:05] LABS: BILIRUBIN,URINE NEGATIVE (NEGATIVE); GLUCOSE, URINE (UA) NEGATIVE (NEGATIVE); KETONES,URINE (UA) TRACE mg/dL (NEGATIVE); LEUKOCYTE ESTERASE, URINE TRACE (NEGATIVE); NITRITE,URINE NEGATIVE (NEGATIVE); OCCULT BLOOD,URINE NEGATIVE (NEGATIVE); PROTEIN,URINE NEGATIVE (NEGATIVE); UROBILINOGEN,URINE 0.2 (NORMAL) E.U./dL (NORMAL)
[2023-06-21 14:08] LABS: CLARITY,URINE CLEAR (CLEAR); HCG UR QUAL NEGATIVE
[2023-06-21 14:23] LABS: BACTERIA,URINE Few /HPF (None Seen); MUCUS,URINE Few Strands; RBC,URINE None Seen /HPF (0-5); SQUAMOUS EPITHELIAL CELL,UR FEW Squamous (<= Few); WBC,URINE 0-3 /HPF (0-5)
[2023-06-21] MEDS ORDERED: KETOROLAC 15 MG/ML VIAL IVP STA (14:42)
--- NOTE | 2023-06-21 15:29 | CT Report ---
PROCEDURE: ABDOMEN/PELVIS W INDICATIONS: SEVERE ABD PAIN, HX CHRONIC PANCREATITIS CONTRAST: 100ml omni 300 TECHNIQUE: After the administration of intravenous contrast, 5 mm thick sections acquired from the diaphragms to the symphysis. 5 mm thick coronal and sagittal reformats were acquired. For radiation dose reducti on, the following was used: automated exposure control, adjustment of mA and/or kV according to ascencion ent size. COMPARISON: 05/05/2023 FINDINGS: Image quality: Excellent. Lung bases and heart: Lung bases are clear. Heart size is normal. Liver: Hepatic steatosis. Gallbladder and biliary tree: Bladder is decompressed. Common bile duct stent is in place. Previously seen pneumobilia in the left hepatic lobe has mostly resolved. No evidence for intrahepatic biliary ductal dilatation. Spleen: No splenomegaly. Pancreas: Multiple coarse pancreatic calcifications as before and compatible with chronic pancreatiti s. Persistent pancreatic ductal dilatation. This is not significantly changed. Compared to the prior study, increased peripancreatic stranding and inflammatory changes. No organized fluid collection see n. Adrenals: No adrenal nodule. Kidneys and ureters: No hydronephrosis. No renal cystic lesion which requires follow up. No solid mas s. Bilateral ureters are normal in course and caliber. Bowel and peritoneum: No bowel distension. Mild circumferential wall thickening of the proximal trans verse colon and distal ascending colon possibly related to reactive changes of adjacent pancreas. Herbert endix is normal. Small amount of free fluid noted. No evidence for abscess formation. Lymph nodes: No central or retroperitoneal adenopathy. Multiple scattered retroperitoneal lymph nodes likely reactive in etiology. None meet size criteria for pathology. Vessels: No infrarenal aortic aneurysm. Atherosclerosis. PELVIS Reproductive organs: Unremarkable. Bladder: No abnormal wall thickening, accounting for underdistension. Pelvic lymph nodes: No pelvic adenopathy by size criteria. Bones: No aggressive osseous abnormality. Other: No significant ventral or inguinal hernia. IMPRESSION: 1. Interval increase in peripancreatic inflammatory changes near the head and uncinate process likely representing acute pancreatitis superimposed on changes of chronic pancreatitis. 2. Stable positioning of common bile duct stent. 3. Mild circumferential wall thickening of the proximal transverse colon and distal ascending colon l ikely inflammatory in etiology given adjacent findings of acute pancreatitis. 4. Normal appendix. 5. Interval resolution of previously seen hepatic pneumobilia. Other chronic findings as above. Reviewed by: Rodo Blancas MD on 06/21/2023 3:28 PM PDT Approved by: Rodo Blancas MD on 06/21/2023 3:28 PM PDT Station ID: [id number]
[2023-06-21] MEDS ORDERED: HYDROmorphone 1 MG/ML CARPUJECT IVP STA (15:32)
[2023-06-21] MEDS ORDERED: iohexoL-300 100 ML VIAL IVP ONE (15:44)
[2023-06-21 16:11] VITALS: BP 138/74; O2SAT 98
--- NOTE | 2023-06-23 22:09 | ED Physician Documentation ---
ED Addendum - Addendum Addendum: 06/23/23 22:08 urine culture grew e coli, but per Dr. Shields's documentation at time of sample collection, patient denies any urinary symptoms therefore this is asymptomatic bacteriuria and should not be treated with antibiotics. Culture report placed in file.
== END 2023-06-21 16:10 | disposition home or self-care (01) ==
LOC: ED 09:52
DX: K85.90 Acute pancreatitis without necrosis or infection, unspecified (principal); K86.0 Alcohol-induced chronic pancreatitis; K86.81 Exocrine pancreatic insufficiency; R82.71 Bacteriuria; F17.200 Nicotine dependence, unspecified, uncomplicated
CPT/HCPCS: 36415; 74177; 80053; 81001; 81025; 83690; 85025; 87086; 87181; 96374; 96375; 99284; J1170; Q9967; 81003

== ENCOUNTER 2023-08-07 14:44 | Outpatient (CLI) | payer MEDICAID | END 2023-08-07 14:45 | disposition critical access hospital (66) | LOC: EMS 14:44 | DX: R50.9 Fever, unspecified (principal); R10.812 Left upper quadrant abdominal tenderness; R10.811 Right upper quadrant abdominal tenderness | CPT/HCPCS: A0425; A0429; A0999 ==

== ENCOUNTER 2023-08-07 14:50 | Emergency (ER) | payer MEDICAID ==
[2023-08-07 15:04] VITALS: O2SAT 98
[2023-08-07 15:19] LABS: BASOPHILS % (AUTO) 0.6 %; EOSINOPHILS % (AUTO) 1.1 %; HCT - HEMATOCRIT 34.2 % (37.0-47.0); LYMPHOCYTES % (AUTO) 12.4 %; MEAN CORPUSCULAR HEMOGLOBIN 35.9 pg (27.0-31.0); MEAN CORPUSCULAR HGB CONC 32.2 g/dL (32.0-36.0); MEAN CORPUSCULAR VOLUME 111.8 fL (81.0-99.0); MEAN PLATELET VOLUME 8.7 fL (7.9-10.8); MONOCYTES % (AUTO) 0.4 %; NEUTROPHILS % (AUTO) 85.3 %; PLT - PLATELET COUNT 394 10^3/uL (130-450); RED BLOOD COUNT 3.06 10^6/uL (4.20-5.40); RED CELL DISTRIBUTION WIDTH 14.3 % (12.0-15.0); WHITE BLOOD COUNT 8.5 x10^3/uL (4.8-10.8)
[2023-08-07 15:21] LABS: SLIDE REVIEW? Indicated
[2023-08-07 15:22] VITALS: BP 121/81
[2023-08-07 15:22] LABS: ABNORMAL LYMPHS % (MANUAL) 0 %
[2023-08-07 15:37] LABS: ALBUMIN 3.2 g/dL (3.2-5.5); ALBUMIN/GLOBULIN RATIO 1.1 (1.0-2.2); BILIRUBIN,TOTAL 0.4 mg/dL (0.2-1.0); CALCIUM 8.7 mg/dL (8.5-10.3); CREATININE 0.5 mg/dL (0.6-1.3); POTASSIUM 3.5 mmol/L (3.5-4.5); TOTAL PROTEIN 6.1 g/dL (6.4-8.9)
[2023-08-07 15:48] LABS: BAND NEUTROPHILS % (MANUAL) 16 %; LYMPHOCYTES # (MANUAL) 0.6 10^3/uL (1.5-3.5); LYMPHOCYTES % (MANUAL) 7 %; METAMYELOCYTES % (MANUAL) 3 %; MONOCYTES # (MANUAL) 0.1 10^3/uL (0.0-1.0); NEUTROPHILS # (MANUAL) 7.6 10^3/uL (1.5-6.6)
[2023-08-07 15:50] LABS: DIFFERENTIAL COMMENT MANUAL DIFFERENTIAL; PLATELET ESTIMATE, MANUAL NORMAL (130-450,000) (NORMAL); PLATELET MORPHOLOGY NORMAL APPEARANCE (NORMAL); RBC MORPHOLOGY (MULTIPLE) 2+ MACROCYTOSIS (NORMAL); WBC MORPHOLOGY (MULTIPLE) NORMAL APPEARANCE (NORMAL)
[2023-08-07] MEDS ORDERED: HYDROmorphone 0.5 MG/0.5 ML SYRINGE IVP STA (16:02)
--- NOTE | 2023-08-07 16:36 | ED Physician Documentation ---
PD HPI ABD PAIN - Stated complaint Stated Complaint: ABD PX - Chief complaint Chief Complaint: Abd Pain - History obtained from History obtained from: Patient - Additional information Additional information: The pt comes to the ED for CC of upper abd pain. The pt is well-known to our ED for chronic abd pain and pancreatitis, and is followed by GI. She has had extensive recent work-up, including ERCP last month. She states the pain is consistent with her many previous episodes. She has had nausea/vomiting, as usual. No fevers. 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, 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) : None HEENT: Other Psych: Depression, Anxiety Musculoskeletal: Chronic back pain Derm: None - Past Surgical History Past Surgical History: Yes General: Other /TIRE DESIGN ENGINEER: Other - Present Medications Home Medications: Ambulatory Orders Medication Instructions Recorded Confirmed Albuterol Sulfate [Albuterol 2 puffs IH Q4H PRN 05/06/20 08/07/23 Sulfate Hfa] Pnv No.121/Iron/Folic Acid 1 each PO DAILY #30 tablet 12/01/21 08/07/23 [ Multivitamin Tablet] Thiamine [Vitamin B-1] 100 mg PO DAILY #30 tablet 12/01/21 08/07/23 Acetaminophen [Tylenol] 1,000 mg PO Q6H PRN 11/21/22 08/07/23 Lipase/Protease/Amylase [Zenpep Dr 1 cap PO TIDWM 11/21/22 08/07/23 20,000 Unit Capsule] Potassium Chloride [K-Dur] 10 meq PO DAILY 11/21/22 08/07/23 Mirtazapine 15 mg PO HS 06/21/23 08/07/23 Ondansetron Odt [Zofran] 4 mg TL Q6H PRN #10 tablet 06/21/23 08/07/23 Pantoprazole [Protonix] 40 mg PO DAILY 06/21/23 08/07/23 Furosemide [Lasix] 20 mg PO DAILY 08/07/23 08/07/23 Sucralfate [Carafate] 1 tablet PO ACHS 08/07/23 08/07/23 Venlafaxine ER [Effexor ER] 75 mg PO DAILY 08/07/23 08/07/23 oxyCODONE [Roxicodone] 2.5 mg PO Q8HR PRN 08/07/23 08/07/23 - Allergies Allergies/Adverse Reactions: Allergies Allergy/AdvReac Type Severity Reaction Status Date / Time No Known Drug Allergies Allergy Verified 08/07/23 14:59 - Social History Does the pt smoke?: Yes Smoking Status: Current every day smoker Does the pt drink ETOH?: Yes Does the pt have substance abuse?: No - Immunizations Immunizations are current?: Yes Immunizations: TDAP >10years/unknown - POLST Patient has POLST: No POLST Status: Full Code PD ED PE NORMAL - Vitals Vital signs reviewed: Yes - General General: Alert and oriented X 3, Other (Emaciated pt, looks much older than stated age. Appears uncomfortable, but otherwise in NAD.) - HEENT HEENT: Atraumatic, PERRL, EOMI, Moist mucous membranes - Neck Neck: Supple, no meningeal sign - Cardiac Cardiac: RRR, No murmur - Respiratory Respiratory: No respiratory distress, Clear bilaterally - Abdomen Abdomen: Soft, Non distended, Other (tenderness across upper abd, no rebound or guarding) - Back Back: No CVA TTP - Derm Derm: Warm and dry - Extremities Extremities: No deformity - Neuro Neuro: Other (Alert, grossly intact) - Psych Psych: Normal mood, Normal affect Results - Vitals Vitals: Oxygen O2 Source Room air - Labs Labs: Laboratory Tests 08/07/23 08/07/23 15:08 15:08 WBC 8.5 RBC 3.06 L Hgb 11.0 L Hct 34.2 L MCV 111.8 H MCH 35.9 H MCHC 32.2 RDW 14.3 Plt Count 394 MPV 8.7 Neut # (Auto) Not Reportable Lymph # (Auto) Not Reportable [place] # (Auto) Not Reportable Eos # (Auto) Not Reportable Baso # (Auto) Not Reportable Absolute Nucleated RBC Not Reportable Total Counted 100 Band Neuts % (Manual) 16 H Abnorm Lymph % (Manual) 0 Metamyelocytes % 3 H Nucleated RBC % Not Reportable Neutrophils # (Manual) 7.6 H Lymphocytes # (Manual) 0.6 L Monocytes # (Manual) 0.1 Eosinophils # (Manual) 0.0 Basophils # (Manual) 0.0 Differential Comment MANUAL DIFFERENTIAL Manual Slide Review Indicated WBC Morphology NORMAL APPEARANCE Platelet Estimate NORMAL (130-450,000) Platelet Morphology NORMAL APPEARANCE RBC Morph Micro Appear 2+ MACROCYTOSIS Sodium 137 Potassium 3.5 Chloride 103 Carbon Dioxide 27 Anion Gap 7.0 BUN 17 Creatinine 0.5 L Estimated GFR (MDRD) 133 Glucose 74 Calcium 8.7 Total Bilirubin 0.4 AST 28 ALT 13 Alkaline Phosphatase 144 H Total Protein 6.1 L Albumin 3.2 Globulin 2.9 Albumin/Globulin Ratio 1.1 Lipase 10 L PD Medical Decision Making - ED course Complexity details: reviewed old records, reviewed results, re-evaluated patient, considered differential, d/w patient ED course: The pt's vital signs were normal, and her sx were on par with many previous episodes. Her WBC count was normal and lipase was not remarkably elevated. Given the extensive work-up and imaging this pt has had, I did not feel that another CT was indicated at this time. The pt was feeling better after symptomatic treatment, and I felt she was stable for d/c home. We have discussed the usual indications for return and of course, the importance of continued close follow-up with GI. Departure - Departure Disposition: Home, Self Care Clinical Impression: Abdominal pain Qualifiers: Abdominal location: upper abdomen, unspecified Qualified Code(s): R10.10 - Upper abdominal pain, unspecified Condition: Stable Instructions: ED Abdominal Pain Female Non-Specific Abdominal Pain Comments: Your labs actually look pretty good today. There is no significant worsening from your most recent test here. At this point in time, given this and that your vital signs also look fairly good, there is no indication for repeat imaging. It is very important that you follow-up with your manager radiation to for further evaluation and repeat ERCP as you have planned. If you develop high fevers or become jaundiced, please return to the emergency department. Forms: PCP List Discharge Date/Time: 08/07/23 17:15
== END 2023-08-07 17:15 | disposition home or self-care (01) ==
LOC: EDUNIT# → ED 14:50
DX: R10.10 Upper abdominal pain, unspecified (principal); G89.29 Other chronic pain; F17.200 Nicotine dependence, unspecified, uncomplicated; Z87.19 Personal history of other diseases of the digestive system
CPT/HCPCS: 36415; 80053; 83690; 85025; 96374; 99283; 99284; J1170

== ENCOUNTER 2023-09-07 10:31 | Outpatient (CLI) | payer MEDICAID | END 2023-09-07 10:32 | disposition home or self-care (01) | LOC: NS 10:31 | PROVIDERS: ATTEND Nurse Practitioner | DX: E46 Unspecified protein-calorie malnutrition (principal); Z71.3 Dietary counseling and surveillance; Z71.89 Other specified counseling | CPT/HCPCS: 97803 ==

== ENCOUNTER 2023-11-28 17:38 | Emergency (ER) | payer MEDICAID ==
[2023-11-28 18:08] LABS: BASOPHILS % (AUTO) 0.6 %; EOSINOPHILS % (AUTO) 2.2 %; HCT - HEMATOCRIT 35.4 % (37.0-47.0); HGB - HEMOGLOBIN 11.8 g/dL (12.0-16.0); LYMPHOCYTES % (AUTO) 36.5 %; MEAN CORPUSCULAR HEMOGLOBIN 29.1 pg (27.0-31.0); MEAN CORPUSCULAR HGB CONC 33.3 g/dL (32.0-36.0); MEAN CORPUSCULAR VOLUME 87.2 fL (81.0-99.0); MEAN PLATELET VOLUME 9.2 fL (7.9-10.8); MONOCYTES % (AUTO) 4.5 %; NEUTROPHILS % (AUTO) 55.8 %; PLT - PLATELET COUNT 555 10^3/uL (130-450); RED BLOOD COUNT 4.06 10^6/uL (4.20-5.40); RED CELL DISTRIBUTION WIDTH 17.8 % (12.0-15.0)
[2023-11-28 18:16] LABS: SLIDE REVIEW? Indicated
[2023-11-28 18:17] LABS: ABNORMAL LYMPHS % (MANUAL) 0 %
[2023-11-28 18:21] LABS: ALBUMIN 3.7 g/dL (3.2-5.5); ALBUMIN/GLOBULIN RATIO 1.2 (1.0-2.2); ALKALINE PHOSPHATASE 333 IU/L (42-121); ALT ALANINE AMINOTRANSFERASE 17 IU/L (10-60); AST ASPARTATE AMINOTRANSFERASE 30 IU/L (10-42); BILIRUBIN,TOTAL 0.8 mg/dL (0.2-1.0); BUN - BLOOD UREA NITROGEN 8 mg/dL (6-20); CALCIUM 9.5 mg/dL (8.5-10.3); CARBON DIOXIDE - CO2 23 mmol/L (21-32); CHLORIDE 102 mmol/L (101-111); CREATININE 0.6 mg/dL (0.6-1.3); GFR - MDRD 108 (>89); GLUCOSE 320 mg/dL (74-104); POTASSIUM 3.9 mmol/L (3.5-4.5); SODIUM 133 mmol/L (135-145); TOTAL PROTEIN 6.7 g/dL (6.4-8.9)
[2023-11-28 18:41] LABS: LIPASE < 10 U/L (11-82)
[2023-11-28 19:02] LABS: BAND NEUTROPHILS % (MANUAL) 1 %; BASOPHILS # (MANUAL) 0.3 10^3/uL (0-0.1); BASOPHILS % (MANUAL) 2 %; EOSINOPHILS # (MANUAL) 0.5 10^3/uL (0-0.7); LYMPHOCYTES # (MANUAL) 4.2 10^3/uL (1.5-3.5); LYMPHOCYTES % (MANUAL) 22 %; NEUTROPHILS # (MANUAL) 8.1 10^3/uL (1.5-6.6); REACTIVE LYMPHS % (MANUAL) 10 %
[2023-11-28 19:13] LABS: DIFFERENTIAL COMMENT MANUAL DIFFERENTIAL; PLATELET ESTIMATE, MANUAL INCREASED (>450,000) (NORMAL); PLATELET MORPHOLOGY NORMAL APPEARANCE (NORMAL); RBC MORPHOLOGY (MULTIPLE) NORMAL APPEARANCE (NORMAL); WBC MORPHOLOGY (MULTIPLE) 1+ HYPERSEG NEUT (NORMAL)
[2023-11-28] MEDS: ONDANSETRON 4 MG/2 ML VIAL IVP STA (21:06)
[2023-11-28] MEDS: KETOROLAC 15 MG/ML VIAL IVP STA (21:06)
[2023-11-28] MEDS: HYDROmorphone 0.5 MG/0.5 ML SYRINGE IVP STA ×2 (21:07→21:30)
[2023-11-28] MEDS: SODIUM CHLORIDE 0.9% 1,000 ML IV STA (21:07)
--- NOTE | 2023-11-28 21:28 | ED Physician Documentation ---
PD HPI ABD PAIN - Stated complaint Stated Complaint: ABD PX - Chief complaint Chief Complaint: Abd Pain - History obtained from History obtained from: Patient - Additional information Additional information: Patient is a 48-year-old male with a history of chronic pancreatitis presenting for evaluation of right upper quadrant and epigastric tenderness for the past 3 days. It is sharp with associated nausea and vomiting. She is out of her usual pain medication and has been taking Tylenol without any relief. Denies fever. She follows with GI at Dr. Ceci Powell. She had an ERCP on November 20. On review of the op note the previously placed stent was removed. There is a large amount of sludge and debris in both the common bile duct and pancreatic duct. There is a large stone within the pancreatic duct that was crushed and there was a new pancreatic duct stent that was placed. Review of Systems Constitutional: denies: Fever Cardiac: denies: Chest pain / pressure Respiratory: denies: Dyspnea GI: reports: Abdominal Pain, Nausea, Vomiting. 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, 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) : None HEENT: Other Psych: Depression, Anxiety Musculoskeletal: Chronic back pain Derm: None - Past Surgical History Past Surgical History: Yes General: Other /SCHOOL ATTENDANCE SECRETARY: Other - Present Medications Home Medications: Ambulatory Orders Medication Instructions Recorded Confirmed Albuterol Sulfate [Albuterol 2 puffs IH Q4H PRN 05/06/20 08/07/23 Sulfate Hfa] Pnv No.121/Iron/Folic Acid 1 each PO DAILY #30 tablet 12/01/21 08/07/23 [ Multivitamin Tablet] Thiamine [Vitamin B-1] 100 mg PO DAILY #30 tablet 12/01/21 08/07/23 Acetaminophen [Tylenol] 1,000 mg PO Q6H PRN 11/21/22 08/07/23 Lipase/Protease/Amylase [Zenpep Dr 1 cap PO TIDWM 11/21/22 08/07/23 20,000 Unit Capsule] Potassium Chloride [K-Dur] 10 meq PO DAILY 11/21/22 08/07/23 Mirtazapine 15 mg PO HS 06/21/23 08/07/23 Ondansetron Odt [Zofran] 4 mg TL Q6H PRN #10 tablet 06/21/23 08/07/23 Pantoprazole [Protonix] 40 mg PO DAILY 06/21/23 08/07/23 Furosemide [Lasix] 20 mg PO DAILY 08/07/23 08/07/23 Sucralfate [Carafate] 1 tablet PO ACHS 08/07/23 08/07/23 Venlafaxine ER [Effexor ER] 75 mg PO DAILY 08/07/23 08/07/23 oxyCODONE [Roxicodone] 2.5 mg PO Q8HR PRN 08/07/23 08/07/23 Ondansetron Odt [Zofran] 4 mg TL Q6H PRN #10 tablet 11/29/23 cephALEXin [Keflex] 500 mg PO Q6H #28 cap 11/29/23 oxyCODONE [Roxicodone] 5 mg PO Q8HR PRN #12 tablet 11/29/23 - Allergies Allergies/Adverse Reactions: Allergies Allergy/AdvReac Type Severity Reaction Status Date / Time No Known Drug Allergies Allergy Verified 11/28/23 17:42 - Social History Does the pt smoke?: Yes Smoking Status: Current every day smoker Does the pt drink ETOH?: Yes Does the pt have substance abuse?: No - Immunizations Immunizations are current?: Yes Immunizations: TDAP >10years/unknown - POLST Patient has POLST: No POLST Status: Full Code PD ED PE NORMAL - General General: Alert and oriented X 3, No acute distress, Other (Thin, frail- appearing, appears older than stated age) - HEENT HEENT: Atraumatic, Moist mucous membranes, Pharynx benign - Neck Neck: Supple, no meningeal sign - Cardiac Cardiac: RRR, Strong equal pulses - Respiratory Respiratory: No respiratory distress, Clear bilaterally - Abdomen Abdomen: Normal bowel sounds, Soft, Non distended, Other (Right upper quadrant and epigastric tenderness) - Derm Derm: Warm and dry - Neuro Neuro: Normal speech Results - Vitals Vitals: Vital Signs - 24 hr 11/28/23 11/28/23 11/28/23 17:42 17:45 21:55 Temperature 36.8 C Heart Rate 88 70 80 Respiratory 20 16 15 Rate Blood Pressure 130/90 H 128/74 106/71 O2 Saturation 100 100 99 11/28/23 23:51 Temperature Heart Rate 84 Respiratory 20 Rate Blood Pressure 111/83 H O2 Saturation 100 Oxygen O2 Source Room air - Labs Labs: Laboratory Tests 11/28/23 11/28/23 11/28/23 17:54 17:54 22:02 WBC 13.0 H RBC 4.06 L Hgb 11.8 L Hct 35.4 L MCV 87.2 MCH 29.1 MCHC 33.3 RDW 17.8 H Plt Count 555 H MPV 9.2 Neut # (Auto) Not Reportable Lymph # (Auto) Not Reportable [place] # (Auto) Not Reportable Eos # (Auto) Not Reportable Baso # (Auto) Not Reportable Absolute Nucleated RBC Not Reportable Total Counted 100 Band Neuts % (Manual) 1 Reactive Lymphs % (Man) 10 Abnorm Lymph % (Manual) 0 Nucleated RBC % Not Reportable Neutrophils # (Manual) 8.1 H Lymphocytes # (Manual) 4.2 H Monocytes # (Manual) 0.0 Eosinophils # (Manual) 0.5 Basophils # (Manual) 0.3 H Differential Comment MANUAL DIFFERENTIAL Manual Slide Review Indicated WBC Morphology 1+ HYPERSEG NEUT Platelet Estimate INCREASED (>450,000) Platelet Morphology NORMAL APPEARANCE RBC Morph Micro Appear NORMAL APPEARANCE VBG pH VBG pCO2 VBG pO2 VBG HCO3 VBG Total CO2 VBG O2 Saturation VBG Base Excess Sodium 133 L Potassium 3.9 Chloride 102 Carbon Dioxide 23 Anion Gap 8.0 BUN 8 Creatinine 0.6 Estimated GFR (MDRD) 108 Glucose 320 H Calcium 9.5 Total Bilirubin 0.8 AST 30 ALT 17 Alkaline Phosphatase 333 H Total Protein 6.7 Albumin 3.7 Globulin 3.0 Albumin/Globulin Ratio 1.2 Lipase < 10 L Urine Color Urine Clarity Urine pH Ur Specific Reading Urine Protein Urine Glucose (UA) Urine Ketones Urine Occult Blood Urine Nitrite Urine Bilirubin Urine Urobilinogen Ur Leukocyte Esterase Urine RBC Urine WBC Ur Squamous Epith Cells Urine Bacteria Ur Microscopic Review Urine Culture Comments Urine HCG, Qual Serum Ketones NEGATIVE 11/28/23 11/28/23 11/28/23 22:02 22:53 23:52 WBC RBC Hgb Hct MCV MCH MCHC RDW Plt Count MPV Neut # (Auto) Lymph # (Auto) [place] # (Auto) Eos # (Auto) Baso # (Auto) Absolute Nucleated RBC Total Counted Band Neuts % (Manual) Reactive Lymphs % (Man) Abnorm Lymph % (Manual) Nucleated RBC % Neutrophils # (Manual) Lymphocytes # (Manual) Monocytes # (Manual) Eosinophils # (Manual) Basophils # (Manual) Differential Comment Manual Slide Review WBC Morphology Platelet Estimate Platelet Morphology RBC Morph Micro Appear VBG pH 7.312 VBG pCO2 36.2 L VBG pO2 53.2 H VBG HCO3 17.9 L VBG Total CO2 19.0 L VBG O2 Saturation 85.2 H VBG Base Excess -7.6 L Sodium Potassium Chloride Carbon Dioxide Anion Gap BUN Creatinine Estimated GFR (MDRD) Glucose Calcium Total Bilirubin AST ALT Alkaline Phosphatase Total Protein Albumin Globulin Albumin/Globulin Ratio Lipase Urine Color YELLOW Urine Clarity HAZY Urine pH 5.5 Ur Specific Reading 1.015 Urine Protein NEGATIVE Urine Glucose (UA) >=1000 H Urine Ketones NEGATIVE Urine Occult Blood NEGATIVE Urine Nitrite POSITIVE H Urine Bilirubin NEGATIVE Urine Urobilinogen 0.2 (NORMAL) Ur Leukocyte Esterase NEGATIVE Urine RBC None Seen Urine WBC 4-5 Ur Squamous Epith Cells RARE Squamous Urine Bacteria Many H Ur Microscopic Review INDICATED Urine Culture Comments INDICATED Urine HCG, Qual NEGATIVE Serum Ketones PD Medical Decision Making - ED course Complexity details: reviewed results, re-evaluated patient, d/w patient ED course: Is a 48-year-old female with a history of chronic pancreatitis and recent ERCP for exchange of her pancreatic duct stent Presenting with epigastric and right upper quadrant pain for the last 3 days. Labs including CBC, chemistries, urinalysis were reviewed. Leukocytosis of 13. Alk phos of 333 With normal T. bili and AST and ALT, glucose of 320. UA concerning for infection and patient does report having some dysuria. Patient was given IV fluids, IV Dilaudid and Zofran with improvement in pain. Ultrasound was obtained. There is increase in size of the common bile duct and common hepatic duct from prior ultrasound Which was in July at [facility].Hydrops gallbladder seen on prior ultrasounds. Discussed with GI at [facility], Dr. Cornell - Recommends that patient follow-up with Dr. Ornelas for an outpatient MRCP. Does not feel that she needs this emergently as her bili and AST and ALT are normal. Patient does appear to be doing better here and is ambulatory without any difficulty. Feels comfortable with plan for close follow-up. Glucose is elevated but she does not have a history of diabetes. Does not appear to be in DKA. Has had elevated blood sugars in the past although with only one that I can find in the 300 range which was several years ago. Encouraged close follow-up with PCP for evaluation for diabetes. Patient understands also need for follow-up with her GI doctor and is advised on strict return precautions for any worsening symptoms. Departure - Departure Disposition: 01 Home, Self Care Clinical Impression: Chronic pancreatitis, Common bile duct dilation, Hyperglycemia, UTI (urinary tract infection) Condition: Stable Instructions: ED UTI Cystitis Female, ED Hyperglycemia New Susp Diabetes Follow-Up: RUCHI MONROY DO [Physician No Access] - Within 3 Days SHERRY ORNELAS MD [Physician No Access] - Within 3 Days Prescriptions: oxyCODONE [Roxicodone] 5 mg PO Q8HR PRN #12 tablet PRN Reason: Pain 5-7 cephALEXin [Keflex] 500 mg PO Q6H #28 cap Ondansetron Odt [Zofran] 4 mg TL Q6H PRN #10 tablet PRN Reason: Nausea / Vomiting Comments: Your testing today shows that your blood sugar is quite elevated and you have a urine infection. You do need close follow-up with your primary care doctor to discuss the possibility of diabetes. Your ultrasound also shows some increase in the size of some of your bile ducts. However your bilirubin level and your AST and ALT which are liver markers are normal which is a good sign. I did speak with the on-call GI doctor at [facility] who recommends you have close follow- up with Dr. Ornelas and you may need an MRCP. I have sent prescriptions to [facility] in [place] including a small amount of narcotic pain medications. I would start with a liquid diet and advance as she can. I am prescribing a short course of narcotic pain medication for you. These are potentially dangerous and addictive medications that should be used carefully. These medications may constipate you. Take an [id number] stool softener (docusate) twice daily with plenty of water while taking these medications. If you go 24 hours without a bowel movement, take [id number] miralax, per package instructions. Do not drink or drive while taking these medications. If you received narcotic or sedating medications while in the emergency department, do not drive for 24 hours. Store this medication in a safe, secure place and out of reach of children. It is a violation of federal law to give or sell this medication to another person or to use in a manner other than prescribed. The ED will not refill narcotic prescriptions, including prescriptions lost or stolen. To dispose of unwanted medications: 1. [facility] at [address] in [place] has a medication drop box. They accept prescription medications (in pill form) Tuesday through Tuesday 9:00 a.m. to 5:00 p.m. 2. [facility] [employer] accepts prescription medications (in pill form only) for disposal year round. Call for more information. 3. Contact the [facility] for the next [facility] sponsored prescription drug collection event. , [phone], or [phone]; Note that many narcotic pain relievers also contain Tylenol/acetaminophen. Please ensure that your total dose of acetaminophen from all sources does not exceed 3 g (3000 mg) per day. Forms: PCP List Discharge Date/Time: 11/29/23 00:40
[2023-11-28 22:12] LABS: VBG PCO2 36.2 mmHg (41-51); VBG PH 7.312 (7.31-7.41)
[2023-11-28 22:13] LABS: VBG BASE EXCESS -7.6 mmol/L (-2 - +2); VBG HCO3 17.9 mmol/L (23-28); VBG OXYGEN SATURATION 85.2 % (60-80); VBG PO2 53.2 mmHg (25-47)
--- NOTE | 2023-11-28 22:43 | Ultrasound Report ---
PROCEDURE: Abdomen Limited INDICATIONS: RUQ pain TECHNIQUE: Real-time focused scanning was performed of the abdomen, with image documentation. COMPARISONS: Abdominal CT 06/21/2023. FINDINGS: Liver: Increased liver echogenicity, commonly mild hepatic steatosis. Gallbladder: Gallbladder sludge. No wall thickening. Gallbladder is distended. Biliary ducts: Intrahepatic bile ducts are dilated. Extrahepatic bile duct caliber measures 15 mm. Normal is 6-7 mm or less in diameter, or 10 mm or less post-cholecystectomy. Pancreas: Dilated pancreatic duct, measuring 9 mm. Right kidney: Normal in size and echotexture. Right kidney measures 10.4 cm long. No hydronephrosis or nephrolithiasis. No solid masses. No complex renal cystic lesions which require follow-up. Miscellaneous: No free abdominal fluid. IMPRESSION: Intrahepatic and extrahepatic biliary dilation, with gallbladder hydrops. Findings suggest an obstruc tive etiology in the common bile duct. Correlate with bilirubin and consider MRCP with contrast (panc reatic mass protocol). Dilated pancreatic duct, measuring 9 mm. Known intrapancreatic ductal stones are the probable etiolog y, but mass is not excluded. Reviewed by: Caesar Angela MD on 11/28/2023 10:41 PM PDT Approved by: Caesar Angela MD on 11/28/2023 10:41 PM PDT Station ID: [id number]
[2023-11-28 23:05] LABS: BILIRUBIN,URINE NEGATIVE (NEGATIVE); GLUCOSE, URINE (UA) >=1000 mg/dL (NEGATIVE); KETONES,URINE (UA) NEGATIVE (NEGATIVE); LEUKOCYTE ESTERASE, URINE NEGATIVE (NEGATIVE); NITRITE,URINE POSITIVE (NEGATIVE); OCCULT BLOOD,URINE NEGATIVE (NEGATIVE); PH,URINE 5.5 PH (5.0-7.5); PROTEIN,URINE NEGATIVE (NEGATIVE); UROBILINOGEN,URINE 0.2 (NORMAL) E.U./dL (NORMAL)
[2023-11-28 23:19] LABS: CLARITY,URINE HAZY (CLEAR)
[2023-11-28 23:20] LABS: BACTERIA,URINE Many /HPF (None Seen); RBC,URINE None Seen /HPF (0-5); SQUAMOUS EPITHELIAL CELL,UR RARE Squamous (<= Few)
[2023-11-28] MEDS: ONDANSETRON ODT 4 MG Prepack 2 TL PRN (23:57)
[2023-11-28] MEDS: oxyCODONE/ACET 5/325 Prepack 4 PO STA (23:57)
[2023-11-28] MEDS: cephALEXin 250 MG CAPSULE PO STA (23:57)
[2023-11-28 23:58] VITALS: BP 111/83; O2SAT 100
[2023-11-29 00:14] LABS: HCG UR QUAL NEGATIVE
--- NOTE | 2023-11-30 13:35 | ED Physician Documentation ---
ED Addendum - Addendum Addendum: 11/30/23 13:35 Called patient's with results of urine culture. Specifically Citrobacter that was resistant to cefazolin so reasonable to expect that Keflex may not work. I called her and she is having controlled pain, just feels very drained and her nausea is uncontrolled. I told her to stop the Keflex and we will sob cefdinir and add Reglan. Did not want to use a floroquinolone as she takes a lot of Zofran and so that would be worrisome for her QT. Other than that there were limited oral options.
== END 2023-11-29 00:40 | disposition home or self-care (01) ==
LOC: ED 17:38
DX: K83.8 Other specified diseases of biliary tract (principal); K86.1 Other chronic pancreatitis; N39.0 Urinary tract infection, site not specified; R73.9 Hyperglycemia, unspecified; I10 Essential (primary) hypertension; F17.200 Nicotine dependence, unspecified, uncomplicated
CPT/HCPCS: 36415; 76705; 80053; 81001; 81025; 82009; 82803; 83690; 85025; 87086; 96374; 96375; 99284; 99285; A9270; J1170; 81003; 87077; 87181

== ENCOUNTER 2023-12-12 21:40 | Outpatient (CLI) | payer MEDICAID ==
[2023-12-12 22:24] LABS: ESTIMATED AVERAGE GLUCOSE 280 mg/dL (70-100); HEMOGLOBIN A1c% 11.4 % (4.27-6.07)
== END 2023-12-12 21:41 ==
LOC: LAB 21:40
PROVIDERS: ATTEND Physician Assistant
DX: R73.09 Other abnormal glucose (principal)
CPT/HCPCS: 36415; 83036

== ENCOUNTER 2023-12-16 23:19 | Emergency (ER) | payer MEDICAID ==
--- NOTE | 2023-12-16 23:46 | ED Physician Documentation ---
History of Present Illness - Stated complaint Stated Complaint: FEVER/BLURRY VISION - Chief complaint Chief Complaint: Fever - History obtained from History obtained from: Patient - Additonal information Additional information: 48yF with pmh pancreatitis, newly developing hyperglycemia over the past couple months, p/w high blood sugar reading at home. patient has also been in treatment for uti and has been on 3 different antibiotics, most recently augmentin. she denies dysuria, hematuria but does still have increased frequency. endorsing nausea and subjective fevers at home. denies vomiting or new abdominal pain though she has chronic pain related to her pancreatitis. also with vision changes worsening over the past two weeks that she has been working up with her doctor. 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: Ovarian cysts, 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) : None HEENT: Other Psych: Depression, Anxiety Musculoskeletal: Chronic back pain Derm: None - Past Surgical History Past Surgical History: Yes General: Other /DIE MAINTENANCE: Other - Present Medications Home Medications: Ambulatory Orders Medication Instructions Recorded Confirmed Albuterol Sulfate [Albuterol 2 puffs IH Q4H PRN 05/06/20 08/07/23 Sulfate Hfa] Pnv No.121/Iron/Folic Acid 1 each PO DAILY #30 tablet 12/01/21 08/07/23 [ Multivitamin Tablet] Thiamine [Vitamin B-1] 100 mg PO DAILY #30 tablet 12/01/21 08/07/23 Acetaminophen [Tylenol] 1,000 mg PO Q6H PRN 11/21/22 08/07/23 Lipase/Protease/Amylase [Zenpep Dr 1 cap PO TIDWM 11/21/22 08/07/23 20,000 Unit Capsule] Potassium Chloride [K-Dur] 10 meq PO DAILY 11/21/22 08/07/23 Mirtazapine 15 mg PO HS 06/21/23 08/07/23 Ondansetron Odt [Zofran] 4 mg TL Q6H PRN #10 tablet 06/21/23 08/07/23 Pantoprazole [Protonix] 40 mg PO DAILY 06/21/23 08/07/23 Furosemide [Lasix] 20 mg PO DAILY 08/07/23 08/07/23 Sucralfate [Carafate] 1 tablet PO ACHS 08/07/23 08/07/23 Venlafaxine ER [Effexor ER] 75 mg PO DAILY 08/07/23 08/07/23 oxyCODONE [Roxicodone] 2.5 mg PO Q8HR PRN 08/07/23 08/07/23 Ondansetron Odt [Zofran] 4 mg TL Q6H PRN #10 tablet 11/29/23 cephALEXin [Keflex] 500 mg PO Q6H #28 cap 11/29/23 oxyCODONE [Roxicodone] 5 mg PO Q8HR PRN #12 tablet 11/29/23 Cefdinir 300 mg PO BID #20 cap 11/30/23 Metoclopramide [Reglan] 10 mg PO Q6H PRN #20 tablet 11/30/23 - Allergies Allergies/Adverse Reactions: Allergies Allergy/AdvReac Type Severity Reaction Status Date / Time No Known Drug Allergies Allergy Verified 12/16/23 23:33 - Social History Does the pt smoke?: Yes Smoking Status: Current every day smoker Does the pt drink ETOH?: Yes Does the pt have substance abuse?: No - Immunizations Immunizations are current?: Yes Immunizations: TDAP >10years/unknown - POLST Patient has POLST: No POLST Status: Full Code PD ED PE NORMAL - Vitals Vital signs reviewed: Yes - General General: Alert and oriented X 3, No acute distress, Other (thin appearing) - HEENT HEENT: Atraumatic, PERRL, EOMI, Moist mucous membranes - Neck Neck: Supple, no meningeal sign - Cardiac Cardiac: RRR - Respiratory Respiratory: No respiratory distress, Clear bilaterally - Abdomen Abdomen: Non tender, Non distended - Derm Derm: Normal color, Warm and dry - 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, No motor deficit, No sensory deficit Results - Vitals Vitals: Vital Signs - 24 hr 12/16/23 12/16/23 23:28 23:33 Temperature 36.3 C L Heart Rate 90 88 Respiratory 16 Rate Blood Pressure 155/101 H O2 Saturation 99 Oxygen O2 Source Room air - Labs Labs: Laboratory Tests 12/16/23 12/16/23 12/16/23 23:42 23:47 23:47 WBC 10.0 RBC 4.06 L Hgb 11.6 L Hct 35.4 L MCV 87.2 MCH 28.6 MCHC 32.8 RDW 15.3 H Plt Count 262 MPV 10.4 Neut # (Auto) 4.9 Lymph # (Auto) 4.1 H [place] # (Auto) 0.7 Eos # (Auto) 0.2 Baso # (Auto) 0.1 Absolute Nucleated RBC 0.00 Nucleated RBC % 0.0 VBG pH VBG pCO2 VBG pO2 VBG HCO3 VBG Total CO2 VBG O2 Saturation VBG Base Excess Sodium 128 L Potassium 4.3 Chloride 95 L Carbon Dioxide 27 Anion Gap 6.0 BUN 6 Creatinine 0.7 Estimated GFR (MDRD) 90 Glucose 678 H* Calcium 9.6 Urine Color YELLOW Urine Clarity CLEAR Urine pH 6.0 Ur Specific [place] <=1.005 Urine Protein NEGATIVE Urine Glucose (UA) >=1000 H Urine Ketones NEGATIVE Urine Occult Blood TRACE-INTA Urine Nitrite NEGATIVE Urine Bilirubin NEGATIVE Urine Acetest Cancelled Urine Urobilinogen 0.2 (NORMAL) Ur Leukocyte Esterase NEGATIVE Ur Microscopic Review NOT INDICATED Urine Culture Comments NOT INDICATED Serum Ketones NEGATIVE 12/16/23 23:47 WBC RBC Hgb Hct MCV MCH MCHC RDW Plt Count MPV Neut # (Auto) Lymph # (Auto) [place] # (Auto) Eos # (Auto) Baso # (Auto) Absolute Nucleated RBC Nucleated RBC % VBG pH 7.344 VBG pCO2 44.3 VBG pO2 45.1 VBG HCO3 23.6 VBG Total CO2 24.9 VBG O2 Saturation 79.9 VBG Base Excess -2.2 L Sodium Potassium Chloride Carbon Dioxide Anion Gap BUN Creatinine Estimated GFR (MDRD) Glucose Calcium Urine Color Urine Clarity Urine pH Ur Specific [place] Urine Protein Urine Glucose (UA) Urine Ketones Urine Occult Blood Urine Nitrite Urine Bilirubin Urine Acetest Urine Urobilinogen Ur Leukocyte Esterase Ur Microscopic Review Urine Culture Comments Serum Ketones PD Medical Decision Making - ED course ED course: 48yF p/w hyperglycemia at home, nausea, subjective fever. she is afebrile here with normal vital signs and exam aside from mild hypertension. Abdomen is soft and nontender. Will obtain labs including vbg, cbc, bmp, ketones, u/a to evaluate for early dka. Her vision changes may be related to diabetic retinopathy vs cataracts associated with diabetes and she will likely most benefit from home insulin regimen. Plan for now to administer 10 u regular IV insulin and reevaluate blood sugar. navyafran provided with improvement in nausea in conjunction with IVF. because [facility] is a sendout lab we will be unable to review results here in the ED. Patient was provided with additional 20u insulin after chemistry came back showing significant elevated glucose. Departure - Departure Clinical Impression: Diabetes Condition: Stable Instructions: Diabetes Resources Comments: You were seen in the emergency department for high blood sugar and other symptoms related to diabetes. You received insulin in the ED with good effects. Please follow-up with your primary care provider and return to the emergency department if you have any new or worsening symptoms or other concerns. Forms: PCP List
[2023-12-16] MEDS: SODIUM CHLORIDE 0.9% 1,000 ML IV STA (23:50)
[2023-12-16] MEDS: ONDANSETRON 4 MG/2 ML VIAL IVP STA (23:50)
[2023-12-16 23:55] LABS: BASOPHILS # (AUTO) 0.1 10^3/uL (0.0-0.1); BASOPHILS % (AUTO) 0.8 %; EOSINOPHILS # (AUTO) 0.2 10^3/uL (0.0-0.7); EOSINOPHILS % (AUTO) 2.2 %; HCT - HEMATOCRIT 35.4 % (37.0-47.0); HGB - HEMOGLOBIN 11.6 g/dL (12.0-16.0); LYMPHOCYTES # (AUTO) 4.1 10^3/uL (1.5-3.5); LYMPHOCYTES % (AUTO) 41.1 %; MEAN CORPUSCULAR HEMOGLOBIN 28.6 pg (27.0-31.0); MEAN CORPUSCULAR HGB CONC 32.8 g/dL (32.0-36.0); MEAN CORPUSCULAR VOLUME 87.2 fL (81.0-99.0); MEAN PLATELET VOLUME 10.4 fL (7.9-10.8); MONOCYTES # (AUTO) 0.7 10^3/uL (0.0-1.0); NEUTROPHILS # (AUTO) 4.9 10^3/uL (1.5-6.6); NEUTROPHILS % (AUTO) 48.7 %; PLT - PLATELET COUNT 262 10^3/uL (130-450); RED BLOOD COUNT 4.06 10^6/uL (4.20-5.40); RED CELL DISTRIBUTION WIDTH 15.3 % (12.0-15.0)
[2023-12-16 23:57] LABS: BILIRUBIN,URINE NEGATIVE (NEGATIVE); GLUCOSE, URINE (UA) >=1000 mg/dL (NEGATIVE); KETONES,URINE (UA) NEGATIVE (NEGATIVE); LEUKOCYTE ESTERASE, URINE NEGATIVE (NEGATIVE); NITRITE,URINE NEGATIVE (NEGATIVE); OCCULT BLOOD,URINE TRACE-INTA (NEGATIVE); PROTEIN,URINE NEGATIVE (NEGATIVE); UROBILINOGEN,URINE 0.2 (NORMAL) E.U./dL (NORMAL)
[2023-12-16 23:59] LABS: CLARITY,URINE CLEAR (CLEAR)
[2023-12-17] MEDS: INSULIN REGULAR HUMAN 300 UNIT/3 ML VIAL IVP STA ×2 (00:01→00:24)
[2023-12-17 00:06] LABS: KETONES, SERUM (ACETEST) NEGATIVE (NEGATIVE); VBG PCO2 44.3 mmHg (41-51); VBG PH 7.344 (7.31-7.41); VBG PO2 45.1 mmHg (25-47)
[2023-12-17 00:07] LABS: VBG BASE EXCESS -2.2 mmol/L (-2 - +2); VBG HCO3 23.6 mmol/L (23-28); VBG OXYGEN SATURATION 79.9 % (60-80); VBG TOTAL CO2 24.9 mmol/L (24-29)
[2023-12-17 00:15] LABS: BUN - BLOOD UREA NITROGEN 6 mg/dL (6-20); CALCIUM 9.6 mg/dL (8.5-10.3); CARBON DIOXIDE - CO2 27 mmol/L (21-32); CHLORIDE 95 mmol/L (101-111); CREATININE 0.7 mg/dL (0.6-1.3); GFR - MDRD 90 (>89); GLUCOSE 678 mg/dL (74-104); POTASSIUM 4.3 mmol/L (3.5-4.5); SODIUM 128 mmol/L (135-145)
[2023-12-17] MEDS: POTASSIUM CHLORIDE 20 MEQ/15 ML UDC PO STA (00:25)
[2023-12-17] MEDS: SODIUM CHLORIDE 0.9% 1,000 ML IV STA (00:31)
[2023-12-17 01:10] VITALS: BP 129/89; O2SAT 98
== END 2023-12-17 01:09 | disposition home or self-care (01) ==
LOC: ED 23:19
DX: E11.9 Type 2 diabetes mellitus without complications (principal); Z79.84 Long term (current) use of oral hypoglycemic drugs; I10 Essential (primary) hypertension; F17.200 Nicotine dependence, unspecified, uncomplicated
CPT/HCPCS: 36415; 80048; 81003; 82009; 82803; 83930; 85025; 96374; 99283; 99284; A9270; J1815; 81001; 81002; 87086

== ENCOUNTER 2023-12-27 12:01 | Outpatient (CLI) | payer MEDICAID | END 2023-12-27 23:59 | disposition critical access hospital (66) | LOC: EMS 12:01 | DX: R10.11 Right upper quadrant pain (principal); R11.0 Nausea; R73.9 Hyperglycemia, unspecified | CPT/HCPCS: A0425; A0427; A0999 ==

== ENCOUNTER 2023-12-27 12:06 | Emergency (ER) | payer MEDICAID ==
--- NOTE | 2023-12-27 12:26 | ED Physician Documentation ---
PD HPI ABD PAIN - Stated complaint Stated Complaint: ABD PX - Chief complaint Chief Complaint: Abd Pain - History obtained from History obtained from: Patient, EMS - History of Present Illness Timing - onset: How many days ago (she has had elevated blood sugars for weeks at least and was noted on an ER visit. started on Metformin and had f/u with PMD yesterday, who Rx Lantus, Lispro, and Jiardiance. Pt has not gotten them from pharmacy as yet (appt was yest afternoon). She did get the glucose sensor yesterday.) Timing - duration: Days Timing - details: Gradual onset, Waxing and waning Quality: Cramping, Aching, Pain Location: RUQ, Epigastric Radiation: Lower back Improved by: Laying still Worsened by: Eating, Moving Associated symptoms: Nausea, Vomiting. No: Fever, Hematemesis, Diarrhea, Cons tipation Similar symptoms before: Diagnosis (has had chronic pancreatitis with flares at times. Denies recent/current alcohol. Had been Rx Metformin few weeks ago and did not increased upper abd pains at that time and worsening.) Review of Systems Constitutional: denies: Fever, Chills, Myalgias Nose: denies: Rhinorrhea / runny nose, Congestion Throat: denies: Sore throat Cardiac: denies: Chest pain / pressure, Palpitations Respiratory: reports: Dyspnea. 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, 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) : None HEENT: Other Psych: Depression, Anxiety Musculoskeletal: Chronic back pain Derm: None - Past Surgical History Past Surgical History: Yes General: Other /DERRICK FOLLOWER: Other - Present Medications Home Medications: Ambulatory Orders Medication Instructions Recorded Confirmed Albuterol Sulfate [Albuterol 2 puffs IH Q4H PRN 05/06/20 08/07/23 Sulfate Hfa] Pnv No.121/Iron/Folic Acid 1 each PO DAILY #30 tablet 12/01/21 08/07/23 [ Multivitamin Tablet] Thiamine [Vitamin B-1] 100 mg PO DAILY #30 tablet 12/01/21 08/07/23 Acetaminophen [Tylenol] 1,000 mg PO Q6H PRN 11/21/22 08/07/23 Lipase/Protease/Amylase [Zenpep Dr 1 cap PO TIDWM 11/21/22 08/07/23 20,000 Unit Capsule] Potassium Chloride [K-Dur] 10 meq PO DAILY 11/21/22 08/07/23 Mirtazapine 15 mg PO HS 06/21/23 08/07/23 Ondansetron Odt [Zofran] 4 mg TL Q6H PRN #10 tablet 06/21/23 08/07/23 Pantoprazole [Protonix] 40 mg PO DAILY 06/21/23 08/07/23 Furosemide [Lasix] 20 mg PO DAILY 08/07/23 08/07/23 Sucralfate [Carafate] 1 tablet PO ACHS 08/07/23 08/07/23 Venlafaxine ER [Effexor ER] 75 mg PO DAILY 08/07/23 08/07/23 oxyCODONE [Roxicodone] 2.5 mg PO Q8HR PRN 08/07/23 08/07/23 Ondansetron Odt [Zofran] 4 mg TL Q6H PRN #10 tablet 11/29/23 cephALEXin [Keflex] 500 mg PO Q6H #28 cap 11/29/23 oxyCODONE [Roxicodone] 5 mg PO Q8HR PRN #12 tablet 11/29/23 Cefdinir 300 mg PO BID #20 cap 11/30/23 Metoclopramide [Reglan] 10 mg PO Q6H PRN #20 tablet 11/30/23 metFORMIN [Glucophage] 500 mg PO BIDWM #30 tablet 12/17/23 Ondansetron Odt [Zofran] 4 mg TL Q6H PRN #20 tablet 12/27/23 - Allergies Allergies/Adverse Reactions: Allergies Allergy/AdvReac Type Severity Reaction Status Date / Time No Known Drug Allergies Allergy Verified 12/27/23 12:38 - Social History Does the pt smoke?: Yes Smoking Status: Current every day smoker Does the pt drink ETOH?: Yes Does the pt have substance abuse?: No - Immunizations Immunizations are current?: Yes Immunizations: TDAP >10years/unknown - POLST Patient has POLST: No POLST Status: Full Code PD ED PE NORMAL - Vitals Vital signs reviewed: Yes - General General: Alert and oriented X 3, Well developed/nourished, Other (upper abd pain, with intermittent vomiting. No noted blood. ) - HEENT HEENT: Moist mucous membranes - Neck Neck: Supple, no meningeal sign - Cardiac Cardiac: RRR, No murmur - Respiratory Respiratory: No respiratory distress, Clear bilaterally - Abdomen Abdomen: Soft, Other (epigastric tenderness with guarding and percussion. ) Results - Vitals Vitals: Vital Signs - 24 hr 12/27/23 12/27/23 12:14 13:41 Temperature 36.7 C Heart Rate 82 77 Respiratory 18 12 Rate Blood Pressure 132/108 H 150/106 H O2 Saturation 99 100 Oxygen O2 Source Room air - Labs Labs: Laboratory Tests 12/27/23 12/27/23 12/27/23 12:31 12:31 12:31 WBC 12.0 H RBC 4.08 L Hgb 11.9 L Hct 35.3 L MCV 86.5 MCH 29.2 MCHC 33.7 RDW 15.6 H Plt Count 302 MPV 9.8 Neut # (Auto) 7.5 H Lymph # (Auto) 3.5 [place] # (Auto) 0.6 Eos # (Auto) 0.3 Baso # (Auto) 0.0 Absolute Nucleated RBC 0.00 Nucleated RBC % 0.0 VBG pH 7.400 VBG pCO2 33.1 L VBG pO2 44.7 VBG HCO3 20.0 L VBG Total CO2 21.1 L VBG O2 Saturation 79.6 VBG Base Excess -3.9 L Sodium 132 L Potassium 4.0 Chloride 102 Carbon Dioxide 23 Anion Gap 7.0 BUN 6 Creatinine 0.5 L Estimated GFR (MDRD) 133 Glucose 412 H Calcium 9.2 Phosphorus 3.6 Magnesium 1.3 L Total Bilirubin 0.4 AST 15 ALT 10 Alkaline Phosphatase 151 H Total Protein 6.2 L Albumin 3.7 Globulin 2.5 Albumin/Globulin Ratio 1.5 Lipase 17 Serum Ketones NEGATIVE PD Medical Decision Making - ED course Complexity details: reviewed results (lipase is low so not suggesting an acute inflammatory exac, but can still be hurting more in the setting of chronic panc reatitis. ), re-evaluated patient (has some nausea after IV toradol and Dilaudid. Can give dosing antiemetics for home as slmost out of Zofran. ), d/w patient, other Departure - Departure Disposition: 01 Home, Self Care Clinical Impression: Hyperglycemia, Diabetes, Chronic pancreatitis, Upper abdominal pain, Nausea and vomiting Condition: Stable Record reviewed to determine appropriate education?: Yes Instructions: Injection Pens Dc Follow-Up: RUCHI MONROY DO [Physician No Access] - Prescriptions: Ondansetron Odt [Zofran] 4 mg TL Q6H PRN #20 tablet PRN Reason: Nausea / Vomiting Comments: The previous prescription for metformin can be discontinued. It does have enough GI side effects and now that your primary care is starting the Jardiance and the insulins, it is reasonable to discontinue the metformin. It looks like your primary care intended you to start the glargine insulin at 5 units nightly and increase to 10 units nightly if your blood sugars are still remaining over 200s after 4-5 days. The short acting insulin is intended to be between 5 and 15 units with meals depending upon your blood sugar. The prescription should come with the sliding scale denoting the amount correlated with the sugars. He also had prescribed an oral medication called Jardiance to help with your blood sugars. My suggestion is perhaps waiting a day or 2 on those until your stomach symptoms have decreased a little bit. Continue with ondansetron/Zofran as needed for nausea. Continue with your other usual medicines. Your blood test today show normal lipase and liver functions. Obviously this does not negate the idea of the chronic pancreatic pain. Continue with usual pain medicines. Your blood sugar was elevated. No signs of ketones nor acidosis. Your blood sugar should modulate better once you start the insulins. I did send a prescription for more Zofran up to your preferred pharmacy since you are picking up the insulin prescriptions later anyway. Call the Diabetes Education off here at [facility] to make an appt for help with education/demonstration of the insulin and doses, call the [facility] and ask for an appt time for Nnamdi Gottiator. [phone]. Forms: PCP List Discharge Date/Time: 12/27/23 14:41
[2023-12-27 12:38] LABS: BASOPHILS % (AUTO) 0.3 %; EOSINOPHILS # (AUTO) 0.3 10^3/uL (0.0-0.7); EOSINOPHILS % (AUTO) 2.6 %; HCT - HEMATOCRIT 35.3 % (37.0-47.0); HGB - HEMOGLOBIN 11.9 g/dL (12.0-16.0); LYMPHOCYTES # (AUTO) 3.5 10^3/uL (1.5-3.5); LYMPHOCYTES % (AUTO) 29.6 %; MEAN CORPUSCULAR HEMOGLOBIN 29.2 pg (27.0-31.0); MEAN CORPUSCULAR HGB CONC 33.7 g/dL (32.0-36.0); MEAN CORPUSCULAR VOLUME 86.5 fL (81.0-99.0); MEAN PLATELET VOLUME 9.8 fL (7.9-10.8); MONOCYTES # (AUTO) 0.6 10^3/uL (0.0-1.0); MONOCYTES % (AUTO) 4.7 %; NEUTROPHILS # (AUTO) 7.5 10^3/uL (1.5-6.6); NEUTROPHILS % (AUTO) 62.5 %; PLT - PLATELET COUNT 302 10^3/uL (130-450); RED BLOOD COUNT 4.08 10^6/uL (4.20-5.40); RED CELL DISTRIBUTION WIDTH 15.6 % (12.0-15.0)
[2023-12-27 12:47] LABS: VBG BASE EXCESS -3.9 mmol/L (-2 - +2); VBG OXYGEN SATURATION 79.6 % (60-80); VBG PCO2 33.1 mmHg (41-51); VBG PH 7.4 (7.31-7.41); VBG PO2 44.7 mmHg (25-47); VBG TOTAL CO2 21.1 mmol/L (24-29)
[2023-12-27] MEDS: KETOROLAC 15 MG/ML VIAL IVP STA (12:53)
[2023-12-27] MEDS: HYDROmorphone 1 MG/ML CARPUJECT IVP STA ×2 (12:53→14:05)
[2023-12-27] MEDS: ONDANSETRON 4 MG/2 ML VIAL IVP STA ×2 (12:53→14:05)
[2023-12-27] MEDS: SODIUM CHLORIDE 0.9% 1,000 ML IV STA (12:53)
[2023-12-27 12:54] LABS: KETONES, SERUM (ACETEST) NEGATIVE (NEGATIVE)
[2023-12-27 13:11] LABS: ALBUMIN 3.7 g/dL (3.2-5.5); ALBUMIN/GLOBULIN RATIO 1.5 (1.0-2.2); ALKALINE PHOSPHATASE 151 IU/L (42-121); ALT ALANINE AMINOTRANSFERASE 10 IU/L (10-60); AST ASPARTATE AMINOTRANSFERASE 15 IU/L (10-42); BILIRUBIN,TOTAL 0.4 mg/dL (0.2-1.0); BUN - BLOOD UREA NITROGEN 6 mg/dL (6-20); CALCIUM 9.2 mg/dL (8.5-10.3); CARBON DIOXIDE - CO2 23 mmol/L (21-32); CHLORIDE 102 mmol/L (101-111); CREATININE 0.5 mg/dL (0.6-1.3); GFR - MDRD 133 (>89); GLUCOSE 412 mg/dL (74-104); LIPASE 17 U/L (11-82); MAGNESIUM 1.3 mg/dL (1.7-2.3); PHOSPHORUS 3.6 mg/dL (2.5-5.0); SODIUM 132 mmol/L (135-145); TOTAL PROTEIN 6.2 g/dL (6.4-8.9)
[2023-12-27 13:49] VITALS: BP 150/106; O2SAT 100
[2023-12-27] MEDS: INSULIN GLARGINE-YFGN 300 UNIT/3 ML PEN SUBQ STA (14:11)
== END 2023-12-27 14:41 | disposition home or self-care (01) ==
LOC: EDUNIT# → ED 12:06
DX: E11.65 Type 2 diabetes mellitus with hyperglycemia (principal); K86.1 Other chronic pancreatitis; R11.2 Nausea with vomiting, unspecified; I10 Essential (primary) hypertension; F17.200 Nicotine dependence, unspecified, uncomplicated; E78.00 Pure hypercholesterolemia, unspecified; Z79.899 Other long term (current) drug therapy; Z79.84 Long term (current) use of oral hypoglycemic drugs
CPT/HCPCS: 36415; 80053; 82009; 82803; 83690; 83735; 84100; 85025; 96374; 96376; 99284; J1170; J1815

== ENCOUNTER 2024-01-08 02:16 | Emergency (ER) | payer MEDICAID ==
--- NOTE | 2024-01-08 02:36 | ED Physician Documentation ---
PD HPI ABD PAIN - Stated complaint Stated Complaint: ABD PX - Chief complaint Chief Complaint: Abd Pain - History obtained from History obtained from: Patient - Additional information Additional information: 48-year-old female with history of alcohol abuse, sober 1 year, chronic pancreatitis with frequent ERCPs and pancreatic stent placement presents by private vehicle from home for midepigastric abdominal pain. Patient states that she recently underwent ERCP with metal stent placement at [facility] with Dr. Ornelas, and since that time she has had severe midepigastric abdominal pain. She states that she was sent home with oxycodone but she is afraid that she is taking too many and they are not controlling her pain anyway. Review of Systems Constitutional: denies: Fever, Chills GI: reports: Abdominal Pain. 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, 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) : None HEENT: Other Psych: Depression, Anxiety Musculoskeletal: Chronic back pain Derm: None - Past Surgical History Past Surgical History: Yes General: Other /CARD ASSEMBLER: Other - Present Medications Home Medications: Ambulatory Orders Medication Instructions Recorded Confirmed Albuterol Sulfate [Albuterol 2 puffs IH Q4H PRN 05/06/20 01/08/24 Sulfate Hfa] Pnv No.121/Iron/Folic Acid 1 each PO DAILY #30 tablet 12/01/21 01/08/24 [ Multivitamin Tablet] Thiamine [Vitamin B-1] 100 mg PO DAILY #30 tablet 12/01/21 01/08/24 Acetaminophen [Tylenol] 1,000 mg PO Q6H PRN 11/21/22 01/08/24 Potassium Chloride [K-Dur] 10 meq PO DAILY 11/21/22 01/08/24 oxyCODONE [Roxicodone] 5 mg PO Q8HR PRN #12 tablet 11/29/23 01/08/24 Ondansetron Odt [Zofran] 4 mg TL Q6H PRN #20 tablet 12/27/23 01/08/24 Amitriptyline HCl 50 mg PO HS 01/08/24 01/08/24 Empagliflozin [Jardiance] 10 mg PO DAILY 01/08/24 01/08/24 Gabapentin [Neurontin] 300 mg PO TID 01/08/24 01/08/24 Insulin Detemir [Levemir Flexpen] 10 - 20 units SUBQ HS 01/08/24 01/08/24 Lipase/Protease/Amylase 6 cap PO TIDWM 01/08/24 01/08/24 [Pancrelipase Dr 5,000/17,000/24,000 [place]] Metoclopramide [Reglan] 10 mg PO Q6H PRN 01/08/24 01/08/24 Naproxen 500 mg PO BID PRN 01/08/24 01/08/24 Venlafaxine HCl [Effexor Xr] 150 mg PO DAILY 01/08/24 01/08/24 - Allergies Allergies/Adverse Reactions: Allergies Allergy/AdvReac Type Severity Reaction Status Date / Time No Known Drug Allergies Allergy Verified 01/08/24 02:26 - Social History Does the pt smoke?: Yes Smoking Status: Current every day smoker Does the pt drink ETOH?: Yes Does the pt have substance abuse?: No - Immunizations Immunizations are current?: Yes Immunizations: TDAP >10years/unknown - POLST Patient has POLST: No POLST Status: Full Code PD ED PE NORMAL - Vitals Vital signs reviewed: Yes - General General: Alert and oriented X 3, Other (apperas chronically unwell, older than stated age, underweight) - Cardiac Cardiac: Strong equal pulses, Other (tachycardia) - Respiratory Respiratory: No respiratory distress, Clear bilaterally - Abdomen Abdomen: Soft, Other (generalized tenderness to palpation) - Derm Derm: Normal color, Warm and dry, No rash - Extremities Extremities: No deformity, No tenderness to palpate, Normal ROM s pain, No edema - 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, patient safety attendant 2-12 intact, No motor deficit, Normal speech Results - Vitals Vitals: Vital Signs - 24 hr 01/08/24 01/08/24 01/08/24 02:24 03:19 03:30 Temperature 36.4 C L Heart Rate 116 H 86 78 Respiratory 20 14 15 Rate Blood Pressure 159/100 H 109/79 103/75 O2 Saturation 100 97 98 01/08/24 01/08/24 04:00 05:16 Temperature Heart Rate 74 68 Respiratory 15 16 Rate Blood Pressure 106/79 148/88 H O2 Saturation 98 99 Oxygen O2 Source Room air - Labs Labs: Laboratory Tests 01/08/24 01/08/24 01/08/24 02:37 02:37 02:37 WBC 11.5 H RBC 4.09 L Hgb 11.7 L Hct 36.7 L MCV 89.7 MCH 28.6 MCHC 31.9 L RDW 16.2 H Plt Count 317 MPV 9.0 Neut # (Auto) 7.9 H Lymph # (Auto) 2.4 [place] # (Auto) 0.7 Eos # (Auto) 0.4 Baso # (Auto) 0.1 Absolute Nucleated RBC 0.00 Nucleated RBC % 0.0 PT 12.4 INR 1.1 Sodium 136 Potassium 3.5 Chloride 104 Carbon Dioxide 25 Anion Gap 7.0 BUN 10 Creatinine 0.6 Estimated GFR (MDRD) 108 Glucose 169 H Calcium 9.4 Magnesium 1.5 L Total Bilirubin 0.5 AST 17 ALT 17 Alkaline Phosphatase 142 H Total Protein 6.6 Albumin 3.8 Globulin 2.8 Albumin/Globulin Ratio 1.4 Lipase 01/08/24 02:37 WBC RBC Hgb Hct MCV MCH MCHC RDW Plt Count MPV Neut # (Auto) Lymph # (Auto) [place] # (Auto) Eos # (Auto) Baso # (Auto) Absolute Nucleated RBC Nucleated RBC % PT INR Sodium Potassium Chloride Carbon Dioxide Anion Gap BUN Creatinine Estimated GFR (MDRD) Glucose Calcium Magnesium Total Bilirubin AST ALT Alkaline Phosphatase Total Protein Albumin Globulin Albumin/Globulin Ratio Lipase < 10 L PD Medical Decision Making - ED course Complexity details: reviewed old records, reviewed results, re-evaluated patient, considered differential, d/w patient ED course: 48-year-old female with recurrent abdominal pain, chronic pancreatitis, history of alcohol abuse in remission with worsening abdominal pain after ERCP stent replacement. Case discussed with Dr. Ornelas, who stated that post ERCP stent placement is similar to stretching out a stricture and is likely to cause pain. Could consider CT to assess for any other causes of patient's abdominal pain. Patient reassessed, pain completely resolved with IV tylenol,droperidol,0.5mg dilaudid. Sleeping soundly in ED bed. Patient states she feels better and with otherwise baseline labs, I do not feel repeat CT is needed at this time. Patient has 1 month of oxycodone filled 12/26 and no need for additional refills at this time. Patient discharged home in stable condition - Consults Consults: Consulted (name) (GI), Discussed case with (Dr. Ornelas), Other (post ERCP pain normal. Can consider CT to assess for other sources of pain, will follow up in clinic) Departure - Departure Disposition: 01 Home, Self Care Clinical Impression: Abdominal pain Qualifiers: Abdominal location: upper abdomen, unspecified Qualified Code(s): R10.10 - U pper abdominal pain, unspecified Condition: Stable Instructions: Abdominal Pain Comments: Follow up with Dr. Ornelas in clinic. Forms: PCP List Discharge Date/Time: 01/08/24 05:19
[2024-01-08 02:52] LABS: BASOPHILS # (AUTO) 0.1 10^3/uL (0.0-0.1); BASOPHILS % (AUTO) 0.9 %; EOSINOPHILS # (AUTO) 0.4 10^3/uL (0.0-0.7); EOSINOPHILS % (AUTO) 3.3 %; HCT - HEMATOCRIT 36.7 % (37.0-47.0); HGB - HEMOGLOBIN 11.7 g/dL (12.0-16.0); LYMPHOCYTES # (AUTO) 2.4 10^3/uL (1.5-3.5); LYMPHOCYTES % (AUTO) 20.9 %; MEAN CORPUSCULAR HEMOGLOBIN 28.6 pg (27.0-31.0); MEAN CORPUSCULAR HGB CONC 31.9 g/dL (32.0-36.0); MEAN CORPUSCULAR VOLUME 89.7 fL (81.0-99.0); MONOCYTES # (AUTO) 0.7 10^3/uL (0.0-1.0); NEUTROPHILS # (AUTO) 7.9 10^3/uL (1.5-6.6); NEUTROPHILS % (AUTO) 68.6 %; PLT - PLATELET COUNT 317 10^3/uL (130-450); RED BLOOD COUNT 4.09 10^6/uL (4.20-5.40); RED CELL DISTRIBUTION WIDTH 16.2 % (12.0-15.0); WHITE BLOOD COUNT 11.5 x10^3/uL (4.8-10.8)
[2024-01-08] MEDS: METOCLOPRAMIDE 10 MG/2 ML VIAL IVP STA (02:52)
[2024-01-08] MEDS: HYDROmorphone 1 MG/ML CARPUJECT IVP STA (02:55)
[2024-01-08] MEDS: SODIUM CHLORIDE 0.9% 1,000 ML IV STA (02:55)
[2024-01-08] MEDS ORDERED: iohexoL-300 100 ML VIAL ONE (02:56)
[2024-01-08 02:58] LABS: INR 1.1 (0.8-1.2); PT - PROTHROMBIN TIME 12.4 secs (9.9-12.6)
[2024-01-08] MEDS: DROPERIDOL 5 MG/2 ML VIAL IVP STA (02:58)
[2024-01-08] MEDS: ACETAMINOPHEN 1,000 MG/100 ML 1,000 MG/100 ML BAG IV ONE (02:59)
[2024-01-08 03:02] LABS: MAGNESIUM 1.5 mg/dL (1.7-2.3)
[2024-01-08 03:08] LABS: ALBUMIN 3.8 g/dL (3.2-5.5); ALBUMIN/GLOBULIN RATIO 1.4 (1.0-2.2); BILIRUBIN,TOTAL 0.5 mg/dL (0.2-1.0); CALCIUM 9.4 mg/dL (8.5-10.3); CREATININE 0.6 mg/dL (0.6-1.3); POTASSIUM 3.5 mmol/L (3.5-4.5); TOTAL PROTEIN 6.6 g/dL (6.4-8.9)
[2024-01-08 05:17] VITALS: BP 148/88; O2SAT 99
== END 2024-01-08 05:19 | disposition home or self-care (01) ==
LOC: ED 02:16
DX: R10.10 Upper abdominal pain, unspecified (principal); F17.200 Nicotine dependence, unspecified, uncomplicated; Z96.89 Presence of other specified functional implants
CPT/HCPCS: 36415; 80053; 83690; 83735; 85025; 85610; 96374; 96375; 99285; J0131; J1170; J2765

== ENCOUNTER 2024-10-12 03:15 | Inpatient (IN) ==
[2024-10-12 03:50] LABS: BASOPHILS # (AUTO) 0.1 10^3/uL (0.0-0.1); BASOPHILS % (AUTO) 0.6 %; EOSINOPHILS % (AUTO) 0.1 %; HCT - HEMATOCRIT 50.7 % (37.0-47.0); HGB - HEMOGLOBIN 16.9 g/dL (12.0-16.0); LYMPHOCYTES # (AUTO) 1.6 10^3/uL (1.5-3.5); LYMPHOCYTES % (AUTO) 9.2 %; MEAN CORPUSCULAR HEMOGLOBIN 30.3 pg (27.0-31.0); MEAN CORPUSCULAR HGB CONC 33.3 g/dL (32.0-36.0); MEAN CORPUSCULAR VOLUME 90.9 fL (81.0-99.0); MEAN PLATELET VOLUME 10.5 fL (7.9-10.8); MONOCYTES # (AUTO) 0.9 10^3/uL (0.0-1.0); MONOCYTES % (AUTO) 4.9 %; NEUTROPHILS # (AUTO) 14.6 10^3/uL (1.5-6.6); NEUTROPHILS % (AUTO) 84.6 %; PLT - PLATELET COUNT 528 10^3/uL (130-450); RED BLOOD COUNT 5.58 10^6/uL (4.20-5.40); RED CELL DISTRIBUTION WIDTH 14.1 % (12.0-15.0); WHITE BLOOD COUNT 17.3 x10^3/uL (4.8-10.8)
[2024-10-12 03:56] LABS: KETONES, SERUM (ACETEST) SMALL (NEGATIVE)
--- NOTE | 2024-10-12 03:57 | ED Physician Documentation ---
History of Present Illness Stated complaint Stated Complaint: SORE THROAT, N/V X 1 WEEK Chief complaint Chief Complaint: Abd Pain Additonal information Additional information: BIBA. Patient complains of 4 to 5 days of nausea and vomiting. Patient is an insulin-dependent diabetic, but has not been taking her insulin for the past 4 to 5 days because she is not certain if she should be taking it when she is having difficulty tolerating p.o. Initially, her nausea and vomiting were intermittent and she was still able to tolerate p.o. However, nausea vomiting progressed to the point of not being well tolerate any p.o. solids, and unable to even tolerate sips of water since last night. Her only pain complaint is sore throat which developed subsequent to the onset of vomiting. She denies abdominal pain. She has not noticed any blood in the vomitus, nor is she noting any coffee-ground emesis. She states that the vomit "looks brown" (per patient). Denies diarrhea, denies hematochezia, denies dark-black/tarry stools. Other relevant past medical history includes history of alcoholism. Patient says she has not had any alcohol for at least the past 2 weeks. She also has had chronic pancreatitis. Furthermore, she tells me she has been diagnosed with cirrhosis. However, she says that she was seen by a specialist somewhere at a hospital in [place] within the past year and (per patient) was told that the cirrhosis "was improving" (per patient). I asked patient if she has ever been told she has varices and she is not familiar with this diagnosis. I described did not layperson terms, and it still does not sound familiar to her. Meds/Allgy Home Medications Ambulatory Orders Medication Instructions Recorded Confirmed albuterol sulfate 90 mcg/actuation 2 puff inhalation Q4H PRN Wheezing 05/06/20 10/12/24 aerosol inhaler vitamins no.121-iron 28 1 ea PO DAILY #30 tabs 12/01/21 10/12/24 mg-folic acid 800 mcg tablet thiamine mononitrate (vit B1) 100 100 mg PO DAILY #30 tabs 12/01/21 10/12/24 mg tablet (Vitamin B-1 (mononitrate)) acetaminophen 500 mg tablet 500 mg PO Q6H PRN Pain 1-4 11/21/22 10/12/24 potassium chloride 20 mEq 10 meq PO DAILY 11/21/22 10/12/24 tablet,extended release(part/cryst) (Klor-Con M) ondansetron 4 mg disintegrating 4 mg translingual Q6H PRN Nausea / 12/27/23 10/12/24 tablet Vomiting #20 tabs Venlafaxine Hcl [Effexor Xr] 75 mg PO DAILY 01/08/24 10/12/24 amitriptyline 50 mg tablet 100 mg PO DAILY 01/08/24 10/12/24 gabapentin 300 mg capsule 300 mg PO TID 01/08/24 10/12/24 insulin detemir U-100 100 unit/mL 5 units subcut BID 01/08/24 10/12/24 (3 mL) subcutaneous pen (Levemir FlexPen) [id number] 6 cap PO TIDWM 01/08/24 10/12/24 5,000-17,000-24,000 unit capsule, delayed rel (Zenpep) naproxen 500 mg tablet,delayed 500 mg PO BID PRN Pain 1-4 01/08/24 10/12/24 release cetirizine 10 mg tablet 10 mg PO DAILY 04/13/24 10/12/24 cyanocobalamin (vitamin B-12) 500 500 mcg PO DAILY 04/13/24 10/12/24 mcg tablet duloxetine 30 mg capsule,delayed 30 mg PO DAILY 04/13/24 10/12/24 release insulin lispro 100 unit/mL 5 unit subcut TIDWM 04/13/24 10/12/24 subcutaneous pen magnesium oxide 500 mg capsule 500 mg PO HS 04/13/24 10/12/24 sucralfate 1 gram tablet (Carafate) 1 tab PO ACHS 04/13/24 10/12/24 empagliflozin 25 mg tablet 25 mg PO DAILY 10/12/24 10/12/24 (Jardiance) Allergies Allergies Allergy/AdvReac Type Severity Reaction Status Date / Time No Known Drug Allergies Allergy Verified 10/12/24 03:23 PFSH Social History Social History Smoking Status: Former smoker Number of Years Smoked: 15 How many cigarettes a day do you smoke? (20 cigarettes=1 Pk): 20 Do you dip or chew tobacco?: No Do you vape?: No Patient requests smoking cessation consult: No Initiate information on smoking cessation: No Living arrangement: At home Living Condition: With family Relationship: Child Level: Independent Do you feel safe in your home environment?: Yes Suffered physical, verbal, emotional, or financial abuse?: No History of Abuse: No ETOH Use: Frequency: Weekly Number of Amount/day: 1 Substance Use: denies use POLST Patient has POLST: No POLST Status: Full Code Exam Constitutional abnormal general appearance (chronically ill), (appears older than stated age) and (frail appearing) HENMT oral mucous membranes abnormal (parched mucous membranes) no posterior oropharyngeal erythema, edema, exudate Respiratory breath sounds equal bilaterally and clear to auscultation bilaterally Cardiovascular heart rate abnormal (tachycardic), regular rhythm noted, no murmur and no JVD Gastrointestinal abdomen soft to palpation, nontender to palpation, nondistended and normoactive bowel sounds Neurology GCS 15 Psychiatry mental status grossly normal and oriented x3 Skin skin color normal Results Vitals Vitals: Vital Signs - 24 hr 10/12/24 03:20 10/12/24 03:31 10/12/24 04:18 Temperature 36.1 C L 36.1 C L Temperature Source Temporal Artery Scan Tympanic Pulse Rate 136 H 145 H 150 H Respiratory Rate 22 22 26 H Blood Pressure 154/110 H 154/110 H 161/121 H O2 Saturation 92 94 100 O2 Source Room air Room air Room air Pain Intensity 10 10 10 10/12/24 04:40 Temperature Temperature Source Pulse Rate Respiratory Rate Blood Pressure O2 Saturation O2 Source Pain Intensity 10 Oxygen O2 Source Room air Labs Labs: Laboratory Tests 10/12/24 10/12/24 10/12/24 03:30 03:43 04:38 WBC 17.3 H RBC 5.58 H Hgb 16.9 H Hct 50.7 H MCV 90.9 MCH 30.3 MCHC 33.3 RDW 14.1 Plt Count 528 H MPV 10.5 Neut # (Auto) 14.6 H Lymph # (Auto) 1.6 [place] # (Auto) 0.9 Eos # (Auto) 0.0 Baso # (Auto) 0.1 Absolute Nucleated RBC 0.00 Nucleated RBC % 0.0 VBG pH 7.102 L* VBG pCO2 23.2 L VBG pO2 79.2 H VBG HCO3 7.3 L VBG Total CO2 8.0 L VBG O2 Saturation 87.0 H VBG Base Excess -22.5 L Sodium 128 L Potassium 3.7 Chloride 87 L Carbon Dioxide 9 L* Anion Gap 32.0 H BUN 35 H Creatinine 1.4 H Estimated GFR (MDRD) 40 L Glucose 594 H* POC Whole Bld Glucose 566 Calcium 10.6 H Magnesium 2.9 H Total Bilirubin 0.7 AST 18 ALT 28 Alkaline Phosphatase 221 H Total Protein 9.1 H Albumin 5.4 Globulin 3.7 Albumin/Globulin Ratio 1.5 Lipase < 10 L Ethyl Alcohol < 10.0 Serum Ketones SMALL H Blood Type O NEGATIVE Antibody Screen NEGATIVE Rads (name of study) chest xray: Relevant Findings:: Prelim report reviewed and See rad report PD Medical Decision Making ED course Complexity details: reviewed old records, reviewed results, re-evaluated patient, considered differential and d/w patient ED course: H&P are consistent with DKA. Serum glucose 594, CO2 (on ER abdominal panel) is 9. Hyponatremia (128). BUN is 35 with creatinine 1.4 (reviewing previous results, patient's baseline is normal renal function). Elevated anion gap (32). Small serum ketones detected. Leukocytosis (17.3 WBC). Elevated hemoglobin (16.9), likely due to hemoconcentration/dehydration. Elevated platelets (525). pH on VBG is 7.1. Normal tests that are notable/relevant include normal bilirubin, AST, ALT, lipase (marked as low result by lab, <10), and undetectable serum ethanol Treatment for DKA is initiated in the ED with insulin drip, IV fluid bolus. She is also given 4 mg IV Zofran (several episodes of emesis early in ED stay. She repeatedly requests something for her throat pain. I was considering Toradol, and although this would not entirely contraindicate this as an option, at this time we will hold off on NSAIDs due to abnormal renal function test. She is given 2 mg IV morphine. D/W [facility] hospitalist who accepts admit to [facility] ICU Discharge Plan Discharge Patient Disposition: 66 [facility] DC/Xfer Clinical Impression: Diabetic ketoacidosis Qualifiers: Diabetes mellitus type: type 1 Diabetes mellitus complication detail: without coma Qualified Code(s): E10.10 - Type 1 diabetes mellitus with ketoacidosis without coma Interventions: ED Admission Assessment Last Done: 10/12/24 05:55
[2024-10-12 04:02] LABS: VBG BASE EXCESS -22.5 mmol/L (-2 - +2); VBG PCO2 23.2 mmHg (41-51); VBG PO2 79.2 mmHg (25-47)
[2024-10-12 04:02] LABS: MAGNESIUM 2.9 mg/dL (1.7-2.3)
[2024-10-12 04:11] LABS: VBG PH 7.102 (7.31-7.41)
[2024-10-12 04:11] LABS: ALBUMIN 5.4 g/dL (3.2-5.5); ALBUMIN/GLOBULIN RATIO 1.5 (1.0-2.2); ALKALINE PHOSPHATASE 221 IU/L (42-121); ALT ALANINE AMINOTRANSFERASE 28 IU/L (10-60); AST ASPARTATE AMINOTRANSFERASE 18 IU/L (10-42); BILIRUBIN,TOTAL 0.7 mg/dL (0.2-1.0); BUN - BLOOD UREA NITROGEN 35 mg/dL (6-20); CALCIUM 10.6 mg/dL (8.5-10.3); CARBON DIOXIDE - CO2 9 mmol/L (21-32); CHLORIDE 87 mmol/L (101-111); CREATININE 1.4 mg/dL (0.6-1.3); GFR - MDRD 40 (>89); GLUCOSE 594 mg/dL (74-104); LIPASE < 10 U/L (11-82); POTASSIUM 3.7 mmol/L (3.5-4.5); SODIUM 128 mmol/L (135-145); TOTAL PROTEIN 9.1 g/dL (6.4-8.9)
[2024-10-12 04:12] LABS: ETOH - ETHANOL < 10.0 mg/dL
[2024-10-12] MEDS: INSULIN REGULAR IN 0.9 % NS 100 UNIT/100 ML BAG IV STA (04:40)
[2024-10-12] MEDS: MORPHINE 2 MG/ML CARPUJECT IVP STA (04:40)
[2024-10-12] MEDS: ONDANSETRON 4 MG/2 ML VIAL IVP STA (04:55)
[2024-10-12] MEDS: SODIUM CHLORIDE 0.9% 1,000 ML IV STA (05:00)
--- NOTE | 2024-10-12 05:05 | HISTORY & PHYSICAL EXAMINATION ---
Chief Complaint Chief Complaint Chief Complaint: n/v, weakness, dehydration History of Present Illness History of Present Illness HPI Comment/Other: pt with h/o insulin dependent diabetes, liver cirrhosis ("resolved" per pt), chronic pancreatitis, presents with persistent nausea and vomiting x 4-5 days. pt has not been taking her insulin for nearly a week as she has felt weak and tired. no chest pain, sob, no diarrhea. no fevers but has chills. feels weak. lives with children. denies t/e/d, but states she used to drink. no falls or ams. denies recent travel or sick contacts. Review of Systems Status of ROS: 10 or more systems reviewed and unremarkable except as noted in history and below PFSH Social History Social History Smoking Status: Current every day smoker Number of Years Smoked: 15 How many cigarettes a day do you smoke? (20 cigarettes=1 Pk): 20 Do you dip or chew tobacco?: No Do you vape?: No Patient requests smoking cessation consult: No Initiate information on smoking cessation: No Living arrangement: At home Living Condition: With family Relationship: Child Do you feel safe in your home environment?: Yes Suffered physical, verbal, emotional, or financial abuse?: No History of Abuse: No ETOH Use: Frequency: Weekly Number of Amount/day: 1 POLST Patient has POLST: No POLST Status: Full Code Meds/Allgy Home Medications Ambulatory Orders Medication Instructions Recorded Confirmed albuterol sulfate 90 mcg/actuation 2 puff IH Q4H PRN Wheezing 05/06/20 04/13/24 aerosol inhaler vitamins no.121-iron 28 1 ea PO DAILY #30 tabs 12/01/21 04/13/24 mg-folic acid 800 mcg tablet thiamine mononitrate (vit B1) 100 100 mg PO DAILY #30 tabs 12/01/21 04/13/24 mg tablet (Vitamin B-1 (mononitrate)) acetaminophen 500 mg tablet 500 mg PO Q6H PRN Pain 1-4 11/21/22 04/13/24 potassium chloride 20 mEq 10 meq PO DAILY 11/21/22 04/13/24 tablet,extended release(part/cryst) (Klor-Con M) oxycodone 5 mg tablet 5 mg PO Q8HR PRN Pain 5-7 #12 tabs 11/29/23 04/13/24 ondansetron 4 mg disintegrating 4 mg translingual Q6H PRN Nausea / 12/27/23 04/13/24 tablet Vomiting #20 tabs Venlafaxine Hcl [Effexor Xr] 75 mg PO DAILY 01/08/24 04/13/24 amitriptyline 50 mg tablet 50 mg PO HS 01/08/24 04/13/24 empagliflozin 10 mg tablet 10 mg PO DAILY 01/08/24 04/13/24 (Jardiance) gabapentin 300 mg capsule 300 mg PO TID 01/08/24 04/13/24 insulin detemir U-100 100 unit/mL 5 units subcut BID 01/08/24 04/13/24 (3 mL) subcutaneous pen (Levemir FlexPen) seefhw-woukzfob-kxhhpad 6 cap PO TIDWM 01/08/24 04/13/24 5,000-17,000-24,000 unit capsule, delayed rel (Zenpep) metoclopramide HCl 10 mg tablet 10 mg PO Q6H PRN Nausea / Vomiting 01/08/24 04/13/24 naproxen 500 mg tablet,delayed 500 mg PO BID PRN Pain 1-4 01/08/24 04/13/24 release cetirizine 10 mg tablet 10 mg PO DAILY 04/13/24 04/13/24 cyanocobalamin (vitamin B-12) 500 500 mcg PO DAILY 04/13/24 04/13/24 mcg tablet duloxetine 30 mg capsule,delayed 30 mg PO DAILY 04/13/24 04/13/24 release fluconazole 150 mg tablet 150 mg PO DAILY 04/13/24 04/13/24 insulin lispro 100 unit/mL 5 unit subcut TIDWM 04/13/24 04/13/24 subcutaneous pen magnesium oxide 500 mg capsule 500 mg PO HS 04/13/24 04/13/24 ondansetron HCl 4 mg tablet 4 mg PO Q8H PRN Nausea / Vomiting 04/13/24 04/13/24 pantoprazole 40 mg tablet,delayed 40 mg PO DAILY 04/13/24 04/13/24 release sucralfate 1 gram tablet (Carafate) 1 tab PO ACHS 04/13/24 04/13/24 Allergies Allergies Allergy/AdvReac Type Severity Reaction Status Date / Time No Known Drug Allergies Allergy Verified 10/12/24 03:23 Exam Exam gen - tired, thin, appears older than stated age heent - dry mucosae, nc/at, eomi heart - per ed charting lungs - per ed charting abd - soft, details per ed charting msk - thin extremities, no obvious trauma noted or reported Conclusion/Plan Problem List (1) Diabetic ketoacidosis: Plan: pt with - - dka with likely h/o same insulin drip, ivf, electrolyte repletion, supportive mgmt - ngoc pre-renal azotemia d/t dehydration check renal sono continue ivf - hyponatremia factitious in setting of hyperglycemia corrected Na 140 will continue 1/2NS IVF at this time - elevated bp d/t current presentation monitor for now - leukocytosis d/t current presentation no obvious infectious source but will check ua and cxr - thrombocytosis in setting of current presentation hemoconcetration d/t dehydration - generalized weakness in setting of above fall precautions pt eval and treat - chronic pancreatitis d/t etoh abuse continue pancrealipase high risk of frequent uncontrolled hyperglycemic episodes - nausea / vomiting d/t hal no obvious abd pain at this time check ct abd/pelvis f/u labs, electrolytes, glucose status further orders per clinical course Qualifiers: Diabetes mellitus complication detail: without coma Diabetes mellitus type: type 1 Qualified Code(s): E10.10 - Type 1 diabetes mellitus with ketoacidosis without coma Lab Results 10/12/24 03:30 10/12/24 03:30
[2024-10-12] MEDS ORDERED: ALBUTEROL NEB 2.5 MG/3 ML INH PRN (05:30)
[2024-10-12 05:51] LABS: BILIRUBIN,URINE NEGATIVE (NEGATIVE); GLUCOSE, URINE (UA) 500 mg/dL (NEGATIVE); KETONES,URINE (UA) >=80 mg/dL (NEGATIVE); LEUKOCYTE ESTERASE, URINE NEGATIVE (NEGATIVE); NITRITE,URINE POSITIVE (NEGATIVE); OCCULT BLOOD,URINE SMALL (NEGATIVE); PROTEIN,URINE 100 mg/dL (NEGATIVE); UROBILINOGEN,URINE 0.2 (NORMAL) E.U./dL (NORMAL)
[2024-10-12 05:54] LABS: CLARITY,URINE HAZY (CLEAR); HCG UR QUAL NEGATIVE
[2024-10-12 06:02] LABS: BACTERIA,URINE Few /HPF (None Seen); CASTS, URINE 3-5 Hyaline Casts /LPF; RBC,URINE 0-5 /HPF (0-5); SQUAMOUS EPITHELIAL CELL,UR RARE Squamous (<= Few)
[2024-10-12] MEDS: oxyCODONE 5 MG TABLET PO PRN (06:16)
[2024-10-12] MEDS: SODIUM CHLORIDE 0.9% 1,000 ML IV ONE (06:17)
[2024-10-12] MEDS: GABAPENTIN 100 MG CAPSULE PO SCH (06:18)
[2024-10-12] MEDS: INSULIN REGULAR IN 0.9 % NS 100 UNIT/100 ML BAG IV SCH (06:18)
[2024-10-12 06:30] LABS: BASOPHILS % (AUTO) 0.4 %; EOSINOPHILS % (AUTO) 38.9 %; HCT - HEMATOCRIT 48.9 % (37.0-47.0); HGB - HEMOGLOBIN 16.1 g/dL (12.0-16.0); LYMPHOCYTES % (AUTO) 8.2 %; MEAN CORPUSCULAR HEMOGLOBIN 30.2 pg (27.0-31.0); MEAN CORPUSCULAR HGB CONC 32.9 g/dL (32.0-36.0); MEAN CORPUSCULAR VOLUME 91.7 fL (81.0-99.0); MEAN PLATELET VOLUME 9.8 fL (7.9-10.8); MONOCYTES % (AUTO) 4.6 %; NEUTROPHILS % (AUTO) 47.4 %; PLT - PLATELET COUNT 500 10^3/uL (130-450); RED BLOOD COUNT 5.33 10^6/uL (4.20-5.40); RED CELL DISTRIBUTION WIDTH 14.2 % (12.0-15.0)
[2024-10-12 06:32] LABS: VBG BASE EXCESS -19.4 mmol/L (-2 - +2); VBG PCO2 25.9 mmHg (41-51); VBG PO2 36.5 mmHg (25-47); VBG TOTAL CO2 10.2 mmol/L (24-29)
[2024-10-12 06:34] LABS: VBG PH 7.165 (7.31-7.41)
[2024-10-12 06:40] LABS: ABNORMAL LYMPHS % (MANUAL) 0 %
[2024-10-12 06:47] LABS: CHOLESTEROL 262 mg/dL; HDL CHOLESTEROL 52 mg/dL; LDL CHOLESTEROL,CALCULATED 149 mg/dL; LDL/HDL RATIO 2.9 (<4.4); MAGNESIUM 2.4 mg/dL (1.7-2.3); TRIGLYCERIDES 303 mg/dL; VLDL CHOLESTEROL 61 mg/dL
[2024-10-12 06:48] LABS: ALBUMIN/GLOBULIN RATIO 1.5 (1.0-2.2); ALKALINE PHOSPHATASE 213 IU/L (42-121); ALT ALANINE AMINOTRANSFERASE 28 IU/L (10-60); AST ASPARTATE AMINOTRANSFERASE 16 IU/L (10-42); BILIRUBIN,TOTAL 0.5 mg/dL (0.2-1.0); BUN - BLOOD UREA NITROGEN 33 mg/dL (6-20); CALCIUM 9.8 mg/dL (8.5-10.3); CARBON DIOXIDE - CO2 12 mmol/L (21-32); CHLORIDE 98 mmol/L (101-111); CREATININE 1.2 mg/dL (0.6-1.3); GFR - MDRD 48 (>89); GLUCOSE 339 mg/dL (74-104); POTASSIUM 3.4 mmol/L (3.5-4.5); SODIUM 133 mmol/L (135-145); TOTAL PROTEIN 8.4 g/dL (6.4-8.9)
[2024-10-12 07:07] LABS: BAND NEUTROPHILS % (MANUAL) 6 %; LYMPHOCYTES # (MANUAL) 2.7 10^3/uL (1.5-3.5); LYMPHOCYTES % (MANUAL) 9 %; MONOCYTES # (MANUAL) 1.1 10^3/uL (0.0-1.0); NEUTROPHILS # (MANUAL) 15.2 10^3/uL (1.5-6.6); RBC MORPHOLOGY (MULTIPLE) 1+ ANISOCYTOSIS (NORMAL); REACTIVE LYMPHS % (MANUAL) 5 %
[2024-10-12 07:08] LABS: DIFFERENTIAL COMMENT MANUAL DIFFERENTIAL; PLATELET ESTIMATE, MANUAL INCREASED (>450,000) (NORMAL)
[2024-10-12] MEDS: SODIUM CHLORIDE 0.45% 1,000 ML IV SCH (08:09)
[2024-10-12] MEDS: PROCHLORPERAZINE 10 MG/2 ML VIAL IVP PRN (08:13)
[2024-10-12] MEDS: HYDROmorphone 0.5 MG/0.5 ML SYRINGE IVP STA (08:17)
[2024-10-12] MEDS: PHENOL THROAT SPRAY 177 ML MM PRN (08:28)
[2024-10-12] MEDS: POTASSIUM CHLOR 10 MEQ/100 ML 10 MEQ/100 ML BAG IV ONE ×3 (08:29→13:15)
[2024-10-12 08:41] LABS: MAGNESIUM 2.2 mg/dL (1.7-2.3)
[2024-10-12 08:43] LABS: CALCIUM 9.2 mg/dL (8.5-10.3); POTASSIUM 3.7 mmol/L (3.5-4.5)
[2024-10-12] MEDS ORDERED: VENLAFAXINE HCL 150 MG PO SCH (09:00)
--- NOTE | 2024-10-12 09:21 | PROVIDER PROGRESS NOTE ---
Progress Note Progress Note Progress Note: October 12, 2024 9 AM Review of chart: Admit November 27, 2022 for chronic pancreatitis and control of abdominal pain with IV Dilaudid and IV antiemetics. At that time she was due to get a second ERCP at [facility] to remove retained common bile duct stones. ER visit November 29 for left arm phlebitis ER visit March 06 2023 for headache. Responded to IV fluids, droperidol, Dilaudid. ER visit March 08, 2023 for tripping over her dog's leash, face planting on the gravel, loss of consciousness, and a facial laceration with a headache. GI visit March 29, 2023. [facility] Dr. Ornelas. 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 Previous history of CBD stent that was placed and is felt to be potentially contributing to her symptoms at this time due to the nature of biliary stricture. Given severity of patient's symptoms I recommend stent removal at this time and I will attempt to cannulate the pancreatic duct once more which was unsuccessful at . However patient needs to quit smoking before procedure. She would also benefit from EUS guided celiac plexus block. Plan was to proceed with EUS/ERCP with plans for plexus block. ER visit April 01, 2023 for epigastric abdominal pain. IV fluids, IV Dilaudid, pain resolved and went home. ER visit May 05, 2023 generalized abdominal pain in the ER. Nausea vomiting. IV fluids, IV Zofran, IV morphine, IV Dilaudid, IV Toradol. On-call GI at [facility] called. No need for immediate transfer or urgent intervention. ER May 11, 2023. Right upper quadrant pain. Chronic urinary hesitancy and difficulty voiding. Having issues with refilling pain medicine prescribed by her primary care provider. She was asked to follow-up with her primary care provider. ER May 12, 2023 headache and vomiting. She mentions that stent is to be removed May 13 but everyone has COVID. Treated with IV fluids, Toradol, droperidol and Dilaudid. [place] better sent home. ER June 10, 2023 Evaluation and treatment of chronic abdominal pain. Stent removal now rescheduled for June 23, 2023. Ran out of tramadol. Ran out of Zofran. Half a milligram of Dilaudid, single dose of tramadol improved symptoms and she went home. Discharged on [place] prepack. June 21, 2023 abdominal pain visit in the ER. Supposed to see ER doctor today for stent removal but because was porting increased pain they referred her to ER. CT with inflammation around the pancreas concerning for acute on chronic pancreatitis. Given single dose of medication. Discharged and urged to follow- up with GI to get stent removed. E. coli grew out of urine. Patient without symptoms and follow-up 2 days later. August 07, 2023 abdominal pain. Mentioned that July she had an ERCP with Dr. Ornelas. Sent home. November 28, 2023 right upper quadrant and epigastric pain. ERCP done November 20. Stent removed. Large amount of sludge and debris in both common bile duct and pancreatic duct. Large stone within the pancreatic duct that was crushed in a new pancreatic duct stent placed. Glucose newly elevated. Treated in the ER and encouraged to follow-up with PCP and GI. December 16, 2023 worsening hyperglycemia over 2 months. Having a UTI. Now with fever, blurry vision. Received insulin, IV fluids, antiemetics. Reminded to follow-up with PCP and get diabetic education. Sent home. December 27, 2023. Abdominal pain. Started on metformin in PCP office, also Lantus, lispro, Jardiance. Patient had not gotten from the pharmacy yet. Metformin discontinued. Treated in the ER with IV fluids, insulin, and reinstructed on the use of her medications, and sent home. January 08, 2024. Presents with mid epigastric abdominal pain. Mentions that she had another ERCP and another metal stent. She was home with oxycodone and it was not taking care of the pain and then she felt she was taking too many of the oxycodone. Dr. Ornelas spoken to who feels that the new stent could be stretching out the stricture and causing pain. CT done. Patient given Tylenol droperidol and IV Dilaudid and sleeping soundly. Already had 1 month of oxycodone so no refills. Discharged home. 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 Approximately 3:30 AM complaining of abdominal pain and sore throat. Nausea and vomiting. Sore throat was for a week. She can drink liquids but cannot eat because feels like something is stuck in her throat. She was cold to touch, tachycardic on arrival. Since that time she has been on an IV insulin drip because she was found to be in DKA. But no pneumonia. Even though she is supposed to be on her medications she has not taken them in over a week and these includes Lantus and lispro. She is overwhelmed. Cannot seem to get it together Patient is complaining of abdominal pain. And nausea. The Zofran and the oral oxycodone are working and she would like IV opioids and a different antiemetic.Nursing notes that her blood pressure is rising. The admitting provider gave her clear liquid diet. I explained to the patient that I do want her to drink water, diet drinks, diet Gatorade, unsweetened tea but no carbs. Son is at the bedside. He says that it is hard to support his mom. He, mom, and 10-year-old sister all live together. He is at work during the day. And the 10-year-old was at home with mom so she really does not have a lot of support when she gets sick like this. Exam: Blood pressure 204/137. Blood pressure readings show her to be 154/110 when she was admitted and gradually climbing to the high this morning in the left brachial artery. She does not have symptoms with this. No chest pain, no shortness of breath, no headache. Pulse 117, respirations 12, temp 37.6, O2 sat 99%. 5 feet 3 inches female, 49.5 kg. Psychomotor slowing. Heavy lidded eyes. Cachectic. Eyes are sunken into her head, temporal wasting. Dry oral mucosa, cracked lips. neck is shotty adenopathy. Son is at the bedside checking in with mom. He is on his way to work. Lungs are clear to auscultation and percussion without any increased respiratory effort respiratory distress Tachycardic regular rate and rhythm. She was 136 on admission. Has stayed into the 140s and is 117 right now. Abdomen is tender in the epigastrium, right upper quadrant and less so in the left upper quadrant. But no rebound or guarding. Hypoactive bowel sounds. Abdomen is scaphoid, not distended. No masses. Extremities are remarkable for moderate loss of muscle mass. I reviewed her labs: She is hyponatremic. She has been intermittently hyponatremic most of this year. 132, down to 128. This morning she is 133. Potassium is 3.7, carbon dioxide level is 13. Slightly improved from 630 this morning when she was 12. Anion gap is coming down. At 6 this morning she was 23 and now she is 19. BUN was 33 earlier this morning and now 29. Creatinine 1.0. On the insulin drip for glucose is still 278, 259. Calcium is 9.2, magnesium 2.2 Hematology shows a white cell count that is elevated. On admission she was 17.3 and 3 hours later she is 19. Hemoglobin started at 16.9 and is 16.1. Platelets are reactive thrombocytosis and she was 528 this morning and 500 later. Her final report with regards to chest x-ray and CT of the abdomen are not ready yet. However preliminary report shows small nonobstructive left nephrolithiasis. Changes of chronic pancreatitis. And the lungs are clear with the heart size is normal. Assessment/plan 1. Diabetic ketoacidosis. Inpatient status with insulin drip, IV fluids, supplementation of potassium, calcium and magnesium are ongoing. Still on the drip is at this time. I have told the patient that she can have clear liquids but nothing with carbs. She does not need to be NPO. I explained that I will keep her on the insulin drip until her sugars drop to below 150 or so. Then I will transition her to her Lantus and sliding scale insulin. At that time I will begin feeding her the food that is tolerated. So far this morning she has hyponatremia but her potassium is 3.7, calcium 9.2, magnesium 2.9. Her anion gap is slowly improving in the last 4 hours from 23-19. Carbon dioxide level has also improved slowly and was 9 on admission and a few hours later 13. I have also spoken to nutrition and diabetic education about her this morning. They are going to be working with her on a continuous glucose monitor and show her how to use it. They were reinstructed on the use of Lantus and lispro. 2. Chronic abdominal pain from chronic pancreatitis. Previous notes show that she would have been a good candidate for celiac block. Once the acute issue of her DKA is resolved, I will contact her GI specialist at [facility] (Dr. Ornelas) and see where they are with that referral to . Will try and avoid using too many IV opioids. She has an opioid use disorder and is seen in the emergency room requesting IV opioids on a frequent basis. Although I will say that her ER visit seem to have dropped off in the last year or so. I am giving her IV Dilaudid x 1. And changing the Zofran to Compazine. 3. Severe hypertension. A new problem for her. I will start hydralazine 10 mg IV push once now. And then changed to 10 mg IV push 4 times daily as needed systolic greater than 180. This may be due to the pain, nausea. 4. Leukocytosis. Urinalysis had proteinuria, glucosuria, ketonuria, hematuria, was positive for nitrites. Negative for leukocyte Estrace. Red cells and white cells seen. Squamous cell seems. Bacteria seen. And hyaline cast seen. She is getting a culture. Urine hCG was negative. Chest x-ray did not have pneumonia. Abdomen CT did not have any acute bowel or gallbladder problems. I think the leukocytosis is reactive and secondary to the DKA but I will give her a dose of fosfomycin for the UTI. 5. Chronic hyponatremia. I will send a urine for osmolality and spot urine sodium. Will check serum osmolality once her DKA is resolved. It is not needing to be treated this time. IV fluids are ongoing for her DKA. Current Medications Current Medications Current Medications: Current Medications Generic Name Dose Route Start Last Admin Trade Name Freq PRN Reason Stop Dose Admin Albuterol 2.5 mg 10/12/24 05:30 Albuterol Neb 2.5 Mg/3 Ml INH RTQ4H PRN Wheezing Lipase/Protease/Amylase 6 cap 10/12/24 08:00 Lipase/Protease/Amylase Capsule PO TIDWM [facility] Cyanocobalamin 500 mcg 10/12/24 09:00 Cyanocobalamin 500 Mcg Tablet PO DAILY AL Gabapentin 100 mg 10/12/24 06:00 10/12/24 06:18 Gabapentin 100 Mg Capsule PO Not Given TID AL Insulin Human Regular 100 unit in 100 mls @ 4.95 mls/hr 10/12/24 05:00 10/12/24 08:11 Myxredlin 100 Unit/100 Ml Bag IV 1.2 unit/hr .[id number] AL 1.2 mls/hr Administration Protocol 4.95 UNIT/HR Sodium Chloride 1,000 mls @ 150 mls/hr 10/12/24 06:00 10/12/24 08:09 Normal Saline 0.45% IV 150 mls/hr .Q6H40M AL Administration Magnesium Oxide 400 mg 10/12/24 21:00 Magnesium Oxide 400 Mg Tablet PO HS [facility] Oxycodone HCl 5 mg 10/12/24 04:54 10/12/24 06:16 Oxycodone 5 Mg Tablet PO 5 mg Q8HR PRN Administration Pain 5-7 Pantoprazole Sodium 40 mg 10/12/24 07:00 Pantoprazole 40 Mg Tablet PO 0700 [facility] Phenol/Menthol 2 sprays 10/12/24 07:10 10/12/24 08:28 Phenol Throat [place] 177 Ml MM 2 sprays Q2HR PRN Administration Throat Pain Prochlorperazine Edisylate 10 mg 10/12/24 07:57 10/12/24 08:13 Prochlorperazine 10 Mg/2 Ml Vial IVP 10 mg Q6HR PRN Administration Nausea / Vomiting Sucralfate 1 gm 10/12/24 07:00 Sucralfate 1 Gm/10 Ml Udc PO 0700,1100,1600,2200 [facility] Thiamine HCl 100 mg 10/12/24 09:00 Thiamine 100 Mg Tablet PO DAILY [facility] Throat Lozenges 1 lozenge 10/12/24 07:10 Benzocaine/Menthol Lozenge MM Q2HR PRN Throat pain Venlafaxine HCl 75 mg 10/12/24 09:00 Venlafaxine Er 75 Mg Capsule PO DAILY [facility]
[2024-10-12] MEDS: SODIUM CHLORIDE 0.9% 1,000 ML IV SCH (09:41)
[2024-10-12] MEDS: CYANOCOBALAMIN 500 MCG TABLET PO SCH (09:44)
[2024-10-12] MEDS: THIAMINE 100 MG TABLET PO SCH (09:45)
[2024-10-12] MEDS: BENZOCAINE/MENTHOL LOZENGE MM PRN (09:45)
[2024-10-12] MEDS: LIPASE/PROTEASE/AMYLASE CAPSULE PO SCH (09:45)
[2024-10-12] MEDS: VENLAFAXINE ER 75 MG CAPSULE PO SCH (09:45)
[2024-10-12] MEDS: PANTOPRAZOLE 40 MG TABLET PO SCH (09:51)
[2024-10-12] MEDS: hydrALAZINE INJ 20 MG/ML VIAL IVP ONE (09:52)
[2024-10-12] MEDS: SUCRALFATE 1 GM/10 ML UDC PO SCH (09:52)
[2024-10-12 11:19] LABS: ESTIMATED AVERAGE GLUCOSE 260 mg/dL (70-100); HEMOGLOBIN A1c% 10.7 % (4.27-6.07)
[2024-10-12] MEDS: FOSFOMYCIN TROMETHAMINE 3 GM PACKET PO ONE (11:19)
[2024-10-12 12:04] LABS: CALCIUM 9.2 mg/dL (8.5-10.3); CREATININE 0.8 mg/dL (0.6-1.3); POTASSIUM 3.5 mmol/L (3.5-4.5)
--- NOTE | 2024-10-12 12:33 | CT Report ---
PROCEDURE: CT Abdomen/Pelvis WO INDICATIONS: nausea, vomiting, pain TECHNIQUE: A CT scan of the abdomen and pelvis was performed without the use of intravenous contrast. Images we re recorded and evaluated at appropriate window settings. Reformats: coronal and sagittal. For radiat ion dose reduction, the following was used: automated exposure control, adjustment of mA and/or kV ac cording to patient size. COMPARISON: Abdomen ultrasound 10/12/2024, 11/28/2023, CT abdomen pelvis 06/21/2023 FINDINGS: Image quality: Diagnostic. Lower chest: Unremarkable. Liver: No contour-deforming mass. Steatosis. Gallbladder: Unremarkable. Biliary tree: No intrahepatic or extrahepatic dilation, accounting for age. Common bile duct stent is present. Spleen: No splenomegaly. Pancreas: Persistent prominence of the pancreatic head measuring approximately 2.9 x 3.4 cm compared to approximately 5.4 x 4.3 cm. Pancreatic calcifications are present. Adrenals: No adrenal nodule. Kidneys and ureters: No hydronephrosis. Nonobstructing bilateral renal calcifications. Stomach, bowel and peritoneum: No gastric or small bowel dilation. No abnormal wall thickening. No pa thologic free fluid. Prominent hiatal hernia. Lymph nodes: No central or retroperitoneal adenopathy. Vessels: No infrarenal aortic aneurysm. Reproductive organs: Unremarkable. Bladder: Bladder wall thickness is normal, accounting for underdistention. No calcified bladder stone s. Pelvic lymph nodes: No adenopathy by size criteria. Bones: No aggressive osseous abnormality. Other: No significant ventral or inguinal hernia. IMPRESSION: Common bile duct stent with an appearance of the pancreas consistent with sequela of multiple prior i nfection/inflammation. No current inflammatory changes identified. Mild prominence of the pancreatic head is decreased compared to prior exam likely related to prior inflammation. Reviewed by: Poly Benjamin MD on 10/12/2024 12:31 PM PST Approved by: Poly Benjamin MD on 10/12/2024 12:31 PM PST Station ID: [id number]
--- NOTE | 2024-10-12 12:34 | XRAY Report ---
PROCEDURE: XR Chest 1V INDICATIONS: DKA TECHNIQUE: One view of the chest was acquired. COMPARISON: None. FINDINGS: Surgical changes and devices: None. Lungs and pleura: No pleural effusions or pneumothorax. No consolidation. Mediastinum: Mediastinal contours appear normal. Heart size is normal. Bones and chest wall: No suspicious bony lesions. Overlying soft tissues appear unremarkable. IMPRESSION: No acute cardiopulmonary process. The above findings are concordant with preliminary report. Reviewed by: Poly Benjamin MD on 10/12/2024 12:32 PM [facility] Approved by: Poly Benjamin MD on 10/12/2024 12:32 PM [facility] Station ID: [id number]
--- NOTE | 2024-10-12 12:36 | Ultrasound Report ---
PROCEDURE: US Renal (Retroperitoneal) INDICATIONS: ngoc TECHNIQUE: Real-time scanning was performed of the retroperitoneal organs, with image documentation. COMPARISON: CT 06/21/2023 FINDINGS: Right kidney measures 10 cm. Left kidney measures 9 cm. Left kidney was not fully visualized. Patient requested to stop exam. No hydronephrosis. Bladder was underdistended at the time of exam and not well evaluated. IMPRESSION: No gross renal hydronephrosis. Patient requested exam termination before completion. Bladder was also underdistended and not well evaluated. Reviewed by: Alfredito Aguero MD on 10/12/2024 12:34 PM PST Approved by: Alfredito Aguero MD on 10/12/2024 12:34 PM PST Station ID: [id number]
[2024-10-12] MEDS: SODIUM PHOSPHATE 15 MMOL in SODIUM CHLORIDE 0.9% 250 ML IV SCH (13:06)
--- NOTE | 2024-10-12 13:27 | PHARMACY PROGRESS NOTE ---
Best Possible Medication History Admit Date and Time: 10/12/24 0456 Home Medications Medication Instructions Recorded Confirmed Type albuterol sulfate 90 mcg/actuation 2 puff inhalation Q4H PRN Wheezing 05/06/20 10/12/24 History aerosol inhaler vitamins no.121-iron 28 1 ea PO DAILY #30 tabs 12/01/21 10/12/24 Rx mg-folic acid 800 mcg tablet thiamine mononitrate (vit B1) 100 100 mg PO DAILY #30 tabs 12/01/21 10/12/24 Rx mg tablet (Vitamin B-1 (mononitrate)) acetaminophen 500 mg tablet 500 mg PO Q6H PRN Pain 1-4 11/21/22 10/12/24 History potassium chloride 20 mEq 10 meq PO DAILY 11/21/22 10/12/24 History tablet,extended release(part/cryst) (Klor-Con M) ondansetron 4 mg disintegrating 4 mg translingual Q6H PRN Nausea / 12/27/23 10/12/24 Rx tablet Vomiting #20 tabs Venlafaxine Hcl [Effexor Xr] 75 mg PO DAILY 01/08/24 10/12/24 History amitriptyline 50 mg tablet 100 mg PO DAILY 01/08/24 10/12/24 History gabapentin 300 mg capsule 300 mg PO TID 01/08/24 10/12/24 History insulin detemir U-100 100 unit/mL 5 units subcut BID 01/08/24 10/12/24 History (3 mL) subcutaneous pen (Levemir FlexPen) cqaxww-bnaopuah-dpneuaj 6 cap PO TIDWM 01/08/24 10/12/24 History 5,000-17,000-24,000 unit capsule, delayed rel (Zenpep) naproxen 500 mg tablet,delayed 500 mg PO BID PRN Pain 1-4 01/08/24 10/12/24 History release cetirizine 10 mg tablet 10 mg PO DAILY 04/13/24 10/12/24 History cyanocobalamin (vitamin B-12) 500 500 mcg PO DAILY 04/13/24 10/12/24 History mcg tablet duloxetine 30 mg capsule,delayed 30 mg PO DAILY 04/13/24 10/12/24 History release insulin lispro 100 unit/mL 5 unit subcut TIDWM 04/13/24 10/12/24 History subcutaneous pen magnesium oxide 500 mg capsule 500 mg PO HS 04/13/24 10/12/24 History sucralfate 1 gram tablet (Carafate) 1 tab PO ACHS 04/13/24 10/12/24 History empagliflozin 25 mg tablet 25 mg PO DAILY 10/12/24 10/12/24 History (Jardiance) Processed by: Pharmacy Medications reviewed in ED?: No Medication History completed: Yes Patient Interview: Completed Secondary Source(s): Insurance records [facility] Statement: Per [employer] records and [facility] interview. As the person ultimately responsible for medication therapy, providers are able to order a medication from an existing home medication list in [facility] via the "Reconcile Routine" prior to Confirmation of that medication by sales support associate. Such practice is discouraged except when the physician, in their clinical judgment, deems that a medical need exists for a medication without regard to previous use.
[2024-10-12 15:23] LABS: AMPHETAMINE SCREEN,URINE NEGATIVE (NEGATIVE); BENZODIAZEPINES SCREEN, URINE NEGATIVE (NEGATIVE); COCAINE SCREEN URINE NEGATIVE (NEGATIVE); METHADONE SCREEN, URINE NEGATIVE (NEGATIVE); METHAMPHETAMINES SCREEN, URINE NEGATIVE (NEGATIVE); OPIATE SCREEN, URINE POSITIVE (NEGATIVE); THC CANNABINOID SCREEN, URINE POSITIVE (NEGATIVE); TRICYCLIC ANTIDEPRESSANT,URINE POSITIVE (NEGATIVE)
[2024-10-12 15:24] LABS: BARBITURATE SCREEN,UR NEGATIVE (NEGATIVE); BUPRENORPHINE SCREEN, URINE NEGATIVE (NEGATIVE); OXYCODONE SCREEN, URINE POSITIVE (NEGATIVE)
[2024-10-12 15:28] LABS: CALCIUM 9.2 mg/dL (8.5-10.3); CREATININE 0.8 mg/dL (0.6-1.3); POTASSIUM 3.5 mmol/L (3.5-4.5)
[2024-10-12] MEDS: DEXTROSE 5%-0.45% NACL 1,000 ML IV SCH (16:01)
[2024-10-12] MEDS: DEXTROSE 5%-0.45% NACL 1,000 ML IV STA (16:01)
[2024-10-12] MEDS: hydrALAZINE INJ 20 MG/ML VIAL IVP PRN (16:04)
[2024-10-12] MEDS: POTASSIUM CHLOR 10 MEQ/100 ML 10 MEQ/100 ML BAG IV SCH (17:11)
[2024-10-12 17:33] LABS: MAGNESIUM 1.7 mg/dL (1.7-2.3)
[2024-10-12 17:39] LABS: CALCIUM 8.7 mg/dL (8.5-10.3); CREATININE 0.7 mg/dL (0.6-1.3); PHOSPHORUS 1.9 mg/dL (2.5-5.0); POTASSIUM 3.1 mmol/L (3.5-4.5)
[2024-10-12] MEDS: INSULIN GLARGINE-YFGN 300 UNIT/3 ML PEN SUBQ SCH (17:48)
[2024-10-12] MEDS: INSULIN REGULAR HUMAN 100 UNIT in SODIUM CHLORIDE 0.9% 100ML 99 ML IV SCH (17:50)
[2024-10-12] MEDS ORDERED: INSULIN REGULAR HUMAN 100 UNIT in SODIUM CHLORIDE 0.9% 100ML 99 ML IV SCH (20:00)
[2024-10-12] MEDS: INSULIN LISPRO 300 UNIT/3 ML PEN SUBQ SCH (21:35)
[2024-10-12] MEDS: MAGNESIUM OXIDE 400 MG TABLET PO SCH (21:42)
[2024-10-12 23:13] LABS: CALCIUM, IONIZED 1.26 mmol/L (1.09-1.30); VBG PH 7.331 (7.31-7.41)
[2024-10-12 23:22] LABS: MAGNESIUM 1.8 mg/dL (1.7-2.3); POTASSIUM 3.3 mmol/L (3.5-4.5)
[2024-10-12 23:27] LABS: PHOSPHORUS 1.8 mg/dL (2.5-5.0)
[2024-10-13] MEDS: MAGNESIUM OXIDE 400 MG TABLET PO SCH (00:37)
[2024-10-13] MEDS: NEUTRA-PHOS 250 MG TABLET PO SCH ×2 (00:37→06:38)
[2024-10-13] MEDS: POTASSIUM CHLORIDE 20 MEQ/15 ML UDC PO SCH (00:37)
[2024-10-13 05:37] LABS: BASOPHILS % (AUTO) 0.4 %; EOSINOPHILS % (AUTO) 0.2 %; HCT - HEMATOCRIT 36.6 % (37.0-47.0); HGB - HEMOGLOBIN 12.6 g/dL (12.0-16.0); LYMPHOCYTES # (AUTO) 2.8 10^3/uL (1.5-3.5); LYMPHOCYTES % (AUTO) 27.9 %; MEAN CORPUSCULAR HEMOGLOBIN 30.4 pg (27.0-31.0); MEAN CORPUSCULAR HGB CONC 34.4 g/dL (32.0-36.0); MEAN CORPUSCULAR VOLUME 88.4 fL (81.0-99.0); MEAN PLATELET VOLUME 9.7 fL (7.9-10.8); MONOCYTES # (AUTO) 0.7 10^3/uL (0.0-1.0); MONOCYTES % (AUTO) 6.9 %; NEUTROPHILS # (AUTO) 6.4 10^3/uL (1.5-6.6); NEUTROPHILS % (AUTO) 64.4 %; PLT - PLATELET COUNT 352 10^3/uL (130-450); RED BLOOD COUNT 4.14 10^6/uL (4.20-5.40); WHITE BLOOD COUNT 9.9 x10^3/uL (4.8-10.8)
[2024-10-13 05:44] LABS: CALCIUM, IONIZED 1.22 mmol/L (1.09-1.30); VBG PH 7.417 (7.31-7.41)
[2024-10-13 05:57] LABS: CALCIUM 8.8 mg/dL (8.5-10.3); CREATININE 0.6 mg/dL (0.6-1.3); MAGNESIUM 1.9 mg/dL (1.7-2.3); PHOSPHORUS 1.6 mg/dL (2.5-5.0); POTASSIUM 3.3 mmol/L (3.5-4.5)
[2024-10-13] MEDS: POTASSIUM CHLORIDE 20 MEQ TABLET PO SCH (06:38)
[2024-10-13] MEDS: INSULIN LISPRO 300 UNIT/3 ML PEN SUBQ SCH (08:50)
[2024-10-13 14:08] VITALS: O2SAT 95
--- NOTE | 2024-10-13 14:32 | Discharge Summary ---
Discharge Summary Admit Date: 10/12/24 Discharge Date: 10/13/24 Discharging Provider: Ada Steele MD Primary Care Provider: [facility] Code Status: Attempt Resuscitation DIAGNOSES Discharge Diagnoses with Status of Each Condition: 1. Diabetic ketoacidosis 2. Type 2 diabetes mellitus, with hyperglycemia, with long-term use of insulin 3. Noncompliance with medical regimen 4. Hyponatremia 5. Prerenal azotemia 6. Generalized weakness 8. Chronic pancreatitis HPI History of Present Illness: pt with h/o insulin dependent diabetes, liver cirrhosis ("resolved" per pt), chronic pancreatitis, presents with persistent nausea and vomiting x 4-5 days. pt has not been taking her insulin for nearly a week as she has felt weak and tired. no chest pain, sob, no diarrhea. no fevers but has chills. feels weak. lives with children. Her youngest is 10 years old and is the person that helps her control her sugars. Her next is a 15-year-old that is morbidly obese with severe mental health issues. Her oldest son is 30 years old and has severe alcoholism. He states that he is a film tests checker and is never home during the day. denies t/e/d, but states she used to drink. no falls or ams. denies recent travel or sick contacts. In the chart this patient has multiple visits for abdominal pain due to chronic pancreatitis. She is intermittently [facility] for retained common bile duct stones and sludge. 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 First ERCP done in approximately 2021. Stent placed. Multiple visits to the emergency room and had stent removed August 2023. Had a second stent placed in November 2023 due to continued pain and large amounts of sludge and debris in the common bile duct with a large stone that needed to be taken care of. Many visits ago, recommended an EUS guided celiac plexus block to control her pain. Through November 2023 visit in the ER glucose was newly elevated. Seen again in December 2023 and reminded to see her PCP. She has received intermittent in education and follow-up. But the patient has been overwhelmed and not followed up with instruction. Our ER she is in diabetic ketoacidosis. She is hyponatremic with a sodium of 128. Chloride is 87. Carbon dioxide indicates severe acidosis with carbon dioxide buffering. She is 9. Anion gap is 32. BUN is 35, creatinine 1.4. Glucose is 594. CONSULTS | PROCEDURES Procedures: 1. Abdomen and pelvis CT October 12 with common bile duct stent present. Appearance of the pancreas consistent with sequela of multiple prior infection/inflammation. No current inflammatory changes identified. Mild prominence of the pancreatic head is decreased compared to prior exam related to prior inflammation. 2. Chest x-ray without acute cardiopulmonary process. 3. Retroperitoneal ultrasound without any gross renal hydronephrosis. Patient requested exam termination before completion. HOSPITAL COURSE Hospital Course: Patient was placed in the intensive care unit and put on insulin drip. Glucose was able to be brought down over the next 10 hours. She was transition to Lantus 20 units. On the morning of the her glucose was in the 70s. She is able to take p.o. But she really does not want to eat a lot of food. She received extensive instruction from environmental educator on the on how to use continuous glucose monitor. It is also linked to an beatrice on her phone. Although she spent quite a bit of time learning this, understanding it, and and implementing this, on the day of discharge she said she was just overwhelmed and forgot how to do it all. UTI was identified at the admission on her UA. Treatment was with fosfomycin. Preliminary identification is out of a gram-negative avi. At the time of discharge the bacteria has not been identified and should be followed up with the primary care provider. Ultrasound was done to make sure there was no hydronephrosis. We reemphasized that she needs to return to see environmental educator. I will not be discharging her on 20 units of Lantus but we will be discharging her on 18 units of Lantus. And she can take 5 units of lispro as needed. Can go back to taking her sugars manually on a glucometer with a lancet. Social work a bit of time with her on the day of discharge. Provided her with some services that may be helpful to her and her family to provide some stability. She is discharged in stable condition. The appearance is that of a malnourished depressed female who looks much older than her stated age. Cachectic. Blood pressure 116/78. Pulse 96. Respirations 13. 95% on room air. Lungs. Regular rate and rhythm. Abdomen is soft and nontender. Able to get out of bed and ambulate. This document was made in part using voice recognition software. While efforts are made to proofread this document, sound alike and grammatical errors may occur. Greater than 30 minutes was spent coordinating discharge ALLERGIES Allergies Allergy/AdvReac Type Severity Reaction Status Date / Time No Known Drug Allergies Allergy Verified 10/12/24 03:23 MEDICATIONS Ambulatory Orders Medication Instructions Recorded Confirmed albuterol sulfate 90 mcg/actuation 2 puff inhalation Q4H PRN Wheezing 05/06/20 10/12/24 aerosol inhaler vitamins no.121-iron 28 1 ea PO DAILY #30 tabs 12/01/21 10/12/24 mg-folic acid 800 mcg tablet thiamine mononitrate (vit B1) 100 100 mg PO DAILY #30 tabs 12/01/21 10/12/24 mg tablet (Vitamin B-1 (mononitrate)) acetaminophen 500 mg tablet 500 mg PO Q6H PRN Pain 1-4 11/21/22 10/12/24 potassium chloride 20 mEq 10 meq PO DAILY 11/21/22 10/12/24 tablet,extended release(part/cryst) (Klor-Con M) ondansetron 4 mg disintegrating 4 mg translingual Q6H PRN Nausea / 12/27/23 10/12/24 tablet Vomiting #20 tabs Venlafaxine Hcl [Effexor Xr] 75 mg PO DAILY 01/08/24 10/12/24 amitriptyline 50 mg tablet 100 mg PO DAILY 01/08/24 10/12/24 gabapentin 300 mg capsule 300 mg PO TID 01/08/24 10/12/24 byernb-[id number]-oqactxb 6 cap PO TIDWM 01/08/24 10/12/24 5,000-17,000-24,000 unit capsule, delayed rel (Zenpep) naproxen 500 mg tablet,delayed 500 mg PO BID PRN Pain 1-4 01/08/24 10/12/24 release cetirizine 10 mg tablet 10 mg PO DAILY 04/13/24 10/12/24 cyanocobalamin (vitamin B-12) 500 500 mcg PO DAILY 04/13/24 10/12/24 mcg tablet duloxetine 30 mg capsule,delayed 30 mg PO DAILY 04/13/24 10/12/24 release magnesium oxide 500 mg capsule 500 mg PO HS 04/13/24 10/12/24 sucralfate 1 gram tablet (Carafate) 1 tab PO ACHS 04/13/24 10/12/24 insulin lispro 100 unit/mL 5 unit (0.05 mL) subcut TIDWM PRN 10/13/24 10/16/24 subcutaneous pen diabetes #15 mL insulin glargine-yfgn 100 unit/mL 5 unit subcut QPM diabetes 10/16/24 10/16/24 (3 mL) subcutaneous pen LABS 10/13/24 04:30 10/13/24 04:30 Discharge Plan Discharge Patient Disposition: Home, Self Care Condition: Fair Medically Cleared Date:: 10/13/24 Prescriptions: Continued albuterol sulfate 8.5 GM HFA aerosol inhaler 2 puff inhalation Q4H PRN (Reason: Wheezing) Patient Comments: INHALE 2 PUFFS BY MOUTH EVERY 4 HOURS NEEDED FOR WHEEZING patient states she hasn't taken in a year thiamine mononitrate (vit B1) [Vitamin B-1 (mononitrate)] 100 MG tablet 100 mg PO DAILY Qty: 30 0RF PNV no.[id number]-[id number] acid 1 EACH tablet 1 ea PO DAILY Qty: 30 0RF acetaminophen 500 MG tablet 500 mg PO Q6H PRN (Reason: Pain 1-4) potassium chloride [Klor-Con M20] 20 MEQ tablet,ER particles/crystals 10 meq PO DAILY ondansetron 4 MG tablet,disintegrating 4 mg translingual Q6H PRN (Reason: Nausea / Vomiting) Qty: 20 0RF amitriptyline 50 MG tablet 100 mg PO DAILY naproxen 500 MG tablet,delayed release (DR/EC) 500 mg PO BID PRN (Reason: Pain 1-4) Patient Comments: TAKE 1 TABLET BY MOUTH TWICE DAILY NEEDED FOR MILD PAIN (1-3) OR MODERATE PAIN (4-6) (PAIN) gabapentin 300 MG capsule 300 mg PO TID Patient Comments: TAKE 1 CAPSULE BY MOUTH THREE TIMES DAILY Zenpep 1 CAP capsule,delayed release(DR/EC) 6 cap PO TIDWM Patient Comments: TAKE 6 CAPSULES BY MOUTH THREE TIMES DAILY BEFORE MEAL(S) Venlafaxine Hcl [Effexor Xr] 150 MG Cap.Er.24h 75 mg PO DAILY Patient Comments: TAKE 1 CAPSULE BY MOUTH ONCE DAILY cetirizine 10 MG tablet 10 mg PO DAILY sucralfate [Carafate] 1 GM tablet 1 tab PO ACHS cyanocobalamin (vitamin B-12) 500 MCG tablet 500 mcg PO DAILY duloxetine 30 MG capsule,delayed release(DR/EC) 30 mg PO DAILY magnesium oxide 500 MG capsule 500 mg PO HS Changed insulin lispro 100 UNIT/ML insulin pen 5 unit subcut TIDWM PRN (Reason: diabetes) Qty: 15 0RF Discontinued Levemir FlexPen 100 UNIT/ML insulin pen 5 units subcut BID Patient Comments: INJECT 0.1-0.2 ML (10-20 UNITS TOTAL) UNDER THE SKIN NIGHTLY. TITRATE UP EVERY 3 DAYS BY 1 UNIT UNTIL YOU REACH A MAXIMUM OF 15 UNITS OR BLOOD SUGAR IS BETWEEN 120-140 IN THE MORNING WHILST FASTING. Jardiance 25 mg tablet 25 mg PO DAILY Patient Comments: TAKE 1 TABLET BY MOUTH ONCE DAILY No Action insulin glargine-yfgn 100 unit/mL (3 mL) Insulin Pen 5 unit subcut QPM Activity Restrictions: Activity as Tolerated Diet: Diabetic Health Concerns: Diagnosed with diabetes a little over a year ago. You have struggled with self- care because of the events that have happened in your family. There is substance abuse and mental health issues and your children. You all live together and it is a struggle to get through the days. Because of that you have been noncompliant with your medication regimen. You find it overwhelming and are confused about what you need to do. You have not taken your insulin for a few days. This resulted in severely elevated glucose with acid being formed in your blood. He develop something called diabetic ketoacidosis. You came to the emergency room we had to place you in the ICU on insulin drip and get intravenous fluids to correct your glucose, potassium, phosphorus. We were able to transition you back to the long-acting insulin you take. 18 units tonight brought down your sugar well. And you will need to take 5 units of short acting insulin with each meal. The environmental educator work with you while here. We instructed you on the use of continuous glucose monitor and how to give yourself injection. But you are still confused. Instructions for discharge: 1. Please make sure you come back to see the environmental educator to ensure that you are following instructions. It is a matter of life or for you. 2. Please make sure you follow-up with your primary care provider 3. See if your primary care provider can refer you for mental health help. Print Language: Korean Patient Instructions: Insulin Glargine injection Stand Alone Forms: PCP List
[2024-10-13 15:51] VITALS: BP 138/96; TEMP 99.7
--- NOTE | 2024-11-11 21:11 | Discharge Summary ---
Discharge Summary Admit Date: 10/12/24 Discharge Date: 10/13/24 Discharging Provider: Ada Steele MD Code Status: Attempt Resuscitation DIAGNOSES Discharge Diagnoses with Status of Each Condition: 1. Diabetic ketoacidosis 2. Uncontrolled type 2 diabetes mellitus, with complications, on long-term use of insulin 3. Chronic abdominal pain 4. Chronic pancreatitis 5. Severe hypertension 6. Leukocytosis 7. Chronic hyponatremia HPI History of Present Illness: Admit November 27, 2022 for chronic pancreatitis and control of abdominal pain with IV Dilaudid and IV antiemetics. At that time she was due to get a second ERCP at [facility] to remove retained common bile duct stones. ER visit November 29 for left arm phlebitis ER visit March 06 2023 for headache. Responded to IV fluids, droperidol, Dilaudid. ER visit March 08, 2023 for tripping over her dog's leash, face planting on the gravel, loss of consciousness, and a facial laceration with a headache. GI visit March 29, 2023. [facility] Dr. Ornelas. 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 Previous history of CBD stent that was placed and is felt to be potentially contributing to her symptoms at this time due to the nature of biliary stricture. Given severity of patient's symptoms I recommend stent removal at this time and I will attempt to cannulate the pancreatic duct once more which was unsuccessful at . However patient needs to quit smoking before procedure. She would also benefit from EUS guided celiac plexus block. Plan was to proceed with EUS/ERCP with plans for plexus block. ER visit April 01, 2023 for epigastric abdominal pain. IV fluids, IV Dilaudid, pain resolved and went home. ER visit May 05, 2023 generalized abdominal pain in the ER. Nausea vomiting. IV fluids, IV Zofran, IV morphine, IV Dilaudid, IV Toradol. On-call GI at [facility] called. No need for immediate transfer or urgent intervention. ER May 11, 2023. Right upper quadrant pain. Chronic urinary hesitancy and difficulty voiding. Having issues with refilling pain medicine prescribed by her primary care provider. She was asked to follow-up with her primary care provider. ER May 12, 2023 headache and vomiting. She mentions that stent is to be removed May 13 but everyone has COVID. Treated with IV fluids, Toradol, droperidol and Dilaudid. Dixon better sent home. ER June 10, 2023 Evaluation and treatment of chronic abdominal pain. Stent removal now rescheduled for June 23, 2023. Ran out of tramadol. Ran out of Zofran. Half a milligram of Dilaudid, single dose of tramadol improved symptoms and she went home. Discharged on [place] prepack. June 21, 2023 abdominal pain visit in the ER. Supposed to see ER doctor today for stent removal but because was porting increased pain they referred her to ER. CT with inflammation around the pancreas concerning for acute on chronic pancreatitis. Given single dose of medication. Discharged and urged to follow- up with GI to get stent removed. E. coli grew out of urine. Patient without symptoms and follow-up 2 days later. August 07, 2023 abdominal pain. Mentioned that July she had an ERCP with Dr. Ornelas. Sent home. November 28, 2023 right upper quadrant and epigastric pain. ERCP done November 20. Stent removed. Large amount of sludge and debris in both common bile duct and pancreatic duct. Large stone within the pancreatic duct that was crushed in a new pancreatic duct stent placed. Glucose newly elevated. Treated in the ER and encouraged to follow-up with PCP and GI. December 16, 2023 worsening hyperglycemia over 2 months. Having a UTI. Now with fever, blurry vision. Received insulin, IV fluids, antiemetics. Reminded to follow-up with PCP and get diabetic education. Sent home. December 27, 2023. Abdominal pain. Started on metformin in PCP office, also Lantus, lispro, Jardiance. Patient had not gotten from the pharmacy yet. Metformin discontinued. Treated in the ER with IV fluids, insulin, and reinstructed on the use of her medications, and sent home. January 08, 2024. Presents with mid epigastric abdominal pain. Mentions that she had another ERCP and another metal stent. She was home with oxycodone and it was not taking care of the pain and then she felt she was taking too many of the oxycodone. Dr. Ornelas spoken to who feels that the new stent could be stretching out the stricture and causing pain. CT done. Patient given Tylenol droperidol and IV Dilaudid and sleeping soundly. Already had 1 month of oxycodone so no refills. Discharged home. She presented in the network developer hours today. Approximately 3:30 AM complaining of abdominal pain and sore throat. Nausea and vomiting. Sore throat was for a week. She can drink liquids but cannot eat because feels like something is stuck in her throat. She was cold to touch, tachycardic on arrival. Since that time she has been on an IV insulin drip because she was found to be in DKA. But no pneumonia. Even though she is supposed to be on her medications she has not taken them in over a week and these includes Lantus and lispro. She is overwhelmed. Cannot seem to get it together Patient is complaining of abdominal pain. And nausea. The Zofran and the oral oxycodone are working and she would like IV opioids and a different antiemetic.Nursing notes that her blood pressure is rising. The admitting provider gave her clear liquid diet. I explained to the patient that I do want her to drink water, diet drinks, diet Gatorade, unsweetened tea but no carbs. Son is at the bedside. He says that it is hard to support his mom. He, mom, and 10-year-old sister all live together. He is at work during the day. And the 10-year-old was at home with mom so she really does not have a lot of support when she gets sick like this. HOSPITAL COURSE Hospital Course: 1. Diabetic ketoacidosis. Inpatient status with insulin drip, IV fluids, supplementation of potassium, calcium and magnesium are ongoing. I spoke to nutrition and diabetic education. They are going to be working with her to learn how to use a continuous glucose monitor and reinstructed on the use of Lantus and lispro. Even with the extensive time that it was spent with her, she really did not know how to use the beatrice on her phone and we needed to go back to the usual way of glucometer checking in Lantus and lispro. She was more comfortable with that. Her anion gap slowly closed, and CO2 level gradually returned to normal and I was able to take her off the insulin drip and transition her to food and then start Lantus and lispro. 2. Chronic abdominal pain from chronic pancreatitis. Previous notes show that she would have been a good candidate for celiac block. Once the acute issue of her DKA is resolved,She should contact Dr. Ornelas and see if she needs another referral to for this. I did leave a message with his office. She did receive a minimal amount of Dilaudid during the stay. 3. Severe hypertension. A new problem for her. This was associated when she had severe nausea. And improved when her pain and nausea were controlled. I discharge blood pressure was 138/96. I have asked her to follow-up with a primary care provider to see if she needs medications. 4. Leukocytosis. Urinalysis had proteinuria, glucosuria, ketonuria, hematuria, was positive for nitrites. Negative for leukocyte Estrace. Red cells and white cells seen. Squamous cell seems. Bacteria seen. And hyaline cast seen. She is getting a culture. Urine hCG was negative. Chest x-ray did not have pneumonia. Abdomen CT did not have any acute bowel or gallbladder problems. I think the leukocytosis is reactive and secondary to the DKA but I gave her a dose of fosfomycin for the UTI. 5. Chronic hyponatremia. I ordered a urine for osmolality and spot urine sodium. Will check serum osmolality once her DKA is resolved. It is not needing to be treated this time. IV fluids are ongoing for her DKA. She was discharged in stable condition. Still confused about how to use a continuous glucose machine. Nutrition services had already left for the day. Blood pressure was 138/96. Pulse 97. Respirations 18. Temperature 37.6. 95% saturation on room air. She is 5 feet 3 inches tall, 49.5 kg. She is thin, appears malnourished, very fatigued. Flat affect. Clear lungs. Regular rate and rhythm. No longer has the abdominal pain that she had on admission but mild epigastric and left upper quadrant aching with palpation. Hypoactive bowel sounds. Thin extremities with wasted muscle mass. But awake and alert to person, place, time and situation. Charge instructions to the patient are as below as are her prescribed medications This document was made in part using voice recognition software. While efforts are made to proofread this document, sound alike and grammatical errors may occur. ALLERGIES Allergies Allergy/AdvReac Type Severity Reaction Status Date / Time No Known Drug Allergies Allergy Verified 10/12/24 03:23 MEDICATIONS Ambulatory Orders Medication Instructions Recorded Confirmed albuterol sulfate 90 mcg/actuation 2 puff inhalation Q4H PRN Wheezing 05/06/20 10/12/24 aerosol inhaler vitamins no.121-iron 28 1 ea PO DAILY #30 tabs 12/01/21 10/12/24 mg-folic acid 800 mcg tablet thiamine mononitrate (vit B1) 100 100 mg PO DAILY #30 tabs 12/01/21 10/12/24 mg tablet (Vitamin B-1 (mononitrate)) acetaminophen 500 mg tablet 500 mg PO Q6H PRN Pain 1-4 11/21/22 10/12/24 potassium chloride 20 mEq 10 meq PO DAILY 11/21/22 10/12/24 tablet,extended release(part/cryst) (Klor-Con M) ondansetron 4 mg disintegrating 4 mg translingual Q6H PRN Nausea / 12/27/23 10/12/24 tablet Vomiting #20 tabs Venlafaxine Hcl [Effexor Xr] 75 mg PO DAILY 01/08/24 10/12/24 amitriptyline 50 mg tablet 100 mg PO DAILY 01/08/24 10/12/24 gabapentin 300 mg capsule 300 mg PO TID 01/08/24 10/12/24 iggcvs-cpmmdiis-olmbjru 6 cap PO TIDWM 01/08/24 10/12/24 5,000-17,000-24,000 unit capsule, delayed rel (Zenpep) naproxen 500 mg tablet,delayed 500 mg PO BID PRN Pain 1-4 01/08/24 10/12/24 release cetirizine 10 mg tablet 10 mg PO DAILY 04/13/24 10/12/24 cyanocobalamin (vitamin B-12) 500 500 mcg PO DAILY 04/13/24 10/12/24 mcg tablet duloxetine 30 mg capsule,delayed 30 mg PO DAILY 04/13/24 10/12/24 release magnesium oxide 500 mg capsule 500 mg PO HS 04/13/24 10/12/24 sucralfate 1 gram tablet (Carafate) 1 tab PO ACHS 04/13/24 10/12/24 insulin lispro 100 unit/mL 5 unit (0.05 mL) subcut TIDWM PRN 10/13/24 10/16/24 subcutaneous pen diabetes #15 mL insulin glargine-yfgn 100 unit/mL 5 unit subcut QPM diabetes 10/16/24 10/16/24 (3 mL) subcutaneous pen LABS 10/13/24 04:30 10/13/24 04:30 Discharge Plan Discharge Patient Disposition: 01 Home, Self Care Condition: Fair Medically Cleared Date:: 10/13/24 Prescriptions: Continued albuterol sulfate 8.5 GM HFA aerosol inhaler 2 puff inhalation Q4H PRN (Reason: Wheezing) Patient Comments: INHALE 2 PUFFS BY MOUTH EVERY 4 HOURS NEEDED FOR WHEEZING patient states she hasn't taken in a year thiamine mononitrate (vit B1) [Vitamin B-1 (mononitrate)] 100 MG tablet 100 mg PO DAILY Qty: 30 0RF PNV no.[id number]-[id number] acid 1 EACH tablet 1 ea PO DAILY Qty: 30 0RF acetaminophen 500 MG tablet 500 mg PO Q6H PRN (Reason: Pain 1-4) potassium chloride [Klor-Con M20] 20 MEQ tablet,ER particles/crystals 10 meq PO DAILY ondansetron 4 MG tablet,disintegrating 4 mg translingual Q6H PRN (Reason: Nausea / Vomiting) Qty: 20 0RF amitriptyline 50 MG tablet 100 mg PO DAILY naproxen 500 MG tablet,delayed release (DR/EC) 500 mg PO BID PRN (Reason: Pain 1-4) Patient Comments: TAKE 1 TABLET BY MOUTH TWICE DAILY NEEDED FOR MILD PAIN (1-3) OR MODERATE PAIN (4-6) (PAIN) gabapentin 300 MG capsule 300 mg PO TID Patient Comments: TAKE 1 CAPSULE BY MOUTH THREE TIMES DAILY Zenpep 1 CAP capsule,delayed release(DR/EC) 6 cap PO TIDWM Patient Comments: TAKE 6 CAPSULES BY MOUTH THREE TIMES DAILY BEFORE MEAL(S) Venlafaxine Hcl [Effexor Xr] 150 MG Cap.Er.24h 75 mg PO DAILY Patient Comments: TAKE 1 CAPSULE BY MOUTH ONCE DAILY cetirizine 10 MG tablet 10 mg PO DAILY sucralfate [Carafate] 1 GM tablet 1 tab PO ACHS cyanocobalamin (vitamin B-12) 500 MCG tablet 500 mcg PO DAILY duloxetine 30 MG capsule,delayed release(DR/EC) 30 mg PO DAILY magnesium oxide 500 MG capsule 500 mg PO HS Changed insulin lispro 100 UNIT/ML insulin pen 5 unit subcut TIDWM PRN (Reason: diabetes) Qty: 15 0RF Discontinued Levemir FlexPen 100 UNIT/ML insulin pen 5 units subcut BID Patient Comments: INJECT 0.1-0.2 ML (10-20 UNITS TOTAL) UNDER THE SKIN NIGHTLY. TITRATE UP EVERY 3 DAYS BY 1 UNIT UNTIL YOU REACH A MAXIMUM OF 15 UNITS OR BLOOD SUGAR IS BETWEEN 120-140 IN THE MORNING WHILST FASTING. Jardiance 25 mg tablet 25 mg PO DAILY Patient Comments: TAKE 1 TABLET BY MOUTH ONCE DAILY No Action insulin glargine-yfgn 100 unit/mL (3 mL) Insulin Pen 5 unit subcut QPM Activity Restrictions: Activity as Tolerated Diet: Diabetic Health Concerns: Diagnosed with diabetes a little over a year ago. You have struggled with self- care because of the events that have happened in your family. There is substance abuse and mental health issues and your children. You all live together and it is a struggle to get through the days. Because of that you have been noncompliant with your medication regimen. You find it overwhelming and are confused about what you need to do. You have not taken your insulin for a few days. This resulted in severely elevated glucose with acid being formed in your blood. He develop something called diabetic ketoacidosis. You came to the emergency room we had to place you in the ICU on insulin drip and get intravenous fluids to correct your glucose, potassium, phosphorus. We were able to transition you back to the long-acting insulin you take. 18 units tonight brought down your sugar well. And you will need to take 5 units of short acting insulin with each meal. The diabetes educator work with you while here. We instructed you on the use of continuous glucose monitor and how to give yourself injection. But you are still confused. Instructions for discharge: 1. Please make sure you come back to see the diabetes educator to ensure that you are following instructions. It is a matter of life or for you. 2. Please make sure you follow-up with your primary care provider 3. See if your primary care provider can refer you for mental health help. Print Language: Russian Patient Instructions: Insulin Glargine injection Stand Alone Forms: PCP List
== END 2024-10-13 15:53 | disposition home or self-care (01) | DRG 638 ==
LOC: EDBD → ED 03:15 → ICU 04:56
PROVIDERS: ADMIT Student in an Organized Health Care Education/Training Program; ATTEND Student in an Organized Health Care Education/Training Program